=== PATIENT | female | born 1960 | race Caucasian/White ===

== ENCOUNTER 2017-01-31 19:48 | Inpatient (IN) | payer OTHER ==
--- NOTE | 2017-01-31 20:18 | ED ---
SOB HPI - General Source: patient, EMS, RN notes reviewed Mode of arrival: EMS Limitations: no limitations <Syd Multani - Last Filed: 01/31/17 22:47> <Burke Hodgson - Last Filed: 01/31/17 23:00> - General Chief Complaint: Shortness of Breath Stated Complaint: BELLA Time Seen by Provider: 01/31/17 20:04 - History of Present Illness Initial Comments: This a 56-year-old female presents emergency department chief complaint of shortness of breath. Patient states her last few days she's had increased shortness of breath. Patient has extensive medical history including CHF, COPD , asthma, A. fib, renal insufficiency, liver disease. Patient states that she normally does breathing treatments at home have not been helping. She did have treatment by EMS which gave her minimal relief. She does state that she's had more "gurgling". Patient states she's had some swelling of her lower extremities worse on the left because she dangles it over the edge of the bed. Patient has no history of DVTs. Patient states she takes Coumadin daily for A. fib. Patient denies any chest pain. Denies fever, chills. (Syd Multani) - Related Data Home Medications Medication Instructions Recorded Confirmed ALPRAZolam [Xanax] 0.25 mg PO TID PRN 05/19/15 09/23/16 HYDROcodone/APAP 10-325MG [[place] 1 tab PO Q4H PRN 05/19/15 09/23/16 10-325] Ipratropium/Albuterol Sulfate 1 puff INHALATION RT-QID 05/19/15 09/23/16 [Combivent Respimat Inhaler] Ipratropium-Albuterol Nebulize 3 ml INHALATION RT-DAILY PRN 08/30/16 09/23/16 [Duoneb 0.5 mg-3 mg/3 ml Soln] Ipratropium-Albuterol Nebulize 3 ml INHALATION RT-Q6H 08/30/16 09/23/16 [Duoneb 0.5 mg-3 mg/3 ml Soln] Atenolol 25 mg PO DAILY 09/14/16 09/23/16 Ferrous Sulfate [Feosol] 325 mg PO HS 09/14/16 09/23/16 Insulin Aspart [NovoLOG] See Protocol SQ ACHS 09/14/16 09/23/16 Pantoprazole Sodium [Protonix] 40 mg PO DAILY 09/14/16 09/23/16 Warfarin [Coumadin] 1.5 mg PO HS 09/14/16 09/23/16 predniSONE 20 mg PO DAILY 09/14/16 09/23/16 Bisacodyl [Dulcolax] 10 mg RECTAL DAILY PRN 09/23/16 09/23/16 Ipratropium/Albuterol Sulfate 1 puff INHALATION RT-QID 09/23/16 09/23/16 [Combivent Respimat Inhaler] Lactose-Reduced Food [Ensure Plus] 1 can PO BID@1000,1400 09/23/16 09/23/16 Magnesium Hydroxide [Milk of 2,400 mg PO DAILY PRN 09/23/16 09/23/16 Magnesia] Na Phos,M-B/Na Phos,Di-Ba [Fleet 133 ml RECTAL DAILY PRN 09/23/16 09/23/16 Adult] Sodium Polystyrene Sulfonate 15 gm PO ONCE@1600 09/23/16 09/23/16 [Kayexalate] cefTRIAXone [Rocephin] 2,000 mg IVPB Q24HR 09/23/16 09/23/16 Previous Rx's Medication Instructions Recorded Torsemide [Demadex] 40 mg PO BID #1 tablet 09/30/16 Allergies Allergy/AdvReac Type Severity Reaction Status Date / Time aspirin Allergy Unknown Verified 01/31/17 22:23 Review of Systems ROS Other: All systems not noted in ROS Statement are negative. <Syd Multani - Last Filed: 01/31/17 22:47> ROS Other: All systems not noted in ROS Statement are negative. <Burke Hodgson - Last Filed: 01/31/17 23:00> ROS Statement: Those systems with pertinent positive or pertinent negative responses have been documented in the HPI. Past Medical History Past Medical History: Atrial Fibrillation, Asthma, Heart Failure, COPD, Diabetes Mellitus, GI Bleed, Liver Disease Additional Past Medical History / Comment(s): Severe mitral valve stenosis and severe tricuspid valve regurgitation, Shoulder pain, emphysema History of Any Multi-Drug Resistant Organisms: VRE Date of last positivie culture/infection: 10/25/16 MDRO Source:: Urine Past Surgical History: Hysterectomy Additional Past Surgical History / Comment(s): 2 mitral valve balloon valvuloplasty Additional Past Anesthesia/Blood Transfusion Reaction / Comment(s): no history of previous blood transfusion Past Psychological History: Anxiety Additional Psychological History / Comment(s): Single. Lives with adult daughter. no experience or international travel. No animal exposures. Positive tobacco use. No current alcohol or injection drug use Smoking Status: Current every day smoker Past Alcohol Use History: None Reported Additional Past Alcohol Use History / Comment(s): states heavier ETOH use in teens and 20's, none recent Past Drug Use History: None Reported - Past Family History Father Family Medical History: Dementia Mother Additional Family Medical History / Comment(s): valve disorder <Syd Multani - Last Filed: 01/31/17 22:47> General Exam Limitations: no limitations General appearance: alert, in no apparent distress, cachectic Head exam: Present: atraumatic, normocephalic, normal inspection ENT exam: Present: normal exam, mucous membranes moist, other (Nasal cannula in place). Absent: normal oropharynx (Edentulous) Neck exam: Present: normal inspection. Absent: tenderness, meningismus, lymphadenopathy Respiratory exam: Present: respiratory distress (Mild), wheezes, rales. Absent : normal lung sounds bilaterally, rhonchi, stridor Cardiovascular Exam: Present: regular rate, normal rhythm, normal heart sounds. Absent: systolic murmur, diastolic murmur, rubs, gallop, clicks GI/Abdominal exam: Present: soft, normal bowel sounds. Absent: distended, tenderness, guarding, rebound, rigid <Syd Multani - Last Filed: 01/31/17 22:47> Medical Decision Making - Lab Data Result diagrams: 01/31/17 20:21 01/31/17 20:21 <Syd Multani - Last Filed: 01/31/17 22:47> - Lab Data Result diagrams: 01/31/17 20:21 01/31/17 20:21 <Burke Hodgson - Last Filed: 01/31/17 23:00> - Medical Decision Making Medical decision-making. The patient case was discussed with Dr. Eubanks her attending. Patient be admitted his service. Current problems including right upper and right lower lobe pneumonia with CHF discussed. The patient has not been on her Coumadin for 4 days she will be heparinized. Her current INR 1.2. She does have history of chronic A. fib. White count elevated 16.7 hemoglobin 9.4. She was started on Levaquin and Lasix since we have dressed emergency room. Dr. Eubanks wants her admitted with consultation from cardiology and pulmonary service Dr. raza . Dr. Hodgson (Burke Hodgson) - Lab Data Lab Results 01/31/17 01/31/17 01/31/17 Range/Units 20:21 20:21 20:21 WBC 16.6 H (3.8-10.6) k/uL RBC 4.57 (3.80-5.40) m/uL Hgb 9.4 L (11.4-16.0) gm/dL Hct 32.5 L (34.0-46.0) % MCV 71.0 L (80.0-100.0) fL MCH 20.6 L (25.0-35.0) pg MCHC 29.0 L (31.0-37.0) g/dL RDW 16.4 H (11.5-15.5) % Plt Count 257 (150-450) k/uL Neutrophils % 78 % Lymphocytes % 13 % Monocytes % 5 % Eosinophils % 2 % Basophils % 1 % Neutrophils # 13.0 H (1.3-7.7) k/uL Lymphocytes # 2.1 (1.0-4.8) k/uL Monocytes # 0.8 (0-1.0) k/uL Eosinophils # 0.3 (0-0.7) k/uL Basophils # 0.1 (0-0.2) k/uL Hypochromasia Marked Anisocytosis Slight Microcytosis Moderate PT (9.0-12.0) sec INR (<1.1) APTT (22.0-30.0) sec VBG pH (7.31-7.41) VBG pCO2 (37-51) mmHg VBG HCO3 (24-28) mmol/L Sodium 133 L (137-145) mmol/L Potassium 4.9 (3.5-5.1) mmol/L Chloride 101 (98-107) mmol/L Carbon Dioxide 26 (22-30) mmol/L Anion Gap 6 mmol/L BUN 16 (7-17) mg/dL Creatinine 0.63 (0.52-1.04) mg/dL Est GFR (MDRD) Af Amer >60 (>60 ml/min/1.73 sqM) Est GFR (MDRD) Non-Af >60 (>60 ml/min/1.73 sqM) Glucose 117 H (74-99) mg/dL Calcium 8.0 L (8.4-10.2) mg/dL Magnesium 2.0 (1.6-2.3) mg/dL Total Bilirubin 1.1 (0.2-1.3) mg/dL AST 33 (14-36) U/L ALT 19 (9-52) U/L Alkaline Phosphatase 137 H (38-126) U/L Total Creatine Kinase 68 (30-135) U/L CK-MB (CK-2) 4.4 H* (0.0-2.4) ng/mL CK-MB (CK-2) Rel Index 6.5 Troponin I 0.032 (0.000-0.034) ng/mL NT-Pro-B Natriuret Pep pg/mL Total Protein 6.5 (6.3-8.2) g/dL Albumin 2.6 L (3.5-5.0) g/dL 01/31/17 01/31/17 01/31/17 Range/Units 20:21 22:19 22:19 WBC (3.8-10.6) k/uL RBC (3.80-5.40) m/uL Hgb (11.4-16.0) gm/dL Hct (34.0-46.0) % MCV (80.0-100.0) fL MCH (25.0-35.0) pg MCHC (31.0-37.0) g/dL RDW (11.5-15.5) % Plt Count (150-450) k/uL Neutrophils % % Lymphocytes % % Monocytes % % Eosinophils % % Basophils % % Neutrophils # (1.3-7.7) k/uL Lymphocytes # (1.0-4.8) k/uL Monocytes # (0-1.0) k/uL Eosinophils # (0-0.7) k/uL Basophils # (0-0.2) k/uL Hypochromasia Anisocytosis Microcytosis PT 12.1 H (9.0-12.0) sec INR 1.2 (<1.1) APTT 28.6 (22.0-30.0) sec VBG pH 7.42 H (7.31-7.41) VBG pCO2 41 (37-51) mmHg VBG HCO3 26 (24-28) mmol/L Sodium (137-145) mmol/L Potassium (3.5-5.1) mmol/L Chloride (98-107) mmol/L Carbon Dioxide (22-30) mmol/L Anion Gap mmol/L BUN (7-17) mg/dL Creatinine (0.52-1.04) mg/dL Est GFR (MDRD) Af Amer (>60 ml/min/1.73 sqM) Est GFR (MDRD) Non-Af (>60 ml/min/1.73 sqM) Glucose (74-99) mg/dL Calcium (8.4-10.2) mg/dL Magnesium (1.6-2.3) mg/dL Total Bilirubin (0.2-1.3) mg/dL AST (14-36) U/L ALT (9-52) U/L Alkaline Phosphatase (38-126) U/L Total Creatine Kinase (30-135) U/L CK-MB (CK-2) (0.0-2.4) ng/mL CK-MB (CK-2) Rel Index Troponin I (0.000-0.034) ng/mL NT-Pro-B Natriuret Pep 6820 pg/mL Total Protein (6.3-8.2) g/dL Albumin (3.5-5.0) g/dL 01/31/17 21:22 EKG performed at 20:55 atrial fibrillation with right axis deviation, rate of 94 , QRS duration 82, QT/QTC 336/420 prior EKGs show history of A. fib (Syd Multani) Disposition <Syd Multani - Last Filed: 01/31/17 22:47> <Burke Hodgson - Last Filed: 01/31/17 23:00> Clinical Impression: COPD (chronic obstructive pulmonary disease), Afib, Anemia, Pneumonia, Congestive heart failure Disposition: ADMITTED IP TO THIS HOSP Condition: Poor Referrals: Morales Eubanks MD [Primary Care Provider] - 1-2 days
[2017-01-31] MEDS ORDERED: IPRATROPIUM-ALBUTEROL 3 ML NEB INHALATION STA (20:19)
[2017-01-31 20:37] LABS: Anisocytosis Slight; Basophils # (A) 0.1 k/uL (0-0.2); Basophils % (A) 1 %; CH 20.4; Eosinophils # (A) 0.3 k/uL (0-0.7); Eosinophils % (A) 2 %; HCT 32.5 % (34.0-46.0); HDW 3.24; HGB 9.4 gm/dL (11.4-16.0); Hypochromasia Marked; Luc # (Auto) 0.28; Luc % (Auto) 2; Lymphocytes # (A) 2.1 k/uL (1.0-4.8); Lymphocytes % (A) 13 %; MCH 20.6 pg (25.0-35.0); Mean Platelet Volume 7.2; Microcytosis Moderate; Monocytes # (A) 0.8 k/uL (0-1.0); Monocytes % (A) 5 %; Neutrophils % (A) 78 %; RBC 4.57 m/uL (3.80-5.40); RDW 16.4 % (11.5-15.5); WBC 16.6 k/uL (3.8-10.6); WBC (Perox) 17.24
[2017-01-31 20:55] LABS: ALT 19 U/L (9-52); AST 33 U/L (14-36); Alkaline Phosphatase 137 U/L (38-126); Anion Gap 6 mmol/L; Blood Urea Nitrogen 16 mg/dL (7-17); Carbon Dioxide 26 mmol/L (22-30); Chloride 101 mmol/L (98-107); Glucose 117 mg/dL (74-99); Non-African American GFR(MDRD) >60 (>60 ml/min/1.73 sqM); Potassium 4.9 mmol/L (3.5-5.1); Sodium 133 mmol/L (137-145); Total Bilirubin 1.1 mg/dL (0.2-1.3); Total Protein 6.5 g/dL (6.3-8.2)
[2017-01-31 21:14] LABS: Troponin I 0.032 ng/mL (0.000-0.034)
[2017-01-31 21:18] LABS: Creatine Kinase MB 4.4 ng/mL (0.0-2.4)
--- NOTE | 2017-01-31 21:20 | XR ---
EXAMINATION TYPE: XR chest 2V DATE OF EXAM: 01/31/2017 9:12 PM COMPARISON: Prior chest x-ray September 23, 2016. HISTORY: Shortness of breath TECHNIQUE: Frontal and lateral views of the chest are obtained. FINDINGS: Cardiomegaly is redemonstrated. There is new small to moderate-sized right pleural effusio n. There is tiny left pleural effusion. Mild to moderate central vascular congestion is present. Ther e is more focal airspace opacity involving the right upper lobe and right lung base. No pneumothorax is seen bilaterally. Underlying emphysematous change is not excluded. Osseous structures are intact. IMPRESSION: Consider CHF exacerbation as there is cardiomegaly with mild to moderate central vascular congestion with tiny left pleural effusion and small to moderate-sized right pleural effusion. In ad dition more suspicious focal infiltrate in the right upper lobe and right lung base is felt present. Clinical correlation advised.
[2017-01-31] MEDS ORDERED: LEVOFLOXACIN 750MG-D5W PMX 750 MG in DEXTROSE/WATER 1 150ML.BAG IVPB STA (21:21)
[2017-01-31] MEDS ORDERED: FUROSEMIDE 10 MG/ML 4 ML VIAL IV STA (21:21)
[2017-01-31] MEDS ORDERED: ALBUTEROL NEBULIZED 2.5 MG/3 ML INHALATION STA (21:59)
[2017-01-31] MEDS ORDERED: HYDROcodone/APAP 10-325MG 1 EACH TAB PO ONE (22:26)
[2017-01-31 22:35] LABS: VBG PH 7.42 (7.31-7.41)
[2017-01-31 22:44] LABS: INR 1.2 (<1.1); Partial Thromboplastin Time 28.6 sec (22.0-30.0); Prothrombin Time 12.1 sec (9.0-12.0)
[2017-01-31] MEDS ORDERED: PNEUMONIA PROTOCOL UTILIZED 1 EACH MISC PO PRN (22:48)
[2017-01-31] MEDS ORDERED: hydrOXYzine HCL 25 MG TAB PO STA (22:51)
[2017-01-31] MEDS ORDERED: HEPARIN SODIUM,PORCINE 5,000 UNIT/ML 1 ML VIAL IV ONE (22:51)
[2017-02-01] MEDS: HEPARIN SODIUM,PORCINE/D5W PMX 25,000 UNIT in DEXTROSE/WATER 1 500ML.BAG IV SCH (00:32)
[2017-02-01] MEDS: HYDROcodone/APAP 10-325MG 1 EACH TAB PO PRN ×4 (02:29→22:10)
[2017-02-01 05:54] LABS: Glucose,Whole Blood 172 mg/dL (75-99)
[2017-02-01] MEDS: FUROSEMIDE 10 MG/ML 4 ML VIAL IV SCH ×3 (07:19→23:23)
[2017-02-01] MEDS: INSULIN LISPRO (humaLOG) 300 UNIT/3 ML VIAL SQ SCH ×4 (07:31→23:30)
[2017-02-01] MEDS: IPRATROPIUM-ALBUTEROL 3 ML NEB INHALATION SCH ×4 (09:15→20:15)
[2017-02-01] MEDS: ATENOLOL 25 MG TAB PO SCH (09:39)
[2017-02-01] MEDS: PANTOPRAZOLE 40 MG TABLET PO SCH (09:39)
[2017-02-01] MEDS ORDERED: NON-FORMULARY DRUG (Lactose-Reduced Food [Ensure Plus] 1 CAN) PO SCH (10:00)
--- NOTE | 2017-02-01 11:08 | XR ---
EXAMINATION TYPE: XR chest 2V DATE OF EXAM: 02/01/2017 8:52 AM COMPARISON: Prior chest x-ray 31 January 2017 HISTORY: Shortness of breath TECHNIQUE: Frontal and lateral views of the chest are obtained. FINDINGS: Increased density is present at the right lung base similar to prior exam. There is no renny dent pneumothorax. Heart size is not significantly changed. Interstitium mildly increased. IMPRESSION: Correlate for right middle, upper lobe pneumonia. Follow-up recommended.
--- NOTE | 2017-02-01 11:39 | P.CNPUL ---
History of Present Illness Consult date: 02/01/17 Requesting physician: Morales Eubanks Reason for consult: COPD Chief complaint: Shortness of breath History of present illness: This is a 56-year-old female is being evaluated and examined today. This patient came into the emergency room with some complaint of shortness of breath that had been increasing over the last few days. This patient was brought in by a EMS and was given breathing treatments with minimal relief. The patient states that she's felt more "gurgling" in her lungs. The patient does have a significant medical history for congestive heart failure, COPD, asthma, A. fib, renal insufficiency, and liver disease. The patient also is noted to have some increased swelling of her lower extremities that has gotten worse over the last few days as well. Patient has no history of DVTs, and takes Coumadin daily for A. fib, however she has not taken her Coumadin for 4 days therefore she will be heparinized. This patient does use home oxygen in the form of 2 L, today she is using 6 L of oxygen via nasal cannula. Patient states that she has a dry productive cough. Review of Systems 14 point review of systems was completed and is negative other than what's noted in the HPI Past Medical History Past Medical History: Atrial Fibrillation, Asthma, Heart Failure, COPD, Diabetes Mellitus, GERD/Reflux, GI Bleed, Liver Disease, Pneumonia, Renal Disease, Skin Disorder Additional Past Medical History / Comment(s): Severe mitral valve stenosis and severe tricuspid valve regurgitation, current decub lower back per pt, UTI with sepsis, anemia, elevated liver enzymes in the past, chronic renal dx, Afib and has had RVR in past. History of Any Multi-Drug Resistant Organisms: VRE Date of last positivie culture/infection: 10/25/16 MDRO Source:: Urine Past Surgical History: Hysterectomy Additional Past Surgical History / Comment(s): 2 mitral valve balloon valvuloplasty, colonoscopy, PICC line insertion (since removed). Additional Past Anesthesia/Blood Transfusion Reaction / Comment(s): Pt has received blood in past without reaction. Past Psychological History: Anxiety Additional Psychological History / Comment(s): Single. Lives with adult daughter and her spouse. Has nebulizer and glucose monitor. no experience or international travel. No animal exposures. Positive tobacco use. No current alcohol or injection drug use Smoking Status: Current every day smoker Past Alcohol Use History: None Reported Additional Past Alcohol Use History / Comment(s): states heavier ETOH use in teens and 20's, none recent Past Drug Use History: None Reported - Past Family History Father Family Medical History: Dementia Additional Family Medical History / Comment(s): Father is in his 80's Mother Family Medical History: Myocardial Infarction ([place]) Additional Family Medical History / Comment(s): valve disorder. Mother of a [place] in her 30's Medications and Allergies Home Medications Medication Instructions Recorded Confirmed Type ALPRAZolam [Xanax] 0.25 mg PO BID PRN 05/19/15 02/01/17 History HYDROcodone/APAP 10-325MG [[place] 1 tab PO Q8H PRN 05/19/15 02/01/17 History 10-325] Ipratropium/Albuterol Sulfate 1 puff INHALATION RT-QID PRN 05/19/15 02/01/17 History [Combivent Respimat Inhaler] Albuterol Nebulized [Ventolin 2.5 mg INHALATION RT-QID PRN 02/01/17 02/01/17 History Nebulized] Amiodarone [Cordarone] 200 mg PO BID 02/01/17 02/01/17 History Digoxin [Digitek] 125 mcg PO DAILY 02/01/17 02/01/17 History Ipratropium Nebulized [Atrovent 0.5 mg INHALATION RT-QID PRN 02/01/17 02/01/17 History Nebulized] Warfarin [Coumadin] 1.5 mg PO HS 02/01/17 02/01/17 History hydrALAZINE HCL [Apresoline] 25 mg PO BID 02/01/17 02/01/17 History traZODone HCL 50 mg PO HS 02/01/17 02/01/17 History Allergies Allergy/AdvReac Type Severity Reaction Status Date / Time aspirin Allergy Unknown Verified 01/31/17 22:23 Physical Exam Vitals: Vital Signs Temp Pulse Pulse Resp BP BP Pulse Ox 02/01/17 09:26 66 02/01/17 09:15 59 L 02/01/17 09:01 95.6 F L 77 22 113/67 98 02/01/17 06:08 64 18 113/67 99 02/01/17 02:43 77 02/01/17 02:36 76 02/01/17 00:39 92 20 111/61 99 01/31/17 23:01 98.4 F 84 22 128/58 99 Intake and Output 01/31/17 02/01/17 02/01/17 22:59 06:59 14:59 Output Total 50 Balance -50 Output: Urine 50 Uretheral ([place]) 50 Other: Voiding Method Indwelling Catheter GENERAL EXAM: Alert, active, comfortable in no apparent distress. HEAD: Normocephalic. EYES: Normal reaction of pupils, equal size. NOSE: Clear with pink turbinates. THROAT: No erythema or exudates. NECK: No masses, no JVD. CHEST: No chest wall deformity. LUNGS: Equal air entry, patient noted to have scattered rhonchi, wheezes and rales. CVS: S1 and S2 normal with no audible mumurs, regular rhythm. ABDOMEN: No hepatosplenomegaly, normal bowel sounds, no guarding or rigidity. EXTREMITIES: 1-2+ edema noted, pedal pulses palpable. SKIN: No rashes CENTRAL NERVOUS SYSTEM: No focal deficits, tone is normal in all 4 extremities. Results - Laboratory Findings CBC and BMP: 01/31/17 20:21 01/31/17 20:21 PT/INR, D-dimer PT 12.1 sec (9.0-12.0) H 01/31/17 22:19 INR 1.2 (<1.1) 01/31/17 22:19 Abnormal lab findings: Abnormal Labs 02/01/17 02/01/17 05:52 05:53 APTT 52.9 H POC Glucose (mg/dL) 172 H - Diagnostic Findings Chest x-ray: report reviewed, image reviewed Assessment and Plan Plan: Assessment Right-sided pneumonia suspected mixed, gram-negative in nature Acute exacerbation of chronic obstructive pulmonary disease Acute on chronic hypoxic respiratory failure Congestive heart failure, diastolic Anemia Atrial fibrillation Plan Medications have been reviewed and will be continued as ordered. IV steroids as well as budesonide inhalation added. We will continue with nebulizer treatments, supplemental oxygen and pulmonary hygiene. Incentive spirometer will be initiated. We will continue to monitor labs/results and adjust treatment as necessary. I performed an examination of the patient and discussed their management with the nurse practitioner. I have reviewed the nurse practitioner's note and agree with the documented findings and plan of care.
[2017-02-01 12:35] LABS: Glucose,Whole Blood 210 mg/dL (75-99)
[2017-02-01] MEDS: methylPREDNISolone SOD SUCCI 40 MG/ML 1 ML VIAL IV SCH ×3 (13:17→23:25)
[2017-02-01 14:20] LABS: Hemoglobin A1C 4.9 % (4.2-6.1)
[2017-02-01 16:30] LABS: Glucose,Whole Blood 118 mg/dL (75-99)
[2017-02-01] MEDS: SODIUM POLYSTYRENE SULFONATE 15 GM/60 ML BOTTLE PO SCH (16:57)
--- NOTE | 2017-02-01 19:35 | HP ---
DATE OF ADMISSION: Patient is in the emergency room waiting for a room. CHIEF COMPLAINT: Severe shortness of breath and general weakness and multiple chronic medical problems. This is a 56-year-old white female who has multiple chronic medical problems and she is known to have chronic obstructive pulmonary disease, chronic congestive heart failure, chronic atrial fibrillation, diabetes mellitus, hypertensive cardiovascular disease, and she has had multiple hospitalizations recently. She also has been in [facility] rehab unit. She is also known to have advanced mitral stenosis with chronic atrial fibrillation. Patient was brought to the emergency room because of increasing shortness of breath for the past one week. In the ER, her CBC showed a WBC of 16.6, hemoglobin 9.4, platelet count 257,000; sodium 133 and potassium 4.9; BNP of 6820. BUN 16 and creatinine 0.63. Her chest x-ray showed right middle and lower lobe pneumonia. Her pulse ox was extremely low. Patient was admitted to the hospital for further evaluation and treatment. PAST MEDICAL HISTORY: She is known to have chronic obstructive pulmonary disease and has had multiple hospitalizations for chronic obstructive pulmonary disease with acute exacerbation and also hypoxic respiratory failure. She has advanced mitral stenosis and has had mitral valvuloplasty in the past. She has chronic atrial fibrillation and chronic congestive heart failure. She is also known to have diabetes mellitus, hypertensive cardiovascular disease and chronic atrial fibrillation. She also has a history of renal failure and electrolyte imbalance. She has a history of VRE. Her current medications include: 1. Xanax 0.25 mg p.o. t.i.d. p.r.n. 2. [place] 10/325 one q.8 hours p.r.n. for pain. She has a history of low back pain. 3. She is also on inhalers and nebulizers DuoNeb and Ventolin. 4. Atenolol 25 mg p.o. daily. 5. Ferrous sulfate 325 mg daily. 6. NovoLog sliding scale. 7. Protonix 40 mg p.o. daily. 8. Coumadin 1.5 mg p.o. daily. 9. Prednisone 20 mg p.o. daily. 10. Kayexalate 15 grams once daily p.r.n. for hyperkalemia. 11. Demadex 40 mg p.o. b.i.d. ALLERGIES: QUESTIONABLY ALLERGIC TO ASPIRIN. SOCIAL HISTORY: She used to be a heavy smoker. She does not drink alcohol. FAMILY HISTORY: Strongly positive for heart disease and diabetes mellitus. REVIEW OF SYSTEMS: Patient denies any headache. Her appetite has been extremely poor. She denies any chest pain, but she is extremely short of breath. She has a history of low back pain and also she has a history of GI bleeding. She has no polyuria or dysuria. She has no neurological symptoms. Physical examination reveals a 56-year-old white female, emaciated and chronically ill-looking. She appears pale and she is extremely short of breath. There is no jaundice. There is no generalized lymphadenopathy. There are no petechiae or bruises. Pulse 88 per minute, irregular. Blood pressure 128/58. Examination of the ENT is negative. Neck is supple. Neck veins are distended. Heart is in atrial fibrillation with controlled ventricular rate. Lungs reveal diminished breath sounds over both base with a few scattered rhonchi and wheezing heard bilaterally. ABDOMEN: Soft and nontender. No mass palpable. Examination of the lower extremities reveals minimal pitting edema. Neurologic examination does not reveal any localizing signs. IMPRESSION: 1. Right middle and lower lobe pneumonia. 2. Chronic obstructive pulmonary disease with acute exacerbation. 3. Hypoxic respiratory failure, acute on chronic. 4. Acute on chronic congestive heart failure, combined diastolic and systolic. 5. Advanced mitral stenosis with a past history of valvuloplasty. 6. Chronic atrial fibrillation. 7. Chronic microcytic anemia due to possible chronic gastrointestinal blood loss. 8. History of chronic renal failure. 9. Hyponatremia. 10. Diabetes mellitus. 11. History of gastroesophageal reflux disease. PLAN: Patient will be admitted to hospital. Heart will be monitored with telemetry. Will get a pulmonology consultation. Dr. Hinds has already been consulted. Will also get cardiology consultation. Prognosis is guarded. Patient will be started on IV antibiotics, updraft treatments, IV Solu-Medrol and placed back on her previous medications. The prognosis is guarded. The diagnosis, prognosis and therapeutic plans were discussed in detail with the patient.
[2017-02-01] MEDS: BUDESONIDE 0.5 MG/2 ML NEBU INHALATION SCH (20:15)
[2017-02-01] MEDS ORDERED: WARFARIN 1.5 MG TAB PO SCH ×2 (21:00)
[2017-02-01] MEDS: LEVOFLOXACIN 750MG-D5W PMX 750 MG in DEXTROSE/WATER 1 150ML.BAG IVPB SCH (22:12)
[2017-02-01] MEDS: ALPRAZolam 0.25 MG TAB PO PRN (23:22)
[2017-02-01] MEDS: traZODone HCL 50 MG TAB PO SCH (23:23)
[2017-02-01] MEDS: hydrALAZINE HCL 25 MG TAB PO SCH (23:23)
[2017-02-01] MEDS: AMIODARONE 200 MG TAB PO SCH (23:23)
[2017-02-02] MEDS: INSULIN LISPRO (humaLOG) 300 UNIT/3 ML VIAL SQ SCH ×4 (06:20→20:49)
[2017-02-02 06:50] LABS: INR 1.2 (<1.1); Prothrombin Time 12.1 sec (9.0-12.0)
[2017-02-02] MEDS: HEPARIN SODIUM,PORCINE/D5W PMX 25,000 UNIT in DEXTROSE/WATER 1 500ML.BAG IV SCH ×2 (06:56→23:14)
[2017-02-02] MEDS: methylPREDNISolone SOD SUCCI 40 MG/ML 1 ML VIAL IV SCH ×4 (07:00→23:11)
[2017-02-02] MEDS: IPRATROPIUM-ALBUTEROL 3 ML NEB INHALATION SCH ×5 (07:44→20:23)
[2017-02-02] MEDS: BUDESONIDE 0.5 MG/2 ML NEBU INHALATION SCH ×2 (07:44→20:23)
[2017-02-02] MEDS: HYDROcodone/APAP 10-325MG 1 EACH TAB PO PRN ×4 (09:31→20:57)
[2017-02-02] MEDS: AMIODARONE 200 MG TAB PO SCH ×2 (09:41→20:47)
[2017-02-02] MEDS: ATENOLOL 25 MG TAB PO SCH (09:41)
[2017-02-02] MEDS: PANTOPRAZOLE 40 MG TABLET PO SCH (09:43)
[2017-02-02 10:27] LABS: Anisocytosis Slight; Basophils % (A) 0 %; CH 20.4; CHCM 28.4; Eosinophils % (A) 0 %; HDW 3.11; HGB 8.1 gm/dL (11.4-16.0); Hypochromasia Marked; Luc # (Auto) 0.07; Luc % (Auto) 1; Lymphocytes # (A) 1.2 k/uL (1.0-4.8); Lymphocytes % (A) 13 %; MCH 19.6 pg (25.0-35.0); MCV 72.5 fL (80.0-100.0); Mean Platelet Volume 8.2; Microcytosis Moderate; Monocytes # (A) 0.3 k/uL (0-1.0); Monocytes % (A) 3 %; Neutrophils # (A) 7.6 k/uL (1.3-7.7); Neutrophils % (A) 83 %; RBC 4.14 m/uL (3.80-5.40); RDW 16.2 % (11.5-15.5); WBC 9.2 k/uL (3.8-10.6); WBC (Perox) 9.42
[2017-02-02 10:31] LABS: MCHC 27.1 g/dL (31.0-37.0)
[2017-02-02 10:41] LABS: ALT 21 U/L (9-52); AST 18 U/L (14-36); Alkaline Phosphatase 94 U/L (38-126); Anion Gap 2 mmol/L; Blood Urea Nitrogen 22 mg/dL (7-17); Carbon Dioxide 32 mmol/L (22-30); Chloride 99 mmol/L (98-107); Glucose 107 mg/dL (74-99); Magnesium 1.7 mg/dL (1.6-2.3); Non-African American GFR(MDRD) >60 (>60 ml/min/1.73 sqM); Potassium 4.5 mmol/L (3.5-5.1); Sodium 133 mmol/L (137-145); Total Bilirubin 0.6 mg/dL (0.2-1.3); Total Protein 5.8 g/dL (6.3-8.2)
--- NOTE | 2017-02-02 10:53 | P.PN ---
Subjective This is a 56-year-old female who is being evaluated and examined today on the sixth floor. Patient came into the emergency room originally with complaints of shortness of breath that had been increasing over the last few days. The patient was brought in by EMS and was given breathing treatments with minimal relief. Patient states that she feels her lungs are "gurgling". Patient does have a significant medical history for congestive heart failure, COPD, asthma, atrial fibrillation, renal insufficiency, and liver disease. The patient also noted to have some increased swelling of her lower extremities that has gotten worse over the last few days as well. Patient has no history of DVTs and takes Coumadin daily for her atrial fibrillation however she has not taken her Coumadin in the last 4 days. The patient does use home oxygen at all times in the form of 2 L via nasal cannula. When she came into the emergency room she was requiring oxygen of 6 L. Upon examination the patient's resting up in bed on 3 L of oxygen she complains of a dry nonproductive cough. Objective - Vital Signs Vital signs: Vital Signs Temp 96.2 F L 02/02/17 09:38 Pulse 94 02/02/17 09:45 Resp 16 02/02/17 09:38 BP 99/56 02/02/17 09:38 Pulse Ox 98 02/02/17 09:38 Intake & Output 02/01/17 02/02/17 02/02/17 18:59 06:59 18:59 Intake Total 750 853.36 320 Balance 750 853.36 320 Weight 52.5 kg Intake: IV 423.2 0.9 160 Heparin Sodium,Porcine/ 113.2 D5w Pmx 25,000 unit In Dextrose/Water 1 500ml. bag @ 12 UNITS/KG/HR 14. 15 mls/hr IV .Q24H [facility] Rx #:[id number] Levofloxacin 750Mg-D5w 150 Pmx 750 mg In Dextrose/ Water 1 150ml.bag @ 100 mls/hr IVPB Q24H [facility] Rx#: [id number] Intake, IV Titration 430.16 Amount Heparin Sodium,Porcine/ 430.16 D5w Pmx 25,000 unit In Dextrose/Water 1 500ml. bag @ 12 UNITS/KG/HR 14. 15 mls/hr IV .Q24H [facility] Rx #:[id number] Oral 750 320 Other: Voiding Method Toilet Toilet - Exam GENERAL EXAM: Alert, active, comfortable in no apparent distress. HEAD: Normocephalic. EYES: Normal reaction of pupils, equal size. NOSE: Clear with pink turbinates. THROAT: No erythema or exudates. NECK: No masses, no JVD. CHEST: No chest wall deformity. LUNGS: Equal air entry with few scattered rhonchi, some expiratory wheezes CVS: S1 and S2 normal with no audible mumurs, regular rhythm. ABDOMEN: No hepatosplenomegaly, normal bowel sounds, no guarding or rigidity. EXTREMITIES: Trace edema noted, pedal pulses palpable. SKIN: No rashes CENTRAL NERVOUS SYSTEM: No focal deficits, tone is normal in all 4 extremities. - Labs CBC & Chem 7: 02/02/17 06:25 01/31/17 20:21 Labs: Abnormal Lab Results - Last 24 Hours (Table) 02/01/17 02/01/17 02/01/17 Range/Units 12:09 16:29 18:39 Hgb (11.4-16.0) gm/dL Hct (34.0-46.0) % MCV (80.0-100.0) fL MCH (25.0-35.0) pg MCHC (31.0-37.0) g/dL RDW (11.5-15.5) % PT (9.0-12.0) sec APTT (22.0-30.0) sec POC Glucose (mg/dL) 210 H 118 H (75-99) mg/dL Troponin I 0.446 H* (0.000-0.034) ng/mL 02/02/17 02/02/17 02/02/17 Range/Units 01:03 06:25 06:25 Hgb 8.1 L (11.4-16.0) gm/dL Hct 30.0 L (34.0-46.0) % MCV 72.5 L (80.0-100.0) fL MCH 19.6 L (25.0-35.0) pg MCHC 27.1 L (31.0-37.0) g/dL RDW 16.2 H (11.5-15.5) % PT 12.1 H (9.0-12.0) sec APTT 40.0 H (22.0-30.0) sec POC Glucose (mg/dL) (75-99) mg/dL Troponin I 0.263 H* (0.000-0.034) ng/mL Assessment and Plan Plan: Assessment Right-sided pneumonia suspected mixed, gram-negative in nature Acute exacerbation of chronic obstructive pulmonary disease Acute on chronic hypoxic respiratory failure Congestive heart failure, combined systolic and diastolic Anemia Atrial fibrillation Plan Medications have been reviewed and will be continued as ordered. IV steroids as well as budesonide inhalation continued. We will continue with nebulizer treatments, supplemental oxygen and pulmonary hygiene. Incentive spirometer encouraged. We will continue to monitor labs/results and adjust treatment as necessary. I performed an examination of the patient and discussed their management with the nurse practitioner. I have reviewed the nurse practitioner's note and agree with the documented findings and plan of care.
[2017-02-02 11:55] LABS: Glucose,Whole Blood 255 mg/dL (75-99)
[2017-02-02] MEDS: hydrALAZINE HCL 25 MG TAB PO SCH ×2 (13:09→20:47)
[2017-02-02] MEDS: FUROSEMIDE 10 MG/ML 4 ML VIAL IV SCH ×2 (13:10→20:48)
[2017-02-02] MEDS ORDERED: HEPARIN SODIUM,PORCINE 5,000 UNIT/ML 1 ML VIAL IV PRN (14:40)
[2017-02-02 14:49] LABS: Glucose,Whole Blood 125 mg/dL (75-99)
[2017-02-02 14:49] LABS: Glucose,Whole Blood 179 mg/dL (75-99)
--- NOTE | 2017-02-02 14:54 | P.CRDCN ---
History of Present Illness Consult date: 02/02/17 Requesting physician: Morales Eubanks Consult reason: shortness of breath Chief complaint: Productive cough and shortness of breath History of present illness: This is a 56-year-old female with known history of atrial fibrillation , severe mitral stenosis, COPD, renal failure, congestive heart failure admissions, who presented to the hospital with symptoms of severe shortness of breath with associated productive cough of green sputum. Patient also states she's been progressively more and more weak over time. Patient was in to [facility] for rehab. White blood cell count on admission 16.6, hemoglobin 9.4, platelet count 257. Potassium 4.9, BUN 16, creatinine 0.3. Troponin 0.032, 0.446, 0.263. BNP level 6820. Chest x-ray reveals congestive heart failure exacerbation with mild to moderate central vascular congestion and tiny left pleural effusion. Subsequent chest x-ray revealed right middle upper lobe pneumonia. EKG on admission atrial fibrillation with a controlled ventricular response. Patient currently receiving treatment for congestive heart failure along with pneumonia. Patient was noted to have mildly abnormal troponins, not consistent with acute coronary syndrome. Past Medical History Past Medical History: Atrial Fibrillation, Asthma, Heart Failure, COPD, Diabetes Mellitus, GERD/Reflux, GI Bleed, Liver Disease, Pneumonia, Renal Disease, Skin Disorder Additional Past Medical History / Comment(s): Severe mitral valve stenosis and severe tricuspid valve regurgitation, current decub lower back per pt, UTI with sepsis, anemia, elevated liver enzymes in the past, chronic renal dx, Afib and has had RVR in past. History of Any Multi-Drug Resistant Organisms: VRE Date of last positivie culture/infection: 10/25/16 MDRO Source:: Urine Past Surgical History: Hysterectomy Additional Past Surgical History / Comment(s): 2 mitral valve balloon valvuloplasty, colonoscopy, PICC line insertion (since removed). Additional Past Anesthesia/Blood Transfusion Reaction / Comment(s): Pt has received blood in past without reaction. Past Psychological History: Anxiety Additional Psychological History / Comment(s): Single. Lives with adult daughter and her spouse. Has nebulizer and glucose monitor. no experience or international travel. No animal exposures. Positive tobacco use. No current alcohol or injection drug use Smoking Status: Current every day smoker Past Alcohol Use History: None Reported Additional Past Alcohol Use History / Comment(s): states heavier ETOH use in teens and 20's, none recent Past Drug Use History: None Reported - Past Family History Father Family Medical History: Dementia Additional Family Medical History / Comment(s): Father is in his 80's Mother Family Medical History: Myocardial Infarction ([place]) Additional Family Medical History / Comment(s): valve disorder. Mother of a [place] in her 30's Medications and Allergies Home Medications Medication Instructions Recorded Confirmed Type ALPRAZolam [Xanax] 0.25 mg PO BID PRN 05/19/15 02/01/17 History HYDROcodone/APAP 10-325MG [Central 1 tab PO Q8H PRN 05/19/15 02/01/17 History 10-325] Ipratropium/Albuterol Sulfate 1 puff INHALATION RT-QID PRN 05/19/15 02/01/17 History [Combivent Respimat Inhaler] Albuterol Nebulized [Ventolin 2.5 mg INHALATION RT-QID PRN 02/01/17 02/01/17 History Nebulized] Amiodarone [Cordarone] 200 mg PO BID 02/01/17 02/01/17 History Digoxin [Digitek] 125 mcg PO DAILY 02/01/17 02/01/17 History Ipratropium Nebulized [Atrovent 0.5 mg INHALATION RT-QID PRN 02/01/17 02/01/17 History Nebulized] Warfarin [Coumadin] 1.5 mg PO HS 02/01/17 02/01/17 History hydrALAZINE HCL [Apresoline] 25 mg PO BID 02/01/17 02/01/17 History traZODone HCL 50 mg PO HS 02/01/17 02/01/17 History Allergies Allergy/AdvReac Type Severity Reaction Status Date / Time aspirin Allergy Unknown Verified 01/31/17 22:23 Physical Exam Vitals: Vital Signs Temp Pulse Pulse Resp BP Pulse Ox 02/02/17 13:06 66 02/02/17 12:55 59 L 02/02/17 12:00 96.3 F L 56 L 16 109/58 100 02/02/17 09:45 94 02/02/17 09:38 96.2 F L 58 L 16 99/56 98 02/02/17 08:01 60 02/02/17 07:44 55 L 02/02/17 04:00 97.7 F 61 18 98/56 97 02/02/17 00:00 97.2 F L 60 18 112/62 100 02/01/17 20:33 64 02/01/17 20:15 60 02/01/17 20:00 97.7 F 59 L 20 105/63 100 02/01/17 16:34 64 02/01/17 16:25 60 02/01/17 16:00 96.9 F L 65 20 98/55 100 02/01/17 15:10 55 L 22 Intake and Output 02/01/17 02/02/17 02/02/17 22:59 06:59 14:59 Intake Total 600 853.36 616 Balance 600 853.36 616 Intake: IV 423.2 296 0.9 160 160 Heparin Sodium,Porcine/ 113.2 136 D5w Pmx 25,000 unit In Dextrose/Water 1 500ml. bag @ 12 UNITS/KG/HR 14. 15 mls/hr IV .Q24H [facility] Rx #:[id number] Levofloxacin 750Mg-D5w 150 Pmx 750 mg In Dextrose/ Water 1 150ml.bag @ 100 mls/hr IVPB Q24H [facility] Rx#: [id number] Intake, IV Titration 430.16 Amount Heparin Sodium,Porcine/ 430.16 D5w Pmx 25,000 unit In Dextrose/Water 1 500ml. bag @ 12 UNITS/KG/HR 14. 15 mls/hr IV .Q24H [facility] Rx #:[id number] Oral 600 320 Other: Voiding Method Toilet Toilet Indwelling Catheter Weight 52.5 kg 52.5 kg Patient Weight 02/03/17 06:59 Weight 52.5 kg PHYSICAL EXAMINATION: HEENT: Head is atraumatic, normocephalic. Pupils equal, round. Neck is supple. There is no elevated jugular venous pressure. HEART EXAMINATION: Heart S1 and S2 irregularly irregular, diastolic murmur is heard as well as systolic murmur. CHEST EXAMINATION: Lungs reveal decreased air exchange to bilateral bases with fine rales to the bases. ABDOMEN: Soft, nontender. Bowel sounds are heard. No organomegaly noted. EXTREMITIES: 2+ peripheral pulses with 1+ evidence of peripheral edema and no calf tenderness noted. NEUROLOGIC patient is awake, alert and oriented -3. . Results 02/02/17 06:25 02/02/17 06:25 Cardiac Enzymes 02/01/17 02/02/17 02/02/17 Range/Units 18:39 01:03 06:25 AST 18 (14-36) U/L Troponin I 0.446 H* 0.263 H* (0.000-0.034) ng/mL Coagulation 02/02/17 02/02/17 Range/Units 06:25 13:29 PT 12.1 H (9.0-12.0) sec APTT 40.0 H 38.5 H (22.0-30.0) sec CBC 02/02/17 Range/Units 06:25 WBC 9.2 (3.8-10.6) k/uL RBC 4.14 (3.80-5.40) m/uL Hgb 8.1 L (11.4-16.0) gm/dL Hct 30.0 L (34.0-46.0) % Plt Count 185 (150-450) k/uL Comprehensive Metabolic Panel 02/02/17 Range/Units 06:25 Sodium 133 L (137-145) mmol/L Potassium 4.5 (3.5-5.1) mmol/L Chloride 99 (98-107) mmol/L Carbon Dioxide 32 H (22-30) mmol/L BUN 22 H (7-17) mg/dL Creatinine 0.88 (0.52-1.04) mg/dL Glucose 107 H (74-99) mg/dL Calcium 8.0 L (8.4-10.2) mg/dL AST 18 (14-36) U/L ALT 21 (9-52) U/L Alkaline Phosphatase 94 (38-126) U/L Total Protein 5.8 L (6.3-8.2) g/dL Albumin 2.3 L (3.5-5.0) g/dL Current Medications Generic Name Dose Route Start Last Admin Trade Name Freq PRN Reason Stop Dose Admin Hydrocodone Bitart/Acetaminophen 1 each 01/31/17 22:34 02/02/17 13:09 Central 10 PO 1 each Q4H PRN Administration Pain Albuterol/Ipratropium 3 ml 02/01/17 08:00 02/02/17 12:55 Duoneb 0.5 Mg-3 Mg/3 Ml Soln INHALATION 3 ml RT-QID [facility] Administration Albuterol/Ipratropium 3 ml 01/31/17 23:53 Duoneb 0.5 Mg-3 Mg/3 Ml Soln INHALATION RT-Q2H PRN Shortness Of Breath Or Wheezing Alprazolam 0.25 mg 01/31/17 22:34 02/01/17 23:22 Xanax PO 0.25 mg TID PRN Administration Anxiety Amiodarone HCl 200 mg 02/01/17 21:00 02/02/17 09:41 Cordarone PO 200 mg BID [facility] Administration Atenolol 25 mg 02/01/17 09:00 02/02/17 09:41 Tenormin PO 25 mg DAILY [facility] Administration Budesonide 0.5 mg 02/01/17 20:00 02/02/17 07:44 Pulmicort INHALATION 0.5 mg RT-BID [facility] Administration Ferrous Sulfate 325 mg 02/02/17 13:30 Feosol PO W/LUNCH [facility] Furosemide 40 mg 01/31/17 23:00 02/02/17 13:10 Lasix IV 40 mg Q12H [facility] Administration Heparin Sodium (Porcine) 0 unit 02/02/17 14:40 Heparin IV PER PROTOCOL PRN Low PTT Protocol Hydralazine HCl 25 mg 02/01/17 21:00 02/02/17 13:09 Apresoline PO 25 mg BID [facility] Administration Levofloxacin 750 mg/ IV 150 mls @ 100 mls/hr 02/01/17 21:00 02/01/17 22:12 Solution IVPB 02/13/17 21:01 100 mls/hr Q24H [facility] Administration Heparin Sodium/Dextrose 25,000 500 mls @ 14.15 mls/hr 01/31/17 23:00 06:56 unit/ IV Solution IV 14 units/kg/hr .Q24H [facility] 16.51 mls/hr Protocol Administration 12 UNITS/KG/HR Insulin Human Lispro 0 unit 02/01/17 07:30 02/02/17 13:14 Humalog SQ 4 unit ACHS [facility] Administration Protocol Magnesium Hydroxide 2,400 mg 01/31/17 22:34 Milk Of Magnesia PO DAILY PRN Constipation Methylprednisolone Sodium Succinate 40 mg 02/01/17 12:00 02/02/17 13:10 Solu-Medrol IV 40 mg Q6HR [facility] Administration Miscellaneous Information 1 each 01/31/17 22:48 Pneumonia Protocol Utilized PO ONCE PRN Per Protocol Pantoprazole Sodium 40 mg 02/01/17 09:00 02/02/17 09:43 Protonix PO 40 mg DAILY [facility] Administration Sodium Polystyrene Sulfonate 15 gm 02/01/17 16:00 02/01/17 16:57 Kayexalate PO Not Given ONCE@1600 [facility] Trazodone HCl 50 mg 02/01/17 21:00 02/01/17 23:23 Desyrel PO Not Given HS [facility] Warfarin Sodium 2 mg 02/02/17 18:00 Coumadin PO 02/02/17 18:01 ONCE@1800 ONE Warfarin Sodium 1.5 mg 02/03/17 21:00 Coumadin PO HS [facility] Intake and Output 02/01/17 02/02/17 02/02/17 22:59 06:59 14:59 Intake Total 600 853.36 616 Balance 600 853.36 616 Intake: IV 423.2 296 0.9 160 160 Heparin Sodium,Porcine/ 113.2 136 D5w Pmx 25,000 unit In Dextrose/Water 1 500ml. bag @ 12 UNITS/KG/HR 14. 15 mls/hr IV .Q24H [facility] Rx #:[id number] Levofloxacin 750Mg-D5w 150 Pmx 750 mg In Dextrose/ Water 1 150ml.bag @ 100 mls/hr IVPB Q24H [facility] Rx#: [id number] Intake, IV Titration 430.16 Amount Heparin Sodium,Porcine/ 430.16 D5w Pmx 25,000 unit In Dextrose/Water 1 500ml. bag @ 12 UNITS/KG/HR 14. 15 mls/hr IV .Q24H [facility] Rx #:[id number] Oral 600 320 Other: Voiding Method Toilet Toilet Indwelling Catheter Weight 52.5 kg 52.5 kg Patient Weight 02/03/17 06:59 Weight 52.5 kg 02/02/17 06:25 02/02/17 06:25 EKG Interpretations (text) EKG shows atrial fibrillation with a controlled ventricular response. Assessment and Plan Plan: Assessment and plan #1 symptoms of progressively worsening shortness of breath with productive green sputum. Evidence of pneumonia and heart failure on the chest x-ray. Patient is currently on IV antibiotics and IV Lasix. Echocardiogram with Doppler study performed in August revealed an ejection fraction of 55-60%. Severe mitral stenosis. #2 chronic persistent atrial fibrillation #3 COPD #4 history of prior valvuloplasty #5 anemia Plan We will repeat an echocardiogram with Doppler study. Continue IV Lasix for 24 hours. It appears that we are dealing more with a pneumonia type picture. We will switch the patient over to by mouth Lasix in the morning. DNP note has been reviewed, I agree with a documented findings and plan of care. Patient was seen and examined.
--- NOTE | 2017-02-02 15:29 | PN ---
DATE OF SERVICE: 02/02/2017 This is a 56-year-old white female who has multiple chronic illness and she was brought to the emergency room because of severe shortness of breath, weakness and she was found to have found to have chronic obstructive pulmonary disease with acute exacerbation and the right middle and lower lobe pneumonia and acute on chronic congestive heart failure and also severe anemia due to chronic blood loss and her hemoglobin today is 8.1 and the patient is currently receiving IV antibiotics and updraft treatments and also IV Lasix and she has been placed back on all of the home medications. Patient is also known to have diabetes mellitus and has already been seen by Dr. Hinds in consultation. Patient is getting updraft treatments, IV Solu-Medrol. Patient has congestive heart failure and chronic atrial fibrillation, chronic mitral stenosis for which she has had valvuloplasty in the past. Today patient feeling better. She is less dyspneic, but because she is looking extremely pale because of anemia. Cardiology consultation is pending we will continue current medications and her vital signs are stable. Blood pressure 132/56. Heart is in atrial fibrillation with a controlled ventricular rate. Diabetes is being controlled with NovoLog sliding scale. Overall prognosis guarded because of hemoglobin is 8.[address] her on ferrous sulfate 325 mg daily.
[2017-02-02] MEDS: SODIUM POLYSTYRENE SULFONATE 15 GM/60 ML BOTTLE PO SCH (15:47)
[2017-02-02 16:09] LABS: Glucose,Whole Blood 226 mg/dL (75-99)
[2017-02-02] MEDS: FERROUS SULFATE 325 MG TAB PO SCH (17:09)
[2017-02-02] MEDS ORDERED: WARFARIN 2 MG TAB PO ONE (18:00)
[2017-02-02] MEDS: traZODone HCL 50 MG TAB PO SCH (20:48)
[2017-02-02] MEDS: LEVOFLOXACIN 750MG-D5W PMX 750 MG in DEXTROSE/WATER 1 150ML.BAG IVPB SCH (20:48)
[2017-02-02 20:49] LABS: Glucose,Whole Blood 199 mg/dL (75-99)
[2017-02-02] MEDS: MAGNESIUM HYDROXIDE 2,400 MG/10 ML CUP PO PRN (20:49)
[2017-02-03] MEDS: ALPRAZolam 0.25 MG TAB PO PRN ×2 (00:02→16:06)
[2017-02-03] MEDS: HYDROcodone/APAP 10-325MG 1 EACH TAB PO PRN ×5 (02:07→20:32)
[2017-02-03 05:58] LABS: Glucose,Whole Blood 137 mg/dL (75-99)
[2017-02-03] MEDS: methylPREDNISolone SOD SUCCI 40 MG/ML 1 ML VIAL IV SCH ×3 (06:20→17:15)
[2017-02-03] MEDS: INSULIN LISPRO (humaLOG) 300 UNIT/3 ML VIAL SQ SCH ×4 (06:20→20:20)
[2017-02-03 06:40] LABS: Basophils % (A) 0 %; CH 20.5; CHCM 29.1; Eosinophils % (A) 0 %; HCT 28.3 % (34.0-46.0); HDW 3.17; Hypochromasia Marked; Luc # (Auto) 0.06; Luc % (Auto) 1; Lymphocytes # (A) 0.8 k/uL (1.0-4.8); Lymphocytes % (A) 10 %; MCH 20.2 pg (25.0-35.0); MCHC 28.3 g/dL (31.0-37.0); MCV 71.2 fL (80.0-100.0); Mean Platelet Volume 7.6; Microcytosis Moderate; Monocytes # (A) 0.3 k/uL (0-1.0); Monocytes % (A) 4 %; Neutrophils # (A) 7.2 k/uL (1.3-7.7); Neutrophils % (A) 86 %; RBC 3.98 m/uL (3.80-5.40); RDW 15.9 % (11.5-15.5); WBC 8.3 k/uL (3.8-10.6); WBC (Perox) 8.96
[2017-02-03 06:49] LABS: INR 1.6 (<1.1); Partial Thromboplastin Time 62.4 sec (22.0-30.0); Prothrombin Time 15.3 sec (9.0-12.0)
[2017-02-03 06:58] LABS: Anion Gap 4 mmol/L; Blood Urea Nitrogen 21 mg/dL (7-17); Calcium 7.7 mg/dL (8.4-10.2); Carbon Dioxide 33 mmol/L (22-30); Chloride 96 mmol/L (98-107); Glucose 118 mg/dL (74-99); Non-African American GFR(MDRD) >60 (>60 ml/min/1.73 sqM); Potassium 3.8 mmol/L (3.5-5.1); Sodium 133 mmol/L (137-145)
[2017-02-03] MEDS: PANTOPRAZOLE 40 MG TABLET PO SCH (08:15)
[2017-02-03] MEDS: hydrALAZINE HCL 25 MG TAB PO SCH (08:15)
[2017-02-03] MEDS: ATENOLOL 25 MG TAB PO SCH (08:17)
[2017-02-03] MEDS: AMIODARONE 200 MG TAB PO SCH ×2 (08:19→20:19)
[2017-02-03] MEDS: BUDESONIDE 0.5 MG/2 ML NEBU INHALATION SCH ×2 (08:43→19:34)
[2017-02-03] MEDS: IPRATROPIUM-ALBUTEROL 3 ML NEB INHALATION SCH ×4 (08:43→19:34)
--- NOTE | 2017-02-03 10:07 | P.PN ---
Subjective This is a 56-year-old female who is being evaluated and examined today on the sixth floor. Patient came into the emergency room originally with complaints of shortness of breath that had been increasing over the last few days. The patient was brought in by EMS and was given breathing treatments with minimal relief. Patient states that she feels her lungs are "gurgling". Patient does have a significant medical history for congestive heart failure, COPD, asthma, atrial fibrillation, renal insufficiency, and liver disease. The patient also noted to have some increased swelling of her lower extremities that has gotten worse over the last few days as well. Patient has no history of DVTs and takes Coumadin daily for her atrial fibrillation however she has not taken her Coumadin in the last 4 days. The patient does use home oxygen at all times in the form of 2 L via nasal cannula. When she came into the emergency room she was requiring oxygen of 6 L. Upon examination the patient's resting up in bed on 3 L of oxygen she complains of a congested cough, and is unable to bring up secretions. Objective - Vital Signs Vital signs: Vital Signs Temp 97.4 F L 02/03/17 08:00 Pulse 62 02/03/17 08:50 Resp 18 02/03/17 08:00 BP 96/54 02/03/17 08:00 Pulse Ox 100 02/03/17 08:00 Intake & Output 02/02/17 02/03/17 02/03/17 18:59 06:59 18:59 Intake Total 1543.953 651.029 180 Output Total 400 1600 Balance 1143.953 -948.971 180 Weight 52.5 kg 51.5 kg Intake: IV 616 0.9 320 Heparin Sodium,Porcine/ 296 D5w Pmx 25,000 unit In Dextrose/Water 1 500ml. bag @ 12 UNITS/KG/HR 14. 15 mls/hr IV .Q24H [facility] Rx #:[id number] Intake, IV Titration 127.953 171.029 Amount Heparin Sodium,Porcine/ 127.953 171.029 D5w Pmx 25,000 unit In Dextrose/Water 1 500ml. bag @ 12 UNITS/KG/HR 14. 15 mls/hr IV .Q24H [facility] Rx #:[id number] Oral 800 480 180 Output: Urine 400 1600 Uretheral ([place]) 1600 Other: Voiding Method Indwelling Catheter Indwelling Catheter - Exam GENERAL EXAM: Alert, active, comfortable in no apparent distress. HEAD: Normocephalic. EYES: Normal reaction of pupils, equal size. NOSE: Clear with pink turbinates. THROAT: No erythema or exudates. NECK: No masses, no JVD. CHEST: No chest wall deformity. LUNGS: Equal air entry with few scattered rhonchi, some expiratory wheezes CVS: S1 and S2 normal with no audible mumurs, regular rhythm. ABDOMEN: No hepatosplenomegaly, normal bowel sounds, no guarding or rigidity. EXTREMITIES: Trace edema noted, pedal pulses palpable. SKIN: No rashes CENTRAL NERVOUS SYSTEM: No focal deficits, tone is normal in all 4 extremities. - Labs CBC & Chem 7: 02/03/17 06:04 02/03/17 06:04 Labs: Abnormal Lab Results - Last 24 Hours (Table) 02/01/17 02/02/17 02/02/17 Range/Units 21:51 05:56 06:25 Hgb 8.1 L (11.4-16.0) gm/dL Hct 30.0 L (34.0-46.0) % MCV 72.5 L (80.0-100.0) fL MCH 19.6 L (25.0-35.0) pg MCHC 27.1 L (31.0-37.0) g/dL RDW 16.2 H (11.5-15.5) % Lymphocytes # (1.0-4.8) k/uL PT (9.0-12.0) sec APTT (22.0-30.0) sec Sodium (137-145) mmol/L Chloride (98-107) mmol/L Carbon Dioxide (22-30) mmol/L BUN (7-17) mg/dL Glucose (74-99) mg/dL POC Glucose (mg/dL) 179 H 125 H (75-99) mg/dL Calcium (8.4-10.2) mg/dL Total Protein (6.3-8.2) g/dL Albumin (3.5-5.0) g/dL 02/02/17 02/02/17 02/02/17 Range/Units 06:25 11:53 13:29 Hgb (11.4-16.0) gm/dL Hct (34.0-46.0) % MCV (80.0-100.0) fL MCH (25.0-35.0) pg MCHC (31.0-37.0) g/dL RDW (11.5-15.5) % Lymphocytes # (1.0-4.8) k/uL PT (9.0-12.0) sec APTT 38.5 H (22.0-30.0) sec Sodium 133 L (137-145) mmol/L Chloride (98-107) mmol/L Carbon Dioxide 32 H (22-30) mmol/L BUN 22 H (7-17) mg/dL Glucose 107 H (74-99) mg/dL POC Glucose (mg/dL) 255 H (75-99) mg/dL Calcium 8.0 L (8.4-10.2) mg/dL Total Protein 5.8 L (6.3-8.2) g/dL Albumin 2.3 L (3.5-5.0) g/dL 02/02/17 02/02/17 02/02/17 Range/Units 16:07 20:48 21:49 Hgb (11.4-16.0) gm/dL Hct (34.0-46.0) % MCV (80.0-100.0) fL MCH (25.0-35.0) pg MCHC (31.0-37.0) g/dL RDW (11.5-15.5) % Lymphocytes # (1.0-4.8) k/uL PT (9.0-12.0) sec APTT 78.3 H (22.0-30.0) sec Sodium (137-145) mmol/L Chloride (98-107) mmol/L Carbon Dioxide (22-30) mmol/L BUN (7-17) mg/dL Glucose (74-99) mg/dL POC Glucose (mg/dL) 226 H 199 H (75-99) mg/dL Calcium (8.4-10.2) mg/dL Total Protein (6.3-8.2) g/dL Albumin (3.5-5.0) g/dL 02/03/17 02/03/17 02/03/17 Range/Units 05:57 06:04 06:04 Hgb 8.0 L (11.4-16.0) gm/dL Hct 28.3 L (34.0-46.0) % MCV 71.2 L (80.0-100.0) fL MCH 20.2 L (25.0-35.0) pg MCHC 28.3 L (31.0-37.0) g/dL RDW 15.9 H (11.5-15.5) % Lymphocytes # 0.8 L (1.0-4.8) k/uL PT 15.3 H (9.0-12.0) sec APTT 62.4 H (22.0-30.0) sec Sodium (137-145) mmol/L Chloride (98-107) mmol/L Carbon Dioxide (22-30) mmol/L BUN (7-17) mg/dL Glucose (74-99) mg/dL POC Glucose (mg/dL) 137 H (75-99) mg/dL Calcium (8.4-10.2) mg/dL Total Protein (6.3-8.2) g/dL Albumin (3.5-5.0) g/dL 02/03/17 Range/Units 06:04 Hgb (11.4-16.0) gm/dL Hct (34.0-46.0) % MCV (80.0-100.0) fL MCH (25.0-35.0) pg MCHC (31.0-37.0) g/dL RDW (11.5-15.5) % Lymphocytes # (1.0-4.8) k/uL PT (9.0-12.0) sec APTT (22.0-30.0) sec Sodium 133 L (137-145) mmol/L Chloride 96 L (98-107) mmol/L Carbon Dioxide 33 H (22-30) mmol/L BUN 21 H (7-17) mg/dL Glucose 118 H (74-99) mg/dL POC Glucose (mg/dL) (75-99) mg/dL Calcium 7.7 L (8.4-10.2) mg/dL Total Protein (6.3-8.2) g/dL Albumin (3.5-5.0) g/dL Assessment and Plan Plan: Assessment Right-sided pneumonia suspected mixed, gram-negative in nature Acute exacerbation of chronic obstructive pulmonary disease Acute on chronic hypoxic respiratory failure Congestive heart failure, combined systolic and diastolic Anemia Atrial fibrillation Plan Medications have been reviewed and will be continued as ordered. IV steroids as well as budesonide inhalation continued. We will continue with nebulizer treatments, supplemental oxygen and pulmonary hygiene. Mucinex added to help with secretions. Incentive spirometer encouraged. Repeat Chest xray tomorrow. We will continue to monitor labs/results and adjust treatment as necessary. I performed an examination of the patient and discussed their management with the nurse practitioner. I have reviewed the nurse practitioner's note and agree with the documented findings and plan of care. [email or web address]
[2017-02-03] MEDS: guaiFENesin 600 MG TABLET.ER PO SCH ×2 (10:30→20:19)
[2017-02-03] MEDS: FUROSEMIDE 10 MG/ML 4 ML VIAL IV SCH (10:31)
[2017-02-03] MEDS: IPRATROPIUM-ALBUTEROL 3 ML NEB INHALATION PRN (10:55)
[2017-02-03 12:13] LABS: Glucose,Whole Blood 200 mg/dL (75-99)
[2017-02-03] MEDS: FERROUS SULFATE 325 MG TAB PO SCH (12:42)
--- NOTE | 2017-02-03 14:52 | PN ---
DATE OF SERVICE: 02/03/2017 This 56-year-old white female who was admitted with acute exacerbation of COPD and right middle and lower lobe pneumonia and acute on chronic congestive heart failure. Patient came with severe shortness of breath and general weakness. She was admitted and her heart is being monitored with telemetry. He was seen by Dr. Hinds in consultation and getting IV antibiotics and updraft treatments and IV Solu-Medrol. She was also seen by [facility] in consultation and she is being evaluated by antique finisher. She has been placed back on her previous medications and she also has anemia due to chronic blood loss and the patient has already has been started on ferrous sulfate and her hemoglobin today is 8.0 and also she has hyponatremia with his serum sodium of 133. She is getting IV fluids and IV Lasix and she has atrial fibrillation but it is in controlled ventricular rate. Vital signs are otherwise stable. Patient is just feeling slightly better today. Will continue current medications and the antique finisher and float phlebotomist following the patient. Prognosis is guarded.
--- NOTE | 2017-02-03 15:07 | P.PN ---
Subjective Principal diagnosis: Shortness of breath This is a 56-year-old female with known history of atrial fibrillation , severe mitral stenosis, COPD, renal failure, congestive heart failure admissions, who presented to the hospital with symptoms of severe shortness of breath with associated productive cough of green sputum. Patient also states she's been progressively more and more weak over time. Patient was in to [facility] for rehab. Currently receiving treatment for pneumonia and mild congestive cardiac failure. Weight is down 1 kg. Overall patient's feeling mildly better. We'll discontinue the IV Lasix today, we will then follow this patient with you on a when necessary basis, please don't hesitate to call with any questions Objective - Vital Signs Vital signs: Vital Signs Temp 97.4 F L 02/03/17 08:00 Pulse 62 02/03/17 14:14 Resp 18 02/03/17 12:00 BP 104/56 02/03/17 12:00 Pulse Ox 98 02/03/17 12:00 Intake & Output 02/02/17 02/03/17 02/03/17 18:59 06:59 18:59 Intake Total 1543.953 651.029 180 Output Total 400 1600 Balance 1143.953 -948.971 180 Weight 52.5 kg 51.5 kg Intake: IV 616 0.9 320 Heparin Sodium,Porcine/ 296 D5w Pmx 25,000 unit In Dextrose/Water 1 500ml. bag @ 12 UNITS/KG/HR 14. 15 mls/hr IV .Q24H [facility] Rx #:[id number] Intake, IV Titration 127.953 171.029 Amount Heparin Sodium,Porcine/ 127.953 171.029 D5w Pmx 25,000 unit In Dextrose/Water 1 500ml. bag @ 12 UNITS/KG/HR 14. 15 mls/hr IV .Q24H [facility] Rx #:[id number] Oral 800 480 180 Output: Urine 400 1600 Uretheral ([place]) 1600 Other: Voiding Method Indwelling Catheter Indwelling Catheter Indwelling Catheter - Exam PHYSICAL EXAMINATION: HEENT: Head is atraumatic, normocephalic. Pupils equal, round. Neck is supple. There is no elevated jugular venous pressure. HEART EXAMINATION: Heart S1 and S2 irregularly irregular, diastolic murmur is heard as well as systolic murmur. CHEST EXAMINATION: Lungs reveal decreased air exchange to bilateral bases with fine rales to the bases. ABDOMEN: Soft, nontender. Bowel sounds are heard. No organomegaly noted. EXTREMITIES: 2+ peripheral pulses with 1+ evidence of peripheral edema and no calf tenderness noted. NEUROLOGIC patient is awake, alert and oriented -3. . - Labs CBC & Chem 7: 02/03/17 06:04 02/03/17 06:04 Labs: Abnormal Lab Results - Last 24 Hours (Table) 02/02/17 02/02/17 02/02/17 Range/Units 16:07 20:48 21:49 Hgb (11.4-16.0) gm/dL Hct (34.0-46.0) % MCV (80.0-100.0) fL MCH (25.0-35.0) pg MCHC (31.0-37.0) g/dL RDW (11.5-15.5) % Lymphocytes # (1.0-4.8) k/uL PT (9.0-12.0) sec APTT 78.3 H (22.0-30.0) sec Sodium (137-145) mmol/L Chloride (98-107) mmol/L Carbon Dioxide (22-30) mmol/L BUN (7-17) mg/dL Glucose (74-99) mg/dL POC Glucose (mg/dL) 226 H 199 H (75-99) mg/dL Calcium (8.4-10.2) mg/dL 02/03/17 02/03/17 02/03/17 Range/Units 05:57 06:04 06:04 Hgb 8.0 L (11.4-16.0) gm/dL Hct 28.3 L (34.0-46.0) % MCV 71.2 L (80.0-100.0) fL MCH 20.2 L (25.0-35.0) pg MCHC 28.3 L (31.0-37.0) g/dL RDW 15.9 H (11.5-15.5) % Lymphocytes # 0.8 L (1.0-4.8) k/uL PT 15.3 H (9.0-12.0) sec APTT 62.4 H (22.0-30.0) sec Sodium (137-145) mmol/L Chloride (98-107) mmol/L Carbon Dioxide (22-30) mmol/L BUN (7-17) mg/dL Glucose (74-99) mg/dL POC Glucose (mg/dL) 137 H (75-99) mg/dL Calcium (8.4-10.2) mg/dL 02/03/17 02/03/17 Range/Units 06:04 12:03 Hgb (11.4-16.0) gm/dL Hct (34.0-46.0) % MCV (80.0-100.0) fL MCH (25.0-35.0) pg MCHC (31.0-37.0) g/dL RDW (11.5-15.5) % Lymphocytes # (1.0-4.8) k/uL PT (9.0-12.0) sec APTT (22.0-30.0) sec Sodium 133 L (137-145) mmol/L Chloride 96 L (98-107) mmol/L Carbon Dioxide 33 H (22-30) mmol/L BUN 21 H (7-17) mg/dL Glucose 118 H (74-99) mg/dL POC Glucose (mg/dL) 200 H (75-99) mg/dL Calcium 7.7 L (8.4-10.2) mg/dL Assessment and Plan Plan: Assessment and plan #1 symptoms of progressively worsening shortness of breath with productive green sputum. Evidence of pneumonia and heart failure on the chest x-ray. Patient is currently on IV antibiotics and IV Lasix. Echocardiogram with Doppler study performed in August revealed an ejection fraction of 55-60%. Severe mitral stenosis. #2 chronic persistent atrial fibrillation #3 COPD #4 history of prior valvuloplasty #5 anemia Plan We will discontinue the patient's IV Lasix and start her on oral diuretics. We will follow this patient with you now on an as-needed basis only, please don't hesitate to call with any questions. DNP note has been reviewed, I agree with a documented findings and plan of care. Patient was seen and examined.
[2017-02-03] MEDS: SODIUM POLYSTYRENE SULFONATE 15 GM/60 ML BOTTLE PO SCH (16:07)
[2017-02-03 17:05] LABS: Glucose,Whole Blood 209 mg/dL (75-99)
[2017-02-03] MEDS: FUROSEMIDE 40 MG TAB PO SCH (17:09)
[2017-02-03 20:19] LABS: Glucose,Whole Blood 177 mg/dL (75-99)
[2017-02-03] MEDS: WARFARIN 1.5 MG TAB PO SCH (20:20)
[2017-02-03] MEDS: LEVOFLOXACIN 750 MG TAB PO SCH (20:20)
[2017-02-03] MEDS: traZODone HCL 50 MG TAB PO SCH (20:20)
[2017-02-04] MEDS ORDERED: HYDROcodone/APAP 10-325MG 1 EACH TAB ONE (00:37)
[2017-02-04] MEDS ORDERED: methylPREDNISolone SOD SUCCI 40 MG/ML 1 ML VIAL ONE (00:37)
[2017-02-04] MEDS ORDERED: IPRATROPIUM-ALBUTEROL 3 ML NEB ONE (00:37)
[2017-02-04 05:39] LABS: Glucose,Whole Blood 171 mg/dL (75-99)
[2017-02-04] MEDS: HEPARIN SODIUM,PORCINE/D5W PMX 25,000 UNIT in DEXTROSE/WATER 1 500ML.BAG IV SCH (05:58)
[2017-02-04] MEDS: methylPREDNISolone SOD SUCCI 40 MG/ML 1 ML VIAL IV SCH ×4 (05:59→18:43)
[2017-02-04] MEDS: HYDROcodone/APAP 10-325MG 1 EACH TAB PO PRN ×4 (06:01→21:59)
[2017-02-04] MEDS: INSULIN LISPRO (humaLOG) 300 UNIT/3 ML VIAL SQ SCH ×4 (06:05→22:51)
[2017-02-04 06:59] LABS: INR 1.9 (<1.1); Prothrombin Time 18.2 sec (9.0-12.0)
[2017-02-04] MEDS: IPRATROPIUM-ALBUTEROL 3 ML NEB INHALATION SCH ×4 (08:12→19:30)
[2017-02-04] MEDS: BUDESONIDE 0.5 MG/2 ML NEBU INHALATION SCH ×2 (08:12→19:30)
[2017-02-04] MEDS: guaiFENesin 600 MG TABLET.ER PO SCH ×2 (08:23→20:16)
[2017-02-04] MEDS: FUROSEMIDE 40 MG TAB PO SCH ×2 (08:23→16:52)
[2017-02-04] MEDS: PANTOPRAZOLE 40 MG TABLET PO SCH (08:23)
[2017-02-04] MEDS: ATENOLOL 25 MG TAB PO SCH (08:23)
[2017-02-04] MEDS: AMIODARONE 200 MG TAB PO SCH ×2 (08:23→20:17)
--- NOTE | 2017-02-04 08:31 | XR ---
EXAMINATION TYPE: XR chest 2V DATE OF EXAM: 02/04/2017 6:27 AM COMPARISON: Prior chest x-ray 01 February 2017 HISTORY: Pneumonia TECHNIQUE: Frontal and lateral views of the chest are obtained. FINDINGS: Interstitium is increased. There is bibasilar increased density, the heart is enlarged. Pr ominence of pulmonary artery could be indicative of pulmonary artery hypertension. No pneumothorax. B lunting of the costophrenic angles is noted. IMPRESSION: Correlate for congestive heart failure, pneumonia not excluded. There are associated eff usions. Additional findings above. Follow-up recommended.
--- NOTE | 2017-02-04 09:37 | P.PN ---
Subjective This is a 56-year-old female who is being evaluated and examined today on the sixth floor. Patient came into the emergency room originally with complaints of shortness of breath that had been increasing over the last few days. The patient was brought in by EMS and was given breathing treatments with minimal relief. Patient states that she feels her lungs are "gurgling". Patient does have a significant medical history for congestive heart failure, COPD, asthma, atrial fibrillation, renal insufficiency, and liver disease. The patient also noted to have some increased swelling of her lower extremities that has gotten worse over the last few days as well. Patient has no history of DVTs and takes Coumadin daily for her atrial fibrillation however she has not taken her Coumadin in the last 4 days. The patient does use home oxygen at all times in the form of 2 L via nasal cannula. When she came into the emergency room she was requiring oxygen of 6 L. Upon examination the patient's resting up in bed on 4 L of oxygen she complains of a congested cough, and is unable to bring up secretions. At home she wears 2LPM of oxygen. Objective - Vital Signs Vital signs: Vital Signs Temp 96.1 F L 02/04/17 08:00 Pulse 60 02/04/17 08:40 Resp 18 02/04/17 08:00 BP 106/55 02/04/17 08:00 Pulse Ox 98 02/04/17 08:00 Intake & Output 02/03/17 02/04/17 02/04/17 18:59 06:59 18:59 Intake Total 180 960 Output Total 550 800 Balance -370 160 Weight 53 kg Intake: IV 100 Levofloxacin 750Mg-D5w 100 Pmx 750 mg In Dextrose/ Water 1 150ml.bag @ 100 mls/hr IVPB Q24H [facility] Rx#: [id number] Intake, IV Titration 500 Amount Heparin Sodium,Porcine/ 500 D5w Pmx 25,000 unit In Dextrose/Water 1 500ml. bag @ 12 UNITS/KG/HR 14. 15 mls/hr IV .Q24H [facility] Rx #:[id number] Oral 180 360 Output: Urine 550 800 Other: Voiding Method Indwelling Catheter Indwelling Catheter Indwelling Catheter - Exam GENERAL EXAM: Alert, active, comfortable in no apparent distress. HEAD: Normocephalic. EYES: Normal reaction of pupils, equal size. NOSE: Clear with pink turbinates. THROAT: No erythema or exudates. NECK: No masses, no JVD. CHEST: No chest wall deformity. LUNGS: Equal air entry with scattered rhonchi, some expiratory wheezes. CVS: S1 and S2 heard with audible mumurs, ABDOMEN: No hepatosplenomegaly, normal bowel sounds, no guarding or rigidity. EXTREMITIES: Trace edema noted, pedal pulses palpable. SKIN: No rashes CENTRAL NERVOUS SYSTEM: No focal deficits, tone is normal in all 4 extremities. - Labs CBC & Chem 7: 02/03/17 06:04 02/03/17 06:04 Labs: Abnormal Lab Results - Last 24 Hours (Table) 02/03/17 02/03/17 02/03/17 Range/Units 12:03 17:03 20:18 PT (9.0-12.0) sec APTT (22.0-30.0) sec POC Glucose (mg/dL) 200 H 209 H 177 H (75-99) mg/dL 02/04/17 02/04/17 Range/Units 05:38 06:33 PT 18.2 H (9.0-12.0) sec APTT 70.0 H (22.0-30.0) sec POC Glucose (mg/dL) 171 H (75-99) mg/dL Assessment and Plan Plan: Assessment Right-sided pneumonia suspected mixed, gram-negative in nature Acute exacerbation of chronic obstructive pulmonary disease Acute on chronic hypoxic respiratory failure Congestive heart failure, combined systolic and diastolic Anemia Atrial fibrillation Plan Medications have been reviewed and will be continued as ordered. We will continue with nebulizer treatments, supplemental oxygen and pulmonary hygiene. Mucinex added to help with secretions. Incentive spirometer encouraged. We will continue to monitor labs/results and adjust treatment as necessary. I performed an examination of the patient and discussed their management with the nurse practitioner. I have reviewed the nurse practitioner's note and agree with the documented findings and plan of care. rachelle
[2017-02-04 10:20] LABS: Basophils % (A) 0 %; CH 20.3; CHCM 28.9; Eosinophils % (A) 0 %; HDW 3.29; HGB 8.7 gm/dL (11.4-16.0); Hypochromasia Marked; Luc # (Auto) 0.08; Luc % (Auto) 1; Lymphocytes # (A) 0.8 k/uL (1.0-4.8); Lymphocytes % (A) 8 %; MCH 20.6 pg (25.0-35.0); MCV 70.9 fL (80.0-100.0); Mean Platelet Volume 7.7; Microcytosis Moderate; Monocytes # (A) 0.3 k/uL (0-1.0); Monocytes % (A) 3 %; Neutrophils # (A) 8.7 k/uL (1.3-7.7); Neutrophils % (A) 89 %; RBC 4.23 m/uL (3.80-5.40); RDW 15.9 % (11.5-15.5); WBC 9.9 k/uL (3.8-10.6); WBC (Perox) 10.29
[2017-02-04 10:23] LABS: ALT 34 U/L (9-52); AST 21 U/L (14-36); Alkaline Phosphatase 101 U/L (38-126); Anion Gap 6 mmol/L; Blood Urea Nitrogen 24 mg/dL (7-17); Calcium 7.7 mg/dL (8.4-10.2); Carbon Dioxide 31 mmol/L (22-30); Chloride 96 mmol/L (98-107); Glucose 130 mg/dL (74-99); Magnesium 1.8 mg/dL (1.6-2.3); Non-African American GFR(MDRD) >60 (>60 ml/min/1.73 sqM); Potassium 3.7 mmol/L (3.5-5.1); Sodium 133 mmol/L (137-145); Total Bilirubin 0.5 mg/dL (0.2-1.3); Total Protein 5.9 g/dL (6.3-8.2)
[2017-02-04 10:24] LABS: MCHC 29.1 g/dL (31.0-37.0)
[2017-02-04] MEDS ORDERED: FUROSEMIDE 10 MG/ML 2 ML VIAL IV ONE (11:00)
[2017-02-04 11:47] LABS: Glucose,Whole Blood 184 mg/dL (75-99)
[2017-02-04] MEDS: FERROUS SULFATE 325 MG TAB PO SCH ×2 (11:48→11:49)
--- NOTE | 2017-02-04 11:51 | PN ---
DATE OF SERVICE: 02/04/2017 This 56-year-old white female who has very advanced mitral stenosis with chronic atrial fibrillation and chronic congestive heart failure and she also has chronic obstructive pulmonary disease. The patient was brought to the emergency room because of increasing shortness of breath and general weakness and patient was found to have right lobe pneumonia with pleural effusion and also she had congestive heart failure. The patient was admitted to the hospital for further wall and treatment and patient was started on IV antibiotics, updraft treatment and IV Solu-Medrol and patient was seen by Dr. Segun Hinds in consultation. The patient was also seen by [facility] in consultation. The patient is going to have an echocardiogram. Patient has been placed back on her previous home medications. Patient has severe anemia. Her hemoglobin 8.0 and the patient has been placed on ferrous sulfate. Today her chest x-ray shows slight increase in the right basilar infiltrate and also lungs seem to be more congested. Otherwise, her vital signs are stable. Patient is still extremely weak and using nasal oxygen constantly. However, she is getting Lasix 40 mg IV b.i.d. We will give an extra dose of Lasix 20 mg IV today. Otherwise, we will continue current treatments and upsetter setter up and manager oncology also following the patient. Prognosis is guarded.
--- NOTE | 2017-02-04 15:44 | FL ---
Modified barium swallow. HISTORY: Dysphagia. Modified barium swallow was performed with the department of speech pathology. The patient was prese nted with various consistencies of barium. There is no evidence for aspiration. There is a deep vein transient penetration with thin and nectar thick barium which improved upon chin tuck. Full report is to follow from the department of speech pa thology. Impression: Penetration as discussed.
[2017-02-04 16:39] LABS: Glucose,Whole Blood 163 mg/dL (75-99)
[2017-02-04] MEDS: ALPRAZolam 0.25 MG TAB PO PRN (16:52)
[2017-02-04] MEDS: SODIUM POLYSTYRENE SULFONATE 15 GM/60 ML BOTTLE PO SCH (16:52)
[2017-02-04] MEDS: traZODone HCL 50 MG TAB PO SCH (20:15)
[2017-02-04] MEDS: LEVOFLOXACIN 750 MG TAB PO SCH (20:16)
[2017-02-04] MEDS: WARFARIN 1.5 MG TAB PO SCH (20:16)
[2017-02-04 20:59] LABS: Glucose,Whole Blood 234 mg/dL (75-99)
[2017-02-05] MEDS: HEPARIN SODIUM,PORCINE/D5W PMX 25,000 UNIT in DEXTROSE/WATER 1 500ML.BAG IV SCH ×2 (00:15→23:17)
[2017-02-05] MEDS: ALPRAZolam 0.25 MG TAB PO PRN ×2 (00:16→17:31)
[2017-02-05] MEDS: methylPREDNISolone SOD SUCCI 40 MG/ML 1 ML VIAL IV SCH ×5 (00:16→23:13)
[2017-02-05] MEDS: HYDROcodone/APAP 10-325MG 1 EACH TAB PO PRN ×4 (04:30→20:08)
[2017-02-05 05:57] LABS: Glucose,Whole Blood 167 mg/dL (75-99)
[2017-02-05] MEDS: INSULIN LISPRO (humaLOG) 300 UNIT/3 ML VIAL SQ SCH ×4 (06:43→21:53)
[2017-02-05 06:47] LABS: INR 2.2 (<1.1); Prothrombin Time 20.7 sec (9.0-12.0)
[2017-02-05] MEDS: ATENOLOL 25 MG TAB PO SCH (08:37)
[2017-02-05] MEDS: guaiFENesin 600 MG TABLET.ER PO SCH ×2 (08:37→20:10)
[2017-02-05] MEDS: AMIODARONE 200 MG TAB PO SCH ×2 (08:37→20:10)
[2017-02-05] MEDS: FUROSEMIDE 40 MG TAB PO SCH ×2 (08:37→17:16)
[2017-02-05] MEDS: PANTOPRAZOLE 40 MG TABLET PO SCH (08:37)
[2017-02-05] MEDS: IPRATROPIUM-ALBUTEROL 3 ML NEB INHALATION SCH ×4 (09:26→20:00)
[2017-02-05] MEDS: BUDESONIDE 0.5 MG/2 ML NEBU INHALATION SCH ×2 (09:26→20:00)
[2017-02-05] MEDS ORDERED: FUROSEMIDE 10 MG/ML 2 ML VIAL IV ONE (11:34)
[2017-02-05 11:49] LABS: Glucose,Whole Blood 149 mg/dL (75-99)
--- NOTE | 2017-02-05 14:12 | PN ---
DATE OF SERVICE: 02/05/2017 This 56-year-old white female who was admitted with pneumonia, COPD with acute exacerbation, chronic atrial fibrillation, congestive heart failure, diabetes mellitus and anemia. The patient was seen by Dr. Segun Hinds and also [facility] consultation. Patient is receiving IV antibiotics, updraft treatments and IV Solu-Medrol and also she has been placed back on her previous medications. Recent chest x-ray showed pneumonia and congestive heart failure. She has been receiving IV Lasix 40 mg b.i.d. She has received an extra dose of 20 mg Lasix IV yesterday and patient is feeling slightly better. Will give her another extra dose of IV Lasix today. Overall her prognosis is guarded. Vital signs are stable. She is still extremely short of breath. Her oral intake is improving. Heart is in atrial fibrillation with a controlled ventricular rate. She has been placed on ferrous sulfate and we will monitor her CBC and electrolyte. We will continue current medications. Prognosis is guarded.
--- NOTE | 2017-02-05 16:05 | P.PN ---
Subjective This is a 56-year-old female who is being evaluated and examined today on the sixth floor. Patient came into the emergency room originally with complaints of shortness of breath that had been increasing over the last few days. The patient was brought in by EMS and was given breathing treatments with minimal relief. Patient states that she feels her lungs are "gurgling". Patient does have a significant medical history for congestive heart failure, COPD, asthma, atrial fibrillation, renal insufficiency, and liver disease. The patient also noted to have some increased swelling of her lower extremities that has gotten worse over the last few days as well. Patient has no history of DVTs and takes Coumadin daily for her atrial fibrillation however she has not taken her Coumadin in the last 4 days. The patient does use home oxygen at all times in the form of 2 L via nasal cannula. When she came into the emergency room she was requiring oxygen of 6 L. Upon examination the patient's resting up in bed on 4 L of oxygen she complains of a congested cough, and is unable to bring up secretions. Continues with shortness of breath with exertion and extensive conversation. At home she wears 2LPM of oxygen. Objective - Vital Signs Vital signs: Vital Signs Temp 97.2 F L 02/05/17 12:00 Pulse 64 02/05/17 14:34 Resp 18 02/05/17 12:00 BP 129/68 02/05/17 12:00 Pulse Ox 97 02/05/17 04:00 Intake & Output 02/04/17 02/05/17 02/05/17 18:59 06:59 18:59 Intake Total 360 229.515 1312.83 Output Total 675 1050 800 Balance -315 -276.568 283.83 Weight 53 kg 45.5 kg Intake: IV 90 0.9 90 Intake, IV Titration 323.432 123.83 Amount Heparin Sodium,Porcine/ 323.432 123.83 D5w Pmx 25,000 unit In Dextrose/Water 1 500ml. bag @ 12 UNITS/KG/HR 14. 15 mls/hr IV .Q24H [facility] Rx #:[id number] Oral 360 360 960 Output: Urine 675 1050 800 Other: Voiding Method Indwelling Catheter Indwelling Catheter Indwelling Catheter # Voids 1 - Exam GENERAL EXAM: Alert, active, comfortable in no apparent distress. HEAD: Normocephalic. EYES: Normal reaction of pupils, equal size. NOSE: Clear with pink turbinates. THROAT: No erythema or exudates. NECK: No masses, no JVD. CHEST: No chest wall deformity. LUNGS: Equal air entry with scattered rhonchi, some expiratory wheezes. CVS: S1 and S2 heard with audible mumurs, ABDOMEN: No hepatosplenomegaly, normal bowel sounds, no guarding or rigidity. EXTREMITIES: Trace edema noted, pedal pulses palpable. SKIN: No rashes CENTRAL NERVOUS SYSTEM: No focal deficits, tone is normal in all 4 extremities. - Labs CBC & Chem 7: 02/04/17 06:33 02/04/17 06:33 Labs: Abnormal Lab Results - Last 24 Hours (Table) 02/04/17 02/04/17 02/05/17 Range/Units 16:37 20:56 05:54 PT (9.0-12.0) sec APTT (22.0-30.0) sec POC Glucose (mg/dL) 163 H 234 H 167 H (75-99) mg/dL 02/05/17 02/05/17 02/05/17 Range/Units 06:13 06:13 11:24 PT 20.7 H (9.0-12.0) sec APTT 74.0 H (22.0-30.0) sec POC Glucose (mg/dL) 149 H (75-99) mg/dL Microbiology - Last 24 Hours (Table) 02/04/17 12:18 Gram Stain - Preliminary Sputum Sputum Culture - Preliminary Assessment and Plan Plan: Assessment Right-sided pneumonia suspected mixed, gram-negative in nature Acute exacerbation of chronic obstructive pulmonary disease Acute on chronic hypoxic respiratory failure Congestive heart failure, combined systolic and diastolic Anemia Atrial fibrillation Plan Medications have been reviewed and will be continued as ordered. We will continue with nebulizer treatments, supplemental oxygen and pulmonary hygiene. Mucinex added to help with secretions. Incentive spirometer encouraged. We will continue to monitor labs/results and adjust treatment as necessary. I performed an examination of the patient and discussed their management with the nurse practitioner. I have reviewed the nurse practitioner's note and agree with the documented findings and plan of care. [email or web address]
[2017-02-05 16:39] LABS: Glucose,Whole Blood 170 mg/dL (75-99)
[2017-02-05] MEDS: SODIUM POLYSTYRENE SULFONATE 15 GM/60 ML BOTTLE PO SCH (17:17)
[2017-02-05] MEDS: LEVOFLOXACIN 750 MG TAB PO SCH (20:10)
[2017-02-05] MEDS: WARFARIN 1.5 MG TAB PO SCH (20:10)
[2017-02-05] MEDS: traZODone HCL 50 MG TAB PO SCH (20:10)
[2017-02-05] MEDS: HYDROmorphone 1 MG/ML 1 ML SYRINGE IVP PRN (23:07)
[2017-02-06] MEDS: HYDROmorphone 1 MG/ML 1 ML SYRINGE IVP PRN ×5 (03:38→20:12)
[2017-02-06 06:09] LABS: CH 20.3; CHCM 28.8; HCT 29.7 % (34.0-46.0); HDW 3.18; HGB 8.3 gm/dL (11.4-16.0); Hypochromasia Marked; MCH 19.8 pg (25.0-35.0); MCV 70.9 fL (80.0-100.0); Microcytosis Moderate; RBC 4.19 m/uL (3.80-5.40); RDW 15.9 % (11.5-15.5); WBC 9.6 k/uL (3.8-10.6)
[2017-02-06] MEDS: methylPREDNISolone SOD SUCCI 40 MG/ML 1 ML VIAL IV SCH ×3 (06:14→17:00)
[2017-02-06] MEDS: INSULIN LISPRO (humaLOG) 300 UNIT/3 ML VIAL SQ SCH ×4 (06:14→21:04)
[2017-02-06 06:25] LABS: Blood Urea Nitrogen 30 mg/dL (7-17); Calcium 7.1 mg/dL (8.4-10.2); Chloride 90 mmol/L (98-107); Glucose 127 mg/dL (74-99); Non-African American GFR(MDRD) >60 (>60 ml/min/1.73 sqM); Sodium 136 mmol/L (137-145)
[2017-02-06] MEDS: BUDESONIDE 0.5 MG/2 ML NEBU INHALATION SCH ×2 (06:41→20:53)
[2017-02-06] MEDS: IPRATROPIUM-ALBUTEROL 3 ML NEB INHALATION SCH ×4 (06:41→20:54)
[2017-02-06 06:52] LABS: Potassium 2.7 mmol/L (3.5-5.1)
[2017-02-06 06:53] LABS: Anion Gap 5 mmol/L; Carbon Dioxide 41 mmol/L (22-30)
[2017-02-06] MEDS ORDERED: Potassium Replacement Protocol 1 EACH MISC MISCELLANE PRN (07:05)
[2017-02-06] MEDS ORDERED: Magnesium Replacement Protocol 1 EACH MISC MISCELLANE PRN (07:08)
[2017-02-06 07:57] LABS: INR 2.2 (<1.1); Prothrombin Time 21.4 sec (9.0-12.0)
[2017-02-06] MEDS: POTASSIUM CHLORIDE ER 20 MEQ TAB.ER PO SCH ×5 (07:57→21:04)
[2017-02-06] MEDS: ATENOLOL 25 MG TAB PO SCH (07:58)
[2017-02-06] MEDS: AMIODARONE 200 MG TAB PO SCH ×2 (07:58→21:03)
[2017-02-06] MEDS: PANTOPRAZOLE 40 MG TABLET PO SCH (07:58)
[2017-02-06] MEDS: FUROSEMIDE 40 MG TAB PO SCH ×2 (07:58→16:06)
[2017-02-06] MEDS: guaiFENesin 600 MG TABLET.ER PO SCH ×2 (07:58→21:03)
--- NOTE | 2017-02-06 09:42 | P.PN ---
Subjective This is dictation on the progress note date of service 02/06/2017, dictated by Dr. Michelet Wiggins [facility] in the temporary absence of Dr. Raimundo combs [facility]. Patient seen and evaluated [id number] and discussed with current problem. She complained that she had still constipation, will be started her on MiraLAX once a day resulted in water or juice. Her pain is much controlled at this time. She has been coughing and bringing up sputum discolored yellow or green, her lost sputum test was on the 14 which showed yeast and normal leah we will be repeating the sputum test again for clarification of the issue of the yeast and the possibility of the need to use Diflucan if's become extensive. Her vital signs stable, today she is comfortable, she is very pale, underlying anemia, will be ordered anemia workup with iron evaluation to clarify the need of iron supplementation by mouth and IV. On the physical examination: Patient is conscious alert oriented 3 no acute respiratory distress except she is coughing bringing up phlegm. HEENT: Negative Neck was supple no JVD no thyromegaly no lymphadenopathy trachea midline. Chest: She is increased anteroposterior diameter with the underlying history of COPD. She had scattered rhonchi's on the chest. Heart: Irregular irregularity was underlying history of atrial fibrillation and she is on anticoagulation with Coumadin she is therapeutic at this time will discontinue the heparin. Abdomen: Soft positive bowel sounds and she stated that she had constipation. No organomegaly enlargement. Extremities she has a stasis dermatitis on the lower extremities and positive pulses no edema. Assessment: #1 pain is controlled #2 anemia ruling out iron deficiency versus vitamin B12 and folic acid. #3 Atrovent fibrillation on anticoagulation. #4 tracheobronchitis, #5 pneumonia #6 congestive heart failure #7 electrolyte imbalance with hypokalemia and questionable hypomagnesemia. Plan: #1 obtaining workup for iron deficiency as well as vitamin D 12 and folic acid activities #2 obtain PT and INR daily basis. Sputum for culture and sensitivity. Dr. Eubanks will be following the patient tomorrow. Objective - Vital Signs Vital signs: Vital Signs Temp 97.0 F L 02/06/17 08:00 Pulse 66 02/06/17 08:00 Resp 18 02/06/17 08:00 BP 108/55 02/06/17 08:00 Pulse Ox 96 02/06/17 08:00 Intake & Output 02/05/17 02/06/17 02/06/17 18:59 06:59 18:59 Intake Total 1183.83 1403.63 600 Output Total 800 4800 225 Balance 383.83 -3396.37 375 Weight 45 kg Intake: IV 280 0.9 280 Intake, IV Titration 123.83 283.63 Amount Heparin Sodium,Porcine/ 123.83 283.63 D5w Pmx 25,000 unit In Dextrose/Water 1 500ml. bag @ 12 UNITS/KG/HR 14. 15 mls/hr IV .Q24H [facility] Rx #:[id number] Oral 1060 840 600 Output: Urine 800 4800 225 Uretheral ([place]) 225 Other: Voiding Method Indwelling Catheter Indwelling Catheter Indwelling Catheter - Labs CBC & Chem 7: 02/06/17 05:51 02/06/17 05:51 Labs: Abnormal Lab Results - Last 24 Hours (Table) 02/05/17 02/05/17 02/06/17 Range/Units 11:24 16:36 05:51 Hgb 8.3 L (11.4-16.0) gm/dL Hct 29.7 L (34.0-46.0) % MCV 70.9 L (80.0-100.0) fL MCH 19.8 L (25.0-35.0) pg MCHC 28.0 L (31.0-37.0) g/dL RDW 15.9 H (11.5-15.5) % PT (9.0-12.0) sec APTT (22.0-30.0) sec Sodium (137-145) mmol/L Potassium (3.5-5.1) mmol/L Chloride (98-107) mmol/L Carbon Dioxide (22-30) mmol/L BUN (7-17) mg/dL Glucose (74-99) mg/dL POC Glucose (mg/dL) 149 H 170 H (75-99) mg/dL Calcium (8.4-10.2) mg/dL 02/06/17 02/06/17 02/06/17 Range/Units 05:51 05:51 05:51 Hgb (11.4-16.0) gm/dL Hct (34.0-46.0) % MCV (80.0-100.0) fL MCH (25.0-35.0) pg MCHC (31.0-37.0) g/dL RDW (11.5-15.5) % PT 21.4 H (9.0-12.0) sec APTT 91.7 H (22.0-30.0) sec Sodium 136 L (137-145) mmol/L Potassium 2.7 L* (3.5-5.1) mmol/L Chloride 90 L (98-107) mmol/L Carbon Dioxide 41 H* (22-30) mmol/L BUN 30 H (7-17) mg/dL Glucose 127 H (74-99) mg/dL POC Glucose (mg/dL) (75-99) mg/dL Calcium 7.1 L (8.4-10.2) mg/dL Microbiology - Last 24 Hours (Table) 02/04/17 12:18 Gram Stain - Preliminary Sputum Sputum Culture - Preliminary
[2017-02-06 11:12] LABS: Glucose,Whole Blood 191 mg/dL (75-99)
[2017-02-06 11:51] LABS: % Iron Saturation 57.6 % (20-50)
[2017-02-06] MEDS: FERROUS SULFATE 325 MG TAB PO SCH (12:05)
[2017-02-06] MEDS: POLYETHYLENE GLYCOL 3350 17 GM POWD.PACK PO SCH (12:06)
--- NOTE | 2017-02-06 13:22 | P.PN ---
Subjective This is a 56-year-old female who is being evaluated and examined today on the sixth floor. Patient came into the emergency room originally with complaints of shortness of breath that had been increasing over the last few days. The patient was brought in by EMS and was given breathing treatments with minimal relief. Patient states that she feels her lungs are "gurgling". Patient does have a significant medical history for congestive heart failure, COPD, asthma, atrial fibrillation, renal insufficiency, and liver disease. The patient also noted to have some increased swelling of her lower extremities that has gotten worse over the last few days as well. Patient has no history of DVTs and takes Coumadin daily for her atrial fibrillation however she has not taken her Coumadin in the last 4 days. The patient does use home oxygen at all times in the form of 2 L via nasal cannula. When she came into the emergency room she was requiring oxygen of 6 L. Upon examination the patient's resting up in bed on 4 L of oxygen she complains of a congested cough. Continues with shortness of breath with exertion and extensive conversation. At home she wears 2LPM of oxygen. Today she states she is feeling a little better. Today she is hypokalemic and will be replaced per protocol. Objective - Vital Signs Vital signs: Vital Signs Temp 96.7 F L 02/06/17 11:33 Pulse 67 02/06/17 11:34 Resp 16 02/06/17 11:34 BP 116/55 02/06/17 11:33 Pulse Ox 95 02/06/17 11:33 Intake & Output 02/05/17 02/06/17 02/06/17 18:59 06:59 18:59 Intake Total 1183.83 1403.63 840 Output Total 800 4800 225 Balance 383.83 -3396.37 615 Weight 45 kg Intake: IV 280 0.9 280 Intake, IV Titration 123.83 283.63 Amount Heparin Sodium,Porcine/ 123.83 283.63 D5w Pmx 25,000 unit In Dextrose/Water 1 500ml. bag @ 12 UNITS/KG/HR 14. 15 mls/hr IV .Q24H [facility] Rx #:[id number] Oral 1060 840 840 Output: Urine 800 4800 225 Uretheral ([place]) 225 Other: Voiding Method Indwelling Catheter Indwelling Catheter Indwelling Catheter - Exam GENERAL EXAM: Alert, active, comfortable in no apparent distress. HEAD: Normocephalic. EYES: Normal reaction of pupils, equal size. NOSE: Clear with pink turbinates. THROAT: No erythema or exudates. NECK: No masses, no JVD. CHEST: No chest wall deformity. LUNGS: Equal air entry with scattered rhonchi, some expiratory wheezes. CVS: S1 and S2 heard with audible mumurs, ABDOMEN: No hepatosplenomegaly, normal bowel sounds, no guarding or rigidity. EXTREMITIES: Trace edema noted, pedal pulses palpable. SKIN: No rashes CENTRAL NERVOUS SYSTEM: No focal deficits, tone is normal in all 4 extremities. - Labs CBC & Chem 7: 02/06/17 05:51 02/06/17 05:51 Labs: Abnormal Lab Results - Last 24 Hours (Table) 02/05/17 02/06/17 02/06/17 Range/Units 16:36 05:51 05:51 Hgb 8.3 L (11.4-16.0) gm/dL Hct 29.7 L (34.0-46.0) % MCV 70.9 L (80.0-100.0) fL MCH 19.8 L (25.0-35.0) pg MCHC 28.0 L (31.0-37.0) g/dL RDW 15.9 H (11.5-15.5) % PT (9.0-12.0) sec APTT (22.0-30.0) sec Sodium 136 L (137-145) mmol/L Potassium 2.7 L* (3.5-5.1) mmol/L Chloride 90 L (98-107) mmol/L Carbon Dioxide 41 H* (22-30) mmol/L BUN 30 H (7-17) mg/dL Glucose 127 H (74-99) mg/dL POC Glucose (mg/dL) 170 H (75-99) mg/dL Calcium 7.1 L (8.4-10.2) mg/dL TIBC (265-497) ug/dL % Saturation (20-50) % Ferritin (11-264) ng/mL 02/06/17 02/06/17 02/06/17 Range/Units 05:51 05:51 05:51 Hgb (11.4-16.0) gm/dL Hct (34.0-46.0) % MCV (80.0-100.0) fL MCH (25.0-35.0) pg MCHC (31.0-37.0) g/dL RDW (11.5-15.5) % PT 21.4 H (9.0-12.0) sec APTT 91.7 H (22.0-30.0) sec Sodium (137-145) mmol/L Potassium (3.5-5.1) mmol/L Chloride (98-107) mmol/L Carbon Dioxide (22-30) mmol/L BUN (7-17) mg/dL Glucose (74-99) mg/dL POC Glucose (mg/dL) (75-99) mg/dL Calcium (8.4-10.2) mg/dL TIBC 210 L (265-497) ug/dL % Saturation 57.6 H (20-50) % Ferritin 851 H (11-264) ng/mL 02/06/17 Range/Units 11:10 Hgb (11.4-16.0) gm/dL Hct (34.0-46.0) % MCV (80.0-100.0) fL MCH (25.0-35.0) pg MCHC (31.0-37.0) g/dL RDW (11.5-15.5) % PT (9.0-12.0) sec APTT (22.0-30.0) sec Sodium (137-145) mmol/L Potassium (3.5-5.1) mmol/L Chloride (98-107) mmol/L Carbon Dioxide (22-30) mmol/L BUN (7-17) mg/dL Glucose (74-99) mg/dL POC Glucose (mg/dL) 191 H (75-99) mg/dL Calcium (8.4-10.2) mg/dL TIBC (265-497) ug/dL % Saturation (20-50) % Ferritin (11-264) ng/mL Microbiology - Last 24 Hours (Table) 02/04/17 12:18 Gram Stain - Final Sputum Sputum Culture - Final Areli albicans Assessment and Plan Plan: Assessment Right-sided pneumonia suspected mixed, gram-negative in nature Acute exacerbation of chronic obstructive pulmonary disease Acute on chronic hypoxic respiratory failure Congestive heart failure, combined systolic and diastolic Anemia Atrial fibrillation Hypokalemia Plan Medications have been reviewed and will be continued as ordered. We will continue with nebulizer treatments, supplemental oxygen and pulmonary hygiene. Mucinex added to help with secretions. Incentive spirometer encouraged. Potassium replacement per protocol. We will continue to monitor labs/results and adjust treatment as necessary. I performed an examination of the patient and discussed their management with the nurse practitioner. I have reviewed the nurse practitioner's note and agree with the documented findings and plan of care. [email or web address]
[2017-02-06] MEDS: IPRATROPIUM-ALBUTEROL 3 ML NEB INHALATION PRN (13:23)
[2017-02-06] MEDS: ALPRAZolam 0.25 MG TAB PO PRN (13:51)
[2017-02-06 16:48] LABS: Glucose,Whole Blood 146 mg/dL (75-99)
[2017-02-06] MEDS: HYDROcodone/APAP 10-325MG 1 EACH TAB PO PRN (20:22)
[2017-02-06 20:55] LABS: Glucose,Whole Blood 242 mg/dL (75-99)
[2017-02-06] MEDS: LEVOFLOXACIN 750 MG TAB PO SCH (21:03)
[2017-02-06] MEDS: WARFARIN 1.5 MG TAB PO SCH (21:04)
[2017-02-07] MEDS: HYDROcodone/APAP 10-325MG 1 EACH TAB PO PRN ×6 (00:09→21:55)
[2017-02-07] MEDS: HYDROmorphone 1 MG/ML 1 ML SYRINGE IVP PRN ×6 (00:09→21:55)
[2017-02-07] MEDS: methylPREDNISolone SOD SUCCI 40 MG/ML 1 ML VIAL IV SCH ×5 (00:09→22:01)
[2017-02-07] MEDS: traZODone HCL 50 MG TAB PO SCH ×2 (01:43→21:56)
[2017-02-07 06:26] LABS: INR 1.9 (<1.1); Prothrombin Time 18.8 sec (9.0-12.0)
[2017-02-07 06:30] LABS: Anion Gap 7 mmol/L; Blood Urea Nitrogen 32 mg/dL (7-17); Calcium 7.2 mg/dL (8.4-10.2); Chloride 90 mmol/L (98-107); Glucose 147 mg/dL (74-99); Magnesium 1.4 mg/dL (1.6-2.3); Non-African American GFR(MDRD) >60 (>60 ml/min/1.73 sqM); Potassium 3.8 mmol/L (3.5-5.1); Sodium 137 mmol/L (137-145)
[2017-02-07 06:35] LABS: Carbon Dioxide 40 mmol/L (22-30)
[2017-02-07] MEDS: INSULIN LISPRO (humaLOG) 300 UNIT/3 ML VIAL SQ SCH ×4 (06:40→22:02)
[2017-02-07] MEDS: MAGNESIUM SULFATE-D5W PMX 1 GM in DEXTROSE/WATER 1 100ML.BAG IVPB SCH ×3 (07:01→17:11)
[2017-02-07 07:36] LABS: Glucose,Whole Blood 146 mg/dL (75-99)
[2017-02-07 07:36] LABS: Glucose,Whole Blood 222 mg/dL (75-99)
[2017-02-07 07:36] LABS: Glucose,Whole Blood 163 mg/dL (75-99)
[2017-02-07] MEDS: IPRATROPIUM-ALBUTEROL 3 ML NEB INHALATION SCH ×4 (08:51→20:40)
[2017-02-07] MEDS: BUDESONIDE 0.5 MG/2 ML NEBU INHALATION SCH ×2 (08:51→20:40)
[2017-02-07] MEDS: POLYETHYLENE GLYCOL 3350 17 GM POWD.PACK PO SCH (08:52)
[2017-02-07] MEDS: guaiFENesin 600 MG TABLET.ER PO SCH ×2 (08:53→21:56)
[2017-02-07] MEDS: ALPRAZolam 0.25 MG TAB PO PRN ×2 (08:53→17:20)
[2017-02-07] MEDS: FUROSEMIDE 40 MG TAB PO SCH ×2 (08:54→17:13)
[2017-02-07] MEDS: ATENOLOL 25 MG TAB PO SCH (08:55)
[2017-02-07] MEDS: AMIODARONE 200 MG TAB PO SCH ×2 (08:55→21:57)
[2017-02-07] MEDS: FERROUS SULFATE 325 MG TAB PO SCH (08:55)
[2017-02-07 09:30] LABS: Anisocytosis Slight; Basophils % (A) 0 %; CH 20.1; CHCM 28.2; Eosinophils % (A) 0 %; HCT 30.4 % (34.0-46.0); HDW 3.17; HGB 8.7 gm/dL (11.4-16.0); Hypochromasia Marked; Luc # (Auto) 0.09; Luc % (Auto) 1; Lymphocytes # (A) 0.7 k/uL (1.0-4.8); Lymphocytes % (A) 7 %; MCH 20.6 pg (25.0-35.0); MCHC 28.6 g/dL (31.0-37.0); MCV 71.9 fL (80.0-100.0); Mean Platelet Volume 7.7; Microcytosis Moderate; Monocytes # (A) 0.5 k/uL (0-1.0); Monocytes % (A) 5 %; Neutrophils # (A) 8.8 k/uL (1.3-7.7); Neutrophils % (A) 87 %; RBC 4.22 m/uL (3.80-5.40); WBC 10.1 k/uL (3.8-10.6); WBC (Perox) 10.47
[2017-02-07 11:43] LABS: Glucose,Whole Blood 234 mg/dL (75-99)
[2017-02-07 11:49] LABS: Bilirubin, Delta 0.3 mg/dL (0.0-0.2); Total Bilirubin 0.5 mg/dL (0.2-1.3); Total Protein 5.5 g/dL (6.3-8.2)
[2017-02-07 12:01] LABS: % Iron Saturation 26.3 % (20-50)
[2017-02-07] MEDS: PANTOPRAZOLE 40 MG TABLET PO SCH (13:05)
--- NOTE | 2017-02-07 14:21 | P.PN ---
Subjective This is a 56-year-old female who is being evaluated and examined today on the sixth floor. Patient came into the emergency room originally with complaints of shortness of breath that had been increasing over the last few days. The patient was brought in by EMS and was given breathing treatments with minimal relief. Patient states that she feels her lungs are "gurgling". Patient does have a significant medical history for congestive heart failure, COPD, asthma, atrial fibrillation, renal insufficiency, and liver disease. The patient also noted to have some increased swelling of her lower extremities that has gotten worse over the last few days as well. Patient has no history of DVTs and takes Coumadin daily for her atrial fibrillation however she has not taken her Coumadin in the last 4 days. The patient does use home oxygen at all times in the form of 2 L via nasal cannula. When she came into the emergency room she was requiring oxygen of 6 L. Upon examination the patient's resting up in bed on 3 L of oxygen she complains of a congested cough, was able to provide a repeat sputum collection.. Continues with shortness of breath with exertion and extensive conversation. At home she wears 2LPM of oxygen. Today she states she is feeling a little better. Patient's potassium has improved. Objective - Vital Signs Vital signs: Vital Signs Temp 96.8 F L 02/07/17 04:00 Pulse 62 02/07/17 09:17 Resp 18 02/07/17 04:00 BP 117/68 02/07/17 04:00 Pulse Ox 100 02/07/17 08:51 Intake & Output 02/06/17 02/07/17 02/07/17 18:59 06:59 18:59 Intake Total 1800 240 100 Output Total 1400 300 500 Balance 400 -60 -400 Weight 48 kg Intake: IV 240 240 0.9 240 240 Oral 1560 100 Output: Urine 1400 300 500 Uretheral ([place]) 1400 Other: Voiding Method Indwelling Catheter Indwelling Catheter # Bowel Movements 0 - Exam GENERAL EXAM: Alert, active, comfortable in no apparent distress. HEAD: Normocephalic. EYES: Normal reaction of pupils, equal size. NOSE: Clear with pink turbinates. THROAT: No erythema or exudates. NECK: No masses, no JVD. CHEST: No chest wall deformity. LUNGS: Equal air entry with scattered rhonchi, some expiratory wheezes. CVS: S1 and S2 heard with audible mumurs, ABDOMEN: No hepatosplenomegaly, normal bowel sounds, no guarding or rigidity. EXTREMITIES: Trace edema noted, pedal pulses palpable. SKIN: No rashes CENTRAL NERVOUS SYSTEM: No focal deficits, tone is normal in all 4 extremities. - Labs CBC & Chem 7: 02/07/17 05:56 02/07/17 05:56 Labs: Abnormal Lab Results - Last 24 Hours (Table) 02/05/17 02/06/17 02/06/17 Range/Units 21:18 05:51 06:07 Hgb (11.4-16.0) gm/dL Hct (34.0-46.0) % MCV (80.0-100.0) fL MCH (25.0-35.0) pg MCHC (31.0-37.0) g/dL RDW (11.5-15.5) % Neutrophils # (1.3-7.7) k/uL Lymphocytes # (1.0-4.8) k/uL PT (9.0-12.0) sec Potassium (3.5-5.1) mmol/L Chloride (98-107) mmol/L Carbon Dioxide (22-30) mmol/L BUN (7-17) mg/dL Glucose (74-99) mg/dL POC Glucose (mg/dL) 222 H 146 H (75-99) mg/dL Calcium (8.4-10.2) mg/dL Magnesium (1.6-2.3) mg/dL TIBC 210 L (265-497) ug/dL % Saturation 57.6 H (20-50) % Ferritin 851 H (11-264) ng/mL 02/06/17 02/06/17 02/06/17 Range/Units 16:46 18:33 20:52 Hgb (11.4-16.0) gm/dL Hct (34.0-46.0) % MCV (80.0-100.0) fL MCH (25.0-35.0) pg MCHC (31.0-37.0) g/dL RDW (11.5-15.5) % Neutrophils # (1.3-7.7) k/uL Lymphocytes # (1.0-4.8) k/uL PT (9.0-12.0) sec Potassium 3.0 L* (3.5-5.1) mmol/L Chloride (98-107) mmol/L Carbon Dioxide (22-30) mmol/L BUN (7-17) mg/dL Glucose (74-99) mg/dL POC Glucose (mg/dL) 146 H 242 H (75-99) mg/dL Calcium (8.4-10.2) mg/dL Magnesium (1.6-2.3) mg/dL TIBC (265-497) ug/dL % Saturation (20-50) % Ferritin (11-264) ng/mL 02/07/17 02/07/17 02/07/17 Range/Units 05:56 05:56 05:56 Hgb 8.7 L (11.4-16.0) gm/dL Hct 30.4 L (34.0-46.0) % MCV 71.9 L (80.0-100.0) fL MCH 20.6 L (25.0-35.0) pg MCHC 28.6 L (31.0-37.0) g/dL RDW 16.0 H (11.5-15.5) % Neutrophils # 8.8 H (1.3-7.7) k/uL Lymphocytes # 0.7 L (1.0-4.8) k/uL PT 18.8 H (9.0-12.0) sec Potassium (3.5-5.1) mmol/L Chloride 90 L (98-107) mmol/L Carbon Dioxide 40 H* (22-30) mmol/L BUN 32 H (7-17) mg/dL Glucose 147 H (74-99) mg/dL POC Glucose (mg/dL) (75-99) mg/dL Calcium 7.2 L (8.4-10.2) mg/dL Magnesium 1.4 L (1.6-2.3) mg/dL TIBC (265-497) ug/dL % Saturation (20-50) % Ferritin (11-264) ng/mL 02/07/17 Range/Units 06:31 Hgb (11.4-16.0) gm/dL Hct (34.0-46.0) % MCV (80.0-100.0) fL MCH (25.0-35.0) pg MCHC (31.0-37.0) g/dL RDW (11.5-15.5) % Neutrophils # (1.3-7.7) k/uL Lymphocytes # (1.0-4.8) k/uL PT (9.0-12.0) sec Potassium (3.5-5.1) mmol/L Chloride (98-107) mmol/L Carbon Dioxide (22-30) mmol/L BUN (7-17) mg/dL Glucose (74-99) mg/dL POC Glucose (mg/dL) 163 H (75-99) mg/dL Calcium (8.4-10.2) mg/dL Magnesium (1.6-2.3) mg/dL TIBC (265-497) ug/dL % Saturation (20-50) % Ferritin (11-264) ng/mL Microbiology - Last 24 Hours (Table) 02/04/17 12:18 Gram Stain - Final Sputum Sputum Culture - Final Areli albicans Assessment and Plan Plan: Assessment Right-sided pneumonia suspected mixed, gram-negative in nature Acute exacerbation of chronic obstructive pulmonary disease Acute on chronic hypoxic respiratory failure Congestive heart failure, combined systolic and diastolic Anemia Atrial fibrillation Hypokalemia Plan Medications have been reviewed and will be continued as ordered. We will continue with nebulizer treatments, supplemental oxygen and pulmonary hygiene. Mucinex added to help with secretions. Incentive spirometer encouraged. Potassium and magnesium replacement per protocol. Awaiting results of repeat sputum culture. We will continue to monitor labs/results and adjust treatment as necessary. I performed an examination of the patient and discussed their management with the nurse practitioner. I have reviewed the nurse practitioner's note and agree with the documented findings and plan of care. [email or web address]
[2017-02-07] MEDS: FLUCONAZOLE 100 MG TAB PO SCH (14:41)
--- NOTE | 2017-02-07 15:46 | PN ---
DATE OF SERVICE: 02/07/2017 56-year-old white female. New data: Her height is 5 feet 7 inches. Weight 48 kg BSA 1.54, BMI 16.6 kg/sq m. ALLERGY TO ASPIRIN. The patient of Dr. Morales Eubanks dictating progress note follow-up on 02/07/[address] Cain in the temporary absence of Dr. Eubanks. The patient has been admitted to the hospital with the underlying pneumonia atrial fibrillation, congestive heart failure, and she has also underlying psychiatric disorder and chronic pain syndrome. Her current seen evaluated face to face. Her laboratory and white count, WBC 10.1, with a hemoglobin 8.7 and hematocrit 38.4 with an MCV 71.9 with the underlying anemia microcytic, hypochromic and an unknown clarification if it is iron deficiency or absorption problem from the stomach. The patient is not eating and she has a low weight problem. BMI seen 15.6. Her platelet count is normal 193 and she had hypochromasia and moderate macrocytosis as well as slight anisocytosis. Her PT is 18.8 with INR 1.9. She was and still is on Coumadin therapy and we will continue the Coumadin therapy. She was therapeutic yesterday and today after discontinuation of the heparin, her INR dropped. Her potassium is 3.8 normalized today with sodium 137, her chloride is 90 and carbon dioxide is 40. She has been seen and followed by the pulmonary critical, Dr. Segun Hinds. Her creatinine is 0.8 with a BUN of 32. Estimated glomerular filtration rate more than 60. She is also a diabetic. The fasting blood sugar this morning was 147, reasonable and calcium is 7.2 with hypocalcemia, hypomagnesemia and I did discuss it with the nurse R.N. taking care of the patient for supplement to be given as advised by the order to have her supplementation protocol. Her iron today found to be 62 and, total binding capacity is 236 and which is low. Her serum ferritin is 568 with saturation is 26.3, which indicating patient with chronic illness and chronic disease not from the iron deficiency. The iron saturation was 26.3 as well. Her ( ) bilirubin was 0.3, AST normal at 20, ALT 31, alkaline phosphatase 90. She had mild protein calorie deficiency with the total protein is 5.5 and albumin 2.7 with the vitamin B12 level 611 which is normal and serum folate is range is 3.33, which could be on the low side of the normal and with the probably deficiency of the Folic acid could be associated. As the folic acid range is wide to her number, results 3.33. PHYSICAL EXAMINATION: GENERAL APPEARANCE: The patient is conscious, alert, oriented. Her vital signs: Temperature 96.5 orally, pulse of 64 and pulse rate 64-75. Respiratory rate 16, and blood pressure 120/67 with a mean of 84. Her oxygen saturation 100% on 3 liters nasal cannula. On the examination, she is conscious, alert, oriented. She had severe pallor, the conjunctivae was pale and sclerae pale, pupils equal and reactive. Skin pale on tongue is still ( ). No stomatitis. Skin has deep pigmentation spots. NECK: Supple. No lymphadenopathy. CHEST: Increased anteroposterior diameter with the underlying bilateral rhonchi and we will be planning for a chest x-ray tomorrow. The sputum was found to be yeast and we will start her on Diflucan. Heart was PMI in the fifth outside midclavicular line. She had irregular irregularities with atrial fibrillation and she is on medication for that. The abdomen was soft, positive bowel sounds. EXTREMITIES: No edema. However, also she had some pigmentation, it looks like stasis dermatitis, but resolved, maybe because I do not know her much than Dr. Morales Eubanks, but no edema. however, in spite that her protein and albumin was low. The patient had history of seeing Dr. Segun Hinds pulmonary and critical care. ASSESSMENT: 1. At that time, right-sided pneumonia suspected mixed gram-negative in nature acute exacerbation of chronic obstructive pulmonary disease. Acute chronic hypoxemic respiratory failure and she had also combined congestive heart failure combined systolic and diastolic. 2. Anemia. 3. Atrial fibrillation. 4. The patient was seen by Dr. Eubanks and in his history and physical was indicated the patient has hypoxemic respiratory failure acute on top of chronic as well as she has acute on the top of chronic congestive heart failure combined systolic and diastolic. She has advanced and mitral stenosis and she had a history of valvuloplasty. She had a chronic atrial fibrillation. She had a microcytic anemia could be chronic gastrointestinal blood loss and she had chronic renal failure, hyponatremia, diabetes mellitus, gastroesophageal reflux disease. Currently what we find that she had sputum with yeast started on Diflucan as a plan as well as Folic acid was low, we are going to start her on Folic acid 1 mg once daily.
[2017-02-07 16:46] LABS: Glucose,Whole Blood 247 mg/dL (75-99)
[2017-02-07] MEDS: FOLIC ACID-VIT B COMPLEX-VIT C 1 CAP PO SCH (17:12)
[2017-02-07 20:48] LABS: Glucose,Whole Blood 224 mg/dL (75-99)
[2017-02-07] MEDS: WARFARIN 1.5 MG TAB PO SCH (21:57)
[2017-02-07] MEDS: LEVOFLOXACIN 750 MG TAB PO SCH (22:01)
[2017-02-07] MEDS: INSULIN GLARGINE 100 UNIT/ML 10 ML VIAL SQ SCH (22:02)
[2017-02-08] MEDS: HYDROcodone/APAP 10-325MG 1 EACH TAB PO PRN ×5 (02:49→20:04)
[2017-02-08] MEDS: HYDROmorphone 1 MG/ML 1 ML SYRINGE IVP PRN ×5 (02:50→20:05)
[2017-02-08 06:09] LABS: Glucose,Whole Blood 199 mg/dL (75-99)
[2017-02-08 06:48] LABS: Basophils % (A) 0 %; CH 20.5; CHCM 29.2; Eosinophils # (A) 0.1 k/uL (0-0.7); Eosinophils % (A) 1 %; HDW 3.28; HGB 8.6 gm/dL (11.4-16.0); Hypochromasia Marked; Luc # (Auto) 0.06; Luc % (Auto) 1; Lymphocytes # (A) 0.7 k/uL (1.0-4.8); Lymphocytes % (A) 7 %; MCHC 29.6 g/dL (31.0-37.0); MCV 70.8 fL (80.0-100.0); Mean Platelet Volume 7.6; Microcytosis Moderate; Monocytes # (A) 0.4 k/uL (0-1.0); Monocytes % (A) 4 %; Neutrophils # (A) 8.6 k/uL (1.3-7.7); Neutrophils % (A) 87 %; RBC 4.09 m/uL (3.80-5.40); WBC 9.9 k/uL (3.8-10.6); WBC (Perox) 10.04
[2017-02-08 06:53] LABS: INR 2.3 (<1.1); Prothrombin Time 22.2 sec (9.0-12.0)
[2017-02-08] MEDS: ALPRAZolam 0.25 MG TAB PO PRN ×2 (06:54→20:05)
[2017-02-08 07:03] LABS: Blood Urea Nitrogen 34 mg/dL (7-17); Calcium 7.3 mg/dL (8.4-10.2); Chloride 90 mmol/L (98-107); Glucose 151 mg/dL (74-99); Magnesium 2.3 mg/dL (1.6-2.3); Non-African American GFR(MDRD) >60 (>60 ml/min/1.73 sqM); Potassium 4.1 mmol/L (3.5-5.1); Sodium 134 mmol/L (137-145)
[2017-02-08] MEDS: INSULIN LISPRO (humaLOG) 300 UNIT/3 ML VIAL SQ SCH ×4 (07:08→22:20)
[2017-02-08 07:09] LABS: Anion Gap 3 mmol/L
[2017-02-08] MEDS: methylPREDNISolone SOD SUCCI 40 MG/ML 1 ML VIAL IV SCH ×3 (07:09→20:07)
[2017-02-08 07:19] LABS: Carbon Dioxide 41 mmol/L (22-30)
[2017-02-08] MEDS: BUDESONIDE 0.5 MG/2 ML NEBU INHALATION SCH ×2 (08:07→19:18)
[2017-02-08] MEDS: IPRATROPIUM-ALBUTEROL 3 ML NEB INHALATION SCH ×4 (08:07→19:18)
[2017-02-08] MEDS: ATENOLOL 25 MG TAB PO SCH (08:22)
[2017-02-08] MEDS: guaiFENesin 600 MG TABLET.ER PO SCH ×2 (08:22→20:07)
[2017-02-08] MEDS: FLUCONAZOLE 100 MG TAB PO SCH (08:22)
[2017-02-08] MEDS: FERROUS SULFATE 325 MG TAB PO SCH (08:22)
[2017-02-08] MEDS: AMIODARONE 200 MG TAB PO SCH ×2 (08:23→20:07)
[2017-02-08] MEDS: POLYETHYLENE GLYCOL 3350 17 GM POWD.PACK PO SCH (08:23)
[2017-02-08] MEDS: PANTOPRAZOLE 40 MG TABLET PO SCH (08:23)
[2017-02-08] MEDS: FUROSEMIDE 40 MG TAB PO SCH ×2 (08:23→16:10)
[2017-02-08 09:03] LABS: Hemoglobin A1C 5.2 % (4.2-6.1)
--- NOTE | 2017-02-08 11:00 | XR ---
EXAMINATION TYPE: XR chest 2V DATE OF EXAM: 02/08/2017 7:57 AM COMPARISON: Prior chest x-ray 04 February 2017 HISTORY: Follow-up pneumonia TECHNIQUE: Frontal and lateral views of the chest are obtained. FINDINGS: There is increased attenuation at the right lung base which is progressed in the interval. No pneumothorax is evident. Heart remains enlarged. There are overlying cardiac leads. Interstitium is mildly increased but improved. IMPRESSION: Right pleural effusion and associated atelectasis, correlate for pneumonia, improving con gestive heart failure.
--- NOTE | 2017-02-08 11:35 | P.PN ---
Subjective This is a 56-year-old female who is being evaluated and examined today on the sixth floor. Patient came into the emergency room originally with complaints of shortness of breath that had been increasing over the last few days. The patient was brought in by EMS and was given breathing treatments with minimal relief. Patient states that she feels her lungs are "gurgling". Patient does have a significant medical history for congestive heart failure, COPD, asthma, atrial fibrillation, renal insufficiency, and liver disease. The patient also noted to have some increased swelling of her lower extremities that has gotten worse over the last few days as well. Patient has no history of DVTs and takes Coumadin daily for her atrial fibrillation however she has not taken her Coumadin in the last 4 days. The patient does use home oxygen at all times in the form of 2 L via nasal cannula. When she came into the emergency room she was requiring oxygen of 6 L. Upon examination the patient's resting up in bed on 3 L of oxygen she complains of a congested cough, was able to provide a repeat sputum collection.. Continues with shortness of breath with exertion and extensive conversation. At home she wears 2LPM of oxygen. Today she states she is feeling a little better. Patient's potassium has improved. Today's chest x-ray reviewed and we will order an ultrasound of the chest to evaluate pleural effusions. Objective - Vital Signs Vital signs: Vital Signs Temp 97.3 F L 02/08/17 08:00 Pulse 68 02/08/17 08:32 Resp 18 02/08/17 08:00 BP 108/71 02/08/17 08:00 Pulse Ox 94 L 02/08/17 08:00 Intake & Output 02/07/17 02/08/17 02/08/17 18:59 06:59 18:59 Intake Total 440 240 Output Total 950 600 Balance -510 -360 Weight 46.5 kg Intake: IV 240 0.9 240 Intake, IV Titration 300 Amount Magnesium Sulfate-D5w Pmx 300 1 gm In Dextrose/Water 1 100ml.bag @ 100 mls/hr IVPB Q1H [facility] Rx#: [id number] Oral 140 Output: Urine 950 600 Other: Voiding Method Indwelling Catheter Indwelling Catheter Indwelling Catheter - Exam GENERAL EXAM: Alert, active, comfortable in no apparent distress. HEAD: Normocephalic. EYES: Normal reaction of pupils, equal size. NOSE: Clear with pink turbinates. THROAT: No erythema or exudates. NECK: No masses, no JVD. CHEST: No chest wall deformity. LUNGS: Equal air entry with scattered rhonchi, some expiratory wheezes. CVS: S1 and S2 heard with audible mumurs, ABDOMEN: No hepatosplenomegaly, normal bowel sounds, no guarding or rigidity. EXTREMITIES: Trace edema noted, pedal pulses palpable. SKIN: No rashes CENTRAL NERVOUS SYSTEM: No focal deficits, tone is normal in all 4 extremities. - Labs CBC & Chem 7: 02/08/17 06:31 02/08/17 06:31 Labs: Abnormal Lab Results - Last 24 Hours (Table) 02/07/17 02/07/17 02/07/17 Range/Units 05:56 05:56 11:41 Hgb (11.4-16.0) gm/dL Hct (34.0-46.0) % MCV (80.0-100.0) fL MCH (25.0-35.0) pg MCHC (31.0-37.0) g/dL RDW (11.5-15.5) % Neutrophils # (1.3-7.7) k/uL Lymphocytes # (1.0-4.8) k/uL PT (9.0-12.0) sec Sodium (137-145) mmol/L Chloride (98-107) mmol/L Carbon Dioxide (22-30) mmol/L BUN (7-17) mg/dL Glucose (74-99) mg/dL POC Glucose (mg/dL) 234 H (75-99) mg/dL Calcium (8.4-10.2) mg/dL TIBC 236 L (265-497) ug/dL Ferritin 568 H (11-264) ng/mL Delta Bilirubin 0.3 H (0.0-0.2) mg/dL Total Protein 5.5 L (6.3-8.2) g/dL Albumin 2.7 L (3.5-5.0) g/dL PTH Intact 319.6 H (14.0-72.0) pg/mL 02/07/17 02/07/17 02/08/17 Range/Units 16:44 20:47 06:08 Hgb (11.4-16.0) gm/dL Hct (34.0-46.0) % MCV (80.0-100.0) fL MCH (25.0-35.0) pg MCHC (31.0-37.0) g/dL RDW (11.5-15.5) % Neutrophils # (1.3-7.7) k/uL Lymphocytes # (1.0-4.8) k/uL PT (9.0-12.0) sec Sodium (137-145) mmol/L Chloride (98-107) mmol/L Carbon Dioxide (22-30) mmol/L BUN (7-17) mg/dL Glucose (74-99) mg/dL POC Glucose (mg/dL) 247 H 224 H 199 H (75-99) mg/dL Calcium (8.4-10.2) mg/dL TIBC (265-497) ug/dL Ferritin (11-264) ng/mL Delta Bilirubin (0.0-0.2) mg/dL Total Protein (6.3-8.2) g/dL Albumin (3.5-5.0) g/dL PTH Intact (14.0-72.0) pg/mL 02/08/17 02/08/17 02/08/17 Range/Units 06:31 06:31 06:31 Hgb 8.6 L (11.4-16.0) gm/dL Hct 29.0 L (34.0-46.0) % MCV 70.8 L (80.0-100.0) fL MCH 21.0 L (25.0-35.0) pg MCHC 29.6 L (31.0-37.0) g/dL RDW 16.0 H (11.5-15.5) % Neutrophils # 8.6 H (1.3-7.7) k/uL Lymphocytes # 0.7 L (1.0-4.8) k/uL PT 22.2 H (9.0-12.0) sec Sodium 134 L (137-145) mmol/L Chloride 90 L (98-107) mmol/L Carbon Dioxide 41 H* (22-30) mmol/L BUN 34 H (7-17) mg/dL Glucose 151 H (74-99) mg/dL POC Glucose (mg/dL) (75-99) mg/dL Calcium 7.3 L (8.4-10.2) mg/dL TIBC (265-497) ug/dL Ferritin (11-264) ng/mL Delta Bilirubin (0.0-0.2) mg/dL Total Protein (6.3-8.2) g/dL Albumin (3.5-5.0) g/dL PTH Intact (14.0-72.0) pg/mL Assessment and Plan Plan: Assessment Right-sided pneumonia suspected mixed, gram-negative in nature Acute exacerbation of chronic obstructive pulmonary disease Acute on chronic hypoxic respiratory failure Congestive heart failure, combined systolic and diastolic Anemia Atrial fibrillation Hypokalemia Plan Medications have been reviewed and will be continued as ordered. Ultrasound of the chest has been ordered. We will continue with nebulizer treatments, supplemental oxygen and pulmonary hygiene. Incentive spirometer encouraged. Potassium and magnesium replacement per protocol. Awaiting results of repeat sputum culture. We will continue to monitor labs/results and adjust treatment as necessary. I performed an examination of the patient and discussed their management with the nurse practitioner. I have reviewed the nurse practitioner's note and agree with the documented findings and plan of care. rachelle
[2017-02-08 11:41] LABS: Glucose,Whole Blood 143 mg/dL (75-99)
[2017-02-08] MEDS: FOLIC ACID-VIT B COMPLEX-VIT C 1 CAP PO SCH (12:30)
--- NOTE | 2017-02-08 15:32 | US ---
EXAMINATION TYPE: US chest DATE OF EXAM: 02/08/2017 12:16 PM COMPARISON: Chest x-ray same date CLINICAL HISTORY: Pleural effusions. EXAM MEASUREMENTS: Right Pleural Effusion fluid pocket: 4.2 cm Right skin to fluid thickness: 1.3 cm Left Pleural Effusion fluid pocket: 0.4 cm Right side marked for possible thoracentesis outside the dept. Left side NOT marked for possible thoracentesis outside the dept. Pulmonologists are able to review the images in the patient?s EMR. IMPRESSIONS: Moderate right-sided pleural effusion, minimal left pleural effusion
--- NOTE | 2017-02-08 16:13 | PN ---
DATE OF SERVICE: 02/08/2017 I am covering for Dr. Morales Eubanks in his temporary absence. DATA: She is 5 feet 7 inches. Weight 46.5 kg. BSA 1.52 sq meter. BMI 16.1 kg/sq meter. ALLERGIES: ASPIRIN. Patient was seen today face to face. I discussed with her the current planning and management. Also discussed with her that her attending, Dr. Eubanks, will be following her today afternoon or tomorrow morning if needed, and he will be back in town today at the end of the day. Patient had laboratory today indicating WBC 9.9, hemoglobin 8.6, hematocrit 29.0, MCV 70.8 with platelet count 184, normalized. She had microcytosis and she has also microhypochromasia. She has fibrillation, on anticoagulant of Coumadin. She is therapeutic today with the pro time 22.2 and INR 2.3. Her electrolytes indicate sodium 134, potassium 4.1, chloride 90, carbon dioxide 41. Her anion gap is 3. BUN 34, creatinine 0.76. Her estimated glomerular filtration rate for non- is more than 60. No evidence of renal insufficiency at this time. Her glucose 151 fasting this morning and subsequently 143 with the addition of 5 units of Lantus at bedtime. Her hemoglobin A1c is found to be 5.2. She is on insulin to scale during the day. She has a magnesium of 2.3 with a calcium 7.3. We did request PTH intact; however, I do not have the results available yet. Her vitamin B12 level was 611 and 629, normal. Serum folate was low at 3.33 and 3.68. The low range is 2.75; however, she is closer to that, so clinically she has folic acid deficiency. She has also thyroid TSH normal function, 3.7 on February 06. The PTH intact was 319.6; with this was the indication of possibility of primary hyperthyroidism, highly suspicious. Her beta natriuretic peptide on January 31, 2017, was 6820; however, on February 07, 2017, it is 17,900, which is elevated. Her alkaline phosphatase on admission was elevated at 137; however, currently it is 90 on February 07. Liver enzymes were within normal limits. ALT and AST were also in normal range. Her iron on February 06 was 121 and on February 07 it was 62. Saturation ranging on February 06 of 57.6; however, on February 07 it was 26.3, indicating no evidence of iron deficiency. TIBC was done on February 06 and which was 236 and 210, indicating chronic illness or disease. Serum ferritin was high. It was 568 on February 07 and on February 06 it was 851, which is significantly elevated. Her total bilirubin was normal. Blood culture was negative. That was obtained on admission. Her chest x-ray today was indicating increased attenuation at the right lung base which has progressed in interval; no evidence of pneumothorax. Heart remains enlarged and there is overlying cardiac lead. The interstitium is mildly increased but improved with the presence of right pleural effusion associated with atelectasis; correlate for pneumonia, improving the congestive heart failure, per Dr. Enmanuel Izquierdo, the radiologist. PHYSICAL EXAMINATION: CURRENT VITAL SIGNS: Temperature 97 axillary, pulse 66, respiratory rate 18, blood pressure 105/68 with a mean 80. Oxygen saturation 95% on 2 L nasal cannula. HEENT: Head was normocephalic, atraumatic. Pupils equal, reactive. She had pale conjunctivae and pale sclerae. NECK: Supple. No lymphadenopathy. Trachea midline. I could not feel any enlargement on the thyroid. CHEST: Increased anteroposterior diameter. She had still scattered rhonchi. Sputum was found to be yeast and she was started on Diflucan. HEART: PMI in the fifth outside midclavicular line, mild cardiac cardiomegaly. She has irregular irregularities with atrial fibrillation and currently has controlled ventricular response; however, proBNP was elevated. ABDOMEN: No tenderness in the abdomen in the 4 quadrants. She is still on steroids. EXTREMITIES: No edema and positive pulses. NEURO: No neuro deficit. ASSESSMENT: 1. Patient has normal to low blood pressure; appeared to be naturally. 2. Folic acid deficiency, mild; started on Nephrocaps. 3. Anemia, microcytic hypochromic, with normal iron studies, normal vitamin B12 level. 4. Chronic obstructive pulmonary disease with acute exacerbation, acute on top of chronic. 5. Hypoxemic respiratory failure, acute on top of chronic. 6. History of right lower lobe pneumonia, treated by Dr. Segun Hinds, Pulmonary. 7. Chronic pain syndrome, currently comfortable with the current medication. 8. Underlying atrial fibrillation, currently with normal controlled ventricular response with the history of acute exacerbation on the top of chronic, probably diastolic and systolic. 9. Primary hyperparathyroidism; questionable; renal function has been normalized. Patient probably may need further evaluation for her hyperparathyroidism with the underlying calcium low and questionable secondary hyperparathyroidism also considered and will be checked on vitamin D, he 25-hydroxy vitamin D. Her magnesium is normal. CURRENT PLAN: 1. Continuation of the antibiotic. 2. Dr. Eubanks will be available tomorrow to continue care for the patient. Further questions for Pulmonary about the steroids that the patient currently takes and needs adjustment, and the antibiotic as well. Question of evaluation of the primary versus secondary hyperparathyroidism. Obtain vitamin D level. I do not see vitamin D level.
[2017-02-08 17:20] LABS: Glucose,Whole Blood 175 mg/dL (75-99)
[2017-02-08] MEDS: WARFARIN 1.5 MG TAB PO SCH (20:07)
[2017-02-08] MEDS: LEVOFLOXACIN 750 MG TAB PO SCH (20:07)
[2017-02-08] MEDS: traZODone HCL 50 MG TAB PO SCH (20:07)
[2017-02-08 20:44] LABS: Glucose,Whole Blood 159 mg/dL (75-99)
[2017-02-08] MEDS: INSULIN GLARGINE 100 UNIT/ML 10 ML VIAL SQ SCH (22:21)
[2017-02-09] MEDS: HYDROmorphone 1 MG/ML 1 ML SYRINGE IVP PRN ×6 (00:02→22:26)
[2017-02-09] MEDS: HYDROcodone/APAP 10-325MG 1 EACH TAB PO PRN ×6 (00:02→22:27)
[2017-02-09] MEDS: ALPRAZolam 0.25 MG TAB PO PRN (00:02)
[2017-02-09 05:29] LABS: Glucose,Whole Blood 126 mg/dL (75-99)
[2017-02-09] MEDS: INSULIN LISPRO (humaLOG) 300 UNIT/3 ML VIAL SQ SCH ×4 (06:17→22:40)
[2017-02-09 06:42] LABS: ALT 32 U/L (9-52); AST 25 U/L (14-36); Alkaline Phosphatase 79 U/L (38-126); Anion Gap 6 mmol/L; Blood Urea Nitrogen 34 mg/dL (7-17); Calcium 7.7 mg/dL (8.4-10.2); Carbon Dioxide 38 mmol/L (22-30); Chloride 89 mmol/L (98-107); Glucose 109 mg/dL (74-99); Non-African American GFR(MDRD) >60 (>60 ml/min/1.73 sqM); Sodium 133 mmol/L (137-145); Total Bilirubin 0.6 mg/dL (0.2-1.3); Total Protein 5.6 g/dL (6.3-8.2)
[2017-02-09 06:44] LABS: INR 2.7 (<1.1); Prothrombin Time 25.8 sec (9.0-12.0)
[2017-02-09 06:49] LABS: Potassium 4.1 mmol/L (3.5-5.1)
[2017-02-09] MEDS: BUDESONIDE 0.5 MG/2 ML NEBU INHALATION SCH ×2 (07:21→20:22)
[2017-02-09] MEDS: IPRATROPIUM-ALBUTEROL 3 ML NEB INHALATION SCH ×4 (07:21→20:22)
[2017-02-09 07:37] LABS: Basophils % (A) 0 %; CH 20.3; CHCM 29.2; Eosinophils % (A) 0 %; HCT 30.5 % (34.0-46.0); HDW 3.21; Hypochromasia Marked; Luc # (Auto) 0.12; Luc % (Auto) 1; Lymphocytes # (A) 0.9 k/uL (1.0-4.8); Lymphocytes % (A) 6 %; MCH 20.6 pg (25.0-35.0); MCHC 29.5 g/dL (31.0-37.0); MCV 69.9 fL (80.0-100.0); Microcytosis Moderate; Monocytes # (A) 0.7 k/uL (0-1.0); Monocytes % (A) 5 %; Neutrophils # (A) 12.9 k/uL (1.3-7.7); Neutrophils % (A) 88 %; RBC 4.36 m/uL (3.80-5.40); RDW 15.9 % (11.5-15.5); WBC 14.6 k/uL (3.8-10.6); WBC (Perox) 14.82
[2017-02-09] MEDS: FUROSEMIDE 40 MG TAB PO SCH ×2 (07:52→16:04)
[2017-02-09] MEDS: POLYETHYLENE GLYCOL 3350 17 GM POWD.PACK PO SCH (07:52)
[2017-02-09] MEDS: AMIODARONE 200 MG TAB PO SCH ×2 (07:53→22:24)
[2017-02-09] MEDS: PANTOPRAZOLE 40 MG TABLET PO SCH (07:53)
[2017-02-09] MEDS: FLUCONAZOLE 100 MG TAB PO SCH (07:53)
[2017-02-09] MEDS: guaiFENesin 600 MG TABLET.ER PO SCH ×2 (07:53→22:24)
[2017-02-09] MEDS: FERROUS SULFATE 325 MG TAB PO SCH (07:54)
[2017-02-09] MEDS: ATENOLOL 25 MG TAB PO SCH (07:54)
[2017-02-09] MEDS: methylPREDNISolone SOD SUCCI 40 MG/ML 1 ML VIAL IV SCH ×2 (07:54→22:41)
[2017-02-09] MEDS: FOLIC ACID-VIT B COMPLEX-VIT C 1 CAP PO SCH (07:54)
[2017-02-09 09:52] LABS: Manual Review Performed; Target Cells Present
[2017-02-09 12:12] LABS: Glucose,Whole Blood 172 mg/dL (75-99)
--- NOTE | 2017-02-09 16:19 | P.PN ---
Subjective This is a 56-year-old female who is being evaluated and examined today on the sixth floor. Patient came into the emergency room originally with complaints of shortness of breath that had been increasing over the last few days. The patient was brought in by EMS and was given breathing treatments with minimal relief. Patient states that she feels her lungs are "gurgling". Patient does have a significant medical history for congestive heart failure, COPD, asthma, atrial fibrillation, renal insufficiency, and liver disease. The patient also noted to have some increased swelling of her lower extremities that has gotten worse over the last few days as well. Patient has no history of DVTs and takes Coumadin daily for her atrial fibrillation however she has not taken her Coumadin in the last 4 days. The patient does use home oxygen at all times in the form of 2 L via nasal cannula. When she came into the emergency room she was requiring oxygen of 6 L. Upon examination the patient's resting up in bed on 3 L of oxygen she complains of a congested cough. Continues with shortness of breath with exertion and extensive conversation. At home she wears 2LPM of oxygen. Today she states she is feeling a little better. Patient's potassium has improved. Today's chest x-ray reviewed and we will order an ultrasound of the chest Bilateral pleural effusions, right side is greater than the left, however it is not large enough to undergo thorocentesis and will be medically managed. Objective - Vital Signs Vital signs: Vital Signs Temp 97.0 F L 02/09/17 15:01 Pulse 72 02/09/17 15:01 Resp 16 02/09/17 15:19 BP 98/59 02/09/17 15:01 Pulse Ox 100 02/09/17 15:01 Intake & Output 02/08/17 02/09/17 02/09/17 18:59 06:59 18:59 Intake Total 760 1520 380 Output Total 600 800 600 Balance 160 720 -220 Weight 46.5 kg 46.5 kg Intake: IV 120 320 0.9 120 320 Oral 640 1200 380 Output: Urine 600 800 600 Other: Voiding Method Indwelling Catheter Indwelling Catheter Indwelling Catheter # Voids 1 - Exam GENERAL EXAM: Alert, active, comfortable in no apparent distress. HEAD: Normocephalic. EYES: Normal reaction of pupils, equal size. NOSE: Clear with pink turbinates. THROAT: No erythema or exudates. NECK: No masses, no JVD. CHEST: No chest wall deformity. LUNGS: Equal air entry with scattered rhonchi, some expiratory wheezes. CVS: S1 and S2 heard with audible mumurs, ABDOMEN: No hepatosplenomegaly, normal bowel sounds, no guarding or rigidity. EXTREMITIES: Trace edema noted, pedal pulses palpable. SKIN: No rashes CENTRAL NERVOUS SYSTEM: No focal deficits, tone is normal in all 4 extremities. - Labs CBC & Chem 7: 02/09/17 06:15 02/09/17 06:15 Labs: Abnormal Lab Results - Last 24 Hours (Table) 02/08/17 02/08/17 02/08/17 Range/Units 06:31 17:15 20:43 WBC (3.8-10.6) k/uL Hgb (11.4-16.0) gm/dL Hct (34.0-46.0) % MCV (80.0-100.0) fL MCH (25.0-35.0) pg MCHC (31.0-37.0) g/dL RDW (11.5-15.5) % Neutrophils # (1.3-7.7) k/uL Lymphocytes # (1.0-4.8) k/uL PT (9.0-12.0) sec Sodium (137-145) mmol/L Chloride (98-107) mmol/L Carbon Dioxide (22-30) mmol/L BUN (7-17) mg/dL Glucose (74-99) mg/dL POC Glucose (mg/dL) 175 H 159 H (75-99) mg/dL Calcium (8.4-10.2) mg/dL Total Protein (6.3-8.2) g/dL Albumin (3.5-5.0) g/dL Vitamin D 25-Hydroxy 10.7 L (30.0-100.0) ng/mL 02/09/17 02/09/17 02/09/17 Range/Units 05:27 06:15 06:15 WBC 14.6 H (3.8-10.6) k/uL Hgb 9.0 L (11.4-16.0) gm/dL Hct 30.5 L (34.0-46.0) % MCV 69.9 L (80.0-100.0) fL MCH 20.6 L (25.0-35.0) pg MCHC 29.5 L (31.0-37.0) g/dL RDW 15.9 H (11.5-15.5) % Neutrophils # 12.9 H (1.3-7.7) k/uL Lymphocytes # 0.9 L (1.0-4.8) k/uL PT 25.8 H (9.0-12.0) sec Sodium (137-145) mmol/L Chloride (98-107) mmol/L Carbon Dioxide (22-30) mmol/L BUN (7-17) mg/dL Glucose (74-99) mg/dL POC Glucose (mg/dL) 126 H (75-99) mg/dL Calcium (8.4-10.2) mg/dL Total Protein (6.3-8.2) g/dL Albumin (3.5-5.0) g/dL Vitamin D 25-Hydroxy (30.0-100.0) ng/mL 02/09/17 02/09/17 Range/Units 06:15 11:34 WBC (3.8-10.6) k/uL Hgb (11.4-16.0) gm/dL Hct (34.0-46.0) % MCV (80.0-100.0) fL MCH (25.0-35.0) pg MCHC (31.0-37.0) g/dL RDW (11.5-15.5) % Neutrophils # (1.3-7.7) k/uL Lymphocytes # (1.0-4.8) k/uL PT (9.0-12.0) sec Sodium 133 L (137-145) mmol/L Chloride 89 L (98-107) mmol/L Carbon Dioxide 38 H (22-30) mmol/L BUN 34 H (7-17) mg/dL Glucose 109 H (74-99) mg/dL POC Glucose (mg/dL) 172 H (75-99) mg/dL Calcium 7.7 L (8.4-10.2) mg/dL Total Protein 5.6 L (6.3-8.2) g/dL Albumin 2.8 L (3.5-5.0) g/dL Vitamin D 25-Hydroxy (30.0-100.0) ng/mL Microbiology - Last 24 Hours (Table) 02/08/17 08:16 Gram Stain - Preliminary Sputum Assessment and Plan Plan: Assessment Right-sided pneumonia suspected mixed, gram-negative in nature Acute exacerbation of chronic obstructive pulmonary disease Acute on chronic hypoxic respiratory failure Congestive heart failure, combined systolic and diastolic Anemia Atrial fibrillation Hypokalemia Plan Medications have been reviewed and will be continued as ordered. Ultrasound of the chest has been ordered. We will continue with nebulizer treatments, supplemental oxygen and pulmonary hygiene. Incentive spirometer encouraged, cough and deep breathe. Potassium and magnesium replacement per protocol. Pleural effusions not large enough for thoracentesis, medical manage for now. We will continue to monitor labs/results and adjust treatment as necessary. I performed an examination of the patient and discussed their management with the nurse practitioner. I have reviewed the nurse practitioner's note and agree with the documented findings and plan of care. rachelle
[2017-02-09 16:52] LABS: Glucose,Whole Blood 170 mg/dL (75-99)
[2017-02-09] MEDS: LEVOFLOXACIN 750 MG TAB PO SCH (22:24)
[2017-02-09] MEDS: INSULIN GLARGINE 100 UNIT/ML 10 ML VIAL SQ SCH (22:25)
[2017-02-09] MEDS: traZODone HCL 50 MG TAB PO SCH ×2 (22:42→22:51)
[2017-02-09] MEDS: WARFARIN 1.5 MG TAB PO SCH (22:44)
[2017-02-09 22:46] LABS: Glucose,Whole Blood 99 mg/dL (75-99)
[2017-02-10] MEDS: ALPRAZolam 0.25 MG TAB PO PRN (02:58)
[2017-02-10] MEDS: IPRATROPIUM-ALBUTEROL 3 ML NEB INHALATION PRN (03:22)
[2017-02-10] MEDS: HYDROcodone/APAP 10-325MG 1 EACH TAB PO PRN ×5 (06:18→22:42)
[2017-02-10] MEDS: HYDROmorphone 1 MG/ML 1 ML SYRINGE IVP PRN ×5 (06:19→22:42)
[2017-02-10 06:57] LABS: Glucose,Whole Blood 105 mg/dL (75-99)
[2017-02-10] MEDS: INSULIN LISPRO (humaLOG) 300 UNIT/3 ML VIAL SQ SCH ×4 (07:44→21:44)
[2017-02-10] MEDS: IPRATROPIUM-ALBUTEROL 3 ML NEB INHALATION SCH ×4 (08:42→21:53)
[2017-02-10] MEDS: BUDESONIDE 0.5 MG/2 ML NEBU INHALATION SCH ×2 (08:42→21:53)
[2017-02-10 09:30] LABS: INR 2.8 (<1.1); Prothrombin Time 26.9 sec (9.0-12.0)
[2017-02-10] MEDS: POLYETHYLENE GLYCOL 3350 17 GM POWD.PACK PO SCH (10:10)
[2017-02-10] MEDS: FUROSEMIDE 40 MG TAB PO SCH ×2 (10:11→15:40)
[2017-02-10] MEDS: PANTOPRAZOLE 40 MG TABLET PO SCH (10:11)
[2017-02-10] MEDS: guaiFENesin 600 MG TABLET.ER PO SCH ×2 (10:11→20:51)
[2017-02-10] MEDS: AMIODARONE 200 MG TAB PO SCH ×2 (10:11→20:51)
[2017-02-10] MEDS: ATENOLOL 25 MG TAB PO SCH (10:11)
[2017-02-10] MEDS: FLUCONAZOLE 100 MG TAB PO SCH (10:12)
[2017-02-10] MEDS: methylPREDNISolone SOD SUCCI 40 MG/ML 1 ML VIAL IV SCH (10:12)
[2017-02-10] MEDS: MAGNESIUM HYDROXIDE 2,400 MG/10 ML CUP PO PRN (10:24)
[2017-02-10 11:40] LABS: Glucose,Whole Blood 121 mg/dL (75-99)
[2017-02-10] MEDS: WARFARIN 1.5 MG TAB PO SCH (12:45)
[2017-02-10] MEDS: FOLIC ACID-VIT B COMPLEX-VIT C 1 CAP PO SCH (13:02)
[2017-02-10] MEDS: FERROUS SULFATE 325 MG TAB PO SCH (13:02)
[2017-02-10 14:46] VITALS: BMI 14.5
--- NOTE | 2017-02-10 14:50 | XR ---
EXAMINATION TYPE: XR chest 1V portable DATE OF EXAM: 02/10/2017 2:24 PM COMPARISON: Prior chest x-ray 08 February 2017, CT scan abdomen 06 September 2016 HISTORY: Pleural effusion, shortness of breath TECHNIQUE: Single frontal view of the chest is obtained. FINDINGS: Findings are similar. IMPRESSION: Right-sided pleural effusion and associated atelectasis versus pneumonia. Interstitium r emains prominent, correlate for pulmonary venous hypertension and interstitial edema. Cardiomegaly. C alcification at the left heart apex may be due to aneurysm as noted on prior CT.
--- NOTE | 2017-02-10 15:42 | PN ---
DATE OF SERVICE: 02/09/2017 This 56-year-old white female who was admitted with increasing shortness of breath and general weakness was found to have pneumonia and congestive heart failure. Patient was admitted to the hospital for further evaluation and treatment. Patient is known to have multiple chronic illnesses. She has very advanced mitral stenosis and chronic atrial fibrillation. She has had mitral valvuloplasty in the past. Patient has combined diastolic and systolic congestive heart failure. She also has chronic atrial fibrillation and has been on Coumadin. She has chronic obstructive pulmonary disease, diabetes mellitus and chronic low back pain. Since admission patient was seen by Dr. Hinds in consultation. The patient was receiving IV antibiotics and updraft treatments and also IV Solu-Medrol. Patient was also seen by [facility] in consultation. Patient was getting treatment for congestive heart failure. Her overall condition has improved and she is getting stabilized. She also has anemia, which has improved with iron tablets. Patient's vital signs are stable. Her congestive heart failure is improving. Patient's heart is being still monitored. As her condition is improving, we will start making plans for discharging her. She is going to be transferred to a regular medical floor today. Prognosis guarded.
--- NOTE | 2017-02-10 15:45 | PN ---
DATE OF SERVICE: 02/10/2017 This is a 56-year-old white female who was admitted with severe shortness of breath and general weakness. Patient has multiple chronic illnesses. At the time of admission patient had right lower lobe pneumonia and pleural effusion and also she had a markedly elevated BNP showing congestive heart failure. She has chronic atrial fibrillation, chronic obstructive pulmonary disease, diabetes mellitus and advanced mitral stenosis. She has been placed on antibiotics and updraft treatments and IV Solu-Medrol; seen by Dr. Hinds in consultation. Patient was also seen by [facility] in consultation. She also received IV diuretics, IV antibiotics, IV Solu-Medrol and updraft treatments. The patient's overall condition is improved. She was found to have anemia and she was placed on ferrous sulfate. This is also improving. Currently patient seems to be fairly comfortable. She is using nasal oxygen constantly. Her condition is getting stabilized. If she continues to improve, she will be discharged home possibly tomorrow.
[2017-02-10 17:18] LABS: Glucose,Whole Blood 142 mg/dL (75-99)
--- NOTE | 2017-02-10 17:55 | P.PN ---
Subjective This is a 56-year-old female who is being evaluated and examined today on the sixth floor. Patient came into the emergency room originally with complaints of shortness of breath that had been increasing over the last few days. The patient was brought in by EMS and was given breathing treatments with minimal relief. Patient states that she feels her lungs are "gurgling". Patient does have a significant medical history for congestive heart failure, COPD, asthma, atrial fibrillation, renal insufficiency, and liver disease. The patient also noted to have some increased swelling of her lower extremities that has gotten worse over the last few days as well. Patient has no history of DVTs and takes Coumadin daily for her atrial fibrillation however she has not taken her Coumadin in the last 4 days. The patient does use home oxygen at all times in the form of 2 L via nasal cannula. When she came into the emergency room she was requiring oxygen of 6 L. Upon examination the patient's resting up in bed on 2-3 L of oxygen she complains of a congested cough. Continues with shortness of breath with exertion and extensive conversation, however it is improving. At home she wears 2LPM of oxygen. Today she states she is feeling a little better. Patient 's potassium has improved. Today's chest x-ray reviewed and we will order an ultrasound of the chest Bilateral pleural effusions, right side is greater than the left, however it is not large enough to undergo thoracentesis and will be medically managed. Objective - Vital Signs Vital signs: Vital Signs Temp 98.6 F 02/10/17 15:00 Pulse 65 02/10/17 15:00 Resp 16 02/10/17 15:13 BP 117/67 02/10/17 15:00 Pulse Ox 100 02/10/17 15:00 Intake & Output 02/09/17 02/10/17 02/10/17 18:59 06:59 18:59 Intake Total 380 300 Output Total 600 900 Balance -220 -600 Weight 42 kg 42 kg Intake: Oral 380 300 Output: Urine 600 900 Other: Voiding Method Indwelling Catheter Indwelling Catheter # Bowel Movements 0 - Exam GENERAL EXAM: Alert, active, comfortable in no apparent distress. HEAD: Normocephalic. EYES: Normal reaction of pupils, equal size. NOSE: Clear with pink turbinates. THROAT: No erythema or exudates. NECK: No masses, no JVD. CHEST: No chest wall deformity. LUNGS: Equal air entry with scattered rhonchi, some expiratory wheezes. CVS: S1 and S2 heard with audible mumurs, ABDOMEN: No hepatosplenomegaly, normal bowel sounds, no guarding or rigidity. EXTREMITIES: Trace edema noted, pedal pulses palpable. SKIN: No rashes CENTRAL NERVOUS SYSTEM: No focal deficits, tone is normal in all 4 extremities. - Labs CBC & Chem 7: 02/09/17 06:15 02/09/17 06:15 Labs: Abnormal Lab Results - Last 24 Hours (Table) 02/07/17 02/10/17 02/10/17 Range/Units 05:56 06:55 08:40 PT 26.9 H (9.0-12.0) sec POC Glucose (mg/dL) 105 H (75-99) mg/dL Methylmalonic Acid 1.50 H (<0.40) umol/L 02/10/17 02/10/17 Range/Units 11:39 17:14 PT (9.0-12.0) sec POC Glucose (mg/dL) 121 H 142 H (75-99) mg/dL Methylmalonic Acid (<0.40) umol/L Microbiology - Last 24 Hours (Table) 02/08/17 08:16 Gram Stain - Final Sputum Sputum Culture - Final Corynebacterium striatum Assessment and Plan Plan: Assessment Right-sided pneumonia suspected mixed, gram-negative in nature Acute exacerbation of chronic obstructive pulmonary disease Acute on chronic hypoxic respiratory failure Congestive heart failure, combined systolic and diastolic Anemia Atrial fibrillation Hypokalemia Plan Patient can be cleared from a pulmonary standpoint for discharge tomorrow. Medications have been reviewed and will be continued as ordered. Ultrasound of the chest has been ordered. We will continue with nebulizer treatments, supplemental oxygen and pulmonary hygiene. Incentive spirometer encouraged, cough and deep breathe. Potassium and magnesium replacement per protocol. Pleural effusions not large enough for thoracentesis, medical manage for now. We will continue to monitor labs/results and adjust treatment as necessary. I performed an examination of the patient and discussed their management with the nurse practitioner. I have reviewed the nurse practitioner's note and agree with the documented findings and plan of care. rachelle
[2017-02-10] MEDS: LEVOFLOXACIN 750 MG TAB PO SCH (20:51)
[2017-02-10 21:28] LABS: Glucose,Whole Blood 170 mg/dL (75-99)
[2017-02-10] MEDS: INSULIN GLARGINE 100 UNIT/ML 10 ML VIAL SQ SCH (21:44)
[2017-02-10] MEDS: traZODone HCL 50 MG TAB PO SCH (23:45)
[2017-02-11] MEDS: ALPRAZolam 0.25 MG TAB PO PRN ×2 (00:58→18:18)
[2017-02-11 02:29] LABS: Glucose,Whole Blood 74 mg/dL (75-99)
[2017-02-11] MEDS: HYDROmorphone 1 MG/ML 1 ML SYRINGE IVP PRN ×4 (02:32→17:23)
[2017-02-11] MEDS: HYDROcodone/APAP 10-325MG 1 EACH TAB PO PRN ×4 (02:32→20:38)
[2017-02-11] MEDS: BUDESONIDE 0.5 MG/2 ML NEBU INHALATION SCH ×2 (07:25→19:57)
[2017-02-11] MEDS: IPRATROPIUM-ALBUTEROL 3 ML NEB INHALATION SCH ×4 (07:25→19:57)
[2017-02-11 07:30] LABS: Glucose,Whole Blood 78 mg/dL (75-99)
[2017-02-11] MEDS: INSULIN LISPRO (humaLOG) 300 UNIT/3 ML VIAL SQ SCH ×4 (07:35→21:49)
[2017-02-11] MEDS: PANTOPRAZOLE 40 MG TABLET PO SCH (08:23)
[2017-02-11] MEDS: predniSONE 20 MG TAB PO SCH (08:23)
[2017-02-11] MEDS: AMIODARONE 200 MG TAB PO SCH ×2 (08:23→21:10)
[2017-02-11] MEDS: guaiFENesin 600 MG TABLET.ER PO SCH ×2 (08:23→21:10)
[2017-02-11] MEDS: ATENOLOL 25 MG TAB PO SCH (08:23)
[2017-02-11] MEDS: FUROSEMIDE 40 MG TAB PO SCH ×2 (08:23→16:22)
[2017-02-11] MEDS: FLUCONAZOLE 100 MG TAB PO SCH (08:23)
[2017-02-11] MEDS: POLYETHYLENE GLYCOL 3350 17 GM POWD.PACK PO SCH (08:23)
[2017-02-11 09:17] LABS: Anisocytosis Slight; Basophils % (A) 0 %; CH 20.3; CHCM 29.2; Eosinophils % (A) 0 %; HCT 34.2 % (34.0-46.0); HDW 3.21; Hypochromasia Marked; Luc # (Auto) 0.23; Luc % (Auto) 1; Lymphocytes # (A) 2.5 k/uL (1.0-4.8); Lymphocytes % (A) 12 %; MCH 20.6 pg (25.0-35.0); MCHC 29.3 g/dL (31.0-37.0); MCV 70.3 fL (80.0-100.0); Mean Platelet Volume 6.3; Microcytosis Moderate; Monocytes # (A) 1.2 k/uL (0-1.0); Monocytes % (A) 6 %; Neutrophils # (A) 16.3 k/uL (1.3-7.7); Neutrophils % (A) 80 %; RBC 4.86 m/uL (3.80-5.40); RDW 16.3 % (11.5-15.5); WBC 20.4 k/uL (3.8-10.6); WBC (Perox) 20.21
[2017-02-11 09:22] LABS: INR 2.8 (<1.1); Prothrombin Time 27.3 sec (9.0-12.0)
[2017-02-11 11:56] LABS: Glucose,Whole Blood 78 mg/dL (75-99)
[2017-02-11] MEDS: FERROUS SULFATE 325 MG TAB PO SCH (12:12)
[2017-02-11] MEDS: FOLIC ACID-VIT B COMPLEX-VIT C 1 CAP PO SCH (12:12)
--- NOTE | 2017-02-11 13:09 | P.PN ---
Subjective This is a 56-year-old female who is being evaluated and examined today on the sixth floor. Patient came into the emergency room originally with complaints of shortness of breath that had been increasing over the last few days. The patient was brought in by EMS and was given breathing treatments with minimal relief. Patient states that she feels her lungs are "gurgling". Patient does have a significant medical history for congestive heart failure, COPD, asthma, atrial fibrillation, renal insufficiency, and liver disease. The patient also noted to have some increased swelling of her lower extremities that has gotten worse over the last few days as well. Patient has no history of DVTs and takes Coumadin daily for her atrial fibrillation however she has not taken her Coumadin in the last 4 days. The patient does use home oxygen at all times in the form of 2 L via nasal cannula. When she came into the emergency room she was requiring oxygen of 6 L. Upon examination the patient's resting up in bed on 2-3 L of oxygen she complains of a congested cough. Continues with shortness of breath with exertion and extensive conversation, however it is improving. At home she wears 2LPM of oxygen. Today she states she is feeling a little better. Patient 's potassium has improved. Chest x-ray reviewed and we will order an ultrasound of the chest Bilateral pleural effusions, right side is greater than the left, however it is not large enough to undergo thoracentesis and will be medically managed. Patient's catheter discontinued today, patient could go home tomorrow. Objective - Vital Signs Vital signs: Vital Signs Temp 96.9 F L 02/11/17 07:00 Pulse 72 02/11/17 11:35 Resp 18 02/11/17 07:00 BP 113/50 02/11/17 07:00 Pulse Ox 100 02/11/17 10:53 Intake & Output 02/10/17 02/11/17 02/11/17 18:59 06:59 18:59 Intake Total 200 240 Output Total 500 550 Balance -500 -350 240 Weight 42 kg 45.5 kg Intake: Oral 200 240 Output: Urine 500 550 Other: Voiding Method Indwelling Catheter Indwelling Catheter - Exam GENERAL EXAM: Alert, active, comfortable in no apparent distress. HEAD: Normocephalic. EYES: Normal reaction of pupils, equal size. NOSE: Clear with pink turbinates. THROAT: No erythema or exudates. NECK: No masses, no JVD. CHEST: No chest wall deformity. LUNGS: Equal air entry with scattered rhonchi, some expiratory wheezes. CVS: S1 and S2 heard with audible mumurs, ABDOMEN: No hepatosplenomegaly, normal bowel sounds, no guarding or rigidity. EXTREMITIES: No edema noted, pedal pulses palpable. SKIN: No rashes CENTRAL NERVOUS SYSTEM: No focal deficits, tone is normal in all 4 extremities. - Labs CBC & Chem 7: 02/11/17 08:40 02/09/17 06:15 Labs: Abnormal Lab Results - Last 24 Hours (Table) 02/10/17 02/10/17 02/11/17 Range/Units 17:14 21:26 02:06 WBC (3.8-10.6) k/uL Hgb (11.4-16.0) gm/dL MCV (80.0-100.0) fL MCH (25.0-35.0) pg MCHC (31.0-37.0) g/dL RDW (11.5-15.5) % Neutrophils # (1.3-7.7) k/uL Monocytes # (0-1.0) k/uL PT (9.0-12.0) sec POC Glucose (mg/dL) 142 H 170 H 74 L (75-99) mg/dL 02/11/17 02/11/17 Range/Units 08:40 08:40 WBC 20.4 H (3.8-10.6) k/uL Hgb 10.0 L (11.4-16.0) gm/dL MCV 70.3 L (80.0-100.0) fL MCH 20.6 L (25.0-35.0) pg MCHC 29.3 L (31.0-37.0) g/dL RDW 16.3 H (11.5-15.5) % Neutrophils # 16.3 H (1.3-7.7) k/uL Monocytes # 1.2 H (0-1.0) k/uL PT 27.3 H (9.0-12.0) sec POC Glucose (mg/dL) (75-99) mg/dL Microbiology - Last 24 Hours (Table) 02/08/17 08:16 Gram Stain - Final Sputum Sputum Culture - Final Corynebacterium striatum Assessment and Plan Plan: Assessment Right-sided pneumonia suspected mixed, gram-negative in nature Acute exacerbation of chronic obstructive pulmonary disease Acute on chronic hypoxic respiratory failure Congestive heart failure, combined systolic and diastolic Anemia Atrial fibrillation Hypokalemia Plan Patient can be cleared from a pulmonary standpoint for discharge tomorrow. Medications have been reviewed and will be continued as ordered. We will continue with nebulizer treatments, supplemental oxygen and pulmonary hygiene. Incentive spirometer encouraged, cough and deep breathe. Potassium and magnesium replacement per protocol. Pleural effusions not large enough for thoracentesis, medical manage for now. Burg[place] catheter has been discontinued. Written prescription in the chart for oral prednisone upon discharge. Antibiotics in computer electronically prescribed. We will continue to monitor labs/results and adjust treatment as necessary. I performed an examination of the patient and discussed their management with the nurse practitioner. I have reviewed the nurse practitioner's note and agree with the documented findings and plan of care.
[2017-02-11 17:27] LABS: Glucose,Whole Blood 104 mg/dL (75-99)
[2017-02-11 20:37] LABS: Glucose,Whole Blood 128 mg/dL (75-99)
[2017-02-11] MEDS: WARFARIN 1.5 MG TAB PO SCH (20:42)
[2017-02-11] MEDS: traZODone HCL 50 MG TAB PO SCH (21:10)
[2017-02-11] MEDS: LEVOFLOXACIN 750 MG TAB PO SCH (21:10)
[2017-02-11] MEDS: INSULIN GLARGINE 100 UNIT/ML 10 ML VIAL SQ SCH (21:49)
--- NOTE | 2017-02-11 22:07 | PN ---
DATE OF SERVICE: 02/11/2017 This is a 56-year-old white female who has multiple chronic medical problems. She has advanced mitral stenosis and she has had a valvuloplasty in the past and now has very severe mitral stenosis and chronic congestive heart failure and chronic atrial fibrillation, chronic obstructive lung disease, diabetes mellitus, and degenerative arthritis of multiple joints, also with low back pain. She was admitted to the hospital with right lower lobe pneumonia and congestive heart failure. The patient was seen by Dr. Hinds in consultation and she has been receiving IV antibiotics, updraft treatments and IV Solu-Medrol and diabetes being controlled with NovoLog sliding scale. The patient also was seen by [facility] in consultation. Patient's overall general condition has improved and she is currently getting all her antibiotics. Her chest x-ray shows improvement. Her overall prognosis is guarded. If the patient continues to improve and if she is stable, the patient is going to be discharged home tomorrow. Overall prognosis is guarded.
[2017-02-12] MEDS: HYDROmorphone 1 MG/ML 1 ML SYRINGE IVP PRN ×2 (01:12→05:54)
[2017-02-12 02:06] LABS: Glucose,Whole Blood 89 mg/dL (75-99)
[2017-02-12] MEDS: HYDROcodone/APAP 10-325MG 1 EACH TAB PO PRN ×3 (02:16→13:07)
[2017-02-12] MEDS: ALPRAZolam 0.25 MG TAB PO PRN (03:30)
[2017-02-12] MEDS: IPRATROPIUM-ALBUTEROL 3 ML NEB INHALATION PRN (03:35)
[2017-02-12 07:36] LABS: Glucose,Whole Blood 93 mg/dL (75-99)
[2017-02-12] MEDS: INSULIN LISPRO (humaLOG) 300 UNIT/3 ML VIAL SQ SCH ×2 (07:37→11:46)
[2017-02-12 07:44] VITALS: BP 107/47; RESP 22; TEMP 96.9
[2017-02-12] MEDS: ATENOLOL 25 MG TAB PO SCH (08:14)
[2017-02-12] MEDS: AMIODARONE 200 MG TAB PO SCH (08:14)
[2017-02-12] MEDS: predniSONE 20 MG TAB PO SCH (08:14)
[2017-02-12] MEDS: POLYETHYLENE GLYCOL 3350 17 GM POWD.PACK PO SCH (08:14)
[2017-02-12] MEDS: PANTOPRAZOLE 40 MG TABLET PO SCH (08:14)
[2017-02-12] MEDS: FLUCONAZOLE 100 MG TAB PO SCH (08:14)
[2017-02-12] MEDS: FUROSEMIDE 40 MG TAB PO SCH (08:14)
[2017-02-12] MEDS: guaiFENesin 600 MG TABLET.ER PO SCH (08:14)
[2017-02-12] MEDS: BUDESONIDE 0.5 MG/2 ML NEBU INHALATION SCH (08:24)
[2017-02-12] MEDS: IPRATROPIUM-ALBUTEROL 3 ML NEB INHALATION SCH ×2 (08:24→13:07)
[2017-02-12 08:48] VITALS: PULSE 72
[2017-02-12] MEDS: FOLIC ACID-VIT B COMPLEX-VIT C 1 CAP PO SCH (11:17)
[2017-02-12] MEDS: FERROUS SULFATE 325 MG TAB PO SCH (11:17)
[2017-02-12 11:40] LABS: Glucose,Whole Blood 111 mg/dL (75-99)
--- NOTE | 2017-02-12 12:15 | PN ---
A 56-year-old female with severe mitral regurgitation, chronic atrial fibrillation, pulmonary hypertension and patient has severe COPD and emphysema as well. She is still short of breath, still having intermittent cough and congestion. She feels slightly more short of breath than baseline. Her hemodynamic status is stable. Blood pressure 110/50, respiratory rate 22, heart rate 75, temperature is 97, saturating 100% on 4 liters oxygen. HEENT EXAMINATION: Otherwise unremarkable. NECK: Supple. Neck veins are prominent. LUNGS: Bilateral fine coarse breath sounds present. HEART: Regular rate and rhythm, irregularly irregular. There is 3 to 4/6 early systolic murmur present. ABDOMEN: Soft. EXTREMITIES: Trace edema. NEUROLOGICAL EXAMINATION: Otherwise, awake and alert. Medications include: 1. DuoNeb unit dose 4 times a day. 2. Xanax. 3. Amiodarone 200 b.i.d. 4. Tenormin 25 mg daily. 5. Pulmicort 2 times a day. 6. Ferrous sulfate. 7. Diflucan 100 mg daily. 8. Lasix 40 mg daily. 9. Sliding scale insulin. 10. Levaquin 750 mg daily. 11. K-Mag replacement protocol. 12. Nephro-Cap. 13. Protonix. 14. Prednisone 40 mg daily. 15. Trazodone. 16. Coumadin. Laboratory data reviewed. The white cell count is 20,400, hemoglobin 10, hematocrit 34, platelet count 199,000. PT 27.3 and INR 2.8. IMPRESSION: 1. Severe chronic obstructive pulmonary disease, emphysema. 2. Right-sided pleural effusion with right lower lobe pneumonia. 3. Congestive heart failure related to valvular heart disease associated with severe mitral regurgitation. 4. Chronic atrial fibrillation, well anticoagulated. 5. History of chronic hypertension. 6. History of methicillin-resistant Staphylococcus aureus in the past. Infectious disease service following, adjusting the antibiotics. PLAN: Continue antibiotics. Continue deep breathing exercises and incentive spirometry for right-sided pleural effusion. Follow-up chest x-ray. The patient is not a candidate for thoracentesis given well-anticoagulated status. Will follow.
--- NOTE | 2017-04-13 14:37 | DS ---
DATE OF ADMISSION: 01/31/2017 DATE OF DISCHARGE: 02/12/2017 DISCHARGE DIAGNOSES: 1. Right middle and lower lobe pneumonia. 2. Chronic obstructive pulmonary disease with acute exacerbation. 3. Hypoxic respiratory failure acute on chronic. 4. Acute on chronic congestive heart failure combined diastolic and systolic. 5. Advanced mitral stenosis with past history of valvuloplasty. 6. Chronic atrial fibrillation. 7. Chronic microcytic anemia due to possible chronic gastrointestinal blood loss. 8. History of chronic renal failure and hyponatremia. 9. Diabetes mellitus. 10. History of gastroesophageal reflux disease. This is a 56-year-old white female who has multiple chronic medical problems and she is known to have chronic obstructive pulmonary disease and also she has chronic congestive heart failure, chronic renal failure. Chronic atrial fibrillation, diabetes mellitus, hypertensive cardiovascular disease and has had multiple hospitalizations recently. She also had been in [facility] rehab unit. The patient was brought to the emergency room because of increasing shortness of breath. In the ER, her CBC showed a WBC count of 16.6 and hemoglobin 9.4, platelet count 257,000. Sodium 133, potassium 4.9. BNP 6820. BUN 16, and creatinine 0.63. Her chest x-ray showed right middle and lower lobe pneumonia. The patient was admitted to the hospital for further evaluation and treatment. For details of the physical examination at time of admission, please refer to the history and physical. HOSPITAL COURSE: Patient was treated aggressively with IV antibiotics, IV Solu-Medrol, updraft treatments and also IV diuretics and she was seen by Dr. Hinds in consultation. Her diabetes is controlled with NovoLog sliding scale. She was also seen by [facility] in consultation. With these treatments, patient's overall general condition and respiratory problems improved. She was found to be anemic and she was placed on ferrous sulfate. Her activities were also increased and when her condition improved when stable, she was discharged home on 02/12/2017. She will continue on with Levaquin 500 mg p.o daily for 4 more days and Prednisone on prednisone tapering doses has given instruction and she will also continue with Xanax 0.25 mg p.o. b.i.d. p.r.n., albuterol nebulizer and amiodarone 200 mg p.o. b.i.d. Lanoxin 125 mcg daily, [place] 10/325 one every 8 hours as needed. Combivent inhaler p.r.n. Coumadin 1.5 mg p.o. daily. Hydralazine 25 mg p.o. b.i.d. ,Trazodone 50 mg daily at bedtime and her CBC and BMP and PT and INR will be checked in a week's time. She will be seen in my office for follow-up in a week's time.
== END 2017-02-12 13:24 | disposition home health service (06) | DRG 291 ==
LOC: EC 19:48 → 6SEL 23:00 → 4MS4W 02-09 13:31
PROVIDERS: ADMIT Internal Medicine; ATTEND Internal Medicine
DX: I13.0 Hypertensive heart and chronic kidney disease with heart failure and stage 1 through stage 4 chronic kidney disease, or unspecified chronic kidney disease (principal); I50.43 Acute on chronic combined systolic (congestive) and diastolic (congestive) heart failure; J96.21 Acute and chronic respiratory failure with hypoxia; J18.9 Pneumonia, unspecified organism; E11.22 Type 2 diabetes mellitus with diabetic chronic kidney disease; I48.1 Persistent atrial fibrillation; I27.2 Other secondary pulmonary hypertension; J44.0 Chronic obstructive pulmonary disease with (acute) lower respiratory infection; I48.2 Chronic atrial fibrillation; E87.1 Hypo-osmolality and hyponatremia; J44.1 Chronic obstructive pulmonary disease with (acute) exacerbation; Z68.1 Body mass index [BMI] 19.9 or less, adult; E44.1 Mild protein-calorie malnutrition; E83.42 Hypomagnesemia; D50.0 Iron deficiency anemia secondary to blood loss (chronic); E53.8 Deficiency of other specified B group vitamins; F17.200 Nicotine dependence, unspecified, uncomplicated; D75.89 Other specified diseases of blood and blood-forming organs; E21.0 Primary hyperparathyroidism; E83.51 Hypocalcemia; E87.6 Hypokalemia; G89.4 Chronic pain syndrome; I34.0 Nonrheumatic mitral (valve) insufficiency; I87.2 Venous insufficiency (chronic) (peripheral); J45.909 Unspecified asthma, uncomplicated; K21.9 Gastro-esophageal reflux disease without esophagitis; K59.00 Constipation, unspecified; M19.90 Unspecified osteoarthritis, unspecified site; N18.9 Chronic kidney disease, unspecified; Z79.01 Long term (current) use of anticoagulants; Z79.4 Long term (current) use of insulin; Z79.899 Other long term (current) drug therapy; Z82.49 Family history of ischemic heart disease and other diseases of the circulatory system; Z86.14 Personal history of Methicillin resistant Staphylococcus aureus infection; Z88.6 Allergy status to analgesic agent
CPT/HCPCS: 36415; 71010; 71020; 74230; 76604; 80048; 80053; 80076; 82306; 82550; 82553; 82607; 82652; 82728; 82746; 82803; 83036; 83540; 83550; 83735; 83880; 83921; 83970; 84132; 84443; 84484; 85025; 85027; 85610; 85730; 87040; 87070; 87205; 93005; 94640; 96365; 96366; 96367; 96375; 96376; 99285

== ENCOUNTER 2017-03-21 00:32 | Inpatient (IN) | payer OTHER ==
[2017-03-21] MEDS ORDERED: IPRATROPIUM-ALBUTEROL 3 ML NEB INHALATION STA ×2 (01:11→02:59)
[2017-03-21] MEDS ORDERED: SODIUM CHLORIDE 0.9% 1,000 ML IV STA (01:11)
[2017-03-21] MEDS ORDERED: methylPREDNISolone SOD SUCCI 125 MG/2 ML VIAL IV STA (01:11)
[2017-03-21] MEDS ORDERED: HYDROcodone/APAP 10-325MG 1 EACH TAB PO ONE (01:13)
[2017-03-21 01:42] LABS: ALT 33 U/L (9-52); AST 39 U/L (14-36); Alkaline Phosphatase 126 U/L (38-126); Anion Gap 7 mmol/L; Blood Urea Nitrogen 12 mg/dL (7-17); Calcium 8.3 mg/dL (8.4-10.2); Carbon Dioxide 30 mmol/L (22-30); Chloride 101 mmol/L (98-107); Glucose 119 mg/dL (74-99); Non-African American GFR(MDRD) >60 (>60 ml/min/1.73 sqM); Potassium 4.6 mmol/L (3.5-5.1); Sodium 138 mmol/L (137-145); Total Bilirubin 1.1 mg/dL (0.2-1.3); Total Protein 6.1 g/dL (6.3-8.2)
[2017-03-21 01:47] LABS: INR 1.3 (<1.1); Partial Thromboplastin Time 28.9 sec (22.0-30.0); Prothrombin Time 12.4 sec (9.0-12.0)
[2017-03-21 01:57] LABS: Basophils # (A) 0.1 k/uL (0-0.2); Basophils % (A) 0 %; CH 20.2; CHCM 29.9; Eosinophils # (A) 0.1 k/uL (0-0.7); Eosinophils % (A) 0 %; HCT 32.3 % (34.0-46.0); HDW 3.47; HGB 9.4 gm/dL (11.4-16.0); Hypochromasia Marked; Luc # (Auto) 0.22; Luc % (Auto) 1; Lymphocytes # (A) 2.1 k/uL (1.0-4.8); Lymphocytes % (A) 9 %; MCH 19.7 pg (25.0-35.0); MCHC 29.1 g/dL (31.0-37.0); Mean Platelet Volume 6.5; Microcytosis Marked; Monocytes # (A) 1.3 k/uL (0-1.0); Monocytes % (A) 5 %; Neutrophils # (A) 20.2 k/uL (1.3-7.7); Neutrophils % (A) 84 %; Poikilocytosis Slight; RBC 4.76 m/uL (3.80-5.40); RDW 15.3 % (11.5-15.5); WBC 23.9 k/uL (3.8-10.6); WBC (Perox) 24.96
[2017-03-21 02:00] LABS: MCV 67.9 fL (80.0-100.0)
[2017-03-21 02:07] LABS: Creatine Kinase MB 3.1 ng/mL (0.0-2.4); Troponin I 0.064 ng/mL (0.000-0.034)
[2017-03-21] MEDS ORDERED: RX INFO: IV CONTRAST WAS GIVEN 1 EACH MISC MISCELLANE PRN (02:28)
[2017-03-21] MEDS ORDERED: HEPARIN SODIUM,PORCINE 5,000 UNIT/ML 1 ML VIAL IV ONE (02:29)
[2017-03-21] MEDS ORDERED: HEPARIN SODIUM,PORCINE 5,000 UNIT/ML 1 ML VIAL IV PRN (02:29)
[2017-03-21] MEDS ORDERED: HEPARIN SODIUM,PORCINE/D5W PMX 25,000 UNIT in DEXTROSE/WATER 1 500ML.BAG IV SCH (02:30)
--- NOTE | 2017-03-21 02:41 | XR ---
EXAM: XR Chest, 2 Views CLINICAL HISTORY: Reason: difficulty breathing TECHNIQUE: Frontal and lateral views of the chest. COMPARISON: 02/10/17 portable chest, 02/08/17 two-view chest FINDINGS: Lungs: Pulmonary vascular markings are now significantly increased, diffusely prominent and indistinct throughout. There is again sequela from prior granulomatous disease including calcified left base granulomata. Pleural space: Moderate to large right pleural effusion appears increased. There may be a trace left pleural effusion. No pneumothorax. Heart: Cardiomediastinal silhouette is stable. Mediastinum: See above. Bones/joints: No acute displaced fracture is seen. IMPRESSION: New diffuse findings of CHF.
[2017-03-21] MEDS ORDERED: FUROSEMIDE 10 MG/ML 4 ML VIAL IV STA (02:50)
--- NOTE | 2017-03-21 03:00 | ED ---
SOB HPI - General Chief Complaint: Shortness of Breath Stated Complaint: SOB Time Seen by Provider: 03/21/17 01:03 Source: patient, EMS Mode of arrival: EMS Limitations: physical limitation - History of Present Illness Initial Comments: Shortness of breath on for for 5 days and yesterday she had a some chest pain and chest pain gets worse when she takes a deep breaths. She was recently admitted for COPD and pneumonia in she feels the same the pneumonia is back she has a long history of tobacco use and also had a fever and chills. Denies any headache no neck stiffness has shortness of breath and chest pain no abdominal pain frequency urgency dysuria no sinus symptoms of a TIA or CVA - Related Data Home Medications Medication Instructions Recorded Confirmed ALPRAZolam [Xanax] 0.25 mg PO BID PRN 05/19/15 02/01/17 HYDROcodone/APAP 10-325MG [[place] 1 tab PO Q8H PRN 05/19/15 02/01/17 10-325] Ipratropium/Albuterol Sulfate 1 puff INHALATION RT-QID PRN 05/19/15 02/01/17 [Combivent Respimat Inhaler] Albuterol Nebulized [Ventolin 2.5 mg INHALATION RT-QID PRN 02/01/17 02/01/17 Nebulized] Amiodarone [Cordarone] 200 mg PO BID 02/01/17 02/01/17 Digoxin [Digitek] 125 mcg PO DAILY 02/01/17 02/01/17 Ipratropium Nebulized [Atrovent 0.5 mg INHALATION RT-QID PRN 02/01/17 02/01/17 Nebulized] Warfarin [Coumadin] 1.5 mg PO HS 02/01/17 02/01/17 hydrALAZINE HCL [Apresoline] 25 mg PO BID 02/01/17 02/01/17 traZODone HCL 50 mg PO HS 02/01/17 02/01/17 Previous Rx's Medication Instructions Recorded Levofloxacin [Levaquin] 500 mg PO DAILY 4 Days 02/10/17 predniSONE 10 mg PO TID #50 tab 02/10/17 Allergies Allergy/AdvReac Type Severity Reaction Status Date / Time aspirin Allergy Unknown Verified 01/31/17 22:23 Review of Systems ROS Statement: Those systems with pertinent positive or pertinent negative responses have been documented in the HPI. ROS Other: All systems not noted in ROS Statement are negative. Past Medical History Past Medical History: Atrial Fibrillation, Asthma, Heart Failure, COPD, Diabetes Mellitus, GERD/Reflux, GI Bleed, Liver Disease, Pneumonia, Renal Disease, Skin Disorder Additional Past Medical History / Comment(s): Severe mitral valve stenosis and severe tricuspid valve regurgitation, current decub lower back per pt, UTI with sepsis, anemia, elevated liver enzymes in the past, chronic renal dx, Afib and has had RVR in past. History of Any Multi-Drug Resistant Organisms: VRE Date of last positivie culture/infection: 10/25/16 MDRO Source:: Urine Past Surgical History: Hysterectomy Additional Past Surgical History / Comment(s): 2 mitral valve balloon valvuloplasty, colonoscopy, PICC line insertion (since removed). Additional Past Anesthesia/Blood Transfusion Reaction / Comment(s): Pt has received blood in past without reaction. Past Psychological History: Anxiety Additional Psychological History / Comment(s): Single. Lives with adult daughter and her spouse. Has nebulizer and glucose monitor. no experience or international travel. No animal exposures. Positive tobacco use. No current alcohol or injection drug use Smoking Status: Current every day smoker Past Alcohol Use History: None Reported Additional Past Alcohol Use History / Comment(s): states heavier ETOH use in teens and 20's, none recent Past Drug Use History: None Reported - Past Family History Father Family Medical History: Dementia Additional Family Medical History / Comment(s): Father is in his 80's Mother Family Medical History: Myocardial Infarction (CA) Additional Family Medical History / Comment(s): valve disorder. Mother of a CA in her 30's General Exam Limitations: physical limitation Course Vital Signs 03/21/17 03/21/17 03/21/17 00:43 01:12 01:29 Temperature 97.1 F L Pulse Rate 71 103 H Respiratory 34 H 28 H Rate Blood Pressure 148/83 O2 Sat by Pulse 84 L Oximetry 03/21/17 03/21/17 03/21/17 01:38 03:01 03:10 Temperature Pulse Rate 100 96 100 Respiratory Rate Blood Pressure O2 Sat by Pulse Oximetry 03/21/17 03:14 Temperature Pulse Rate 94 Respiratory 28 H Rate Blood Pressure 183/77 O2 Sat by Pulse Oximetry EKG is atrial fibrillation fibrillation/flutter and she has a history of atrial fibrillation with ventricular rate is 82 QRS duration is a CT was well QT/QTc is 328/383 review of this EKG reveals some flattening of the T-wave in lead 2 and lead 3 noticed some flattening of the T-wave in aVL as well noticed some T- wave inversion and ST depression in lead V4 V5 and V6 - Reevaluation(s) Reevaluation #1: 03/21/17 03:43 Though she has been on Coumadin she was heparinize considering her INR was quite subtherapeutic but this is mainly for chest pain and elevated troponin and some changes on his EKG and CT chest angiogram has rule out PE Medical Decision Making - Lab Data Result diagrams: 03/21/17 01:21 03/21/17 01:21 Lab Results 03/21/17 03/21/17 03/21/17 Range/Units 01:21 01:21 01:21 WBC 23.9 H (3.8-10.6) k/uL RBC 4.76 (3.80-5.40) m/uL Hgb 9.4 L (11.4-16.0) gm/dL Hct 32.3 L (34.0-46.0) % MCV 67.9 L D (80.0-100.0) fL MCH 19.7 L (25.0-35.0) pg MCHC 29.1 L (31.0-37.0) g/dL RDW 15.3 (11.5-15.5) % Plt Count 250 (150-450) k/uL Neutrophils % 84 % Lymphocytes % 9 % Monocytes % 5 % Eosinophils % 0 % Basophils % 0 % Neutrophils # 20.2 H (1.3-7.7) k/uL Lymphocytes # 2.1 (1.0-4.8) k/uL Monocytes # 1.3 H (0-1.0) k/uL Eosinophils # 0.1 (0-0.7) k/uL Basophils # 0.1 (0-0.2) k/uL Hypochromasia Marked Poikilocytosis Slight Microcytosis Marked PT (9.0-12.0) sec INR (<1.1) APTT (22.0-30.0) sec D-Dimer (<0.60) mg/L FEU Sodium 138 (137-145) mmol/L Potassium 4.6 (3.5-5.1) mmol/L Chloride 101 (98-107) mmol/L Carbon Dioxide 30 (22-30) mmol/L Anion Gap 7 mmol/L BUN 12 (7-17) mg/dL Creatinine 0.60 (0.52-1.04) mg/dL Est GFR (MDRD) Af Amer >60 (>60 ml/min/1.73 sqM) Est GFR (MDRD) Non-Af >60 (>60 ml/min/1.73 sqM) Glucose 119 H (74-99) mg/dL Calcium 8.3 L (8.4-10.2) mg/dL Total Bilirubin 1.1 (0.2-1.3) mg/dL AST 39 H (14-36) U/L ALT 33 (9-52) U/L Alkaline Phosphatase 126 (38-126) U/L Total Creatine Kinase 70 (30-135) U/L CK-MB (CK-2) 3.1 H* (0.0-2.4) ng/mL CK-MB (CK-2) Rel Index 4.4 Troponin I 0.064 H* (0.000-0.034) ng/mL NT-Pro-B Natriuret Pep pg/mL Total Protein 6.1 L (6.3-8.2) g/dL Albumin 3.1 L (3.5-5.0) g/dL 03/21/17 03/21/17 Range/Units 01:21 01:21 WBC (3.8-10.6) k/uL RBC (3.80-5.40) m/uL Hgb (11.4-16.0) gm/dL Hct (34.0-46.0) % MCV (80.0-100.0) fL MCH (25.0-35.0) pg MCHC (31.0-37.0) g/dL RDW (11.5-15.5) % Plt Count (150-450) k/uL Neutrophils % % Lymphocytes % % Monocytes % % Eosinophils % % Basophils % % Neutrophils # (1.3-7.7) k/uL Lymphocytes # (1.0-4.8) k/uL Monocytes # (0-1.0) k/uL Eosinophils # (0-0.7) k/uL Basophils # (0-0.2) k/uL Hypochromasia Poikilocytosis Microcytosis PT 12.4 H (9.0-12.0) sec INR 1.3 (<1.1) APTT 28.9 (22.0-30.0) sec D-Dimer 1.25 H (<0.60) mg/L FEU Sodium (137-145) mmol/L Potassium (3.5-5.1) mmol/L Chloride (98-107) mmol/L Carbon Dioxide (22-30) mmol/L Anion Gap mmol/L BUN (7-17) mg/dL Creatinine (0.52-1.04) mg/dL Est GFR (MDRD) Af Amer (>60 ml/min/1.73 sqM) Est GFR (MDRD) Non-Af (>60 ml/min/1.73 sqM) Glucose (74-99) mg/dL Calcium (8.4-10.2) mg/dL Total Bilirubin (0.2-1.3) mg/dL AST (14-36) U/L ALT (9-52) U/L Alkaline Phosphatase (38-126) U/L Total Creatine Kinase (30-135) U/L CK-MB (CK-2) (0.0-2.4) ng/mL CK-MB (CK-2) Rel Index Troponin I (0.000-0.034) ng/mL NT-Pro-B Natriuret Pep 92730 pg/mL Total Protein (6.3-8.2) g/dL Albumin (3.5-5.0) g/dL Critical Care Time Total Critical Care Time: 45 Critical Care Time: He was quite distressed out respiratory armas respiratory rate was 34 and a she had some obvious retractions neb treatments and Solu-Medrol helped her then now we noticed the labs white count is quite elevated though x-ray doesn't show clear infiltrate they could be infiltrate in the year now being watched with some CHF white count is quite elevated for the left shift she would need some antibiotics d-dimer is elevated I plan to do the CT angiogram and troponin is elevated as well some positive changes on the EKG she'll be heparinized at this point and that she definitely can need admission she had a neb treatments along with the IV steroids and IV Lasix in the IV in the ER Disposition Clinical Impression: Dyspnea, D-dimer, elevated, Elevated troponin, CHF (congestive heart failure), Respiratory distress Disposition: ADMITTED IP TO THIS HOSP Condition: Fair Referrals: Morales Eubanks MD [Primary Care Provider] - 1-2 days
[2017-03-21] MEDS ORDERED: NITROGLYCERIN OINT 1 INCH/GM PACKET TOPICAL STA (03:01)
--- NOTE | 2017-03-21 03:23 | CT ---
EXAM: CT Angiography Chest With Intravenous Contrast CLINICAL HISTORY: Reason: Rule out PE TECHNIQUE: Axial computed tomographic angiography images of the chest with intravenous contrast using pulmonary embolism protocol. CTDI is 98.10 mGy and DLP is 147.20 mGy-cm. This CT exam was performed using one or more of the following dose reduction techniques: automated exposure control, adjustment of the mA and/or kV according to patient size, and/or use of iterative reconstruction technique. MIP reconstructed images were created and reviewed. COMPARISON: Earlier two-view chest of the same morning. FINDINGS: Pulmonary arteries: No evidence of pulmonary embolism seen. There is mild enlargement of the main pulmonary trunk, right and left pulmonary arteries suggesting a component of pulmonary arterial hypertension. Aorta: No acute findings. No thoracic aortic aneurysm. Lungs: Diffuse groundglass opacities throughout, with septal thickening most apparent at the apices. There is compressive atelectasis of the right middle and lower lobes. There is also round 2.0 cm masslike opacity in the peripheral left lower lobe on image 124. Pleural space: Moderate to large right pleural effusion with small left pleural effusion. No pneumothorax. Heart: Cardiomegaly with coronary artery calcification. Coronary atherosclerotic calcifications. Heavy mitral annular calcification. Calcification overlying the left ventricular apex may be pleural or pericardial based, rather than myocardial calcification from previous infarct. Reflux of contrast into the IVC and hepatic veins suggesting diminished right-sided cardiac function. Bones/joints: Degenerative changes without acute osseous abnormality seen. Lymph nodes: Mediastinal adenopathy with precarinal node measuring 15 mm AP diameter on image 60. IMPRESSION: 1. No evidence of pulmonary embolism is seen. 2. Findings again suggestive of CHF. 3. Now seen is nonspecific 2 cm left lower lobe nodule or infiltrate for which attention on follow-up CT after treatment is suggested to assess for improvement or clearing. 4. Additional findings as above includes the presence of pulmonary arterial hypertension, and an enlarged pretracheal node which is nonspecific although may be related to the ongoing acute process. This too could be reassessed at time of follow-up.
[2017-03-21] MEDS ORDERED: AZITHROMYCIN 500 MG in SODIUM CHLORIDE 0.9% 250 ML IVPB STA (03:28)
[2017-03-21] MEDS ORDERED: NITROGLYCERIN SL TABS 0.4 MG TAB SUBLINGUAL PRN (03:33)
[2017-03-21] MEDS ORDERED: MORPHINE SULFATE 2 MG/ML SYRINGE IVP PRN (03:33)
[2017-03-21] MEDS ORDERED: ALBUTEROL NEBULIZED 2.5 MG/3 ML INHALATION PRN (03:41)
[2017-03-21] MEDS ORDERED: IPRATROPIUM 0.5 MG/2.5 ML NEBU INHALATION PRN (03:41)
[2017-03-21] MEDS ORDERED: NON-FORMULARY DRUG (Ipratropium/Albuterol Sulfate [Combivent Respimat Inhaler] 1 PUFF) INHALATION PRN (03:41)
[2017-03-21 04:54] LABS: Basophils % (A) 0 %; Eosinophils % (A) 0 %; HCT 29.2 % (34.0-46.0); HDW 3.33; HGB 8.3 gm/dL (11.4-16.0); Hypochromasia Marked; Luc # (Auto) 0.08; Luc % (Auto) 0; Lymphocytes # (A) 0.8 k/uL (1.0-4.8); Lymphocytes % (A) 4 %; MCH 19.8 pg (25.0-35.0); MCHC 28.6 g/dL (31.0-37.0); MCV 69.1 fL (80.0-100.0); Mean Platelet Volume 7.2; Microcytosis Marked; Monocytes # (A) 0.5 k/uL (0-1.0); Monocytes % (A) 2 %; Neutrophils # (A) 19.5 k/uL (1.3-7.7); Neutrophils % (A) 93 %; RBC 4.22 m/uL (3.80-5.40); RDW 15.5 % (11.5-15.5); WBC 20.9 k/uL (3.8-10.6); WBC (Perox) 21.57
[2017-03-21 05:21] LABS: Creatine Kinase MB 2.4 ng/mL (0.0-2.4)
[2017-03-21 05:31] LABS: Troponin I 0.062 ng/mL (0.000-0.034)
[2017-03-21 06:46] LABS: Glucose,Whole Blood 189 mg/dL (75-99)
[2017-03-21] MEDS: IPRATROPIUM-ALBUTEROL 3 ML NEB INHALATION SCH ×4 (08:30→19:39)
[2017-03-21] MEDS: predniSONE 10 MG TAB PO SCH ×3 (08:31→21:14)
[2017-03-21] MEDS: hydrALAZINE HCL 25 MG TAB PO SCH ×2 (08:31→20:49)
[2017-03-21] MEDS: HYDROcodone/APAP 10-325MG 1 EACH TAB PO PRN ×3 (08:40→20:49)
--- NOTE | 2017-03-21 08:41 | P.PN ---
Progress Note - Text Alert Patient is in atrial fibrillation not atrial flutter, rate controlled, also on amiodarone 400 mg a day Chest x-ray is reviewed Discussed with patient Stop amiodarone This patient should not be treated with amiodarone any further. She is refractory to it and her increased lung markings could represent toxicity
[2017-03-21] MEDS ORDERED: DIGOXIN 125 MCG TAB PO SCH (09:00)
[2017-03-21] MEDS ORDERED: AMIODARONE 200 MG TAB PO SCH (09:00)
[2017-03-21] MEDS: ENOXAPARIN 40 MG/0.4 ML SYRINGE SQ SCH ×2 (09:13→20:49)
[2017-03-21 09:26] LABS: INR 1.3 (<1.1); Partial Thromboplastin Time 31.5 sec (22.0-30.0); Prothrombin Time 12.7 sec (9.0-12.0)
[2017-03-21 09:29] LABS: Iron <10 ug/dL (37-170)
[2017-03-21 09:35] LABS: % Iron Saturation <4.8 % (20-50); Total Iron Binding Capacity 210 ug/dL (265-497)
[2017-03-21 09:50] LABS: Creatine Kinase MB 2.2 ng/mL (0.0-2.4)
[2017-03-21 10:00] LABS: Troponin I 0.051 ng/mL (0.000-0.034)
--- NOTE | 2017-03-21 10:05 | CONS ---
DATE OF CONSULTATION: 56-year-old female who came in with shortness of breath and some pleuritic chest discomfort, pain-free at this time. Her past medical history and cardiac history includes atrial fibrillation. She has been 400 mg of amiodarone and remains in atrial fibrillation. EKG is atrial fibrillation it is not atrial flutter. She is also on digoxin. Rates are controlled. She has a history of heart failure, COPD, diabetes, gastrointestinal bleeding and severe mitral stenosis and severe tricuspid regurgitation. She has had mitral valvuloplasty on 2 occasions. The chest x-ray is abnormal with increased markings as well as right-sided pleural effusion. On examination, blood pressure 148/83 mm of mercury, temperature 97.1 degrees Fahrenheit. Breath sounds are reduced bilaterally with crackles. Heart sounds S1, S2 soft and I do not appreciate a diastolic murmur. Abdomen is soft. EXTREMITIES: Warm. No edema. IMPRESSION: 1. Rate controlled atrial fibrillation refractory to amiodarone with severe lung disease. 2. Valvular heart disease as described above. 3. The patient to be admitted with pulmonary symptoms at this time. This does not appear to be cardiac at this time. However, amiodarone should be discontinued permanently. There is no indication for amiodarone use especially looking at her chest x-ray. This could very well be an Amiodarone complication. She will continue with digoxin, if heart rate increases calcium channel iglesia can be used as an outpatient.
[2017-03-21 12:09] LABS: Glucose,Whole Blood 285 mg/dL (75-99)
[2017-03-21] MEDS: INSULIN LISPRO (humaLOG) 300 UNIT/3 ML VIAL SQ SCH ×3 (12:10→20:50)
--- NOTE | 2017-03-21 13:46 | HP ---
DATE OF ADMISSION: 03/21/2017 Attending physician: Dr. Morales Eubanks. Admitting physician: Dr. Ambrose Almeida. CHIEF COMPLAINT: Shortness of breath. HISTORY OF PRESENT ILLNESS: This is a 56-year-old was brought into the emergency room because of progressive shortness of breath for the past one week. The patient has known history of severe mitral stenosis and chronic congestive cardiac failure and COPD. The patient still smokes. The patient at present is fairly comfortable and in no distress, lying in bed at about 30 degree angle with no respiratory symptoms. The patient has diuresed fairly well with Lasix given in the emergency room. The patient does not take any Lasix at home. The patient denies any chest pain, angina, palpitations. The patient does have a history of chronic atrial fibrillation and she has been on amiodarone and still continues to be in atrial fibrillation. The patient had a CT of the chest done which shows no evidence of pulmonary embolism. The chest x-ray reveals pulmonary edema with a large right pleural effusion. The patient, apparently recently was in the hospital on 02/01 for pneumonia right lung. The patient does have a history of significant pulmonary hypertension, adequate left ventricular function. As mentioned above, severe mitral stenosis. She has had a previous mitral commisurectomy many years ago. She also has a history of rheumatic fever as a child. No history of any coronary artery disease. The patient is on anticoagulation. PAST SURGICAL HISTORY: Significant for mitral commissurectomy. PERSONAL HISTORY: Smoker. Alcohol none. ALLERGIES: POSSIBLY PENICILLIN. Medications at present include: 1. Atrovent and albuterol inhaler updrafts q.i.d. 2. Coumadin 1.5 mg at night. 3. [place] 10/325 q.48 8 hours. 4. Digoxin 125 daily. 5. Amiodarone 200 mg b.i.d. 6. Xanax 0.25 mg b.i.d. p.r.n. SOCIAL HISTORY: The patient is , lives with her spouse. FAMILY MEDICAL HISTORY: History of diabetes mellitus and cardiac ailments. No details much available at present. REVIEW OF SYSTEMS: NEURO: Denies any headaches, dizziness. No double vision, blurred vision. No symptoms of TIA, syncope, seizures. PSYCH: No anxiety, depression. CARDIAC: Denies chest pain, angina, palpitation, palpitations. RESPIRATORY: Present complaint of shortness of breath and orthopnea. Mild cough. No hemoptysis. GI: She had some nausea. No vomiting, abdominal pain, diarrhea, constipation, hematochezia, melena. : No symptoms of dysuria, hematuria, urgency, frequency. EXTREMITIES: Denies pain, edema. MUSCULOSKELETAL: Chronic lower back pain. CONSTITUTIONAL: No fever or chills. HEMATOLOGIC: No anemia. From the blood profile, it appears she has got significant iron deficiency anemia. No active bleeding. PHYSICAL EXAMINATION: A cachectic appearing, elderly female in no distress at present. Vital signs reveal temperature 98, pulse 75, respirations 20, blood pressure 125/70, pulse ox of 98% on 6 liters. HEENT: Normocephalic. NECK: No JVD. No carotid bruits. The patient has an old bruise on the right forehead, she says has been about a month now. Pupils are reactive. Nostrils are clear. Oral cavity is moist. Neck supple. CHEST EXAMINATION: Mild dullness to percussion almost half to two th[address] way up the right lung field. Lung iqbal reveal generalized decreased air flow. Few wet crackles at the left base. CARDIAC: Distant heart sounds. S1, S2 with no gallops. Systolic murmur at the apex also left sternal border. Cardiac rhythm is irregular. ABDOMEN: Soft, no palpable masses. Bowel sounds normal. No organomegaly. No abdominal bruits. Extremities reveal no edema. Good pulses, both upper and lower extremities. Neurologically awake, alert, oriented times three with well-coordinated movements. Laboratory assessment: CBC which revealed white count 23.9, hemoglobin 9.4, platelets ( ), MCV of 67.9. D-dimer 1.25 INR is normal at 1.3. Electrolytes are normal. GFR greater than 60, glucose 119, AST 39, troponin 0.064. BNP 11,000, albumin 3.1. Chest x-ray reveals pulmonary edema with large right pleural effusion. CT does not reveal any pulmonary embolism. Does show a right pleural effusion. EKG previous anteroseptal DC. Irregularly irregular rhythm, nonspecific ST changes. Probably dig effect. ASSESSMENT: 1. Acute congestive cardiac failure secondary to valvular heart disease. 2. Severe mitral stenosis. 3. Chronic atrial fibrillation. 4. Right pleural effusion. 5. Anemia probably iron deficiency. 6. History of diabetes mellitus. 7. Cachexia and mild malnutrition. 8. Chronic obstructive pulmonary disease. 9. Elevated troponins secondary to mismatch of oxygen and oxygen supply and demand. PLAN: The patient will be diuresed. May require right thoracentesis. The patient will be placed on Lovenox, discontinue IV heparin. Hold her Coumadin. Patient's condition was discussed with the patient. Prognosis remains guarded. Lettuce Cutter to see the patient. Patient is going to be Dr. Morales Eubanks will resume patient's care tomorrow. Prognosis remains guarded.
[2017-03-21 17:12] LABS: Glucose,Whole Blood 220 mg/dL (75-99)
[2017-03-21 20:24] LABS: Glucose,Whole Blood 330 mg/dL (75-99)
[2017-03-21] MEDS: ATORVASTATIN 40 MG TAB PO SCH (20:49)
[2017-03-21] MEDS ORDERED: WARFARIN 1 MG TAB PO SCH (21:00)
[2017-03-21] MEDS: traZODone HCL 50 MG TAB PO SCH (21:14)
[2017-03-22] MEDS: HYDROcodone/APAP 10-325MG 1 EACH TAB PO PRN ×4 (03:10→23:49)
[2017-03-22] MEDS: ALPRAZolam 0.25 MG TAB PO PRN ×2 (03:13→20:49)
[2017-03-22 06:18] LABS: Glucose,Whole Blood 156 mg/dL (75-99)
[2017-03-22 06:29] LABS: Basophils % (A) 0 %; CH 19.9; Eosinophils % (A) 0 %; HCT 27.2 % (34.0-46.0); HDW 3.22; HGB 8.1 gm/dL (11.4-16.0); Hypochromasia Marked; Luc # (Auto) 0.15; Luc % (Auto) 1; Lymphocytes # (A) 1.6 k/uL (1.0-4.8); Lymphocytes % (A) 10 %; MCH 20.5 pg (25.0-35.0); MCHC 29.7 g/dL (31.0-37.0); MCV 68.8 fL (80.0-100.0); Mean Platelet Volume 7.4; Microcytosis Marked; Monocytes # (A) 0.8 k/uL (0-1.0); Monocytes % (A) 5 %; Neutrophils # (A) 13.3 k/uL (1.3-7.7); Neutrophils % (A) 84 %; RBC 3.95 m/uL (3.80-5.40); WBC 15.8 k/uL (3.8-10.6); WBC (Perox) 16.44
[2017-03-22] MEDS: INSULIN LISPRO (humaLOG) 300 UNIT/3 ML VIAL SQ SCH ×4 (06:30→22:20)
[2017-03-22 06:33] LABS: Anion Gap 3 mmol/L; Blood Urea Nitrogen 23 mg/dL (7-17); Calcium 8.3 mg/dL (8.4-10.2); Carbon Dioxide 33 mmol/L (22-30); Chloride 99 mmol/L (98-107); Cholesterol 107 mg/dL (<200); Glucose 140 mg/dL (74-99); HDL Cholesterol 47 mg/dL (40-60); Non-African American GFR(MDRD) >60 (>60 ml/min/1.73 sqM); Potassium 4.7 mmol/L (3.5-5.1); Sodium 135 mmol/L (137-145); Triglycerides 79 mg/dL (<150)
[2017-03-22] MEDS: IPRATROPIUM-ALBUTEROL 3 ML NEB INHALATION SCH ×4 (08:09→19:50)
[2017-03-22] MEDS: ENOXAPARIN 40 MG/0.4 ML SYRINGE SQ SCH ×2 (09:17→20:50)
[2017-03-22] MEDS: predniSONE 10 MG TAB PO SCH ×3 (09:17→22:20)
[2017-03-22 10:59] LABS: Hemoglobin A1C 4.6 % (4.2-6.1)
[2017-03-22 12:21] LABS: Glucose,Whole Blood 171 mg/dL (75-99)
[2017-03-22] MEDS: hydrALAZINE HCL 25 MG TAB PO SCH ×2 (12:22→22:22)
--- NOTE | 2017-03-22 12:48 | P.PN ---
Subjective Principal diagnosis: Shortness of breath This is a 56-year-old female with known history of chronic persistent atrial fibrillation, COPD, pulmonary hypertension, severe mitral stenosis, anemia, renal failure, nicotine dependence, she presented to the hospital with symptoms of progressively worsening shortness of breath. She was initiated on IV Lasix in the emergency room and diuresed well from that. She does not take any Lasix on a regular basis at home. Patient was also found to have significant right-sided pleural effusion. Hemoglobin this morning 8.1, BUN 23, creatinine 0.7. Potassium 4.7. Iron less than 10, TIBC 210, iron saturation less than 4.8, ferritin 767. At pressure 110/50 with a heart rate in the 60s, 100% on 4 L of oxygen. BNP level 11,000. TSH 4.4. Dig 2.0 amiodarone was discontinued on admission here, Dr. Balderas felt that it was contributing to her worsening lung status. Her heart rate this morning was noted to dip down into the 40s at times. Dig level II.0, dig was held today. Resume INR obtained today, we will obtain daily PT/INRs and anticoagulate to maintain an INR in the range of 2-2.5. Her INR yesterday was 1.3. We'll give the patient 2 mg of Coumadin today. We will also start her on some IV Lasix. Objective - Vital Signs Vital signs: Vital Signs Temp 97.1 F L 03/22/17 12:00 Pulse 60 03/22/17 12:13 Resp 16 03/22/17 12:00 BP 109/56 03/22/17 12:00 Pulse Ox 100 03/22/17 12:00 Intake & Output 03/21/17 03/22/17 03/22/17 18:59 06:59 18:59 Intake Total 580 Output Total 2500 100 Balance -1919 Weight 43 kg Intake: Intake, IV Titration 250 Amount Azithromycin 500 mg In 250 Sodium Chloride 0.9% 250 ml @ 125 mls/hr IVPB [facility] Rx#:[id number] Oral 330 Output: Urine 2500 100 Uretheral ([place]) 1400 100 Other: Voiding Method Indwelling Catheter Indwelling Catheter # Voids 1 # Bowel Movements 1 - Exam PHYSICAL EXAMINATION: HEENT: Head is atraumatic, normocephalic. Pupils equal, round. Neck is supple. There is elevated jugular venous pressure. HEART EXAMINATION: R S1 and S2 irregularly irregular systolic and diastolic murmur heard CHEST EXAMINATION: Lungs reveal decreased air exchange throughout with fine rales to bilateral bases. ABDOMEN: Soft, nontender. Bowel sounds are heard. No organomegaly noted. EXTREMITIES: 2+ peripheral pulses with no evidence of peripheral edema and no calf tenderness noted. NEUROLOGIC patient is awake, alert and oriented -3. . - Labs CBC & Chem 7: 03/22/17 06:05 03/22/17 06:05 Labs: Abnormal Lab Results - Last 24 Hours (Table) 03/21/17 03/21/17 03/22/17 Range/Units 16:54 20:22 06:05 WBC 15.8 H (3.8-10.6) k/uL Hgb 8.1 L (11.4-16.0) gm/dL Hct 27.2 L (34.0-46.0) % MCV 68.8 L (80.0-100.0) fL MCH 20.5 L (25.0-35.0) pg MCHC 29.7 L (31.0-37.0) g/dL Neutrophils # 13.3 H (1.3-7.7) k/uL Sodium (137-145) mmol/L Carbon Dioxide (22-30) mmol/L BUN (7-17) mg/dL Glucose (74-99) mg/dL POC Glucose (mg/dL) 220 H 330 H (75-99) mg/dL Calcium (8.4-10.2) mg/dL 03/22/17 03/22/17 03/22/17 Range/Units 06:05 06:16 11:56 WBC (3.8-10.6) k/uL Hgb (11.4-16.0) gm/dL Hct (34.0-46.0) % MCV (80.0-100.0) fL MCH (25.0-35.0) pg MCHC (31.0-37.0) g/dL Neutrophils # (1.3-7.7) k/uL Sodium 135 L (137-145) mmol/L Carbon Dioxide 33 H (22-30) mmol/L BUN 23 H (7-17) mg/dL Glucose 140 H (74-99) mg/dL POC Glucose (mg/dL) 156 H 171 H (75-99) mg/dL Calcium 8.3 L (8.4-10.2) mg/dL Assessment and Plan (1) Diastolic CHF, acute on chronic Status: Acute (2) Severe mitral valve stenosis Status: Acute (3) COPD (chronic obstructive pulmonary disease) Status: Acute (4) Nicotine dependence Status: Acute (5) Iron deficiency anemia Status: Acute Plan: From cardiology's perspective, we will start the patient on IV Lasix 40 mg twice a day. Obtain daily PT/INR as well as lytes BUN and creatinine. We will give the patient 2 mg of Coumadin today. Monitor intake and output along with daily weights. DNP note has been reviewed, I agree with a documented findings and plan of care. Patient was seen and examined.
[2017-03-22 13:48] LABS: INR 1.2 (<1.1); Prothrombin Time 12.3 sec (9.0-12.0)
[2017-03-22] MEDS: FUROSEMIDE 10 MG/ML 4 ML VIAL IV SCH ×2 (14:12→20:50)
[2017-03-22] MEDS: HYDROmorphone 1 MG/ML 1 ML SYRINGE IVP PRN ×2 (14:21→20:50)
[2017-03-22 16:55] LABS: Glucose,Whole Blood 139 mg/dL (75-99)
[2017-03-22] MEDS: ONDANSETRON 4 MG/2 ML VIAL IVP PRN ×2 (17:20→23:50)
[2017-03-22] MEDS ORDERED: WARFARIN 2 MG TAB PO ONE (18:00)
--- NOTE | 2017-03-22 18:01 | PN ---
DATE OF SERVICE: 03/22/2017 This is a 56-year-old white female who was admitted by Dr. Almeida, who was covering me this weekend. Patient was brought to the emergency room because of progressive shortness of breath for the past one week. The patient had been getting progressively worse and she became extremely weak and dyspneic. She is known to have chronic congestive heart failure and also chronic atrial fibrillation. In the emergency room she was found to be in acute on chronic congestive heart failure. She is also known to have chronic obstructive pulmonary disease. She has diabetes mellitus. Patient was treated aggressively with diuretics in the ER and patient was then admitted to the hospital for further evaluation and treatment. Patient has had multiple hospitalizations for similar situations and she is known to have advanced mitral stenosis; she has had valvuloplasty in the past. She is also known to have anemia, possibly due to GI blood loss and also due to chronic illness. Patient had a CT angiogram in the ER which ruled out pulmonary embolism. The patient was admitted to Telemetry and her heart is being monitored. Patient was seen by [facility] in consultation. Today patient seems to be slightly better. She is more comfortable; using nasal oxygen constantly. Patient has been placed back on her previous home medications and also she is being treated aggressively with diuretics. Her diabetes is being controlled with NovoLog sliding scale. On examination, the patient is alert and oriented. She is using nasal oxygen constantly. She is extremely dyspneic on exertion. Her heart is in atrial fibrillation with a controlled ventricular rate. Vital signs are otherwise stable. Lungs reveal diminished breath sound over both bases with moist rales heard bilaterally. Abdomen is soft and nontender. There is no mass palpable. Examination of the lower extremities reveals minimal bilateral pitting edema. Neurologic examination does not reveal any localizing signs. IMPRESSION: 1. Acute on chronic congestive heart failure, both diastolic and systolic. 2. Chronic atrial fibrillation. 3. Advanced mitral stenosis. 4. Chronic anemia due possibly to past gastrointestinal blood loss and also due to chronic illness. 5. Chronic obstructive pulmonary disease. 6. Right pleural effusion. PLAN: Will continue current medications. Cardiology is also following the patient. Overall prognosis is guarded. The diagnoses, prognosis and therapeutic plans were discussed in detail with the patient.
[2017-03-22] MEDS: ATORVASTATIN 40 MG TAB PO SCH (20:48)
[2017-03-22 20:59] LABS: Glucose,Whole Blood 231 mg/dL (75-99)
[2017-03-22] MEDS: traZODone HCL 50 MG TAB PO SCH (22:21)
--- NOTE | 2017-03-22 22:59 | P.CONS ---
History of Present Illness - Reason for Consult Consult date: 03/22/17 - Chief Complaint Shortness of breath - History of Present Illness 56-year-old female who has Gold stage IV COPD that is oxygen and inhaled steroid dependent presents to hospital with increasing weakness and shortness of breath. She's not been feeling well for several days. Nose that she's having ongoing difficulties with her pulmonary status. This thought to have another episode of pneumonia. She has significant weakness sputum production and fever. Fortunately not requiring ICU stay at this time. She feels slightly better since coming to hospital. But as for oxygens even working. We prove that she is receiving oxygen at 4 L but she is still somewhat short of breath. She feels quite poorly overall. She has mild cough with scant sputum production. At admission she was found evidence of atrial fibrillation was rate controlled she has not responded well to amiodarone in the past. Is noted she complains a beget weakness but denies chills or rigors. Review of Systems HEENT:Denies headache or acute visual change. Denies sinus or mouth discomforts. Denies neck stiffness or pain. Denies significant oral cavity pain. Denies difficulty on swallowing. Lungs: Persistent shortness of breath with cough no hemoptysis but positive serum production above her baseline Cardiovascular: Denies chest pain, chest wall pain, orthopnea, or syncope but has dyspnea on exertion Gastrointestinal:Denies nausea, vomiting, diarrhea, constipation, hematemesis, melena, hematochezia. No no significant change of bowel habit noticed. Musculoskeletal: denies significant myalgias or arthralgias. No new joint swelling. Denies new back pain. Skin: Denies new rash or lesions. No new ulcers or wounds are related.. Neuro: Denies headache or visual change. Became very weak and had some confusion which is improving. Psychiatric: Chronic anxiety Endocrine: Fatigue and has had some weight loss Past Medical History Past Medical History: Atrial Fibrillation, Asthma, Heart Failure, COPD, Diabetes Mellitus, GERD/Reflux, GI Bleed, Liver Disease, Pneumonia, Renal Disease, Skin Disorder Additional Past Medical History / Comment(s): Severe mitral valve stenosis and severe tricuspid valve regurgitation, current decub lower back per pt, UTI with sepsis, anemia, elevated liver enzymes in the past, chronic renal dx, Afib and has had RVR in past. History of Any Multi-Drug Resistant Organisms: VRE Year Discovered:: 1/2/17 MDRO Source:: Urine Past Surgical History: Hysterectomy Additional Past Surgical History / Comment(s): 2 mitral valve balloon valvuloplasty, colonoscopy, PICC line insertion (since removed). Additional Past Anesthesia/Blood Transfusion Reaction / Comm: Pt has received blood in past without reaction. Past Psychological History: Anxiety Additional Psychological History / Comment(s): Single. Lives with adult daughter and her spouse. Has nebulizer and glucose monitor. no experience or international travel. No animal exposures. Positive tobacco use. No current alcohol or injection drug use Smoking Status: Current every day smoker Past Alcohol Use History: None Reported Additional Past Alcohol Use History / Comment(s): states heavier ETOH use in teens and 20's, none recent Past Drug Use History: None Reported - Past Family History Father Family Medical History: Dementia Additional Family Medical History / Comment(s): Father is in his 80's Mother Family Medical History: Myocardial Infarction (MO) Additional Family Medical History / Comment(s): valve disorder. Mother of a MO in her 30's Medications and Allergies Home Medications and Allergies Comment(s): Current Medications Hydrocodone Bitart/Acetaminophen ([place] 10) 1 each PO Q6H PRN PRN Reason: Pain Last Admin: 03/22/17 16:49 Dose: 1 each Albuterol/Ipratropium (Duoneb 0.5 Mg-3 Mg/3 Ml Soln) 3 ml INHALATION RT-QID MARY CARMEN Last Admin: 03/22/17 19:50 Dose: 3 ml Albuterol/Ipratropium (Duoneb 0.5 Mg-3 Mg/3 Ml Soln) 3 ml INHALATION RT-Q2H PRN PRN Reason: Shortness Of Breath Or Wheezing Alprazolam (Xanax) 0.25 mg PO BID PRN PRN Reason: Anxiety Last Admin: 03/22/17 20:49 Dose: 0.25 mg Atorvastatin Calcium (Lipitor) 40 mg PO HS MARY CARMEN Last Admin: 03/22/17 20:48 Dose: 40 mg Enoxaparin Sodium (Lovenox) 40 mg SQ Q12HR MARY CARMEN Last Admin: 03/22/17 20:50 Dose: 40 mg Furosemide (Lasix) 40 mg IV Q12HR MARY CARMEN Last Admin: 03/22/17 20:50 Dose: 40 mg Hydralazine HCl (Apresoline) 25 mg PO BID [facility] Last Admin: 03/22/17 22:22 Dose: 25 mg Hydromorphone HCl (Dilaudid) 1 mg IVP Q4HR PRN PRN Reason: Pain Last Admin: 03/22/17 20:50 Dose: 1 mg Insulin Human Lispro (Humalog) 0 unit SQ ACHS MARY CARMEN PRN Reason: Protocol Last Admin: 03/22/17 22:20 Dose: 3 unit Miscellaneous Information (Rx Info: Iv Contrast Was Given) 1 each MISCELLANE DAILY PRN PRN Reason: Per Protocol Stop: 03/23/17 02:28 Morphine Sulfate (Morphine Sulfate (Inj)) 2 mg IVP Q5M PRN PRN Reason: Chest Pain Nitroglycerin (Nitrostat) 0.4 mg SUBLINGUAL Q5M PRN PRN Reason: Chest Pain Ondansetron HCl (Zofran) 4 mg IVP Q6HR PRN PRN Reason: Nausea And Vomiting Last Admin: 03/22/17 17:20 Dose: 4 mg Prednisone () 10 mg PO TID [facility] Last Admin: 03/22/17 22:20 Dose: 10 mg Trazodone HCl (Desyrel) 50 mg PO HS [facility] Last Admin: 03/22/17 22:21 Dose: Not Given Home Medications Medication Instructions Recorded Confirmed Type ALPRAZolam [Xanax] 0.25 mg PO BID PRN 05/19/15 03/21/17 History HYDROcodone/APAP 10-325MG [[place] 1 tab PO Q8H PRN 05/19/15 03/21/17 History 10-325] Ipratropium/Albuterol Sulfate 1 puff INHALATION RT-QID PRN 05/19/15 03/21/17 History [Combivent Respimat Inhaler] Albuterol Nebulized [Ventolin 2.5 mg INHALATION RT-QID PRN 02/01/17 03/21/17 History Nebulized] Amiodarone [Cordarone] 200 mg PO BID 02/01/17 03/21/17 History Digoxin [Digitek] 125 mcg PO DAILY 02/01/17 03/21/17 History Ipratropium Nebulized [Atrovent 0.5 mg INHALATION RT-QID PRN 02/01/17 03/21/17 History Nebulized] Warfarin [Coumadin] 1.5 mg PO HS 02/01/17 03/21/17 History Allergies Allergy/AdvReac Type Severity Reaction Status Date / Time aspirin Allergy Unknown Verified 01/31/17 22:23 Physical Exam Vitals: Vital Signs Temp Pulse Pulse Resp BP BP Pulse Ox 03/22/17 20:01 64 16 03/22/17 19:50 96.7 F L 64 71 18 111/55 100 03/22/17 16:19 97 F L 68 20 106/60 100 03/22/17 16:10 64 16 03/22/17 15:58 64 16 94 L 03/22/17 12:13 60 03/22/17 12:00 97.1 F L 70 16 109/56 100 03/22/17 11:59 60 03/22/17 09:00 97 F L 70 16 105/51 99 03/22/17 08:27 64 03/22/17 08:09 52 L 03/22/17 03:56 97.7 F 68 22 121/58 97 03/22/17 00:00 97.7 F 58 L 18 110/59 98 Intake and Output 03/22/17 03/22/17 03/22/17 06:59 14:59 22:59 Intake Total 120 120 Output Total 100 500 500 Balance -100 -380 -380 Intake: Oral 120 120 Output: Urine 100 500 500 Uretheral ([place]) 100 Other: Voiding Method Indwelling Catheter Indwelling Catheter Indwelling Catheter # Voids 1 Weight 43 kg 43 kg Patient Weight 03/23/17 06:59 Weight 43 kg 56-year-old woman who looks much older than her stated age. She is chronically ill. HEENT: Anicteric conjunctiva are pink and moist nasal mucosa grossly intact without significant lesions, there is no thrush. Poor dentition Neck: The neck is supple without significant lymphadenopathy or thyromegaly. Lungs: Symmetrical air entry with wheezes scattered throughout the lung iqbal. Basilar crackles are heard. No dullness or egophony Heart: Irregularly irregular no S3 loud S4 There is no significant murmur click or rub, PMI was nondisplaced. Abdomen: Positive bowel sounds soft and nontender without palpable masses or organomegaly. There was no guarding or rebound. Extremities: The extremities have just trace edema. She has no tenderness over the joints. Skin the patient has changes of diabetes her lower extremities however she has a difficulty with chronically picking at her skin and has innumerable lesions that healed over arms and legs at this time. None of them are open are grossly draining at this time Neuro: She is awake alert oriented to person place and time and does not exhibit any acute gross focal sensory motor deficits Results CBC & Chem 7: 03/22/17 06:05 03/22/17 06:05 Labs: Abnormal Lab Results - Last 24 Hours (Table) 03/22/17 03/22/17 03/22/17 Range/Units 06:05 06:05 06:05 WBC 15.8 H (3.8-10.6) k/uL Hgb 8.1 L (11.4-16.0) gm/dL Hct 27.2 L (34.0-46.0) % MCV 68.8 L (80.0-100.0) fL MCH 20.5 L (25.0-35.0) pg MCHC 29.7 L (31.0-37.0) g/dL Neutrophils # 13.3 H (1.3-7.7) k/uL PT 12.3 H (9.0-12.0) sec Sodium 135 L (137-145) mmol/L Carbon Dioxide 33 H (22-30) mmol/L BUN 23 H (7-17) mg/dL Glucose 140 H (74-99) mg/dL POC Glucose (mg/dL) (75-99) mg/dL Calcium 8.3 L (8.4-10.2) mg/dL 03/22/17 03/22/17 03/22/17 Range/Units 06:16 11:56 16:38 WBC (3.8-10.6) k/uL Hgb (11.4-16.0) gm/dL Hct (34.0-46.0) % MCV (80.0-100.0) fL MCH (25.0-35.0) pg MCHC (31.0-37.0) g/dL Neutrophils # (1.3-7.7) k/uL PT (9.0-12.0) sec Sodium (137-145) mmol/L Carbon Dioxide (22-30) mmol/L BUN (7-17) mg/dL Glucose (74-99) mg/dL POC Glucose (mg/dL) 156 H 171 H 139 H (75-99) mg/dL Calcium (8.4-10.2) mg/dL 03/22/17 Range/Units 20:56 WBC (3.8-10.6) k/uL Hgb (11.4-16.0) gm/dL Hct (34.0-46.0) % MCV (80.0-100.0) fL MCH (25.0-35.0) pg MCHC (31.0-37.0) g/dL Neutrophils # (1.3-7.7) k/uL PT (9.0-12.0) sec Sodium (137-145) mmol/L Carbon Dioxide (22-30) mmol/L BUN (7-17) mg/dL Glucose (74-99) mg/dL POC Glucose (mg/dL) 231 H (75-99) mg/dL Calcium (8.4-10.2) mg/dL Laboratory Results WBC 15.8 k/uL (3.8-10.6) H 03/22/17 06:05 RBC 3.95 m/uL (3.80-5.40) 03/22/17 06:05 Hgb 8.1 gm/dL (11.4-16.0) L 03/22/17 06:05 Hct 27.2 % (34.0-46.0) L 03/22/17 06:05 MCV 68.8 fL (80.0-100.0) L 03/22/17 06:05 MCH 20.5 pg (25.0-35.0) L 03/22/17 06:05 MCHC 29.7 g/dL (31.0-37.0) L 03/22/17 06:05 RDW 15.0 % (11.5-15.5) 03/22/17 06:05 Plt Count 211 k/uL (150-450) 03/22/17 06:05 Neutrophils % 84 % 03/22/17 06:05 Lymphocytes % 10 % 03/22/17 06:05 Monocytes % 5 % 03/22/17 06:05 Eosinophils % 0 % 03/22/17 06:05 Basophils % 0 % 03/22/17 06:05 Neutrophils # 13.3 k/uL (1.3-7.7) H 03/22/17 06:05 Lymphocytes # 1.6 k/uL (1.0-4.8) 03/22/17 06:05 Monocytes # 0.8 k/uL (0-1.0) 03/22/17 06:05 Eosinophils # 0.0 k/uL (0-0.7) 03/22/17 06:05 Basophils # 0.0 k/uL (0-0.2) 03/22/17 06:05 Hypochromasia Marked 03/22/17 06:05 Poikilocytosis Slight 03/21/17 01:21 Microcytosis Marked 03/22/17 06:05 PT 12.3 sec (9.0-12.0) H 03/22/17 06:05 INR 1.2 (<1.1) 03/22/17 06:05 APTT 31.5 sec (22.0-30.0) H 03/21/17 09:02 D-Dimer 1.25 mg/L FEU (<0.60) H 03/21/17 01:21 Sodium 135 mmol/L (137-145) L 03/22/17 06:05 Potassium 4.7 mmol/L (3.5-5.1) 03/22/17 06:05 Chloride 99 mmol/L (98-107) 03/22/17 06:05 Carbon Dioxide 33 mmol/L (22-30) H 03/22/17 06:05 Anion Gap 3 mmol/L 03/22/17 06:05 BUN 23 mg/dL (7-17) H 03/22/17 06:05 Creatinine 0.72 mg/dL (0.52-1.04) 03/22/17 06:05 Est GFR (MDRD) Af Amer >60 (>60 ml/min/1.73 sqM) 03/22/17 06:05 Est GFR (MDRD) Non-Af >60 (>60 ml/min/1.73 sqM) 03/22/17 06:05 Glucose 140 mg/dL (74-99) H 03/22/17 06:05 POC Glucose (mg/dL) 231 mg/dL (75-99) H 03/22/17 20:56 POC Glu Tin Dipper ID Zara Cazares 03/22/17 20:[address] Glu mg/dL 85 mg/dL 03/21/17 09:02 Hemoglobin A1c 4.6 % (4.2-6.1) 03/21/17 09:02 Calcium 8.3 mg/dL (8.4-10.2) L 03/22/17 06:05 Iron <10 ug/dL (37-170) L 03/21/17 09:02 TIBC 210 ug/dL (265-497) L 03/21/17 09:02 % Saturation <4.8 % (20-50) L 03/21/17 09:02 Ferritin 767 ng/mL (11-264) H 03/21/17 09:02 Total Bilirubin 1.1 mg/dL (0.2-1.3) 03/21/17 01:21 AST 39 U/L (14-36) H 03/21/17 01:21 ALT 33 U/L (9-52) 03/21/17 01:21 Alkaline Phosphatase 126 U/L (38-126) 03/21/17 01:21 Total Creatine Kinase 53 U/L (30-135) 03/21/17 09:02 CK-MB (CK-2) 2.2 ng/mL (0.0-2.4) 03/21/17 09:02 CK-MB (CK-2) Rel Index 4.2 03/21/17 09:02 Troponin I 0.051 ng/mL (0.000-0.034) H* 03/21/17 09:02 NT-Pro-B Natriuret Pep 92210 pg/mL 03/21/17 01:21 Total Protein 6.1 g/dL (6.3-8.2) L 03/21/17 01:21 Albumin 3.1 g/dL (3.5-5.0) L 03/21/17 01:21 Triglycerides 79 mg/dL (<150) 03/22/17 06:05 Cholesterol 107 mg/dL (<200) 03/22/17 06:05 LDL Cholesterol, Calc 44 mg/dL (0-99) 03/22/17 06:05 HDL Cholesterol 47 mg/dL (40-60) 03/22/17 06:05 TSH 4.470 mIU/L (0.465-4.680) 03/21/17 09:02 Digoxin 2.0 ng/mL 03/21/17 09:02 Assessment and Plan (1) COPD (chronic obstructive pulmonary disease) Narrative/Plan: 56-year-old female who is advanced COPD is oxygen and inhaled steroid dependent carefully continues to smoke. Presents to Hospital feeling very weak and ill. His been seen by cardiology. His been instructed to take no further amiodarone to ensure there is no toxicity to her pulmonary system from this medication. Rate controlled with digitalis and calcium channel blockers is being utilized. She still feels quite short of breath. Receiving multiple respiratory treatments. As well as oral steroid therapy. She may feel slowly better than admission. She has received some diuresis. At this time with exacerbation of her COPD and her history of MSSA, ceftriaxone will be given while cultures are arm process. Her leukocytosis is multifactorial including her steroid therapy and acute exacerbation of her underlying lung disease. Smoking cessation is again discussed. She is again reassured that her oxygen is flowing at the 4 L rate. Status: Acute (2) Leukocytosis Status: Acute
[2017-03-22] MEDS: cefTRIAXone 2,000 MG in SODIUM CHLORIDE 0.9% 100 ML IVPB SCH (23:50)
[2017-03-23] MEDS: traZODone HCL 50 MG TAB PO SCH ×2 (00:38→21:35)
[2017-03-23] MEDS: HYDROmorphone 1 MG/ML 1 ML SYRINGE IVP PRN ×4 (02:57→21:36)
[2017-03-23 05:52] LABS: Glucose,Whole Blood 129 mg/dL (75-99)
[2017-03-23] MEDS: INSULIN LISPRO (humaLOG) 300 UNIT/3 ML VIAL SQ SCH ×4 (06:01→21:36)
[2017-03-23 06:06] LABS: Basophils % (A) 0 %; CH 19.7; CHCM 28.7; Eosinophils % (A) 0 %; HCT 28.1 % (34.0-46.0); HDW 3.19; HGB 7.9 gm/dL (11.4-16.0); Hypochromasia Marked; Luc # (Auto) 0.12; Luc % (Auto) 1; Lymphocytes % (A) 6 %; MCH 19.3 pg (25.0-35.0); MCHC 27.9 g/dL (31.0-37.0); MCV 69.2 fL (80.0-100.0); Microcytosis Moderate; Monocytes # (A) 0.5 k/uL (0-1.0); Monocytes % (A) 3 %; Neutrophils # (A) 13.8 k/uL (1.3-7.7); Neutrophils % (A) 90 %; RBC 4.07 m/uL (3.80-5.40); RDW 15.1 % (11.5-15.5); WBC 15.5 k/uL (3.8-10.6); WBC (Perox) 16.83
[2017-03-23 06:14] LABS: INR 1.4 (<1.1); Prothrombin Time 13.6 sec (9.0-12.0)
[2017-03-23] MEDS: HYDROcodone/APAP 10-325MG 1 EACH TAB PO PRN ×3 (06:18→21:36)
[2017-03-23 06:20] LABS: Anion Gap 6 mmol/L; Blood Urea Nitrogen 26 mg/dL (7-17); Calcium 8.6 mg/dL (8.4-10.2); Carbon Dioxide 35 mmol/L (22-30); Chloride 94 mmol/L (98-107); Glucose 120 mg/dL (74-99); Non-African American GFR(MDRD) >60 (>60 ml/min/1.73 sqM); Sodium 135 mmol/L (137-145)
[2017-03-23] MEDS: IPRATROPIUM-ALBUTEROL 3 ML NEB INHALATION SCH ×4 (08:10→20:00)
[2017-03-23] MEDS: ALPRAZolam 0.25 MG TAB PO PRN (09:13)
[2017-03-23] MEDS: FUROSEMIDE 10 MG/ML 4 ML VIAL IV SCH ×2 (09:13→21:36)
[2017-03-23] MEDS: hydrALAZINE HCL 25 MG TAB PO SCH ×2 (09:13→21:35)
[2017-03-23] MEDS: ENOXAPARIN 40 MG/0.4 ML SYRINGE SQ SCH ×2 (09:13→21:36)
[2017-03-23] MEDS: ONDANSETRON 4 MG/2 ML VIAL IVP PRN (09:14)
[2017-03-23] MEDS: predniSONE 10 MG TAB PO SCH ×3 (09:14→21:35)
--- NOTE | 2017-03-23 11:09 | P.PN ---
Subjective Principal diagnosis: Shortness of breath This is a 56-year-old female with known history of chronic persistent atrial fibrillation, COPD, pulmonary hypertension, severe mitral stenosis, anemia, renal failure, nicotine dependence, she presented to the hospital with symptoms of progressively worsening shortness of breath. She was initiated on IV Lasix in the emergency room and diuresed well from that. She does not take any Lasix on a regular basis at home. Patient was also found to have significant right-sided pleural effusion. Hemoglobin this morning 7.9 BUN 26, creatinine 0.8. Potassium 5.0. was initiated yesterday on IV Lasix, she' s diuresed well through the night last night and her weight today is down 3 kg. She does state that she feels her breathing is improved. Objective - Vital Signs Vital signs: Vital Signs Temp 97.1 F L 03/23/17 09:11 Pulse 61 03/23/17 09:11 Resp 16 03/23/17 09:11 BP 121/58 03/23/17 09:11 Pulse Ox 100 03/23/17 09:11 Intake & Output 03/22/17 03/23/17 03/23/17 18:59 06:59 18:59 Intake Total 240 100 90 Output Total 1000 1800 Balance -760 -1700 90 Weight 43 kg 41.4 kg Intake: Intake, IV Titration 100 Amount cefTRIAXone 2,000 mg In 100 Sodium Chloride 0.9% 100 ml @ 100 mls/hr IVPB [facility] Rx#:[id number] Oral 240 90 Output: Urine 1000 1800 Other: Voiding Method Indwelling Catheter Indwelling Catheter Indwelling Catheter - Exam PHYSICAL EXAMINATION: HEENT: Head is atraumatic, normocephalic. Pupils equal, round. Neck is supple. There is elevated jugular venous pressure. HEART EXAMINATION: R S1 and S2 irregularly irregular systolic and diastolic murmur heard CHEST EXAMINATION: Lungs reveal decreased air exchange throughout with fine rales to bilateral bases. ABDOMEN: Soft, nontender. Bowel sounds are heard. No organomegaly noted. EXTREMITIES: 2+ peripheral pulses with no evidence of peripheral edema and no calf tenderness noted. NEUROLOGIC patient is awake, alert and oriented -3. . - Labs CBC & Chem 7: 03/23/17 05:43 03/23/17 05:43 Labs: Abnormal Lab Results - Last 24 Hours (Table) 05/03/22/17 03/22/17 Range/Units 06:05 11:56 16:38 WBC (3.8-10.6) k/uL Hgb (11.4-16.0) gm/dL Hct (34.0-46.0) % MCV (80.0-100.0) fL MCH (25.0-35.0) pg MCHC (31.0-37.0) g/dL Neutrophils # (1.3-7.7) k/uL PT 12.3 H (9.0-12.0) sec Sodium (137-145) mmol/L Chloride (98-107) mmol/L Carbon Dioxide (22-30) mmol/L BUN (7-17) mg/dL Glucose (74-99) mg/dL POC Glucose (mg/dL) 171 H 139 H (75-99) mg/dL 03/22/17 03/23/17 03/23/17 Range/Units 20:56 05:43 05:43 WBC 15.5 H (3.8-10.6) k/uL Hgb 7.9 L (11.4-16.0) gm/dL Hct 28.1 L (34.0-46.0) % MCV 69.2 L (80.0-100.0) fL MCH 19.3 L (25.0-35.0) pg MCHC 27.9 L (31.0-37.0) g/dL Neutrophils # 13.8 H (1.3-7.7) k/uL PT (9.0-12.0) sec Sodium 135 L (137-145) mmol/L Chloride 94 L (98-107) mmol/L Carbon Dioxide 35 H (22-30) mmol/L BUN 26 H (7-17) mg/dL Glucose 120 H (74-99) mg/dL POC Glucose (mg/dL) 231 H (75-99) mg/dL 03/23/17 03/23/17 Range/Units 05:43 05:51 WBC (3.8-10.6) k/uL Hgb (11.4-16.0) gm/dL Hct (34.0-46.0) % MCV (80.0-100.0) fL MCH (25.0-35.0) pg MCHC (31.0-37.0) g/dL Neutrophils # (1.3-7.7) k/uL PT 13.6 H (9.0-12.0) sec Sodium (137-145) mmol/L Chloride (98-107) mmol/L Carbon Dioxide (22-30) mmol/L BUN (7-17) mg/dL Glucose (74-99) mg/dL POC Glucose (mg/dL) 129 H (75-99) mg/dL Assessment and Plan (1) Diastolic CHF, acute on chronic Status: Acute (2) Severe mitral valve stenosis Status: Acute (3) COPD (chronic obstructive pulmonary disease) Status: Acute (4) Nicotine dependence Status: Acute (5) Iron deficiency anemia Status: Acute Plan: From cardiology's perspective, continue IV Lasix for 24 hours. Repeat chest x- ray in the morning. DNP note has been reviewed, I agree with a documented findings and plan of care. Patient was seen and examined.
[2017-03-23 11:49] LABS: Glucose,Whole Blood 149 mg/dL (75-99)
[2017-03-23 16:50] LABS: Glucose,Whole Blood 129 mg/dL (75-99)
[2017-03-23] MEDS ORDERED: WARFARIN 3 MG TAB PO ONE (18:00)
--- NOTE | 2017-03-23 20:29 | P.PN ---
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 She's not been feeling well for several days. Nose that she's having ongoing difficulties with her pulmonary status. This thought to have another episode of pneumonia. She has significant weakness sputum production and fever. Fortunately not requiring ICU stay at this time. She feels slightly better since coming to hospital. But as for oxygens even working. We prove that she is receiving oxygen at 4 L but she is still somewhat short of breath. She feels quite poorly overall. She has mild cough with scant sputum production. At admission she was found evidence of atrial fibrillation was rate controlled she has not responded well to amiodarone in the past. Is noted she complains a beget weakness but denies chills or rigors. Patient is now had a variant diuresis. Is feeling somewhat better. Still very weak. Objective - Vital Signs Vital signs: Vital Signs Temp 97.8 F 03/23/17 15:50 Pulse 72 03/23/17 20:10 Resp 20 03/23/17 15:50 BP 118/57 03/23/17 15:50 Pulse Ox 100 03/23/17 15:50 Intake & Output 03/23/17 03/23/17 03/24/17 06:59 18:59 06:59 Intake Total 100 405 Output Total 1800 925 Balance -1700 -520 Weight 41.4 kg Intake: Intake, IV Titration 100 Amount cefTRIAXone 2,000 mg In 100 Sodium Chloride 0.9% 100 ml @ 100 mls/hr IVPB [facility] Rx#:[id number] Oral 405 Output: Urine 1800 925 Other: Voiding Method Indwelling Catheter Indwelling Catheter - Exam 56-year-old woman who looks much older than her stated age. She is chronically ill. HEENT: Anicteric conjunctiva are pink and moist nasal mucosa grossly intact without significant lesions, there is no thrush. Poor dentition Neck: The neck is supple without significant lymphadenopathy or thyromegaly. Lungs: Symmetrical air entry with wheezes scattered throughout the lung iqbal. Basilar crackles are heard. No dullness or egophony Heart: Irregularly irregular no S3 loud S4 There is no significant murmur click or rub, PMI was nondisplaced. Abdomen: Positive bowel sounds soft and nontender without palpable masses or organomegaly. There was no guarding or rebound. Extremities: The extremities have just trace edema. She has no tenderness over the joints. Skin the patient has changes of diabetes her lower extremities however she has a difficulty with chronically picking at her skin and has innumerable lesions that healed over arms and legs at this time. None of them are open are grossly draining at this time Neuro: She is awake alert oriented to person place and time and does not exhibit any acute gross focal sensory motor deficits - Labs CBC & Chem 7: 03/23/17 05:43 03/23/17 05:43 Labs: Abnormal Lab Results - Last 24 Hours (Table) 03/22/17 03/23/17 03/23/17 Range/Units 20:56 05:43 05:43 WBC 15.5 H (3.8-10.6) k/uL Hgb 7.9 L (11.4-16.0) gm/dL Hct 28.1 L (34.0-46.0) % MCV 69.2 L (80.0-100.0) fL MCH 19.3 L (25.0-35.0) pg MCHC 27.9 L (31.0-37.0) g/dL Neutrophils # 13.8 H (1.3-7.7) k/uL PT (9.0-12.0) sec Sodium 135 L (137-145) mmol/L Chloride 94 L (98-107) mmol/L Carbon Dioxide 35 H (22-30) mmol/L BUN 26 H (7-17) mg/dL Glucose 120 H (74-99) mg/dL POC Glucose (mg/dL) 231 H (75-99) mg/dL 03/23/17 03/23/17 03/23/17 Range/Units 05:43 05:51 11:46 WBC (3.8-10.6) k/uL Hgb (11.4-16.0) gm/dL Hct (34.0-46.0) % MCV (80.0-100.0) fL MCH (25.0-35.0) pg MCHC (31.0-37.0) g/dL Neutrophils # (1.3-7.7) k/uL PT 13.6 H (9.0-12.0) sec Sodium (137-145) mmol/L Chloride (98-107) mmol/L Carbon Dioxide (22-30) mmol/L BUN (7-17) mg/dL Glucose (74-99) mg/dL POC Glucose (mg/dL) 129 H 149 H (75-99) mg/dL 03/23/17 Range/Units 16:47 WBC (3.8-10.6) k/uL Hgb (11.4-16.0) gm/dL Hct (34.0-46.0) % MCV (80.0-100.0) fL MCH (25.0-35.0) pg MCHC (31.0-37.0) g/dL Neutrophils # (1.3-7.7) k/uL PT (9.0-12.0) sec Sodium (137-145) mmol/L Chloride (98-107) mmol/L Carbon Dioxide (22-30) mmol/L BUN (7-17) mg/dL Glucose (74-99) mg/dL POC Glucose (mg/dL) 129 H (75-99) mg/dL Laboratory Results WBC 15.5 k/uL (3.8-10.6) H 03/23/17 05:43 RBC 4.07 m/uL (3.80-5.40) 03/23/17 05:43 Hgb 7.9 gm/dL (11.4-16.0) L 03/23/17 05:43 Hct 28.1 % (34.0-46.0) L 03/23/17 05:43 MCV 69.2 fL (80.0-100.0) L 03/23/17 05:43 MCH 19.3 pg (25.0-35.0) L 03/23/17 05:43 MCHC 27.9 g/dL (31.0-37.0) L 03/23/17 05:43 RDW 15.1 % (11.5-15.5) 03/23/17 05:43 Plt Count 228 k/uL (150-450) 03/23/17 05:43 Neutrophils % 90 % 03/23/17 05:43 Lymphocytes % 6 % 03/23/17 05:43 Monocytes % 3 % 03/23/17 05:43 Eosinophils % 0 % 03/23/17 05:43 Basophils % 0 % 03/23/17 05:43 Neutrophils # 13.8 k/uL (1.3-7.7) H 03/23/17 05:43 Lymphocytes # 1.0 k/uL (1.0-4.8) 03/23/17 05:43 Monocytes # 0.5 k/uL (0-1.0) 03/23/17 05:43 Eosinophils # 0.0 k/uL (0-0.7) 03/23/17 05:43 Basophils # 0.0 k/uL (0-0.2) 03/23/17 05:43 Hypochromasia Marked 03/23/17 05:43 Poikilocytosis Slight 03/21/17 01:21 Microcytosis Moderate 03/23/17 05:43 PT 13.6 sec (9.0-12.0) H 03/23/17 05:43 INR 1.4 (<1.1) 03/23/17 05:43 APTT 31.5 sec (22.0-30.0) H 03/21/17 09:02 D-Dimer 1.25 mg/L FEU (<0.60) H 03/21/17 01:21 Sodium 135 mmol/L (137-145) L 03/23/17 05:43 Potassium 5.0 mmol/L (3.5-5.1) 03/23/17 05:43 Chloride 94 mmol/L (98-107) L 03/23/17 05:43 Carbon Dioxide 35 mmol/L (22-30) H 03/23/17 05:43 Anion Gap 6 mmol/L 03/23/17 05:43 BUN 26 mg/dL (7-17) H 03/23/17 05:43 Creatinine 0.87 mg/dL (0.52-1.04) 03/23/17 05:43 Est GFR (MDRD) Af Amer >60 (>60 ml/min/1.73 sqM) 03/23/17 05:43 Est GFR (MDRD) Non-Af >60 (>60 ml/min/1.73 sqM) 03/23/17 05:43 Glucose 120 mg/dL (74-99) H 03/23/17 05:43 POC Glucose (mg/dL) 129 mg/dL (75-99) H 03/23/17 16:47 POC Glu [employer] [employer] ID Adry Charles 03/23/17 16:[address] Glu mg/dL 85 mg/dL 03/21/17 09:02 Hemoglobin A1c 4.6 % (4.2-6.1) 03/21/17 09:02 Calcium 8.6 mg/dL (8.4-10.2) 03/23/17 05:43 Iron <10 ug/dL (37-170) L 03/21/17 09:02 TIBC 210 ug/dL (265-497) L 03/21/17 09:02 % Saturation <4.8 % (20-50) L 03/21/17 09:02 Ferritin 767 ng/mL (11-264) H 03/21/17 09:02 Total Bilirubin 1.1 mg/dL (0.2-1.3) 03/21/17 01:21 AST 39 U/L (14-36) H 03/21/17 01:21 ALT 33 U/L (9-52) 03/21/17 01:21 Alkaline Phosphatase 126 U/L (38-126) 03/21/17 01:21 Total Creatine Kinase 53 U/L (30-135) 03/21/17 09:02 CK-MB (CK-2) 2.2 ng/mL (0.0-2.4) 03/21/17 09:02 CK-MB (CK-2) Rel Index 4.2 03/21/17 09:02 Troponin I 0.051 ng/mL (0.000-0.034) H* 03/21/17 09:02 NT-Pro-B Natriuret Pep 30764 pg/mL 03/21/17 01:21 Total Protein 6.1 g/dL (6.3-8.2) L 03/21/17 01:21 Albumin 3.1 g/dL (3.5-5.0) L 03/21/17 01:21 Triglycerides 79 mg/dL (<150) 03/22/17 06:05 Cholesterol 107 mg/dL (<200) 03/22/17 06:05 LDL Cholesterol, Calc 44 mg/dL (0-99) 03/22/17 06:05 HDL Cholesterol 47 mg/dL (40-60) 03/22/17 06:05 TSH 4.470 mIU/L (0.465-4.680) 03/21/17 09:02 Digoxin 2.0 ng/mL 03/21/17 09:02 Assessment and Plan (1) COPD (chronic obstructive pulmonary disease) Narrative/Plan: 56-year-old female who is advanced COPD is oxygen and inhaled steroid dependent carefully continues to smoke. Presents to Hospital feeling very weak and ill. His been seen by cardiology. His been instructed to take no further amiodarone to ensure there is no toxicity to her pulmonary system from this medication. Rate controlled with digitalis and calcium channel blockers is being utilized. She still feels quite short of breath. Receiving multiple respiratory treatments. As well as oral steroid therapy. She may feel slowly better than admission. She has received some diuresis. At this time with exacerbation of her COPD and her history of MSSA, ceftriaxone will be given while cultures are in process. Her leukocytosis is multifactorial including her steroid therapy and acute exacerbation of her underlying lung disease. Smoking cessation is again discussed. With diuresis his deftly feeling better. Following with cardiology. We'll not be planning on long-term IV antibiotic therapy. Status: Acute (2) Leukocytosis Status: Acute
[2017-03-23 20:51] LABS: Glucose,Whole Blood 213 mg/dL (75-99)
[2017-03-23] MEDS: DOCUSATE 100 MG CAP PO SCH (21:35)
[2017-03-23] MEDS: ATORVASTATIN 40 MG TAB PO SCH (21:36)
[2017-03-23] MEDS: cefTRIAXone 2,000 MG in SODIUM CHLORIDE 0.9% 100 ML IVPB SCH (21:36)
[2017-03-24] MEDS: HYDROmorphone 1 MG/ML 1 ML SYRINGE IVP PRN ×4 (02:31→20:14)
[2017-03-24] MEDS: HYDROcodone/APAP 10-325MG 1 EACH TAB PO PRN ×3 (03:22→16:35)
[2017-03-24] MEDS: ALPRAZolam 0.25 MG TAB PO PRN (04:46)
[2017-03-24 05:57] LABS: Glucose,Whole Blood 120 mg/dL (75-99)
[2017-03-24] MEDS: INSULIN LISPRO (humaLOG) 300 UNIT/3 ML VIAL SQ SCH ×4 (06:33→22:01)
[2017-03-24 06:39] LABS: Basophils % (A) 0 %; CH 19.8; CHCM 28.9; Eosinophils % (A) 0 %; HDW 3.27; HGB 8.2 gm/dL (11.4-16.0); Hypochromasia Marked; Luc # (Auto) 0.13; Luc % (Auto) 1; Lymphocytes # (A) 0.8 k/uL (1.0-4.8); Lymphocytes % (A) 6 %; MCH 19.6 pg (25.0-35.0); MCHC 28.4 g/dL (31.0-37.0); Mean Platelet Volume 7.3; Microcytosis Marked; Monocytes # (A) 0.5 k/uL (0-1.0); Monocytes % (A) 4 %; Neutrophils # (A) 11.9 k/uL (1.3-7.7); Neutrophils % (A) 89 %; RDW 15.3 % (11.5-15.5); WBC 13.4 k/uL (3.8-10.6); WBC (Perox) 14.53
[2017-03-24 06:55] LABS: Anion Gap 7 mmol/L; Blood Urea Nitrogen 34 mg/dL (7-17); Calcium 8.8 mg/dL (8.4-10.2); Carbon Dioxide 36 mmol/L (22-30); Chloride 92 mmol/L (98-107); Glucose 107 mg/dL (74-99); Non-African American GFR(MDRD) >60 (>60 ml/min/1.73 sqM); Potassium 5.2 mmol/L (3.5-5.1); Sodium 135 mmol/L (137-145)
[2017-03-24 06:58] LABS: INR 1.5 (<1.1)
[2017-03-24] MEDS: IPRATROPIUM-ALBUTEROL 3 ML NEB INHALATION SCH ×4 (07:53→19:28)
[2017-03-24] MEDS: hydrALAZINE HCL 25 MG TAB PO SCH ×2 (08:59→20:24)
[2017-03-24] MEDS: FUROSEMIDE 10 MG/ML 4 ML VIAL IV SCH ×2 (08:59→20:24)
[2017-03-24] MEDS: predniSONE 10 MG TAB PO SCH ×3 (08:59→20:25)
[2017-03-24] MEDS: ENOXAPARIN 40 MG/0.4 ML SYRINGE SQ SCH ×2 (08:59→20:24)
[2017-03-24] MEDS: DOCUSATE 100 MG CAP PO SCH ×2 (08:59→20:24)
[2017-03-24 11:57] LABS: Glucose,Whole Blood 115 mg/dL (75-99)
--- NOTE | 2017-03-24 12:27 | P.PN ---
Subjective Principal diagnosis: Shortness of breath This is a 56-year-old female with known history of chronic persistent atrial fibrillation, COPD, pulmonary hypertension, severe mitral stenosis, anemia, renal failure, nicotine dependence, she presented to the hospital with symptoms of progressively worsening shortness of breath. She was initiated on IV Lasix in the emergency room and diuresed well from that. She does not take any Lasix on a regular basis at home. Patient was also found to have significant right-sided pleural effusion. Hemoglobin this morning 8.2 BUN 34, creatinine 0.7. Potassium 5.2. Patient was initiated yesterday on IV Lasix, she's diuresed well through the night last night and her weight today is down 1 kg. She does state that she feels her breathing is improved. Just feeling extremely weak. A repeat chest x-ray was ordered for today which is yet pending. Objective - Vital Signs Vital signs: Vital Signs Temp 96.3 F L 03/24/17 11:53 Pulse 73 03/24/17 11:55 Resp 18 03/24/17 11:55 BP 122/65 03/24/17 11:53 Pulse Ox 100 03/24/17 11:53 Intake & Output 03/23/17 03/24/17 03/24/17 18:59 06:59 18:59 Intake Total 405 Output Total 925 1400 Balance -520 -1400 Weight 40.5 kg 40.5 kg Intake: Oral 405 Output: Urine 925 1400 Other: Voiding Method Indwelling Catheter Indwelling Catheter Indwelling Catheter # Voids 2 # Bowel Movements 1 - Exam PHYSICAL EXAMINATION: HEENT: Head is atraumatic, normocephalic. Pupils equal, round. Neck is supple. There is elevated jugular venous pressure. HEART EXAMINATION: R S1 and S2 irregularly irregular systolic and diastolic murmur heard CHEST EXAMINATION: Lungs reveal improvement in air exchange throughout ABDOMEN: Soft, nontender. Bowel sounds are heard. No organomegaly noted. EXTREMITIES: 2+ peripheral pulses with no evidence of peripheral edema and no calf tenderness noted. NEUROLOGIC patient is awake, alert and oriented -3. . - Labs CBC & Chem 7: 03/24/17 06:08 03/24/17 06:08 Labs: Abnormal Lab Results - Last 24 Hours (Table) 03/23/17 03/23/17 03/24/17 Range/Units 16:47 20:49 05:55 WBC (3.8-10.6) k/uL Hgb (11.4-16.0) gm/dL Hct (34.0-46.0) % MCV (80.0-100.0) fL MCH (25.0-35.0) pg MCHC (31.0-37.0) g/dL Neutrophils # (1.3-7.7) k/uL Lymphocytes # (1.0-4.8) k/uL PT (9.0-12.0) sec Sodium (137-145) mmol/L Potassium (3.5-5.1) mmol/L Chloride (98-107) mmol/L Carbon Dioxide (22-30) mmol/L BUN (7-17) mg/dL Glucose (74-99) mg/dL POC Glucose (mg/dL) 129 H 213 H 120 H (75-99) mg/dL 03/24/17 03/24/17 03/24/17 Range/Units 06:08 06:08 06:08 WBC 13.4 H (3.8-10.6) k/uL Hgb 8.2 L (11.4-16.0) gm/dL Hct 29.0 L (34.0-46.0) % MCV 69.0 L (80.0-100.0) fL MCH 19.6 L (25.0-35.0) pg MCHC 28.4 L (31.0-37.0) g/dL Neutrophils # 11.9 H (1.3-7.7) k/uL Lymphocytes # 0.8 L (1.0-4.8) k/uL PT 15.0 H (9.0-12.0) sec Sodium 135 L (137-145) mmol/L Potassium 5.2 H (3.5-5.1) mmol/L Chloride 92 L (98-107) mmol/L Carbon Dioxide 36 H (22-30) mmol/L BUN 34 H (7-17) mg/dL Glucose 107 H (74-99) mg/dL POC Glucose (mg/dL) (75-99) mg/dL 03/24/17 Range/Units 11:50 WBC (3.8-10.6) k/uL Hgb (11.4-16.0) gm/dL Hct (34.0-46.0) % MCV (80.0-100.0) fL MCH (25.0-35.0) pg MCHC (31.0-37.0) g/dL Neutrophils # (1.3-7.7) k/uL Lymphocytes # (1.0-4.8) k/uL PT (9.0-12.0) sec Sodium (137-145) mmol/L Potassium (3.5-5.1) mmol/L Chloride (98-107) mmol/L Carbon Dioxide (22-30) mmol/L BUN (7-17) mg/dL Glucose (74-99) mg/dL POC Glucose (mg/dL) 115 H (75-99) mg/dL Assessment and Plan (1) Diastolic CHF, acute on chronic Status: Acute (2) Severe mitral valve stenosis Status: Acute (3) COPD (chronic obstructive pulmonary disease) Status: Acute (4) Nicotine dependence Status: Acute (5) Iron deficiency anemia Status: Acute Plan: From cardiology's perspective, continue IV Lasix for 24 hours. Review chest x- ray. Patient has also been encouraged today to be in the chair. Plan for discharge on the next 24-48 hours. DNP note has been reviewed, I agree with a documented findings and plan of care. Patient was seen and examined.
--- NOTE | 2017-03-24 14:10 | XR ---
EXAMINATION TYPE: XR chest 2V DATE OF EXAM: 03/24/2017 HISTORY: f/u chf. REFERENCE: Previous study dated 03/21/2017. FINDINGS: There is a prominent right-sided pleural effusion. Aeration of both lungs is improved. The heart remains enlarged. IMPRESSION: IMPROVING CHANGES OF PULMONARY EDEMA.
[2017-03-24 16:39] LABS: Glucose,Whole Blood 141 mg/dL (75-99)
--- NOTE | 2017-03-24 19:15 | PN ---
DATE OF SERVICE: 03/23/2017 This is a 56-year-old white female who has multiple chronic medical problems. She is known to have chronic congestive heart failure, chronic atrial fibrillation, advanced mitral stenosis, chronic obstructive pulmonary disease, diabetes mellitus, low back pain, and past history of renal insufficiency. The patient was brought to the emergency room because of increasing shortness of breath and general weakness. She was found to have congestive heart failure and chronic obstructive pulmonary disease with acute exacerbation. Patient was admitted to the hospital for further evaluation and treatment. Patient was started on updraft treatment, IV antibiotics and IV Solu-Medrol. The patient was aggressively treated with diuretics. Patient was seen by [facility] in consultation. Patient was placed back on her previous medications. Her respiratory status started improving. She is still using nasal oxygen constantly. Discharge plans were discussed with the patient; apparently patient is wanting to go back home and not to any rehab unit. Her progress chest x-ray shows marked improvement in the congestive heart failure. Cardiology is also feeling that patient cardiac-armas has become stable and she could be discharged in a couple of days. Prognosis guarded. The diagnosis, prognosis and therapeutic plans were discussed in detail with the patient.
--- NOTE | 2017-03-24 19:53 | PN ---
DATE OF SERVICE: 03/24/2017 This is a 56-year-old white female who was admitted with congestive heart failure and acute exacerbation of chronic obstructive pulmonary disease. Patient is known to have a advanced mitral stenosis and she has had mitral valvuloplasty in the past. Patient also has chronic atrial fibrillation and chronic combined diastolic and systolic congestive heart failure. The patient has been started on aggressive diuretic treatment and was seen by [facility] in consultation. Her respiratory status improved and progress chest x-ray also showed significant improvement. The patient is still using nasal oxygen constantly and also he is extremely weak. Vital signs are otherwise stable. Overall prognosis is guarded. The discharge plan was discussed in detail with the patient today and apparently patient requested that she be discharged home. She does not want to go to a rehab unit. Accordingly, the patient will possibly be discharged home tomorrow.
[2017-03-24] MEDS: ATORVASTATIN 40 MG TAB PO SCH (20:23)
[2017-03-24] MEDS: cefTRIAXone 2,000 MG in SODIUM CHLORIDE 0.9% 100 ML IVPB SCH (20:23)
[2017-03-24] MEDS: traZODone HCL 50 MG TAB PO SCH (20:25)
[2017-03-24 21:26] LABS: Glucose,Whole Blood 176 mg/dL (75-99)
[2017-03-25] MEDS: HYDROcodone/APAP 10-325MG 1 EACH TAB PO PRN ×4 (00:11→22:39)
[2017-03-25] MEDS: HYDROmorphone 1 MG/ML 1 ML SYRINGE IVP PRN ×5 (00:11→21:29)
[2017-03-25] MEDS: IPRATROPIUM-ALBUTEROL 3 ML NEB INHALATION PRN (01:31)
[2017-03-25] MEDS: ALPRAZolam 0.25 MG TAB PO PRN ×2 (01:49→22:39)
[2017-03-25 06:31] LABS: Glucose,Whole Blood 247 mg/dL (75-99)
[2017-03-25] MEDS: INSULIN LISPRO (humaLOG) 300 UNIT/3 ML VIAL SQ SCH ×4 (06:35→21:29)
[2017-03-25 06:37] LABS: Basophils % (A) 0 %; CH 19.8; CHCM 28.8; Eosinophils # (A) 0.1 k/uL (0-0.7); Eosinophils % (A) 1 %; HCT 30.7 % (34.0-46.0); HDW 3.16; Hypochromasia Marked; Luc # (Auto) 0.18; Luc % (Auto) 1; Lymphocytes % (A) 7 %; MCH 20.2 pg (25.0-35.0); MCHC 29.4 g/dL (31.0-37.0); MCV 68.9 fL (80.0-100.0); Mean Platelet Volume 7.2; Microcytosis Moderate; Monocytes # (A) 0.6 k/uL (0-1.0); Monocytes % (A) 4 %; Neutrophils # (A) 12.8 k/uL (1.3-7.7); Neutrophils % (A) 88 %; RBC 4.46 m/uL (3.80-5.40); RDW 15.1 % (11.5-15.5); WBC 14.6 k/uL (3.8-10.6); WBC (Perox) 15.37
[2017-03-25 06:48] LABS: Anion Gap 7 mmol/L; Blood Urea Nitrogen 41 mg/dL (7-17); Carbon Dioxide 39 mmol/L (22-30); Chloride 87 mmol/L (98-107); Glucose 192 mg/dL (74-99); Non-African American GFR(MDRD) >60 (>60 ml/min/1.73 sqM); Potassium 5.1 mmol/L (3.5-5.1); Sodium 133 mmol/L (137-145)
[2017-03-25] MEDS: FUROSEMIDE 10 MG/ML 4 ML VIAL IV SCH (08:01)
[2017-03-25] MEDS: predniSONE 10 MG TAB PO SCH ×3 (08:02→20:05)
[2017-03-25] MEDS: hydrALAZINE HCL 25 MG TAB PO SCH ×2 (08:02→20:05)
[2017-03-25] MEDS: DOCUSATE 100 MG CAP PO SCH ×2 (08:03→20:04)
[2017-03-25] MEDS: ENOXAPARIN 40 MG/0.4 ML SYRINGE SQ SCH ×2 (08:03→20:05)
[2017-03-25] MEDS: IPRATROPIUM-ALBUTEROL 3 ML NEB INHALATION SCH ×4 (09:03→19:31)
[2017-03-25 12:01] LABS: Glucose,Whole Blood 178 mg/dL (75-99)
[2017-03-25] MEDS ORDERED: FUROSEMIDE 10 MG/ML 2 ML VIAL IV ONE (12:19)
--- NOTE | 2017-03-25 14:16 | PN ---
DATE OF SERVICE: 03/25/2017 This 56-year-old white female who has multiple chronic medical problems and she is known to have chronic congestive heart failure, both combined systolic and diastole, chronic obstructive pulmonary disease and advanced mitral stenosis, chronic atrial fibrillation, diabetes mellitus, hypertensive cardiovascular disease, low back pain and patient was admitted at this time with acute on chronic congestive heart failure and chronic COPD with acute exacerbation. Patient was placed on her previous medications and was seen by [facility] in consultation and patient was aggressively treated with diuretics and she was also getting updraft treatments and IV antibiotics. Apparently with these treatments her symptoms started improving. A progress chest x-ray showed significant improvement of congestive heart failure. Patient also tolerating increased activities. Patient is still extremely weak and using nasal oxygen constantly. A progress chest x-ray shows significant improvement. Today, patient is still having some increased shortness of breath and she feels that her lungs are more congested today. Will give her Lasix 20 mg IV extra dose today and if her symptoms improve and condition is stable, she will be discharged home tomorrow. The prognosis and therapeutic plans and also the discharge plan were discussed in detail with the patient today.
--- NOTE | 2017-03-25 15:34 | P.PN ---
Subjective This is a 56 showed female with a known history of chronic atrial fibrillation, COPD, pulmonary hypertension, severe mitral stenosis, anemia, renal failure and nicotine dependence. She presented to the hospital symptoms of progressively worsening shortness of breath. She was initiated on IV Lasix in the emergency department and diuresed well from that. Patient was also found to have significant right-sided pleural effusion. Her weight is down again today 1 kg. She feels that her breathing is improved however she feels somewhat wheezy today. Continues to feel weak. X-ray from yesterday showed improving changes of pulmonary edema. Objective - Vital Signs Vital signs: Vital Signs Temp 97.0 F L 03/25/17 04:00 Pulse 80 03/25/17 15:18 Resp 16 03/25/17 12:00 BP 124/75 03/25/17 12:00 Pulse Ox 99 03/25/17 12:00 Intake & Output 03/24/17 03/25/17 03/25/17 18:59 06:59 18:59 Intake Total 100 200 Output Total 800 Balance -700 200 Weight 40.5 kg 39.3 kg 39.3 kg Intake: IV 100 cefTRIAXone 2,000 mg In 100 Sodium Chloride 0.9% 100 ml @ 100 mls/hr IVPB [facility] Rx#:[id number] Oral 200 Output: Urine 800 Other: Voiding Method Indwelling Catheter Indwelling Catheter Indwelling Catheter # Bowel Movements 1 - Exam PHYSICAL EXAMINATION: HEENT: Head is atraumatic, normocephalic. Pupils equal, round. Neck is supple. There is no elevated jugular venous pressure. HEART EXAMINATION: Heart sounds irregularly irregular, S1 and S2 with a systolic and diastolic murmur heard. CHEST EXAMINATION: Lungs reveal diminished air entry throughout with faint expiratory wheezing. No chest wall tenderness is noted on palpation or with deep breathing. ABDOMEN: Soft, nontender. Bowel sounds are heard. No organomegaly noted. EXTREMITIES: 2+ peripheral pulses with no evidence of peripheral edema and no calf tenderness noted. NEUROLOGIC patient is awake, alert and oriented x3. . - Labs CBC & Chem 7: 03/25/17 06:05 03/25/17 06:05 Labs: Abnormal Lab Results - Last 24 Hours (Table) 03/24/17 03/24/17 03/25/17 Range/Units 16:27 21:04 06:05 WBC 14.6 H (3.8-10.6) k/uL Hgb 9.0 L (11.4-16.0) gm/dL Hct 30.7 L (34.0-46.0) % MCV 68.9 L (80.0-100.0) fL MCH 20.2 L (25.0-35.0) pg MCHC 29.4 L (31.0-37.0) g/dL Neutrophils # 12.8 H (1.3-7.7) k/uL Sodium (137-145) mmol/L Chloride (98-107) mmol/L Carbon Dioxide (22-30) mmol/L BUN (7-17) mg/dL Glucose (74-99) mg/dL POC Glucose (mg/dL) 141 H 176 H (75-99) mg/dL 03/25/17 03/25/17 03/25/17 Range/Units 06:05 06:29 12:00 WBC (3.8-10.6) k/uL Hgb (11.4-16.0) gm/dL Hct (34.0-46.0) % MCV (80.0-100.0) fL MCH (25.0-35.0) pg MCHC (31.0-37.0) g/dL Neutrophils # (1.3-7.7) k/uL Sodium 133 L (137-145) mmol/L Chloride 87 L (98-107) mmol/L Carbon Dioxide 39 H (22-30) mmol/L BUN 41 H (7-17) mg/dL Glucose 192 H (74-99) mg/dL POC Glucose (mg/dL) 247 H 178 H (75-99) mg/dL Assessment and Plan Plan: Assessment and plan 1 acute on chronic diastolic congestive heart failure #2 severe mitral valve stenosis #3 COPD #4 nicotine dependence #5 iron deficiency anemia From cardiology's perspective, we will switch the patient over to by mouth Lasix increase patient's activity. We'll continue to follow patient for further recommendations accordingly. We anticipate patient be discharged in the next 24 hours. The above dictated assessment and findings were discussed with signing physician. The impression and plan of care have been directed as dictated. Megan Mendoza, Nurse Practitioner, acting as scribe for signing physician.
[2017-03-25 16:41] LABS: Glucose,Whole Blood 182 mg/dL (75-99)
[2017-03-25] MEDS: FUROSEMIDE 40 MG TAB PO SCH (16:52)
[2017-03-25] MEDS: ATORVASTATIN 40 MG TAB PO SCH (20:04)
[2017-03-25] MEDS: cefTRIAXone 2,000 MG in SODIUM CHLORIDE 0.9% 100 ML IVPB SCH (20:04)
[2017-03-25] MEDS: traZODone HCL 50 MG TAB PO SCH (20:05)
[2017-03-25 20:38] LABS: Glucose,Whole Blood 174 mg/dL (75-99)
--- NOTE | 2017-03-25 22:15 | P.PN ---
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 She's not been feeling well for several days. Nose that she's having ongoing difficulties with her pulmonary status. This thought to have another episode of pneumonia. She has significant weakness sputum production and fever. Fortunately not requiring ICU stay at this time. She feels slightly better since coming to hospital. But as for oxygens even working. We prove that she is receiving oxygen at 4 L but she is still somewhat short of breath. She feels quite poorly overall. She has mild cough with scant sputum production. At admission she was found evidence of atrial fibrillation was rate controlled she has not responded well to amiodarone in the past. Is noted she complains a beget weakness but denies chills or rigors. Patient is now had diuresis. was feeling somewhat better. Still very weak.More short of breath today. Objective - Vital Signs Vital signs: Vital Signs Temp 97.9 F 03/25/17 20:00 Pulse 87 03/25/17 20:00 Resp 21 03/25/17 20:00 BP 135/68 03/25/17 20:00 Pulse Ox 100 03/25/17 20:00 Intake & Output 03/25/17 03/25/17 03/26/17 06:59 18:59 06:59 Intake Total 100 360 Output Total 800 900 Balance -700 360 -900 Weight 39.3 kg 39.3 kg Intake: IV 100 cefTRIAXone 2,000 mg In 100 Sodium Chloride 0.9% 100 ml @ 100 mls/hr IVPB [facility] Rx#:[id number] Oral 360 Output: Urine 800 900 Other: Voiding Method Indwelling Catheter Indwelling Catheter Indwelling Catheter - Exam 56-year-old woman who looks much older than her stated age. She is chronically ill. HEENT: Anicteric conjunctiva are pink and moist nasal mucosa grossly intact without significant lesions, there is no thrush. Poor dentition Neck: The neck is supple without significant lymphadenopathy or thyromegaly. Lungs: Symmetrical air entry with wheezes scattered throughout the lung iqbal. Basilar crackles are heard. No dullness or egophony Heart: Irregularly irregular no S3 loud S4 There is no significant murmur click or rub, PMI was nondisplaced. Abdomen: Positive bowel sounds soft and nontender without palpable masses or organomegaly. There was no guarding or rebound. Extremities: The extremities have just trace edema. She has no tenderness over the joints. Skin the patient has changes of diabetes her lower extremities however she has a difficulty with chronically picking at her skin and has innumerable lesions that healed over arms and legs at this time. None of them are open are grossly draining at this time Neuro: She is awake alert oriented to person place and time and does not exhibit any acute gross focal sensory motor deficits - Labs CBC & Chem 7: 03/25/17 06:05 03/25/17 06:05 Labs: Abnormal Lab Results - Last 24 Hours (Table) 03/25/17 03/25/17 03/25/17 Range/Units 06:05 06:05 06:29 WBC 14.6 H (3.8-10.6) k/uL Hgb 9.0 L (11.4-16.0) gm/dL Hct 30.7 L (34.0-46.0) % MCV 68.9 L (80.0-100.0) fL MCH 20.2 L (25.0-35.0) pg MCHC 29.4 L (31.0-37.0) g/dL Neutrophils # 12.8 H (1.3-7.7) k/uL Sodium 133 L (137-145) mmol/L Chloride 87 L (98-107) mmol/L Carbon Dioxide 39 H (22-30) mmol/L BUN 41 H (7-17) mg/dL Glucose 192 H (74-99) mg/dL POC Glucose (mg/dL) 247 H (75-99) mg/dL 03/25/17 03/25/17 03/25/17 Range/Units 12:00 16:40 20:34 WBC (3.8-10.6) k/uL Hgb (11.4-16.0) gm/dL Hct (34.0-46.0) % MCV (80.0-100.0) fL MCH (25.0-35.0) pg MCHC (31.0-37.0) g/dL Neutrophils # (1.3-7.7) k/uL Sodium (137-145) mmol/L Chloride (98-107) mmol/L Carbon Dioxide (22-30) mmol/L BUN (7-17) mg/dL Glucose (74-99) mg/dL POC Glucose (mg/dL) 178 H 182 H 174 H (75-99) mg/dL Laboratory Results WBC 14.6 k/uL (3.8-10.6) H 03/25/17 06:05 RBC 4.46 m/uL (3.80-5.40) 03/25/17 06:05 Hgb 9.0 gm/dL (11.4-16.0) L 03/25/17 06:05 Hct 30.7 % (34.0-46.0) L 03/25/17 06:05 MCV 68.9 fL (80.0-100.0) L 03/25/17 06:05 MCH 20.2 pg (25.0-35.0) L 03/25/17 06:05 MCHC 29.4 g/dL (31.0-37.0) L 03/25/17 06:05 RDW 15.1 % (11.5-15.5) 03/25/17 06:05 Plt Count 240 k/uL (150-450) 03/25/17 06:05 Neutrophils % 88 % 03/25/17 06:05 Lymphocytes % 7 % 03/25/17 06:05 Monocytes % 4 % 03/25/17 06:05 Eosinophils % 1 % 03/25/17 06:05 Basophils % 0 % 03/25/17 06:05 Neutrophils # 12.8 k/uL (1.3-7.7) H 03/25/17 06:05 Lymphocytes # 1.0 k/uL (1.0-4.8) 03/25/17 06:05 Monocytes # 0.6 k/uL (0-1.0) 03/25/17 06:05 Eosinophils # 0.1 k/uL (0-0.7) 03/25/17 06:05 Basophils # 0.0 k/uL (0-0.2) 03/25/17 06:05 Hypochromasia Marked 03/25/17 06:05 Poikilocytosis Slight 03/21/17 01:21 Microcytosis Moderate 03/25/17 06:05 PT 15.0 sec (9.0-12.0) H 03/24/17 06:08 INR 1.5 (<1.1) 03/24/17 06:08 APTT 31.5 sec (22.0-30.0) H 03/21/17 09:02 D-Dimer 1.25 mg/L FEU (<0.60) H 03/21/17 01:21 Sodium 133 mmol/L (137-145) L 03/25/17 06:05 Potassium 5.1 mmol/L (3.5-5.1) 03/25/17 06:05 Chloride 87 mmol/L (98-107) L 03/25/17 06:05 Carbon Dioxide 39 mmol/L (22-30) H 03/25/17 06:05 Anion Gap 7 mmol/L 03/25/17 06:05 BUN 41 mg/dL (7-17) H 03/25/17 06:05 Creatinine 0.80 mg/dL (0.52-1.04) 03/25/17 06:05 Est GFR (MDRD) Af Amer >60 (>60 ml/min/1.73 sqM) 03/25/17 06:05 Est GFR (MDRD) Non-Af >60 (>60 ml/min/1.73 sqM) 03/25/17 06:05 Glucose 192 mg/dL (74-99) H 03/25/17 06:05 POC Glucose (mg/dL) 174 mg/dL (75-99) H 03/25/17 20:34 POC Glu [employer] Perez Parham 03/25/17 20:[address] Glu mg/dL 85 mg/dL 03/21/17 09:02 Hemoglobin A1c 4.6 % (4.2-6.1) 03/21/17 09:02 Calcium 9.0 mg/dL (8.4-10.2) 03/25/17 06:05 Iron <10 ug/dL (37-170) L 03/21/17 09:02 TIBC 210 ug/dL (265-497) L 03/21/17 09:02 % Saturation <4.8 % (20-50) L 03/21/17 09:02 Ferritin 767 ng/mL (11-264) H 03/21/17 09:02 Total Bilirubin 1.1 mg/dL (0.2-1.3) 03/21/17 01:21 AST 39 U/L (14-36) H 03/21/17 01:21 ALT 33 U/L (9-52) 03/21/17 01:21 Alkaline Phosphatase 126 U/L (38-126) 03/21/17 01:21 Total Creatine Kinase 53 U/L (30-135) 03/21/17 09:02 CK-MB (CK-2) 2.2 ng/mL (0.0-2.4) 03/21/17 09:02 CK-MB (CK-2) Rel Index 4.2 03/21/17 09:02 Troponin I 0.051 ng/mL (0.000-0.034) H* 03/21/17 09:02 NT-Pro-B Natriuret Pep 78557 pg/mL 03/21/17 01:21 Total Protein 6.1 g/dL (6.3-8.2) L 03/21/17 01:21 Albumin 3.1 g/dL (3.5-5.0) L 03/21/17 01:21 Triglycerides 79 mg/dL (<150) 03/22/17 06:05 Cholesterol 107 mg/dL (<200) 03/22/17 06:05 LDL Cholesterol, Calc 44 mg/dL (0-99) 03/22/17 06:05 HDL Cholesterol 47 mg/dL (40-60) 03/22/17 06:05 TSH 4.470 mIU/L (0.465-4.680) 03/21/17 09:02 Digoxin 2.0 ng/mL 03/21/17 09:02 Assessment and Plan (1) COPD (chronic obstructive pulmonary disease) Narrative/Plan: 56-year-old female who is advanced COPD is oxygen and inhaled steroid dependent carefully continues to smoke. Presents to Hospital feeling very weak and ill. His been seen by cardiology. His been instructed to take no further amiodarone to ensure there is no toxicity to her pulmonary system from this medication. Rate controlled with digitalis and calcium channel blockers is being utilized. She still feels quite short of breath. Receiving multiple respiratory treatments. As well as oral steroid therapy. She may feel slowly better than admission. She has received some diuresis. At this time with exacerbation of her COPD and her history of MSSA, ceftriaxone will be given while cultures are in process. Her leukocytosis is multifactorial including her steroid therapy and acute exacerbation of her underlying lung disease. Smoking cessation is again discussed. With diuresis was feeling better. Now worsening , is candidate for palliative care. Following with cardiology. We'll not be planning on long-term IV antibiotic therapy. Status: Acute (2) Leukocytosis Status: Acute
[2017-03-26] MEDS: HYDROmorphone 1 MG/ML 1 ML SYRINGE IVP PRN ×6 (01:14→23:25)
[2017-03-26] MEDS: INSULIN LISPRO (humaLOG) 300 UNIT/3 ML VIAL SQ SCH ×4 (06:07→21:57)
[2017-03-26 06:24] LABS: Glucose,Whole Blood 112 mg/dL (75-99)
[2017-03-26 06:50] LABS: Basophils % (A) 0 %; CH 19.7; CHCM 28.3; Eosinophils # (A) 0.1 k/uL (0-0.7); Eosinophils % (A) 1 %; HCT 28.6 % (34.0-46.0); HDW 3.12; HGB 8.2 gm/dL (11.4-16.0); Hypochromasia Marked; Luc # (Auto) 0.21; Luc % (Auto) 2; Lymphocytes # (A) 1.1 k/uL (1.0-4.8); Lymphocytes % (A) 8 %; MCHC 28.6 g/dL (31.0-37.0); MCV 69.8 fL (80.0-100.0); Mean Platelet Volume 6.7; Microcytosis Moderate; Monocytes # (A) 0.7 k/uL (0-1.0); Monocytes % (A) 5 %; Neutrophils # (A) 11.1 k/uL (1.3-7.7); Neutrophils % (A) 84 %; RDW 15.3 % (11.5-15.5); WBC 13.2 k/uL (3.8-10.6); WBC (Perox) 13.89
[2017-03-26 07:16] LABS: Blood Urea Nitrogen 38 mg/dL (7-17); Calcium 8.6 mg/dL (8.4-10.2); Chloride 88 mmol/L (98-107); Glucose 103 mg/dL (74-99); Non-African American GFR(MDRD) >60 (>60 ml/min/1.73 sqM); Potassium 4.8 mmol/L (3.5-5.1); Sodium 136 mmol/L (137-145)
[2017-03-26 07:23] LABS: Anion Gap 6 mmol/L
[2017-03-26 07:31] LABS: Carbon Dioxide 42 mmol/L (22-30)
[2017-03-26] MEDS: IPRATROPIUM-ALBUTEROL 3 ML NEB INHALATION SCH ×4 (08:12→20:11)
[2017-03-26] MEDS: HYDROcodone/APAP 10-325MG 1 EACH TAB PO PRN ×3 (08:26→21:40)
[2017-03-26] MEDS: ENOXAPARIN 40 MG/0.4 ML SYRINGE SQ SCH ×2 (08:26→19:49)
[2017-03-26] MEDS: DOCUSATE 100 MG CAP PO SCH ×2 (08:27→19:49)
[2017-03-26] MEDS: FUROSEMIDE 40 MG TAB PO SCH ×2 (08:27→17:43)
[2017-03-26] MEDS: predniSONE 10 MG TAB PO SCH ×3 (08:27→20:03)
[2017-03-26] MEDS: hydrALAZINE HCL 25 MG TAB PO SCH ×2 (08:27→19:49)
--- NOTE | 2017-03-26 11:03 | PN ---
DATE OF SERVICE: 03/26/2017 This is a 56-year-old white female who was admitted with severe shortness of breath, general weakness and she was found to have acute on chronic congestive heart failure and COPD with acute exacerbation and she also has multiple other chronic medical problems as she has severe mitral stenosis and diabetes mellitus, chronic atrial fibrillation and the patient was admitted to telemetry and patient was seen by [facility] in consultation. She was treated with diuretics and placed back on all previous home medications. She will continue her updraft treatments, IV Solu-Medrol and she has some improvement in her respiratory symptoms but today she is complaining of increased shortness of breath and she has bilateral expiratory wheeze. Yesterday, she has received an extra dose of IV Lasix and today also will give her 20 mg Lasix IV extra dose and will also get consultation from Craniologist and Dr. Hinds has been consulted. Overall prognosis is guarded. The patient also has was seen by Dr. Castellon and the patient is currently receiving Rocephin IV and overall prognosis guarded. The diagnoses, prognosis, and therapeutic plans were discussed in detail with the patient.
[2017-03-26 11:31] LABS: Glucose,Whole Blood 93 mg/dL (75-99)
[2017-03-26] MEDS ORDERED: FUROSEMIDE 10 MG/ML 2 ML VIAL IV ONE (12:00)
--- NOTE | 2017-03-26 12:54 | P.PN ---
Subjective This is a 56 showed female with a known history of chronic atrial fibrillation, COPD, pulmonary hypertension, severe mitral stenosis, anemia, renal failure and nicotine dependence. She presented to the hospital symptoms of progressively worsening shortness of breath. She was initiated on IV Lasix in the emergency department and diuresed well from that. Patient was also found to have significant right-sided pleural effusion. She feels that her breathing is improved however she continues to feel somewhat wheezy today. Continues to feel weak. Most recent chest X-ray showed improving changes of pulmonary edema. Objective - Vital Signs Vital signs: Vital Signs Temp 96.4 F L 03/26/17 08:00 Pulse 92 03/26/17 12:41 Resp 19 03/26/17 04:00 BP 115/49 03/26/17 08:00 Pulse Ox 100 03/26/17 08:00 Intake & Output 03/25/17 03/26/17 03/26/17 18:59 06:59 18:59 Intake Total 360 620 118 Output Total 900 Balance 360 -280 118 Weight 39.3 kg 40.3 kg Intake: IV 140 0 0.9 40 0 cefTRIAXone 2,000 mg In 100 Sodium Chloride 0.9% 100 ml @ 100 mls/hr IVPB [facility] Rx#:[id number] Oral 360 480 118 Output: Urine 900 Other: Voiding Method Indwelling Catheter Indwelling Catheter Indwelling Catheter - Exam PHYSICAL EXAMINATION: HEENT: Head is atraumatic, normocephalic. Pupils equal, round. Neck is supple. There is no elevated jugular venous pressure. HEART EXAMINATION: Heart sounds irregularly irregular, S1 and S2 with a systolic and diastolic murmur heard. CHEST EXAMINATION: Lungs reveal diminished air entry throughout with diffuse wheezing. No chest wall tenderness is noted on palpation or with deep breathing. ABDOMEN: Soft, nontender. Bowel sounds are heard. No organomegaly noted. EXTREMITIES: 2+ peripheral pulses with no evidence of peripheral edema and no calf tenderness noted. NEUROLOGIC patient is awake, alert and oriented x3. . - Labs CBC & Chem 7: 03/26/17 06:01 03/26/17 06:01 Labs: Abnormal Lab Results - Last 24 Hours (Table) 03/25/17 03/25/17 03/26/17 Range/Units 16:40 20:34 06:01 WBC 13.2 H (3.8-10.6) k/uL Hgb 8.2 L (11.4-16.0) gm/dL Hct 28.6 L (34.0-46.0) % MCV 69.8 L (80.0-100.0) fL MCH 20.0 L (25.0-35.0) pg MCHC 28.6 L (31.0-37.0) g/dL Neutrophils # 11.1 H (1.3-7.7) k/uL Sodium (137-145) mmol/L Chloride (98-107) mmol/L Carbon Dioxide (22-30) mmol/L BUN (7-17) mg/dL Glucose (74-99) mg/dL POC Glucose (mg/dL) 182 H 174 H (75-99) mg/dL 03/26/17 03/26/17 Range/Units 06:01 06:03 WBC (3.8-10.6) k/uL Hgb (11.4-16.0) gm/dL Hct (34.0-46.0) % MCV (80.0-100.0) fL MCH (25.0-35.0) pg MCHC (31.0-37.0) g/dL Neutrophils # (1.3-7.7) k/uL Sodium 136 L (137-145) mmol/L Chloride 88 L (98-107) mmol/L Carbon Dioxide 42 H* (22-30) mmol/L BUN 38 H (7-17) mg/dL Glucose 103 H (74-99) mg/dL POC Glucose (mg/dL) 112 H (75-99) mg/dL Assessment and Plan Plan: Assessment and plan 1 acute on chronic diastolic congestive heart failure #2 severe mitral valve stenosis #3 COPD #4 nicotine dependence #5 iron deficiency anemia From cardiology's perspective, medications were reviewed and will continue the same. We will see the patient on an as-needed basis at this time. Please hesitate to contact us with questions. The above dictated assessment and findings were discussed with signing physician. The impression and plan of care have been directed as dictated. Megan Mendoza, Nurse Practitioner, acting as scribe for signing physician.
[2017-03-26 16:57] LABS: Glucose,Whole Blood 145 mg/dL (75-99)
[2017-03-26] MEDS: ATORVASTATIN 40 MG TAB PO SCH (19:49)
[2017-03-26] MEDS: cefTRIAXone 2,000 MG in SODIUM CHLORIDE 0.9% 100 ML IVPB SCH (19:49)
[2017-03-26] MEDS: traZODone HCL 50 MG TAB PO SCH (19:49)
[2017-03-26 21:09] LABS: Glucose,Whole Blood 169 mg/dL (75-99)
[2017-03-27] MEDS: HYDROmorphone 1 MG/ML 1 ML SYRINGE IVP PRN ×5 (03:25→21:09)
[2017-03-27] MEDS: HYDROcodone/APAP 10-325MG 1 EACH TAB PO PRN ×3 (03:25→19:08)
[2017-03-27 06:08] LABS: Glucose,Whole Blood 149 mg/dL (75-99)
[2017-03-27 06:12] LABS: Basophils % (A) 0 %; CHCM 28.6; Eosinophils # (A) 0.1 k/uL (0-0.7); Eosinophils % (A) 1 %; HCT 27.7 % (34.0-46.0); HDW 3.12; HGB 7.8 gm/dL (11.4-16.0); Hypochromasia Marked; Luc % (Auto) 1; Lymphocytes # (A) 1.1 k/uL (1.0-4.8); Lymphocytes % (A) 7 %; MCH 19.9 pg (25.0-35.0); MCHC 28.3 g/dL (31.0-37.0); MCV 70.3 fL (80.0-100.0); Mean Platelet Volume 6.7; Microcytosis Moderate; Monocytes # (A) 0.8 k/uL (0-1.0); Monocytes % (A) 5 %; Neutrophils # (A) 13.2 k/uL (1.3-7.7); Neutrophils % (A) 85 %; RBC 3.94 m/uL (3.80-5.40); RDW 15.7 % (11.5-15.5); WBC 15.5 k/uL (3.8-10.6); WBC (Perox) 16.35
[2017-03-27 06:25] LABS: Blood Urea Nitrogen 42 mg/dL (7-17); Calcium 8.7 mg/dL (8.4-10.2); Chloride 87 mmol/L (98-107); Glucose 128 mg/dL (74-99); Non-African American GFR(MDRD) >60 (>60 ml/min/1.73 sqM); Sodium 133 mmol/L (137-145)
[2017-03-27 06:32] LABS: Anion Gap 5 mmol/L
[2017-03-27 06:36] LABS: Carbon Dioxide 41 mmol/L (22-30)
[2017-03-27] MEDS: INSULIN LISPRO (humaLOG) 300 UNIT/3 ML VIAL SQ SCH ×4 (06:36→21:10)
--- NOTE | 2017-03-27 08:13 | XR ---
EXAMINATION TYPE: XR chest 2V DATE OF EXAM: 03/27/2017 COMPARISON: 03/24/2017 HISTORY: Shortness of breath TECHNIQUE: Frontal and lateral views of the chest are obtained. FINDINGS: Scattered senescent parenchymal changes noted. Hyperinflation compatible with COPD. Basilar effusion with patchy right lower lobe infiltrate or atelectasis. Granulomatous changes. Heart size is stable. Mediastinal structures are stable and grossly unremarkable. No evidence for hilar prominence. Degenerative changes dorsal spine. IMPRESSION: 1. Basilar effusion with patchy right lower lobe infiltrate or atelectasis.
[2017-03-27] MEDS: ENOXAPARIN 40 MG/0.4 ML SYRINGE SQ SCH ×2 (08:14→20:04)
[2017-03-27] MEDS: DOCUSATE 100 MG CAP PO SCH ×2 (08:14→20:04)
[2017-03-27] MEDS: hydrALAZINE HCL 25 MG TAB PO SCH ×2 (08:14→20:04)
[2017-03-27] MEDS: FUROSEMIDE 40 MG TAB PO SCH ×2 (08:14→16:51)
[2017-03-27] MEDS: predniSONE 10 MG TAB PO SCH (08:15)
[2017-03-27] MEDS: ALPRAZolam 0.25 MG TAB PO PRN (08:24)
[2017-03-27] MEDS: IPRATROPIUM-ALBUTEROL 3 ML NEB INHALATION SCH ×4 (08:46→20:38)
[2017-03-27 11:56] LABS: Glucose,Whole Blood 135 mg/dL (75-99)
--- NOTE | 2017-03-27 15:27 | CONS ---
DATE OF CONSULTATION: Kyra Loya is a 56-year-old female who presented to the ED at [facility] on 03/21/2016. She had been having increasing shortness of breath with some chest pain. She also had wheezing. She had recently been admitted to the hospital for COPD with pneumonia. She had no fever or chills at this time. Subsequently, she was admitted, started to worsen and pulmonary consultation was placed. Patient lives in a basement at this time and may have had new exposure to a cat. Past medical history is positive for asthma, severe persistent with COPD, congestive heart failure, valvular heart disease with mitral valve stenosis and severe tricuspid regurgitation, history of decubitus ulcers of the lower back, history of urinary tract infection with sepsis, anemia, elevated liver enzymes, history of atrial fibrillation with rapid ventricular response, history of heart failure, history of hysterectomy, history of mitral valve balloon valvuloplasty twice, history of anemia for which she has received blood transfusions. SOCIAL HISTORY: Patient smoked about a pack to two pack of cigarettes per day, used to drink alcohol in the past, but not recently and does not abuse IV drugs. FAMILY HISTORY: Positive for dementia in her father. Heart disease in her mother who in her 30s. Medications prior to admission were: 1. Atrovent. 2. Albuterol. 3. Coumadin. 4. Combivent. 5. ( ). 6. [place]. 7. Digitek. 8. Cordarone. 9. Xanax. REVIEW OF SYSTEMS: Positive for cachexia. On physical examination, respiratory rate is 18, pulse rate of 92, temperature 96.3, blood pressure 120/66, O2 sat on 4 liters by nasal cannula is 100%. HEENT reveals pupils are equal. Mild prominence of the jugular veins. Chest reveals decreased breath sounds at the bases. There is bilateral expiratory wheeze with prolonged expiration, poor air entry. Cardiovascular system reveals an S1 and S2. ABDOMEN: Soft. There is trace pedal edema. Labs reveal a white count of 15.5, hemoglobin 7.8. Sodium 133, potassium 5, chloride 87, bicarb 41, BUN 42, creatinine 0.8. NT-proBNP of 4680. Chest x-ray shows bilateral effusion with right lower lobe atelectasis. CT scan of the chest done on 03/21/2017 showed no evidence of PE. Diffuse groundglass opacities were seen in the apices with compressive atelectasis of the right middle and lower lobes. There was a 2.2 cm mass like opacity in the left lower lobe, moderate right-sided pleural effusion with small left pleural effusion. There was reflux of contrast into the IVC and hepatic veins suggestive of diminished right-sided cardiac function as well. IMPRESSION: 1. Dyspnea secondary to his severe asthma with chronic obstructive pulmonary disease with acute exacerbation. 2. Congestive heart failure with right pleural effusion secondary to mitral stenosis and pulmonary hypertension which may be due to mitral stenosis as well. 3. Right pleural effusion, more than the left secondary to congestive heart failure is likely cannot rule out other etiologies. 4. Left-sided atelectatic change versus mass for which we would need to repeat a CAT scan once she is doing better from a pulmonary standpoint and her fluid status is optimized. At this point in time, from a pulmonary standpoint, would continue bronchodilators. Add aerosolized steroids, IV steroids and Montelukast. Check an allergy profile. Treat her for congestive heart failure. Increase her activity level. Continue supplemental oxygen. Keep her on GI and DVT prophylaxis. Depending on how she does, further changes to her care will be made. The patient will follow with Dr. Felicity Hinds in the next 24 hours who I am covering for. The patient was counseled regarding her condition and this approach. I agree with considering transfusing her 1 unit of packed cells to optimize her oxygen delivery.
[2017-03-27 16:59] LABS: Glucose,Whole Blood 196 mg/dL (75-99)
--- NOTE | 2017-03-27 19:49 | PN ---
This 56-year-old white female who was admitted with severe acute on chronic congestive heart failure and chronic obstructive pulmonary disease with acute exacerbation. She also has severe mitral stenosis and patient was seen by [facility] in consultation. The patient was treated aggressively with diuretics and she was placed back on her previous home medications. Patient also has chronic blood loss anemia and patient has been on ferrous sulfate. Patient was getting severe shortness of breath and accounts payable specialist has been consulted and Dr. Felicity Vasquez is going to see the patient today. Hemoglobin is still running and we will transfuse with a 1 unit of packed cells today. She is also known to have diabetes mellitus and this is being controlled with NovoLog sliding scale. Overall prognosis is guarded.
[2017-03-27] MEDS: cefTRIAXone 2,000 MG in SODIUM CHLORIDE 0.9% 100 ML IVPB SCH (20:03)
[2017-03-27] MEDS: methylPREDNISolone SOD SUCCI 125 MG/2 ML VIAL IV SCH (20:03)
[2017-03-27] MEDS: ATORVASTATIN 40 MG TAB PO SCH (20:04)
[2017-03-27] MEDS: traZODone HCL 50 MG TAB PO SCH (20:04)
[2017-03-27] MEDS: BUDESONIDE 0.5 MG/2 ML NEBU INHALATION SCH (20:38)
[2017-03-27 21:09] LABS: Glucose,Whole Blood 198 mg/dL (75-99)
[2017-03-27] MEDS: MONTELUKAST 10 MG TAB PO SCH (21:09)
[2017-03-27] MEDS: ONDANSETRON 4 MG/2 ML VIAL IVP PRN (21:41)
[2017-03-28] MEDS: methylPREDNISolone SOD SUCCI 125 MG/2 ML VIAL IV SCH ×4 (01:09→17:52)
[2017-03-28] MEDS: HYDROmorphone 1 MG/ML 1 ML SYRINGE IVP PRN ×6 (01:09→21:58)
[2017-03-28 06:14] LABS: Glucose,Whole Blood 189 mg/dL (75-99)
[2017-03-28] MEDS: INSULIN LISPRO (humaLOG) 300 UNIT/3 ML VIAL SQ SCH ×4 (06:46→21:48)
--- NOTE | 2017-03-28 07:30 | P.CONS ---
History of Present Illness - Chief Complaint Medical debility - History of Present Illness The patient was admitted to [facility] March [address] Dr. Castellon for antibiotic management. CTA negative for PE. Chest x- ray demonstrates bilateral effusions and right lower lobe patchy infiltrate. PT reports minimal assistance functional ability and gait 2 feet. OT reports supervision for upper dressing and minimal assistance for lower dressing, bathing, toileting, functional mobility. Previous functional history, as elicited from patient: 56-year-old right-handed white female who is lives in a second-floor apartment with . Sent disability related to heart multiple medical issues. does the cooking and laundry. They don't own a car. Patient describes independent with sponge bath and bed and wheelchair mobility. Regular doctors Dr. Eubanks. Family history of mother had TN. Review of Systems Review of systems: ENT: Denies sneezes or discharge. Eyes: Denies discharge or photophobia. Cardiac: Denies chest pain or palpitation. Pulmonary: At least mild shortness of breath. Breast: Denies discharge or lumps. Gastrointestinal: Denies nausea, emesis, constipation, diarrhea. Genitourinary: Denies discharge or frequency. Musculoskeletal: Mild generalized aches and pains. Neurologic: Generalized weakness which is chronic or long-standing. Endocrine: Denies shakes or sweats. Oncology: Denies cancers. Dermatologic: Denies rash, itching, pruritus. ALLERGY/immunology: Denies sneezes, rashes. Past Medical History Past Medical History: Atrial Fibrillation, Asthma, Heart Failure, COPD, Diabetes Mellitus, GERD/Reflux, GI Bleed, Liver Disease, Pneumonia, Renal Disease, Skin Disorder Additional Past Medical History / Comment(s): Severe mitral valve stenosis and severe tricuspid valve regurgitation, current decub lower back per pt, UTI with sepsis, anemia, elevated liver enzymes in the past, chronic renal dx, Afib and has had RVR in past. History of Any Multi-Drug Resistant Organisms: VRE Year Discovered:: 10/25/16 MDRO Source:: Urine Past Surgical History: Hysterectomy Additional Past Surgical History / Comment(s): 2 mitral valve balloon valvuloplasty, colonoscopy, PICC line insertion (since removed). Additional Past Anesthesia/Blood Transfusion Reaction / Comm: Pt has received blood in past without reaction. Past Psychological History: Anxiety Additional Psychological History / Comment(s): Single. Lives with adult daughter and her spouse. Has nebulizer and glucose monitor. no experience or international travel. No animal exposures. Positive tobacco use. No current alcohol or injection drug use Smoking Status: Current every day smoker Past Alcohol Use History: None Reported Additional Past Alcohol Use History / Comment(s): states heavier ETOH use in teens and 20's, none recent Past Drug Use History: None Reported - Past Family History Father Family Medical History: Dementia Additional Family Medical History / Comment(s): Father is in his 80's Mother Family Medical History: Myocardial Infarction (TN) Additional Family Medical History / Comment(s): valve disorder. Mother of a TN in her 30's Medications and Allergies Home Medications Medication Instructions Recorded Confirmed Type ALPRAZolam [Xanax] 0.25 mg PO BID PRN 05/19/15 03/21/17 History HYDROcodone/APAP 10-325MG [Morrison 1 tab PO Q8H PRN 05/19/15 03/21/17 History 10-325] Ipratropium/Albuterol Sulfate 1 puff INHALATION RT-QID PRN 05/19/15 03/21/17 History [Combivent Respimat Inhaler] Albuterol Nebulized [Ventolin 2.5 mg INHALATION RT-QID PRN 02/01/17 03/21/17 History Nebulized] Amiodarone [Cordarone] 200 mg PO BID 02/01/17 03/21/17 History Digoxin [Digitek] 125 mcg PO DAILY 02/01/17 03/21/17 History Ipratropium Nebulized [Atrovent 0.5 mg INHALATION RT-QID PRN 02/01/17 03/21/17 History Nebulized] Warfarin [Coumadin] 1.5 mg PO HS 02/01/17 03/21/17 History Allergies Allergy/AdvReac Type Severity Reaction Status Date / Time aspirin Allergy Unknown Verified 01/31/17 22:23 Physical Exam Vitals: Vital Signs Temp Pulse Pulse Resp BP BP Pulse Ox 03/28/17 04:00 97.8 F 71 18 127/72 100 03/28/17 00:00 98.1 F 95 20 125/74 96 03/27/17 20:41 80 03/27/17 20:31 80 03/27/17 20:00 96.7 F L 96 18 122/60 98 03/27/17 19:50 96.7 F L 96 18 122/60 98 03/27/17 16:34 98.0 F 100 110/60 99 03/27/17 16:15 92 03/27/17 16:04 97.7 F 101 H 116/54 100 03/27/17 16:00 93 110/60 98 03/27/17 15:54 97.4 F L 100 18 125/62 100 03/27/17 15:50 94 18 03/27/17 12:07 96 03/27/17 12:00 101 H 122/57 99 03/27/17 11:59 96 03/27/17 09:02 90 03/27/17 08:46 92 18 03/27/17 08:00 96.3 F L 77 112/66 100 Intake and Output 03/27/17 03/28/17 03/28/17 22:59 06:59 14:59 Intake Total 310 Output Total 1200 1150 Balance -890 -1150 Intake: Blood Product 310 Rc As-3 Unit 310 [id number] Output: Urine 1200 1150 Uretheral ([place]) 1150 Other: Voiding Method Indwelling Catheter Indwelling Catheter Weight 42.7 kg Skin: Mildly atrophic throughout. General: Thin build and comfortable appearance. Head: Normocephalic, atraumatic. Eyes: Symmetric. Pupils equal round. Ears: Symmetric. Hearing within normal limits. Mouth: Clear. Neck: Supple. Carotid without bruit. Cardiac: Regular rate and rhythm. Lungs: Clear anteriorly and posteriorly. Abdomen: Soft active nontender. Extremities: Normal tone. Neurological: Mental status: Alert, cooperative, pleasant. Cranial nerves: Symmetric facial tone and trapezius. Motor: Good movement arms poor movement legs.. Sensation: Intact throughout. DTRs: Symmetric and equal throughout. Mobility: Sits and stands with minimal assistance. Results CBC & Chem 7: 03/27/17 05:48 03/27/17 05:48 Labs: Abnormal Lab Results - Last 24 Hours (Table) 03/27/17 03/27/17 03/27/17 Range/Units 11:48 11:53 16:57 POC Glucose (mg/dL) 135 H 196 H (75-99) mg/dL Crossmatch See Detail 03/27/17 03/28/17 Range/Units 20:45 06:11 POC Glucose (mg/dL) 198 H 189 H (75-99) mg/dL Crossmatch Chest x-ray: report reviewed (Chest x-ray. Followed for pulmonary effusions and right lower lobe patchy infiltrate.) CT scan - chest: report reviewed (CTA chest negative for PE.) Assessment and Plan (1) Diastolic CHF, acute on chronic Status: Acute Plan: Impression: 1. Medical debility. 2. Acute on chronic congestive diastolic heart failure. 3. History of recurrent pneumonia. 4. Atrial flutter. Comments and plan: At this time PT and OT are ongoing. Patient has history of recurrent hospitalizations for pulmonary issues. In fact reports disability related to multiple medical issues. We'll follow therapies today. Hopefully patient just required tuneup over weekend and will have reachieved premorbid functional status. We'll follow closely with yourself.
[2017-03-28] MEDS: HYDROcodone/APAP 10-325MG 1 EACH TAB PO PRN ×3 (08:04→20:01)
[2017-03-28] MEDS: FUROSEMIDE 40 MG TAB PO SCH ×2 (08:04→17:52)
[2017-03-28] MEDS: hydrALAZINE HCL 25 MG TAB PO SCH ×2 (08:05→21:41)
[2017-03-28] MEDS: DOCUSATE 100 MG CAP PO SCH ×2 (08:05→21:41)
[2017-03-28] MEDS: ENOXAPARIN 40 MG/0.4 ML SYRINGE SQ SCH ×2 (08:06→21:48)
[2017-03-28] MEDS: IPRATROPIUM-ALBUTEROL 3 ML NEB INHALATION SCH ×4 (08:13→20:06)
[2017-03-28] MEDS: BUDESONIDE 0.5 MG/2 ML NEBU INHALATION SCH ×2 (08:13→20:06)
[2017-03-28] MEDS: ONDANSETRON 4 MG/2 ML VIAL IVP PRN (10:14)
[2017-03-28 12:09] LABS: Glucose,Whole Blood 231 mg/dL (75-99)
--- NOTE | 2017-03-28 13:03 | PN ---
DATE OF SERVICE: 03/28/2017 Ms. Mariah Loya is a 56-year-old female who was seen, evaluated, examined in the [facility] care. Clinically patient is doing better. She is status post blood transfusion of 1 unit, still short of breath. She remains on broad-spectrum antibiotics. Hemodynamic status is marginal, but stable. She gets short of breath on minimal activity and exertion. Her last chest x-ray performed 03/27/17 has been reviewed and compared with the prior x-ray. Continued to show problems associated with bilateral patchy infiltrate predominantly on the right side with a small effusion and basal atelectasis. Other laboratory data reviewed as well. The white cell count was 15,500 yesterday. Hemoglobin 7.8 and hematocrit 27, platelet count 219,000. Sodium 133, potassium 5.0, BUN and creatinine 42 and 0.8, CO2 is 41 to 42 though. Glucose is 198. Current medications are reviewed which include Tylenol with codeine 4 times a day, DuoNeb unit dose 4 times a day, Xanax as needed, Lipitor 40 mg daily, Pulmicort 2 times a day, Rocephin a gram daily, also on Lovenox 40 mg daily, Lasix 40 mg p.o. 2 times a day, hydralazine 25 mg p.o. 2 times a day, Dilaudid for pain control, also on sliding scale insulin, Solu-Medrol 60 q.6 hourly, Singulair 10 mg daily, morphine, nitroglycerin, trazodone. On examination, vitals include blood pressure 111/62, respiratory rate 16, pulse 72, temperature is 96.4, saturation of 100% on 3 L oxygen. HEENT: Unremarkable. NECK: Supple. LUNGS: Good air entry bilaterally. HEART: Regular rate and rhythm. S1 and S2 audible. ABDOMEN: Soft. NEUROLOGICAL EXAMINATION: Otherwise, awake and alert. Labs reviewed. Medications reviewed. IMPRESSION: 1. Acute chronic obstructive pulmonary disease exacerbation. 2. Right lower lobe pneumonia. 3. Valvular heart disease associated with mitral stenosis of severe category. 4. Chronic anemia 5. Rheumatic heart disease. 6. Left lower lobe nodule versus infiltrate. Would recommend a follow up in outpatient setting. 7. Pulmonary hypertension. 8. Mediastinal lymphadenopathy, likely reactive related to pneumonia. Will follow.
[2017-03-28] MEDS: ALPRAZolam 0.25 MG TAB PO PRN (13:56)
[2017-03-28 17:06] LABS: Glucose,Whole Blood 133 mg/dL (75-99)
--- NOTE | 2017-03-28 20:44 | P.PN ---
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 She's not been feeling well for several days. Nose that she's having ongoing difficulties with her pulmonary status. This thought to have another episode of pneumonia. She has significant weakness sputum production and fever. Fortunately not requiring ICU stay at this time. She feels slightly better since coming to hospital. But as for oxygens even working. We prove that she is receiving oxygen at 4 L but she is still somewhat short of breath. She feels quite poorly overall. She has mild cough with scant sputum production. At admission she was found evidence of atrial fibrillation was rate controlled she has not responded well to amiodarone in the past. Is noted she complains a beget weakness but denies chills or rigors. Patient is now had diuresis. was feeling somewhat better. Still very weak. short of breath today. But likely will be going home soon Objective - Vital Signs Vital signs: Vital Signs Temp 97.3 F L 03/28/17 17:00 Pulse 90 03/28/17 20:19 Resp 18 03/28/17 17:00 BP 139/66 03/28/17 17:00 Pulse Ox 100 03/28/17 17:00 Intake & Output 03/28/17 03/28/17 03/29/17 06:59 18:59 06:59 Intake Total 310 1080 Output Total 1150 475 Balance -840 605 Weight 42.7 kg 42.7 kg Intake: Oral 1080 Blood Product 310 Rc As-3 Unit 310 [id number] Output: Urine 1150 475 Uretheral ([place]) 1150 Other: Voiding Method Indwelling Catheter Indwelling Catheter - Exam 56-year-old woman who looks much older than her stated age. She is chronically ill. HEENT: Anicteric conjunctiva are pink and moist nasal mucosa grossly intact without significant lesions, there is no thrush. Poor dentition Neck: The neck is supple without significant lymphadenopathy or thyromegaly. Lungs: Symmetrical air entry with wheezes scattered throughout the lung iqbal. Basilar crackles are heard. No dullness or egophony Heart: Irregularly irregular no S3 loud S4 There is no significant murmur click or rub, PMI was nondisplaced. Abdomen: Positive bowel sounds soft and nontender without palpable masses or organomegaly. There was no guarding or rebound. Extremities: The extremities have just trace edema. She has no tenderness over the joints. Skin the patient has changes of diabetes her lower extremities however she has a difficulty with chronically picking at her skin and has innumerable lesions that healed over arms and legs at this time. None of them are open are grossly draining at this time Neuro: She is awake alert oriented to person place and time and does not exhibit any acute gross focal sensory motor deficits - Labs CBC & Chem 7: 03/27/17 05:48 03/27/17 05:48 Labs: Abnormal Lab Results - Last 24 Hours (Table) 03/27/17 03/28/17 03/28/17 Range/Units 20:45 06:11 12:04 POC Glucose (mg/dL) 198 H 189 H 231 H (75-99) mg/dL 03/28/17 Range/Units 17:01 POC Glucose (mg/dL) 133 H (75-99) mg/dL Laboratory Results WBC 15.5 k/uL (3.8-10.6) H 03/27/17 05:48 RBC 3.94 m/uL (3.80-5.40) 03/27/17 05:48 Hgb 7.8 gm/dL (11.4-16.0) L 03/27/17 05:48 Hct 27.7 % (34.0-46.0) L 03/27/17 05:48 MCV 70.3 fL (80.0-100.0) L 03/27/17 05:48 MCH 19.9 pg (25.0-35.0) L 03/27/17 05:48 MCHC 28.3 g/dL (31.0-37.0) L 03/27/17 05:48 RDW 15.7 % (11.5-15.5) H 03/27/17 05:48 Plt Count 219 k/uL (150-450) 03/27/17 05:48 Neutrophils % 85 % 03/27/17 05:48 Lymphocytes % 7 % 03/27/17 05:48 Monocytes % 5 % 03/27/17 05:48 Eosinophils % 1 % 03/27/17 05:48 Basophils % 0 % 03/27/17 05:48 Neutrophils # 13.2 k/uL (1.3-7.7) H 03/27/17 05:48 Lymphocytes # 1.1 k/uL (1.0-4.8) 03/27/17 05:48 Monocytes # 0.8 k/uL (0-1.0) 03/27/17 05:48 Eosinophils # 0.1 k/uL (0-0.7) 03/27/17 05:48 Basophils # 0.0 k/uL (0-0.2) 03/27/17 05:48 Hypochromasia Marked 03/27/17 05:48 Poikilocytosis Slight 03/21/17 01:21 Microcytosis Moderate 03/27/17 05:48 PT 15.0 sec (9.0-12.0) H 03/24/17 06:08 INR 1.5 (<1.1) 03/24/17 06:08 APTT 31.5 sec (22.0-30.0) H 03/21/17 09:02 D-Dimer 1.25 mg/L FEU (<0.60) H 03/21/17 01:21 Sodium 133 mmol/L (137-145) L 03/27/17 05:48 Potassium 5.0 mmol/L (3.5-5.1) 03/27/17 05:48 Chloride 87 mmol/L (98-107) L 03/27/17 05:48 Carbon Dioxide 41 mmol/L (22-30) H* 03/27/17 05:48 Anion Gap 5 mmol/L 03/27/17 05:48 BUN 42 mg/dL (7-17) H 03/27/17 05:48 Creatinine 0.80 mg/dL (0.52-1.04) 03/27/17 05:48 Est GFR (MDRD) Af Amer >60 (>60 ml/min/1.73 sqM) 03/27/17 05:48 Est GFR (MDRD) Non-Af >60 (>60 ml/min/1.73 sqM) 03/27/17 05:48 Glucose 128 mg/dL (74-99) H 03/27/17 05:48 POC Glucose (mg/dL) 133 mg/dL (75-99) H 03/28/17 17:01 POC Glu Supervisor Display Fabrication ID [id number] De 03/28/17 17:[address] Glu mg/dL 85 mg/dL 03/21/17 09:02 Hemoglobin A1c 4.6 % (4.2-6.1) 03/21/17 09:02 Calcium 8.7 mg/dL (8.4-10.2) 03/27/17 05:48 Iron <10 ug/dL (37-170) L 03/21/17 09:02 TIBC 210 ug/dL (265-497) L 03/21/17 09:02 % Saturation <4.8 % (20-50) L 03/21/17 09:02 Ferritin 767 ng/mL (11-264) H 03/21/17 09:02 Total Bilirubin 1.1 mg/dL (0.2-1.3) 03/21/17 01:21 AST 39 U/L (14-36) H 03/21/17 01:21 ALT 33 U/L (9-52) 03/21/17 01:21 Alkaline Phosphatase 126 U/L (38-126) 03/21/17 01:21 Total Creatine Kinase 53 U/L (30-135) 03/21/17 09:02 CK-MB (CK-2) 2.2 ng/mL (0.0-2.4) 03/21/17 09:02 CK-MB (CK-2) Rel Index 4.2 03/21/17 09:02 Troponin I 0.051 ng/mL (0.000-0.034) H* 03/21/17 09:02 NT-Pro-B Natriuret Pep 4680 pg/mL 03/27/17 05:48 Total Protein 6.1 g/dL (6.3-8.2) L 03/21/17 01:21 Albumin 3.1 g/dL (3.5-5.0) L 03/21/17 01:21 Triglycerides 79 mg/dL (<150) 03/22/17 06:05 Cholesterol 107 mg/dL (<200) 03/22/17 06:05 LDL Cholesterol, Calc 44 mg/dL (0-99) 03/22/17 06:05 HDL Cholesterol 47 mg/dL (40-60) 03/22/17 06:05 TSH 4.470 mIU/L (0.465-4.680) 03/21/17 09:02 Digoxin 2.0 ng/mL 03/21/17 09:02 IgE 114.00 IU/mL (0.00-114.00) 03/27/17 05:48 Blood Type O Positive 03/27/17 11:48 Blood Type Recheck No 03/27/17 11:48 Antibody Screen NEGATIVE 03/27/17 11:48 Crossmatch See Detail 03/27/17 11:48 Spec Expiration Date 03/30/2017234703/27/17 11:48 Assessment and Plan (1) COPD (chronic obstructive pulmonary disease) Narrative/Plan: 56-year-old female who is advanced COPD is oxygen and inhaled steroid dependent carefully continues to smoke. Presents to Hospital feeling very weak and ill. His been seen by cardiology. His been instructed to take no further amiodarone to ensure there is no toxicity to her pulmonary system from this medication. Rate controlled with digitalis and calcium channel blockers is being utilized. She still feels quite short of breath. Receiving multiple respiratory treatments. As well as oral steroid therapy. She may feel slowly better than admission. She has received some diuresis. At this time with exacerbation of her COPD and her history of MSSA, ceftriaxone will be given while cultures are in process. Her leukocytosis is multifactorial including her steroid therapy and acute exacerbation of her underlying lung disease. Smoking cessation is again discussed. With diuresis was feeling better. Has been waxing and waning, is candidate for palliative care. Following with cardiology. We'll not be planning on long-term IV antibiotic therapy. She ready for discharge home for completion course of therapy with cefuroxime 500 mg every 12 hours for 7 days will be given. It appears to be going to her home setting instead of extended care. Predict this will not allow her to do well. Status: Acute (2) Leukocytosis Status: Acute
[2017-03-28 21:10] LABS: Glucose,Whole Blood 198 mg/dL (75-99)
[2017-03-28] MEDS: ATORVASTATIN 40 MG TAB PO SCH (21:41)
[2017-03-28] MEDS: MONTELUKAST 10 MG TAB PO SCH (21:41)
[2017-03-28] MEDS: traZODone HCL 50 MG TAB PO SCH (21:41)
[2017-03-28] MEDS: cefTRIAXone 2,000 MG in SODIUM CHLORIDE 0.9% 100 ML IVPB SCH (21:57)
--- NOTE | 2017-03-28 23:23 | PN ---
DATE OF SERVICE: 03/28/2017 This 56-year-old white female who was admitted with acute on chronic congestive heart failure and chronic obstructive pulmonary disease with acute exacerbation and possible basilar pneumonia and patient was started on IV antibiotics, updraft treatments and patient was seen by Dr. Felicity Vasquez in consultation and also seen by cupola melting supervisor in consultation. Patient was treated aggressively with diuretics and patient is receiving IV antibiotics. Patient was receiving IV antibiotics, updraft treatments and IV Solu-Medrol. She has very severe mitral stenosis and combined systolic and diastolic congestive heart failure. Overall prognosis is guarded. Patient seems to be breathing a little easier and her BNP is markedly elevated. However, the patient refused to go to rehab center when discharged. The patient also had severe anemia and she received 1 unit of packed cells transfusion yesterday and her hemoglobin is 8.1 and if her condition is stable, she will possibly be discharged home tomorrow.
[2017-03-29] MEDS: methylPREDNISolone SOD SUCCI 125 MG/2 ML VIAL IV SCH ×2 (00:13→06:22)
[2017-03-29] MEDS: ALPRAZolam 0.25 MG TAB PO PRN ×2 (00:19→15:16)
[2017-03-29] MEDS: HYDROmorphone 1 MG/ML 1 ML SYRINGE IVP PRN ×5 (02:34→20:10)
[2017-03-29] MEDS: HYDROcodone/APAP 10-325MG 1 EACH TAB PO PRN ×4 (04:05→22:47)
[2017-03-29 06:01] LABS: Glucose,Whole Blood 208 mg/dL (75-99)
[2017-03-29] MEDS: INSULIN LISPRO (humaLOG) 300 UNIT/3 ML VIAL SQ SCH ×4 (06:22→20:55)
[2017-03-29 07:00] LABS: INR 1.1 (<1.1); Prothrombin Time 10.9 sec (9.0-12.0)
[2017-03-29 07:01] LABS: Anisocytosis Slight; Basophils % (A) 0 %; CH 21.6; CHCM 30.2; Eosinophils % (A) 0 %; HCT 30.7 % (34.0-46.0); HDW 4.08; HGB 9.2 gm/dL (11.4-16.0); Hypochromasia Marked; Luc # (Auto) 0.23; Luc % (Auto) 1; Lymphocytes # (A) 1.3 k/uL (1.0-4.8); Lymphocytes % (A) 6 %; MCH 21.5 pg (25.0-35.0); MCHC 30.1 g/dL (31.0-37.0); MCV 71.4 fL (80.0-100.0); Mean Platelet Volume 6.8; Microcytosis Moderate; Monocytes # (A) 0.8 k/uL (0-1.0); Monocytes % (A) 4 %; Neutrophils # (A) 18.5 k/uL (1.3-7.7); Neutrophils % (A) 89 %; Poikilocytosis Moderate; RDW 17.1 % (11.5-15.5); WBC 20.8 k/uL (3.8-10.6); WBC (Perox) 22.13
[2017-03-29 07:08] LABS: Anion Gap 6 mmol/L; Blood Urea Nitrogen 49 mg/dL (7-17); Carbon Dioxide 37 mmol/L (22-30); Chloride 88 mmol/L (98-107); Glucose 178 mg/dL (74-99); Non-African American GFR(MDRD) >60 (>60 ml/min/1.73 sqM); Potassium 5.5 mmol/L (3.5-5.1); Sodium 131 mmol/L (137-145)
[2017-03-29] MEDS: BUDESONIDE 0.5 MG/2 ML NEBU INHALATION SCH ×2 (07:56→20:27)
[2017-03-29] MEDS: IPRATROPIUM-ALBUTEROL 3 ML NEB INHALATION SCH ×4 (07:56→20:27)
[2017-03-29] MEDS: ENOXAPARIN 40 MG/0.4 ML SYRINGE SQ SCH ×2 (09:07→20:10)
[2017-03-29] MEDS: FUROSEMIDE 40 MG TAB PO SCH ×2 (09:09→15:16)
[2017-03-29] MEDS: hydrALAZINE HCL 25 MG TAB PO SCH ×2 (09:09→20:10)
[2017-03-29] MEDS: DOCUSATE 100 MG CAP PO SCH ×2 (09:09→20:10)
--- NOTE | 2017-03-29 09:44 | PN ---
DATE OF SERVICE: 03/29/2017 Ms. Mariah Loya is seen, evaluated, and examined in on sixth floor. She is sitting upright in the bed, breathing comfortably. She is on supplemental oxygen. She gets short of breath on activity and exertion. Still has intermittent cough. Patient has been on steroids which is gradually being tapered down. Her last set of vitals include blood pressure is 102/68, respiratory rate 16 to 18, temperature is 98, saturation of 99% on 3 L oxygen. HEENT EXAMINATION: Otherwise unremarkable. NECK: Supple. Neck veins are prominent with a significant JVD up to the neck which is not much changed from baseline. No bruits present. No significant lymphadenopathy. LUNGS: Bilateral good air entry with crackles at the bases and a few scattered expiratory rhonchi. HEART: Regular rate and rhythm, 2/6 systolic murmur is present all over the precordium. ABDOMEN: Soft. EXTREMITIES: Chronic changes in the skin along with edema, not much change from baseline. The laboratory data reviewed. White cell count is up to 20,800, hemoglobin 9.2 hematocrit 30, platelet count 266,000. MCV is only 71. Sodium is 131, potassium 5.5. BUN and creatinine 49 and 0.7. Current medications are reviewed and include Tylenol with Codeine 4 times a day, DuoNeb unit dose 4 times a day, Xanax as needed, Lipitor 40 mg daily, Pulmicort 2 times a day, Rocephin 1 gram daily, also on Lovenox, Lasix, hydralazine, Dilaudid, Solu-Medrol 60 q.6 hourly, Singulair, morphine, Nitrostat, Zofran and trazodone. IMPRESSION: 1. Acute chronic obstructive pulmonary disease exacerbation and tracheobronchitis. 2. Acute on chronic hypoxic respiratory failure related to severe chronic obstructive pulmonary disease. 3. Severe degree of mitral stenosis with patient empirically being treated with Rocephin for tracheobronchitis. The patient is being considered for Ceftin down the road though. 4. Valvular heart disease. 5. Cardiomyopathy with acute on chronic systolic heart failure. 6. History of methicillin-susceptible Staphylococcus aureus. Plan and recommendation: Will lower down the Solu-Medrol to 40 mg q.8; hopefully in the next 24 to 48 hours we will change it to oral prednisone. The patient will likely require small dose maintenance prednisone like 10 mg daily. Continue breathing treatments. Continue supportive care. Prognosis overall is guarded though.
[2017-03-29 11:54] LABS: Glucose,Whole Blood 225 mg/dL (75-99)
[2017-03-29] MEDS: methylPREDNISolone SOD SUCCI 40 MG/ML 1 ML VIAL IV SCH (12:17)
[2017-03-29 16:44] LABS: Glucose,Whole Blood 156 mg/dL (75-99)
--- NOTE | 2017-03-29 16:44 | PN ---
This is a 56-year-old white female who is known to have severe mitral stenosis and chronic atrial fibrillation and chronic congestive heart failure, chronic obstructive pulmonary disease. The patient was brought to the emergency room with increasing shortness of breath and also edema of the lower extremities and the patient was found to have acute on chronic congestive heart failure and also acute exacerbation of COPD and also she had a pleural effusion and basilar infiltrate. Patient was started on IV antibiotics, updraft treatments and IV Solu-Medrol. The patient was seen by Dr. Hinds in consultation for her lung problems. The patient was also seen by [facility] in consultation and patient was aggressively treated with diuretics and placed back on her previous home medications and gradually congestive heart failure started improving with improvement in her symptoms. The patient also was seen by Dr. Hinds in consultation and patient's overall respiratory symptoms were improving. Dr. Hinds saw the patient today and he felt that the Solu-Medrol gradually cut down the dose and switch her to oral prednisone in 2 to 3 days. The patient currently the Solu-Medrol has been cut down to 40 mg IV q.8 hours and possibly tomorrow she will be switched to oral prednisone. She will be able to go home whenever it is okay with Dr. Hinds. Prognosis guarded.
[2017-03-29] MEDS: traZODone HCL 50 MG TAB PO SCH (20:10)
[2017-03-29] MEDS: cefTRIAXone 2,000 MG in SODIUM CHLORIDE 0.9% 100 ML IVPB SCH (20:10)
[2017-03-29] MEDS: ATORVASTATIN 40 MG TAB PO SCH (20:10)
[2017-03-29] MEDS: MONTELUKAST 10 MG TAB PO SCH (20:10)
[2017-03-29] MEDS: ONDANSETRON 4 MG/2 ML VIAL IVP PRN (20:19)
[2017-03-29 20:36] LABS: Glucose,Whole Blood 171 mg/dL (75-99)
[2017-03-30] MEDS: HYDROmorphone 1 MG/ML 1 ML SYRINGE IVP PRN ×6 (00:17→22:20)
[2017-03-30] MEDS: methylPREDNISolone SOD SUCCI 40 MG/ML 1 ML VIAL IV SCH ×2 (01:55→12:08)
[2017-03-30] MEDS: HYDROcodone/APAP 10-325MG 1 EACH TAB PO PRN ×3 (04:13→19:31)
[2017-03-30] MEDS: ONDANSETRON 4 MG/2 ML VIAL IVP PRN (05:28)
[2017-03-30] MEDS: IPRATROPIUM-ALBUTEROL 3 ML NEB INHALATION PRN (05:41)
[2017-03-30] MEDS: IPRATROPIUM-ALBUTEROL 3 ML NEB INHALATION SCH ×4 (07:32→20:28)
[2017-03-30] MEDS: BUDESONIDE 0.5 MG/2 ML NEBU INHALATION SCH ×2 (07:33→20:28)
[2017-03-30 07:34] LABS: Glucose,Whole Blood 196 mg/dL (75-99)
[2017-03-30] MEDS: INSULIN LISPRO (humaLOG) 300 UNIT/3 ML VIAL SQ SCH ×4 (08:20→22:14)
[2017-03-30] MEDS: DOCUSATE 100 MG CAP PO SCH ×2 (08:20→19:31)
[2017-03-30] MEDS: ENOXAPARIN 40 MG/0.4 ML SYRINGE SQ SCH ×2 (08:20→19:31)
[2017-03-30] MEDS: FUROSEMIDE 40 MG TAB PO SCH ×2 (08:20→17:29)
[2017-03-30] MEDS: hydrALAZINE HCL 25 MG TAB PO SCH ×2 (08:21→19:32)
[2017-03-30 12:45] LABS: Glucose,Whole Blood 110 mg/dL (75-99)
[2017-03-30] MEDS: ALPRAZolam 0.25 MG TAB PO PRN (13:20)
[2017-03-30 13:50] LABS: Creatine Kinase MB 1.7 ng/mL (0.0-2.4)
[2017-03-30 14:11] LABS: Troponin I 0.04 ng/mL (0.000-0.034)
[2017-03-30 18:19] LABS: Glucose,Whole Blood 211 mg/dL (75-99)
[2017-03-30] MEDS: traZODone HCL 50 MG TAB PO SCH (19:28)
[2017-03-30] MEDS: cefTRIAXone 2,000 MG in SODIUM CHLORIDE 0.9% 100 ML IVPB SCH (19:30)
[2017-03-30] MEDS: ATORVASTATIN 40 MG TAB PO SCH (19:31)
[2017-03-30] MEDS: MONTELUKAST 10 MG TAB PO SCH (19:32)
[2017-03-30 21:01] LABS: Glucose,Whole Blood 110 mg/dL (75-99)
[2017-03-30] MEDS ORDERED: BENZOCAINE/MENTHOL LOZENG 1 EACH LOZENGE MUCOUS MEM PRN (22:11)
[2017-03-31] MEDS: HYDROcodone/APAP 10-325MG 1 EACH TAB PO PRN ×4 (01:32→22:21)
[2017-03-31] MEDS: HYDROmorphone 1 MG/ML 1 ML SYRINGE IVP PRN ×5 (03:26→20:57)
[2017-03-31] MEDS ORDERED: SODIUM CHLORIDE 0.65% NASAL SPRAY 44 ML BTL NASAL PRN (03:34)
[2017-03-31 07:07] LABS: Glucose,Whole Blood 96 mg/dL (75-99)
[2017-03-31] MEDS: INSULIN LISPRO (humaLOG) 300 UNIT/3 ML VIAL SQ SCH ×4 (07:37→22:26)
[2017-03-31] MEDS: hydrALAZINE HCL 25 MG TAB PO SCH ×2 (07:38→21:05)
[2017-03-31] MEDS: ENOXAPARIN 40 MG/0.4 ML SYRINGE SQ SCH ×2 (07:38→21:05)
[2017-03-31] MEDS: DOCUSATE 100 MG CAP PO SCH ×2 (07:39→21:05)
[2017-03-31] MEDS: FUROSEMIDE 40 MG TAB PO SCH ×2 (07:39→17:39)
[2017-03-31] MEDS: BUDESONIDE 0.5 MG/2 ML NEBU INHALATION SCH ×2 (07:51→20:17)
[2017-03-31] MEDS: IPRATROPIUM-ALBUTEROL 3 ML NEB INHALATION SCH ×4 (07:51→20:17)
[2017-03-31] MEDS ORDERED: predniSONE 20 MG TAB PO SCH (09:00)
[2017-03-31 11:58] LABS: Glucose,Whole Blood 178 mg/dL (75-99)
[2017-03-31 17:42] LABS: Glucose,Whole Blood 162 mg/dL (75-99)
--- NOTE | 2017-03-31 17:42 | PN ---
DATE OF SERVICE: 03/31/2017 This is a 56-year-old white female who was admitted with acute on chronic congestive heart failure and chronic obstructive pulmonary disease with acute exacerbation. Patient is known to have very severe mitral and slightly chronic systolic and diastolic heart failure. The patient was started on IV antibiotics, by wendy Monique and IV Solu-Medrol and also was seen by [facility] in consultation and they were following the patient. Patient has been receiving IV Lasix and patient's overall condition is slightly improved but he is still extremely weak and he has nowhere to go when discharged because she is in the process of moving to one of her friend's basement. The patient is too weak to take care of herself. Coal Trimmer Machine Operator has discussed her situation and she has agreed to go to [facility] unit when discharged and accordingly social studies department chair are making arrangements and she will be transferred to [facility] rehab unit when a bed is available.
--- NOTE | 2017-03-31 17:43 | PN ---
DATE OF SERVICE: ( ) 2016 This is a 56-year-old white female who was admitted with severe shortness of breath and general weakness. She was admitted with a diagnosis of acute on chronic congestive heart failure, acute exacerbation of COPD, possible bilateral basilar pneumonia. Patient was started on IV antibiotics, updraft treatments and IV Solu-Medrol. Also she was seen by [facility] in consultation. She was aggressively treated with diuretics. She was also seen by Dr. Hinds in consultation. Her symptoms improved, but she was still extremely weak and was using nasal oxygen constantly. She was found to be too weak and too sick to go home when discharged. Apparently she does not have a home now, and she is going to stay in a basement of a friend's place. Patient is not able to take care of herself. Will have Director Of Knowledge Management discuss this situation again with the patient. She was advised to go to [facility] rehab unit for some time when discharges. Overall prognosis is guarded. In the meantime, we will continue current medications.
--- NOTE | 2017-03-31 18:55 | PN ---
DATE OF SERVICE: 03/31/2017 Clinically, the patient is still short of breath. Overall, generalized weakness present. Care plan discussed with Dr. Eubanks, primary service. Plan is to taper down the steroids to bring it baseline to 10 mg daily. Continue other breathing treatment. Right now, the patient has been switched to oral prednisone. Her last set of vitals include blood pressure is 124/82, respirations 16, pulse 106, temperature 97, saturation 98% on 3L oxygen. NECK: Supple. Prominent JVD is present. HEENT: Unremarkable. LUNGS: Bilateral good air entry with a few crackles at bases. HEART: Regular rate and rhythm. ABDOMEN: Soft. NEUROLOGICAL EXAMINATION: Otherwise, awake and alert. Labs reviewed. Medications reviewed as well. IMPRESSION: 1. Acute chronic obstructive pulmonary disease exacerbation. 2. Methicillin-resistant Staphylococcus aureus tracheobronchitis. 3. Acute on chronic hypoxic respiratory failure. 4. Severe degree of mitral stenosis and rheumatic heart disease. 5. Chronic atrial fibrillation, well anticoagulated. Plan is to continue supportive care. Follow clinical course closely. Leukocytosis likely related to steroids. Would recommend to lower down the prednisone to 30 mg today.
[2017-03-31] MEDS: traZODone HCL 50 MG TAB PO SCH (20:53)
[2017-03-31] MEDS: ALPRAZolam 0.25 MG TAB PO PRN (20:58)
[2017-03-31] MEDS: cefTRIAXone 2,000 MG in SODIUM CHLORIDE 0.9% 100 ML IVPB SCH (21:04)
--- NOTE | 2017-03-31 21:04 | P.PN ---
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 She's not been feeling well for several days. Nose that she's having ongoing difficulties with her pulmonary status. This thought to have another episode of pneumonia. She has significant weakness sputum production and fever. Fortunately not requiring ICU stay at this time. She feels slightly better since coming to hospital. But as for oxygens even working. We prove that she is receiving oxygen at 4 L but she is still somewhat short of breath. She feels quite poorly overall. She has mild cough with scant sputum production. At admission she was found evidence of atrial fibrillation was rate controlled she has not responded well to amiodarone in the past. Is noted she complains a beget weakness but denies chills or rigors. Patient is now had diuresis. was feeling somewhat better. Still very weak. short of breath today. But likely will be going home soon Objective - Vital Signs Vital signs: Vital Signs Temp 97.6 F 03/31/17 15:00 Pulse 100 03/31/17 20:32 Resp 20 03/31/17 15:00 BP 121/74 03/31/17 15:00 Pulse Ox 99 03/31/17 15:00 Intake & Output 03/31/17 03/31/17 04/01/17 06:59 18:59 06:59 Intake Total 1500 Output Total 1525 Balance -25 Weight 47 kg 47 kg Intake: IV 20 0.9 20 Oral 1480 Output: Urine 1525 Uretheral ([place]) 1000 Other: Voiding Method Indwelling Catheter Indwelling Catheter # Voids 2 # Bowel Movements 1 - Exam 56-year-old woman who looks much older than her stated age. She is chronically ill. HEENT: Anicteric conjunctiva are pink and moist nasal mucosa grossly intact without significant lesions, there is no thrush. Poor dentition Neck: The neck is supple without significant lymphadenopathy or thyromegaly. Lungs: Symmetrical air entry with wheezes scattered throughout the lung iqbal. Basilar crackles are heard. No dullness or egophony Heart: Irregularly irregular no S3 loud S4 There is no significant murmur click or rub, PMI was nondisplaced. Abdomen: Positive bowel sounds soft and nontender without palpable masses or organomegaly. There was no guarding or rebound. Extremities: The extremities have just trace edema. She has no tenderness over the joints. Skin the patient has changes of diabetes her lower extremities however she has a difficulty with chronically picking at her skin and has innumerable lesions that healed over arms and legs at this time. None of them are open are grossly draining at this time Neuro: She is awake alert oriented to person place and time and does not exhibit any acute gross focal sensory motor deficits - Labs CBC & Chem 7: 03/29/17 06:20 03/29/17 06:20 Labs: Abnormal Lab Results - Last 24 Hours (Table) 03/31/17 03/31/17 Range/Units 11:56 17:38 POC Glucose (mg/dL) 178 H 162 H (75-99) mg/dL Laboratory Results WBC 20.8 k/uL (3.8-10.6) H 03/29/17 06:20 RBC 4.30 m/uL (3.80-5.40) 03/29/17 06:20 Hgb 9.2 gm/dL (11.4-16.0) L 03/29/17 06:20 Hct 30.7 % (34.0-46.0) L 03/29/17 06:20 MCV 71.4 fL (80.0-100.0) L 03/29/17 06:20 MCH 21.5 pg (25.0-35.0) L 03/29/17 06:20 MCHC 30.1 g/dL (31.0-37.0) L 03/29/17 06:20 RDW 17.1 % (11.5-15.5) H 03/29/17 06:20 Plt Count 266 k/uL (150-450) 03/29/17 06:20 Neutrophils % 89 % 03/29/17 06:20 Lymphocytes % 6 % 03/29/17 06:20 Monocytes % 4 % 03/29/17 06:20 Eosinophils % 0 % 03/29/17 06:20 Basophils % 0 % 03/29/17 06:20 Neutrophils # 18.5 k/uL (1.3-7.7) H 03/29/17 06:20 Lymphocytes # 1.3 k/uL (1.0-4.8) 03/29/17 06:20 Monocytes # 0.8 k/uL (0-1.0) 03/29/17 06:20 Eosinophils # 0.0 k/uL (0-0.7) 03/29/17 06:20 Basophils # 0.0 k/uL (0-0.2) 03/29/17 06:20 Hypochromasia Marked 03/29/17 06:20 Poikilocytosis Moderate 03/29/17 06:20 Anisocytosis Slight 03/29/17 06:20 Microcytosis Moderate 03/29/17 06:20 PT 10.9 sec (9.0-12.0) 03/29/17 06:20 INR 1.1 (<1.1) 03/29/17 06:20 APTT 31.5 sec (22.0-30.0) H 03/21/17 09:02 D-Dimer 1.25 mg/L FEU (<0.60) H 03/21/17 01:21 Sodium 131 mmol/L (137-145) L 03/29/17 06:20 Potassium 5.5 mmol/L (3.5-5.1) H 03/29/17 06:20 Chloride 88 mmol/L (98-107) L 03/29/17 06:20 Carbon Dioxide 37 mmol/L (22-30) H 03/29/17 06:20 Anion Gap 6 mmol/L 03/29/17 06:20 BUN 49 mg/dL (7-17) H 03/29/17 06:20 Creatinine 0.70 mg/dL (0.52-1.04) 03/29/17 06:20 Est GFR (MDRD) Af Amer >60 (>60 ml/min/1.73 sqM) 03/29/17 06:20 Est GFR (MDRD) Non-Af >60 (>60 ml/min/1.73 sqM) 03/29/17 06:20 Glucose 178 mg/dL (74-99) H 03/29/17 06:20 POC Glucose (mg/dL) 162 mg/dL (75-99) H 03/31/17 17:38 POC Glu Formal Service Waiter ID Renetta Hartmann 03/31/17 17:[address] Glu mg/dL 85 mg/dL 03/21/17 09:02 Hemoglobin A1c 4.6 % (4.2-6.1) 03/21/17 09:02 Calcium 9.0 mg/dL (8.4-10.2) 03/29/17 06:20 Iron <10 ug/dL (37-170) L 03/21/17 09:02 TIBC 210 ug/dL (265-497) L 03/21/17 09:02 % Saturation <4.8 % (20-50) L 03/21/17 09:02 Ferritin 767 ng/mL (11-264) H 03/21/17 09:02 Total Bilirubin 1.1 mg/dL (0.2-1.3) 03/21/17 01:21 AST 39 U/L (14-36) H 03/21/17 01:21 ALT 33 U/L (9-52) 03/21/17 01:21 Alkaline Phosphatase 126 U/L (38-126) 03/21/17 01:21 Total Creatine Kinase 53 U/L (30-135) 03/21/17 09:02 CK-MB (CK-2) 1.7 ng/mL (0.0-2.4) 03/30/17 13:01 CK-MB (CK-2) Rel Index 4.2 03/21/17 09:02 Troponin I 0.040 ng/mL (0.000-0.034) H* 03/30/17 13:01 NT-Pro-B Natriuret Pep 4680 pg/mL 03/27/17 05:48 Total Protein 6.1 g/dL (6.3-8.2) L 03/21/17 01:21 Albumin 3.1 g/dL (3.5-5.0) L 03/21/17 01:21 Triglycerides 79 mg/dL (<150) 03/22/17 06:05 Cholesterol 107 mg/dL (<200) 03/22/17 06:05 LDL Cholesterol, Calc 44 mg/dL (0-99) 03/22/17 06:05 HDL Cholesterol 47 mg/dL (40-60) 03/22/17 06:05 TSH 4.470 mIU/L (0.465-4.680) 03/21/17 09:02 Digoxin 2.0 ng/mL 03/21/17 09:02 IgE 114.00 IU/mL (0.00-114.00) 03/27/17 05:48 Blood Type O Positive 03/27/17 11:48 Blood Type Recheck No 03/27/17 11:48 Antibody Screen NEGATIVE 03/27/17 11:48 Crossmatch See Detail 03/27/17 11:48 Spec Expiration Date 03/30/2017234703/27/17 11:48 Assessment and Plan (1) COPD (chronic obstructive pulmonary disease) Narrative/Plan: 56-year-old female who is advanced COPD is oxygen and inhaled steroid dependent carefully continues to smoke. Presents to Hospital feeling very weak and ill. His been seen by cardiology. His been instructed to take no further amiodarone to ensure there is no toxicity to her pulmonary system from this medication. Rate controlled with digitalis and calcium channel blockers is being utilized. She still feels quite short of breath. Receiving multiple respiratory treatments. As well as oral steroid therapy. She may feel slowly better than admission. She has received some diuresis. At this time with exacerbation of her COPD and her history of MSSA, ceftriaxone will be given while cultures are in process. Her leukocytosis is multifactorial including her steroid therapy and acute exacerbation of her underlying lung disease. Smoking cessation is again discussed. With diuresis was feeling better. Has been waxing and waning, is candidate for palliative care. Following with cardiology. We'll not be planning on long-term IV antibiotic therapy. She ready for discharge home for completion course of therapy with cefuroxime 500 mg every 12 hours for 7 days will be given. It appears to be going to extended care. Hopefully will allow some further improvement. Status: Acute (2) Leukocytosis Status: Acute
[2017-03-31] MEDS: ATORVASTATIN 40 MG TAB PO SCH (21:05)
[2017-03-31] MEDS: MONTELUKAST 10 MG TAB PO SCH (21:05)
[2017-03-31 21:44] LABS: Glucose,Whole Blood 145 mg/dL (75-99)
[2017-04-01] MEDS: NYSTATIN 100,000 UNIT/ML SUSP 500,000 UNIT/5 ML CUP PO SCH ×5 (00:36→21:53)
[2017-04-01] MEDS: HYDROmorphone 1 MG/ML 1 ML SYRINGE IVP PRN ×6 (00:45→22:45)
[2017-04-01] MEDS: HYDROcodone/APAP 10-325MG 1 EACH TAB PO PRN ×3 (04:18→19:34)
--- NOTE | 2017-04-01 06:17 | PN ---
DATE OF SERVICE: 03/30/2017 Ms. Mariah Loya is a 56-year-old female, seen, evaluated and examined. Clinically, patient is doing well. Shortness of breath and cough has improved. Patient is on IV steroids, gradually being tapered down. Her hemodynamic status is stable. She still has shortness of breath on activity and exertion though. Her last set of vitals include blood pressure is 116/75, respiratory rate 20, pulse 104, temperature 98, saturation of 97%. HEENT EXAMINATION: Otherwise unremarkable. NECK: Supple. Neck veins are prominent with JVD. No bruits present. LUNGS: Bilateral coarse breath sounds with fine expiratory rhonchi and force expiration. HEART: Irregularly, irregular. Loud 2/6 early systolic murmur is present. Abdomen is soft. EXTREMITIES: Chronic edema with chronic skin changes. Medications reviewed. Laboratory data reviewed as well. The patient is currently on unit dose DuoNeb 4 times a day; also on Xanax, Lipitor, Pulmicort, Rocephin, Colace, Lasix, Lovenox, hydralazine, Dilaudid, Singulair, Morphine, Nitrostat, Prednisone is 40 mg daily. Also on trazodone. Laboratory data reviewed. The glucose is 178. IMPRESSION: 1. Acute chronic obstructive pulmonary disease exacerbation. 2. Acute on chronic hypoxic respiratory failure. 3. Severe degree of mitral stenosis and related to rheumatic heart disease. 4. Valvular heart disease. 5. Cardiomyopathy with chronic systolic heart failure. 6. Methicillin-resistant Staphylococcus aureus. 7. Purulent tracheobronchitis. Patient will be switched to oral prednisone. Continue antibiotics, breathing treatment. Continue with steroids. Will follow clinical course closely.
[2017-04-01 07:19] LABS: Glucose,Whole Blood 96 mg/dL (75-99)
[2017-04-01] MEDS: FUROSEMIDE 40 MG TAB PO SCH ×2 (08:50→18:15)
[2017-04-01] MEDS: hydrALAZINE HCL 25 MG TAB PO SCH ×2 (08:50→21:02)
[2017-04-01] MEDS: ENOXAPARIN 40 MG/0.4 ML SYRINGE SQ SCH ×2 (08:51→21:02)
[2017-04-01] MEDS: DOCUSATE 100 MG CAP PO SCH ×2 (08:51→21:02)
[2017-04-01] MEDS: INSULIN LISPRO (humaLOG) 300 UNIT/3 ML VIAL SQ SCH ×4 (08:52→21:02)
[2017-04-01] MEDS: IPRATROPIUM-ALBUTEROL 3 ML NEB INHALATION SCH ×4 (08:54→20:13)
[2017-04-01] MEDS: BUDESONIDE 0.5 MG/2 ML NEBU INHALATION SCH ×2 (08:54→20:13)
[2017-04-01] MEDS ORDERED: predniSONE 10 MG TAB PO SCH (09:00)
--- NOTE | 2017-04-01 10:56 | DS ---
DATE OF ADMISSION: 03/21/2017 DATE OF DISCHARGE: 04/01/2017 DISCHARGE DIAGNOSES: 1. Acute on chronic congestive heart failure. 2. Severe mitral stenosis with chronic atrial fibrillation. 3. Combined systolic and diastolic congestive heart failure. 4. Chronic obstructive pulmonary disease with acute exacerbation. 5. Basilar pneumonia with right pleural effusion. 6. Diabetes mellitus. 7. Anemia, possibly due to chronic blood loss. 8. General weakness and debilitation. This is a 56-year-old white female who is known to have multiple chronic medical problems and she was noted to have severe mitral stenosis with chronic atrial fibrillation and chronic congestive heart failure. She also has COPD with recurrent episodes of acute exacerbation and she is known to have diabetes mellitus and patient was brought to the emergency room because of progressive deterioration of her breathing and she became extremely short of breath and in the emergency room she was evaluated extensively and the patient had a CT angio to rule out pulmonary embolism and she was found to have acute on chronic congestive heart failure and acute exacerbation of COPD with possible pneumonia and patient was admitted to the hospital for further evaluation and treatment. For details of the physical examination at the time of admission, please refer to the history and physical. HOSPITAL COURSE: Patient was given nasal oxygen and her heart was monitored with telemetry and she was seen by [facility] in consultation. She was treated aggressively with diuretics and placed back on her previous medications and also she was seen by Dr. Hinds in consultation with regards to her COPD and pneumonia and extreme difficulty in breathing. Patient was given updraft treatment. She was also started on IV antibiotics and IV Solu-Medrol. Patient's breathing status gradually improved but she continued to be extremely weak and not even able to move around without help. The ( ) started making discharge arrangements. Patient was found to be not able to go home because she was extremely weak and not even able to move around without any help and she was also seen by Dr. Roque in consultation for further inpatient rehab and finally patient agreed to go to [facility] unit and arrangements were made for that and she is going to be transferred to [facility] unit on 04/01/2017. She will continue the following medications: 1. She will continue with DuoNeb nebulizer treatment q.i.d. and p.r.n. 2. Xanax 0.25 mg p.o. b.i.d. p.r.n. 3. [place] 10/325 one tablet q.6 hours p.r.n. pain. 4. Lipitor 40 mg p.o. daily. 5. Cepacol lozenges p.r.n. 6. Pulmicort inhalation b.i.d. 7. She will discontinue Rocephin. 8. She will be placed in Zithromax 500 mg p.o. daily for 6 days. 9. Singular 10 mg daily at bedtime. 10. Morphine IV will be discontinued. 11. Nitroglycerine 0.4 mg sublingual p.r.n. for chest pain. 12. Zofran 4 mg p.o. q.6 hours for nausea. 13. Prednisone 40 mg p.o. daily for 4 days and then reduce to 20 mg p.o. daily. 14. Trazodone 50 mg p.o. daily at bedtime. 15. Ferrous sulfate 325 mg daily. 16. Lasix 40 mg p.o. b.i.d. 17. Potassium chloride 10 ( ) p.o. daily. 18. Coumadin 2 mg p.o. daily. PT and INR to be checked Mondays and . CBC and CMP in 5 days. She will be continued with physical therapy and occupational therapy. She will be followed by [facility].
--- NOTE | 2017-04-01 11:07 | DS ---
DATE OF ADMISSION: 03/21/2017 DATE OF DISCHARGE: 04/01/2017 ADDENDUM: This is a 56-year-old white female who was in the hospital for treatment of COPD with acute exacerbation and for pneumonia and also acute on chronic congestive heart failure. The patient is ready for transfer to [facility] rehab unit. The patient was seen by Dr. Castellon in consultation for the pneumonia and when discharged, the patient will discontinue Rocephin, but continue with cefuroxime 500 mg p.o. q.12 hours for 7 days. She will discontinue Rocephin IV and also the Zithromax. She will continue all the other medication as dictated in the transfer summary.
[2017-04-01 11:32] LABS: Glucose,Whole Blood 151 mg/dL (75-99)
[2017-04-01 12:40] LABS: Alternaria alternata IgE <0.35 kU/L (<0.35); Asperg. fumagatus IgE <0.35 kU/L (<0.35); Asperg. fumagatus IgE Class CLASS 0; Birch(Com.Silvr) IgE Class CLASS 0; Cat Epith & Dander IgE <0.35 kU/L (<0.35); Cat Epith & Dander IgE Class CLASS 0; Clad herbarum IgE <0.35 kU/L (<0.35); Clad herbarum IgE Class CLASS 0; Common Ragweed IgE Class CLASS 0; Dermato. Pteronyssinus Class CLASS 0; Dermato. Pteronyssinus IgE <0.35 kU/L (<0.35); Dermato. farinae IgE <0.35 kU/L (<0.35); Dermato. farinae IgE Class CLASS 0; Maple (Box Elder) IgE <0.35 kU/L (<0.35); Maple (Box Elder) IgE Class CLASS 0; Mountain Cedar IgE <0.35 kU/L (<0.35); Mountain Cedar IgE Class CLASS 0; Mouse Urine IgE Class CLASS 0; Mouse Urine Proteins,IgE <0.35 kU/L (<0.35); Mulberry IgE Class CLASS 0; Nettle IgE <0.35 kU/L (<0.35); Nettle IgE Class CLASS 0; Oak IgE <0.35 kU/L (<0.35); Penicillium notatum IgE Class CLASS 0; Rough Marshelder IgE <0.35 kU/L (<0.35); Rough Marshelder IgE Class CLASS 0; Timothy Grass IgE <0.35 kU/L (<0.35); Timothy Grass IgE Class CLASS 0; White Ash IgE Class CLASS 0
--- NOTE | 2017-04-01 12:59 | P.PN ---
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 She's not been feeling well for several days. Nose that she's having ongoing difficulties with her pulmonary status. This thought to have another episode of pneumonia. She has significant weakness sputum production and fever. Fortunately not requiring ICU stay at this time. She feels slightly better since coming to hospital. But as for oxygens even working. We prove that she is receiving oxygen at 4 L but she is still somewhat short of breath. She feels quite poorly overall. She has mild cough with scant sputum production. At admission she was found evidence of atrial fibrillation was rate controlled she has not responded well to amiodarone in the past. Is noted she complains a beget weakness but denies chills or rigors. Patient is now had diuresis. was feeling somewhat better. Still very weak. short of breath today. To ECF today. Objective - Vital Signs Vital signs: Vital Signs Temp 97.6 F 04/01/17 07:00 Pulse 96 04/01/17 12:47 Resp 20 04/01/17 08:00 BP 123/63 04/01/17 07:00 Pulse Ox 98 04/01/17 07:00 Intake & Output 03/31/17 04/01/17 04/01/17 18:59 06:59 18:59 Intake Total 260 Output Total 1500 Balance -1240 Weight 47 kg 47 kg Intake: IV 20 0.9 20 Oral 240 Output: Urine 1500 Other: Voiding Method Indwelling Catheter Indwelling Catheter Indwelling Catheter # Voids 2 # Bowel Movements 1 - Exam 56-year-old woman who looks much older than her stated age. She is chronically ill. HEENT: Anicteric conjunctiva are pink and moist nasal mucosa grossly intact without significant lesions, there is no thrush. Poor dentition Neck: The neck is supple without significant lymphadenopathy or thyromegaly. Lungs: Symmetrical air entry with wheezes scattered throughout the lung iqbal. Basilar crackles are heard. No dullness or egophony Heart: Irregularly irregular no S3 loud S4 There is no significant murmur click or rub, PMI was nondisplaced. Abdomen: Positive bowel sounds soft and nontender without palpable masses or organomegaly. There was no guarding or rebound. Extremities: The extremities have just trace edema. She has no tenderness over the joints. Skin the patient has changes of diabetes her lower extremities however she has a difficulty with chronically picking at her skin and has innumerable lesions that healed over arms and legs at this time. None of them are open are grossly draining at this time Please see the nursing photography for the coccyx ulceration 1 x 1 x 0.3 cm. Which has progressed. The patient sits up in bed at all times. Neuro: She is awake alert oriented to person place and time and does not exhibit any acute gross focal sensory motor deficits - Labs CBC & Chem 7: 03/29/17 06:20 03/29/17 06:20 Labs: Abnormal Lab Results - Last 24 Hours (Table) 03/27/17 03/31/17 03/31/17 Range/Units 05:48 17:38 21:33 POC Glucose (mg/dL) 162 H 145 H (75-99) mg/dL IgE 150.0 H (<114.0) IU/mL 04/01/17 Range/Units 11:25 POC Glucose (mg/dL) 151 H (75-99) mg/dL IgE (<114.0) IU/mL Laboratory Results WBC 20.8 k/uL (3.8-10.6) H 03/29/17 06:20 RBC 4.30 m/uL (3.80-5.40) 03/29/17 06:20 Hgb 9.2 gm/dL (11.4-16.0) L 03/29/17 06:20 Hct 30.7 % (34.0-46.0) L 03/29/17 06:20 MCV 71.4 fL (80.0-100.0) L 03/29/17 06:20 MCH 21.5 pg (25.0-35.0) L 03/29/17 06:20 MCHC 30.1 g/dL (31.0-37.0) L 03/29/17 06:20 RDW 17.1 % (11.5-15.5) H 03/29/17 06:20 Plt Count 266 k/uL (150-450) 03/29/17 06:20 Neutrophils % 89 % 03/29/17 06:20 Lymphocytes % 6 % 03/29/17 06:20 Monocytes % 4 % 03/29/17 06:20 Eosinophils % 0 % 03/29/17 06:20 Basophils % 0 % 03/29/17 06:20 Neutrophils # 18.5 k/uL (1.3-7.7) H 03/29/17 06:20 Lymphocytes # 1.3 k/uL (1.0-4.8) 03/29/17 06:20 Monocytes # 0.8 k/uL (0-1.0) 03/29/17 06:20 Eosinophils # 0.0 k/uL (0-0.7) 03/29/17 06:20 Basophils # 0.0 k/uL (0-0.2) 03/29/17 06:20 Hypochromasia Marked 03/29/17 06:20 Poikilocytosis Moderate 03/29/17 06:20 Anisocytosis Slight 03/29/17 06:20 Microcytosis Moderate 03/29/17 06:20 PT 10.9 sec (9.0-12.0) 03/29/17 06:20 INR 1.1 (<1.1) 03/29/17 06:20 APTT 31.5 sec (22.0-30.0) H 03/21/17 09:02 D-Dimer 1.25 mg/L FEU (<0.60) H 03/21/17 01:21 Sodium 131 mmol/L (137-145) L 03/29/17 06:20 Potassium 5.5 mmol/L (3.5-5.1) H 03/29/17 06:20 Chloride 88 mmol/L (98-107) L 03/29/17 06:20 Carbon Dioxide 37 mmol/L (22-30) H 03/29/17 06:20 Anion Gap 6 mmol/L 03/29/17 06:20 BUN 49 mg/dL (7-17) H 03/29/17 06:20 Creatinine 0.70 mg/dL (0.52-1.04) 03/29/17 06:20 Est GFR (MDRD) Af Amer >60 (>60 ml/min/1.73 sqM) 03/29/17 06:20 Est GFR (MDRD) Non-Af >60 (>60 ml/min/1.73 sqM) 03/29/17 06:20 Glucose 178 mg/dL (74-99) H 03/29/17 06:20 POC Glucose (mg/dL) 151 mg/dL (75-99) H 04/01/17 11:25 POC Glu Sales Representative Cash Registers ID Renetta Hartmann 04/01/17 11:[address] Glu mg/dL 85 mg/dL 03/21/17 09:02 Hemoglobin A1c 4.6 % (4.2-6.1) 03/21/17 09:02 Calcium 9.0 mg/dL (8.4-10.2) 03/29/17 06:20 Iron <10 ug/dL (37-170) L 03/21/17 09:02 TIBC 210 ug/dL (265-497) L 03/21/17 09:02 % Saturation <4.8 % (20-50) L 03/21/17 09:02 Ferritin 767 ng/mL (11-264) H 03/21/17 09:02 Total Bilirubin 1.1 mg/dL (0.2-1.3) 03/21/17 01:21 AST 39 U/L (14-36) H 03/21/17 01:21 ALT 33 U/L (9-52) 03/21/17 01:21 Alkaline Phosphatase 126 U/L (38-126) 03/21/17 01:21 Total Creatine Kinase 53 U/L (30-135) 03/21/17 09:02 CK-MB (CK-2) 1.7 ng/mL (0.0-2.4) 03/30/17 13:01 CK-MB (CK-2) Rel Index 4.2 03/21/17 09:02 Troponin I 0.040 ng/mL (0.000-0.034) H* 03/30/17 13:01 NT-Pro-B Natriuret Pep 4680 pg/mL 03/27/17 05:48 Total Protein 6.1 g/dL (6.3-8.2) L 03/21/17 01:21 Albumin 3.1 g/dL (3.5-5.0) L 03/21/17 01:21 Triglycerides 79 mg/dL (<150) 03/22/17 06:05 Cholesterol 107 mg/dL (<200) 03/22/17 06:05 LDL Cholesterol, Calc 44 mg/dL (0-99) 03/22/17 06:05 HDL Cholesterol 47 mg/dL (40-60) 03/22/17 06:05 TSH 4.470 mIU/L (0.465-4.680) 03/21/17 09:02 Alternar. alternata IgE <0.35 kU/L (<0.35) 03/27/17 05:48 A. alternata Note CLASS 0 03/27/17 05:48 A.fumigatus Allerg IgE <0.35 kU/L (<0.35) 03/27/17 05:48 A. fumigatus Note CLASS 0 03/27/17 05:48 C. herbarum Allergn IgE <0.35 kU/L (<0.35) 03/27/17 05:48 C. herbarum Allerg Note CLASS 0 03/27/17 05:48 D. farinae Class CLASS 0 03/27/17 05:48 D. farinae Allrgen IgE <0.35 kU/L (<0.35) 03/27/17 05:48 D. pteronyssinus Class CLASS 0 03/27/17 05:48 D. pteronyssinus IgE <0.35 kU/L (<0.35) 03/27/17 05:48 P. notatum Allerg IgE <0.35 kU/L (<0.35) 03/27/17 05:48 Penicill notatum Note CLASS 0 03/27/17 05:48 [place] IgE Ab <0.35 kU/L (<0.35) 03/27/17 05:48 [place] Note CLASS 0 03/27/17 05:48 [place] IgE Ab <0.35 kU/L (<0.35) 03/27/17 05:48 [place] Tree Note CLASS 0 03/27/17 05:48 Elm Tree Allergen IgE <0.35 kU/L (<0.35) 03/27/17 05:48 [place]m Tree Note CLASS 0 03/27/17 05:48 Maple ([place]) IgE <0.35 kU/L (<0.35) 03/27/17 05:48 Maple ([place]) Note CLASS 0 03/27/17 05:48 [place] Tree IgE Ab <0.35 kU/L (<0.35) 03/27/17 05:48 [place] Tree Note CLASS 0 03/27/17 05:48 [place] Tree IgE Ab <0.35 kU/L (<0.35) 03/27/17 05:48 [place] Tree Note CLASS 0 03/27/17 05:48 [place] Tree Allerg IgE Ab <0.35 kU/L (<0.35) 03/27/17 05:48 [place] Allergen Note CLASS 0 03/27/17 05:48 Rgh [place] Elder Note CLASS 0 03/27/17 05:48 [place] Tree IgE Ab <0.35 kU/L (<0.35) 03/27/17 05:48 [place] Tree Note CLASS 0 03/27/17 05:48 [place] Grass IgE Ab <0.35 kU/L (<0.35) 03/27/17 05:48 [place] Grass Note CLASS 0 03/27/17 05:48 Sán[place] Grass IgE Ab <0.35 kU/L (<0.35) 03/27/17 05:48 [place]án[place] Note CLASS 0 03/27/17 05:48 Common Ragweed IgE Ab <0.35 kU/L (<0.35) 03/27/17 05:48 Common Ragweed Note CLASS 0 03/27/17 05:48 [place] Elder (Rough) <0.35 kU/L (<0.35) 03/27/17 05:48 [place]ettle Allerg IgE Ab <0.35 kU/L (<0.35) 03/27/17 05:48 [place] Allergen Note CLASS 0 03/27/17 05:48 Andorran Thistle IgE Ab <0.35 kU/L (<0.35) 03/27/17 05:48 [place] Thistle Note CLASS 0 03/27/17 05:48 Cat Dander/Epith Allerg <0.35 kU/L (<0.35) 03/27/17 05:48 Cat Dander Note CLASS 0 03/27/17 05:48 Dog Dander Allerg IgG <0.35 kU/L (<0.35) 03/27/17 05:48 Dog Dander Note CLASS 0 03/27/17 05:48 Mouse Urine IgE Ab <0.35 kU/L (<0.35) 03/27/17 05:48 Mouse Urine IgE Ext Cl CLASS 0 03/27/17 05:48 Cockroach Allergen IgE <0.35 kU/L (<0.35) 03/27/17 05:48 Cockroach Allerg Note CLASS 0 03/27/17 05:48 Digoxin 2.0 ng/mL 03/21/17 09:02 IgE 150.0 IU/mL (<114.0) H 03/27/17 05:48 Blood Type O Positive 03/27/17 11:48 Blood Type Recheck No 03/27/17 11:48 Antibody Screen NEGATIVE 03/27/17 11:48 Crossmatch See Detail 03/27/17 11:48 Spec Expiration Date 03/30/2017234703/27/17 11:48 Assessment and Plan (1) COPD (chronic obstructive pulmonary disease) Narrative/Plan: 56-year-old female who is advanced COPD is oxygen and inhaled steroid dependent carefully continues to smoke. Presents to Hospital feeling very weak and ill. His been seen by cardiology. His been instructed to take no further amiodarone to ensure there is no toxicity to her pulmonary system from this medication. Rate controlled with digitalis and calcium channel blockers is being utilized. She still feels quite short of breath. Receiving multiple respiratory treatments. As well as oral steroid therapy. She may feel slowly better than admission. She has received some diuresis. At this time with exacerbation of her COPD and her history of MSSA, ceftriaxone will be given while cultures are in process. Her leukocytosis is multifactorial including her steroid therapy and acute exacerbation of her underlying lung disease. Smoking cessation is again discussed. With diuresis was feeling better. Has been waxing and waning, is candidate for palliative care. Following with cardiology. We'll not be planning on long-term IV antibiotic therapy. She ready for discharge home for completion course of therapy with cefuroxime 500 mg every 12 hours for 7 days will be given. The patient's pressure ulceration has progressed. He has 1 x 1 x 0.3 cm. Likely some bony exposure. She is always sitting up in her bed rate on that pressure point. She does not sit in different positioning. Wound care with medical honey is applied It appears to be going to extended care. Hopefully will allow some further improvement. Status: Acute (2) Leukocytosis Status: Acute
--- NOTE | 2017-04-01 16:28 | PN ---
Mariah Loya is seen, evaluated and examined on the 5th floor. Clinically patient is slightly better, but still feeling cough and congestion, gets short of breath on minimal activity and exertion. Steroids are gradually being tapered down. Swelling in the lower extremity has improved. Her last set of vitals include blood pressure is 123/60, respirations 20, pulse 84, temperature 97, saturation 98% on 3L oxygen. HEENT: Unremarkable. NECK: Supple. Elevated JVD up to angle of jaw. LUNGS: Good air entry bilaterally. HEART: Regular rate and rhythm. S1 and S2 audible, 2/6 to 3/6 early systolic murmur. ABDOMEN: Soft. No rebound or rigidity. EXTREMITIES: +1 peripheral pulses. NEUROLOGICAL EXAMINATION: Otherwise, awake and alert. EXTREMITIES: Chronic edema. Current medications reviewed and include: 1. [place]. 2. DuoNeb. 3. Albuterol. 4. Xanax. 5. Lipitor. 6. Pulmicort. 7. Rocephin. 8. Lovenox. 9. Lasix. 10. Hydralazine. 11. Dilaudid. 12. Prednisone 30 mg. IMPRESSION: 1. Respiratory failure associated with pneumonia and history of methicillin-susceptible Staphylococcus aureus in the past. The patient has been on antibiotics. Infectious Disease Service is following, adjusting the antibiotics. 2. Severe chronic obstructive pulmonary disease with acute exacerbation. 3. Mitral valve disease with mitral stenosis and rheumatic heart disease. PLAN AND RECOMMENDATION: As above. Continue supportive care. Will lower down the prednisone to 20 mg daily. Further recommendations pending. Plan of care as per clinical response of the patient.
[2017-04-01 17:46] LABS: Glucose,Whole Blood 218 mg/dL (75-99)
[2017-04-01 20:48] LABS: Glucose,Whole Blood 114 mg/dL (75-99)
[2017-04-01] MEDS: cefTRIAXone 2,000 MG in SODIUM CHLORIDE 0.9% 100 ML IVPB SCH (21:00)
[2017-04-01] MEDS: traZODone HCL 50 MG TAB PO SCH (21:02)
[2017-04-01] MEDS: ALPRAZolam 0.25 MG TAB PO PRN (21:02)
[2017-04-01] MEDS: MONTELUKAST 10 MG TAB PO SCH (21:02)
[2017-04-01] MEDS: ATORVASTATIN 40 MG TAB PO SCH (21:02)
[2017-04-02] MEDS: HYDROcodone/APAP 10-325MG 1 EACH TAB PO PRN ×3 (01:35→17:10)
[2017-04-02] MEDS: HYDROmorphone 1 MG/ML 1 ML SYRINGE IVP PRN ×5 (03:18→19:32)
[2017-04-02 08:00] LABS: Glucose,Whole Blood 98 mg/dL (75-99)
[2017-04-02] MEDS: INSULIN LISPRO (humaLOG) 300 UNIT/3 ML VIAL SQ SCH ×4 (08:00→21:04)
[2017-04-02] MEDS: BUDESONIDE 0.5 MG/2 ML NEBU INHALATION SCH ×2 (08:02→19:17)
[2017-04-02] MEDS: IPRATROPIUM-ALBUTEROL 3 ML NEB INHALATION SCH ×4 (08:03→19:17)
[2017-04-02] MEDS: NYSTATIN 100,000 UNIT/ML SUSP 500,000 UNIT/5 ML CUP PO SCH ×4 (08:49→21:02)
[2017-04-02] MEDS: DOCUSATE 100 MG CAP PO SCH ×2 (08:49→21:03)
[2017-04-02] MEDS: ENOXAPARIN 40 MG/0.4 ML SYRINGE SQ SCH ×2 (08:49→21:01)
[2017-04-02] MEDS: predniSONE 20 MG TAB PO SCH (08:50)
[2017-04-02] MEDS: hydrALAZINE HCL 25 MG TAB PO SCH ×2 (08:51→21:02)
[2017-04-02] MEDS: FUROSEMIDE 40 MG TAB PO SCH ×2 (08:51→15:33)
[2017-04-02 12:11] LABS: Glucose,Whole Blood 125 mg/dL (75-99)
--- NOTE | 2017-04-02 17:16 | PN ---
This patient is seen, evaluated, examined. She is a 56-year-old female with severe degree of mitral valve disease and mitral stenosis related to rheumatic heart disease, chronic atrial fibrillation. Patient is clinically doing well in terms of breathing. Cough, congestion and shortness breath have improved. Her steroids are gradually being tapered down. Her blood pressure is 90/60, respiratory rate 16, pulse 102, temperature 97. Saturating 100% on 3 L oxygen. HEENT EXAMINATION: Otherwise unremarkable. NECK: Supple. Neck veins are prominent up to the angle of jaw. No bruits present. HEART: Irregularly irregular. S1, S2 audible. Systolic murmur at the precordium is noted which is not much changed. LUNGS: Bilateral good air entry with fine expiratory rhonchi on forced expiration. A few crackles at bases. HEART: Regular rate, rhythm. S1, S2 audible. ABDOMEN: Soft. EXTREMITIES: Trace edema. NEUROLOGICAL EXAMINATION: Otherwise awake and alert. Last chest x-ray performed 03/27/17 reviewed; small bilateral pleural effusion, right basilar atelectasis and right-sided infiltrates are seen. IMPRESSION: 1. Pneumonia related to methicillin-susceptible Staphylococcus aureus. 2. Acute on chronic hypoxic respiratory failure related to chronic obstructive pulmonary disease and pneumonia. 3. Severe degree of mitral stenosis. 4. Rheumatic heart disease. 5. Chronic atrial fibrillation, well anticoagulated. PLAN AND RECOMMENDATIONS: As above. Continue supportive care. Change IV antibiotics to oral. Continue oral prednisone. Would recommend slowly tapering it down to bring it to baseline of 10 mg daily. Will follow.
[2017-04-02 17:45] LABS: Glucose,Whole Blood 225 mg/dL (75-99)
--- NOTE | 2017-04-02 18:21 | PN ---
DATE OF SERVICE: 04/02/2017 This is a 56-year-old white female who has multiple medical problems. She was admitted with acute on chronic CHF and acute exacerbation of COPD and basilar pneumonia. Patient was seen by [facility] in consultation with also by Dr. Segun Hinds in consultation and she was treated with IV diuretics and placed back on her previous home medications. Also she has received IV antibiotics, updraft treatments and IV Solu-Medrol. Her oral respiratory status improved, but she continued to be extremely weak and has been using nasal oxygen constantly. Social Service arranged transferring into [facility] rehab unit when discharged and currently patient is going to be discharged and she will be transferred when bed is available in [facility]. In the meantime, will continue current medications. Her vital signs are stable. She is extremely weak and using nasal oxygen constantly. Prognosis is guarded.
[2017-04-02 19:55] LABS: Glucose,Whole Blood 138 mg/dL (75-99)
[2017-04-02] MEDS: cefTRIAXone 2,000 MG in SODIUM CHLORIDE 0.9% 100 ML IVPB SCH (21:01)
[2017-04-02] MEDS: ATORVASTATIN 40 MG TAB PO SCH (21:03)
[2017-04-02] MEDS: traZODone HCL 50 MG TAB PO SCH (21:04)
[2017-04-02] MEDS: MONTELUKAST 10 MG TAB PO SCH (22:26)
[2017-04-03] MEDS: ALPRAZolam 0.25 MG TAB PO PRN ×3 (00:04→23:00)
[2017-04-03] MEDS: HYDROcodone/APAP 10-325MG 1 EACH TAB PO PRN ×4 (01:23→23:00)
[2017-04-03] MEDS: HYDROmorphone 1 MG/ML 1 ML SYRINGE IVP PRN ×3 (05:46→10:10)
[2017-04-03 07:12] LABS: Glucose,Whole Blood 92 mg/dL (75-99)
[2017-04-03] MEDS: INSULIN LISPRO (humaLOG) 300 UNIT/3 ML VIAL SQ SCH ×4 (07:37→20:17)
[2017-04-03] MEDS: IPRATROPIUM-ALBUTEROL 3 ML NEB INHALATION SCH ×4 (07:42→21:20)
[2017-04-03] MEDS: BUDESONIDE 0.5 MG/2 ML NEBU INHALATION SCH ×2 (07:42→21:20)
[2017-04-03] MEDS: predniSONE 20 MG TAB PO SCH (08:26)
[2017-04-03] MEDS: NYSTATIN 100,000 UNIT/ML SUSP 500,000 UNIT/5 ML CUP PO SCH ×4 (08:26→23:00)
[2017-04-03] MEDS: hydrALAZINE HCL 25 MG TAB PO SCH ×2 (08:27→20:19)
[2017-04-03] MEDS: ENOXAPARIN 40 MG/0.4 ML SYRINGE SQ SCH ×2 (08:27→20:17)
[2017-04-03] MEDS: FUROSEMIDE 40 MG TAB PO SCH ×2 (08:27→16:50)
[2017-04-03] MEDS: DOCUSATE 100 MG CAP PO SCH ×2 (08:27→20:19)
[2017-04-03 12:41] LABS: Alternaria tenius IgG 2.5 mcg/mL (< 13.6); Cladosporium herbarium IgG 13.8 mcg/mL (< 14.7); Phoma ssp. IgG < 2.0 mcg/mL (< 6.6); Saccaharomospora viridis Not detected (Not detected); Saccaharopoly. rectivirgula Not detected (Not detected)
[2017-04-03 12:49] LABS: Glucose,Whole Blood 270 mg/dL (75-99)
--- NOTE | 2017-04-03 15:16 | PN ---
The patient is a 56-year-old female, seen, evaluated, examined. The patient has been using Dilaudid every 4 hours. She is also on [place]. Patient has been counseled about tapering of the narcotic medicines. Clinically she is doing slightly better, breathing more comfortably. Denies any chest pain. Hemodynamic status is stable. Her last set of vitals include blood pressure of 100/60, respiratory rate 20, pulse 83, temperature is 97, saturation 100% on 2 liters oxygen. HEENT EXAMINATION: Otherwise unremarkable. NECK: Supple neck veins are prominent. No bruits present. LUNGS: Good air entry bilaterally with very fine rhonchi on forced expiration. HEART: Irregularly irregular. S1, S2 audible, 2/6 early systolic murmur along over the precordium is present. ABDOMEN: Soft. No rebound or rigidity. EXTREMITIES: +1 edema. NEUROLOGICAL EXAMINATION: Awake and alert. No focal neurological deficit. Laboratory data reviewed: Glucose 92. Current medications reviewed as well. IMPRESSION: 1. Methicillin susceptible Staphylococcus aureus pneumonia. The patient has been on Rocephin, tolerating well clinically and radiographically improving. Infectious disease service is following as well. I agree with changing into simple antibiotics in outpatient setting. 2. Severe chronic obstructive pulmonary disease and chronic hypoxic respiratory failure, prednisone and oxygen dependent. We will lower down the prednisone to 10 mg daily as a maintenance dose from 20 mg. Continue other supportive care. 3. Hypertension, hypertensive cardiovascular disease. 4. Chronic atrial fibrillation, well anticoagulated with Coumadin. However, patient currently on Lovenox. Will defer to cardiovascular service and primary service to change back to Coumadin. 5. Rheumatic heart disease and severe mitral stenosis, conservative management at this point in time. The patient is not a candidate for aggressive intervention like mitral valve replacement; however, Cardiovascular service also following in that regard. Will follow.
[2017-04-03 16:58] LABS: Glucose,Whole Blood 180 mg/dL (75-99)
[2017-04-03] MEDS: ATORVASTATIN 40 MG TAB PO SCH (20:17)
[2017-04-03] MEDS: MONTELUKAST 10 MG TAB PO SCH (20:17)
[2017-04-03] MEDS: cefTRIAXone 2,000 MG in SODIUM CHLORIDE 0.9% 100 ML IVPB SCH (20:19)
[2017-04-03 20:20] LABS: Glucose,Whole Blood 150 mg/dL (75-99)
[2017-04-03] MEDS: traZODone HCL 50 MG TAB PO SCH (22:04)
[2017-04-04] MEDS: HYDROcodone/APAP 10-325MG 1 EACH TAB PO PRN ×3 (07:40→18:49)
[2017-04-04] MEDS: FUROSEMIDE 40 MG TAB PO SCH ×2 (07:44→17:11)
[2017-04-04] MEDS: hydrALAZINE HCL 25 MG TAB PO SCH ×2 (07:44→21:03)
[2017-04-04] MEDS: ENOXAPARIN 40 MG/0.4 ML SYRINGE SQ SCH ×2 (07:44→21:03)
[2017-04-04] MEDS: NYSTATIN 100,000 UNIT/ML SUSP 500,000 UNIT/5 ML CUP PO SCH ×4 (07:44→21:03)
[2017-04-04] MEDS: DOCUSATE 100 MG CAP PO SCH ×2 (07:45→21:05)
[2017-04-04] MEDS: INSULIN LISPRO (humaLOG) 300 UNIT/3 ML VIAL SQ SCH ×4 (07:50→21:04)
[2017-04-04 07:51] LABS: Glucose,Whole Blood 96 mg/dL (75-99)
[2017-04-04 08:21] VITALS: RESP 16
[2017-04-04] MEDS: predniSONE 10 MG TAB PO SCH (08:27)
[2017-04-04] MEDS: BUDESONIDE 0.5 MG/2 ML NEBU INHALATION SCH ×2 (09:54→19:20)
[2017-04-04] MEDS: IPRATROPIUM-ALBUTEROL 3 ML NEB INHALATION SCH ×4 (09:54→19:21)
[2017-04-04] MEDS: ALPRAZolam 0.25 MG TAB PO PRN ×2 (10:44→21:05)
--- NOTE | 2017-04-04 11:00 | P.PN ---
Subjective This is a 56-year-old female patient being seen, evaluated and examined today on the fifth floor. Patient does have a severe degree of mitral valve disease and mitral stenosis related to rheumatic heart disease and chronic atrial fibrillation. Patient is clinically doing well in terms of breathing. Her cough congestion shortness of breath has improved. Steroids have been tapered down. The patient is currently using 3 L of supplemental oxygen which is her baseline uses at home. The patient will be discharged in the near future currently she is waiting for a bed at [facility]. Objective - Vital Signs Vital signs: Vital Signs Temp 98.2 F 04/04/17 07:00 Pulse 88 04/04/17 10:15 Resp 16 04/04/17 07:00 BP 99/44 04/04/17 07:00 Pulse Ox 100 04/04/17 09:54 Intake & Output 04/03/17 04/04/17 04/04/17 18:59 06:59 18:59 Intake Total 400 Output Total 900 500 Balance -500 -500 Weight 46 kg Intake: Oral 400 Output: Urine 900 500 Uretheral ([place]) 900 Other: Voiding Method Indwelling Catheter Indwelling Catheter Indwelling Catheter # Voids 1 # Bowel Movements 1 - Exam GENERAL EXAM: Alert, active, comfortable in no apparent distress. HEAD: Normocephalic. EYES: Normal reaction of pupils, equal size. NOSE: Clear with pink turbinates. THROAT: No erythema or exudates. NECK: No masses, no JVD. CHEST: No chest wall deformity. LUNGS: Continues to have bilateral expiratory rhonchi on forced expiration and few crackles at the bases. CVS: S1 and S2 normal with no audible mumurs, irregular rhythm. ABDOMEN: No hepatosplenomegaly, normal bowel sounds, no guarding or rigidity. EXTREMITIES: Trace edema noted, pedal pulses palpable. SKIN: No rashes CENTRAL NERVOUS SYSTEM: No focal deficits, tone is normal in all 4 extremities. - Labs CBC & Chem 7: 03/29/17 06:20 03/29/17 06:20 Labs: Abnormal Lab Results - Last 24 Hours (Table) 04/03/17 04/03/17 04/03/17 Range/Units 12:47 16:56 20:10 POC Glucose (mg/dL) 270 H 180 H 150 H (75-99) mg/dL Assessment and Plan Plan: Impression Pneumonia related to methicillin susceptible Staphylococcus aureus Acute on chronic hypoxic respiratory failure Acute on chronic obstructive pulmonary disease and pneumonia Severe degree of mitral stenosis rheumatic heart disease chronic atrial fibrillation Plan Patient could be discharged to [facility] rehab facility in the near future. Medications have been reviewed and will be continued as ordered. Continue with pulmonary hygiene, coughing and deep breathing exercises, and supportive care. Supplemental oxygen to maintain oxygen saturations of 90% or better. Continue nebulizer treatments. GI and DVT prophylaxis. We will continue to monitor labs/ results and adjust treatment as necessary. Further recommendations pending. I performed an examination of the patient and discussed their management with the nurse practitioner. I have reviewed the nurse practitioner's note and agree with the documented findings and plan of care.
--- NOTE | 2017-04-04 11:29 | CDI ---
In responding to this query, please exercise your independent professional judgment. The [facility] Coding Staff and Clinical Documentation Specialists appreciate your assistance in clarifying documentation, maintaining compliance with coding guidelines, accurately documenting patients condition and capturing severity of illness. The fact that a question is asked does not imply that any particular answer is desired or expected. Communication forms are a method of clarifying documentation and are not made part of the Legal Health Record. Thank you in advance for your clarification. Last Revision, August 2015 Yolanda Diallo [address] [facility] [place] [address] Documentation Clarification Form Date: 04/04/2017 11:00:00 AM From: Fransisca Wheat Admit Date: 03/21/2017 3:41:00 AM Patient Name: Mariah Loya Visit Number: [id number] Discharge Date: Dr. Raimundo Castellon The following has been documented in your progress notes on 04/01/17: The patient' s pressure ulceration has progressed. She has 1x1x 0.3 cm. Likely some bony exposure. History/Risk Factors: COPD, Clinical Indicators: wounds assessment: 03/20/17: coccyx pressure injury stage II. Wound margins macerated. Treatment: Dressing changes (per orders) Definition of Present on Admission (POA): A diagnosis present at the time the order for admission to inpatient status was written. For each diagnosis, documentation must be clear to determine if the condition was present at the time of the patients inpatient admission or developed during the hospital stay. Please clarify in your progress notes as to whether Pressure ulcer was: Y = Yes, the condition was present at the time of the order for inpatient admission. N = No, the condition was not present at the time of the order for inpatient admission W = Clinically undetermined if the condition was present at the time of the order for Inpatient admission. Please continue to document in your progress notes in order to capture severity of illness and risk of mortality. Include clinical findings that support your diagnosis. FYI: Press F11 to launch patient chart. IS[facility]
[2017-04-04 11:46] LABS: Glucose,Whole Blood 143 mg/dL (75-99)
--- NOTE | 2017-04-04 16:07 | P.PN ---
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 She's not been feeling well for several days. Nose that she's having ongoing difficulties with her pulmonary status. This thought to have another episode of pneumonia. She has significant weakness sputum production and fever. Fortunately not requiring ICU stay at this time. She feels slightly better since coming to hospital. But as for oxygens even working. We prove that she is receiving oxygen at 4 L but she is still somewhat short of breath. She feels quite poorly overall. She has mild cough with scant sputum production. At admission she was found evidence of atrial fibrillation was rate controlled she has not responded well to amiodarone in the past. Is noted she complains a beget weakness but denies chills or rigors. Patient is now had diuresis. was feeling somewhat better. Still very weak. short of breath today with the temp and humidity, bedside fan requested. To [facility] today. complete 7 days cefuroxime at [facility] Objective - Vital Signs Vital signs: Vital Signs Temp 97.2 F L 04/04/17 15:00 Pulse 104 H 04/04/17 15:55 Resp 16 04/04/17 15:00 BP 118/80 04/04/17 15:00 Pulse Ox 100 04/04/17 15:00 Intake & Output 04/03/17 04/04/17 04/04/17 18:59 06:59 18:59 Intake Total 400 1680 Output Total 900 1000 Balance -500 680 Weight 46 kg Intake: IV 180 0.9 180 Intake, IV Titration 100 Amount cefTRIAXone 2,000 mg In 100 Sodium Chloride 0.9% 100 ml @ 100 mls/hr IVPB [facility] Rx#:[id number] Oral 400 1400 Output: Urine 900 1000 Uretheral ([place]) 900 500 Other: Voiding Method Indwelling Catheter Indwelling Catheter Indwelling Catheter # Voids 1 # Bowel Movements 1 1 - Labs CBC & Chem 7: 03/29/17 06:20 03/29/17 06:20 Labs: Abnormal Lab Results - Last 24 Hours (Table) 04/03/17 04/03/17 04/04/17 Range/Units 16:56 20:10 11:44 POC Glucose (mg/dL) 180 H 150 H 143 H (75-99) mg/dL Assessment and Plan (1) COPD (chronic obstructive pulmonary disease) Status: Acute (2) Leukocytosis Status: Acute
--- NOTE | 2017-04-04 16:53 | PN ---
DATE OF SERVICE: 04/03/2017 This is a 56-year-old white female who was admitted with acute on chronic congestive heart failure and COPD with acute exacerbation. Also she was known to have diabetes mellitus with severe mitral stenosis. Patient was seen by [facility] in consultation and also by Dr. Hinds in consultation for her pulmonary problems. Patient was placed back on her previous medications and she was treated with IV Lasix and updraft treatments, IV Solu-Medrol, IV antibiotics. She is also known to have chronic atrial fibrillation with controlled ventricular rate. Patient's ( ) symptoms improved, but she remains extremely weak and she needs help to get out of the bed and also to walk. Patient was recommended to go to [facility] rehab unit when discharged; accordingly, the arrangements have been made to transfer her to [facility] when a bed is available. Patient possibly will be able to go to [facility] tomorrow (that is 04/04/2017). She will continue the medications and the care as recommended in the transfer summary.
[2017-04-04 17:08] LABS: Glucose,Whole Blood 266 mg/dL (75-99)
[2017-04-04 20:31] LABS: Glucose,Whole Blood 166 mg/dL (75-99)
[2017-04-04] MEDS: cefTRIAXone 2,000 MG in SODIUM CHLORIDE 0.9% 100 ML IVPB SCH (21:02)
[2017-04-04] MEDS: traZODone HCL 50 MG TAB PO SCH (21:03)
[2017-04-04] MEDS: ATORVASTATIN 40 MG TAB PO SCH (21:03)
[2017-04-04] MEDS: MONTELUKAST 10 MG TAB PO SCH (21:03)
[2017-04-05] MEDS: HYDROcodone/APAP 10-325MG 1 EACH TAB PO PRN ×2 (00:33→09:14)
[2017-04-05] MEDS: HYDROmorphone 1 MG/ML 1 ML SYRINGE IVP PRN ×3 (01:34→14:22)
[2017-04-05 07:09] LABS: Glucose,Whole Blood 101 mg/dL (75-99)
[2017-04-05] MEDS: IPRATROPIUM-ALBUTEROL 3 ML NEB INHALATION SCH ×3 (07:18→15:22)
[2017-04-05] MEDS: BUDESONIDE 0.5 MG/2 ML NEBU INHALATION SCH (07:18)
[2017-04-05] MEDS: INSULIN LISPRO (humaLOG) 300 UNIT/3 ML VIAL SQ SCH ×2 (07:52→12:58)
[2017-04-05] MEDS: NYSTATIN 100,000 UNIT/ML SUSP 500,000 UNIT/5 ML CUP PO SCH ×2 (08:21→12:59)
[2017-04-05] MEDS: ENOXAPARIN 40 MG/0.4 ML SYRINGE SQ SCH (08:21)
[2017-04-05] MEDS: DOCUSATE 100 MG CAP PO SCH (08:21)
[2017-04-05] MEDS: FUROSEMIDE 40 MG TAB PO SCH (08:21)
[2017-04-05] MEDS: predniSONE 10 MG TAB PO SCH (08:21)
[2017-04-05] MEDS: hydrALAZINE HCL 25 MG TAB PO SCH (09:25)
[2017-04-05 11:12] VITALS: BMI 15.8
[2017-04-05 11:27] LABS: Glucose,Whole Blood 148 mg/dL (75-99)
[2017-04-05 14:58] VITALS: BP 114/66; TEMP 97.9
--- NOTE | 2017-04-05 15:03 | DS ---
ADDENDUM: DATE OF ADMISSION: 03/21/2017 DATE OF DISCHARGE: 04/05/2017 This patient is going to be transferred to [facility] today and she will continue all the medications listed in the discharge summary dictated on 04/01/2017. In addition to all those medications listed, the patient will also continue on Duragesic patch 25 mcg/h 1 patch every 72 hours.
[2017-04-05 15:24] VITALS: PULSE 108
--- NOTE | 2017-04-05 18:44 | PN ---
DATE OF SERVICE: 04/04/2017 This is a 56-year-old white female who was admitted to the hospital with acute on chronic congestive heart failure and chronic obstructive pulmonary disease with acute exacerbation. The patient also had basilar pneumonia and patient was treated with IV antibiotics and updraft treatments, IV Solu-Medrol and the patient was seen by [facility] in consultation and also seen by Dr. Hinds in consultation for her pulmonary problems. The patient overall clinically she showed some improvement. Her respiratory difficulty had improved. The patient still continues to be extremely weak and not able to move out of the bed and she needed help to the bathroom and she was getting physical therapy and she was too weak to be discharged home and so she agreed to go to a rehab unit and accordingly arrangements were made for her to be transferred to rehab and apparently she is going to get a bed in [facility] and as soon as bed is ready she will be transferred to [facility].
--- NOTE | 2017-04-05 19:15 | PN ---
Mariah Loya is a 56-year-old female seen, evaluated and examined. Clinically patient is doing overall not much different from baseline. Still ongoing shortness of breath. Patient, however, does well with breathing treatments. Still has intermittent cough, but severity is better. She is being tapered down from her narcotic use. Her blood pressure is stable at 110/66, respirations 16, pulse 110, temperature 98, saturation of 100% on 3-L oxygen. HEENT: Unremarkable. NECK: Supple. LUNGS: Good air entry bilaterally without significant rales, rhonchi or rub. HEART: Regular rate and rhythm. S1, S2 audible. ABDOMEN: Soft. NEUROLOGICAL: Examination otherwise awake and alert. IMPRESSION: 1. Valvular heart disease related to severe degree of mitral stenosis and rheumatoid heart disease. 2. Chronic atrial fibrillation well anticoagulated on Coumadin. 3. Generalized weakness and medical debility. Patient is going to extended care facility. 4. Severe chronic obstructive pulmonary disease and emphysema. Patient remains on breathing treatments and will maintain on low dose prednisone. 5. History of Methicillin-sensitive Staphylococcus aureus infection, has been on oral antibiotics as per recommendations of Infect[facility] Disease Services. Will follow. Agree with discharge planning.
--- NOTE | 2017-05-04 15:39 | DS ---
DATE OF ADMISSION: 03/21/2017. DATE OF DISCHARGE: 04/01/2017. ADDENDUM TO DISCHARGE SUMMARY: This patient apparently had a pressure ulcer in the coccygeal area at the time of admission and this was appropriately taken care of by the nurses and apparently this decubitus ulcer progressed to stage IV at the time of discharge according to the nursing evaluation. VITALYD
== END 2017-04-05 16:10 | DRG 291 ==
LOC: EC 00:32 → 6SEL 03:41 → 5MS5E 03-29 21:55
PROVIDERS: ADMIT Internal Medicine; ATTEND Internal Medicine
PROC: 30233N1 Transfusion of Nonautologous Red Blood Cells into Peripheral Vein, Percutaneous Approach (ICD-10-PCS; principal; 2017-03-27)
DX: I11.0 Hypertensive heart disease with heart failure (principal); J96.21 Acute and chronic respiratory failure with hypoxia; J15.211 Pneumonia due to Methicillin susceptible Staphylococcus aureus; R64 Cachexia; J44.0 Chronic obstructive pulmonary disease with (acute) lower respiratory infection; J45.51 Severe persistent asthma with (acute) exacerbation; E44.1 Mild protein-calorie malnutrition; I48.1 Persistent atrial fibrillation; I48.92 Unspecified atrial flutter; J44.1 Chronic obstructive pulmonary disease with (acute) exacerbation; Z68.1 Body mass index [BMI] 19.9 or less, adult; L89.152 Pressure ulcer of sacral region, stage 2; L89.154 Pressure ulcer of sacral region, stage 4; I50.43 Acute on chronic combined systolic (congestive) and diastolic (congestive) heart failure; I27.2 Other secondary pulmonary hypertension; I08.1 Rheumatic disorders of both mitral and tricuspid valves; I42.9 Cardiomyopathy, unspecified; F17.210 Nicotine dependence, cigarettes, uncomplicated; K21.9 Gastro-esophageal reflux disease without esophagitis; D50.0 Iron deficiency anemia secondary to blood loss (chronic); E11.9 Type 2 diabetes mellitus without complications; D72.829 Elevated white blood cell count, unspecified; K76.9 Liver disease, unspecified; T38.0X5A Adverse effect of glucocorticoids and synthetic analogues, initial encounter; M54.5 Low back pain; R59.0 Localized enlarged lymph nodes; F41.9 Anxiety disorder, unspecified; Z86.19 Personal history of other infectious and parasitic diseases; Z90.710 Acquired absence of both cervix and uterus; Z87.01 Personal history of pneumonia (recurrent); Z87.440 Personal history of urinary (tract) infections; Z99.81 Dependence on supplemental oxygen; Z79.52 Long term (current) use of systemic steroids; Z79.01 Long term (current) use of anticoagulants; Z79.899 Other long term (current) drug therapy; Z88.6 Allergy status to analgesic agent; Z82.49 Family history of ischemic heart disease and other diseases of the circulatory system
CPT/HCPCS: 36415; 71020; 71275; 80048; 80053; 80061; 80162; 82550; 82553; 82728; 82785; 83036; 83540; 83550; 83880; 84443; 84484; 85025; 85379; 85610; 85730; 86001; 86003; 86606; 86609; 86850; 86900; 86901; 86920; 93005; 94640; 94760; 96365; 96368; 96375; 96376; 99291

== ENCOUNTER 2017-05-02 02:04 | Inpatient (IN) | payer OTHER ==
[2017-05-02] MEDS ORDERED: PNEUMONIA PROTOCOL UTILIZED 1 EACH MISC PO PRN (04:27)
[2017-05-02] MEDS ORDERED: PIPERACILLIN-TAZOBACTAM 3.375 GM in DEXTROSE/WATER 1 50ML.BAG IVPB STA (04:37)
[2017-05-02 05:37] LABS: Basophils # (A) 0.1 k/uL (0-0.2); Basophils % (A) 1 %; CH 19.8; CHCM 28.5; Eosinophils % (A) 0 %; HCT 36.8 % (34.0-46.0); HDW 3.59; Hypochromasia Marked; Luc # (Auto) 0.09; Luc % (Auto) 1; Lymphocytes # (A) 1.7 k/uL (1.0-4.8); Lymphocytes % (A) 21 %; MCH 20.2 pg (25.0-35.0); MCHC 28.9 g/dL (31.0-37.0); MCV 69.8 fL (80.0-100.0); Mean Platelet Volume 7.2; Microcytosis Moderate; Monocytes # (A) 0.5 k/uL (0-1.0); Monocytes % (A) 6 %; Neutrophils % (A) 72 %; Poikilocytosis Slight; RBC 5.27 m/uL (3.80-5.40); RDW 15.8 % (11.5-15.5); WBC 8.3 k/uL (3.8-10.6); WBC (Perox) 8.28
[2017-05-02 05:38] LABS: HGB 10.6 gm/dL (11.4-16.0)
[2017-05-02 05:45] LABS: INR 2.7 (<1.1); Partial Thromboplastin Time 39.4 sec (22.0-30.0)
[2017-05-02 05:50] LABS: ALT 25 U/L (9-52); AST 34 U/L (14-36); Alkaline Phosphatase 71 U/L (38-126); Anion Gap 6 mmol/L; Blood Urea Nitrogen 12 mg/dL (7-17); Calcium 8.7 mg/dL (8.4-10.2); Carbon Dioxide 37 mmol/L (22-30); Chloride 93 mmol/L (98-107); Glucose 125 mg/dL (74-99); Magnesium 1.8 mg/dL (1.6-2.3); Non-African American GFR(MDRD) >60 (>60 ml/min/1.73 sqM); Phosphorous 4.6 mg/dL (2.5-4.5); Potassium 4.4 mmol/L (3.5-5.1); Sodium 136 mmol/L (137-145); Total Bilirubin 0.7 mg/dL (0.2-1.3); Total Protein 5.7 g/dL (6.3-8.2)
[2017-05-02 05:51] LABS: Troponin I 0.02 ng/mL (0.000-0.034)
--- NOTE | 2017-05-02 08:24 | XR ---
EXAMINATION TYPE: XR chest 2V DATE OF EXAM: 05/02/2017 COMPARISON: Prior chest x-ray 03/27/2017 HISTORY: Difficulty in breathing TECHNIQUE: Frontal and lateral views of the chest are obtained. FINDINGS: Abnormal increased attenuation has progressed in the right lower lobe. No pneumothorax. In terstitium is increased. Heart remains enlarged. Pulmonary artery appears prominently. Evidence of ol d granulomatous disease. IMPRESSION: Increasing right pleural effusion and associated atelectasis. Follow-up to resolution to exclude underlying mass. Cardiomegaly, possible pulmonary artery hypertension, congestive heart fail ure, pulmonary artery hypertension.
[2017-05-02] MEDS: IPRATROPIUM-ALBUTEROL 3 ML NEB INHALATION SCH ×4 (08:45→19:52)
[2017-05-02] MEDS ORDERED: HYDROcodone/APAP 10-325MG 1 EACH TAB PO PRN (09:01)
[2017-05-02] MEDS ORDERED: IPRATROPIUM-ALBUTEROL 3 ML NEB IH PRN (09:01)
[2017-05-02] MEDS: SODIUM CHLORIDE 0.9% 1,000 ML IV SCH ×2 (09:06→22:57)
--- NOTE | 2017-05-02 11:02 | P.CNPUL ---
History of Present Illness Consult date: 05/02/17 Requesting physician: Morales Eubanks Reason for consult: COPD, pneumonia Chief complaint: shortness of breath History of present illness: This is a 57-year-old female patient being seen, examined and evaluated. Patient is well-known to our services. This Patient comes in with complaints of shortness of breath that had been increasing over the last few days. The patient does have a significant medical history for CHF, COPD that is severe, chronic persistent asthma but severe, atrial fibrillation, renal insufficiency and liver disease. This patient has a known history for reoccurring pneumonia as well. Patient states she uses 4-5 L of supplemental oxygen at home at all times. Upon examination the patient's resting up in bed on 5 L of supplemental oxygen, she states she has shortness of breath with any minimal exertion as well as extensive conversation. Chest x-ray has been reviewed and shows an increasing right pleural effusion which is associated with atelectasis, possible pulmonary artery hypertension, and congestive heart failure. Review of Systems Or tingling point review of systems was completed and is negative unless noted above in the HPI. Past Medical History Past Medical History: Atrial Fibrillation, Asthma, Heart Failure, COPD, Diabetes Mellitus, GERD/Reflux, Liver Disease, Pneumonia, Renal Disease, Respiratory Disorder, Skin Disorder Additional Past Medical History / Comment(s): Severe mitral valve stenosis and severe tricuspid valve regurgitation, O2 at 5L/NC ATC, current decub lower back per pt, UTI with sepsis, anemia, elevated liver enzymes in the past, chronic renal dx, Afib and has had RVR in past, chronic back pain. History of Any Multi-Drug Resistant Organisms: VRE Date of last positivie culture/infection: 10/25/16 MDRO Source:: Urine Past Surgical History: Hysterectomy Additional Past Surgical History / Comment(s): 2 mitral valve balloon valvuloplasty, colonoscopy, PICC line insertion (since removed). Past Anesthesia/Blood Transfusion Reactions: No Reported Reaction Additional Past Anesthesia/Blood Transfusion Reaction / Comment(s): Pt has received blood in past without reaction. Smoking Status: Current every day smoker - Past Family History Father Family Medical History: Dementia Additional Family Medical History / Comment(s): Father is in his 80's Mother Family Medical History: Myocardial Infarction (ND) Additional Family Medical History / Comment(s): valve disorder. Mother of a ND in her 30's Medications and Allergies Home Medications Medication Instructions Recorded Confirmed Type HYDROcodone/APAP 10-325MG [[place] 1 tab PO Q8H PRN 05/19/15 05/02/17 History 10-325] Ipratropium/Albuterol Sulfate 1 puff INHALATION RT-QID PRN 05/19/15 05/02/17 History [Combivent Respimat Inhaler] Albuterol Nebulized [Ventolin 2.5 mg INHALATION RT-QID PRN 02/01/17 05/02/17 History Nebulized] Digoxin [Digitek] 125 mcg PO DAILY 02/01/17 05/02/17 History Atorvastatin [Lipitor] 40 mg PO HS 05/02/17 05/02/17 History Furosemide [Lasix] 40 mg PO BID 05/02/17 05/02/17 History Montelukast [Singulair] 10 mg PO HS 05/02/17 05/02/17 History Potassium Chloride ER [K-Dur 10] 10 meq PO DAILY 05/02/17 05/02/17 History Warfarin [Coumadin] 2 mg PO HS 05/02/17 05/02/17 History traZODone HCL [Desyrel] 50 mg PO HS 05/02/17 05/02/17 History Allergies Allergy/AdvReac Type Severity Reaction Status Date / Time aspirin Allergy Unknown Verified 05/02/17 08:20 Physical Exam Vitals: Vital Signs Temp Pulse Pulse Resp BP BP Pulse Ox 05/02/17 08:57 80 05/02/17 08:46 84 05/02/17 07:52 97.5 F L 83 20 125/78 100 05/02/17 07:08 79 16 133/76 99 Intake and Output 05/01/17 05/02/17 05/02/17 22:59 06:59 14:59 Other: Weight 58.967 kg GENERAL EXAM: Alert, active, comfortable in no apparent distress. HEAD: Normocephalic. EYES: Normal reaction of pupils, equal size. NOSE: Clear with pink turbinates. THROAT: No erythema or exudates. NECK: No masses, no JVD. CHEST: No chest wall deformity. LUNGS: Poor air entry is present, scattered rhonchi as well as expiratory wheezes noted throughout. CVS: S1 and S2 normal with no audible mumurs, regular rhythm. ABDOMEN: No hepatosplenomegaly, normal bowel sounds, no guarding or rigidity. EXTREMITIES: Trace edema noted, pedal pulses palpable. SKIN: No rashes CENTRAL NERVOUS SYSTEM: No focal deficits, tone is normal in all 4 extremities. Results - Laboratory Findings CBC and BMP: 05/02/17 02:30 05/02/17 02:30 PT/INR, D-dimer PT 26.0 sec (9.0-12.0) H 05/02/17 02:30 INR 2.7 (<1.1) 05/02/17 02:30 D-Dimer 0.60 mg/L FEU (<0.60) H 05/02/17 02:30 Abnormal lab findings: Abnormal Labs 05/02/17 05/02/17 05/02/17 02:30 02:30 02:30 Hgb 10.6 L D MCV 69.8 L MCH 20.2 L MCHC 28.9 L RDW 15.8 H PT 26.0 H APTT 39.4 H D-Dimer 0.60 H Sodium 136 L Chloride 93 L Carbon Dioxide 37 H Glucose 125 H Phosphorus 4.6 H CK-MB (CK-2) Total Protein 5.7 L Albumin 2.9 L 05/02/17 02:30 Hgb MCV MCH MCHC RDW PT APTT D-Dimer Sodium Chloride Carbon Dioxide Glucose Phosphorus CK-MB (CK-2) 4.0 H* Total Protein Albumin - Diagnostic Findings Chest x-ray: report reviewed, image reviewed Assessment and Plan Plan: Assessment Right-sided pleural effusion with right sided pneumonia suspect mixed/gram- negative in nature Acute exacerbation of chronic obstructive pulmonary disease Acute on chronic hypoxic respiratory failure Congestive heart failure Probable pulmonary hypertension Atrial fibrillation Chronic anemia Severe protein calorie malnutrition Plan Medications have been reviewed and will be continued as ordered. Solu-Medrol and budesonide as well as Mucinex have been added. We'll obtain an ultrasound of the chest. Cardiology on consult for probable pulmonary hypertension and CHF. Continue with pulmonary hygiene, coughing and deep breathing exercises, and supportive care. Supplemental oxygen to maintain oxygen saturations of 92% or better. Continue nebulizer treatments. GI and DVT prophylaxis. We will add ensure 3 times a day with meals. Blood and sputum cultures are currently pending. We will also obtain a urine culture. We will continue to monitor labs /results and adjust treatment as necessary. Further recommendations pending. I performed an examination of the patient and discussed their management with the nurse practitioner. I have reviewed the nurse practitioner's note and agree with the documented findings and plan of care.
[2017-05-02 11:23] LABS: Glucose,Whole Blood 252 mg/dL (75-99)
[2017-05-02] MEDS: DIGOXIN 125 MCG TAB PO SCH (12:15)
[2017-05-02] MEDS: FUROSEMIDE 40 MG TAB PO SCH ×2 (12:15→20:36)
[2017-05-02] MEDS: POTASSIUM CHLORIDE ER 10 MEQ TAB.ER.PRT PO SCH (12:15)
[2017-05-02] MEDS: methylPREDNISolone SOD SUCCI 40 MG/ML 1 ML VIAL IV SCH ×3 (12:16→23:41)
[2017-05-02] MEDS: guaiFENesin 600 MG TABLET.ER PO SCH ×2 (12:16→20:37)
[2017-05-02] MEDS: INSULIN LISPRO (humaLOG) 300 UNIT/3 ML VIAL SQ SCH ×3 (12:17→21:03)
--- NOTE | 2017-05-02 12:26 | US ---
EXAMINATION TYPE: US chest DATE OF EXAM: 05/02/2017 COMPARISON: US & X-ray CLINICAL HISTORY: bilaterally pl effusions. Bilateral pleural effusion EXAM MEASUREMENTS: Right Pleural Effusion fluid pocket: 10.4 cm Right skin to fluid thickness: 1.8 cm Left Pleural Effusion fluid pocket: 0 cm Right side MARKED for possible thoracentesis outside the dept. Left side NOT MARKED for possible thoracentesis outside the dept. Pulmonologists are able to review the images in the patient?s EMR. IMPRESSIONS: Right pleural effusion is sizable.
[2017-05-02 14:35] LABS: Hemoglobin A1C 4.4 % (4.2-6.1)
[2017-05-02] MEDS: HYDROcodone/APAP 10-325MG 1 EACH TAB PO PRN ×3 (14:51→23:42)
[2017-05-02 17:15] LABS: Glucose,Whole Blood 206 mg/dL (75-99)
[2017-05-02] MEDS: PIPERACILLIN-TAZOBACTAM 3.375 GM in DEXTROSE/WATER 1 50ML.BAG IVPB SCH ×2 (18:11→23:42)
[2017-05-02] MEDS: BUDESONIDE 0.5 MG/2 ML NEBU INHALATION SCH (19:52)
[2017-05-02 20:12] LABS: Glucose,Whole Blood 306 mg/dL (75-99)
[2017-05-02] MEDS: ENOXAPARIN 40 MG/0.4 ML SYRINGE SQ SCH (20:36)
[2017-05-02] MEDS: traZODone HCL 50 MG TAB PO SCH (20:36)
[2017-05-02] MEDS: MONTELUKAST 10 MG TAB PO SCH (20:36)
[2017-05-02] MEDS: ATORVASTATIN 40 MG TAB PO SCH (20:36)
[2017-05-02 20:41] LABS: Glucose,Whole Blood 295 mg/dL (75-99)
[2017-05-02] MEDS ORDERED: WARFARIN 2 MG TAB PO SCH (21:00)
--- NOTE | 2017-05-02 21:19 | P.CONS ---
History of Present Illness - Reason for Consult Consult date: 05/02/17 - Chief Complaint Shortness of breath - History of Present Illness 57-year-old female who appears to be much older than her stated age, has gold stage IV COPD that is oxygen and inhaled steroid dependent presents to hospital with increasing shortness of breath cough minimal sputum production. Became profoundly weak. Was also having increasing amounts of pain to the right lower side of her chest. Because the she presented to the emergency center. Telemetry was some steroids and respiratory treatments and this has helped her as well as pain medications. She has less short of breath at the moment and she wasn't admission. But still is quite miserable. She sitting upright sitting forward relates this gives her some relief of the discomfort she has in her right lower chest toward the back. She is still short of breath compared to her baseline. She has no hemoptysis but does have a mild cough at times. She is not having significant sputum Production. she feels quite poorly overall. Review of Systems HEENT:Denies headache or acute visual change. Denies sinus or mouth discomforts. Denies neck stiffness or pain. Denies significant oral cavity pain. Denies difficulty on swallowing. Lungs: Persistent shortness of breath with cough no hemoptysis but positive serum production above her baseline Cardiovascular: Denies chest pain, chest wall pain, orthopnea, or syncope but has dyspnea on exertion Gastrointestinal:Denies nausea, vomiting, diarrhea, constipation, hematemesis, melena, hematochezia. No no significant change of bowel habit noticed. Musculoskeletal: denies significant myalgias or arthralgias. No new joint swelling. Denies new back pain. Skin: Denies new rash or lesions. No new ulcers or wounds are related.. Neuro: Denies headache or visual change. Became very weak and had some confusion which is improving. Psychiatric: Chronic anxiety Endocrine: Fatigue and has had some weight loss Past Medical History Past Medical History: Atrial Fibrillation, Asthma, Heart Failure, COPD, Diabetes Mellitus, GERD/Reflux, Liver Disease, Pneumonia, Renal Disease, Respiratory Disorder, Skin Disorder Additional Past Medical History / Comment(s): Severe mitral valve stenosis and severe tricuspid valve regurgitation, O2 at 5L/NC ATC, current decub lower back per pt, UTI with sepsis, anemia, elevated liver enzymes in the past, chronic renal dx, Afib and has had RVR in past, chronic back pain. History of Any Multi-Drug Resistant Organisms: VRE Year Discovered:: 10/25/16 MDRO Source:: Urine Past Surgical History: Hysterectomy Additional Past Surgical History / Comment(s): 2 mitral valve balloon valvuloplasty, colonoscopy, PICC line insertion (since removed). Past Anesthesia/Blood Transfusion Reactions: No Reported Reaction Additional Past Anesthesia/Blood Transfusion Reaction / Comm: Pt has received blood in past without reaction. Additional Psychological History / Comment(s): aleksandr. Lives with adult daughter and her spouse. Has nebulizer and glucose monitor. no experience or international travel. No animal exposures. Positive tobacco use. No current alcohol or injection drug use Smoking Status: Current every day smoker - Past Family History Father Family Medical History: Dementia Additional Family Medical History / Comment(s): Father is in his 80's Mother Family Medical History: Myocardial Infarction (AL) Additional Family Medical History / Comment(s): valve disorder. Mother of a AL in her 30's Medications and Allergies Home Medications and Allergies Comment(s): Current Medications Hydrocodone Bitart/Acetaminophen ([place] 10) 1 each PO Q4H PRN PRN Reason: Pain Last Admin: 05/02/17 19:32 Dose: 1 each Albuterol/Ipratropium (Duoneb 0.5 Mg-3 Mg/3 Ml Soln) 3 ml INHALATION RT-QID [facility] Last Admin: 05/02/17 19:52 Dose: 3 ml Albuterol/Ipratropium (Duoneb 0.5 Mg-3 Mg/3 Ml Soln) 3 ml IH RT-QID PRN PRN Reason: Shortness Of Breath Atorvastatin Calcium (Lipitor) 40 mg PO HS [facility] Last Admin: 05/02/17 20:36 Dose: 40 mg Budesonide (Pulmicort) 0.5 mg INHALATION RT-BID [facility] Last Admin: 05/02/17 19:52 Dose: 0.5 mg Digoxin (Lanoxin) 125 mcg PO DAILY [facility] Last Admin: 05/02/17 12:15 Dose: 125 mcg Enoxaparin Sodium (Lovenox) 40 mg SQ Q12HR [facility] Last Admin: 05/02/17 20:36 Dose: 40 mg Furosemide (Lasix) 40 mg PO BID [facility] Last Admin: 05/02/17 20:36 Dose: 40 mg Guaifenesin (Mucinex) 600 mg PO Q12HR [facility] Last Admin: 05/02/17 20:37 Dose: 600 mg Levofloxacin 750 mg/ IV (Solution) 150 mls @ 100 mls/hr IVPB Q24H [facility] Stop: 05/13/17 05:01 Piperacillin/Tazobactam/ (Dextrose 3.375 gm/ IV Solution) 50 mls @ 12.5 mls/hr IVPB Q8HR [facility] Stop: 05/12/17 16:01 Last Admin: 05/02/17 18:11 Dose: 12.5 mls/hr Sodium Chloride (Saline 0.9%) 1,000 mls @ 100 mls/hr IV .Q10H [facility] Last Admin: 05/02/17 09:06 Dose: 100 mls/hr Insulin Human Lispro (Humalog) 0 unit SQ ACHS [facility] PRN Reason: Protocol Last Admin: 05/02/17 21:03 Dose: 8 unit Methylprednisolone Sodium Succinate (Solu-Medrol) 40 mg IV Q8HR [facility] Last Admin: 05/02/17 17:09 Dose: 40 mg Miscellaneous Information (Pneumonia Protocol Utilized) 1 each PO ONCE PRN PRN Reason: Per Protocol Montelukast Sodium (Singulair) 10 mg PO [facility] Last Admin: 05/02/17 20:36 Dose: 10 mg Potassium Chloride (K-Dur 10) 10 meq PO DAILY [facility] Last Admin: 05/02/17 12:15 Dose: 10 meq Trazodone HCl (Desyrel) 50 mg PO [facility] Last Admin: 05/02/17 20:36 Dose: Not Given Home Medications Medication Instructions Recorded Confirmed Type HYDROcodone/APAP 10-325MG [[place] 1 tab PO Q8H PRN 05/19/15 05/02/17 History 10-325] Ipratropium/Albuterol Sulfate 1 puff INHALATION RT-QID PRN 05/19/15 05/02/17 History [Combivent Respimat Inhaler] Albuterol Nebulized [Ventolin 2.5 mg INHALATION RT-QID PRN 02/01/17 05/02/17 History Nebulized] Digoxin [Digitek] 125 mcg PO DAILY 02/01/17 05/02/17 History Atorvastatin [Lipitor] 40 mg PO HS 05/02/17 05/02/17 History Furosemide [Lasix] 40 mg PO BID 05/02/17 05/02/17 History Montelukast [Singulair] 10 mg PO HS 05/02/17 05/02/17 History Potassium Chloride ER [K-Dur 10] 10 meq PO DAILY 05/02/17 05/02/17 History Warfarin [Coumadin] 2 mg PO HS 05/02/17 05/02/17 History traZODone HCL [Desyrel] 50 mg PO HS 05/02/17 05/02/17 History Allergies Allergy/AdvReac Type Severity Reaction Status Date / Time aspirin Allergy Unknown Verified 05/02/17 08:20 Physical Exam Vitals: Vital Signs Temp Pulse Pulse Resp BP BP Pulse Ox 05/02/17 20:09 84 05/02/17 19:52 84 05/02/17 15:49 86 05/02/17 15:35 84 05/02/17 15:00 77 18 101/58 100 05/02/17 12:16 86 05/02/17 12:05 82 05/02/17 08:57 80 05/02/17 08:46 84 05/02/17 07:52 97.5 F L 83 20 125/78 100 05/02/17 07:08 79 16 133/76 99 05/02/17 04:27 99 Intake and Output 05/02/17 05/02/17 05/02/17 06:59 14:59 22:59 Intake Total 700 Balance 700 Intake: Intake, IV Titration 700 Amount Sodium Chloride 0.9% 1, 700 000 ml @ 100 mls/hr IV . Q10H [facility] Rx#:[id number] Other: Voiding Method Bedpan Bedside Commode Weight 58.967 kg 57-year-old woman who looks much older than her stated age. She is chronically ill. HEENT: Anicteric conjunctiva are pink and moist nasal mucosa grossly intact without significant lesions, there is no thrush. Poor dentition Neck: The neck is supple without significant lymphadenopathy or thyromegaly. Lungs: Symmetrical air entry with wheezes scattered throughout the lung iqbal. Evidence of markedly diminished breath sounds to the right base. Evidence of dullness to the right base. Egophony is noted to the right base. Heart: irregular no S3 loud S4 There is no significant murmur click or rub, PMI was nondisplaced. Abdomen: Positive bowel sounds soft and nontender without palpable masses or organomegaly. There was no guarding or rebound. Extremities: The extremities have just trace edema. She has no tenderness over the joints. Skin the patient has changes of diabetes her lower extremities however she has a difficulty with chronically picking at her skin and has innumerable lesions that healed over arms and legs at this time. None of them are open are grossly draining at this time is evidence of some erythema to the coccyx. With this the Aquacel silver dressing has been applied. It has the foam border. Neuro: She is awake alert oriented to person place and time and does not exhibit any acute gross focal sensory motor deficits Results CBC & Chem 7: 05/02/17 02:30 05/02/17 02:30 Labs: Abnormal Lab Results - Last 24 Hours (Table) 05/02/17 05/02/17 05/02/17 Range/Units 02:30 02:30 02:30 Hgb 10.6 L D (11.4-16.0) gm/dL MCV 69.8 L (80.0-100.0) fL MCH 20.2 L (25.0-35.0) pg MCHC 28.9 L (31.0-37.0) g/dL RDW 15.8 H (11.5-15.5) % PT 26.0 H (9.0-12.0) sec APTT 39.4 H (22.0-30.0) sec D-Dimer 0.60 H (<0.60) mg/L FEU Sodium 136 L (137-145) mmol/L Chloride 93 L (98-107) mmol/L Carbon Dioxide 37 H (22-30) mmol/L Glucose 125 H (74-99) mg/dL POC Glucose (mg/dL) (75-99) mg/dL Phosphorus 4.6 H (2.5-4.5) mg/dL CK-MB (CK-2) (0.0-2.4) ng/mL Total Protein 5.7 L (6.3-8.2) g/dL Albumin 2.9 L (3.5-5.0) g/dL 05/02/17 05/02/17 05/02/17 Range/Units 02:30 11:21 17:14 Hgb (11.4-16.0) gm/dL MCV (80.0-100.0) fL MCH (25.0-35.0) pg MCHC (31.0-37.0) g/dL RDW (11.5-15.5) % PT (9.0-12.0) sec APTT (22.0-30.0) sec D-Dimer (<0.60) mg/L FEU Sodium (137-145) mmol/L Chloride (98-107) mmol/L Carbon Dioxide (22-30) mmol/L Glucose (74-99) mg/dL POC Glucose (mg/dL) 252 H 206 H (75-99) mg/dL Phosphorus (2.5-4.5) mg/dL CK-MB (CK-2) 4.0 H* (0.0-2.4) ng/mL Total Protein (6.3-8.2) g/dL Albumin (3.5-5.0) g/dL 05/02/17 05/02/17 Range/Units 20:11 20:21 Hgb (11.4-16.0) gm/dL MCV (80.0-100.0) fL MCH (25.0-35.0) pg MCHC (31.0-37.0) g/dL RDW (11.5-15.5) % PT (9.0-12.0) sec APTT (22.0-30.0) sec D-Dimer (<0.60) mg/L FEU Sodium (137-145) mmol/L Chloride (98-107) mmol/L Carbon Dioxide (22-30) mmol/L Glucose (74-99) mg/dL POC Glucose (mg/dL) 306 H 295 H (75-99) mg/dL Phosphorus (2.5-4.5) mg/dL CK-MB (CK-2) (0.0-2.4) ng/mL Total Protein (6.3-8.2) g/dL Albumin (3.5-5.0) g/dL Laboratory Results WBC 8.3 k/uL (3.8-10.6) 05/02/17 02:30 RBC 5.27 m/uL (3.80-5.40) 05/02/17 02:30 Hgb 10.6 gm/dL (11.4-16.0) L D 05/02/17 02:30 Hct 36.8 % (34.0-46.0) 05/02/17 02:30 MCV 69.8 fL (80.0-100.0) L 05/02/17 02:30 MCH 20.2 pg (25.0-35.0) L 05/02/17 02:30 MCHC 28.9 g/dL (31.0-37.0) L 05/02/17 02:30 RDW 15.8 % (11.5-15.5) H 05/02/17 02:30 Plt Count 373 k/uL (150-450) D 05/02/17 02:30 Neutrophils % 72 % 05/02/17 02:30 Lymphocytes % 21 % 05/02/17 02:30 Monocytes % 6 % 05/02/17 02:30 Eosinophils % 0 % 05/02/17 02:30 Basophils % 1 % 05/02/17 02:30 Neutrophils # 6.0 k/uL (1.3-7.7) 05/02/17 02:30 Lymphocytes # 1.7 k/uL (1.0-4.8) 05/02/17 02:30 Monocytes # 0.5 k/uL (0-1.0) 05/02/17 02:30 Eosinophils # 0.0 k/uL (0-0.7) 05/02/17 02:30 Basophils # 0.1 k/uL (0-0.2) 05/02/17 02:30 Hypochromasia Marked 05/02/17 02:30 Poikilocytosis Slight 05/02/17 02:30 Microcytosis Moderate 05/02/17 02:30 PT 26.0 sec (9.0-12.0) H 05/02/17 02:30 INR 2.7 (<1.1) 05/02/17 02:30 APTT 39.4 sec (22.0-30.0) H 05/02/17 02:30 D-Dimer 0.60 mg/L FEU (<0.60) H 05/02/17 02:30 Sodium 136 mmol/L (137-145) L 05/02/17 02:30 Potassium 4.4 mmol/L (3.5-5.1) 05/02/17 02:30 Chloride 93 mmol/L (98-107) L 05/02/17 02:30 Carbon Dioxide 37 mmol/L (22-30) H 05/02/17 02:30 Anion Gap 6 mmol/L 05/02/17 02:30 BUN 12 mg/dL (7-17) 05/02/17 02:30 Creatinine 0.70 mg/dL (0.52-1.04) 05/02/17 02:30 Est GFR (MDRD) Af Amer >60 (>60 ml/min/1.73 sqM) 05/02/17 02:30 Est GFR (MDRD) Non-Af >60 (>60 ml/min/1.73 sqM) 05/02/17 02:30 Glucose 125 mg/dL (74-99) H 05/02/17 02:30 POC Glucose (mg/dL) 295 mg/dL (75-99) H 05/02/17 20:21 POC Glu Log Stacker Operator ID Melany Chand 05/02/17 20:[address] Glu mg/dL 80 mg/dL 05/02/17 02:30 Hemoglobin A1c 4.4 % (4.2-6.1) 05/02/17 02:30 Calcium 8.7 mg/dL (8.4-10.2) 05/02/17 02:30 Phosphorus 4.6 mg/dL (2.5-4.5) H 05/02/17 02:30 Magnesium 1.8 mg/dL (1.6-2.3) 05/02/17 02:30 Total Bilirubin 0.7 mg/dL (0.2-1.3) 05/02/17 02:30 AST 34 U/L (14-36) 05/02/17 02:30 ALT 25 U/L (9-52) 05/02/17 02:30 Alkaline Phosphatase 71 U/L (38-126) 05/02/17 02:30 Total Creatine Kinase 90 U/L (30-135) 05/02/17 02:30 CK-MB (CK-2) 4.0 ng/mL (0.0-2.4) H* 05/02/17 02:30 CK-MB (CK-2) Rel Index 4.4 05/02/17 02:30 Troponin I 0.020 ng/mL (0.000-0.034) 05/02/17 02:30 NT-Pro-B Natriuret Pep 8080 pg/mL 05/02/17 02:30 Total Protein 5.7 g/dL (6.3-8.2) L 05/02/17 02:30 Albumin 2.9 g/dL (3.5-5.0) L 05/02/17 02:30 Assessment and Plan (1) COPD (chronic obstructive pulmonary disease) Status: Acute (2) Afib Status: Acute (3) Pleural effusion Narrative/Plan: 57-year-old female who has advanced COPD that is oxygen and inhaled steroid dependent, but continues to smoke. Presents to Hospital feeling increasing shortness of breath. Was associated with increasing amounts of discomfort to her right lower chest especially posterior. Chest ray and ultrasound reveal evidence of an increasing effusion to that area. Potentially will have a thoracentesis. Prior cultures have been negative. No history of MRSA. Given her complex history currently be treating with piperacillin tazobactam and Levaquin until we have further data. Blood cultures are in process. Await sputum culture. Legionella and mycoplasma be tested. If a thoracentesis performed material should be sent for extensive testing that includes routine bacterial, anaerobic bacteria, fungal culture, mycobacterial culture, and viral PCR. With current steroid therapy as well as the breathing treatments she is symptomatically improving. The patient does have a stage II area on the coccyx for which the Aquacel silver foam dressing is then applied. Advised to try to not always being is sitting up position to offload some pressure to her coccyx. Status: Acute Code(s): J90 - PLEURAL EFFUSION, NOT ELSEWHERE CLASSIFIED
[2017-05-02 23:45] LABS: Appearance,Urine Clear (Clear); Bilirubin,Urine Negative (Negative); Glucose,Urine (UA) Negative (Negative); Ketones,Urine Negative (Negative); Leukocyte Esterase,Urine Negative (Negative); Mucus,Urine Rare /hpf; Nitrite,Urine Negative (Negative); PH, Urine 6.5 (5.0-8.0); Particle Count 1584; Protein,Urine Trace (Negative); RBC,Urine 7 /hpf (0-5); Specific Gravity,Urine 1.012 (1.001-1.035); Squamous Epithelial Cell,Urine <1 /hpf (0-4); UA Billing (MACRO vs. MICRO) MICRO; Urobilinogen,Urine <2.0 mg/dL (<2.0); WBC,Urine 1 /hpf (0-5)
[2017-05-03] MEDS: IPRATROPIUM-ALBUTEROL 3 ML NEB INHALATION SCH ×5 (00:24→20:40)
[2017-05-03] MEDS ORDERED: IPRATROPIUM-ALBUTEROL 3 ML NEB INHALATION PRN (00:29)
[2017-05-03] MEDS: traZODone HCL 50 MG TAB PO SCH ×2 (02:34→21:24)
[2017-05-03] MEDS: SODIUM CHLORIDE 0.9% 1,000 ML IV SCH ×3 (02:35→23:43)
[2017-05-03] MEDS: HYDROcodone/APAP 10-325MG 1 EACH TAB PO PRN ×5 (03:54→21:21)
[2017-05-03] MEDS: LEVOFLOXACIN 750MG-D5W PMX 750 MG in DEXTROSE/WATER 1 150ML.BAG IVPB SCH (05:14)
[2017-05-03 07:03] LABS: Glucose,Whole Blood 160 mg/dL (75-99)
[2017-05-03] MEDS: ENOXAPARIN 40 MG/0.4 ML SYRINGE SQ SCH ×2 (07:47→21:21)
[2017-05-03] MEDS: methylPREDNISolone SOD SUCCI 40 MG/ML 1 ML VIAL IV SCH ×3 (07:47→23:43)
[2017-05-03] MEDS: INSULIN LISPRO (humaLOG) 300 UNIT/3 ML VIAL SQ SCH ×4 (07:47→21:21)
[2017-05-03] MEDS: POTASSIUM CHLORIDE ER 10 MEQ TAB.ER.PRT PO SCH (07:48)
[2017-05-03] MEDS: FUROSEMIDE 40 MG TAB PO SCH ×2 (07:48→21:24)
[2017-05-03] MEDS: DIGOXIN 125 MCG TAB PO SCH (07:48)
[2017-05-03] MEDS: guaiFENesin 600 MG TABLET.ER PO SCH ×2 (07:49→21:24)
[2017-05-03] MEDS: BUDESONIDE 0.5 MG/2 ML NEBU INHALATION SCH ×2 (07:54→20:40)
[2017-05-03 08:17] LABS: Basophils % (A) 0 %; CH 19.7; CHCM 28.6; Eosinophils % (A) 0 %; HCT 31.1 % (34.0-46.0); HDW 3.58; Hypochromasia Marked; Luc # (Auto) 0.04; Luc % (Auto) 0; Lymphocytes # (A) 1.7 k/uL (1.0-4.8); Lymphocytes % (A) 16 %; MCHC 29.1 g/dL (31.0-37.0); MCV 68.9 fL (80.0-100.0); Mean Platelet Volume 6.7; Microcytosis Marked; Monocytes # (A) 0.4 k/uL (0-1.0); Monocytes % (A) 4 %; Neutrophils # (A) 8.4 k/uL (1.3-7.7); Neutrophils % (A) 80 %; Poikilocytosis Slight; RBC 4.52 m/uL (3.80-5.40); RDW 15.8 % (11.5-15.5); WBC 10.5 k/uL (3.8-10.6); WBC (Perox) 10.62
[2017-05-03 08:22] LABS: INR 3.6 (<1.1); Prothrombin Time 35.1 sec (9.0-12.0)
[2017-05-03 08:24] LABS: HGB 9.1 gm/dL (11.4-16.0)
[2017-05-03 08:41] LABS: ALT 20 U/L (9-52); AST 19 U/L (14-36); Alkaline Phosphatase 56 U/L (38-126); Anion Gap 8 mmol/L; Blood Urea Nitrogen 15 mg/dL (7-17); Calcium 8.6 mg/dL (8.4-10.2); Carbon Dioxide 35 mmol/L (22-30); Chloride 92 mmol/L (98-107); Glucose 130 mg/dL (74-99); Magnesium 1.7 mg/dL (1.6-2.3); Non-African American GFR(MDRD) >60 (>60 ml/min/1.73 sqM); Potassium 4.3 mmol/L (3.5-5.1); Sodium 135 mmol/L (137-145); Total Bilirubin 0.7 mg/dL (0.2-1.3); Total Protein 5.4 g/dL (6.3-8.2)
[2017-05-03] MEDS: PIPERACILLIN-TAZOBACTAM 3.375 GM in DEXTROSE/WATER 1 50ML.BAG IVPB SCH ×3 (08:46→23:42)
--- NOTE | 2017-05-03 10:02 | HP ---
DATE OF ADMISSION: 05/02/17 CHIEF COMPLAINT: Severe shortness of breath. This is a 57 year old white female who was brought to the emergency room with increasing shortness of breath. The patient is known to have chronic ( ) chronic congestive heart failure and the patient was getting progressively dyspneic and the patient was brought to the emergency room. In the ER, chest x- ray showed fairly large right pleural effusion and infiltrate and the patient is known to have chronic congestive heart failure and chronic atrial fibrillation. The patient was also found to be extremely weak and the patient was admitted to the hospital for further evaluation and treatment. Her past medical history reveals that the patient has multiple chronic medical problems. She is known to have chronic obstructive pulmonary disease and she has had several hospitalizations for acute exacerbation and she is also known to have chronic atrial fibrillation and chronic congestive heart failure, advanced mitral stenosis and has had a valvuloplasty in the past but still the patient has severe mitral stenosis and she was evaluated in the past by cardiac surgeon for possible ( ) surgery but because of her extremely poor general condition, cardiac surgeon recommended medical management. She is also known to have diabetes mellitus. She has had renal failure in the past and also has chronic anemia, chronic low back pain. Medications: 1. ( ) nebulizations. 2. ( ). 3. ( ). 4. Lasix 40 mg b.i.d. 5. Mucinex 1 mg po q12 hours. 6. [place] 10/325 every eight hours. 7. NovoLog sliding scale. 8. She has been started on Levaquin 750 mg IV piggyback q24 hours. 9. She is also receiving Solu-Medrol 40 mg IV q8 hours. 10. Singulair 10 mg po daily q.h.s. 11. Trazodone 50 mg po daily. 12. Lipitor 40 mg po daily. 13. Coumadin 2 mg daily. 14. Potassium chloride 20 meq daily. MTDD
--- NOTE | 2017-05-03 10:52 | P.PN ---
Subjective 05/02/17 This is a 57-year-old female patient being seen, examined and evaluated. Patient is well-known to our services. This Patient comes in with complaints of shortness of breath that had been increasing over the last few days. The patient does have a significant medical history for CHF, COPD that is severe, chronic persistent asthma but severe, atrial fibrillation, renal insufficiency and liver disease. This patient has a known history for reoccurring pneumonia as well. Patient states she uses 4-5 L of supplemental oxygen at home at all times. Upon examination the patient's resting up in bed on 5 L of supplemental oxygen, she states she has shortness of breath with any minimal exertion as well as extensive conversation. Chest x-ray has been reviewed and shows an increasing right pleural effusion which is associated with atelectasis, possible pulmonary artery hypertension, and congestive heart failure. 05/03/17 upon examination today the patient's resting up in bed and continues to be on 5 L of supplemental oxygen. Patient continues to have shortness of breath with any minimal exertion and extensive conversation. Patient did undergo an ultrasound of the chest yesterday which revealed a right pleural effusion fluid pocket of 10.4 cm this has increased significantly since her last ultrasound of the chest which was done 02/08/2017 which showed a right pleural effusion pocket of 4.2 at that time. During that admission in January the effusion was too small to undergo a thoracentesis. Of note ,since its progression, the patient is a candidate to have the thoracentesis performed in regards to size. However the patient was on Coumadin for chronic A. fib and her INR yesterday was 2.9. Yesterday we discontinued the Coumadin and put the patient on Lovenox in preparation for thoracentesis. A repeat INR was performed today and is currently 3.6. We would like the patient's INR to be closer to 1.4 before we perform the thoracentesis. Repeat labs will be drawn tomorrow. Objective - Vital Signs Vital signs: Vital Signs Temp 97.7 F 05/03/17 07:00 Pulse 82 05/03/17 08:13 Resp 18 05/03/17 07:00 BP 136/67 05/03/17 07:00 Pulse Ox 100 05/03/17 07:00 Intake & Output 05/02/17 05/03/17 05/03/17 18:59 06:59 18:59 Intake Total 700 1200 60 Balance 700 1200 60 Weight 48.308 kg Intake: Intake, IV Titration 700 1200 Amount Levofloxacin 750Mg-D5w 150 Pmx 750 mg In Dextrose/ Water 1 150ml.bag @ 100 mls/hr IVPB Q24H [facility] Rx#: [id number] Piperacillin-Tazobactam 3 50 .375 gm In Dextrose/Water 1 50ml.bag @ 12.5 mls/hr IVPB Q8HR [facility] Rx#: [id number] Sodium Chloride 0.9% 1, 700 1000 000 ml @ 100 mls/hr IV . Q10H [facility] Rx#:[id number] Oral 60 Other: Voiding Method Bedside Commode Bedside Commode Bedside Commode - Exam GENERAL EXAM: Alert, cachectic, comfortable in no apparent distress. HEAD: Normocephalic. EYES: Normal reaction of pupils, equal size. NOSE: Clear with pink turbinates. THROAT: No erythema or exudates. NECK: No masses, no JVD. CHEST: No chest wall deformity. LUNGS: Poor air entry is present, scattered rhonchi as well as expiratory wheezes noted throughout. Decreased breath sounds on the right base. Positive for dullness with percussion the right side as well. CVS: S1 and S2 normal with no audible mumurs, regular rhythm. ABDOMEN: No hepatosplenomegaly, normal bowel sounds, no guarding or rigidity. EXTREMITIES: Trace edema noted, pedal pulses palpable. SKIN: No rashes, dressing in place to coccyx wound CENTRAL NERVOUS SYSTEM: No focal deficits, tone is normal in all 4 extremities. - Labs CBC & Chem 7: 05/03/17 07:15 05/03/17 07:15 Labs: Abnormal Lab Results - Last 24 Hours (Table) 05/02/17 05/02/17 05/02/17 Range/Units 11:21 17:14 20:11 Hgb (11.4-16.0) gm/dL Hct (34.0-46.0) % MCV (80.0-100.0) fL MCH (25.0-35.0) pg MCHC (31.0-37.0) g/dL RDW (11.5-15.5) % Neutrophils # (1.3-7.7) k/uL PT (9.0-12.0) sec Sodium (137-145) mmol/L Chloride (98-107) mmol/L Carbon Dioxide (22-30) mmol/L Glucose (74-99) mg/dL POC Glucose (mg/dL) 252 H 206 H 306 H (75-99) mg/dL Total Protein (6.3-8.2) g/dL Albumin (3.5-5.0) g/dL Urine Protein (Negative) Urine Blood (Negative) Urine RBC (0-5) /hpf Hyaline Casts (0-2) /lpf Urine Mucus (None) /hpf 05/02/17 05/02/17 05/03/17 Range/Units 20:21 23:05 07:01 Hgb (11.4-16.0) gm/dL Hct (34.0-46.0) % MCV (80.0-100.0) fL MCH (25.0-35.0) pg MCHC (31.0-37.0) g/dL RDW (11.5-15.5) % Neutrophils # (1.3-7.7) k/uL PT (9.0-12.0) sec Sodium (137-145) mmol/L Chloride (98-107) mmol/L Carbon Dioxide (22-30) mmol/L Glucose (74-99) mg/dL POC Glucose (mg/dL) 295 H 160 H (75-99) mg/dL Total Protein (6.3-8.2) g/dL Albumin (3.5-5.0) g/dL Urine Protein Trace H (Negative) Urine Blood Trace H (Negative) Urine RBC 7 H (0-5) /hpf Hyaline Casts 101 H (0-2) /lpf Urine Mucus Rare H (None) /hpf 05/03/17 05/03/17 05/03/17 Range/Units 07:15 07:15 07:15 Hgb 9.1 L D (11.4-16.0) gm/dL Hct 31.1 L (34.0-46.0) % MCV 68.9 L (80.0-100.0) fL MCH 20.0 L (25.0-35.0) pg MCHC 29.1 L (31.0-37.0) g/dL RDW 15.8 H (11.5-15.5) % Neutrophils # 8.4 H (1.3-7.7) k/uL PT 35.1 H (9.0-12.0) sec Sodium 135 L (137-145) mmol/L Chloride 92 L (98-107) mmol/L Carbon Dioxide 35 H (22-30) mmol/L Glucose 130 H (74-99) mg/dL POC Glucose (mg/dL) (75-99) mg/dL Total Protein 5.4 L (6.3-8.2) g/dL Albumin 2.7 L (3.5-5.0) g/dL Urine Protein (Negative) Urine Blood (Negative) Urine RBC (0-5) /hpf Hyaline Casts (0-2) /lpf Urine Mucus (None) /hpf Microbiology - Last 24 Hours (Table) 05/02/17 02:30 Blood Culture - Preliminary Blood No Growth after 24 hours Assessment and Plan Plan: Assessment Right-sided pleural effusion with right sided pneumonia suspect mixed/gram- negative in nature Acute exacerbation of chronic obstructive pulmonary disease Acute on chronic hypoxic respiratory failure Congestive heart failure Probable pulmonary hypertension Atrial fibrillation Chronic anemia Severe protein calorie malnutrition Plan Medications have been reviewed and will be continued as ordered. Continue with Solu-Medrol and budesonide as well as Mucinex. Coumadin was discontinued and the patient was put on Lovenox yesterday evening. Ultrasound of the chest reveals a 10.1 cm right pleural effusion fluid pocket, patient will need to go under a thoracentesis procedure when her INR is closer to 1.4. When we obtain the thoracentesis fluid will be sent to lab for testing. Repeat labs in the morning. Cardiology on consult for probable pulmonary hypertension and CHF. Infectious disease on consult. Continue with pulmonary hygiene, coughing and deep breathing exercises, and supportive care. Supplemental oxygen to maintain oxygen saturations of 92% or better. Continue nebulizer treatments. GI and DVT prophylaxis. We will add ensure 3 times a day with meals. Blood, urine and sputum cultures are currently pending. We will continue to monitor labs/ results and adjust treatment as necessary. Further recommendations pending. I performed an examination of the patient and discussed their management with the nurse practitioner. I have reviewed the nurse practitioner's note and agree with the documented findings and plan of care.
--- NOTE | 2017-05-03 11:00 | HP ---
DATE OF ADMISSION: 05/02/2017 CHIEF COMPLAINT: Severe shortness of breath. This is a 57-year-old white female who was brought to the emergency room with increasing shortness of breath. She was getting progressively worse for the past several days and in the emergency room she was found to have chronic obstructive pulmonary disease with acute exacerbation and chest x-ray showing fairly large right pleural effusion and infiltrate and patient is also known to have multiple chronic illness. She is known to have chronic atrial fibrillation , chronic congestive heart failure and patient was admitted to the hospital for further evaluation and treatment. In the emergency room, here CBC showed a WBC count of 8.3, hemoglobin 10.1, platelet count 573,0000. PT and INR in the therapeutic range, sodium 136, potassium 4.4, BUN 12 and creatinine 0.70. Her past medical history reveals that she has multiple chronic medical problems. She has chronic atrial fibrillation, very advanced mitral stenosis and she has history of mild mitral valvuloplasty in the past and currently she has a very advanced stenosis and she has had an evaluation by cardiac surgeon but because of poor general condition, the cardiac surgeon recommended continuing medical management. She is also known to have chronic congestive heart failure, diabetes mellitus, has had a chronic renal failure and chronic anemia and her current medications include DuoNeb nebulization, Pulmicort inhalers, digoxin 125 mcg daily, Lasix 40 mg b.i.d. and Mucinex 600 mg p.o. q.12 hours and [place] 10/325 one q.8 hours p.r.n. and she is on NovoLog sliding scale, Levaquin 750 mg IV piggyback q.24 hours, Solu-Medrol 40 mg IV q.8 hours, Singulair 10 mg daily at bedtime, potassium chloride 10 mEq daily, Trazodone 50 mg daily and Coumadin 2 mg daily, Lipitor 40 mg daily. Patient used to be a heavy smoker and she has no know drug allergies. FAMILY HISTORY: Positive for lung disease and cancer. REVIEW OF SYSTEMS: Patient denies any headache but she is complaining of severe low back pain and she is extremely weak. She is short of breath even at rest and using nasal oxygen constantly. She is ( ). There is no jaundice. There is no generalized lymphadenopathy or carotid bruits. Pulse 76 per minute , irregular. Heart is in atrial fibrillation with controlled ventricular rate. Lungs reveal scattered rhonchi bilaterally and bilateral respiratory wheeze heard. Abdomen soft and nontender, there is no mass palpable. Examination of the lower extremities reveal minimal bilateral pitting edema. Neuro alert and oriented. ( ). IMPRESSION: 1. Chronic obstructive pulmonary disease with acute exacerbation. 2. Marked right pleural effusion. 3. Right lower lobe pneumonia. 4. Chronic atrial fibrillation. 5. Advanced mitral stenosis. 6. Acute on chronic congestive heart failure, both combined systolic and diastolic. 7. Diabetes mellitus. 8. History of renal failure. 9. History of chronic anemia. 10. Chronic low back pain. PLAN: Patient will be admitted to hospital. Her heart rate will be monitored by telemetry and will get Cardiology and Pulmonology consultations. She also has a decubitus ulcer in the sacral and coccygeal area. [facility] and also Dr. Castellon. Prognosis guarded. The diagnosis, prognosis and therapeutic plans were discussed in detail with the patient. ISACC
[2017-05-03 11:35] LABS: Glucose,Whole Blood 164 mg/dL (75-99)
[2017-05-03] MEDS: DOCUSATE 100 MG CAP PO SCH (12:00)
--- NOTE | 2017-05-03 15:20 | XR ---
EXAMINATION TYPE: XR chest 2V DATE OF EXAM: 05/03/2017 COMPARISON: Prior chest x-ray 05/02/2017 HISTORY: Pneumonia TECHNIQUE: Frontal and lateral views of the chest are obtained. FINDINGS: No significant interval change. IMPRESSION: Stable compared to prior exam. Right pleural effusion and associated atelectasis. Correl ate for pneumonia. Follow-up to resolution. There may be cardiomegaly, old granulomatous disease, pul monary artery hypertension.
--- NOTE | 2017-05-03 17:05 | CONS ---
Mrs. Loya has a history of chronic atrial fibrillation and chronic tobacco use, rheumatic mitral valve disease, status post mitral valvuloplasty. She is not felt to be a candidate for any surgical intervention because of her overall status. She presented with symptoms of progressive dyspnea on exertion. Unfortunately she continues to smoke. She has been having a cough, but no symptoms of chest discomfort. She has discomfort in the right shoulder. She denies any dizziness or palpations. She has some peripheral edema that has improved. She has no clear PND or orthopnea. She had multiple admissions over the last few months for similar problems. The patient was noted to have progressive pleural effusion which she had in the past. Her medications at home included: 1. Trazodone. 2. Coumadin. 3. Potassium. 4. Singulair. 5. Furosemide 40 mg twice a day. 6. Digoxin. 7. Lipitor 40 mg daily. 8. Ventolin. Her coronary risk factors are positive for hyperlipidemia and chronic tobacco use. She is not a diabetic. REVIEW OF SYSTEMS: RESPIRATORY SYSTEM: She has a history of severe chronic obstructive lung disease with significant dyspnea on exertion. GI SYSTEM: She had prior episode of GI bleeding. SYSTEM: No dysuria or hematuria. NERVOUS SYSTEM: No history of seizure. PHYSICAL EXAMINATION: Edxvi-mhnfo-iwfr-old female. Appears older than stated age. Blood pressure 136/60 with a heart rate in the 80s. HEAD: Normocephalic. EYES: Sclerae anicteric. NECK: No bruit noted. LUNGS: Decreased air exchange bilaterally with decreased breath sounds on the right side. HEART: Irregularly irregular. S1, S2 with a systolic murmur at the apex and a diastolic murmur. ABDOMEN: Soft, non-tender. Positive bowel sounds. EXTREMITIES: No edema or ecchymosis noted bilaterally. Lab data revealed a hemoglobin of 9.1, INR of 3.6, BUN and creatinine of 15 and 0.88. Rhythm strip revealed atrial fibrillation. IMPRESSION: 1. Symptoms of progressive dyspnea, multifactorial, with an element of exacerbation of chronic obstructive pulmonary disease as well as a history of severe aortic stenosis. Patient was not felt to be a candidate of any intervention because of her overall status. 2. Chronic atrial fibrillation. 3. Chronic tobacco use. 4. Pleural effusion. 5. Hypertension. 6. Hyperlipidemia. RECOMMENDATIONS: From the cardiac standpoint, will continue present therapy, continue clinical observation. Unfortunately her prognosis is quite guarded. Will continue on the anticoagulation. Patient has been put on Lovenox. Awaiting thoracentesis. I will obtain an EKG and, depending on her progress, further recommendations will be made. Thank you for this consult. Will follow with you. ISACC
[2017-05-03 17:09] LABS: Glucose,Whole Blood 130 mg/dL (75-99)
[2017-05-03 20:27] LABS: Glucose,Whole Blood 159 mg/dL (75-99)
--- NOTE | 2017-05-03 20:43 | P.PN ---
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 Became profoundly weak. Was also having increasing amounts of pain to the right lower side of her chest. Because the she presented to the emergency center. Telemetry was some steroids and respiratory treatments and this has helped her as well as pain medications. She has less short of breath at the moment and she wasn't admission. But still is quite miserable. She sitting upright sitting forward relates this gives her some relief of the discomfort she has in her right lower chest toward the back. She is still short of breath compared to her baseline. She has no hemoptysis but does have a mild cough at times. She is not having significant sputum Production. she feels quite poorly overall. Objective - Vital Signs Vital signs: Vital Signs Temp 97.6 F 05/03/17 15:00 Pulse 80 05/03/17 20:40 Resp 16 05/03/17 15:00 BP 130/67 05/03/17 15:00 Pulse Ox 100 05/03/17 15:00 Intake & Output 05/03/17 05/03/17 05/04/17 06:59 18:59 06:59 Intake Total 1200 910 Balance 1200 910 Weight 48.308 kg 48.308 kg Intake: Intake, IV Titration 1200 850 Amount Levofloxacin 750Mg-D5w 150 Pmx 750 mg In Dextrose/ Water 1 150ml.bag @ 100 mls/hr IVPB Q24H MARY CARMEN Rx#: [id number] Piperacillin-Tazobactam 3 50 50 .375 gm In Dextrose/Water 1 50ml.bag @ 12.5 mls/hr IVPB Q8HR MARY CARMEN Rx#: [id number] Sodium Chloride 0.9% 1, 1000 800 000 ml @ 100 mls/hr IV . Q10H MARY CARMEN Rx#:[id number] Oral 60 Other: Voiding Method Bedside Commode Bedside Commode - Exam 57-year-old woman who looks much older than her stated age. She is chronically ill. HEENT: Anicteric conjunctiva are pink and moist nasal mucosa grossly intact without significant lesions, there is no thrush. Poor dentition Neck: The neck is supple without significant lymphadenopathy or thyromegaly. Lungs: Symmetrical air entry with wheezes scattered throughout the lung iqbal. Evidence of markedly diminished breath sounds to the right base. Evidence of dullness to the right base. Egophony is noted to the right base. Heart: irregular no S3 loud S4 There is no significant murmur click or rub, PMI was nondisplaced. Abdomen: Positive bowel sounds soft and nontender without palpable masses or organomegaly. There was no guarding or rebound. Extremities: The extremities have just trace edema. She has no tenderness over the joints. Skin the patient has changes of diabetes her lower extremities however she has a difficulty with chronically picking at her skin and has innumerable lesions that healed over arms and legs at this time. None of them are open are grossly draining at this time is evidence of some erythema to the coccyx. With this the Aquacel silver dressing has been applied. It has the foam border. Neuro: She is awake alert oriented to person place and time and does not exhibit any acute gross focal sensory motor deficits - Labs CBC & Chem 7: 05/03/17 07:15 05/03/17 07:15 Labs: Abnormal Lab Results - Last 24 Hours (Table) 05/02/17 05/02/17 05/03/17 Range/Units 20:21 23:05 07:01 Hgb (11.4-16.0) gm/dL Hct (34.0-46.0) % MCV (80.0-100.0) fL MCH (25.0-35.0) pg MCHC (31.0-37.0) g/dL RDW (11.5-15.5) % Neutrophils # (1.3-7.7) k/uL PT (9.0-12.0) sec Sodium (137-145) mmol/L Chloride (98-107) mmol/L Carbon Dioxide (22-30) mmol/L Glucose (74-99) mg/dL POC Glucose (mg/dL) 295 H 160 H (75-99) mg/dL Total Protein (6.3-8.2) g/dL Albumin (3.5-5.0) g/dL Urine Protein Trace H (Negative) Urine Blood Trace H (Negative) Urine RBC 7 H (0-5) /hpf Hyaline Casts 101 H (0-2) /lpf Urine Mucus Rare H (None) /hpf 05/03/17 05/03/17 05/03/17 Range/Units 07:15 07:15 07:15 Hgb 9.1 L D (11.4-16.0) gm/dL Hct 31.1 L (34.0-46.0) % MCV 68.9 L (80.0-100.0) fL MCH 20.0 L (25.0-35.0) pg MCHC 29.1 L (31.0-37.0) g/dL RDW 15.8 H (11.5-15.5) % Neutrophils # 8.4 H (1.3-7.7) k/uL PT 35.1 H (9.0-12.0) sec Sodium 135 L (137-145) mmol/L Chloride 92 L (98-107) mmol/L Carbon Dioxide 35 H (22-30) mmol/L Glucose 130 H (74-99) mg/dL POC Glucose (mg/dL) (75-99) mg/dL Total Protein 5.4 L (6.3-8.2) g/dL Albumin 2.7 L (3.5-5.0) g/dL Urine Protein (Negative) Urine Blood (Negative) Urine RBC (0-5) /hpf Hyaline Casts (0-2) /lpf Urine Mucus (None) /hpf 05/03/17 05/03/17 05/03/17 Range/Units 11:34 16:58 20:21 Hgb (11.4-16.0) gm/dL Hct (34.0-46.0) % MCV (80.0-100.0) fL MCH (25.0-35.0) pg MCHC (31.0-37.0) g/dL RDW (11.5-15.5) % Neutrophils # (1.3-7.7) k/uL PT (9.0-12.0) sec Sodium (137-145) mmol/L Chloride (98-107) mmol/L Carbon Dioxide (22-30) mmol/L Glucose (74-99) mg/dL POC Glucose (mg/dL) 164 H 130 H 159 H (75-99) mg/dL Total Protein (6.3-8.2) g/dL Albumin (3.5-5.0) g/dL Urine Protein (Negative) Urine Blood (Negative) Urine RBC (0-5) /hpf Hyaline Casts (0-2) /lpf Urine Mucus (None) /hpf Microbiology - Last 24 Hours (Table) 05/02/17 23:05 Urine Culture - Preliminary Urine,Voided 05/02/17 02:30 Blood Culture - Preliminary Blood No Growth after 24 hours Laboratory Results WBC 10.5 k/uL (3.8-10.6) 05/03/17 07:15 RBC 4.52 m/uL (3.80-5.40) 05/03/17 07:15 Hgb 9.1 gm/dL (11.4-16.0) L D 05/03/17 07:15 Hct 31.1 % (34.0-46.0) L 05/03/17 07:15 MCV 68.9 fL (80.0-100.0) L 05/03/17 07:15 MCH 20.0 pg (25.0-35.0) L 05/03/17 07:15 MCHC 29.1 g/dL (31.0-37.0) L 05/03/17 07:15 RDW 15.8 % (11.5-15.5) H 05/03/17 07:15 Plt Count 327 k/uL (150-450) 05/03/17 07:15 Neutrophils % 80 % 05/03/17 07:15 Lymphocytes % 16 % 05/03/17 07:15 Monocytes % 4 % 05/03/17 07:15 Eosinophils % 0 % 05/03/17 07:15 Basophils % 0 % 05/03/17 07:15 Neutrophils # 8.4 k/uL (1.3-7.7) H 05/03/17 07:15 Lymphocytes # 1.7 k/uL (1.0-4.8) 05/03/17 07:15 Monocytes # 0.4 k/uL (0-1.0) 05/03/17 07:15 Eosinophils # 0.0 k/uL (0-0.7) 05/03/17 07:15 Basophils # 0.0 k/uL (0-0.2) 05/03/17 07:15 Hypochromasia Marked 05/03/17 07:15 Poikilocytosis Slight 05/03/17 07:15 Microcytosis Marked 05/03/17 07:15 PT 35.1 sec (9.0-12.0) H 05/03/17 07:15 INR 3.6 (<1.1) 05/03/17 07:15 APTT 39.4 sec (22.0-30.0) H 05/02/17 02:30 D-Dimer 0.60 mg/L FEU (<0.60) H 05/02/17 02:30 Sodium 135 mmol/L (137-145) L 05/03/17 07:15 Potassium 4.3 mmol/L (3.5-5.1) 05/03/17 07:15 Chloride 92 mmol/L (98-107) L 05/03/17 07:15 Carbon Dioxide 35 mmol/L (22-30) H 05/03/17 07:15 Anion Gap 8 mmol/L 05/03/17 07:15 BUN 15 mg/dL (7-17) 05/03/17 07:15 Creatinine 0.88 mg/dL (0.52-1.04) 05/03/17 07:15 Est GFR (MDRD) Af Amer >60 (>60 ml/min/1.73 sqM) 05/03/17 07:15 Est GFR (MDRD) Non-Af >60 (>60 ml/min/1.73 sqM) 05/03/17 07:15 Glucose 130 mg/dL (74-99) H 05/03/17 07:15 POC Glucose (mg/dL) 159 mg/dL (75-99) H 05/03/17 20:21 POC Glu Cuff Maker Carol Singh 05/03/17 20:[address] Glu mg/dL 80 mg/dL 05/02/17 02:30 Hemoglobin A1c 4.4 % (4.2-6.1) 05/02/17 02:30 Calcium 8.6 mg/dL (8.4-10.2) 05/03/17 07:15 Phosphorus 4.6 mg/dL (2.5-4.5) H 05/02/17 02:30 Magnesium 1.7 mg/dL (1.6-2.3) 05/03/17 07:15 Total Bilirubin 0.7 mg/dL (0.2-1.3) 05/03/17 07:15 AST 19 U/L (14-36) 05/03/17 07:15 ALT 20 U/L (9-52) 05/03/17 07:15 Alkaline Phosphatase 56 U/L (38-126) 05/03/17 07:15 Total Creatine Kinase 90 U/L (30-135) 05/02/17 02:30 CK-MB (CK-2) 4.0 ng/mL (0.0-2.4) H* 05/02/17 02:30 CK-MB (CK-2) Rel Index 4.4 05/02/17 02:30 Troponin I 0.020 ng/mL (0.000-0.034) 05/02/17 02:30 NT-Pro-B Natriuret Pep 8080 pg/mL 05/02/17 02:30 Total Protein 5.4 g/dL (6.3-8.2) L 05/03/17 07:15 Albumin 2.7 g/dL (3.5-5.0) L 05/03/17 07:15 Urine Color Yellow 05/02/17 23:05 Urine Appearance Clear (Clear) 05/02/17 23:05 Urine pH 6.5 (5.0-8.0) 05/02/17 23:05 Ur Specific [place] 1.012 (1.001-1.035) 05/02/17 23:05 Urine Protein Trace (Negative) H 05/02/17 23:05 Urine Glucose (UA) Negative (Negative) 05/02/17 23:05 Urine Ketones Negative (Negative) 05/02/17 23:05 Urine Blood Trace (Negative) H 05/02/17 23:05 Urine Nitrite Negative (Negative) 05/02/17 23:05 Urine Bilirubin Negative (Negative) 05/02/17 23:05 Urine Urobilinogen <2.0 mg/dL (<2.0) 05/02/17 23:05 Ur Leukocyte Esterase Negative (Negative) 05/02/17 23:05 Urine RBC 7 /hpf (0-5) H 05/02/17 23:05 Urine WBC 1 /hpf (0-5) 05/02/17 23:05 Ur Squamous Epith Cells <1 /hpf (0-4) 05/02/17 23:05 Hyaline Casts 101 /lpf (0-2) H 05/02/17 23:05 Urine Mucus Rare /hpf (None) H 05/02/17 23:05 Microbiology 05/02/17 23:05 Urine,Voided Urine Culture - Preliminary 05/02/17 02:30 Blood Blood Culture - Preliminary No Growth after 24 hours Assessment and Plan (1) COPD (chronic obstructive pulmonary disease) Status: Acute (2) Afib Status: Acute (3) Pleural effusion Narrative/Plan: 57-year-old female who has advanced COPD that is oxygen and inhaled steroid dependent, but continues to smoke. Presents to Hospital feeling increasing shortness of breath. Was associated with increasing amounts of discomfort to her right lower chest especially posterior. Chest ray and ultrasound reveal evidence of an increasing effusion to that area. Potentially will have a thoracentesis. Prior cultures have been negative. No history of MRSA. Given her complex history currently be treating with piperacillin tazobactam and Levaquin until we have further data. Blood cultures are in process. Await sputum culture. Legionella and mycoplasma be tested. When the thoracentesis performed material should be sent for extensive testing that includes routine bacterial, anaerobic bacteria, fungal culture, mycobacterial culture, and viral PCR. Cytology. With current steroid therapy as well as the breathing treatments she is symptomatically improving. The patient does have a stage II area on the coccyx for which the Aquacel silver foam dressing is then applied. Advised to try to not always being is sitting up position to offload some pressure to her coccyx. Status: Acute Code(s): J90 - PLEURAL EFFUSION, NOT ELSEWHERE CLASSIFIED
--- NOTE | 2017-05-03 21:13 | PN ---
DATE OF SERVICE: 05/03/2017 This is a 57-year-old white female who has multiple chronic illnesses. She is known to have chronic obstructive pulmonary disease and has had multiple hospitalizations for acute exacerbation and pneumonia. Also she is known to have chronic atrial fibrillation with chronic congestive heart failure and very severe mitral stenosis. Patient also has diabetes mellitus, hypertensive cardiovascular disease and anemia as well as general debility. The patient was admitted this time with increasing shortness of breath and was found to have a right pleural effusion and right lung infiltrate and also congestive heart failure. The patient was admitted to the hospital for further evaluation and treatment. Patient has been started on IV antibiotics, IV Solu-Medrol, updraft treatments, and she has been also placed back on her previous home medications. She has been [facility] by [facility] in consultation and also by Dr. Hinds in consultation. The patient has a history of a decubitus ulcer in the coccygeal area. Dr. Castellon was consulted, and he has seen the patient already. Patient today is currently on IV antibiotics. Dr. Castellon will be following with regard to the pressure ulcer on the coccyx. Today patient is complaining of severe and extreme tiredness. Her hemoglobin is 9.[address] Hinds was planning to do a thoracentesis today, but her PT and INR were prolonged. Coumadin is being held and we will monitor her PT and INR. When they come down to normal, Dr. Hinds will go ahead and do the thoracentesis. Her heart is in atrial fibrillation with a controlled ventricular rate. Overall her pulmonary symptoms are getting better. The prognosis is guarded. Will continue current medications and Dr. Hinds will do the thoracentesis when PT and INR come down to within normal range. [facility]
[2017-05-03] MEDS: MONTELUKAST 10 MG TAB PO SCH (21:21)
[2017-05-03] MEDS: ATORVASTATIN 40 MG TAB PO SCH (21:23)
[2017-05-04] MEDS: HYDROcodone/APAP 10-325MG 1 EACH TAB PO PRN ×5 (01:21→17:54)
[2017-05-04] MEDS: LEVOFLOXACIN 750MG-D5W PMX 750 MG in DEXTROSE/WATER 1 150ML.BAG IVPB SCH (05:42)
[2017-05-04 07:18] LABS: Glucose,Whole Blood 143 mg/dL (75-99)
[2017-05-04] MEDS: BUDESONIDE 0.5 MG/2 ML NEBU INHALATION SCH ×2 (07:30→18:56)
[2017-05-04] MEDS: IPRATROPIUM-ALBUTEROL 3 ML NEB INHALATION SCH ×5 (07:30→20:40)
[2017-05-04 07:46] LABS: INR 3.7 (<1.1); Prothrombin Time 36.3 sec (9.0-12.0)
[2017-05-04] MEDS: SODIUM CHLORIDE 0.9% 1,000 ML IV SCH ×2 (07:49→16:22)
[2017-05-04 07:50] LABS: Basophils % (A) 0 %; CH 19.5; CHCM 28.8; Eosinophils % (A) 0 %; HCT 28.9 % (34.0-46.0); HDW 3.61; HGB 8.4 gm/dL (11.4-16.0); Hypochromasia Marked; Luc # (Auto) 0.05; Luc % (Auto) 0; Lymphocytes # (A) 1.3 k/uL (1.0-4.8); Lymphocytes % (A) 11 %; MCHC 29.3 g/dL (31.0-37.0); MCV 68.2 fL (80.0-100.0); Mean Platelet Volume 6.5; Microcytosis Marked; Monocytes # (A) 0.4 k/uL (0-1.0); Monocytes % (A) 4 %; Neutrophils # (A) 9.8 k/uL (1.3-7.7); Neutrophils % (A) 85 %; Poikilocytosis Slight; RBC 4.23 m/uL (3.80-5.40); RDW 15.6 % (11.5-15.5); WBC 11.6 k/uL (3.8-10.6); WBC (Perox) 12.07
[2017-05-04] MEDS: PIPERACILLIN-TAZOBACTAM 3.375 GM in DEXTROSE/WATER 1 50ML.BAG IVPB SCH ×3 (07:51→23:26)
[2017-05-04] MEDS: POTASSIUM CHLORIDE ER 10 MEQ TAB.ER.PRT PO SCH (08:01)
[2017-05-04] MEDS: methylPREDNISolone SOD SUCCI 40 MG/ML 1 ML VIAL IV SCH ×3 (08:01→23:29)
[2017-05-04] MEDS: guaiFENesin 600 MG TABLET.ER PO SCH ×2 (08:01→20:23)
[2017-05-04] MEDS: ENOXAPARIN 40 MG/0.4 ML SYRINGE SQ SCH ×3 (08:01→20:22)
[2017-05-04] MEDS: DOCUSATE 100 MG CAP PO SCH (08:01)
[2017-05-04] MEDS: FUROSEMIDE 40 MG TAB PO SCH ×2 (08:02→20:22)
[2017-05-04] MEDS: DIGOXIN 125 MCG TAB PO SCH (08:02)
[2017-05-04] MEDS: INSULIN LISPRO (humaLOG) 300 UNIT/3 ML VIAL SQ SCH ×4 (08:02→20:21)
[2017-05-04 08:36] LABS: ALT 19 U/L (9-52); AST 27 U/L (14-36); Alkaline Phosphatase 45 U/L (38-126); Anion Gap 9 mmol/L; Blood Urea Nitrogen 25 mg/dL (7-17); Calcium 8.7 mg/dL (8.4-10.2); Carbon Dioxide 32 mmol/L (22-30); Chloride 93 mmol/L (98-107); Glucose 122 mg/dL (74-99); Non-African American GFR(MDRD) >60 (>60 ml/min/1.73 sqM); Potassium 4.1 mmol/L (3.5-5.1); Sodium 134 mmol/L (137-145); Total Bilirubin 0.7 mg/dL (0.2-1.3); Total Protein 5.7 g/dL (6.3-8.2)
[2017-05-04 12:19] LABS: Glucose,Whole Blood 169 mg/dL (75-99)
--- NOTE | 2017-05-04 13:31 | P.PN ---
Subjective 05/02/17 This is a 57-year-old female patient being seen, examined and evaluated. Patient is well-known to our services. This Patient comes in with complaints of shortness of breath that had been increasing over the last few days. The patient does have a significant medical history for CHF, COPD that is severe, chronic persistent asthma but severe, atrial fibrillation, renal insufficiency and liver disease. This patient has a known history for reoccurring pneumonia as well. Patient states she uses 4-5 L of supplemental oxygen at home at all times. Upon examination the patient's resting up in bed on 5 L of supplemental oxygen, she states she has shortness of breath with any minimal exertion as well as extensive conversation. Chest x-ray has been reviewed and shows an increasing right pleural effusion which is associated with atelectasis, possible pulmonary artery hypertension, and congestive heart failure. 05/03/17 upon examination today the patient's resting up in bed and continues to be on 5 L of supplemental oxygen. Patient continues to have shortness of breath with any minimal exertion and extensive conversation. Patient did undergo an ultrasound of the chest yesterday which revealed a right pleural effusion fluid pocket of 10.4 cm this has increased significantly since her last ultrasound of the chest which was done 02/08/2017 which showed a right pleural effusion pocket of 4.2 at that time. During that admission in January the effusion was too small to undergo a thoracentesis. Of note ,since its progression, the patient is a candidate to have the thoracentesis performed in regards to size. However the patient was on Coumadin for chronic A. fib and her INR yesterday was 2.9. Yesterday we discontinued the Coumadin and put the patient on Lovenox in preparation for thoracentesis. A repeat INR was performed today and is currently 3.6. We would like the patient's INR to be closer to 1.4 before we perform the thoracentesis. Repeat labs will be drawn tomorrow. 05/04/17 examination today the patient's resting up in bed and continues on 5 L of supplemental oxygen. Patient states she is a little less short of breath today than previously. However she still continues to have shortness of breath with exertion. Patient's INR today was 3.7, which is still too high to undergo a thoracentesis. Labs have been reviewed. We truly the increase in INR due to the patient being on Levaquin as a side effect. Objective - Vital Signs Vital signs: Vital Signs Temp 98.5 F 05/04/17 07:00 Pulse 73 05/04/17 08:00 Resp 16 05/04/17 08:00 BP 119/72 05/04/17 07:00 Pulse Ox 100 05/04/17 07:00 Intake & Output 05/03/17 05/04/17 05/04/17 18:59 06:59 18:59 Intake Total 910 Balance 910 Weight 48.308 kg 49.442 kg 49.442 kg Intake: Intake, IV Titration 850 Amount Piperacillin-Tazobactam 3 50 .375 gm In Dextrose/Water 1 50ml.bag @ 12.5 mls/hr IVPB Q8HR MARY CARMEN Rx#: [id number] Sodium Chloride 0.9% 1, 800 000 ml @ 100 mls/hr IV . Q10H MARY CARMEN Rx#:[id number] Oral 60 Other: Voiding Method Bedside Commode Bedside Commode Bedside Commode # Voids 1 1 - Exam GENERAL EXAM: Alert, cachectic, comfortable in no apparent distress. HEAD: Normocephalic. EYES: Normal reaction of pupils, equal size. NOSE: Clear with pink turbinates. THROAT: No erythema or exudates. NECK: No masses, no JVD. CHEST: No chest wall deformity. LUNGS: Poor air entry is present, scattered rhonchi as well as expiratory wheezes noted throughout. Decreased breath sounds on the right base. Positive for dullness with percussion the right side as well. CVS: S1 and S2 normal with no audible mumurs, regular rhythm. ABDOMEN: No hepatosplenomegaly, normal bowel sounds, no guarding or rigidity. EXTREMITIES: Trace edema noted, pedal pulses palpable. SKIN: No rashes, dressing in place to coccyx wound CENTRAL NERVOUS SYSTEM: No focal deficits, tone is normal in all 4 extremities. - Labs CBC & Chem 7: 05/04/17 07:25 05/04/17 07:25 Labs: Abnormal Lab Results - Last 24 Hours (Table) 05/03/17 05/03/17 05/03/17 Range/Units 11:34 16:58 20:21 WBC (3.8-10.6) k/uL Hgb (11.4-16.0) gm/dL Hct (34.0-46.0) % MCV (80.0-100.0) fL MCH (25.0-35.0) pg MCHC (31.0-37.0) g/dL RDW (11.5-15.5) % Neutrophils # (1.3-7.7) k/uL PT (9.0-12.0) sec Sodium (137-145) mmol/L Chloride (98-107) mmol/L Carbon Dioxide (22-30) mmol/L BUN (7-17) mg/dL Glucose (74-99) mg/dL POC Glucose (mg/dL) 164 H 130 H 159 H (75-99) mg/dL Total Protein (6.3-8.2) g/dL Albumin (3.5-5.0) g/dL 05/04/17 05/04/17 05/04/17 Range/Units 07:16 07:25 07:25 WBC 11.6 H (3.8-10.6) k/uL Hgb 8.4 L (11.4-16.0) gm/dL Hct 28.9 L (34.0-46.0) % MCV 68.2 L (80.0-100.0) fL MCH 20.0 L (25.0-35.0) pg MCHC 29.3 L (31.0-37.0) g/dL RDW 15.6 H (11.5-15.5) % Neutrophils # 9.8 H (1.3-7.7) k/uL PT (9.0-12.0) sec Sodium 134 L (137-145) mmol/L Chloride 93 L (98-107) mmol/L Carbon Dioxide 32 H (22-30) mmol/L BUN 25 H (7-17) mg/dL Glucose 122 H (74-99) mg/dL POC Glucose (mg/dL) 143 H (75-99) mg/dL Total Protein 5.7 L (6.3-8.2) g/dL Albumin 3.0 L (3.5-5.0) g/dL 05/04/17 Range/Units 07:25 WBC (3.8-10.6) k/uL Hgb (11.4-16.0) gm/dL Hct (34.0-46.0) % MCV (80.0-100.0) fL MCH (25.0-35.0) pg MCHC (31.0-37.0) g/dL RDW (11.5-15.5) % Neutrophils # (1.3-7.7) k/uL PT 36.3 H (9.0-12.0) sec Sodium (137-145) mmol/L Chloride (98-107) mmol/L Carbon Dioxide (22-30) mmol/L BUN (7-17) mg/dL Glucose (74-99) mg/dL POC Glucose (mg/dL) (75-99) mg/dL Total Protein (6.3-8.2) g/dL Albumin (3.5-5.0) g/dL Microbiology - Last 24 Hours (Table) 05/02/17 02:30 Blood Culture - Preliminary Blood No Growth after 48 hours 05/02/17 23:05 Urine Culture - Preliminary Urine,Voided Assessment and Plan Plan: Assessment Right-sided pleural effusion with right sided pneumonia suspect mixed/gram- negative in nature Acute exacerbation of chronic obstructive pulmonary disease Acute on chronic hypoxic respiratory failure Congestive heart failure Probable pulmonary hypertension Atrial fibrillation Chronic anemia Severe protein calorie malnutrition Plan Medications have been reviewed and will be continued as ordered. We will give the patient Vitamin K 10mg daily, until INR comes down. Continue with Solu- Medrol and budesonide as well as Mucinex. Ultrasound of the chest reveals a 10.1 cm right pleural effusion fluid pocket, patient will need to go under a thoracentesis procedure when her INR is closer to 1.4. When we obtain the thoracentesis fluid will be sent to lab for testing. Repeat labs in the morning. Cardiology on consult for probable pulmonary hypertension and CHF. Infectious disease on consult. Continue with pulmonary hygiene, coughing and deep breathing exercises, and supportive care. Supplemental oxygen to maintain oxygen saturations of 92% or better. Continue nebulizer treatments. GI and DVT prophylaxis. We will add ensure 3 times a day with meals. Blood, urine is pending. Patient has been unable to give a sputum sample. We will continue to monitor labs/results and adjust treatment as necessary. Further recommendations pending. I performed an examination of the patient and discussed their management with the nurse practitioner. I have reviewed the nurse practitioner's note and agree with the documented findings and plan of care.
[2017-05-04] MEDS: HYDROmorphone 1 MG/ML 1 ML SYRINGE IVP PRN ×2 (13:44→21:50)
[2017-05-04] MEDS: PHYTONADIONE ORAL 5 MG/5 ML ORAL.SYRG PO SCH (14:07)
[2017-05-04 17:08] LABS: Glucose,Whole Blood 148 mg/dL (75-99)
[2017-05-04 20:14] LABS: Glucose,Whole Blood 196 mg/dL (75-99)
[2017-05-04] MEDS: ATORVASTATIN 40 MG TAB PO SCH (20:21)
[2017-05-04] MEDS: MONTELUKAST 10 MG TAB PO SCH (20:21)
[2017-05-04] MEDS: traZODone HCL 50 MG TAB PO SCH (20:23)
[2017-05-04] MEDS: CYCLOBENZAPRINE 10 MG TAB PO PRN (20:25)
--- NOTE | 2017-05-04 21:47 | P.PN ---
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 Became profoundly weak. Was also having increasing amounts of pain to the right lower side of her chest. Because the she presented to the emergency center. Telemetry was some steroids and respiratory treatments and this has helped her as well as pain medications. She has less short of breath at the moment and she wasn't admission. But still is quite miserable. She sitting upright sitting forward relates this gives her some relief of the discomfort she has in her right lower chest toward the back. She is still short of breath compared to her baseline. She has no hemoptysis but does have a mild cough at times. She is not having significant sputum Production. she feels quite poorly overall. INR was still elevated a weight thoracentesis. Objective - Vital Signs Vital signs: Vital Signs Temp 98.1 F 05/04/17 15:00 Pulse 78 05/04/17 20:49 Resp 16 05/04/17 16:00 BP 146/73 05/04/17 15:00 Pulse Ox 99 05/04/17 18:56 Intake & Output 05/04/17 05/04/17 05/05/17 06:59 18:59 06:59 Intake Total 1190 Balance 1190 Weight 49.442 kg 49.442 kg Intake: Intake, IV Titration 950 Amount Levofloxacin 750Mg-D5w 150 Pmx 750 mg In Dextrose/ Water 1 150ml.bag @ 100 mls/hr IVPB Q24H MARY CARMEN Rx#: [id number] Piperacillin-Tazobactam 3 50 .375 gm In Dextrose/Water 1 50ml.bag @ 12.5 mls/hr IVPB Q8HR MARY CARMEN Rx#: [id number] Sodium Chloride 0.9% 1, 750 000 ml @ 100 mls/hr IV . Q10H MARY CARMEN Rx#:[id number] Oral 240 Other: Voiding Method Bedside Commode Bedside Commode # Voids 1 6 - Exam 57-year-old woman who looks much older than her stated age. She is chronically ill. HEENT: Anicteric conjunctiva are pink and moist nasal mucosa grossly intact without significant lesions, there is no thrush. Poor dentition Neck: The neck is supple without significant lymphadenopathy or thyromegaly. Lungs: Symmetrical air entry with wheezes scattered throughout the lung iqbal. Evidence of markedly diminished breath sounds to the right base. Evidence of dullness to the right base. Egophony is noted to the right base. Heart: irregular no S3 loud S4 There is no significant murmur click or rub, PMI was nondisplaced. Abdomen: Positive bowel sounds soft and nontender without palpable masses or organomegaly. There was no guarding or rebound. Extremities: The extremities have just trace edema. She has no tenderness over the joints. Skin the patient has changes of diabetes her lower extremities however she has a difficulty with chronically picking at her skin and has innumerable lesions that healed over arms and legs at this time. None of them are open are grossly draining at this time is evidence of some erythema to the coccyx. With this the Aquacel silver dressing has been applied. It has the foam border. Neuro: She is awake alert oriented to person place and time and does not exhibit any acute gross focal sensory motor deficits - Labs CBC & Chem 7: 05/04/17 07:25 05/04/17 07:25 Labs: Abnormal Lab Results - Last 24 Hours (Table) 05/04/17 05/04/17 05/04/17 Range/Units 07:16 07:25 07:25 WBC 11.6 H (3.8-10.6) k/uL Hgb 8.4 L (11.4-16.0) gm/dL Hct 28.9 L (34.0-46.0) % MCV 68.2 L (80.0-100.0) fL MCH 20.0 L (25.0-35.0) pg MCHC 29.3 L (31.0-37.0) g/dL RDW 15.6 H (11.5-15.5) % Neutrophils # 9.8 H (1.3-7.7) k/uL PT (9.0-12.0) sec Sodium 134 L (137-145) mmol/L Chloride 93 L (98-107) mmol/L Carbon Dioxide 32 H (22-30) mmol/L BUN 25 H (7-17) mg/dL Glucose 122 H (74-99) mg/dL POC Glucose (mg/dL) 143 H (75-99) mg/dL Total Protein 5.7 L (6.3-8.2) g/dL Albumin 3.0 L (3.5-5.0) g/dL 05/04/17 05/04/17 05/04/17 Range/Units 07:25 12:15 17:06 WBC (3.8-10.6) k/uL Hgb (11.4-16.0) gm/dL Hct (34.0-46.0) % MCV (80.0-100.0) fL MCH (25.0-35.0) pg MCHC (31.0-37.0) g/dL RDW (11.5-15.5) % Neutrophils # (1.3-7.7) k/uL PT 36.3 H (9.0-12.0) sec Sodium (137-145) mmol/L Chloride (98-107) mmol/L Carbon Dioxide (22-30) mmol/L BUN (7-17) mg/dL Glucose (74-99) mg/dL POC Glucose (mg/dL) 169 H 148 H (75-99) mg/dL Total Protein (6.3-8.2) g/dL Albumin (3.5-5.0) g/dL 05/04/17 Range/Units 20:10 WBC (3.8-10.6) k/uL Hgb (11.4-16.0) gm/dL Hct (34.0-46.0) % MCV (80.0-100.0) fL MCH (25.0-35.0) pg MCHC (31.0-37.0) g/dL RDW (11.5-15.5) % Neutrophils # (1.3-7.7) k/uL PT (9.0-12.0) sec Sodium (137-145) mmol/L Chloride (98-107) mmol/L Carbon Dioxide (22-30) mmol/L BUN (7-17) mg/dL Glucose (74-99) mg/dL POC Glucose (mg/dL) 196 H (75-99) mg/dL Total Protein (6.3-8.2) g/dL Albumin (3.5-5.0) g/dL Microbiology - Last 24 Hours (Table) 05/02/17 23:05 Urine Culture - Final Urine,Voided 07/10/17 02:30 Blood Culture - Preliminary Blood No Growth after 48 hours Laboratory Results WBC 11.6 k/uL (3.8-10.6) H 05/04/17 07:25 RBC 4.23 m/uL (3.80-5.40) 05/04/17 07:25 Hgb 8.4 gm/dL (11.4-16.0) L 05/04/17 07:25 Hct 28.9 % (34.0-46.0) L 05/04/17 07:25 MCV 68.2 fL (80.0-100.0) L 05/04/17 07:25 MCH 20.0 pg (25.0-35.0) L 05/04/17 07:25 MCHC 29.3 g/dL (31.0-37.0) L 05/04/17 07:25 RDW 15.6 % (11.5-15.5) H 05/04/17 07:25 Plt Count 260 k/uL (150-450) 05/04/17 07:25 Neutrophils % 85 % 05/04/17 07:25 Lymphocytes % 11 % 05/04/17 07:25 Monocytes % 4 % 05/04/17 07:25 Eosinophils % 0 % 05/04/17 07:25 Basophils % 0 % 05/04/17 07:25 Neutrophils # 9.8 k/uL (1.3-7.7) H 05/04/17 07:25 Lymphocytes # 1.3 k/uL (1.0-4.8) 05/04/17 07:25 Monocytes # 0.4 k/uL (0-1.0) 05/04/17 07:25 Eosinophils # 0.0 k/uL (0-0.7) 05/04/17 07:25 Basophils # 0.0 k/uL (0-0.2) 05/04/17 07:25 Hypochromasia Marked 05/04/17 07:25 Poikilocytosis Slight 05/04/17 07:25 Microcytosis Marked 05/04/17 07:25 PT 36.3 sec (9.0-12.0) H 05/04/17 07:25 INR 3.7 (<1.1) 05/04/17 07:25 APTT 39.4 sec (22.0-30.0) H 05/02/17 02:30 D-Dimer 0.60 mg/L FEU (<0.60) H 05/02/17 02:30 Sodium 134 mmol/L (137-145) L 05/04/17 07:25 Potassium 4.1 mmol/L (3.5-5.1) 05/04/17 07:25 Chloride 93 mmol/L (98-107) L 05/04/17 07:25 Carbon Dioxide 32 mmol/L (22-30) H 05/04/17 07:25 Anion Gap 9 mmol/L 05/04/17 07:25 BUN 25 mg/dL (7-17) H 05/04/17 07:25 Creatinine 0.81 mg/dL (0.52-1.04) 05/04/17 07:25 Est GFR (MDRD) Af Amer >60 (>60 ml/min/1.73 sqM) 05/04/17 07:25 Est GFR (MDRD) Non-Af >60 (>60 ml/min/1.73 sqM) 05/04/17 07:25 Glucose 122 mg/dL (74-99) H 05/04/17 07:25 POC Glucose (mg/dL) 196 mg/dL (75-99) H 05/04/17 20:10 POC Glu Authorization Representative PAULETTE Kathy Rosa 05/04/17 20:[address] Glu mg/dL 80 mg/dL 05/02/17 02:30 Hemoglobin A1c 4.4 % (4.2-6.1) 05/02/17 02:30 Calcium 8.7 mg/dL (8.4-10.2) 05/04/17 07:25 Phosphorus 4.6 mg/dL (2.5-4.5) H 05/02/17 02:30 Magnesium 1.7 mg/dL (1.6-2.3) 05/03/17 07:15 Total Bilirubin 0.7 mg/dL (0.2-1.3) 05/04/17 07:25 AST 27 U/L (14-36) 05/04/17 07:25 ALT 19 U/L (9-52) 05/04/17 07:25 Alkaline Phosphatase 45 U/L (38-126) 05/04/17 07:25 Total Creatine Kinase 90 U/L (30-135) 05/02/17 02:30 CK-MB (CK-2) 4.0 ng/mL (0.0-2.4) H* 05/02/17 02:30 CK-MB (CK-2) Rel Index 4.4 05/02/17 02:30 Troponin I 0.020 ng/mL (0.000-0.034) 05/02/17 02:30 NT-Pro-B Natriuret Pep 8080 pg/mL 05/02/17 02:30 Total Protein 5.7 g/dL (6.3-8.2) L 05/04/17 07:25 Albumin 3.0 g/dL (3.5-5.0) L 05/04/17 07:25 Urine Color Yellow 05/02/17 23:05 Urine Appearance Clear (Clear) 05/02/17 23:05 Urine pH 6.5 (5.0-8.0) 05/02/17 23:05 Ur Specific [place] 1.012 (1.001-1.035) 05/02/17 23:05 Urine Protein Trace (Negative) H 05/02/17 23:05 Urine Glucose (UA) Negative (Negative) 05/02/17 23:05 Urine Ketones Negative (Negative) 05/02/17 23:05 Urine Blood Trace (Negative) H 05/02/17 23:05 Urine Nitrite Negative (Negative) 05/02/17 23:05 Urine Bilirubin Negative (Negative) 05/02/17 23:05 Urine Urobilinogen <2.0 mg/dL (<2.0) 05/02/17 23:05 Ur Leukocyte Esterase Negative (Negative) 05/02/17 23:05 Urine RBC 7 /hpf (0-5) H 05/02/17 23:05 Urine WBC 1 /hpf (0-5) 05/02/17 23:05 Ur Squamous Epith Cells <1 /hpf (0-4) 05/02/17 23:05 Hyaline Casts 101 /lpf (0-2) H 05/02/17 23:05 Urine Mucus Rare /hpf (None) H 05/02/17 23:05 Urine Legionella Ag Not detected (Not detected) 05/02/17 23:05 Microbiology 05/02/17 23:05 Urine,Voided Urine Culture - Final 05/02/17 02:30 Blood Blood Culture - Preliminary No Growth after 48 hours Assessment and Plan (1) COPD (chronic obstructive pulmonary disease) Status: Acute (2) Afib Status: Acute (3) Pleural effusion Narrative/Plan: 57-year-old female who has advanced COPD that is oxygen and inhaled steroid dependent, but continues to smoke. Presents to Hospital feeling increasing shortness of breath. Was associated with increasing amounts of discomfort to her right lower chest especially posterior. Chest ray and ultrasound reveal evidence of an increasing effusion to that area. Potentially will have a thoracentesis. Prior cultures have been negative. No history of MRSA. Given her complex history currently be treating with piperacillin tazobactam and Levaquin until we have further data. Blood cultures are negative so far. Sputum cultures negative so far. Legionella has come back as negative When the thoracentesis performed material should be sent for extensive testing that includes routine bacterial, anaerobic bacteria, fungal culture, mycobacterial culture, and viral PCR. Cytology. With current steroid therapy as well as the breathing treatments she is symptomatically improving. The patient does have a stage II area on the coccyx for which the Aquacel silver foam dressing is then applied. Advised to try to not always being is sitting up position to offload some pressure to her coccyx. Status: Acute Code(s): J90 - PLEURAL EFFUSION, NOT ELSEWHERE CLASSIFIED
--- NOTE | 2017-05-04 22:51 | PN ---
Mrs. Loya is a 57-year-old female with a history of atrial fibrillation, history of mitral stenosis, history of chronic obstructive lung disease, who presented with symptoms of progressive dyspnea. She continues to be dyspneic. She has significant pleural effusion and she is scheduled to undergo thoracentesis. She continues to be dyspneic with some cough; otherwise minimal improvement. She denies any chest pain. No dizziness. She continues to be on: 1. Lipitor 40 mg daily. 2. Digoxin 125 mcg daily. 3. Lovenox subcutaneously. 4. Lasix 40 mg twice a day. 5. Ipratropium. 6. Singulair. 7. Potassium. 8. Trazodone. PHYSICAL EXAMINATION: Blood pressure 119/70 with a heart rate in the 80s. LUNGS: Decreased air exchange with decreased breath sounds at the right base and dullness. HEART: Irregularly irregular. S1, S2 with a systolic murmur and diastolic murmur at the apex. ABDOMEN: Soft, non-tender. EXTREMITIES: No edema. LAB DATA: BUN and creatinine of 25 and 0.81. Potassium 4.1. INR 3.7. Hemoglobin 8.4. IMPRESSION: 1. Progressive dyspnea with a combination of congestive heart failure related to the mitral stenosis as well as exacerbation of chronic obstructive pulmonary disease and pleural effusion. 2. History of mitral stenosis with rheumatic valve disease and prior valvuloplasty. Patient is not felt to be a candidate for any surgical intervention because of her overall status. 3. Chronic atrial fibrillation. 4. Chronic tobacco use. 5. Anemia. RECOMMENDATIONS: From the cardiac standpoint, will continue conservative treatment. Patient will undergo thoracentesis once her INR is down. From the cardiac standpoint, will continue the present therapy. Unfortunately the prognosis is guarded. MTDD
--- NOTE | 2017-05-05 00:02 | PN ---
DATE OF SERVICE: 05/04/2017 This 57-year-old white female was admitted with increasing shortness of breath, general weakness, and she was found to have a pleural effusion, pulmonary infiltrate and also she was known to have chronic obstructive pulmonary disease. She is also known to have chronic atrial fibrillation and congestive heart failure. She was admitted to the hospital for further evaluation and treatment. She was started on IV antibiotics, updraft treatments and IV Solu- Medrol. She was seen by Dr. Segun Hinds in consultation. She has also been seen by [facility]. The patient has advanced severe mitral stenosis and atrial fibrillation and congestive heart failure. Patient was aggressively treated for congestive heart failure with Lasix and patient was also placed back on her home medications. Patient has significant pleural effusion and Dr. Hinds was planning to do thoracentesis, but his has been deferred because of her prolonged PT and INR. Coumadin is being held. Patient is also complaining of severe pain, not controlled with the current medications. Currently she is on [place] q.4 hours p.r.n., but this will be changed to Dilaudid q.8 hours alternating with [place] q.8 hours. Vital signs are otherwise stable. Overall prognosis guarded. Will continue current medications. MTDD
[2017-05-05] MEDS: HYDROcodone/APAP 10-325MG 1 EACH TAB PO PRN ×3 (02:00→17:31)
[2017-05-05] MEDS: SODIUM CHLORIDE 0.9% 1,000 ML IV SCH ×2 (05:17→12:34)
[2017-05-05] MEDS: LEVOFLOXACIN 750MG-D5W PMX 750 MG in DEXTROSE/WATER 1 150ML.BAG IVPB SCH (05:17)
[2017-05-05 05:23] LABS: Mycoplasma IgM Antibody 0.46 INDEX (<=0.90)
[2017-05-05] MEDS: HYDROmorphone 1 MG/ML 1 ML SYRINGE IVP PRN ×3 (05:58→22:33)
[2017-05-05] MEDS: IPRATROPIUM-ALBUTEROL 3 ML NEB INHALATION SCH ×4 (06:55→20:37)
[2017-05-05] MEDS: BUDESONIDE 0.5 MG/2 ML NEBU INHALATION SCH ×2 (06:55→20:37)
[2017-05-05] MEDS: CYCLOBENZAPRINE 10 MG TAB PO PRN ×2 (07:25→16:43)
[2017-05-05 07:28] LABS: Glucose,Whole Blood 138 mg/dL (75-99)
[2017-05-05] MEDS: INSULIN LISPRO (humaLOG) 300 UNIT/3 ML VIAL SQ SCH ×4 (07:31→20:59)
[2017-05-05] MEDS: methylPREDNISolone SOD SUCCI 40 MG/ML 1 ML VIAL IV SCH ×2 (07:33→17:32)
[2017-05-05] MEDS: DOCUSATE 100 MG CAP PO SCH (07:35)
[2017-05-05] MEDS: DIGOXIN 125 MCG TAB PO SCH (07:35)
[2017-05-05] MEDS: guaiFENesin 600 MG TABLET.ER PO SCH ×2 (07:36→20:58)
[2017-05-05] MEDS: ENOXAPARIN 40 MG/0.4 ML SYRINGE SQ SCH ×2 (07:36→20:58)
[2017-05-05] MEDS: FUROSEMIDE 40 MG TAB PO SCH ×2 (07:36→20:58)
[2017-05-05] MEDS: POTASSIUM CHLORIDE ER 10 MEQ TAB.ER.PRT PO SCH (07:37)
[2017-05-05] MEDS: PIPERACILLIN-TAZOBACTAM 3.375 GM in DEXTROSE/WATER 1 50ML.BAG IVPB SCH ×2 (07:42→17:31)
[2017-05-05] MEDS: PHYTONADIONE ORAL 5 MG/5 ML ORAL.SYRG PO SCH (08:06)
[2017-05-05 08:10] LABS: Basophils % (A) 0 %; CH 19.3; CHCM 28.2; Eosinophils % (A) 0 %; HCT 28.8 % (34.0-46.0); HGB 8.4 gm/dL (11.4-16.0); Hypochromasia Marked; Luc # (Auto) 0.07; Luc % (Auto) 1; Lymphocytes % (A) 10 %; MCH 20.1 pg (25.0-35.0); MCHC 29.3 g/dL (31.0-37.0); MCV 68.7 fL (80.0-100.0); Mean Platelet Volume 7.7; Microcytosis Marked; Monocytes # (A) 0.4 k/uL (0-1.0); Monocytes % (A) 5 %; Neutrophils # (A) 8.1 k/uL (1.3-7.7); Neutrophils % (A) 84 %; Poikilocytosis Slight; RBC 4.19 m/uL (3.80-5.40); RDW 15.7 % (11.5-15.5); WBC 9.6 k/uL (3.8-10.6); WBC (Perox) 10.08
[2017-05-05 08:12] LABS: INR 1.3 (<1.1); Prothrombin Time 13.3 sec (9.0-12.0)
[2017-05-05 08:23] LABS: ALT 19 U/L (9-52); AST 21 U/L (14-36); Alkaline Phosphatase 52 U/L (38-126); Anion Gap 8 mmol/L; Blood Urea Nitrogen 24 mg/dL (7-17); Calcium 8.7 mg/dL (8.4-10.2); Carbon Dioxide 34 mmol/L (22-30); Chloride 94 mmol/L (98-107); Glucose 113 mg/dL (74-99); Non-African American GFR(MDRD) >60 (>60 ml/min/1.73 sqM); Potassium 3.8 mmol/L (3.5-5.1); Sodium 136 mmol/L (137-145); Total Bilirubin 0.7 mg/dL (0.2-1.3)
[2017-05-05 11:58] LABS: Glucose,Whole Blood 229 mg/dL (75-99)
--- NOTE | 2017-05-05 14:53 | PN ---
Mrs. Loya is a 57-year-old female with known history of chronic obstructive lung disease, history of atrial fibrillation, history of mitral stenosis who has been complaining of progressive dyspnea. She is feeling slightly better today. She has not underwent thoracentesis yet because of her INR level. She continues to have cough, no chest pain, no dizziness. She continues to be on Lipitor 40 mg daily, digoxin 0.25 mg daily, Lovenox subQ , furosemide 40 mg twice a day, insulin, levofloxacin, methylprednisolone, and trazodone. PHYSICAL EXAMINATION: Blood pressure 150/80 with a heart rate in the 70s. Lungs with decreased breath sounds at the right base. Heart irregularly, irregular, S1, S2, no S3 with a diastolic murmur at the apex. Abdomen soft, nontender. Extremities no edema. Lab data with an INR of 1.3, BUN and creatinine 24 and 0.79, hemoglobin of 8.4. IMPRESSION: 1. Progressive dyspnea on insertion, multifactorial with exacerbation of chronic obstructive pulmonary disease and evidence of heart failure, related to mitral stenosis. 2. Mitral stenosis with rheumatic valve disease. 3. Chronic atrial fibrillation. 4. Chronic obstructive lung disease. 5. Anemia. RECOMMENDATION: The patient will undergo a thoracentesis soon. I an hopeful that it will help her symptoms, and depending on that, further recommendation will be made. ISACC
--- NOTE | 2017-05-05 14:54 | PN ---
This 57 year old white female who was admitted with severe shortness of breath, general weakness and she is known to have longstanding history of chronic obstructive pulmonary disease, congestive heart failure and renal failure and general weakness and the patient has a history of very severe mitral stenosis and has had mitral valvuloplasty a year ago and recently she was having severe congestive heart failure. The patient was evaluated in the emergency room and admitted to the hospital for further evaluation and treatment. The patient had been started back on her previous home medications and also she was started on IV antibiotics and IV Solu-Medrol updraft treatments. She was seen by Dr. Hinds in consultation for her pulmonary problems and she was also seen by [facility]. They were following the patient. The patient was found to have pleural effusion and pulmonary infiltrates and Dr. Hinds scheduled her for thoracentesis. Her PT and INR has been markedly prolong because she is on Coumadin for chronic atrial fibrillation. The Coumadin was discontinued and PT/INR has ( ) and today she seems to be within normal limits and Dr. Hinds is planing to do thoracentesis today. The patient also has had chronic low back pain and she has been on [place]. Her vital signs are otherwise stable. She is extremely weak and apparently needs help from getting up from bed and not able to walk by herself. Her hemoglobin she is also known to have anemia and she has received blood transfusion on this admission but her hemoglobin is rapidly coming down. Today it is 8.4. We will monitor the hemoglobin and hematocrit. Overall prognosis is guarded. The diagnostic, prognostic and therapeutic plans were discussed in detail with the patient today. ISACC
--- NOTE | 2017-05-05 16:30 | P.PN ---
Subjective 05/02/17 This is a 57-year-old female patient being seen, examined and evaluated. Patient is well-known to our services. This Patient comes in with complaints of shortness of breath that had been increasing over the last few days. The patient does have a significant medical history for CHF, COPD that is severe, chronic persistent asthma but severe, atrial fibrillation, renal insufficiency and liver disease. This patient has a known history for reoccurring pneumonia as well. Patient states she uses 4-5 L of supplemental oxygen at home at all times. Upon examination the patient's resting up in bed on 5 L of supplemental oxygen, she states she has shortness of breath with any minimal exertion as well as extensive conversation. Chest x-ray has been reviewed and shows an increasing right pleural effusion which is associated with atelectasis, possible pulmonary artery hypertension, and congestive heart failure. 05/03/17 upon examination today the patient's resting up in bed and continues to be on 5 L of supplemental oxygen. Patient continues to have shortness of breath with any minimal exertion and extensive conversation. Patient did undergo an ultrasound of the chest yesterday which revealed a right pleural effusion fluid pocket of 10.4 cm this has increased significantly since her last ultrasound of the chest which was done 02/08/2017 which showed a right pleural effusion pocket of 4.2 at that time. During that admission in January the effusion was too small to undergo a thoracentesis. Of note ,since its progression, the patient is a candidate to have the thoracentesis performed in regards to size. However the patient was on Coumadin for chronic A. fib and her INR yesterday was 2.9. Yesterday we discontinued the Coumadin and put the patient on Lovenox in preparation for thoracentesis. A repeat INR was performed today and is currently 3.6. We would like the patient's INR to be closer to 1.4 before we perform the thoracentesis. Repeat labs will be drawn tomorrow. 05/04/17 examination today the patient's resting up in bed and continues on 5 L of supplemental oxygen. Patient states she is a little less short of breath today than previously. However she still continues to have shortness of breath with exertion. Patient's INR today was 3.7, which is still too high to undergo a thoracentesis. Labs have been reviewed. We truly the increase in INR due to the patient being on Levaquin as a side effect. 05/05/17- upon examination today the patient is resting up in bed and continues on the 5 L of supplemental oxygen. The patient's INR today is 1.3 therefore we can go forth with the thoracentesis. The procedure as well as the risk and benefits have been discussed at length with the patient QUESTIONS have been answered. After the thoracentesis is completed the fluid will be sent for lab workup. The patient will be able to start back on her Coumadin tonight. The patient should continue with Lovenox until her INR is more than 1.8. Patient continues to have shortness of breath with exertion. Objective - Vital Signs Vital signs: Vital Signs Temp 97.6 F 05/05/17 07:00 Pulse 74 05/05/17 11:15 Resp 18 05/05/17 08:00 BP 151/83 05/05/17 07:00 Pulse Ox 100 05/05/17 07:00 Intake & Output 05/04/17 05/05/17 05/05/17 18:59 06:59 18:59 Intake Total 1190 480 Balance 1190 480 Weight 49.442 kg 48.5 kg 48.5 kg Intake: Intake, IV Titration 950 Amount Levofloxacin 750Mg-D5w 150 Pmx 750 mg In Dextrose/ Water 1 150ml.bag @ 100 mls/hr IVPB Q24H MARY CARMEN Rx#: [id number] Piperacillin-Tazobactam 3 50 .375 gm In Dextrose/Water 1 50ml.bag @ 12.5 mls/hr IVPB Q8HR MARY CARMEN Rx#: [id number] Sodium Chloride 0.9% 1, 750 000 ml @ 100 mls/hr IV . Q10H MARY CARMEN Rx#:[id number] Oral 240 480 Other: Voiding Method Bedside Commode Bedside Commode Bedside Commode # Voids 6 1 1 # Bowel Movements 2 2 - Exam GENERAL EXAM: Alert, cachectic, comfortable in no apparent distress. HEAD: Normocephalic. EYES: Normal reaction of pupils, equal size. NOSE: Clear with pink turbinates. THROAT: No erythema or exudates. NECK: No masses, no JVD. CHEST: No chest wall deformity. LUNGS: Poor air entry is present, scattered rhonchi as well as expiratory wheezes noted throughout. Decreased breath sounds on the right base. Positive for dullness with percussion the right side as well. CVS: S1 and S2 normal with no audible mumurs, regular rhythm. ABDOMEN: No hepatosplenomegaly, normal bowel sounds, no guarding or rigidity. EXTREMITIES: Trace edema noted, pedal pulses palpable. SKIN: No rashes, dressing in place to coccyx wound CENTRAL NERVOUS SYSTEM: No focal deficits, tone is normal in all 4 extremities. - Labs CBC & Chem 7: 05/05/17 07:38 05/05/17 07:38 Labs: Abnormal Lab Results - Last 24 Hours (Table) 05/04/17 05/04/17 05/05/17 Range/Units 17:06 20:10 07:27 Hgb (11.4-16.0) gm/dL Hct (34.0-46.0) % MCV (80.0-100.0) fL MCH (25.0-35.0) pg MCHC (31.0-37.0) g/dL RDW (11.5-15.5) % Neutrophils # (1.3-7.7) k/uL PT (9.0-12.0) sec Sodium (137-145) mmol/L Chloride (98-107) mmol/L Carbon Dioxide (22-30) mmol/L BUN (7-17) mg/dL Glucose (74-99) mg/dL POC Glucose (mg/dL) 148 H 196 H 138 H (75-99) mg/dL Total Protein (6.3-8.2) g/dL Albumin (3.5-5.0) g/dL 05/05/17 05/05/17 05/05/17 Range/Units 07:38 07:38 07:38 Hgb 8.4 L (11.4-16.0) gm/dL Hct 28.8 L (34.0-46.0) % MCV 68.7 L (80.0-100.0) fL MCH 20.1 L (25.0-35.0) pg MCHC 29.3 L (31.0-37.0) g/dL RDW 15.7 H (11.5-15.5) % Neutrophils # 8.1 H (1.3-7.7) k/uL PT 13.3 H (9.0-12.0) sec Sodium 136 L (137-145) mmol/L Chloride 94 L (98-107) mmol/L Carbon Dioxide 34 H (22-30) mmol/L BUN 24 H (7-17) mg/dL Glucose 113 H (74-99) mg/dL POC Glucose (mg/dL) (75-99) mg/dL Total Protein 6.0 L (6.3-8.2) g/dL Albumin 3.2 L (3.5-5.0) g/dL 05/05/17 Range/Units 11:54 Hgb (11.4-16.0) gm/dL Hct (34.0-46.0) % MCV (80.0-100.0) fL MCH (25.0-35.0) pg MCHC (31.0-37.0) g/dL RDW (11.5-15.5) % Neutrophils # (1.3-7.7) k/uL PT (9.0-12.0) sec Sodium (137-145) mmol/L Chloride (98-107) mmol/L Carbon Dioxide (22-30) mmol/L BUN (7-17) mg/dL Glucose (74-99) mg/dL POC Glucose (mg/dL) 229 H (75-99) mg/dL Total Protein (6.3-8.2) g/dL Albumin (3.5-5.0) g/dL Microbiology - Last 24 Hours (Table) 05/02/17 02:30 Blood Culture - Preliminary Blood No Growth after 72 hours 05/02/17 23:05 Urine Culture - Final Urine,Voided Assessment and Plan Plan: Assessment Right-sided pleural effusion with right sided pneumonia suspect mixed/gram- negative in nature Acute exacerbation of chronic obstructive pulmonary disease Acute on chronic hypoxic respiratory failure Congestive heart failure Probable pulmonary hypertension Atrial fibrillation Chronic anemia Severe protein calorie malnutrition Plan Medications have been reviewed and will be continued as ordered. Patient will undergo a thoracentesis today. The procedure as well as the risk and benefits have been discussed at length with the patient all questions have been answered. After the thoracentesis is completed the fluid will be sent for lab workup. The patient will be able to start back on her Coumadin tonight. The patient should continue with Lovenox until her INR is more than 1.8. Continue with Solu-Medrol and budesonide as well as Mucinex. Repeat labs in the morning. Cardiology on consult for probable pulmonary hypertension and CHF. Infectious disease on consult. Continue with pulmonary hygiene, coughing and deep breathing exercises, and supportive care. Supplemental oxygen to maintain oxygen saturations of 92% or better. Continue nebulizer treatments. GI and DVT prophylaxis. We will add ensure 3 times a day with meals. Blood, urine cultures are negative thus far. We will continue to monitor labs/results and adjust treatment as necessary. Further recommendations pending. I performed an examination of the patient and discussed their management with the nurse practitioner. I have reviewed the nurse practitioner's note and agree with the documented findings and plan of care.
--- NOTE | 2017-05-05 16:31 | P.PCN ---
Date of Procedure: 05/05/17 Preoperative Diagnosis: Pleural effusion right, mitral stenosis, and history of heart failure acute on chronic systolic heart failure, shortness of breath Postoperative Diagnosis: As above Procedure(s) Performed: Right thoracentesis Implants: Anesthesia: local Surgeon: Segun Hinds Estimated Blood Loss (ml): 0 Condition: stable Disposition: floor Indications for Procedure: As above Operative Findings: 1.6 L of clear yellow pleural fluid aspirated Description of Procedure: Informed consent obtained from the patient and the family at length procedure complications side effects and alternatives explained to the patient. Ultrasound was utilized to observe the maximum depth of the fluid. 1% lidocaine was infiltrated admitted to scapular line at eighth intercostal space on the right side after obtaining adequate local anesthesia small thin needle was placed over the upper margin of the rib clear pleural fluid was aspirated followed by 1/10 cm centimeter stab incision was performed, catheter in needle was placed needle was withdrawn and catheter left in position 1.6 L. Pleural fluid was aspirated patient tolerated procedure well no complication noted postprocedure chest x-ray pending fluid is being sent for Gram stain and culture cytology cell count if an biochemistry
--- NOTE | 2017-05-05 16:34 | XR ---
EXAMINATION TYPE: XR chest 1V portable DATE OF EXAM: 05/05/2017 Comparison: 05/03/2013 Clinical History: 57 year-old female post thoracentesis Findings: The heart is mildly enlarged. Hyperinflation with mild interstitial prominence. There is now small re sidual right pleural effusion. Underlying peripheral right basilar pneumothorax is present estimated at 20%. Impression: Only a small amount of residual right pleural effusion remains. Approximately 20% or smaller right ba silar pneumothorax is present. Findings called to charge nurse Zaynab [id number] at 4:30 PM.
[2017-05-05 17:04] LABS: Glucose,Whole Blood 110 mg/dL (75-99)
[2017-05-05] MEDS ORDERED: WARFARIN 2 MG TAB PO SCH (18:00)
[2017-05-05 18:57] LABS: RBC, Body Fluid 152 /uL
--- NOTE | 2017-05-05 19:27 | XR ---
EXAMINATION TYPE: XR chest 1V portable DATE OF EXAM: 05/05/2017 at 5:59 PM COMPARISON: Chest radiograph 05/05/2017 at 4:17 PM HISTORY: Follow-up pneumothorax TECHNIQUE: Portable AP upright radiograph FINDINGS: The right-sided pneumothorax is similar in its overall volume, estimated at approximately 2 0%. The right lung base consolidative opacity is redemonstrated, along with the architectural distortion and the small right pleural effusion. The mediastinum is midline. IMPRESSION: STABLE APPEARANCE TO THE RIGHT-SIDED PNEUMOTHORAX.
[2017-05-05 20:47] LABS: Glucose,Whole Blood 209 mg/dL (75-99)
[2017-05-05] MEDS: MONTELUKAST 10 MG TAB PO SCH (20:58)
[2017-05-05] MEDS: ATORVASTATIN 40 MG TAB PO SCH (20:59)
[2017-05-06] MEDS: PIPERACILLIN-TAZOBACTAM 3.375 GM in DEXTROSE/WATER 1 50ML.BAG IVPB SCH ×3 (00:51→16:45)
[2017-05-06] MEDS: SODIUM CHLORIDE 0.9% 1,000 ML IV SCH ×3 (00:51→17:55)
[2017-05-06] MEDS: methylPREDNISolone SOD SUCCI 40 MG/ML 1 ML VIAL IV SCH ×3 (00:51→16:44)
[2017-05-06 01:49] LABS: T. Protein, Body Fluid Source Pleural Fluid
[2017-05-06 02:11] LABS: Glucose, BF Source Pleural Fluid; LDH, Body Fluid Source Pleural Fluid
[2017-05-06] MEDS: IPRATROPIUM-ALBUTEROL 3 ML NEB INHALATION SCH ×5 (02:30→19:47)
[2017-05-06] MEDS: HYDROcodone/APAP 10-325MG 1 EACH TAB PO PRN ×3 (02:50→19:37)
[2017-05-06] MEDS: traZODone HCL 50 MG TAB PO SCH (02:52)
[2017-05-06] MEDS: CYCLOBENZAPRINE 10 MG TAB PO PRN ×2 (03:45→16:45)
[2017-05-06] MEDS: LEVOFLOXACIN 750 MG TAB PO SCH (06:02)
[2017-05-06 06:37] LABS: Mycoplasma IgG Antibody (EIA) 2.82 INDEX (<=0.90)
[2017-05-06 06:52] LABS: Glucose,Whole Blood 154 mg/dL (75-99)
[2017-05-06] MEDS: BUDESONIDE 0.5 MG/2 ML NEBU INHALATION SCH ×2 (07:26→19:47)
[2017-05-06 07:34] LABS: Basophils % (A) 0 %; CH 19.3; CHCM 27.8; Eosinophils % (A) 0 %; HCT 28.8 % (34.0-46.0); HDW 3.62; HGB 8.3 gm/dL (11.4-16.0); Hypochromasia Marked; Luc # (Auto) 0.05; Luc % (Auto) 0; Lymphocytes # (A) 0.8 k/uL (1.0-4.8); Lymphocytes % (A) 7 %; MCH 19.9 pg (25.0-35.0); MCHC 28.6 g/dL (31.0-37.0); MCV 69.5 fL (80.0-100.0); Mean Platelet Volume 7.1; Microcytosis Marked; Monocytes # (A) 0.4 k/uL (0-1.0); Monocytes % (A) 4 %; Neutrophils # (A) 10.2 k/uL (1.3-7.7); Neutrophils % (A) 89 %; Poikilocytosis Slight; RBC 4.15 m/uL (3.80-5.40); RDW 15.8 % (11.5-15.5); WBC 11.5 k/uL (3.8-10.6); WBC (Perox) 12.03
[2017-05-06] MEDS: HYDROmorphone 1 MG/ML 1 ML SYRINGE IVP PRN ×2 (07:44→15:16)
[2017-05-06 07:47] LABS: INR 1.2 (<1.1); Prothrombin Time 11.6 sec (9.0-12.0)
[2017-05-06] MEDS: ENOXAPARIN 40 MG/0.4 ML SYRINGE SQ SCH ×2 (07:50→21:27)
[2017-05-06] MEDS: POTASSIUM CHLORIDE ER 10 MEQ TAB.ER.PRT PO SCH (07:50)
[2017-05-06] MEDS: guaiFENesin 600 MG TABLET.ER PO SCH ×2 (07:51→21:27)
[2017-05-06] MEDS: DOCUSATE 100 MG CAP PO SCH (07:51)
[2017-05-06] MEDS: DIGOXIN 125 MCG TAB PO SCH (07:51)
[2017-05-06] MEDS: FUROSEMIDE 40 MG TAB PO SCH ×2 (07:51→21:27)
[2017-05-06 07:53] LABS: ALT 20 U/L (9-52); AST 21 U/L (14-36); Alkaline Phosphatase 51 U/L (38-126); Anion Gap 4 mmol/L; Blood Urea Nitrogen 22 mg/dL (7-17); Calcium 8.4 mg/dL (8.4-10.2); Carbon Dioxide 37 mmol/L (22-30); Chloride 95 mmol/L (98-107); Glucose 131 mg/dL (74-99); Non-African American GFR(MDRD) >60 (>60 ml/min/1.73 sqM); Potassium 3.6 mmol/L (3.5-5.1); Sodium 136 mmol/L (137-145); Total Bilirubin 0.5 mg/dL (0.2-1.3); Total Protein 5.5 g/dL (6.3-8.2)
--- NOTE | 2017-05-06 08:15 | XR ---
EXAMINATION TYPE: XR chest 1V portable DATE OF EXAM: 05/06/2017 COMPARISON: Prior chest x-ray 05/05/2017 HISTORY: Pneumothorax TECHNIQUE: Single frontal view of the chest is obtained. FINDINGS: Right-sided pneumothorax is again noted and may be slightly increased in size as compared to prior exam, there is a right pleural effusion. Findings may represent trapped lung. Heart remains enlarged. Evidence of old granulomatous disease. May be underlying pulmonary artery hypertension, pul monary artery region appears enlarged. Abnormal increased attenuation persists at the right lung base possibly due to atelectasis versus pneumonia or edema. Tumor not excluded. IMPRESSION: There may be a slight interval increase in the patient's right-sided pneumothorax. Cardi omegaly, pulmonary artery hypertension and additional findings above.
[2017-05-06] MEDS: INSULIN LISPRO (humaLOG) 300 UNIT/3 ML VIAL SQ SCH ×4 (08:56→21:28)
--- NOTE | 2017-05-06 09:50 | CT ---
EXAMINATION TYPE: CT chest wo con DATE OF EXAM: 03/21/2017 COMPARISON: 05/06/2017 HISTORY: Pneumothorax CT DLP: 162.40 mGycm. Automated Exposure Control for Dose Reduction was Utilized. TECHNIQUE: CT scan of the thorax is performed without IV contrast. FINDINGS: LUNGS: There is a pneumothorax measuring approximately 30%. No mediastinal deviation. Mcdonough pneumotho rax component with pleural fluid also noted in areas of consolidation. Exam is significantly limited due to lack of contrast. MEDIASTINUM: Lack of IV contrast is noted to limit evaluation for mediastinal and especially hilar ad enopathy. There are no definitive greater than 1 cm hilar or mediastinal lymph nodes. The heart is en larged. Assessment for pericardial effusion limited due to lack of contrast. Tracheobronchial calcifi cations are seen atherosclerotic change aorta. No diagnostic evidence of aneurysm. Consolidation invo lving both lung bases noted. More masslike density left lower lobe appears to be planar on the sagitt al and coronal image therefore likely related to consolidation but should be followed to resolution. Correlate for underlying chronic obstructive pulmonary disease. There is an enlarged 1.4 cm lymphadenopathy in the pretracheal region. Pulmonary arteries are promine nt correlate for pulmonary arterial hypertension. OTHER: Splenic granuloma noted. IMPRESSION: 1. Approximate 25-30% right-sided pneumothorax with no significant mediastinal deviation. Pleural flu id also present finding compatible with hydropneumothorax. 2. Right basilar and left basilar consolidation. May be related to compressive atelectasis versus pne umonia follow to resolution. 3. Cardiomegaly correlate for COPD with mediastinal adenopathy. 4. Calcification along the left anterolateral pericardium can sometimes be associated with constricti ve pericarditis correlate clinically.
[2017-05-06] MEDS ORDERED: DOCUSATE 100 MG CAP PO ONE (10:15)
--- NOTE | 2017-05-06 10:49 | P.PN ---
Subjective 05/02/17 This is a 57-year-old female patient being seen, examined and evaluated. Patient is well-known to our services. This Patient comes in with complaints of shortness of breath that had been increasing over the last few days. The patient does have a significant medical history for CHF, COPD that is severe, chronic persistent asthma but severe, atrial fibrillation, renal insufficiency and liver disease. This patient has a known history for reoccurring pneumonia as well. Patient states she uses 4-5 L of supplemental oxygen at home at all times. Upon examination the patient's resting up in bed on 5 L of supplemental oxygen, she states she has shortness of breath with any minimal exertion as well as extensive conversation. Chest x-ray has been reviewed and shows an increasing right pleural effusion which is associated with atelectasis, possible pulmonary artery hypertension, and congestive heart failure. 05/03/17 upon examination today the patient's resting up in bed and continues to be on 5 L of supplemental oxygen. Patient continues to have shortness of breath with any minimal exertion and extensive conversation. Patient did undergo an ultrasound of the chest yesterday which revealed a right pleural effusion fluid pocket of 10.4 cm this has increased significantly since her last ultrasound of the chest which was done 02/08/2017 which showed a right pleural effusion pocket of 4.2 at that time. During that admission in January the effusion was too small to undergo a thoracentesis. Of note ,since its progression, the patient is a candidate to have the thoracentesis performed in regards to size. However the patient was on Coumadin for chronic A. fib and her INR yesterday was 2.9. Yesterday we discontinued the Coumadin and put the patient on Lovenox in preparation for thoracentesis. A repeat INR was performed today and is currently 3.6. We would like the patient's INR to be closer to 1.4 before we perform the thoracentesis. Repeat labs will be drawn tomorrow. 05/04/17 examination today the patient's resting up in bed and continues on 5 L of supplemental oxygen. Patient states she is a little less short of breath today than previously. However she still continues to have shortness of breath with exertion. Patient's INR today was 3.7, which is still too high to undergo a thoracentesis. Labs have been reviewed. We truly the increase in INR due to the patient being on Levaquin as a side effect. 05/05/17- upon examination today the patient is resting up in bed and continues on the 5 L of supplemental oxygen. The patient's INR today is 1.3 therefore we can go forth with the thoracentesis. The procedure as well as the risk and benefits have been discussed at length with the patient QUESTIONS have been answered. After the thoracentesis is completed the fluid will be sent for lab workup. The patient will be able to start back on her Coumadin tonight. The patient should continue with Lovenox until her INR is more than 1.8. Patient continues to have shortness of breath with exertion. 05/06/17- patient did undergo a thoracentesis yesterday. 1.6 L of clear yellow pleural fluid was removed. It was discovered on the post x-ray at the patient did have a 20% pneumothorax. The patient was asymptomatic at that time. The patient was to be watched closely overnight and have a repeat chest x-ray that evening which was stable and another one this morning which dates show a possible slight increase in the pneumothorax. CT of the chest without contrast was obtained and results are not readily available. We will consult cardiothoracic to follow the patient and interventional radiology to place a pigtail catheter. Upon examination the patient is resting up in bed and despite the pneumothorax the patient states her breathing is better today after having the fluid removed. Patient is still requiring 4-5 L of supplemental oxygen however she said her shortness of breath has decreased. Patient is afebrile no further complaints. Objective - Vital Signs Vital signs: Vital Signs Temp 98.2 F 05/06/17 07:00 Pulse 73 05/06/17 08:00 Resp 16 05/06/17 08:00 BP 140/72 05/06/17 07:00 Pulse Ox 100 05/06/17 07:28 Intake & Output 05/05/17 05/06/17 05/06/17 18:59 06:59 18:59 Intake Total 1620 230 Balance 1620 230 Weight 48.5 kg 49.5 kg Intake: Intake, IV Titration 700 Amount Sodium Chloride 0.9% 1, 700 000 ml @ 100 mls/hr IV . Q10H MARY CARMEN Rx#:[id number] Oral 920 230 Other: Voiding Method Bedside Commode Bedside Commode Bedside Commode # Voids 1 1 1 # Bowel Movements 2 - Exam GENERAL EXAM: Alert, cachectic, comfortable in no apparent distress. HEAD: Normocephalic. EYES: Normal reaction of pupils, equal size. NOSE: Clear with pink turbinates. THROAT: No erythema or exudates. NECK: No masses, no JVD. CHEST: No chest wall deformity. LUNGS: Poor air entry is present, scattered rhonchi as well as expiratory wheezes noted throughout. Decreased breath sounds on the right base, however slightly improved from yesterday. CVS: S1 and S2 normal with no audible mumurs, regular rhythm. ABDOMEN: No hepatosplenomegaly, normal bowel sounds, no guarding or rigidity. EXTREMITIES: Trace edema noted, pedal pulses palpable. SKIN: No rashes, dressing in place to coccyx wound CENTRAL NERVOUS SYSTEM: No focal deficits, tone is normal in all 4 extremities. - Labs CBC & Chem 7: 05/06/17 06:57 05/06/17 06:57 Labs: Abnormal Lab Results - Last 24 Hours (Table) 05/03/17 05/05/17 05/05/17 Range/Units 07:15 11:54 16:45 WBC (3.8-10.6) k/uL Hgb (11.4-16.0) gm/dL Hct (34.0-46.0) % MCV (80.0-100.0) fL MCH (25.0-35.0) pg MCHC (31.0-37.0) g/dL RDW (11.5-15.5) % Neutrophils # (1.3-7.7) k/uL Lymphocytes # (1.0-4.8) k/uL Sodium (137-145) mmol/L Chloride (98-107) mmol/L Carbon Dioxide (22-30) mmol/L BUN (7-17) mg/dL Glucose (74-99) mg/dL POC Glucose (mg/dL) 229 H 110 H (75-99) mg/dL Total Protein (6.3-8.2) g/dL Albumin (3.5-5.0) g/dL Mycoplasma pneumon IgG 2.82 H (<=0.90) INDEX 05/05/17 05/06/17 05/06/17 Range/Units 20:45 06:51 06:57 WBC 11.5 H (3.8-10.6) k/uL Hgb 8.3 L (11.4-16.0) gm/dL Hct 28.8 L (34.0-46.0) % MCV 69.5 L (80.0-100.0) fL MCH 19.9 L (25.0-35.0) pg MCHC 28.6 L (31.0-37.0) g/dL RDW 15.8 H (11.5-15.5) % Neutrophils # 10.2 H (1.3-7.7) k/uL Lymphocytes # 0.8 L (1.0-4.8) k/uL Sodium (137-145) mmol/L Chloride (98-107) mmol/L Carbon Dioxide (22-30) mmol/L BUN (7-17) mg/dL Glucose (74-99) mg/dL POC Glucose (mg/dL) 209 H 154 H (75-99) mg/dL Total Protein (6.3-8.2) g/dL Albumin (3.5-5.0) g/dL Mycoplasma pneumon IgG (<=0.90) INDEX 05/06/17 Range/Units 06:57 WBC (3.8-10.6) k/uL Hgb (11.4-16.0) gm/dL Hct (34.0-46.0) % MCV (80.0-100.0) fL MCH (25.0-35.0) pg MCHC (31.0-37.0) g/dL RDW (11.5-15.5) % Neutrophils # (1.3-7.7) k/uL Lymphocytes # (1.0-4.8) k/uL Sodium 136 L (137-145) mmol/L Chloride 95 L (98-107) mmol/L Carbon Dioxide 37 H (22-30) mmol/L BUN 22 H (7-17) mg/dL Glucose 131 H (74-99) mg/dL POC Glucose (mg/dL) (75-99) mg/dL Total Protein 5.5 L (6.3-8.2) g/dL Albumin 3.0 L (3.5-5.0) g/dL Mycoplasma pneumon IgG (<=0.90) INDEX Microbiology - Last 24 Hours (Table) 05/05/17 18:00 Gram Stain - Preliminary Sputum 05/05/17 16:15 Gram Stain - Preliminary Pleural Fluid Body Fluid Culture - Preliminary 05/02/17 02:30 Blood Culture - Preliminary Blood No Growth after 96 hours 05/05/17 16:15 Fungal Culture - Preliminary Pleural Fluid 05/05/17 16:15 Acid Fast Bacilli Culture - Preliminary Pleural Fluid Assessment and Plan Plan: Assessment Right-sided pneumothorax Right-sided pleural effusion with right sided pneumonia suspect mixed/gram- negative in nature Acute exacerbation of chronic obstructive pulmonary disease Acute on chronic hypoxic respiratory failure Congestive heart failure Probable pulmonary hypertension Atrial fibrillation Chronic anemia Severe protein calorie malnutrition Plan Medications have been reviewed and will be continued as ordered. We will continue to monitor the pneumothorax. Patient will be undergoing a CT of the chest this morning those results are not readily available at this time. Consult to cardiothoracic surgeon is in place to follow the patient. We will consult interventional radiology to possibly place a pigtail catheter. Due to the pneumothorax we will hold the patient's Coumadin at this time and continue on the Lovenox. Pleural fluid has been sent for lab workup. Continue with Solu-Medrol and budesonide as well as Mucinex. Repeat labs in the morning. Cardiology on consult for probable pulmonary hypertension and CHF. Infectious disease on consult. Continue with pulmonary hygiene, coughing and deep breathing exercises, and supportive care. Supplemental oxygen to maintain oxygen saturations of 92% or better. Continue nebulizer treatments. GI and DVT prophylaxis. We will add ensure 3 times a day with meals. Blood, urine cultures are negative thus far. We will continue to monitor labs/results and adjust treatment as necessary. Further recommendations pending. I performed an examination of the patient and discussed their management with the nurse practitioner. I have reviewed the nurse practitioner's note and agree with the documented findings and plan of care.
[2017-05-06 11:27] LABS: Glucose,Whole Blood 283 mg/dL (75-99)
--- NOTE | 2017-05-06 13:42 | PN ---
Mrs. Loya is a 57-year-old female with known history of mitral stenosis, chronic atrial fibrillation, chronic obstructive lung disease who presented with progressive dyspnea and evidence of pleural effusion, underwent thoracentesis yesterday. She is feeling much better today. Her breathing is better. She is denying any chest pain. No dizziness or palpitation. She continues to be at this time on Lipitor 40 mg daily, digoxin 0.125 mg daily , on Lovenox subQ, Lasix 40 mg twice a day, ipratropium, levofloxacin, methylprednisolone, Apresoline, and Coumadin was reinitiated. PHYSICAL EXAMINATION: Blood pressure 140/70 with a heart rate in the 80s. LUNGS: Improved air exchange in the right base. HEART: Irregularly, irregular, S1, S2 with a diastolic murmur, no rub. ABDOMEN: Soft, nontender. EXTREMITIES: No edema. Lab data revealed a hemoglobin of 8.3, BUN and creatinine of 22 and 0.7, potassium 3.6, INR of 1.2. IMPRESSION: 1. Evidence of respiratory failure related to pleural effusion, chronic obstructive disease and severe mitral stenosis. 2. Severe mitral stenosis not felt to be a candidate for any surgical intervention. 3. Status post thoracentesis. 4. Chronic atrial fibrillation, anticoagulated. RECOMMENDATION: From the cardiac standpoint, will continue current therapy and the prognosis is guarded. Will see her on an as-needed basis. Please feel free to call us for any questions. [email or web address]
--- NOTE | 2017-05-06 14:00 | PN ---
DATE OF SERVICE: 05/06/2017 This is a 57-year-old white female who has multiple chronic medical problems. She is known to have severe mitral stenosis with chronic atrial fibrillation and chronic congestive heart failure. She is also known to have chronic obstructive pulmonary disease, renal failure, chronic anemia and chronic low back pain and patient was admitted at this time with increasing shortness of breath. She was found to have pulmonary infiltrate and also right pleural effusion and patient was started on IV antibiotics after treatments and IV Solu- Medrol and placed back on her previous medications and patient was seen in consultation by tar pot worker, envelope patternmaker and patient's overall pulmonary status improved but she remained extremely short of breath and Dr. Hinds did a thoracentesis yesterday more than a liter of fluid taken out and patient seemed to be breathing a little easier today and her hemoglobin is dropping. Today it is 8.3 and patient has received blood transfusion in the past and will monitor her hemoglobin and hematocrit and also will place her on iron tablets. She is still in atrial fibrillation with controlled ventricular rate. Her white cell signs getting fairly stable and will continue the current medications and apparently she has a small pneumothorax following the thoracentesis that is also being watched. Overall prognosis is guarded. MTDD
--- NOTE | 2017-05-06 14:17 | P.GSCN ---
History of Present Illness Consult date: 05/06/17 Reason for Consult: Pneumothorax, treatment recommendations. Requesting physician: Segun Hinds History of present illness: This 57-year-old female presented to the emergency department with increasing shortness of breath over several days. She has multiple comorbid illnesses and has been admitted several times with similar symptoms. She was diagnosed as having an exacerbation of her chronic obstructive pulmonary disease. In addition she had a large right pleural effusion. She was admitted for treatment. On 05/05/2017 Dr. Hinds did a thoracentesis, removing 1.6 L of fluid. With subsequent ex vacuo pneumothorax. Dr. Romano from cardiothoracic surgery was consulted for treatment recommendations. Review of Systems 14 point review systems was completed and was negative except as noted. - Respiratory Respiratory Comment(s): Patient states her breathing is about the same or better. Reports as per HPI Past Medical History Past Medical History: Atrial Fibrillation, Asthma, Heart Failure, COPD, Diabetes Mellitus, GERD/Reflux, Liver Disease, Pneumonia, Renal Disease, Respiratory Disorder, Skin Disorder Additional Past Medical History / Comment(s): Severe mitral valve stenosis and severe tricuspid valve regurgitation, O2 at 5L/NC ATC, current decub lower back per pt, UTI with sepsis, anemia, elevated liver enzymes in the past, chronic renal dx, Afib and has had RVR in past, chronic back pain. History of Any Multi-Drug Resistant Organisms: VRE Year Discovered:: 10/25/16 MDRO Source:: Urine Past Surgical History: Hysterectomy Additional Past Surgical History / Comment(s): 2 mitral valve balloon valvuloplasty, colonoscopy, PICC line insertion (since removed). Past Anesthesia/Blood Transfusion Reactions: No Reported Reaction Additional Past Anesthesia/Blood Transfusion Reaction / Comm: Pt has received blood in past without reaction. Additional Psychological History / Comment(s): aleksandr. Lives with adult daughter and her spouse. Has nebulizer and glucose monitor. no experience or international travel. No animal exposures. Positive tobacco use. No current alcohol or injection drug use Smoking Status: Current every day smoker - Past Family History Father Family Medical History: Dementia Additional Family Medical History / Comment(s): Father is in his 80's Mother Family Medical History: Myocardial Infarction ([place]) Additional Family Medical History / Comment(s): valve disorder. Mother of a [place] in her 30's Medications and Allergies Home Medications Medication Instructions Recorded Confirmed Type HYDROcodone/APAP 10-325MG [[place] 1 tab PO Q8H PRN 05/19/15 05/02/17 History 10-325] Ipratropium/Albuterol Sulfate 1 puff INHALATION RT-QID PRN 05/19/15 05/02/17 History [Combivent Respimat Inhaler] Albuterol Nebulized [Ventolin 2.5 mg INHALATION RT-QID PRN 02/01/17 05/02/17 History Nebulized] Digoxin [Digitek] 125 mcg PO DAILY 02/01/17 05/02/17 History Atorvastatin [Lipitor] 40 mg PO HS 05/02/17 05/02/17 History Furosemide [Lasix] 40 mg PO BID 05/02/17 05/02/17 History Montelukast [Singulair] 10 mg PO HS 05/02/17 05/02/17 History Potassium Chloride ER [K-Dur 10] 10 meq PO DAILY 05/02/17 05/02/17 History Warfarin [Coumadin] 2 mg PO HS 05/02/17 05/02/17 History traZODone HCL [Desyrel] 50 mg PO HS 05/02/17 05/02/17 History Allergies Allergy/AdvReac Type Severity Reaction Status Date / Time aspirin Allergy Unknown Verified 05/02/17 08:20 Surgical - Exam Vital Signs Pulse Ox 99 05/02/17 04:27 - General no distress, no pain, chronically ill - Eyes PERRL, normal ocular movement - ENT no hearing loss - Neck trachea midline - Respiratory Lungs sounds diminished bilaterally, more so on the right side, coarse breath sounds bilaterally. Currently on 4 L nasal cannula with oxygen saturation 100%. - Cardiovascular Rhythm: irregularly irregular Heart Sounds: normal: S1, S2 - Abdomen Abdomen: soft, non tender, bowel sounds - Genitourinary Deferred - Rectum Deferred - Integumentary no rash - Neurologic normal coordination, normal sensation - Psychiatric oriented to time, oriented to person, oriented to place, speech is normal, memory intact Results - Labs 05/06/17 06:57 05/06/17 06:57 Abnormal Lab Results - Last 24 Hours (Table) 05/03/17 05/05/17 05/05/17 Range/Units 07:15 16:45 20:45 WBC (3.8-10.6) k/uL Hgb (11.4-16.0) gm/dL Hct (34.0-46.0) % MCV (80.0-100.0) fL MCH (25.0-35.0) pg MCHC (31.0-37.0) g/dL RDW (11.5-15.5) % Neutrophils # (1.3-7.7) k/uL Lymphocytes # (1.0-4.8) k/uL Sodium (137-145) mmol/L Chloride (98-107) mmol/L Carbon Dioxide (22-30) mmol/L BUN (7-17) mg/dL Glucose (74-99) mg/dL POC Glucose (mg/dL) 110 H 209 H (75-99) mg/dL Total Protein (6.3-8.2) g/dL Albumin (3.5-5.0) g/dL Mycoplasma pneumon IgG 2.82 H (<=0.90) INDEX 05/06/17 05/06/17 05/06/17 Range/Units 06:51 06:57 06:57 WBC 11.5 H (3.8-10.6) k/uL Hgb 8.3 L (11.4-16.0) gm/dL Hct 28.8 L (34.0-46.0) % MCV 69.5 L (80.0-100.0) fL MCH 19.9 L (25.0-35.0) pg MCHC 28.6 L (31.0-37.0) g/dL RDW 15.8 H (11.5-15.5) % Neutrophils # 10.2 H (1.3-7.7) k/uL Lymphocytes # 0.8 L (1.0-4.8) k/uL Sodium 136 L (137-145) mmol/L Chloride 95 L (98-107) mmol/L Carbon Dioxide 37 H (22-30) mmol/L BUN 22 H (7-17) mg/dL Glucose 131 H (74-99) mg/dL POC Glucose (mg/dL) 154 H (75-99) mg/dL Total Protein 5.5 L (6.3-8.2) g/dL Albumin 3.0 L (3.5-5.0) g/dL Mycoplasma pneumon IgG (<=0.90) INDEX 05/06/17 Range/Units 11:22 WBC (3.8-10.6) k/uL Hgb (11.4-16.0) gm/dL Hct (34.0-46.0) % MCV (80.0-100.0) fL MCH (25.0-35.0) pg MCHC (31.0-37.0) g/dL RDW (11.5-15.5) % Neutrophils # (1.3-7.7) k/uL Lymphocytes # (1.0-4.8) k/uL Sodium (137-145) mmol/L Chloride (98-107) mmol/L Carbon Dioxide (22-30) mmol/L BUN (7-17) mg/dL Glucose (74-99) mg/dL POC Glucose (mg/dL) 283 H (75-99) mg/dL Total Protein (6.3-8.2) g/dL Albumin (3.5-5.0) g/dL Mycoplasma pneumon IgG (<=0.90) INDEX Microbiology - Last 24 Hours (Table) 05/05/17 18:00 Gram Stain - Preliminary Sputum 05/05/17 16:15 Gram Stain - Preliminary Pleural Fluid Body Fluid Culture - Preliminary 05/02/17 02:30 Blood Culture - Preliminary Blood No Growth after 96 hours 05/05/17 16:15 Fungal Culture - Preliminary Pleural Fluid 05/05/17 16:15 Acid Fast Bacilli Culture - Preliminary Pleural Fluid Diabetes panel 05/06/17 Range/Units 06:57 Sodium 136 L (137-145) mmol/L Potassium 3.6 (3.5-5.1) mmol/L Chloride 95 L (98-107) mmol/L Carbon Dioxide 37 H (22-30) mmol/L BUN 22 H (7-17) mg/dL Creatinine 0.73 (0.52-1.04) mg/dL Glucose 131 H (74-99) mg/dL Calcium 8.4 (8.4-10.2) mg/dL AST 21 (14-36) U/L ALT 20 (9-52) U/L Alkaline Phosphatase 51 (38-126) U/L Total Protein 5.5 L (6.3-8.2) g/dL Albumin 3.0 L (3.5-5.0) g/dL Calcium panel 05/06/17 Range/Units 06:57 Calcium 8.4 (8.4-10.2) mg/dL Albumin 3.0 L (3.5-5.0) g/dL Pituitary panel 05/06/17 Range/Units 06:57 Sodium 136 L (137-145) mmol/L Potassium 3.6 (3.5-5.1) mmol/L Chloride 95 L (98-107) mmol/L Carbon Dioxide 37 H (22-30) mmol/L BUN 22 H (7-17) mg/dL Creatinine 0.73 (0.52-1.04) mg/dL Glucose 131 H (74-99) mg/dL Calcium 8.4 (8.4-10.2) mg/dL Adrenal panel 05/06/17 Range/Units 06:57 Sodium 136 L (137-145) mmol/L Potassium 3.6 (3.5-5.1) mmol/L Chloride 95 L (98-107) mmol/L Carbon Dioxide 37 H (22-30) mmol/L BUN 22 H (7-17) mg/dL Creatinine 0.73 (0.52-1.04) mg/dL Glucose 131 H (74-99) mg/dL Calcium 8.4 (8.4-10.2) mg/dL Total Bilirubin 0.5 (0.2-1.3) mg/dL AST 21 (14-36) U/L ALT 20 (9-52) U/L Alkaline Phosphatase 51 (38-126) U/L Total Protein 5.5 L (6.3-8.2) g/dL Albumin 3.0 L (3.5-5.0) g/dL - Imaging Chest x-ray: image reviewed CT scan - chest: image reviewed Assessment and Plan (1) Status post thoracentesis Status: Acute (2) Pneumothorax Status: Acute (3) COPD (chronic obstructive pulmonary disease) Status: Acute (4) Afib Status: Acute (5) Pleural effusion Status: Acute Plan: The patient was seen and examined at the bedside with Dr. Romano. Chart/ diagnostics were reviewed. Medical management per primary care service. This patient has an ex vacuo pneumothorax status post thoracentesis. At this time we feel she does not need a chest tube, she should be monitored closely. This plan was discussed between Dr. Romano and Dr. Hinds and both are in agreement. Thank you Dr. Hinds for this consult. We look forward to working with you the care of your patient. Time with Patient: Greater than 30
[2017-05-06] MEDS: FERROUS SULFATE 325 MG TAB PO SCH (15:11)
[2017-05-06 16:48] LABS: Glucose,Whole Blood 150 mg/dL (75-99)
[2017-05-06 20:05] LABS: Glucose,Whole Blood 178 mg/dL (75-99)
[2017-05-06] MEDS ORDERED: HYDROmorphone 1 MG/ML 1 ML SYRINGE IVP STA (20:40)
[2017-05-06] MEDS: ALPRAZolam 0.5 MG TAB PO PRN (21:26)
[2017-05-06] MEDS: ATORVASTATIN 40 MG TAB PO SCH (21:27)
[2017-05-06] MEDS: MONTELUKAST 10 MG TAB PO SCH (21:28)
[2017-05-07] MEDS: PIPERACILLIN-TAZOBACTAM 3.375 GM in DEXTROSE/WATER 1 50ML.BAG IVPB SCH ×3 (00:05→16:10)
[2017-05-07] MEDS: HYDROmorphone 1 MG/ML 1 ML SYRINGE IVP PRN ×3 (00:05→16:09)
[2017-05-07] MEDS: traZODone HCL 50 MG TAB PO SCH ×2 (00:07→22:52)
[2017-05-07] MEDS: methylPREDNISolone SOD SUCCI 40 MG/ML 1 ML VIAL IV SCH ×3 (01:34→16:12)
[2017-05-07] MEDS: LEVOFLOXACIN 750 MG TAB PO SCH (05:36)
[2017-05-07] MEDS: SODIUM CHLORIDE 0.9% 1,000 ML IV SCH ×2 (05:37→16:05)
[2017-05-07] MEDS: HYDROcodone/APAP 10-325MG 1 EACH TAB PO PRN ×3 (05:42→20:19)
[2017-05-07 07:38] LABS: Glucose,Whole Blood 170 mg/dL (75-99)
[2017-05-07] MEDS: INSULIN LISPRO (humaLOG) 300 UNIT/3 ML VIAL SQ SCH ×4 (07:47→20:57)
[2017-05-07] MEDS: FUROSEMIDE 40 MG TAB PO SCH ×2 (07:51→20:22)
[2017-05-07] MEDS: DOCUSATE 100 MG CAP PO SCH (07:51)
[2017-05-07] MEDS: guaiFENesin 600 MG TABLET.ER PO SCH ×2 (07:51→20:22)
[2017-05-07] MEDS: ENOXAPARIN 40 MG/0.4 ML SYRINGE SQ SCH ×2 (07:51→20:22)
[2017-05-07] MEDS: POTASSIUM CHLORIDE ER 10 MEQ TAB.ER.PRT PO SCH (07:52)
[2017-05-07] MEDS: DIGOXIN 125 MCG TAB PO SCH (07:52)
--- NOTE | 2017-05-07 07:55 | XR ---
EXAMINATION TYPE: XR chest 1V portable DATE OF EXAM: 05/07/2017 CLINICAL HISTORY: Difficulty breathing and pneumothorax progress study. TECHNIQUE: Single AP portable upright view of the chest is obtained. COMPARISON: Chest x-ray and CT chest from one day earlier FINDINGS: There is persistent small to moderate-sized basilar right hydropneumothorax. Small right a pical pneumothorax is stable. There is right lower lung infiltrate and atelectasis and patchy left ba silar atelectasis and/or infiltrate redemonstrated. Calcifications left lung base correlate with card iac apical pericardial calcification. There is persistent cardiomegaly with left hilar fullness corre lating with enlarged pulmonary arteries. No mediastinal shift is seen. Osseous structures are deminer alized. IMPRESSION: Overall stable findings, small to moderate size right hydropneumothorax with right lowe r lung infiltrate and atelectatic change and patchy left basilar atelectasis and/or infiltrate with c ardiomegaly and pulmonary artery hypertension all redemonstrated. No significant change from one day earlier.
[2017-05-07 08:06] LABS: Basophils % (A) 0 %; CHCM 26.9; Eosinophils % (A) 0 %; HCT 31.4 % (34.0-46.0); HDW 3.52; HGB 8.6 gm/dL (11.4-16.0); Hypochromasia Marked; Luc # (Auto) 0.07; Luc % (Auto) 1; Lymphocytes # (A) 0.9 k/uL (1.0-4.8); Lymphocytes % (A) 10 %; MCH 19.4 pg (25.0-35.0); MCHC 27.3 g/dL (31.0-37.0); MCV 71.2 fL (80.0-100.0); Mean Platelet Volume 7.2; Microcytosis Moderate; Monocytes # (A) 0.3 k/uL (0-1.0); Monocytes % (A) 4 %; Neutrophils # (A) 7.8 k/uL (1.3-7.7); Neutrophils % (A) 85 %; Poikilocytosis Slight; RBC 4.41 m/uL (3.80-5.40); RDW 15.9 % (11.5-15.5); WBC 9.1 k/uL (3.8-10.6); WBC (Perox) 9.71
[2017-05-07 08:12] LABS: ALT 27 U/L (9-52); AST 23 U/L (14-36); Alkaline Phosphatase 56 U/L (38-126); Anion Gap 6 mmol/L; Blood Urea Nitrogen 20 mg/dL (7-17); Calcium 8.5 mg/dL (8.4-10.2); Carbon Dioxide 39 mmol/L (22-30); Chloride 95 mmol/L (98-107); Glucose 138 mg/dL (74-99); Non-African American GFR(MDRD) >60 (>60 ml/min/1.73 sqM); Potassium 3.9 mmol/L (3.5-5.1); Sodium 140 mmol/L (137-145); Total Bilirubin 0.5 mg/dL (0.2-1.3); Total Protein 5.6 g/dL (6.3-8.2)
[2017-05-07 08:16] LABS: INR 1.2 (<1.2); Prothrombin Time 11.7 sec (9.0-12.0)
[2017-05-07] MEDS: IPRATROPIUM-ALBUTEROL 3 ML NEB INHALATION SCH ×4 (08:45→20:43)
[2017-05-07] MEDS: BUDESONIDE 0.5 MG/2 ML NEBU INHALATION SCH ×2 (08:45→20:43)
--- NOTE | 2017-05-07 10:44 | P.PN ---
Subjective Principal diagnosis: Pneumothorax ex vacuo, status post thoracentesis, pleural effusion, chronic obstructive pulmonary disease, history of atrial fibrillation. Status post day #2 right thoracentesis with removal of 1.6 L of fluid. Patient is alert and orientated 3, sitting up in bed without complaints of distress. She reports her breathing is much improved since the fluid has been removed off her right chest. No complaints of pain. She is on 5 L nasal cannula oxygen at this time. Objective - Vital Signs Vital signs: Vital Signs Temp 97.8 F 05/07/17 07:00 Pulse 70 05/07/17 08:57 Resp 18 05/07/17 08:00 BP 158/72 05/07/17 07:00 Pulse Ox 100 05/07/17 08:47 Intake & Output 05/06/17 05/07/17 05/07/17 18:59 06:59 18:59 Intake Total 390 1340 Output Total 2750 Balance 390 -1410 Weight 49.5 kg 50 kg Intake: Intake, IV Titration 150 875 Amount Piperacillin-Tazobactam 3 50 50 .375 gm In Dextrose/Water 1 50ml.bag @ 12.5 mls/hr IVPB Q8HR MARY CARMEN Rx#: [id number] Sodium Chloride 0.9% 1, 100 825 000 ml @ 100 mls/hr IV . Q10H MARY CARMEN Rx#:[id number] Oral 240 465 Output: Urine 2750 Uretheral ([place]) 200 Other: Voiding Method Indwelling Catheter Indwelling Catheter Indwelling Catheter # Voids 1 3 1 - Constitutional General appearance: Present: cooperative, no acute distress, thin - EENT Eyes: Present: normal appearance ENT: Present: hearing grossly normal - Respiratory Details: Respirations are symmetrical and unlabored. She is tolerating 1000 mL on her incentive spirometry, reviewed the importance of using her incentive spirometry every hour while awake. Her oxygen saturations are 100% on 5 L nasal cannula. Her lung sounds are diminished bilateral bases right greater than left, scattered rhonchi throughout. - Cardiovascular Details: Irregular rhythm and rate, negative for S3, gallop or murmur. Heart rate: 73 (Remote telemetry showing atrial fibrillation.) Rhythm: regularly irregular Heart sounds: normal: S1, S2 - Gastrointestinal Gastrointestinal Comment(s): Abdomen is soft, nondistended, nontender. Positive bowel sounds to all 4 abdominal quadrants. Tolerating her diet. - Genitourinary Genitourinary Comment(s): Adequate, clear yellow urine. - Musculoskeletal Musculoskeletal: Present: generalized weakness, strength equal bilaterally - Psychiatric Psychiatric: Present: A&O x's 3, appropriate affect, intact judgment & insight - Allied health notes Allied health notes reviewed: nursing - Labs CBC & Chem 7: 05/07/17 07:35 05/07/17 07:35 Labs: Abnormal Lab Results - Last 24 Hours (Table) 05/06/17 05/06/17 05/06/17 Range/Units 11:22 16:47 20:03 Hgb (11.4-16.0) gm/dL Hct (34.0-46.0) % MCV (80.0-100.0) fL MCH (25.0-35.0) pg MCHC (31.0-37.0) g/dL RDW (11.5-15.5) % Neutrophils # (1.3-7.7) k/uL Lymphocytes # (1.0-4.8) k/uL INR (<1.2) Chloride (98-107) mmol/L Carbon Dioxide (22-30) mmol/L BUN (7-17) mg/dL Glucose (74-99) mg/dL POC Glucose (mg/dL) 283 H 150 H 178 H (75-99) mg/dL Total Protein (6.3-8.2) g/dL Albumin (3.5-5.0) g/dL 05/07/17 05/07/17 05/07/17 Range/Units 07:22 07:35 07:35 Hgb 8.6 L (11.4-16.0) gm/dL Hct 31.4 L (34.0-46.0) % MCV 71.2 L (80.0-100.0) fL MCH 19.4 L (25.0-35.0) pg MCHC 27.3 L (31.0-37.0) g/dL RDW 15.9 H (11.5-15.5) % Neutrophils # 7.8 H (1.3-7.7) k/uL Lymphocytes # 0.9 L (1.0-4.8) k/uL INR (<1.2) Chloride 95 L (98-107) mmol/L Carbon Dioxide 39 H (22-30) mmol/L BUN 20 H (7-17) mg/dL Glucose 138 H (74-99) mg/dL POC Glucose (mg/dL) 170 H (75-99) mg/dL Total Protein 5.6 L (6.3-8.2) g/dL Albumin 3.1 L (3.5-5.0) g/dL 05/07/17 Range/Units 07:35 Hgb (11.4-16.0) gm/dL Hct (34.0-46.0) % MCV (80.0-100.0) fL MCH (25.0-35.0) pg MCHC (31.0-37.0) g/dL RDW (11.5-15.5) % Neutrophils # (1.3-7.7) k/uL Lymphocytes # (1.0-4.8) k/uL INR 1.2 H (<1.2) Chloride (98-107) mmol/L Carbon Dioxide (22-30) mmol/L BUN (7-17) mg/dL Glucose (74-99) mg/dL POC Glucose (mg/dL) (75-99) mg/dL Total Protein (6.3-8.2) g/dL Albumin (3.5-5.0) g/dL Microbiology - Last 24 Hours (Table) 05/02/17 02:30 Blood Culture - Preliminary Blood No Growth after 120 hours 05/05/17 16:15 Acid Fast Bacilli Smear - Final Pleural Fluid Acid Fast Bacilli Culture - Preliminary 05/05/17 16:15 Gram Stain - Preliminary Pleural Fluid Body Fluid Culture - Preliminary 05/05/17 18:00 Gram Stain - Preliminary Sputum - Imaging and Cardiology Chest x-ray: report reviewed, image reviewed Assessment and Plan (1) COPD (chronic obstructive pulmonary disease) Status: Acute (2) Pneumothorax Status: Acute (3) Status post thoracentesis Status: Acute (4) Afib Status: Acute Plan: 1. Continue to monitor chest x-ray. We do not feel a chest tube is warranted at this time and she will be treated with conservative management. 2. We will see the patient on as needed basis. Time with Patient: Greater than 30
[2017-05-07 12:15] LABS: Glucose,Whole Blood 420 mg/dL (75-99)
[2017-05-07] MEDS: FERROUS SULFATE 325 MG TAB PO SCH (12:19)
--- NOTE | 2017-05-07 12:57 | PN ---
DATE OF SERVICE: 05/07/2017 This 57-year-old white female was admitted to the hospital with increasing shortness of breath and general weakness and the patient was known to have multiple chronic illness. She has been getting treatment for chronic obstructive pulmonary disease, chronic congestive heart failure, chronic atrial fibrillation and very severe mitral stenosis and also she was known to have diabetes mellitus, renal failure, chronic anemia and she was admitted to the hospital for further evaluation and treatment. Patient was started on IV antibiotics and because her chest x-ray showed pulmonary infiltrate and right pleural effusion and the patient was seen by Dr. Hinds in consultation and patient was started on ( ) meds, IV Solu-Medrol and Iv antibiotics. She is also known to have chronic congestive heart failure and chronic atrial fibrillation and she was seen by [facility] in consultation and she had a severe anemia. She received blood transfusion following admission and her hemoglobin is dropping now and she will be started on some iron tablets and Dr. Hinds did a thoracentesis yesterday and following this, apparently she developed some pneumothorax and Dr. Hinds removed about more than a liter of fluid and the cytology is pending and also patient had a follow up chest x-ray today that shows stable finding and there is no increase in the pneumothorax. Patient seems to be fairly comfortable. She is more comfortable after the thoracentesis. Her hemoglobin today has gone up a little bit and it is 8.6 today and patient also has chronic pain syndrome, especially low back pain, that is pain controlled with [place] and Dilaudid. She is being monitored closely for the pneumothorax and when her condition becomes stable, will have Social Service make discharge planning. Overall prognosis guarded. The therapeutic plan and also the discharge planning and the prognosis, etc. discussed in detail with the patient today. [facility]
[2017-05-07 16:50] LABS: Glucose,Whole Blood 196 mg/dL (75-99)
--- NOTE | 2017-05-07 18:06 | P.PN ---
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 Became profoundly weak. Was also having increasing amounts of pain to the right lower side of her chest. Because the she presented to the emergency center. Telemetry was some steroids and respiratory treatments and this has helped her as well as pain medications. She has less short of breath at the moment and she wasn't admission. But still is quite miserable. She sitting upright sitting forward relates this gives her some relief of the discomfort she has in her right lower chest toward the back. She is still short of breath compared to her baseline. She has no hemoptysis but does have a mild cough at times. She is not having significant sputum Production. He is feeling slightly better since the thoracentesis. Has been seen by cardiothoracic surgery with no plans for chest tube for her mild hydro-pneumothorax Objective - Vital Signs Vital signs: Vital Signs Temp 97.9 F 05/07/17 15:00 Pulse 72 05/07/17 16:14 Resp 18 05/07/17 16:00 BP 143/79 05/07/17 15:00 Pulse Ox 100 05/07/17 15:00 Intake & Output 05/06/17 05/07/17 05/07/17 18:59 06:59 18:59 Intake Total 390 1340 1570 Output Total 2750 Balance 390 -1410 1570 Weight 49.5 kg 50 kg Intake: Intake, IV Titration 150 875 850 Amount Piperacillin-Tazobactam 3 50 50 50 .375 gm In Dextrose/Water 1 50ml.bag @ 12.5 mls/hr IVPB Q8HR MARY CARMEN Rx#: [id number] Sodium Chloride 0.9% 1, 100 825 800 000 ml @ 100 mls/hr IV . Q10H MARY CARMEN Rx#:[id number] Oral 240 465 720 Output: Urine 2750 Uretheral ([place]) 200 Other: Voiding Method Indwelling Catheter Indwelling Catheter Indwelling Catheter # Voids 1 3 3 - Exam 57-year-old woman who looks much older than her stated age. She is chronically ill. HEENT: Anicteric conjunctiva are pink and moist nasal mucosa grossly intact without significant lesions, there is no thrush. Poor dentition Neck: The neck is supple without significant lymphadenopathy or thyromegaly. Lungs: Symmetrical air entry with wheezes scattered throughout the lung iqbal. Evidence of decreased breath sounds breath sounds to the right base. The extensive dullness and egophony to the right base has resolved Heart: irregular no S3 loud S4 There is no significant murmur click or rub, PMI was nondisplaced. Abdomen: Positive bowel sounds soft and nontender without palpable masses or organomegaly. There was no guarding or rebound. Extremities: The extremities have just trace edema. She has no tenderness over the joints. Skin the patient has changes of diabetes her lower extremities however she has a difficulty with chronically picking at her skin and has innumerable lesions that healed over arms and legs at this time. None of them are open are grossly draining at this time is evidence of some erythema to the coccyx. With this the Aquacel silver dressing has been applied. It has the foam border. Neuro: She is awake alert oriented to person place and time and does not exhibit any acute gross focal sensory motor deficits - Labs CBC & Chem 7: 05/07/17 07:35 05/07/17 07:35 Labs: Abnormal Lab Results - Last 24 Hours (Table) 05/06/17 05/07/17 05/07/17 Range/Units 20:03 07:22 07:35 Hgb 8.6 L (11.4-16.0) gm/dL Hct 31.4 L (34.0-46.0) % MCV 71.2 L (80.0-100.0) fL MCH 19.4 L (25.0-35.0) pg MCHC 27.3 L (31.0-37.0) g/dL RDW 15.9 H (11.5-15.5) % Neutrophils # 7.8 H (1.3-7.7) k/uL Lymphocytes # 0.9 L (1.0-4.8) k/uL INR (<1.2) Chloride (98-107) mmol/L Carbon Dioxide (22-30) mmol/L BUN (7-17) mg/dL Glucose (74-99) mg/dL POC Glucose (mg/dL) 178 H 170 H (75-99) mg/dL Total Protein (6.3-8.2) g/dL Albumin (3.5-5.0) g/dL 05/07/17 05/07/17 05/07/17 Range/Units 07:35 07:35 12:05 Hgb (11.4-16.0) gm/dL Hct (34.0-46.0) % MCV (80.0-100.0) fL MCH (25.0-35.0) pg MCHC (31.0-37.0) g/dL RDW (11.5-15.5) % Neutrophils # (1.3-7.7) k/uL Lymphocytes # (1.0-4.8) k/uL INR 1.2 H (<1.2) Chloride 95 L (98-107) mmol/L Carbon Dioxide 39 H (22-30) mmol/L BUN 20 H (7-17) mg/dL Glucose 138 H (74-99) mg/dL POC Glucose (mg/dL) 420 H (75-99) mg/dL Total Protein 5.6 L (6.3-8.2) g/dL Albumin 3.1 L (3.5-5.0) g/dL 05/07/17 Range/Units 16:30 Hgb (11.4-16.0) gm/dL Hct (34.0-46.0) % MCV (80.0-100.0) fL MCH (25.0-35.0) pg MCHC (31.0-37.0) g/dL RDW (11.5-15.5) % Neutrophils # (1.3-7.7) k/uL Lymphocytes # (1.0-4.8) k/uL INR (<1.2) Chloride (98-107) mmol/L Carbon Dioxide (22-30) mmol/L BUN (7-17) mg/dL Glucose (74-99) mg/dL POC Glucose (mg/dL) 196 H (75-99) mg/dL Total Protein (6.3-8.2) g/dL Albumin (3.5-5.0) g/dL Microbiology - Last 24 Hours (Table) 05/02/17 02:30 Blood Culture - Preliminary Blood No Growth after 120 hours 05/05/17 16:15 Acid Fast Bacilli Smear - Final Pleural Fluid Acid Fast Bacilli Culture - Preliminary 05/05/17 16:15 Gram Stain - Preliminary Pleural Fluid Body Fluid Culture - Preliminary Laboratory Results WBC 9.1 k/uL (3.8-10.6) 05/07/17 07:35 RBC 4.41 m/uL (3.80-5.40) 05/07/17 07:35 Hgb 8.6 gm/dL (11.4-16.0) L 05/07/17 07:35 Hct 31.4 % (34.0-46.0) L 05/07/17 07:35 MCV 71.2 fL (80.0-100.0) L 05/07/17 07:35 MCH 19.4 pg (25.0-35.0) L 05/07/17 07:35 MCHC 27.3 g/dL (31.0-37.0) L 05/07/17 07:35 RDW 15.9 % (11.5-15.5) H 05/07/17 07:35 Plt Count 232 k/uL (150-450) 05/07/17 07:35 Neutrophils % 85 % 05/07/17 07:35 Lymphocytes % 10 % 05/07/17 07:35 Monocytes % 4 % 05/07/17 07:35 Eosinophils % 0 % 05/07/17 07:35 Basophils % 0 % 05/07/17 07:35 Neutrophils # 7.8 k/uL (1.3-7.7) H 05/07/17 07:35 Lymphocytes # 0.9 k/uL (1.0-4.8) L 05/07/17 07:35 Monocytes # 0.3 k/uL (0-1.0) 05/07/17 07:35 Eosinophils # 0.0 k/uL (0-0.7) 05/07/17 07:35 Basophils # 0.0 k/uL (0-0.2) 05/07/17 07:35 Hypochromasia Marked 05/07/17 07:35 Poikilocytosis Slight 05/07/17 07:35 Microcytosis Moderate 05/07/17 07:35 PT 11.7 sec (9.0-12.0) 05/07/17 07:35 INR 1.2 (<1.2) H 05/07/17 07:35 APTT 39.4 sec (22.0-30.0) H 05/02/17 02:30 D-Dimer 0.60 mg/L FEU (<0.60) H 05/02/17 02:30 Sodium 140 mmol/L (137-145) 05/07/17 07:35 Potassium 3.9 mmol/L (3.5-5.1) 05/07/17 07:35 Chloride 95 mmol/L (98-107) L 05/07/17 07:35 Carbon Dioxide 39 mmol/L (22-30) H 05/07/17 07:35 Anion Gap 6 mmol/L 05/07/17 07:35 BUN 20 mg/dL (7-17) H 05/07/17 07:35 Creatinine 0.65 mg/dL (0.52-1.04) 05/07/17 07:35 Est GFR (MDRD) Af Amer >60 (>60 ml/min/1.73 sqM) 05/07/17 07:35 Est GFR (MDRD) Non-Af >60 (>60 ml/min/1.73 sqM) 05/07/17 07:35 Glucose 138 mg/dL (74-99) H 05/07/17 07:35 POC Glucose (mg/dL) 196 mg/dL (75-99) H 05/07/17 16:30 POC Glu Manager Telemarketing ID Kathy Shah Lanie 05/07/17 16:[address] Glu mg/dL 80 mg/dL 05/02/17 02:30 Hemoglobin A1c 4.4 % (4.2-6.1) 05/02/17 02:30 Calcium 8.5 mg/dL (8.4-10.2) 05/07/17 07:35 Phosphorus 4.6 mg/dL (2.5-4.5) H 05/02/17 02:30 Magnesium 1.7 mg/dL (1.6-2.3) 05/03/17 07:15 Total Bilirubin 0.5 mg/dL (0.2-1.3) 05/07/17 07:35 AST 23 U/L (14-36) 05/07/17 07:35 ALT 27 U/L (9-52) 05/07/17 07:35 Alkaline Phosphatase 56 U/L (38-126) 05/07/17 07:35 Total Creatine Kinase 90 U/L (30-135) 05/02/17 02:30 CK-MB (CK-2) 4.0 ng/mL (0.0-2.4) H* 05/02/17 02:30 CK-MB (CK-2) Rel Index 4.4 05/02/17 02:30 Troponin I 0.020 ng/mL (0.000-0.034) 05/02/17 02:30 NT-Pro-B Natriuret Pep 8080 pg/mL 05/02/17 02:30 Total Protein 5.6 g/dL (6.3-8.2) L 05/07/17 07:35 Albumin 3.1 g/dL (3.5-5.0) L 05/07/17 07:35 Urine Color Yellow 05/02/17 23:05 Urine Appearance Clear (Clear) 05/02/17 23:05 Urine pH 6.5 (5.0-8.0) 05/02/17 23:05 Ur Specific [place] 1.012 (1.001-1.035) 05/02/17 23:05 Urine Protein Trace (Negative) H 05/02/17 23:05 Urine Glucose (UA) Negative (Negative) 05/02/17 23:05 Urine Ketones Negative (Negative) 05/02/17 23:05 Urine Blood Trace (Negative) H 05/02/17 23:05 Urine Nitrite Negative (Negative) 05/02/17 23:05 Urine Bilirubin Negative (Negative) 05/02/17 23:05 Urine Urobilinogen <2.0 mg/dL (<2.0) 05/02/17 23:05 Ur Leukocyte Esterase Negative (Negative) 05/02/17 23:05 Urine RBC 7 /hpf (0-5) H 05/02/17 23:05 Urine WBC 1 /hpf (0-5) 05/02/17 23:05 Ur Squamous Epith Cells <1 /hpf (0-4) 05/02/17 23:05 Hyaline Casts 101 /lpf (0-2) H 05/02/17 23:05 Urine Mucus Rare /hpf (None) H 05/02/17 23:05 Fluid Source Pleural 05/05/17 16:15 Fluid Color Yellow 05/05/17 16:15 Fluid Appearance Clear 05/05/17 16:15 Fluid RBC 152 /uL 07/13/17 16:15 Fluid Nucleated Cells 33 /uL 05/05/17 16:15 Fluid Polynuclear WBCs 13 % 05/05/17 16:15 Fluid Mononuclear WBCs 87 % 05/05/17 16:15 Body Fluid Glucose Source Pleural Fluid 05/05/17 16:15 Fluid Glucose 159 mg/dL 05/05/17 16:15 Body Fluid Protein Source Pleural Fluid 05/05/17 16:15 Fluid Total Protein 1289.0 mg/dL 05/05/17 16:15 Body Fluid LDH Source Pleural Fluid 05/05/17 16:15 Fluid LDH 105 U/L 05/05/17 16:15 Urine Legionella Ag Not detected (Not detected) 05/02/17 23:05 Mycoplasma pneumon IgG 2.82 INDEX (<=0.90) H 05/03/17 07:15 Mycoplasma pneumon IgM 0.46 INDEX (<=0.90) 05/03/17 07:15 Microbiology 05/02/17 02:30 Blood Blood Culture - Preliminary No Growth after 120 hours 05/05/17 16:15 Pleural Fluid Acid Fast Bacilli Smear - Final 05/05/17 16:15 Pleural Fluid Acid Fast Bacilli Culture - Preliminary 05/05/17 16:15 Pleural Fluid Gram Stain - Preliminary 05/05/17 16:15 Pleural Fluid Body Fluid Culture - Preliminary 05/05/17 18:00 Sputum Gram Stain - Preliminary 05/05/17 16:15 Pleural Fluid Fungal Culture - Preliminary 05/02/17 23:05 Urine,Voided Urine Culture - Final Assessment and Plan (1) COPD (chronic obstructive pulmonary disease) Status: Acute (2) Afib Status: Acute (3) Pleural effusion Narrative/Plan: 57-year-old female who has advanced COPD that is oxygen and inhaled steroid dependent, but continues to smoke. Presents to Hospital feeling increasing shortness of breath. Was associated with increasing amounts of discomfort to her right lower chest especially posterior. Chest ray and ultrasound reveal evidence of an increasing effusion to that area. Potentially will have a thoracentesis. Prior cultures have been negative. No history of MRSA. Given her complex history currently be treating with piperacillin tazobactam and Levaquin until we have further data. Blood cultures are negative so far. Sputum cultures negative so far. Legionella has come back as negative Mycoplasma is positive for old disease nothing acute Thoracentesis has occurred. Fluid is negative for infection but is an exudate is noted by the chemistry. She does feel symptomatically better since this. Has been seen by cardiothoracic surgery with no plans for chest tube placement. Cytology is pending from the thoracentesis. . With current steroid therapy as well as the breathing treatments she is symptomatically improving. The patient does have a stage II area on the coccyx for which the Aquacel silver foam dressing is then applied. Advised to try to not always being is sitting up position to offload some pressure to her coccyx. Status: Acute Code(s): J90 - PLEURAL EFFUSION, NOT ELSEWHERE CLASSIFIED
--- NOTE | 2017-05-07 18:15 | PN ---
DATE OF SERVICE: 05/07/17 The patient was seen on 05/07/17. She continues to have shortness of breath and is slowly improving. On physical examination, respiratory rate is 18. Temperature 97.9, pulse rate 77, blood pressure 143/79. O2 sat on 5 L nasal cannula is 100%. HEENT is unremarkable. Chest revealed decreased breath sounds on the right. Cardiovascular system revealed S1, S2. Abdomen is soft. There is no pedal edema. Chest x-ray shows right sided hydropneumothorax. IMPRESSION: 1. Right sided hydropneumothorax. 2. Status post right thoracentesis. Per cardiothoracic surgery, they will be seeing her as needed and do not think a chest tube is warranted. 3. Right sided pleural effusion, status thoracentesis. 4. Pneumonia, possibly gram negative. 5. Congestive heart failure. 6. Protein calorie malnutrition. Continue current medications which are reviewed. Increase her activity level. Counselled on the need to continue incentive spirometry. [facility]
[2017-05-07] MEDS: ALPRAZolam 0.5 MG TAB PO PRN (20:20)
[2017-05-07] MEDS: ATORVASTATIN 40 MG TAB PO SCH (20:22)
[2017-05-07] MEDS: MONTELUKAST 10 MG TAB PO SCH (20:23)
[2017-05-07 20:50] LABS: Glucose,Whole Blood 317 mg/dL (75-99)
[2017-05-08] MEDS: PIPERACILLIN-TAZOBACTAM 3.375 GM in DEXTROSE/WATER 1 50ML.BAG IVPB SCH ×3 (00:02→15:38)
[2017-05-08] MEDS: HYDROmorphone 1 MG/ML 1 ML SYRINGE IVP PRN ×3 (00:02→15:37)
[2017-05-08] MEDS: methylPREDNISolone SOD SUCCI 40 MG/ML 1 ML VIAL IV SCH ×3 (00:07→17:03)
[2017-05-08] MEDS: SODIUM CHLORIDE 0.9% 1,000 ML IV SCH ×3 (01:39→15:39)
[2017-05-08] MEDS: HYDROcodone/APAP 10-325MG 1 EACH TAB PO PRN ×3 (05:31→17:44)
[2017-05-08] MEDS: LEVOFLOXACIN 750 MG TAB PO SCH (05:36)
--- NOTE | 2017-05-08 07:16 | XR ---
EXAMINATION TYPE: XR chest 1V portable DATE OF EXAM: 05/08/2017 CLINICAL HISTORY: Difficulty breathing and pneumothorax progress study. TECHNIQUE: Single AP portable frontal view of the chest is obtained. COMPARISON: Chest x-ray from one day earlier FINDINGS: There is persistent small to moderate-sized basilar right hydropneumothorax. There is pers istent right apical pneumothorax that is stable. There is right lower lung atelectasis and/or infiltr ate and patchy left basilar atelectasis redemonstrated. Calcifications left lung base correlate with cardiac apical pericardial calcification on recent CT. There is persistent cardiomegaly with left hil ar fullness correlating with enlarged pulmonary arteries on recent CT. No mediastinal shift is seen. Osseous structures are somewhat demineralized. IMPRESSION: Overall stable findings, cardiomegaly with pulmonary artery hypertension and small to m oderate-sized right-sided hydropneumothorax with right greater than left bibasilar atelectasis all re demonstrated. No significant change from one day earlier.
[2017-05-08] MEDS: INSULIN LISPRO (humaLOG) 300 UNIT/3 ML VIAL SQ SCH ×4 (07:48→21:04)
[2017-05-08] MEDS: FUROSEMIDE 40 MG TAB PO SCH ×2 (07:50→21:03)
[2017-05-08] MEDS: POTASSIUM CHLORIDE ER 10 MEQ TAB.ER.PRT PO SCH (07:50)
[2017-05-08] MEDS: DOCUSATE 100 MG CAP PO SCH (07:50)
[2017-05-08] MEDS: ENOXAPARIN 40 MG/0.4 ML SYRINGE SQ SCH ×2 (07:51→21:03)
[2017-05-08 07:54] LABS: Glucose,Whole Blood 161 mg/dL (75-99)
[2017-05-08] MEDS: BUDESONIDE 0.5 MG/2 ML NEBU INHALATION SCH ×2 (09:02→20:40)
[2017-05-08] MEDS: IPRATROPIUM-ALBUTEROL 3 ML NEB INHALATION SCH ×4 (09:02→20:40)
[2017-05-08] MEDS: guaiFENesin 600 MG TABLET.ER PO SCH ×2 (10:23→22:27)
[2017-05-08] MEDS: FERROUS SULFATE 325 MG TAB PO SCH (12:05)
[2017-05-08] MEDS ORDERED: INSULIN LISPRO (humaLOG) 300 UNIT/3 ML VIAL SQ ONE (12:09)
[2017-05-08 12:11] LABS: Glucose,Whole Blood 300 mg/dL (75-99)
--- NOTE | 2017-05-08 15:58 | PN ---
DATE OF SERVICE: 05/08/2017 This is a 57-year-old white female who has multiple medical problems. She has multiple chronic illnesses and she has had several hospitalizations recently. The patient is known to have chronic congestive heart failure and also chronic atrial fibrillation, severe mitral stenosis, chronic obstructive pulmonary disease, diabetes mellitus, severe low back pain, history of renal failure and anemia and the patient was admitted through the emergency room with complaints of severe increasing shortness of breath and admitted with the diagnosis of COPD with acute exacerbation, right pleural effusion, right lower lobe pneumonia and acute on chronic congestive heart failure. Patient was started on IV antibiotics, IV Solu-Medrol and breathing treatments and placed back on her previous medications. Patient was seen by Dr. Hinds in consultation. Patient, with the treatments per pulmonary, status improved but her pleural effusion as getting worse. She had a thoracentesis by Dr. Hinds and the pathology and the cytology reports are pending. Dr. Hinds removed more than a liter of fluid and patient's breathing status improved. Also, she has anemia. She has been placed back on ferrous sulfate and her hemoglobin is starting to improve. The latest hemoglobin is 8.6. Patient was also seen by cardiology associates in consultation and her heart rate is stable, still in atrial fibrillation. Patient is extremely weak, however, did have physical therapy evaluate her for improving her ambulation. Overall prognosis guarded. Will have health and social care teacher start making arrangements for discharge plan. The diagnosis, prognosis and therapeutic plans were discussed in detail with the patient today. [facility] CENTERAnnabel
--- NOTE | 2017-05-08 16:12 | PN ---
DATE OF SERVICE: 05/08/17 The patient was seen again on 05/08/17. She has less shortness of breath. On physical examination, her vital signs reveal blood pressure 155/71, respiratory rate is 16. Pulse rate 77. Temperature 98.1. O2 sat on 5 L by nasal cannula is 100%. HEENT is unremarkable. Chest revealed decreased breath sounds at the right base. Cardiovascular system reveals an S1, S2. No S3 , no S4. Abdomen is soft. There is trace pedal edema. IMPRESSION: 1. Status post right thoracentesis. 2. Right hydropneumothorax for which thoracic surgery does not want to have chest tube placed. 3. Congestive heart failure. 4. Medical debility with protein calorie malnutrition. 5. Possible infection within the pleura. Continue antibiotics per ID. Prognosis guarded. MTDD
[2017-05-08 16:59] LABS: Glucose,Whole Blood 144 mg/dL (75-99)
[2017-05-08] MEDS: ALPRAZolam 0.25 MG TAB PO PRN (19:42)
[2017-05-08 20:16] LABS: Glucose,Whole Blood 206 mg/dL (75-99)
[2017-05-08] MEDS: ATORVASTATIN 40 MG TAB PO SCH (21:03)
[2017-05-08] MEDS: MONTELUKAST 10 MG TAB PO SCH (21:03)
[2017-05-09] MEDS: PIPERACILLIN-TAZOBACTAM 3.375 GM in DEXTROSE/WATER 1 50ML.BAG IVPB SCH ×4 (00:14→23:49)
[2017-05-09] MEDS: methylPREDNISolone SOD SUCCI 40 MG/ML 1 ML VIAL IV SCH ×4 (00:14→23:49)
[2017-05-09] MEDS: HYDROmorphone 1 MG/ML 1 ML SYRINGE IVP PRN ×3 (00:24→16:51)
[2017-05-09] MEDS: traZODone HCL 50 MG TAB PO SCH ×2 (00:27→23:53)
[2017-05-09] MEDS: ALPRAZolam 0.5 MG TAB PO PRN (02:21)
[2017-05-09] MEDS: HYDROcodone/APAP 10-325MG 1 EACH TAB PO PRN ×3 (03:28→20:44)
[2017-05-09 03:39] LABS: Glucose,Whole Blood 219 mg/dL (75-99)
[2017-05-09] MEDS: LEVOFLOXACIN 750 MG TAB PO SCH (05:42)
[2017-05-09 07:24] LABS: Glucose,Whole Blood 182 mg/dL (75-99)
[2017-05-09] MEDS: BUDESONIDE 0.5 MG/2 ML NEBU INHALATION SCH ×2 (07:25→21:30)
[2017-05-09] MEDS: IPRATROPIUM-ALBUTEROL 3 ML NEB INHALATION SCH ×4 (07:25→21:30)
[2017-05-09] MEDS: SODIUM CHLORIDE 0.9% 1,000 ML IV SCH ×2 (07:35→16:51)
--- NOTE | 2017-05-09 07:51 | XR ---
EXAMINATION TYPE: XR chest 1V portable DATE OF EXAM: 05/09/2017 HISTORY: Shortness of breath. COMPARISON: None. TECHNIQUE: Single view of the chest is submitted. FINDINGS: Demonstrated are scattered senescent parenchymal change. Stable partially loculated the right basilar hydropneumothorax. Right apical component is slightly sm aller in size. Stable left pleural-parenchymal opacity at the right lung base. The heart is stable. Hilar and mediastinal structures are within normal limits. Degenerative changes are seen of the dorsal spine. IMPRESSION: 1. Stable partially loculated the right basilar hydropneumothorax. Right apical component is slightl y smaller in size.
[2017-05-09] MEDS: INSULIN LISPRO (humaLOG) 300 UNIT/3 ML VIAL SQ SCH ×4 (08:13→20:45)
[2017-05-09] MEDS: ENOXAPARIN 40 MG/0.4 ML SYRINGE SQ SCH ×2 (09:50→20:44)
[2017-05-09] MEDS: FUROSEMIDE 40 MG TAB PO SCH ×2 (09:50→20:45)
[2017-05-09] MEDS: DIGOXIN 125 MCG TAB PO SCH (09:51)
[2017-05-09] MEDS: DOCUSATE 100 MG CAP PO SCH (09:51)
[2017-05-09] MEDS: POTASSIUM CHLORIDE ER 10 MEQ TAB.ER.PRT PO SCH (09:52)
[2017-05-09] MEDS: guaiFENesin 600 MG TABLET.ER PO SCH ×2 (09:52→20:45)
--- NOTE | 2017-05-09 10:41 | P.PN ---
Subjective 05/02/17 This is a 57-year-old female patient being seen, examined and evaluated. Patient is well-known to our services. This Patient comes in with complaints of shortness of breath that had been increasing over the last few days. The patient does have a significant medical history for CHF, COPD that is severe, chronic persistent asthma but severe, atrial fibrillation, renal insufficiency and liver disease. This patient has a known history for reoccurring pneumonia as well. Patient states she uses 4-5 L of supplemental oxygen at home at all times. Upon examination the patient's resting up in bed on 5 L of supplemental oxygen, she states she has shortness of breath with any minimal exertion as well as extensive conversation. Chest x-ray has been reviewed and shows an increasing right pleural effusion which is associated with atelectasis, possible pulmonary artery hypertension, and congestive heart failure. 05/03/17 upon examination today the patient's resting up in bed and continues to be on 5 L of supplemental oxygen. Patient continues to have shortness of breath with any minimal exertion and extensive conversation. Patient did undergo an ultrasound of the chest yesterday which revealed a right pleural effusion fluid pocket of 10.4 cm this has increased significantly since her last ultrasound of the chest which was done 02/08/2017 which showed a right pleural effusion pocket of 4.2 at that time. During that admission in January the effusion was too small to undergo a thoracentesis. Of note ,since its progression, the patient is a candidate to have the thoracentesis performed in regards to size. However the patient was on Coumadin for chronic A. fib and her INR yesterday was 2.9. Yesterday we discontinued the Coumadin and put the patient on Lovenox in preparation for thoracentesis. A repeat INR was performed today and is currently 3.6. We would like the patient's INR to be closer to 1.4 before we perform the thoracentesis. Repeat labs will be drawn tomorrow. 05/04/17 examination today the patient's resting up in bed and continues on 5 L of supplemental oxygen. Patient states she is a little less short of breath today than previously. However she still continues to have shortness of breath with exertion. Patient's INR today was 3.7, which is still too high to undergo a thoracentesis. Labs have been reviewed. We truly the increase in INR due to the patient being on Levaquin as a side effect. 05/05/17- upon examination today the patient is resting up in bed and continues on the 5 L of supplemental oxygen. The patient's INR today is 1.3 therefore we can go forth with the thoracentesis. The procedure as well as the risk and benefits have been discussed at length with the patient QUESTIONS have been answered. After the thoracentesis is completed the fluid will be sent for lab workup. The patient will be able to start back on her Coumadin tonight. The patient should continue with Lovenox until her INR is more than 1.8. Patient continues to have shortness of breath with exertion. 05/06/17- patient did undergo a thoracentesis yesterday. 1.6 L of clear yellow pleural fluid was removed. It was discovered on the post x-ray at the patient did have a 20% pneumothorax. The patient was asymptomatic at that time. The patient was to be watched closely overnight and have a repeat chest x-ray that evening which was stable and another one this morning which dates show a possible slight increase in the pneumothorax. CT of the chest without contrast was obtained and results are not readily available. We will consult cardiothoracic to follow the patient and interventional radiology to place a pigtail catheter. Upon examination the patient is resting up in bed and despite the pneumothorax the patient states her breathing is better today after having the fluid removed. Patient is still requiring 4-5 L of supplemental oxygen however she said her shortness of breath has decreased. Patient is afebrile no further complaints. 05/07/17 and 05/08/17, please refer to DR. JULIO Gao note, as he covered these days. 05/09/17-upon examination today the patient's resting up in bed on 5 L of supplemental oxygen. Chest x-rays have been reviewed and the patient still has a pneumothorax that has not improved, pneumothorax remains about 30%. Therefore the patient will ultimately require a chest tube placement by interventional radiology. Patient continues to feel short of breath and tight. Today she states she feels slightly worse than yesterday in regards to her breathing. We'll recheck her CBC CMP and PT/INR. Patient has had her Coumadin on hold since pneumothorax and she has been receiving Lovenox. Objective - Vital Signs Vital signs: Vital Signs Temp 97.6 F 05/09/17 07:00 Pulse 76 07/17/17 08:00 Resp 16 05/09/17 08:00 BP 137/81 05/09/17 07:00 Pulse Ox 96 05/09/17 07:26 Intake & Output 05/08/17 05/09/17 05/09/17 18:59 06:59 18:59 Intake Total 1250 50 480 Output Total 6625 1400 Balance -5375 -1350 480 Weight 48.5 kg 48.5 kg 48.5 kg Intake: Intake, IV Titration 50 50 Amount Piperacillin-Tazobactam 3 50 50 .375 gm In Dextrose/Water 1 50ml.bag @ 12.5 mls/hr IVPB Q8HR [facility] Rx#: [id number] Oral 1200 480 Output: Urine 6625 1400 Uretheral ([place]) 2000 1400 Other: Voiding Method Indwelling Catheter Indwelling Catheter Indwelling Catheter # Voids 1 1 # Bowel Movements 1 1 - Exam GENERAL EXAM: Alert, cachectic, comfortable in no apparent distress. HEAD: Normocephalic. EYES: Normal reaction of pupils, equal size. NOSE: Clear with pink turbinates. THROAT: No erythema or exudates. NECK: No masses, no JVD. CHEST: No chest wall deformity. LUNGS: Poor air entry is present, scattered rhonchi as well as expiratory wheezes noted throughout. Decreased breath sounds on the right base, however slightly improved from yesterday. CVS: S1 and S2 normal with no audible mumurs, regular rhythm. ABDOMEN: No hepatosplenomegaly, normal bowel sounds, no guarding or rigidity. EXTREMITIES: Trace edema noted, pedal pulses palpable. SKIN: No rashes, dressing in place to coccyx wound CENTRAL NERVOUS SYSTEM: No focal deficits, tone is normal in all 4 extremities. - Labs CBC & Chem 7: 05/07/17 07:35 05/07/17 07:35 Labs: Abnormal Lab Results - Last 24 Hours (Table) 05/08/17 05/08/17 05/08/17 Range/Units 12:05 16:57 20:11 POC Glucose (mg/dL) 300 H 144 H 206 H (75-99) mg/dL 05/09/17 05/09/17 Range/Units 03:27 07:17 POC Glucose (mg/dL) 219 H 182 H (75-99) mg/dL Microbiology - Last 24 Hours (Table) 05/05/17 16:15 Gram Stain - Preliminary Pleural Fluid Body Fluid Culture - Preliminary 05/05/17 18:00 Gram Stain - Final Sputum Sputum Culture - Final Corynebacterium striatum Assessment and Plan Plan: Assessment Right-sided pneumothorax Right-sided pleural effusion with right sided pneumonia suspect mixed/gram- negative in nature Acute exacerbation of chronic obstructive pulmonary disease Acute on chronic hypoxic respiratory failure Congestive heart failure Probable pulmonary hypertension Atrial fibrillation Chronic anemia Severe protein calorie malnutrition Plan Medications have been reviewed and will be continued as ordered. Interventional radiology has been consulted to place pigtail catheter/chest tube. We will continue to monitor the pneumothorax. Repeat labs today. Consult to cardiothoracic surgeon is in place to follow the patient. Due to the pneumothorax we will continue to hold the patient's Coumadin at this time and continue on the Lovenox. Pleural fluid has been sent for lab workup. Continue with Solu-Medrol and budesonide as well as Mucinex. Repeat labs in the morning. Cardiology on consult for probable pulmonary hypertension and CHF. Infectious disease on consult. Continue with pulmonary hygiene, coughing and deep breathing exercises, and supportive care. Supplemental oxygen to maintain oxygen saturations of 92% or better. Continue nebulizer treatments. GI and DVT prophylaxis. We will add ensure 3 times a day with meals. We will continue to monitor labs/results and adjust treatment as necessary. Further recommendations pending. I performed an examination of the patient and discussed their management with the nurse practitioner. I have reviewed the nurse practitioner's note and agree with the documented findings and plan of care.
[2017-05-09 11:22] LABS: Anisocytosis Slight; Basophils % (A) 0 %; CH 19.1; CHCM 27.2; Eosinophils # (A) 0.1 k/uL (0-0.7); Eosinophils % (A) 0 %; HCT 31.7 % (34.0-46.0); HDW 3.51; HGB 8.9 gm/dL (11.4-16.0); Hypochromasia Marked; Luc # (Auto) 0.14; Luc % (Auto) 1; Lymphocytes # (A) 1.2 k/uL (1.0-4.8); Lymphocytes % (A) 7 %; MCH 19.7 pg (25.0-35.0); MCHC 27.9 g/dL (31.0-37.0); MCV 70.5 fL (80.0-100.0); Mean Platelet Volume 7.8; Microcytosis Moderate; Monocytes # (A) 0.6 k/uL (0-1.0); Monocytes % (A) 4 %; Neutrophils # (A) 15.3 k/uL (1.3-7.7); Neutrophils % (A) 88 %; Poikilocytosis Slight; RDW 16.2 % (11.5-15.5); WBC 17.4 k/uL (3.8-10.6); WBC (Perox) 18.54
[2017-05-09 11:34] LABS: ALT 34 U/L (9-52); AST 24 U/L (14-36); Alkaline Phosphatase 78 U/L (38-126); Anion Gap 10 mmol/L; Blood Urea Nitrogen 40 mg/dL (7-17); Calcium 8.7 mg/dL (8.4-10.2); Carbon Dioxide 34 mmol/L (22-30); Chloride 89 mmol/L (98-107); Glucose 319 mg/dL (74-99); Non-African American GFR(MDRD) >60 (>60 ml/min/1.73 sqM); Potassium 4.2 mmol/L (3.5-5.1); Sodium 133 mmol/L (137-145); Total Bilirubin 0.5 mg/dL (0.2-1.3); Total Protein 5.6 g/dL (6.3-8.2)
[2017-05-09 11:39] LABS: INR 1.2 (<1.2); Prothrombin Time 11.5 sec (9.0-12.0)
[2017-05-09 12:13] LABS: Glucose,Whole Blood 312 mg/dL (75-99)
[2017-05-09] MEDS: FERROUS SULFATE 325 MG TAB PO SCH (12:48)
[2017-05-09 16:50] LABS: Glucose,Whole Blood 197 mg/dL (75-99)
--- NOTE | 2017-05-09 19:28 | PN ---
DATE OF SERVICE: 05/09/17 This 57 year old white female was admitted with increasing shortness of breath and general weakness. The patient was found to have chronic obstructive pulmonary disease with acute exacerbation and right pleural effusion and right lower lobe pneumonia. The patient also has acute on chronic congestive heart failure, known to have chronic atrial fibrillation and very severe mitral stenosis. She also has low back pain and diabetes mellitus. The patient was seen by [facility] in consultation and she was treated aggressively with diuretics and she was placed back on her ( ) medications. The patient also was seen by Dr. Hinds in consultation. Dr. Hinds did thoracentesis and removed more than a liter of fluid and the patient was feeling slightly better after that. Today's x-ray shows low platelets, pleural effusion and apparently Dr. Hinds is going to do another thoracentesis tomorrow. Otherwise, the patient' s vital signs are stable. Hemoglobin is improving. Today it is 8.9. She is on ( ). The patient is still extremely weak and she is getting physical therapy to improve her muscle strength and ambulation. Prognosis is guarded. [facility]
--- NOTE | 2017-05-09 19:35 | P.PN ---
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 Became profoundly weak. Was also having increasing amounts of pain to the right lower side of her chest. Because the she presented to the emergency center. Telemetry was some steroids and respiratory treatments and this has helped her as well as pain medications. She has less short of breath at the moment and she wasn't admission. But still is quite miserable. She sitting upright sitting forward relates this gives her some relief of the discomfort she has in her right lower chest toward the back. She is still short of breath compared to her baseline. She has no hemoptysis but does have a mild cough at times. She is not having significant sputum Production. He is feeling slightly better since the thoracentesis. Has been seen by cardiothoracic surgery with no plans for chest tube for her mild hydro-pneumothorax Objective - Vital Signs Vital signs: Vital Signs Temp 97.8 F 05/09/17 15:00 Pulse 78 05/09/17 16:32 Resp 16 05/09/17 16:00 BP 101/64 05/09/17 15:00 Pulse Ox 99 05/09/17 15:00 Intake & Output 05/09/17 05/09/17 05/10/17 06:59 18:59 06:59 Intake Total 50 1670 Output Total 1400 700 Balance -1350 970 Weight 48.5 kg 48.5 kg Intake: Intake, IV Titration 50 750 Amount Piperacillin-Tazobactam 3 50 50 .375 gm In Dextrose/Water 1 50ml.bag @ 12.5 mls/hr IVPB Q8HR [facility] Rx#: [id number] Sodium Chloride 0.9% 1, 700 000 ml @ 100 mls/hr IV . Q10H [facility] Rx#:[id number] Oral 920 Output: Urine 1400 700 Uretheral ([place]) 1400 700 Other: Voiding Method Indwelling Catheter Indwelling Catheter # Voids 1 # Bowel Movements 1 1 - Exam 57-year-old woman who looks much older than her stated age. She is chronically ill. HEENT: Anicteric conjunctiva are pink and moist nasal mucosa grossly intact without significant lesions, there is no thrush. Poor dentition Neck: The neck is supple without significant lymphadenopathy or thyromegaly. Lungs: Symmetrical air entry with wheezes scattered throughout the lung iqbal. Evidence of decreased breath sounds breath sounds to the right base. The extensive dullness and egophony to the right base has resolved Heart: irregular no S3 loud S4 There is no significant murmur click or rub, PMI was nondisplaced. Abdomen: Positive bowel sounds soft and nontender without palpable masses or organomegaly. There was no guarding or rebound. Extremities: The extremities have just trace edema. She has no tenderness over the joints. Skin the patient has changes of diabetes her lower extremities however she has a difficulty with chronically picking at her skin and has innumerable lesions that healed over arms and legs at this time. None of them are open are grossly draining at this time is evidence of some erythema to the coccyx. With this the Aquacel silver dressing has been applied. It has the foam border. Neuro: She is awake alert oriented to person place and time and does not exhibit any acute gross focal sensory motor deficits - Labs CBC & Chem 7: 05/09/17 10:56 05/09/17 10:56 Labs: Abnormal Lab Results - Last 24 Hours (Table) 05/08/17 05/09/17 05/09/17 Range/Units 20:11 03:27 07: WBC (3.8-10.6) k/uL Hgb (11.4-16.0) gm/dL Hct (34.0-46.0) % MCV (80.0-100.0) fL MCH (25.0-35.0) pg MCHC (31.0-37.0) g/dL RDW (11.5-15.5) % Neutrophils # (1.3-7.7) k/uL INR (<1.2) Sodium (137-145) mmol/L Chloride (98-107) mmol/L Carbon Dioxide (22-30) mmol/L BUN (7-17) mg/dL Glucose (74-99) mg/dL POC Glucose (mg/dL) 206 H 219 H 182 H (75-99) mg/dL Total Protein (6.3-8.2) g/dL Albumin (3.5-5.0) g/dL 05/09/17 05/09/17 05/09/17 Range/Units 10:56 10:56 10:56 WBC 17.4 H (3.8-10.6) k/uL Hgb 8.9 L (11.4-16.0) gm/dL Hct 31.7 L (34.0-46.0) % MCV 70.5 L (80.0-100.0) fL MCH 19.7 L (25.0-35.0) pg MCHC 27.9 L (31.0-37.0) g/dL RDW 16.2 H (11.5-15.5) % Neutrophils # 15.3 H (1.3-7.7) k/uL INR 1.2 H (<1.2) Sodium 133 L (137-145) mmol/L Chloride 89 L (98-107) mmol/L Carbon Dioxide 34 H (22-30) mmol/L BUN 40 H (7-17) mg/dL Glucose 319 H (74-99) mg/dL POC Glucose (mg/dL) (75-99) mg/dL Total Protein 5.6 L (6.3-8.2) g/dL Albumin 3.2 L (3.5-5.0) g/dL 05/09/17 05/09/17 Range/Units 12:05 16:43 WBC (3.8-10.6) k/uL Hgb (11.4-16.0) gm/dL Hct (34.0-46.0) % MCV (80.0-100.0) fL MCH (25.0-35.0) pg MCHC (31.0-37.0) g/dL RDW (11.5-15.5) % Neutrophils # (1.3-7.7) k/uL INR (<1.2) Sodium (137-145) mmol/L Chloride (98-107) mmol/L Carbon Dioxide (22-30) mmol/L BUN (7-17) mg/dL Glucose (74-99) mg/dL POC Glucose (mg/dL) 312 H 197 H (75-99) mg/dL Total Protein (6.3-8.2) g/dL Albumin (3.5-5.0) g/dL Microbiology - Last 24 Hours (Table) 05/05/17 16:15 Gram Stain - Final Pleural Fluid Body Fluid Culture - Final - Imaging and Cardiology Chest x-ray: image reviewed (Ongoing hydropneumothorax) Assessment and Plan (1) COPD (chronic obstructive pulmonary disease) Status: Acute (2) Afib Status: Acute (3) Pleural effusion Narrative/Plan: 57-year-old female who has advanced COPD that is oxygen and inhaled steroid dependent, but continues to smoke. Presents to Hospital feeling increasing shortness of breath. Was associated with increasing amounts of discomfort to her right lower chest especially posterior. Chest ray and ultrasound reveal evidence of an increasing effusion to that area. Potentially will have a thoracentesis. Prior cultures have been negative. No history of MRSA. Given her complex history currently be treating with piperacillin tazobactam and Levaquin until we have further data. Blood cultures are negative so far. Sputum cultures negative so far. Legionella has come back as negative Mycoplasma is positive for old disease nothing acute Thoracentesis has occurred. Fluid is negative for infection but is an exudate is noted by the chemistry. She does feel symptomatically better since this. Has been seen by cardiothoracic surgery with no plans for surgery surgery. Cytology is negative for malignancy from the thoracentesis. Radiology consult has been requested for the pigtail Pleur-evac catheter . With current steroid therapy as well as the breathing treatments she is symptomatically improving. The patient does have a stage II area on the coccyx for which the Aquacel silver foam dressing is then applied. Advised to try to not always being is sitting up position to offload some pressure to her coccyx. Status: Acute Code(s): J90 - PLEURAL EFFUSION, NOT ELSEWHERE CLASSIFIED
[2017-05-09 20:21] LABS: Glucose,Whole Blood 240 mg/dL (75-99)
[2017-05-09] MEDS: ATORVASTATIN 40 MG TAB PO SCH (20:45)
[2017-05-09] MEDS: MONTELUKAST 10 MG TAB PO SCH (20:45)
[2017-05-10] MEDS: HYDROmorphone 1 MG/ML 1 ML SYRINGE IVP PRN ×4 (00:54→23:11)
[2017-05-10] MEDS: ALPRAZolam 0.5 MG TAB PO PRN ×2 (01:06→23:11)
[2017-05-10] MEDS: BUDESONIDE 0.5 MG/2 ML NEBU INHALATION SCH ×2 (06:59→20:21)
[2017-05-10] MEDS: IPRATROPIUM-ALBUTEROL 3 ML NEB INHALATION SCH ×4 (06:59→20:21)
[2017-05-10] MEDS: SODIUM CHLORIDE 0.9% 1,000 ML IV SCH ×3 (07:15→22:16)
[2017-05-10 07:16] LABS: Glucose,Whole Blood 195 mg/dL (75-99)
[2017-05-10] MEDS: INSULIN LISPRO (humaLOG) 300 UNIT/3 ML VIAL SQ SCH ×4 (07:22→21:13)
[2017-05-10] MEDS: LEVOFLOXACIN 750 MG TAB PO SCH (07:23)
[2017-05-10] MEDS: methylPREDNISolone SOD SUCCI 40 MG/ML 1 ML VIAL IV SCH ×3 (07:25→23:11)
[2017-05-10] MEDS: PIPERACILLIN-TAZOBACTAM 3.375 GM in DEXTROSE/WATER 1 50ML.BAG IVPB SCH ×3 (07:28→23:11)
--- NOTE | 2017-05-10 07:30 | XR ---
EXAMINATION TYPE: XR chest 1V portable DATE OF EXAM: 05/10/2017 HISTORY: pntx right. REFERENCE: Previous study dated 05/09/2017. FINDINGS: Lung volumes are prominent. There is a loculated pneumothorax on the right, unchanged from previous. The apical component continu es to decrease in size. There is a right-sided effusion. Right basilar airspace disease. There are ca lcified granulomas in the left lung. The heart is enlarged. IMPRESSION: 1. COPD. 2. CARDIOMEGALY. 3. CONTINUING LOCULATED PNEUMOTHORAX ON THE RIGHT. THE APICAL COMPONENT CONTINUES TO DECREASE IN SIZE . 4 RIGHT-SIDED EFFUSION AND RIGHT BASILAR AIRSPACE DISEASE.
--- NOTE | 2017-05-10 09:56 | CT ---
EXAMINATION TYPE: CT chest tube insertion DATE OF EXAM: 05/10/2017 COMPARISON: NONE HISTORY: Chest tube insertion CT DLP: 643 mGycm The procedure is discussed with the patient, the risks, complications, benefits and alternatives, wer e discussed and any questions were answered. Informed consent was obtained. The patient is placed s upine on the CT table, prepped and draped in the usual sterile fashion. Utilizing a 22-gauge Chiba needle access into the right pleural space was achieved and there is place ment of a guidewire. Subsequent serial dilation to 8 Armenian with an 8 Armenian drainage catheter placed over a guidewire. Repeat imaging demonstrated ideal placement of drainage catheter. All elements of maximal barrier and sterile technique were utilized. The patient remained stable throughout the pro cedure with no immediate postprocedural complication. IMPRESSION: 1. Successful CT guided chest tube insertion for loculated pneumothorax.
[2017-05-10] MEDS: HYDROcodone/APAP 10-325MG 1 EACH TAB PO PRN ×2 (10:42→19:15)
[2017-05-10] MEDS: ENOXAPARIN 40 MG/0.4 ML SYRINGE SQ SCH ×2 (10:43→21:12)
[2017-05-10] MEDS: DOCUSATE 100 MG CAP PO SCH (10:43)
[2017-05-10] MEDS: DIGOXIN 125 MCG TAB PO SCH (10:43)
[2017-05-10] MEDS: POTASSIUM CHLORIDE ER 10 MEQ TAB.ER.PRT PO SCH (10:44)
[2017-05-10] MEDS: FUROSEMIDE 40 MG TAB PO SCH ×2 (10:44→21:12)
[2017-05-10] MEDS: guaiFENesin 600 MG TABLET.ER PO SCH ×2 (10:44→21:12)
--- NOTE | 2017-05-10 11:51 | P.PN ---
Subjective 05/02/17 This is a 57-year-old female patient being seen, examined and evaluated. Patient is well-known to our services. This Patient comes in with complaints of shortness of breath that had been increasing over the last few days. The patient does have a significant medical history for CHF, COPD that is severe, chronic persistent asthma but severe, atrial fibrillation, renal insufficiency and liver disease. This patient has a known history for reoccurring pneumonia as well. Patient states she uses 4-5 L of supplemental oxygen at home at all times. Upon examination the patient's resting up in bed on 5 L of supplemental oxygen, she states she has shortness of breath with any minimal exertion as well as extensive conversation. Chest x-ray has been reviewed and shows an increasing right pleural effusion which is associated with atelectasis, possible pulmonary artery hypertension, and congestive heart failure. 05/03/17 upon examination today the patient's resting up in bed and continues to be on 5 L of supplemental oxygen. Patient continues to have shortness of breath with any minimal exertion and extensive conversation. Patient did undergo an ultrasound of the chest yesterday which revealed a right pleural effusion fluid pocket of 10.4 cm this has increased significantly since her last ultrasound of the chest which was done 02/08/2017 which showed a right pleural effusion pocket of 4.2 at that time. During that admission in January the effusion was too small to undergo a thoracentesis. Of note ,since its progression, the patient is a candidate to have the thoracentesis performed in regards to size. However the patient was on Coumadin for chronic A. fib and her INR yesterday was 2.9. Yesterday we discontinued the Coumadin and put the patient on Lovenox in preparation for thoracentesis. A repeat INR was performed today and is currently 3.6. We would like the patient's INR to be closer to 1.4 before we perform the thoracentesis. Repeat labs will be drawn tomorrow. 05/04/17 examination today the patient's resting up in bed and continues on 5 L of supplemental oxygen. Patient states she is a little less short of breath today than previously. However she still continues to have shortness of breath with exertion. Patient's INR today was 3.7, which is still too high to undergo a thoracentesis. Labs have been reviewed. We truly the increase in INR due to the patient being on Levaquin as a side effect. 05/05/17- upon examination today the patient is resting up in bed and continues on the 5 L of supplemental oxygen. The patient's INR today is 1.3 therefore we can go forth with the thoracentesis. The procedure as well as the risk and benefits have been discussed at length with the patient QUESTIONS have been answered. After the thoracentesis is completed the fluid will be sent for lab workup. The patient will be able to start back on her Coumadin tonight. The patient should continue with Lovenox until her INR is more than 1.8. Patient continues to have shortness of breath with exertion. 05/06/17- patient did undergo a thoracentesis yesterday. 1.6 L of clear yellow pleural fluid was removed. It was discovered on the post x-ray at the patient did have a 20% pneumothorax. The patient was asymptomatic at that time. The patient was to be watched closely overnight and have a repeat chest x-ray that evening which was stable and another one this morning which dates show a possible slight increase in the pneumothorax. CT of the chest without contrast was obtained and results are not readily available. We will consult cardiothoracic to follow the patient and interventional radiology to place a pigtail catheter. Upon examination the patient is resting up in bed and despite the pneumothorax the patient states her breathing is better today after having the fluid removed. Patient is still requiring 4-5 L of supplemental oxygen however she said her shortness of breath has decreased. Patient is afebrile no further complaints. 05/07/17 and 05/08/17, please refer to DR. JULIO Gao note, as he covered these days. 05/09/17-upon examination today the patient's resting up in bed on 5 L of supplemental oxygen. Chest x-rays have been reviewed and the patient still has a pneumothorax that has not improved, pneumothorax remains about 30%. Therefore the patient will ultimately require a chest tube placement by interventional radiology. Patient continues to feel short of breath and tight. Today she states she feels slightly worse than yesterday in regards to her breathing. We'll recheck her CBC CMP and PT/INR. Patient has had her Coumadin on hold since pneumothorax and she has been receiving Lovenox. 05/10/17- on examination today the patient has just came back from interventional radiology after pigtail chest tube insertion. There is approximately 300 ML's of serosanguineous drainage noted upon arrival and the pleural VAC has not been attached to suction yet at this time. Patient will be hooked up to wall suction. Patient states that this initially received the chest tube she had immediate relief in her shortness of breath which decreased significantly. Patient states she is breathing much better post procedure. Patient is noted to be sitting up in bed and continues on 5 L of supplemental oxygen. Labs and radiology reports have been reviewed. Objective - Vital Signs Vital signs: Vital Signs Temp 97.9 F 05/10/17 07:00 Pulse 92 05/10/17 11:38 Resp 16 05/10/17 09:35 BP 123/74 05/10/17 09:35 Pulse Ox 100 05/10/17 09:35 Intake & Output 05/09/17 05/10/17 05/10/17 18:59 06:59 18:59 Intake Total 1670 200 Output Total 964 718 8891 Balance 970 -500 -2900 Weight 48.5 kg 49 kg 49 kg Intake: Intake, IV Titration 750 Amount Piperacillin-Tazobactam 3 50 .375 gm In Dextrose/Water 1 50ml.bag @ 12.5 mls/hr IVPB Q8HR MARY CARMEN Rx#: [id number] Sodium Chloride 0.9% 1, 700 000 ml @ 100 mls/hr IV . Q10H MARY CARMEN Rx#:[id number] Oral 920 200 Output: Urine 041 976 1140 Uretheral ([place]) 700 700 700 Other: Voiding Method Indwelling Catheter Indwelling Catheter Indwelling Catheter # Voids 1 # Bowel Movements 1 1 1 - Exam GENERAL EXAM: Alert, cachectic, comfortable in no apparent distress. HEAD: Normocephalic. EYES: Normal reaction of pupils, equal size. NOSE: Clear with pink turbinates. THROAT: No erythema or exudates. NECK: No masses, no JVD. CHEST: No chest wall deformity. LUNGS: Poor air entry is present, scattered rhonchi as well as expiratory wheezes noted throughout. Decreased breath sounds on the right base, however slightly improved from yesterday. Right-sided pigtail chest tube in place. CVS: S1 and S2 normal with no audible mumurs, regular rhythm. ABDOMEN: No hepatosplenomegaly, normal bowel sounds, no guarding or rigidity. EXTREMITIES: Trace edema noted, pedal pulses palpable. SKIN: No rashes, dressing in place to coccyx wound CENTRAL NERVOUS SYSTEM: No focal deficits, tone is normal in all 4 extremities. - Labs CBC & Chem 7: 05/09/17 10:56 05/09/17 10:56 Labs: Abnormal Lab Results - Last 24 Hours (Table) 05/09/17 05/09/17 05/09/17 Range/Units 12:05 16:43 20:17 POC Glucose (mg/dL) 312 H 197 H 240 H (75-99) mg/dL 05/10/17 Range/Units 07:05 POC Glucose (mg/dL) 195 H (75-99) mg/dL Microbiology - Last 24 Hours (Table) 05/05/17 16:15 Gram Stain - Final Pleural Fluid Body Fluid Culture - Final Assessment and Plan Plan: Assessment Right-sided pneumothorax Right-sided pleural effusion with right sided pneumonia suspect mixed/gram- negative in nature Acute exacerbation of chronic obstructive pulmonary disease Acute on chronic hypoxic respiratory failure Congestive heart failure Probable pulmonary hypertension Atrial fibrillation Chronic anemia Severe protein calorie malnutrition Plan Medications have been reviewed and will be continued as ordered. Interventional radiology put him chest tube today, no procedural complications noted. Chest tube to wall suction. We will continue to monitor the pneumothorax. Repeat labs tomorrow. Consult to cardiothoracic surgeon is in place to follow the patient. Due to the pneumothorax we will continue to hold the patient's Coumadin at this time and continue on the Lovenox. Pleural fluid has been sent for lab workup. Continue with Solu-Medrol and budesonide as well as Mucinex. Repeat labs in the morning. Cardiology on consult. Infectious disease on consult. Continue with pulmonary hygiene, coughing and deep breathing exercises, and supportive care. Supplemental oxygen to maintain oxygen saturations of 92% or better. Continue nebulizer treatments. GI and DVT prophylaxis. Ensure 3 times a day with meals. We will continue to monitor labs/results and adjust treatment as necessary. Further recommendations pending. I performed an examination of the patient and discussed their management with the nurse practitioner. I have reviewed the nurse practitioner's note and agree with the documented findings and plan of care.
[2017-05-10] MEDS: FERROUS SULFATE 325 MG TAB PO SCH (12:18)
[2017-05-10] MEDS: ALPRAZolam 0.25 MG TAB PO PRN (15:20)
[2017-05-10 16:49] LABS: Glucose,Whole Blood 195 mg/dL (75-99)
--- NOTE | 2017-05-10 16:49 | PN ---
DATE OF SERVICE: 05/10/2017 This is a 57-year-old white female who was admitted with severe shortness of breath and general weakness. She was admitted with a diagnosis of COPD with acute exacerbation, right pleural effusion and right lower lobe infiltrate and chronic atrial fibrillation with acute on chronic congestive heart failure, severe mitral stenosis, diabetes mellitus and chronic anemia. Patient received a blood transfusion and still her hemoglobin is low. It is 8.9. She has been placed on ferrous sulfate and hemoglobin remains stable and gradually improving. Patient was seen by [facility] in consultation. She was treated aggressively with diuretics. Patient's pulmonary status is improving. She is also getting IV Solu-Medrol, updraft treatments and IV antibiotics. Dr. Hinds did a thoracentesis and removed more than a liter of fluid. Following this, patient developed hydropneumothorax. That was also drained, but the loculated fluid remained, and it was gradually increasing in size. Today patient had a chest tube inserted because of the hydropneumothorax. Patient tolerated the procedure well. The tube is being drained. Patient seems to be more comfortable now. Vital signs are otherwise stable. Heart is in atrial fibrillation with controlled ventricular rate. Patient says that her appetite is also improving. The overall prognosis is guarded. Will continue to monitor the hydropneumothorax. The radiochemical technician and respiratory coordinator are still following the patient. [facility]
[2017-05-10 20:50] LABS: Glucose,Whole Blood 217 mg/dL (75-99)
[2017-05-10] MEDS: MONTELUKAST 10 MG TAB PO SCH (21:12)
[2017-05-10] MEDS: ATORVASTATIN 40 MG TAB PO SCH (21:13)
[2017-05-10] MEDS: CYCLOBENZAPRINE 10 MG TAB PO PRN (22:15)
[2017-05-10] MEDS: traZODone HCL 50 MG TAB PO SCH (23:57)
[2017-05-11] MEDS: HYDROcodone/APAP 10-325MG 1 EACH TAB PO PRN ×4 (02:00→22:41)
[2017-05-11] MEDS: LEVOFLOXACIN 750 MG TAB PO SCH (06:14)
[2017-05-11] MEDS: IPRATROPIUM-ALBUTEROL 3 ML NEB INHALATION SCH ×4 (07:03→19:41)
[2017-05-11] MEDS: BUDESONIDE 0.5 MG/2 ML NEBU INHALATION SCH ×2 (07:03→19:41)
[2017-05-11 07:09] LABS: Glucose,Whole Blood 276 mg/dL (75-99)
[2017-05-11] MEDS: PIPERACILLIN-TAZOBACTAM 3.375 GM in DEXTROSE/WATER 1 50ML.BAG IVPB SCH ×3 (07:14→23:37)
[2017-05-11] MEDS: HYDROmorphone 1 MG/ML 1 ML SYRINGE IVP PRN ×3 (07:17→23:36)
[2017-05-11] MEDS: INSULIN LISPRO (humaLOG) 300 UNIT/3 ML VIAL SQ SCH ×4 (07:18→21:49)
[2017-05-11] MEDS: methylPREDNISolone SOD SUCCI 40 MG/ML 1 ML VIAL IV SCH ×3 (07:20→23:36)
[2017-05-11] MEDS: SODIUM CHLORIDE 0.9% 1,000 ML IV SCH ×2 (07:20→20:00)
[2017-05-11] MEDS: DIGOXIN 125 MCG TAB PO SCH (07:34)
[2017-05-11] MEDS: FUROSEMIDE 40 MG TAB PO SCH ×2 (07:35→21:49)
[2017-05-11] MEDS: DOCUSATE 100 MG CAP PO SCH (07:35)
[2017-05-11] MEDS: guaiFENesin 600 MG TABLET.ER PO SCH ×2 (07:35→21:49)
[2017-05-11] MEDS: POTASSIUM CHLORIDE ER 10 MEQ TAB.ER.PRT PO SCH (07:35)
[2017-05-11] MEDS: ENOXAPARIN 40 MG/0.4 ML SYRINGE SQ SCH ×2 (07:36→21:49)
[2017-05-11 07:46] LABS: Anisocytosis Slight; Basophils % (A) 0 %; CH 19.2; CHCM 27.9; Eosinophils % (A) 0 %; HCT 30.2 % (34.0-46.0); HDW 3.36; HGB 8.3 gm/dL (11.4-16.0); Hypochromasia Marked; Luc # (Auto) 0.24; Luc % (Auto) 1; Lymphocytes # (A) 1.6 k/uL (1.0-4.8); Lymphocytes % (A) 8 %; MCH 19.1 pg (25.0-35.0); MCHC 27.6 g/dL (31.0-37.0); MCV 69.3 fL (80.0-100.0); Mean Platelet Volume 7.9; Microcytosis Marked; Monocytes % (A) 5 %; Neutrophils # (A) 17.2 k/uL (1.3-7.7); Neutrophils % (A) 86 %; RBC 4.36 m/uL (3.80-5.40); RDW 16.2 % (11.5-15.5); WBC (Perox) 20.66
[2017-05-11 08:05] LABS: INR 1.1 (<1.2); Prothrombin Time 11.1 sec (9.0-12.0)
[2017-05-11 08:16] LABS: ALT 39 U/L (9-52); AST 34 U/L (14-36); Alkaline Phosphatase 88 U/L (38-126); Blood Urea Nitrogen 53 mg/dL (7-17); Calcium 8.7 mg/dL (8.4-10.2); Chloride 89 mmol/L (98-107); Glucose 213 mg/dL (74-99); Non-African American GFR(MDRD) >60 (>60 ml/min/1.73 sqM); Potassium 4.4 mmol/L (3.5-5.1); Sodium 135 mmol/L (137-145); Total Bilirubin 0.4 mg/dL (0.2-1.3); Total Protein 5.3 g/dL (6.3-8.2)
[2017-05-11 08:41] LABS: Anion Gap 8 mmol/L; Carbon Dioxide 38 mmol/L (22-30)
[2017-05-11 12:11] LABS: Glucose,Whole Blood 216 mg/dL (75-99)
--- NOTE | 2017-05-11 12:48 | P.PN ---
Subjective 05/02/17 This is a 57-year-old female patient being seen, examined and evaluated. Patient is well-known to our services. This Patient comes in with complaints of shortness of breath that had been increasing over the last few days. The patient does have a significant medical history for CHF, COPD that is severe, chronic persistent asthma but severe, atrial fibrillation, renal insufficiency and liver disease. This patient has a known history for reoccurring pneumonia as well. Patient states she uses 4-5 L of supplemental oxygen at home at all times. Upon examination the patient's resting up in bed on 5 L of supplemental oxygen, she states she has shortness of breath with any minimal exertion as well as extensive conversation. Chest x-ray has been reviewed and shows an increasing right pleural effusion which is associated with atelectasis, possible pulmonary artery hypertension, and congestive heart failure. 05/03/17 upon examination today the patient's resting up in bed and continues to be on 5 L of supplemental oxygen. Patient continues to have shortness of breath with any minimal exertion and extensive conversation. Patient did undergo an ultrasound of the chest yesterday which revealed a right pleural effusion fluid pocket of 10.4 cm this has increased significantly since her last ultrasound of the chest which was done 02/08/2017 which showed a right pleural effusion pocket of 4.2 at that time. During that admission in January the effusion was too small to undergo a thoracentesis. Of note ,since its progression, the patient is a candidate to have the thoracentesis performed in regards to size. However the patient was on Coumadin for chronic A. fib and her INR yesterday was 2.9. Yesterday we discontinued the Coumadin and put the patient on Lovenox in preparation for thoracentesis. A repeat INR was performed today and is currently 3.6. We would like the patient's INR to be closer to 1.4 before we perform the thoracentesis. Repeat labs will be drawn tomorrow. 05/04/17 examination today the patient's resting up in bed and continues on 5 L of supplemental oxygen. Patient states she is a little less short of breath today than previously. However she still continues to have shortness of breath with exertion. Patient's INR today was 3.7, which is still too high to undergo a thoracentesis. Labs have been reviewed. We truly the increase in INR due to the patient being on Levaquin as a side effect. 05/05/17- upon examination today the patient is resting up in bed and continues on the 5 L of supplemental oxygen. The patient's INR today is 1.3 therefore we can go forth with the thoracentesis. The procedure as well as the risk and benefits have been discussed at length with the patient QUESTIONS have been answered. After the thoracentesis is completed the fluid will be sent for lab workup. The patient will be able to start back on her Coumadin tonight. The patient should continue with Lovenox until her INR is more than 1.8. Patient continues to have shortness of breath with exertion. 05/06/17- patient did undergo a thoracentesis yesterday. 1.6 L of clear yellow pleural fluid was removed. It was discovered on the post x-ray at the patient did have a 20% pneumothorax. The patient was asymptomatic at that time. The patient was to be watched closely overnight and have a repeat chest x-ray that evening which was stable and another one this morning which dates show a possible slight increase in the pneumothorax. CT of the chest without contrast was obtained and results are not readily available. We will consult cardiothoracic to follow the patient and interventional radiology to place a pigtail catheter. Upon examination the patient is resting up in bed and despite the pneumothorax the patient states her breathing is better today after having the fluid removed. Patient is still requiring 4-5 L of supplemental oxygen however she said her shortness of breath has decreased. Patient is afebrile no further complaints. 05/07/17 and 05/08/17, please refer to DR. JULIO Gao note, as he covered these days. 05/09/17-upon examination today the patient's resting up in bed on 5 L of supplemental oxygen. Chest x-rays have been reviewed and the patient still has a pneumothorax that has not improved, pneumothorax remains about 30%. Therefore the patient will ultimately require a chest tube placement by interventional radiology. Patient continues to feel short of breath and tight. Today she states she feels slightly worse than yesterday in regards to her breathing. We'll recheck her CBC CMP and PT/INR. Patient has had her Coumadin on hold since pneumothorax and she has been receiving Lovenox. 05/10/17- on examination today the patient has just came back from interventional radiology after pigtail chest tube insertion. There is approximately 300 ML's of serosanguineous drainage noted upon arrival and the pleural VAC has not been attached to suction yet at this time. Patient will be hooked up to wall suction. Patient states that this initially received the chest tube she had immediate relief in her shortness of breath which decreased significantly. Patient states she is breathing much better post procedure. Patient is noted to be sitting up in bed and continues on 5 L of supplemental oxygen. Labs and radiology reports have been reviewed. 05/11/17- upon examination today the patient is resting up in bed and states she feels better today. Patient continues on 5 L of supplemental oxygen. Patient still has her chest tube in and has had approximately 700 ML's of serosanguineous output total since it was inserted. Her appetite has improved slightly as well. Patient states she is much more comfortable today. She continues on IV Solu-Medrol, updrafts and antibiotics. Objective - Vital Signs Vital signs: Vital Signs Temp 97.7 F 05/11/17 07:00 Pulse 84 05/11/17 11:40 Resp 16 05/11/17 08:00 BP 108/61 05/11/17 07:00 Pulse Ox 100 05/11/17 07:00 Intake & Output 05/10/17 05/11/17 05/11/17 18:59 06:59 18:59 Intake Total 900 1529 Output Total 6300 5100 120 Balance -5400 -3571 -120 Weight 49 kg 47.5 kg Intake: Intake, IV Titration 750 829 Amount Piperacillin-Tazobactam 3 50 50 .375 gm In Dextrose/Water 1 50ml.bag @ 12.5 mls/hr IVPB Q8HR MARY CARMEN Rx#: [id number] Sodium Chloride 0.9% 1, 700 779 000 ml @ 100 mls/hr IV . Q10H MARY CARMEN Rx#:[id number] Oral 150 700 Output: Chest Tube Drainage 500 600 120 Chest Tube Right Lateral 500 600 120 Chest Urine 5800 4500 Uretheral ([place]) 1400 1800 Other: Voiding Method Indwelling Catheter Indwelling Catheter Indwelling Catheter # Voids 1 2 1 # Bowel Movements 1 2 - Exam GENERAL EXAM: Alert, cachectic, comfortable in no apparent distress. HEAD: Normocephalic. EYES: Normal reaction of pupils, equal size. NOSE: Clear with pink turbinates. THROAT: No erythema or exudates. NECK: No masses, no JVD. CHEST: No chest wall deformity. LUNGS: Poor air entry is present, scattered rhonchi as well as expiratory wheezes noted throughout. Decreased breath sounds on the right base, however slightly improved. Right-sided pigtail chest tube in place. CVS: S1 and S2 normal with no audible mumurs, regular rhythm. ABDOMEN: No hepatosplenomegaly, normal bowel sounds, no guarding or rigidity. EXTREMITIES: Trace edema noted, pedal pulses palpable. SKIN: No rashes, dressing in place to coccyx wound CENTRAL NERVOUS SYSTEM: No focal deficits, tone is normal in all 4 extremities. - Labs CBC & Chem 7: 05/11/17 07:25 05/11/17 07:25 Labs: Abnormal Lab Results - Last 24 Hours (Table) 05/10/17 05/10/17 05/11/17 Range/Units 16:47 20:36 07:07 WBC (3.8-10.6) k/uL Hgb (11.4-16.0) gm/dL Hct (34.0-46.0) % MCV (80.0-100.0) fL MCH (25.0-35.0) pg MCHC (31.0-37.0) g/dL RDW (11.5-15.5) % Neutrophils # (1.3-7.7) k/uL Sodium (137-145) mmol/L Chloride (98-107) mmol/L Carbon Dioxide (22-30) mmol/L BUN (7-17) mg/dL Glucose (74-99) mg/dL POC Glucose (mg/dL) 195 H 217 H 276 H (75-99) mg/dL Total Protein (6.3-8.2) g/dL Albumin (3.5-5.0) g/dL 05/11/17 05/11/17 05/11/17 Range/Units 07:25 07:25 12:03 WBC 20.0 H (3.8-10.6) k/uL Hgb 8.3 L (11.4-16.0) gm/dL Hct 30.2 L (34.0-46.0) % MCV 69.3 L (80.0-100.0) fL MCH 19.1 L (25.0-35.0) pg MCHC 27.6 L (31.0-37.0) g/dL RDW 16.2 H (11.5-15.5) % Neutrophils # 17.2 H (1.3-7.7) k/uL Sodium 135 L (137-145) mmol/L Chloride 89 L (98-107) mmol/L Carbon Dioxide 38 H (22-30) mmol/L BUN 53 H (7-17) mg/dL Glucose 213 H (74-99) mg/dL POC Glucose (mg/dL) 216 H (75-99) mg/dL Total Protein 5.3 L (6.3-8.2) g/dL Albumin 3.1 L (3.5-5.0) g/dL Assessment and Plan Plan: Assessment Right-sided pneumothorax Right-sided pleural effusion with right sided pneumonia suspect mixed/gram- negative in nature Acute exacerbation of chronic obstructive pulmonary disease Acute on chronic hypoxic respiratory failure Congestive heart failure Probable pulmonary hypertension Atrial fibrillation Chronic anemia Severe protein calorie malnutrition Plan Medications have been reviewed and will be continued as ordered. Interventional radiology put him chest tube , no procedural complications noted. Chest tube to wall suction. We will continue to monitor the pneumothorax. Repeat labs tomorrow. Due to the pneumothorax we will continue to hold the patient's Coumadin at this time and continue on the Lovenox. Pleural fluid has been sent for lab workup. Continue with Solu-Medrol and budesonide as well as Mucinex. Repeat labs in the morning. Cardiology on consult. Infectious disease on consult. Continue with pulmonary hygiene, coughing and deep breathing exercises, and supportive care. Supplemental oxygen to maintain oxygen saturations of 92% or better. Continue nebulizer treatments. GI and DVT prophylaxis. Ensure 3 times a day with meals. We will continue to monitor labs/results and adjust treatment as necessary. Further recommendations pending. I performed an examination of the patient and discussed their management with the nurse practitioner. I have reviewed the nurse practitioner's note and agree with the documented findings and plan of care.
[2017-05-11] MEDS: FERROUS SULFATE 325 MG TAB PO SCH (13:20)
[2017-05-11 16:39] LABS: Glucose,Whole Blood 216 mg/dL (75-99)
[2017-05-11] MEDS: ALPRAZolam 0.25 MG TAB PO PRN (17:00)
[2017-05-11 20:55] LABS: Glucose,Whole Blood 187 mg/dL (75-99)
[2017-05-11] MEDS: MONTELUKAST 10 MG TAB PO SCH (21:49)
[2017-05-11] MEDS: ATORVASTATIN 40 MG TAB PO SCH (21:49)
[2017-05-11] MEDS: ALPRAZolam 0.5 MG TAB PO PRN (22:44)
--- NOTE | 2017-05-11 22:50 | P.PN ---
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 Became profoundly weak. Was also having increasing amounts of pain to the right lower side of her chest. Because the she presented to the emergency center. Telemetry was some steroids and respiratory treatments and this has helped her as well as pain medications. She has less short of breath at the moment and she wasn't admission. But still is quite miserable. She sitting upright sitting forward relates this gives her some relief of the discomfort she has in her right lower chest toward the back. She is still short of breath compared to her baseline. She has no hemoptysis but does have a mild cough at times. She is not having significant sputum Production. He is feeling slightly better since the thoracentesis. Has been seen by cardiothoracic surgery with no plans for chest tube for her mild hydro-pneumothorax Objective - Vital Signs Vital signs: Vital Signs Temp 97.8 F 05/11/17 15:00 Pulse 101 H 05/11/17 19:55 Resp 16 05/11/17 16:00 BP 112/64 05/11/17 15:00 Pulse Ox 100 05/11/17 15:20 Intake & Output 05/11/17 05/11/17 05/12/17 06:59 18:59 06:59 Intake Total 1529 1470 Output Total 5100 1770 525 Balance -3571 -300 -525 Weight 47.5 kg Intake: Intake, IV Titration 829 750 Amount Piperacillin-Tazobactam 3 50 50 .375 gm In Dextrose/Water 1 50ml.bag @ 12.5 mls/hr IVPB Q8HR [facility] Rx#: [id number] Sodium Chloride 0.9% 1, 779 700 000 ml @ 100 mls/hr IV . Q10H [facility] Rx#:[id number] Oral 700 720 Output: Chest Tube Drainage 600 170 Chest Tube Right Lateral 600 170 Chest Urine 4500 1600 525 Uretheral ([place]) 1800 1600 525 Other: Voiding Method Indwelling Catheter Indwelling Catheter # Voids 2 2 # Bowel Movements 2 - Exam 57-year-old woman who looks much older than her stated age. She is chronically ill. HEENT: Anicteric conjunctiva are pink and moist nasal mucosa grossly intact without significant lesions, there is no thrush. Poor dentition Neck: The neck is supple without significant lymphadenopathy or thyromegaly. Lungs: Symmetrical air entry with wheezes scattered throughout the lung iqbal. Evidence of decreased breath sounds breath sounds to the right base. The extensive dullness and egophony to the right base has resolved wit the chest tube Heart: irregular no S3 loud S4 There is no significant murmur click or rub, PMI was nondisplaced. Abdomen: Positive bowel sounds soft and nontender without palpable masses or organomegaly. There was no guarding or rebound. Extremities: The extremities have just trace edema. She has no tenderness over the joints. Skin the patient has changes of diabetes her lower extremities however she has a difficulty with chronically picking at her skin and has innumerable lesions that healed over arms and legs at this time. None of them are open are grossly draining at this time is evidence of some erythema to the coccyx. With this the Aquacel silver dressing has been applied. It has the foam border. Neuro: She is awake alert oriented to person place and time and does not exhibit any acute gross focal sensory motor deficits - Labs CBC & Chem 7: 05/11/17 07:25 05/11/17 07:25 Labs: Abnormal Lab Results - Last 24 Hours (Table) 05/11/17 05/11/17 05/11/17 Range/Units 07:07 07:25 07:25 WBC 20.0 H (3.8-10.6) k/uL Hgb 8.3 L (11.4-16.0) gm/dL Hct 30.2 L (34.0-46.0) % MCV 69.3 L (80.0-100.0) fL MCH 19.1 L (25.0-35.0) pg MCHC 27.6 L (31.0-37.0) g/dL RDW 16.2 H (11.5-15.5) % Neutrophils # 17.2 H (1.3-7.7) k/uL Sodium 135 L (137-145) mmol/L Chloride 89 L (98-107) mmol/L Carbon Dioxide 38 H (22-30) mmol/L BUN 53 H (7-17) mg/dL Glucose 213 H (74-99) mg/dL POC Glucose (mg/dL) 276 H (75-99) mg/dL Total Protein 5.3 L (6.3-8.2) g/dL Albumin 3.1 L (3.5-5.0) g/dL 05/11/17 05/11/17 05/11/17 Range/Units 12:03 16:38 20:35 WBC (3.8-10.6) k/uL Hgb (11.4-16.0) gm/dL Hct (34.0-46.0) % MCV (80.0-100.0) fL MCH (25.0-35.0) pg MCHC (31.0-37.0) g/dL RDW (11.5-15.5) % Neutrophils # (1.3-7.7) k/uL Sodium (137-145) mmol/L Chloride (98-107) mmol/L Carbon Dioxide (22-30) mmol/L BUN (7-17) mg/dL Glucose (74-99) mg/dL POC Glucose (mg/dL) 216 H 216 H 187 H (75-99) mg/dL Total Protein (6.3-8.2) g/dL Albumin (3.5-5.0) g/dL Laboratory Results WBC 20.0 k/uL (3.8-10.6) H 05/11/17 07:25 RBC 4.36 m/uL (3.80-5.40) 05/11/17 07:25 Hgb 8.3 gm/dL (11.4-16.0) L 05/11/17 07:25 Hct 30.2 % (34.0-46.0) L 05/11/17 07:25 MCV 69.3 fL (80.0-100.0) L 05/11/17 07:25 MCH 19.1 pg (25.0-35.0) L 05/11/17 07:25 MCHC 27.6 g/dL (31.0-37.0) L 05/11/17 07:25 RDW 16.2 % (11.5-15.5) H 05/11/17 07:25 Plt Count 216 k/uL (150-450) 05/11/17 07:25 Neutrophils % 86 % 05/11/17 07:25 Lymphocytes % 8 % 05/11/17 07:25 Monocytes % 5 % 05/11/17 07:25 Eosinophils % 0 % 05/11/17 07:25 Basophils % 0 % 05/11/17 07:25 Neutrophils # 17.2 k/uL (1.3-7.7) H 05/11/17 07:25 Lymphocytes # 1.6 k/uL (1.0-4.8) 05/11/17 07:25 Monocytes # 1.0 k/uL (0-1.0) 05/11/17 07:25 Eosinophils # 0.0 k/uL (0-0.7) 05/11/17 07:25 Basophils # 0.0 k/uL (0-0.2) 05/11/17 07:25 Hypochromasia Marked 05/11/17 07:25 Poikilocytosis Slight 05/09/17 10:56 Anisocytosis Slight 05/11/17 07:25 Microcytosis Marked 05/11/17 07:25 PT 11.1 sec (9.0-12.0) 05/11/17 07:25 INR 1.1 (<1.2) 05/11/17 07:25 APTT 39.4 sec (22.0-30.0) H 05/02/17 02:30 D-Dimer 0.60 mg/L FEU (<0.60) H 05/02/17 02:30 Sodium 135 mmol/L (137-145) L 05/11/17 07:25 Potassium 4.4 mmol/L (3.5-5.1) 05/11/17 07:25 Chloride 89 mmol/L (98-107) L 05/11/17 07:25 Carbon Dioxide 38 mmol/L (22-30) H 05/11/17 07:25 Anion Gap 8 mmol/L 05/11/17 07:25 BUN 53 mg/dL (7-17) H 05/11/17 07:25 Creatinine 0.75 mg/dL (0.52-1.04) 05/11/17 07:25 Est GFR (MDRD) Af Amer >60 (>60 ml/min/1.73 sqM) 05/11/17 07:25 Est GFR (MDRD) Non-Af >60 (>60 ml/min/1.73 sqM) 05/11/17 07:25 Glucose 213 mg/dL (74-99) H 05/11/17 07:25 POC Glucose (mg/dL) 187 mg/dL (75-99) H 05/11/17 20:35 POC Glu Stitcher Set Up Operator Automatic ID Carol Baldwin 05/11/17 20:[address] Glu mg/dL 80 mg/dL 05/02/17 02:30 Hemoglobin A1c 4.4 % (4.2-6.1) 05/02/17 02:30 Calcium 8.7 mg/dL (8.4-10.2) 05/11/17 07:25 Phosphorus 4.6 mg/dL (2.5-4.5) H 05/02/17 02:30 Magnesium 1.7 mg/dL (1.6-2.3) 05/03/17 07:15 Total Bilirubin 0.4 mg/dL (0.2-1.3) 05/11/17 07:25 AST 34 U/L (14-36) 05/11/17 07:25 ALT 39 U/L (9-52) 05/11/17 07:25 Alkaline Phosphatase 88 U/L (38-126) 05/11/17 07:25 Total Creatine Kinase 90 U/L (30-135) 05/02/17 02:30 CK-MB (CK-2) 4.0 ng/mL (0.0-2.4) H* 05/02/17 02:30 CK-MB (CK-2) Rel Index 4.4 05/02/17 02:30 Troponin I 0.020 ng/mL (0.000-0.034) 05/02/17 02:30 NT-Pro-B Natriuret Pep 8080 pg/mL 05/02/17 02:30 Total Protein 5.3 g/dL (6.3-8.2) L 05/11/17 07:25 Albumin 3.1 g/dL (3.5-5.0) L 05/11/17 07:25 Urine Color Yellow 05/02/17 23:05 Urine Appearance Clear (Clear) 05/02/17 23:05 Urine pH 6.5 (5.0-8.0) 05/02/17 23:05 Ur Specific [place] 1.012 (1.001-1.035) 05/02/17 23:05 Urine Protein Trace (Negative) H 05/02/17 23:05 Urine Glucose (UA) Negative (Negative) 05/02/17 23:05 Urine Ketones Negative (Negative) 05/02/17 23:05 Urine Blood Trace (Negative) H 05/02/17 23:05 Urine Nitrite Negative (Negative) 05/02/17 23:05 Urine Bilirubin Negative (Negative) 05/02/17 23:05 Urine Urobilinogen <2.0 mg/dL (<2.0) 05/02/17 23:05 Ur Leukocyte Esterase Negative (Negative) 05/02/17 23:05 Urine RBC 7 /hpf (0-5) H 05/02/17 23:05 Urine WBC 1 /hpf (0-5) 05/02/17 23:05 Ur Squamous Epith Cells <1 /hpf (0-4) 05/02/17 23:05 Hyaline Casts 101 /lpf (0-2) H 05/02/17 23:05 Urine Mucus Rare /hpf (None) H 05/02/17 23:05 Fluid Source Pleural 05/05/17 16:15 Fluid Color Yellow 05/05/17 16:15 Fluid Appearance Clear 05/05/17 16:15 Fluid RBC 152 /uL 05/05/17 16:15 Fluid Nucleated Cells 33 /uL 05/05/17 16:15 Fluid Polynuclear WBCs 13 % 05/05/17 16:15 Fluid Mononuclear WBCs 87 % 05/05/17 16:15 Body Fluid Glucose Source Pleural Fluid 05/05/17 16:15 Fluid Glucose 159 mg/dL 05/05/17 16:15 Body Fluid Protein Source Pleural Fluid 05/05/17 16:15 Fluid Total Protein 1289.0 mg/dL 05/05/17 16:15 Body Fluid LDH Source Pleural Fluid 05/05/17 16:15 Fluid LDH 105 U/L 05/05/17 16:15 Urine Legionella Ag Not detected (Not detected) 05/02/17 23:05 Mycoplasma pneumon IgG 2.82 INDEX (<=0.90) H 05/03/17 07:15 Mycoplasma pneumon IgM 0.46 INDEX (<=0.90) 05/03/17 07:15 Microbiology 05/05/17 16:15 Pleural Fluid Gram Stain - Final 05/05/17 16:15 Pleural Fluid Body Fluid Culture - Final 05/05/17 18:00 Sputum Gram Stain - Final 05/05/17 18:00 Sputum Sputum Culture - Final Corynebacterium striatum 05/02/17 02:30 Blood Blood Culture - Final No Growth after 144 hours 05/05/17 16:15 Pleural Fluid Acid Fast Bacilli Smear - Final 05/05/17 16:15 Pleural Fluid Acid Fast Bacilli Culture - Preliminary 05/05/17 16:15 Pleural Fluid Fungal Culture - Preliminary 05/02/17 23:05 Urine,Voided Urine Culture - Final Assessment and Plan (1) COPD (chronic obstructive pulmonary disease) Status: Acute (2) Afib Status: Acute (3) Pleural effusion Narrative/Plan: 57-year-old female who has advanced COPD that is oxygen and inhaled steroid dependent, but continues to smoke. Presents to Hospital feeling increasing shortness of breath. Was associated with increasing amounts of discomfort to her right lower chest especially posterior. Chest ray and ultrasound reveal evidence of an increasing effusion to that area. Potentially will have a thoracentesis. Prior cultures have been negative. No history of MRSA. Given her complex history currently be treating with piperacillin tazobactam and Levaquin until we have further data. Blood cultures are negative so far. Sputum cultures negative so far. Legionella has come back as negative Mycoplasma is positive for old disease nothing acute Thoracentesis has occurred. Fluid is negative for infection but is an exudate is noted by the chemistry. She does feel symptomatically better since this. Has been seen by cardiothoracic surgery with no plans for surgery surgery. Cytology is negative for malignancy from the thoracentesis. Radiology consult has been requested for the pigtail Pleur-evac catheter placement allowed improvement of breathing . With current steroid therapy as well as the breathing treatments she is symptomatically improving. The patient does have a stage II area on the coccyx for which the Aquacel silver foam dressing is then applied. Advised to try to not always being is sitting up position to offload some pressure to her coccyx. Status: Acute Code(s): J90 - PLEURAL EFFUSION, NOT ELSEWHERE CLASSIFIED
[2017-05-11] MEDS: traZODone HCL 50 MG TAB PO SCH (23:37)
[2017-05-12] MEDS: HYDROcodone/APAP 10-325MG 1 EACH TAB PO PRN ×3 (05:33→18:06)
[2017-05-12] MEDS: SODIUM CHLORIDE 0.9% 1,000 ML IV SCH ×2 (05:35→15:50)
[2017-05-12] MEDS: LEVOFLOXACIN 750 MG TAB PO SCH (06:15)
[2017-05-12 06:42] LABS: Glucose,Whole Blood 251 mg/dL (75-99)
[2017-05-12] MEDS: IPRATROPIUM-ALBUTEROL 3 ML NEB INHALATION SCH ×4 (07:11→19:21)
[2017-05-12] MEDS: BUDESONIDE 0.5 MG/2 ML NEBU INHALATION SCH ×2 (07:11→19:21)
[2017-05-12] MEDS: PIPERACILLIN-TAZOBACTAM 3.375 GM in DEXTROSE/WATER 1 50ML.BAG IVPB SCH ×2 (07:17→17:19)
[2017-05-12] MEDS: methylPREDNISolone SOD SUCCI 40 MG/ML 1 ML VIAL IV SCH ×2 (07:20→17:20)
[2017-05-12] MEDS: INSULIN LISPRO (humaLOG) 300 UNIT/3 ML VIAL SQ SCH ×3 (07:21→22:43)
[2017-05-12] MEDS: ENOXAPARIN 40 MG/0.4 ML SYRINGE SQ SCH ×2 (07:22→22:33)
[2017-05-12 07:31] LABS: Anisocytosis Slight; Basophils % (A) 0 %; CH 19.1; CHCM 27.8; Eosinophils % (A) 0 %; HCT 28.7 % (34.0-46.0); HDW 3.35; HGB 8.2 gm/dL (11.4-16.0); Hypochromasia Marked; Luc # (Auto) 0.19; Luc % (Auto) 1; Lymphocytes # (A) 1.8 k/uL (1.0-4.8); Lymphocytes % (A) 9 %; MCH 19.8 pg (25.0-35.0); MCHC 28.7 g/dL (31.0-37.0); MCV 68.8 fL (80.0-100.0); Mean Platelet Volume 8.2; Microcytosis Marked; Monocytes # (A) 0.9 k/uL (0-1.0); Monocytes % (A) 4 %; Neutrophils # (A) 17.6 k/uL (1.3-7.7); Neutrophils % (A) 86 %; RBC 4.17 m/uL (3.80-5.40); RDW 16.2 % (11.5-15.5); WBC 20.6 k/uL (3.8-10.6); WBC (Perox) 20.97
[2017-05-12] MEDS: DIGOXIN 125 MCG TAB PO SCH (07:35)
[2017-05-12] MEDS: DOCUSATE 100 MG CAP PO SCH (07:35)
[2017-05-12] MEDS: POTASSIUM CHLORIDE ER 10 MEQ TAB.ER.PRT PO SCH (07:35)
[2017-05-12] MEDS: guaiFENesin 600 MG TABLET.ER PO SCH ×2 (07:35→22:33)
[2017-05-12] MEDS: HYDROmorphone 1 MG/ML 1 ML SYRINGE IVP PRN ×3 (07:35→23:48)
[2017-05-12] MEDS: FUROSEMIDE 40 MG TAB PO SCH ×2 (07:35→22:33)
[2017-05-12 07:38] LABS: INR 1.2 (<1.2); Prothrombin Time 11.6 sec (9.0-12.0)
[2017-05-12 07:56] LABS: ALT 44 U/L (9-52); AST 37 U/L (14-36); Alkaline Phosphatase 80 U/L (38-126); Anion Gap 8 mmol/L; Blood Urea Nitrogen 50 mg/dL (7-17); Calcium 8.7 mg/dL (8.4-10.2); Carbon Dioxide 34 mmol/L (22-30); Chloride 92 mmol/L (98-107); Glucose 197 mg/dL (74-99); Non-African American GFR(MDRD) >60 (>60 ml/min/1.73 sqM); Potassium 4.5 mmol/L (3.5-5.1); Sodium 134 mmol/L (137-145); Total Bilirubin 0.4 mg/dL (0.2-1.3); Total Protein 5.3 g/dL (6.3-8.2)
--- NOTE | 2017-05-12 08:57 | XR ---
EXAMINATION TYPE: XR chest 2V DATE OF EXAM: 05/12/2017 COMPARISON: 05/10/2017 TECHNIQUE: PA and lateral views submitted. HISTORY: Chest 2 FINDINGS: Right-sided chest tube noted. There is calcification left lung are stable right-sided pneumothorax me asuring approximately 15%. The heart is enlarged and there is no overt failure. Underlying COPD and chronic interstitial lung di sease suspected. IMPRESSION: 1. Stable right-sided pneumothorax with chest tube noted in position. 2. Cardiomegaly and changes of COPD and chronic interstitial lung disease.
[2017-05-12 11:16] LABS: Glucose,Whole Blood 316 mg/dL (75-99)
--- NOTE | 2017-05-12 11:32 | P.PN ---
Subjective 05/02/17 This is a 57-year-old female patient being seen, examined and evaluated. Patient is well-known to our services. This Patient comes in with complaints of shortness of breath that had been increasing over the last few days. The patient does have a significant medical history for CHF, COPD that is severe, chronic persistent asthma but severe, atrial fibrillation, renal insufficiency and liver disease. This patient has a known history for reoccurring pneumonia as well. Patient states she uses 4-5 L of supplemental oxygen at home at all times. Upon examination the patient's resting up in bed on 5 L of supplemental oxygen, she states she has shortness of breath with any minimal exertion as well as extensive conversation. Chest x-ray has been reviewed and shows an increasing right pleural effusion which is associated with atelectasis, possible pulmonary artery hypertension, and congestive heart failure. 05/03/17 upon examination today the patient's resting up in bed and continues to be on 5 L of supplemental oxygen. Patient continues to have shortness of breath with any minimal exertion and extensive conversation. Patient did undergo an ultrasound of the chest yesterday which revealed a right pleural effusion fluid pocket of 10.4 cm this has increased significantly since her last ultrasound of the chest which was done 02/08/2017 which showed a right pleural effusion pocket of 4.2 at that time. During that admission in January the effusion was too small to undergo a thoracentesis. Of note ,since its progression, the patient is a candidate to have the thoracentesis performed in regards to size. However the patient was on Coumadin for chronic A. fib and her INR yesterday was 2.9. Yesterday we discontinued the Coumadin and put the patient on Lovenox in preparation for thoracentesis. A repeat INR was performed today and is currently 3.6. We would like the patient's INR to be closer to 1.4 before we perform the thoracentesis. Repeat labs will be drawn tomorrow. 05/04/17 examination today the patient's resting up in bed and continues on 5 L of supplemental oxygen. Patient states she is a little less short of breath today than previously. However she still continues to have shortness of breath with exertion. Patient's INR today was 3.7, which is still too high to undergo a thoracentesis. Labs have been reviewed. We truly the increase in INR due to the patient being on Levaquin as a side effect. 05/05/17- upon examination today the patient is resting up in bed and continues on the 5 L of supplemental oxygen. The patient's INR today is 1.3 therefore we can go forth with the thoracentesis. The procedure as well as the risk and benefits have been discussed at length with the patient QUESTIONS have been answered. After the thoracentesis is completed the fluid will be sent for lab workup. The patient will be able to start back on her Coumadin tonight. The patient should continue with Lovenox until her INR is more than 1.8. Patient continues to have shortness of breath with exertion. 05/06/17- patient did undergo a thoracentesis yesterday. 1.6 L of clear yellow pleural fluid was removed. It was discovered on the post x-ray at the patient did have a 20% pneumothorax. The patient was asymptomatic at that time. The patient was to be watched closely overnight and have a repeat chest x-ray that evening which was stable and another one this morning which dates show a possible slight increase in the pneumothorax. CT of the chest without contrast was obtained and results are not readily available. We will consult cardiothoracic to follow the patient and interventional radiology to place a pigtail catheter. Upon examination the patient is resting up in bed and despite the pneumothorax the patient states her breathing is better today after having the fluid removed. Patient is still requiring 4-5 L of supplemental oxygen however she said her shortness of breath has decreased. Patient is afebrile no further complaints. 05/07/17 and 05/08/17, please refer to DR. JULIO Gao note, as he covered these days. 05/09/17-upon examination today the patient's resting up in bed on 5 L of supplemental oxygen. Chest x-rays have been reviewed and the patient still has a pneumothorax that has not improved, pneumothorax remains about 30%. Therefore the patient will ultimately require a chest tube placement by interventional radiology. Patient continues to feel short of breath and tight. Today she states she feels slightly worse than yesterday in regards to her breathing. We'll recheck her CBC CMP and PT/INR. Patient has had her Coumadin on hold since pneumothorax and she has been receiving Lovenox. 05/10/17- on examination today the patient has just came back from interventional radiology after pigtail chest tube insertion. There is approximately 300 ML's of serosanguineous drainage noted upon arrival and the pleural VAC has not been attached to suction yet at this time. Patient will be hooked up to wall suction. Patient states that this initially received the chest tube she had immediate relief in her shortness of breath which decreased significantly. Patient states she is breathing much better post procedure. Patient is noted to be sitting up in bed and continues on 5 L of supplemental oxygen. Labs and radiology reports have been reviewed. 05/11/17- upon examination today the patient is resting up in bed and states she feels better today. Patient continues on 5 L of supplemental oxygen. Patient still has her chest tube in and has had approximately 700 ML's of serosanguineous output total since it was inserted. Her appetite has improved slightly as well. Patient states she is much more comfortable today. She continues on IV Solu-Medrol, updrafts and antibiotics. 05/12/17- today the patient is seen resting in bed on 4-5 L of oxygen. The patient states that she continues to have a productive cough with congestion. She is breathing easier with less effort. Appetite continues to improve. Her chest tube shows an output of approximately 875 ML's total output. Continues to be hooked up to suction. States her appetite continues to wax and wane. Chest x-ray from today has been reviewed patient's hydropneumothorax has been improved and remains about 15%. Objective - Vital Signs Vital signs: Vital Signs Temp 98.4 F 05/12/17 07:14 Pulse 86 05/12/17 11:22 Resp 18 05/12/17 08:00 BP 126/70 05/12/17 07:14 Pulse Ox 100 05/12/17 07:14 Intake & Output 05/11/17 05/12/17 05/12/17 18:59 06:59 18:59 Intake Total 1470 1429 Output Total 1770 2135 430 Balance -300 -706 -430 Weight 46.9 kg Intake: Intake, IV Titration 750 1329 Amount Piperacillin-Tazobactam 3 50 50 .375 gm In Dextrose/Water 1 50ml.bag @ 12.5 mls/hr IVPB Q8HR [facility] Rx#: [id number] Sodium Chloride 0.9% 1, 700 1279 000 ml @ 100 mls/hr IV . Q10H [facility] Rx#:[id number] Oral 720 100 Output: Chest Tube Drainage 170 110 30 Chest Tube Right Lateral 170 110 30 Chest Urine 1599 2024 400 Uretheral ([place]) 1599 2024 Other: Voiding Method Indwelling Catheter Indwelling Catheter Indwelling Catheter # Voids 2 3 # Bowel Movements 2 - Exam GENERAL EXAM: Alert, cachectic, comfortable in no apparent distress. HEAD: Normocephalic. EYES: Normal reaction of pupils, equal size. NOSE: Clear with pink turbinates. THROAT: No erythema or exudates. NECK: No masses, no JVD. CHEST: No chest wall deformity. LUNGS: Poor air entry is present, scattered rhonchi as well as expiratory wheezes noted throughout. Decreased breath sounds on the right base, however slightly improved. Right-sided pigtail chest tube in place. CVS: S1 and S2 normal with no audible mumurs, regular rhythm. ABDOMEN: No hepatosplenomegaly, normal bowel sounds, no guarding or rigidity. EXTREMITIES: Trace edema noted, pedal pulses palpable. SKIN: No rashes, dressing in place to coccyx wound CENTRAL NERVOUS SYSTEM: No focal deficits, tone is normal in all 4 extremities. - Labs CBC & Chem 7: 05/12/17 07:20 05/12/17 07:20 Labs: Abnormal Lab Results - Last 24 Hours (Table) 05/11/17 05/11/17 05/11/17 Range/Units 12:03 16:38 20:35 WBC (3.8-10.6) k/uL Hgb (11.4-16.0) gm/dL Hct (34.0-46.0) % MCV (80.0-100.0) fL MCH (25.0-35.0) pg MCHC (31.0-37.0) g/dL RDW (11.5-15.5) % Neutrophils # (1.3-7.7) k/uL INR (<1.2) Sodium (137-145) mmol/L Chloride (98-107) mmol/L Carbon Dioxide (22-30) mmol/L BUN (7-17) mg/dL Glucose (74-99) mg/dL POC Glucose (mg/dL) 216 H 216 H 187 H (75-99) mg/dL AST (14-36) U/L Total Protein (6.3-8.2) g/dL Albumin (3.5-5.0) g/dL 05/12/17 05/12/17 05/12/17 Range/Units 06:41 07:20 07:20 WBC 20.6 H (3.8-10.6) k/uL Hgb 8.2 L (11.4-16.0) gm/dL Hct 28.7 L (34.0-46.0) % MCV 68.8 L (80.0-100.0) fL MCH 19.8 L (25.0-35.0) pg MCHC 28.7 L (31.0-37.0) g/dL RDW 16.2 H (11.5-15.5) % Neutrophils # 17.6 H (1.3-7.7) k/uL INR 1.2 H (<1.2) Sodium (137-145) mmol/L Chloride (98-107) mmol/L Carbon Dioxide (22-30) mmol/L BUN (7-17) mg/dL Glucose (74-99) mg/dL POC Glucose (mg/dL) 251 H (75-99) mg/dL AST (14-36) U/L Total Protein (6.3-8.2) g/dL Albumin (3.5-5.0) g/dL 05/12/17 05/12/17 Range/Units 07:20 11:14 WBC (3.8-10.6) k/uL Hgb (11.4-16.0) gm/dL Hct (34.0-46.0) % MCV (80.0-100.0) fL MCH (25.0-35.0) pg MCHC (31.0-37.0) g/dL RDW (11.5-15.5) % Neutrophils # (1.3-7.7) k/uL INR (<1.2) Sodium 134 L (137-145) mmol/L Chloride 92 L (98-107) mmol/L Carbon Dioxide 34 H (22-30) mmol/L BUN 50 H (7-17) mg/dL Glucose 197 H (74-99) mg/dL POC Glucose (mg/dL) 316 H (75-99) mg/dL AST 37 H (14-36) U/L Total Protein 5.3 L (6.3-8.2) g/dL Albumin 3.2 L (3.5-5.0) g/dL Assessment and Plan Plan: Assessment Right-sided pneumothorax Right-sided pleural effusion with right sided pneumonia suspect mixed/gram- negative in nature Acute exacerbation of chronic obstructive pulmonary disease Acute on chronic hypoxic respiratory failure Congestive heart failure Probable pulmonary hypertension Atrial fibrillation Chronic anemia Severe protein calorie malnutrition Plan Medications have been reviewed and will be continued as ordered. Continue with IV antibiotics. Chest tube to wall suction, continue to monitor output. We will continue to monitor the pneumothorax. Repeat labs tomorrow. Due to the pneumothorax we will continue to hold the patient's Coumadin at this time and continue on the Lovenox. Pleural fluid has been sent for lab workup. Continue with Solu-Medrol and budesonide as well as Mucinex. Repeat labs in the morning. Cardiology on consult. Infectious disease on consult. Continue with pulmonary hygiene, coughing and deep breathing exercises, and supportive care. Supplemental oxygen to maintain oxygen saturations of 92% or better. Continue nebulizer treatments. GI and DVT prophylaxis. Ensure 3 times a day with meals. We will continue to monitor labs/results and adjust treatment as necessary. Further recommendations pending. I performed an examination of the patient and discussed their management with the nurse practitioner. I have reviewed the nurse practitioner's note and agree with the documented findings and plan of care.
[2017-05-12] MEDS: FERROUS SULFATE 325 MG TAB PO SCH (11:47)
[2017-05-12] MEDS ORDERED: INSULIN LISPRO (humaLOG) 300 UNIT/3 ML VIAL SQ SCH (12:30)
[2017-05-12] MEDS: INSULIN REGULAR 100 UNIT in SODIUM CHLORIDE 0.9% 100 ML IV SCH ×3 (13:04→15:09)
[2017-05-12 13:08] LABS: Glucose,Whole Blood 364 mg/dL (75-99)
[2017-05-12 13:48] LABS: Glucose,Whole Blood 362 mg/dL (75-99)
[2017-05-12 14:21] LABS: Glucose,Whole Blood 365 mg/dL (75-99)
[2017-05-12 14:54] LABS: Glucose,Whole Blood 325 mg/dL (75-99)
[2017-05-12 15:22] LABS: Glucose,Whole Blood 243 mg/dL (75-99)
[2017-05-12 16:50] LABS: Glucose,Whole Blood 96 mg/dL (75-99)
[2017-05-12 17:59] LABS: Glucose,Whole Blood 81 mg/dL (75-99)
[2017-05-12 19:01] LABS: Glucose,Whole Blood 195 mg/dL (75-99)
[2017-05-12 21:09] LABS: Glucose,Whole Blood 173 mg/dL (75-99)
[2017-05-12] MEDS: ATORVASTATIN 40 MG TAB PO SCH (22:32)
[2017-05-12] MEDS: MONTELUKAST 10 MG TAB PO SCH (22:33)
[2017-05-12] MEDS: traZODone HCL 50 MG TAB PO SCH (22:33)
[2017-05-12 23:18] LABS: Glucose,Whole Blood 113 mg/dL (75-99)
--- NOTE | 2017-05-12 23:30 | PN ---
DATE OF SERVICE: 05/11/2017 This 57-year-old white female who was admitted to the hospital with increasing shortness of breath is known to have chronic obstructive pulmonary disease and chronic congestive heart failure. Patient was admitted also with COPD with acute exacerbation and right pleural effusion and pneumonia. Also she had acute on chronic congestive heart failure. She is known to have chronic atrial fibrillation with severe mitral stenosis. The patient was seen by Dr. Segun Hinds in consultation for her lung problems. She was started on IV Solu-Medrol, IV antibiotics and updraft treatments. Her pleural effusions showed increasing fluid and Dr. Hinds did thoracentesis and removed more than 1 liter of fluid. Patient developed some pneumothorax and because this was not improving, a chest tube was inserted. Currently patient is feeling slightly better. Chest x-ray shows stable condition. Patient was also seen by Cardiology in consultation. They are also following the patient. Patient's cardiac status has stabilized. The patient is also known to have diabetes mellitus. This is being controlled with NovoLog sliding scale. Overall prognosis is guarded. Will continue current medications. Patient will be able to go home when ( ) is out. Social Service is making arrangements for that. [facility]
--- NOTE | 2017-05-12 23:37 | PN ---
DATE OF SERVICE: 05/12/2017 This is a 57-year-old white female who has multiple chronic medical problems. She was admitted this time with increasing shortness of breath and general weakness. She was found to have right lower lobe pneumonia, right pleural effusion, congestive heart failure, and patient was admitted to the hospital for further evaluation and treatment. Patient was started on IV antibiotics, updraft treatments and IV Solu-Medrol. Diabetes is being controlled with NovoLog sliding scale. Patient also was seen by Dr. Hinds in consultation, and because of the pleural effusion, a thoracentesis was done with removal of more than 1 liter of fluid. Patient felt slightly better after that, but patient developed pneumothorax, and currently she has a chest tube inserted. Patient's lung condition is stable; in fact, maybe her lungs are gradually expanding. Patient also has chronic atrial fibrillation with acute on chronic congestive heart failure and she has severe mitral stenosis. Cardiology is also following the patient. Patient has some improvement. She is known to have chronic anemia. Initially when admitted she received a blood transfusion. Now she is on iron tablets and her hemoglobin is gradually dropping. Today her hemoglobin is 8.2. The overall prognosis is guarded. The diagnosis, prognosis and therapeutic plans were discussed in detail with the patient. We will continue current treatment. She will be discharged as soon as the chest tube is taken out. [facility]
[2017-05-12] MEDS: ALPRAZolam 0.5 MG TAB PO PRN (23:47)
[2017-05-13 01:32] LABS: Glucose,Whole Blood 188 mg/dL (75-99)
[2017-05-13] MEDS: HYDROcodone/APAP 10-325MG 1 EACH TAB PO PRN ×3 (03:20→18:11)
[2017-05-13 03:21] LABS: Glucose,Whole Blood 125 mg/dL (75-99)
[2017-05-13] MEDS: methylPREDNISolone SOD SUCCI 40 MG/ML 1 ML VIAL IV SCH ×3 (03:25→18:03)
[2017-05-13] MEDS: SODIUM CHLORIDE 0.9% 1,000 ML IV SCH ×2 (03:26→12:59)
[2017-05-13 05:14] LABS: Glucose,Whole Blood 133 mg/dL (75-99)
[2017-05-13] MEDS: LEVOFLOXACIN 750 MG TAB PO SCH (05:42)
[2017-05-13] MEDS: BUDESONIDE 0.5 MG/2 ML NEBU INHALATION SCH ×2 (07:26→19:42)
[2017-05-13] MEDS: IPRATROPIUM-ALBUTEROL 3 ML NEB INHALATION SCH ×4 (07:26→19:42)
[2017-05-13 07:29] LABS: Glucose,Whole Blood 156 mg/dL (75-99)
[2017-05-13] MEDS: HYDROmorphone 1 MG/ML 1 ML SYRINGE IVP PRN ×3 (07:55→23:59)
[2017-05-13] MEDS: INSULIN LISPRO (humaLOG) 300 UNIT/3 ML VIAL SQ SCH ×4 (08:05→21:13)
[2017-05-13] MEDS: ENOXAPARIN 40 MG/0.4 ML SYRINGE SQ SCH (08:08)
[2017-05-13] MEDS: POTASSIUM CHLORIDE ER 10 MEQ TAB.ER.PRT PO SCH (08:08)
[2017-05-13] MEDS: DIGOXIN 125 MCG TAB PO SCH (08:08)
[2017-05-13] MEDS: FUROSEMIDE 40 MG TAB PO SCH (08:08)
[2017-05-13] MEDS: DOCUSATE 100 MG CAP PO SCH (08:08)
[2017-05-13] MEDS: guaiFENesin 600 MG TABLET.ER PO SCH (08:08)
[2017-05-13 08:45] LABS: ALT 52 U/L (9-52); AST 42 U/L (14-36); Alkaline Phosphatase 69 U/L (38-126); Anion Gap 10 mmol/L; Blood Urea Nitrogen 47 mg/dL (7-17); Calcium 8.7 mg/dL (8.4-10.2); Carbon Dioxide 32 mmol/L (22-30); Chloride 93 mmol/L (98-107); Glucose 146 mg/dL (74-99); Non-African American GFR(MDRD) >60 (>60 ml/min/1.73 sqM); Potassium 4.7 mmol/L (3.5-5.1); Sodium 135 mmol/L (137-145); Total Bilirubin 0.4 mg/dL (0.2-1.3); Total Protein 5.4 g/dL (6.3-8.2)
[2017-05-13 09:02] LABS: Anisocytosis Slight; Basophils # (A) 0.1 k/uL (0-0.2); Basophils % (A) 0 %; CHCM 27.7; Eosinophils % (A) 0 %; HCT 28.9 % (34.0-46.0); HDW 3.32; HGB 8.3 gm/dL (11.4-16.0); Hypochromasia Marked; Luc # (Auto) 0.25; Luc % (Auto) 1; Lymphocytes # (A) 1.8 k/uL (1.0-4.8); Lymphocytes % (A) 7 %; MCH 19.7 pg (25.0-35.0); MCHC 28.7 g/dL (31.0-37.0); MCV 68.7 fL (80.0-100.0); Mean Platelet Volume 7.9; Microcytosis Marked; Monocytes % (A) 4 %; Neutrophils # (A) 22.2 k/uL (1.3-7.7); Neutrophils % (A) 88 %; RBC 4.21 m/uL (3.80-5.40); RDW 16.4 % (11.5-15.5); WBC (Perox) 25.85
[2017-05-13 09:05] LABS: INR 1.1 (<1.2); Prothrombin Time 11.3 sec (9.0-12.0)
[2017-05-13 09:19] LABS: WBC 25.3 k/uL (3.8-10.6)
[2017-05-13 11:19] LABS: Glucose,Whole Blood 227 mg/dL (75-99)
--- NOTE | 2017-05-13 12:23 | P.PN ---
Subjective 05/02/17 This is a 57-year-old female patient being seen, examined and evaluated. Patient is well-known to our services. This Patient comes in with complaints of shortness of breath that had been increasing over the last few days. The patient does have a significant medical history for CHF, COPD that is severe, chronic persistent asthma but severe, atrial fibrillation, renal insufficiency and liver disease. This patient has a known history for reoccurring pneumonia as well. Patient states she uses 4-5 L of supplemental oxygen at home at all times. Upon examination the patient's resting up in bed on 5 L of supplemental oxygen, she states she has shortness of breath with any minimal exertion as well as extensive conversation. Chest x-ray has been reviewed and shows an increasing right pleural effusion which is associated with atelectasis, possible pulmonary artery hypertension, and congestive heart failure. 05/03/17 upon examination today the patient's resting up in bed and continues to be on 5 L of supplemental oxygen. Patient continues to have shortness of breath with any minimal exertion and extensive conversation. Patient did undergo an ultrasound of the chest yesterday which revealed a right pleural effusion fluid pocket of 10.4 cm this has increased significantly since her last ultrasound of the chest which was done 02/08/2017 which showed a right pleural effusion pocket of 4.2 at that time. During that admission in January the effusion was too small to undergo a thoracentesis. Of note ,since its progression, the patient is a candidate to have the thoracentesis performed in regards to size. However the patient was on Coumadin for chronic A. fib and her INR yesterday was 2.9. Yesterday we discontinued the Coumadin and put the patient on Lovenox in preparation for thoracentesis. A repeat INR was performed today and is currently 3.6. We would like the patient's INR to be closer to 1.4 before we perform the thoracentesis. Repeat labs will be drawn tomorrow. 05/04/17 examination today the patient's resting up in bed and continues on 5 L of supplemental oxygen. Patient states she is a little less short of breath today than previously. However she still continues to have shortness of breath with exertion. Patient's INR today was 3.7, which is still too high to undergo a thoracentesis. Labs have been reviewed. We truly the increase in INR due to the patient being on Levaquin as a side effect. 05/05/17- upon examination today the patient is resting up in bed and continues on the 5 L of supplemental oxygen. The patient's INR today is 1.3 therefore we can go forth with the thoracentesis. The procedure as well as the risk and benefits have been discussed at length with the patient QUESTIONS have been answered. After the thoracentesis is completed the fluid will be sent for lab workup. The patient will be able to start back on her Coumadin tonight. The patient should continue with Lovenox until her INR is more than 1.8. Patient continues to have shortness of breath with exertion. 05/06/17- patient did undergo a thoracentesis yesterday. 1.6 L of clear yellow pleural fluid was removed. It was discovered on the post x-ray at the patient did have a 20% pneumothorax. The patient was asymptomatic at that time. The patient was to be watched closely overnight and have a repeat chest x-ray that evening which was stable and another one this morning which dates show a possible slight increase in the pneumothorax. CT of the chest without contrast was obtained and results are not readily available. We will consult cardiothoracic to follow the patient and interventional radiology to place a pigtail catheter. Upon examination the patient is resting up in bed and despite the pneumothorax the patient states her breathing is better today after having the fluid removed. Patient is still requiring 4-5 L of supplemental oxygen however she said her shortness of breath has decreased. Patient is afebrile no further complaints. 05/07/17 and 05/08/17, please refer to DR. JULIO Gao note, as he covered these days. 05/09/17-upon examination today the patient's resting up in bed on 5 L of supplemental oxygen. Chest x-rays have been reviewed and the patient still has a pneumothorax that has not improved, pneumothorax remains about 30%. Therefore the patient will ultimately require a chest tube placement by interventional radiology. Patient continues to feel short of breath and tight. Today she states she feels slightly worse than yesterday in regards to her breathing. We'll recheck her CBC CMP and PT/INR. Patient has had her Coumadin on hold since pneumothorax and she has been receiving Lovenox. 05/10/17- on examination today the patient has just came back from interventional radiology after pigtail chest tube insertion. There is approximately 300 ML's of serosanguineous drainage noted upon arrival and the pleural VAC has not been attached to suction yet at this time. Patient will be hooked up to wall suction. Patient states that this initially received the chest tube she had immediate relief in her shortness of breath which decreased significantly. Patient states she is breathing much better post procedure. Patient is noted to be sitting up in bed and continues on 5 L of supplemental oxygen. Labs and radiology reports have been reviewed. 05/11/17- upon examination today the patient is resting up in bed and states she feels better today. Patient continues on 5 L of supplemental oxygen. Patient still has her chest tube in and has had approximately 700 ML's of serosanguineous output total since it was inserted. Her appetite has improved slightly as well. Patient states she is much more comfortable today. She continues on IV Solu-Medrol, updrafts and antibiotics. 05/12/17- today the patient is seen resting in bed on 4-5 L of oxygen. The patient states that she continues to have a productive cough with congestion. She is breathing easier with less effort. Appetite continues to improve. Her chest tube shows an output of approximately 875 ML's total output. Continues to be hooked up to suction. States her appetite continues to wax and wane. Chest x-ray from today has been reviewed patient's hydropneumothorax has been improved and remains about 15%. 05/13/17-today the patient seen resting up in bed on 4-5 L of supplemental oxygen via nasal cannula. She continues to have a productive cough with congestion however she states this is slightly improved today. She continues to breathe easier with less effort. Currently she is eating. Her chest tube shows approximately a total of 1100 ML's of serosanguineous drainage. Coumadin is still currently on hold and she is utilizing Lovenox. Chest x-ray is pending. No further complaints no overnight events. She is utilizing her incentive spirometer and pulls volumes of 1750. We will decrease her steroids today. Objective - Vital Signs Vital signs: Vital Signs Temp 97.6 F 05/13/17 08:36 Pulse 88 05/13/17 12:01 Resp 16 05/13/17 08:36 BP 119/69 05/13/17 08:36 Pulse Ox 100 05/13/17 08:36 Intake & Output 05/12/17 05/13/17 05/13/17 18:59 06:59 18:59 Intake Total 4850.753 8944.780 Output Total 2590 660 Balance -891.604 387.780 Weight 48 kg 48 kg Intake: Intake, IV Titration 798.396 687.780 Amount Insulin Regular 100 unit 48.396 87.780 In Sodium Chloride 0.9% 100 ml @ Titrate IV .Q0M MARY CARMEN Rx#:[id number] Piperacillin-Tazobactam 3 50 .375 gm In Dextrose/Water 1 50ml.bag @ 12.5 mls/hr IVPB Q8HR MARY CARMEN Rx#: [id number] Sodium Chloride 0.9% 1, 700 600 000 ml @ 100 mls/hr IV . Q10H MARY CARMEN Rx#:[id number] Oral 900 360 Output: Chest Tube Drainage 190 10 Chest Tube Right Lateral 190 10 Chest Urine 2400 650 Uretheral ([place]) 650 Other: Voiding Method Indwelling Catheter Indwelling Catheter # Voids 3 # Bowel Movements 1 - Exam GENERAL EXAM: Alert, cachectic, comfortable in no apparent distress. HEAD: Normocephalic. EYES: Normal reaction of pupils, equal size. NOSE: Clear with pink turbinates. THROAT: No erythema or exudates. NECK: No masses, no JVD. CHEST: No chest wall deformity. LUNGS: Poor air entry is present, scattered rhonchi as well as expiratory wheezes noted throughout. Decreased breath sounds on the right base, however slightly improved. Right-sided pigtail chest tube in place. CVS: S1 and S2 normal with no audible mumurs, regular rhythm. ABDOMEN: No hepatosplenomegaly, normal bowel sounds, no guarding or rigidity. EXTREMITIES: Trace edema noted, pedal pulses palpable. SKIN: No rashes, dressing in place to coccyx wound CENTRAL NERVOUS SYSTEM: No focal deficits, tone is normal in all 4 extremities. - Labs CBC & Chem 7: 05/13/17 07:48 05/13/17 07:48 Labs: Abnormal Lab Results - Last 24 Hours (Table) 05/12/17 05/12/17 05/12/17 Range/Units 12:56 13:46 14:17 WBC (3.8-10.6) k/uL Hgb (11.4-16.0) gm/dL Hct (34.0-46.0) % MCV (80.0-100.0) fL MCH (25.0-35.0) pg MCHC (31.0-37.0) g/dL RDW (11.5-15.5) % Neutrophils # (1.3-7.7) k/uL Sodium (137-145) mmol/L Chloride (98-107) mmol/L Carbon Dioxide (22-30) mmol/L BUN (7-17) mg/dL Glucose (74-99) mg/dL POC Glucose (mg/dL) 364 H 362 H 365 H (75-99) mg/dL AST (14-36) U/L Total Protein (6.3-8.2) g/dL Albumin (3.5-5.0) g/dL 05/12/17 05/12/17 05/12/17 Range/Units 14:46 15:19 18:56 WBC (3.8-10.6) k/uL Hgb (11.4-16.0) gm/dL Hct (34.0-46.0) % MCV (80.0-100.0) fL MCH (25.0-35.0) pg MCHC (31.0-37.0) g/dL RDW (11.5-15.5) % Neutrophils # (1.3-7.7) k/uL Sodium (137-145) mmol/L Chloride (98-107) mmol/L Carbon Dioxide (22-30) mmol/L BUN (7-17) mg/dL Glucose (74-99) mg/dL POC Glucose (mg/dL) 325 H 243 H 195 H (75-99) mg/dL AST (14-36) U/L Total Protein (6.3-8.2) g/dL Albumin (3.5-5.0) g/dL 05/12/17 05/12/17 05/13/17 Range/Units 21:05 23:15 01:30 WBC (3.8-10.6) k/uL Hgb (11.4-16.0) gm/dL Hct (34.0-46.0) % MCV (80.0-100.0) fL MCH (25.0-35.0) pg MCHC (31.0-37.0) g/dL RDW (11.5-15.5) % Neutrophils # (1.3-7.7) k/uL Sodium (137-145) mmol/L Chloride (98-107) mmol/L Carbon Dioxide (22-30) mmol/L BUN (7-17) mg/dL Glucose (74-99) mg/dL POC Glucose (mg/dL) 173 H 113 H 188 H (75-99) mg/dL AST (14-36) U/L Total Protein (6.3-8.2) g/dL Albumin (3.5-5.0) g/dL 05/13/17 05/13/17 05/13/17 Range/Units 03:06 05:13 07:18 WBC (3.8-10.6) k/uL Hgb (11.4-16.0) gm/dL Hct (34.0-46.0) % MCV (80.0-100.0) fL MCH (25.0-35.0) pg MCHC (31.0-37.0) g/dL RDW (11.5-15.5) % Neutrophils # (1.3-7.7) k/uL Sodium (137-145) mmol/L Chloride (98-107) mmol/L Carbon Dioxide (22-30) mmol/L BUN (7-17) mg/dL Glucose (74-99) mg/dL POC Glucose (mg/dL) 125 H 133 H 156 H (75-99) mg/dL AST (14-36) U/L Total Protein (6.3-8.2) g/dL Albumin (3.5-5.0) g/dL 05/13/17 05/13/17 05/13/17 Range/Units 07:48 07:48 11:14 WBC 25.3 H* (3.8-10.6) k/uL Hgb 8.3 L (11.4-16.0) gm/dL Hct 28.9 L (34.0-46.0) % MCV 68.7 L (80.0-100.0) fL MCH 19.7 L (25.0-35.0) pg MCHC 28.7 L (31.0-37.0) g/dL RDW 16.4 H (11.5-15.5) % Neutrophils # 22.2 H (1.3-7.7) k/uL Sodium 135 L (137-145) mmol/L Chloride 93 L (98-107) mmol/L Carbon Dioxide 32 H (22-30) mmol/L BUN 47 H (7-17) mg/dL Glucose 146 H (74-99) mg/dL POC Glucose (mg/dL) 227 H (75-99) mg/dL AST 42 H (14-36) U/L Total Protein 5.4 L (6.3-8.2) g/dL Albumin 3.3 L (3.5-5.0) g/dL Assessment and Plan Plan: Assessment Right-sided pneumothorax Right-sided pleural effusion with right sided pneumonia suspect mixed/gram- negative in nature Acute exacerbation of chronic obstructive pulmonary disease Acute on chronic hypoxic respiratory failure Congestive heart failure Probable pulmonary hypertension Atrial fibrillation Chronic anemia Severe protein calorie malnutrition Plan Medications have been reviewed and will be continued as ordered. Decrease her solumedrol today. Continue with IV antibiotics. Chest tube to wall suction, continue to monitor output. We will continue to monitor the pneumothorax. Repeat labs tomorrow. Due to the pneumothorax we will continue to hold the patient's Coumadin at this time and continue on the Lovenox. Pleural fluid has been sent for lab workup. Continue with Solu-Medrol and budesonide as well as Mucinex. Repeat labs in the morning. Cardiology on consult. Infectious disease on consult. Continue with pulmonary hygiene, coughing and deep breathing exercises, and supportive care. Supplemental oxygen to maintain oxygen saturations of 92% or better. Continue nebulizer treatments. GI and DVT prophylaxis. Ensure 3 times a day with meals. We will continue to monitor labs/results and adjust treatment as necessary. Further recommendations pending. I performed an examination of the patient and discussed their management with the nurse practitioner. I have reviewed the nurse practitioner's note and agree with the documented findings and plan of care.
[2017-05-13] MEDS: FERROUS SULFATE 325 MG TAB PO SCH (12:56)
--- NOTE | 2017-05-13 14:09 | DS ---
DATE OF ADMISSION: 05/02/2017 DATE OF DISCHARGE: 05/13/2017 DISCHARGE DIAGNOSES: 1. Right-sided pleural effusion. 2. Right-sided pneumothorax. 3. Right lower lobe pneumonia. 4. Acute exacerbation of chronic obstructive pulmonary disease. 5. Acute on chronic hypoxic respiratory failure. 6. Acute on chronic congestive heart failure combined diastolic and systolic. 7. Chronic atrial fibrillation. 8. Chronic anemia. 9. Severe mitral stenosis. 10. Diabetes mellitus. 11. Chronic low back pain. 12. Status post thoracentesis and chest tube placement. This is a 57-year-old white female who was brought to the emergency room with increasing shortness of breath. She was getting progressively worse for the past several days and in the emergency room she was found to have chronic obstructive pulmonary disease with good exacerbation and the chest x-ray showed fairly large right pleural effusion and infiltrate and the patient was also noted to have multiple other chronic illnesses. She is known to have chronic atrial fibrillation, chronic congestive heart failure and patient was admitted to the hospital for further evaluation and treatment. For details of the physical examination at the time of admission please refer to the history and physical. HOSPITAL COURSE: The patient was started on IV antibiotics, IV Solu-Medrol, updraft treatments and patient was seen by Grief Counsellor Dr. Guzman Cast and patient was also seen by [facility] in consultation and she had congestive heart failure which was treated aggressively with diuretics and all her previous home medications were restarted. Patient has history of chronic anemia and her hemoglobin was below 7 and the patient had blood transfusion. Patient was also seen by infectious disease specialists, Dr. Castellon. As her pleural effusion was not improving, thoracentesis was done by Dr. Hinds and 1.6 liters of clear yellow fluid was drained out. Patient developed pneumothorax and patient had a chest tube inserted. As her condition became stable, social service was trying to make arrangements for discharge. Patient apparently is homeless now as she has no place to go and also she has chest tube and so the assistant media planner has made arrangements for her to be transferred to [facility] in [facility]. She will be transferred to that facility possibly today 05/13/2017 or as soon as the arrangements are completed. She will continue her current medications and current treatments there and she will continue on: 1. [place] 10/325 q.6 hours p.r.n. 2. DuoNeb updraft q.i.d. and p.r.n. 3. Xanax 1.25 mg p.o. b.i.d. p.r.n. 4. Xanax 0.5 mg q.h.s. p.r.n. 5. Lipitor 40 mg daily at bedtime. 6. Pulmicort inhaler b.i.d. 7. Flexeril 10 mg p.o. t.i.d. p.r.n. 8. ( ) 125 mcg daily. 9. Colace 200 mg p.o. daily. 10. Lovenox 40 mg q.12 hours. 11. Ferrous sulfate 325 mg p.o. daily. 12. Lasix 40 mg b.i.d. 13. Mucinex 600 mg p.o. q.12 hours. 14. Dilaudid 1 mg IV q.6h p.r.n. 15. Accu-Cheks a.c. and at bedtime. 16. Humalog sliding scale. 17. Solu-Medrol 40 mg IV q.8h 18. Singulair 10 mg p.o. daily at bedtime. 19. Potassium chloride 10 mEq p.o. daily. 20. Trazodone 50 mg daily at bedtime. She will be followed by the facility physician. [facility]
[2017-05-13 14:10] LABS: Hemoglobin A1C 5.4 % (4.2-6.1)
--- NOTE | 2017-05-13 14:27 | XR ---
EXAMINATION TYPE: XR chest 2V DATE OF EXAM: 05/13/2017 COMPARISON: 05/12/2017 TECHNIQUE: PA and lateral views submitted. HISTORY: Pneumothorax FINDINGS: Persistent pneumothorax noted with adjacent chest tube. Calcifications within the left lower lobe not ed. Heart is enlarged and there is diffuse hyperinflation suggestive of COPD. Basilar subsegmental co nsolidation is stable. IMPRESSION: 1. Stable right-sided pneumothorax
[2017-05-13] MEDS: ALPRAZolam 0.25 MG TAB PO PRN (14:57)
[2017-05-13 16:32] LABS: Glucose,Whole Blood 141 mg/dL (75-99)
[2017-05-13 20:50] LABS: Glucose,Whole Blood 290 mg/dL (75-99)
--- NOTE | 2017-05-13 22:29 | P.PN ---
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 Became profoundly weak. Was also having increasing amounts of pain to the right lower side of her chest. Because the she presented to the emergency center. Telemetry was some steroids and respiratory treatments and this has helped her as well as pain medications. She has less short of breath at the moment and she wasn't admission. But still is quite miserable. She sitting upright sitting forward relates this gives her some relief of the discomfort she has in her right lower chest toward the back. She is still short of breath compared to her baseline. She has no hemoptysis but does have a mild cough at times. She is not having significant sputum Production. He is feeling slightly better since the thoracentesis. Has been seen by cardiothoracic surgery with no plans for chest tube for her mild hydro-pneumothorax Objective - Vital Signs Vital signs: Vital Signs Temp 97.6 F 05/13/17 14:55 Pulse 88 05/13/17 19:53 Resp 18 05/13/17 16:35 BP 109/50 05/13/17 14:55 Pulse Ox 100 05/13/17 14:55 Intake & Output 05/13/17 05/13/17 05/14/17 06:59 18:59 06:59 Intake Total 1047.780 480 Output Total 660 3680 Balance 387.780 -3200 Weight 48 kg 48 kg Intake: Intake, IV Titration 687.780 Amount Insulin Regular 100 unit 87.780 In Sodium Chloride 0.9% 100 ml @ Titrate IV .Q0M MARY CARMEN Rx#:[id number] Sodium Chloride 0.9% 1, 600 000 ml @ 100 mls/hr IV . Q10H MARY CARMEN Rx#:[id number] Oral 360 480 Output: Chest Tube Drainage 10 130 Chest Tube Right Lateral 10 130 Chest Urine 650 3550 Uretheral ([place]) 650 3350 Other: Voiding Method Indwelling Catheter Indwelling Catheter # Voids 3 # Bowel Movements 1 1 - Exam 57-year-old woman who looks much older than her stated age. She is chronically ill. HEENT: Anicteric conjunctiva are pink and moist nasal mucosa grossly intact without significant lesions, there is no thrush. Poor dentition Neck: The neck is supple without significant lymphadenopathy or thyromegaly. Lungs: Symmetrical air entry with wheezes scattered throughout the lung iqbal. Evidence of decreased breath sounds breath sounds to the right base. The extensive dullness and egophony to the right base has resolved wit the chest tube Heart: irregular no S3 loud S4 There is no significant murmur click or rub, PMI was nondisplaced. Abdomen: Positive bowel sounds soft and nontender without palpable masses or organomegaly. There was no guarding or rebound. Extremities: The extremities have just trace edema. She has no tenderness over the joints. Skin the patient has changes of diabetes her lower extremities however she has a difficulty with chronically picking at her skin and has innumerable lesions that healed over arms and legs at this time. None of them are open are grossly draining at this time is evidence of some erythema to the coccyx. With this the Aquacel silver dressing has been applied. It has the foam border. Neuro: She is awake alert oriented to person place and time and does not exhibit any acute gross focal sensory motor deficits - Labs CBC & Chem 7: 05/13/17 07:48 05/13/17 07:48 Labs: Abnormal Lab Results - Last 24 Hours (Table) 05/12/17 05/13/17 05/13/17 Range/Units 23:15 01:30 03:06 WBC (3.8-10.6) k/uL Hgb (11.4-16.0) gm/dL Hct (34.0-46.0) % MCV (80.0-100.0) fL MCH (25.0-35.0) pg MCHC (31.0-37.0) g/dL RDW (11.5-15.5) % Neutrophils # (1.3-7.7) k/uL Sodium (137-145) mmol/L Chloride (98-107) mmol/L Carbon Dioxide (22-30) mmol/L BUN (7-17) mg/dL Glucose (74-99) mg/dL POC Glucose (mg/dL) 113 H 188 H 125 H (75-99) mg/dL AST (14-36) U/L Total Protein (6.3-8.2) g/dL Albumin (3.5-5.0) g/dL 05/13/17 05/13/1717 Range/Units 05:13 07:18 07:48 WBC 25.3 H* (3.8-10.6) k/uL Hgb 8.3 L (11.4-16.0) gm/dL Hct 28.9 L (34.0-46.0) % MCV 68.7 L (80.0-100.0) fL MCH 19.7 L (25.0-35.0) pg MCHC 28.7 L (31.0-37.0) g/dL RDW 16.4 H (11.5-15.5) % Neutrophils # 22.2 H (1.3-7.7) k/uL Sodium (137-145) mmol/L Chloride (98-107) mmol/L Carbon Dioxide (22-30) mmol/L BUN (7-17) mg/dL Glucose (74-99) mg/dL POC Glucose (mg/dL) 133 H 156 H (75-99) mg/dL AST (14-36) U/L Total Protein (6.3-8.2) g/dL Albumin (3.5-5.0) g/dL 05/13/17 05/13/17 05/13/17 Range/Units 07:48 11:14 16:19 WBC (3.8-10.6) k/uL Hgb (11.4-16.0) gm/dL Hct (34.0-46.0) % MCV (80.0-100.0) fL MCH (25.0-35.0) pg MCHC (31.0-37.0) g/dL RDW (11.5-15.5) % Neutrophils # (1.3-7.7) k/uL Sodium 135 L (137-145) mmol/L Chloride 93 L (98-107) mmol/L Carbon Dioxide 32 H (22-30) mmol/L BUN 47 H (7-17) mg/dL Glucose 146 H (74-99) mg/dL POC Glucose (mg/dL) 227 H 141 H (75-99) mg/dL AST 42 H (14-36) U/L Total Protein 5.4 L (6.3-8.2) g/dL Albumin 3.3 L (3.5-5.0) g/dL 05/13/17 Range/Units 20:36 WBC (3.8-10.6) k/uL Hgb (11.4-16.0) gm/dL Hct (34.0-46.0) % MCV (80.0-100.0) fL MCH (25.0-35.0) pg MCHC (31.0-37.0) g/dL RDW (11.5-15.5) % Neutrophils # (1.3-7.7) k/uL Sodium (137-145) mmol/L Chloride (98-107) mmol/L Carbon Dioxide (22-30) mmol/L BUN (7-17) mg/dL Glucose (74-99) mg/dL POC Glucose (mg/dL) 290 H (75-99) mg/dL AST (14-36) U/L Total Protein (6.3-8.2) g/dL Albumin (3.5-5.0) g/dL Assessment and Plan (1) COPD (chronic obstructive pulmonary disease) Status: Acute (2) Afib Status: Acute (3) Pleural effusion Narrative/Plan: 57-year-old female who has advanced COPD that is oxygen and inhaled steroid dependent, but continues to smoke. Presents to Hospital feeling increasing shortness of breath. Was associated with increasing amounts of discomfort to her right lower chest especially posterior. Chest ray and ultrasound reveal evidence of an increasing effusion to that area. Potentially will have a thoracentesis. Prior cultures have been negative. No history of MRSA. Given her complex history currently be treating with piperacillin tazobactam and Levaquin until we have further data. Blood cultures are negative so far. Sputum cultures negative so far. Legionella has come back as negative Mycoplasma is positive for old disease nothing acute Thoracentesis has occurred. Fluid is negative for infection but is an exudate is noted by the chemistry. She does feel symptomatically better since this. Has been seen by cardiothoracic surgery with no plans for surgery surgery. Cytology is negative for malignancy from the thoracentesis. Radiology consult has been requested for the pigtail Pleur-evac catheter placement allowed improvement of breathing . With current steroid therapy as well as the breathing treatments she is symptomatically improving. The patient does have a stage II area on the coccyx for which the Aquacel silver foam dressing is then applied. Advised to try to not always being is sitting up position to offload some pressure to her coccyx. Status: Acute Code(s): J90 - PLEURAL EFFUSION, NOT ELSEWHERE CLASSIFIED
[2017-05-13] MEDS: ALPRAZolam 0.5 MG TAB PO PRN (23:59)
[2017-05-14] MEDS: SODIUM CHLORIDE 0.9% 1,000 ML IV SCH ×2 (02:13→11:46)
[2017-05-14] MEDS: ATORVASTATIN 40 MG TAB PO SCH ×2 (02:13→20:24)
[2017-05-14] MEDS: ENOXAPARIN 40 MG/0.4 ML SYRINGE SQ SCH ×3 (02:24→20:24)
[2017-05-14] MEDS: guaiFENesin 600 MG TABLET.ER PO SCH ×3 (02:25→20:23)
[2017-05-14] MEDS: FUROSEMIDE 40 MG TAB PO SCH ×3 (02:25→20:24)
[2017-05-14] MEDS: traZODone HCL 50 MG TAB PO SCH ×2 (02:25→20:23)
[2017-05-14] MEDS: MONTELUKAST 10 MG TAB PO SCH ×2 (02:25→20:23)
[2017-05-14] MEDS: HYDROcodone/APAP 10-325MG 1 EACH TAB PO PRN ×3 (03:07→17:42)
[2017-05-14 08:03] LABS: Glucose,Whole Blood 124 mg/dL (75-99)
--- NOTE | 2017-05-14 08:05 | XR ---
EXAMINATION TYPE: XR chest 2V DATE OF EXAM: 05/14/2017 COMPARISON: 05/13/2017 HISTORY: Shortness of breath TECHNIQUE: Frontal and lateral views of the chest are obtained. FINDINGS: Stable right basilar pneumothorax with adjacent the chest catheter. Scattered senescent parenchymal changes noted. Hyperinflation compatible with COPD. No evidence for infiltrate. No evidence for atelectasis. Heart size is stable. Mediastinal structures are stable and grossly unremarkable. No evidence for hilar prominence. Degenerative changes dorsal spine. IMPRESSION: 1. Stable right-sided pneumothorax.
[2017-05-14] MEDS: HYDROmorphone 1 MG/ML 1 ML SYRINGE IVP PRN ×3 (08:27→23:44)
[2017-05-14] MEDS: DIGOXIN 125 MCG TAB PO SCH (08:29)
[2017-05-14] MEDS: INSULIN LISPRO (humaLOG) 300 UNIT/3 ML VIAL SQ SCH ×4 (08:29→20:33)
[2017-05-14] MEDS: DOCUSATE 100 MG CAP PO SCH (08:29)
[2017-05-14] MEDS: POTASSIUM CHLORIDE ER 10 MEQ TAB.ER.PRT PO SCH (08:29)
[2017-05-14] MEDS: methylPREDNISolone SOD SUCCI 40 MG/ML 1 ML VIAL IV SCH (08:31)
[2017-05-14] MEDS: IPRATROPIUM-ALBUTEROL 3 ML NEB INHALATION SCH ×4 (08:50→20:29)
[2017-05-14] MEDS: BUDESONIDE 0.5 MG/2 ML NEBU INHALATION SCH ×2 (08:50→20:29)
[2017-05-14] MEDS: FERROUS SULFATE 325 MG TAB PO SCH (11:45)
--- NOTE | 2017-05-14 12:06 | P.PN ---
Subjective 05/02/17 This is a 57-year-old female patient being seen, examined and evaluated. Patient is well-known to our services. This Patient comes in with complaints of shortness of breath that had been increasing over the last few days. The patient does have a significant medical history for CHF, COPD that is severe, chronic persistent asthma but severe, atrial fibrillation, renal insufficiency and liver disease. This patient has a known history for reoccurring pneumonia as well. Patient states she uses 4-5 L of supplemental oxygen at home at all times. Upon examination the patient's resting up in bed on 5 L of supplemental oxygen, she states she has shortness of breath with any minimal exertion as well as extensive conversation. Chest x-ray has been reviewed and shows an increasing right pleural effusion which is associated with atelectasis, possible pulmonary artery hypertension, and congestive heart failure. 05/03/17 upon examination today the patient's resting up in bed and continues to be on 5 L of supplemental oxygen. Patient continues to have shortness of breath with any minimal exertion and extensive conversation. Patient did undergo an ultrasound of the chest yesterday which revealed a right pleural effusion fluid pocket of 10.4 cm this has increased significantly since her last ultrasound of the chest which was done 02/08/2017 which showed a right pleural effusion pocket of 4.2 at that time. During that admission in January the effusion was too small to undergo a thoracentesis. Of note ,since its progression, the patient is a candidate to have the thoracentesis performed in regards to size. However the patient was on Coumadin for chronic A. fib and her INR yesterday was 2.9. Yesterday we discontinued the Coumadin and put the patient on Lovenox in preparation for thoracentesis. A repeat INR was performed today and is currently 3.6. We would like the patient's INR to be closer to 1.4 before we perform the thoracentesis. Repeat labs will be drawn tomorrow. 05/04/17 examination today the patient's resting up in bed and continues on 5 L of supplemental oxygen. Patient states she is a little less short of breath today than previously. However she still continues to have shortness of breath with exertion. Patient's INR today was 3.7, which is still too high to undergo a thoracentesis. Labs have been reviewed. We truly the increase in INR due to the patient being on Levaquin as a side effect. 05/05/17- upon examination today the patient is resting up in bed and continues on the 5 L of supplemental oxygen. The patient's INR today is 1.3 therefore we can go forth with the thoracentesis. The procedure as well as the risk and benefits have been discussed at length with the patient QUESTIONS have been answered. After the thoracentesis is completed the fluid will be sent for lab workup. The patient will be able to start back on her Coumadin tonight. The patient should continue with Lovenox until her INR is more than 1.8. Patient continues to have shortness of breath with exertion. 05/06/17- patient did undergo a thoracentesis yesterday. 1.6 L of clear yellow pleural fluid was removed. It was discovered on the post x-ray at the patient did have a 20% pneumothorax. The patient was asymptomatic at that time. The patient was to be watched closely overnight and have a repeat chest x-ray that evening which was stable and another one this morning which dates show a possible slight increase in the pneumothorax. CT of the chest without contrast was obtained and results are not readily available. We will consult cardiothoracic to follow the patient and interventional radiology to place a pigtail catheter. Upon examination the patient is resting up in bed and despite the pneumothorax the patient states her breathing is better today after having the fluid removed. Patient is still requiring 4-5 L of supplemental oxygen however she said her shortness of breath has decreased. Patient is afebrile no further complaints. 05/07/17 and 05/08/17, please refer to DR. JULIO Gao note, as he covered these days. 05/09/17-upon examination today the patient's resting up in bed on 5 L of supplemental oxygen. Chest x-rays have been reviewed and the patient still has a pneumothorax that has not improved, pneumothorax remains about 30%. Therefore the patient will ultimately require a chest tube placement by interventional radiology. Patient continues to feel short of breath and tight. Today she states she feels slightly worse than yesterday in regards to her breathing. We'll recheck her CBC CMP and PT/INR. Patient has had her Coumadin on hold since pneumothorax and she has been receiving Lovenox. 05/10/17- on examination today the patient has just came back from interventional radiology after pigtail chest tube insertion. There is approximately 300 ML's of serosanguineous drainage noted upon arrival and the pleural VAC has not been attached to suction yet at this time. Patient will be hooked up to wall suction. Patient states that this initially received the chest tube she had immediate relief in her shortness of breath which decreased significantly. Patient states she is breathing much better post procedure. Patient is noted to be sitting up in bed and continues on 5 L of supplemental oxygen. Labs and radiology reports have been reviewed. 05/11/17- upon examination today the patient is resting up in bed and states she feels better today. Patient continues on 5 L of supplemental oxygen. Patient still has her chest tube in and has had approximately 700 ML's of serosanguineous output total since it was inserted. Her appetite has improved slightly as well. Patient states she is much more comfortable today. She continues on IV Solu-Medrol, updrafts and antibiotics. 05/12/17- today the patient is seen resting in bed on 4-5 L of oxygen. The patient states that she continues to have a productive cough with congestion. She is breathing easier with less effort. Appetite continues to improve. Her chest tube shows an output of approximately 875 ML's total output. Continues to be hooked up to suction. States her appetite continues to wax and wane. Chest x-ray from today has been reviewed patient's hydropneumothorax has been improved and remains about 15%. 05/13/17-today the patient seen resting up in bed on 4-5 L of supplemental oxygen via nasal cannula. She continues to have a productive cough with congestion however she states this is slightly improved today. She continues to breathe easier with less effort. Currently she is eating. Her chest tube shows approximately a total of 1100 ML's of serosanguineous drainage. Coumadin is still currently on hold and she is utilizing Lovenox. Chest x-ray is pending. No further complaints no overnight events. She is utilizing her incentive spirometer and pulls volumes of 1750. We will decrease her steroids today. 05/14/17, patient seen and evaluated examined today she is complaining of some shortness of breath and congestion however not producing much sputum her chest x -ray from today has been reviewed very small residual pneumothorax and small effusions seen she has put out another 350 mL in the last 48 hours the pleural VAC in control is adequate chest tube is connected with the 20 cm water of section is doing IS regularly on 4-5 L oxygen with stable oxygenation Objective - Vital Signs Vital signs: Vital Signs Temp 97.5 F L 05/14/17 08:27 Pulse 84 05/14/17 12:01 Resp 16 05/14/17 08:27 BP 109/74 05/14/17 08:27 Pulse Ox 100 05/14/17 08:27 Intake & Output 05/13/17 05/14/17 05/14/17 18:59 06:59 18:59 Intake Total 480 Output Total 3680 2390 Balance -3200 -2390 Weight 48 kg 51 kg Intake: Oral 480 Output: Chest Tube Drainage 130 190 Chest Tube Right Lateral 130 190 Chest Urine 3550 2200 Uretheral ([place]) 3350 900 Other: Voiding Method Indwelling Catheter Indwelling Catheter Indwelling Catheter # Voids 3 # Bowel Movements 1 - Exam GENERAL EXAM: Alert, cachectic, comfortable in no apparent distress. HEAD: Normocephalic. EYES: Normal reaction of pupils, equal size. NOSE: Clear with pink turbinates. THROAT: No erythema or exudates. NECK: No masses, no JVD. CHEST: No chest wall deformity. LUNGS: Poor air entry is present, scattered rhonchi as well as expiratory wheezes noted throughout. Decreased breath sounds on the right base, however slightly improved. Right-sided pigtail chest tube in place. CVS: S1 and S2 normal with no audible mumurs, regular rhythm. ABDOMEN: No hepatosplenomegaly, normal bowel sounds, no guarding or rigidity. EXTREMITIES: Trace edema noted, pedal pulses palpable. SKIN: No rashes, dressing in place to coccyx wound CENTRAL NERVOUS SYSTEM: No focal deficits, tone is normal in all 4 extremities. - Labs CBC & Chem 7: 05/13/17 07:48 05/13/17 07:48 Labs: Abnormal Lab Results - Last 24 Hours (Table) 05/13/17 05/13/17 05/14/17 Range/Units 16:19 20:36 07:42 POC Glucose (mg/dL) 141 H 290 H 124 H (75-99) mg/dL Assessment and Plan Plan: Right-sided small residual pneumothorax Right-sided pleural effusion with right sided pneumonia suspect mixed/gram- negative in nature Acute exacerbation of chronic obstructive pulmonary disease Acute on chronic hypoxic respiratory failure Congestive heart failure Probable pulmonary hypertension Atrial fibrillation Chronic anemia Severe protein calorie malnutrition Plan Medications have been reviewed and will be continued as ordered. Decrease her solumedrol today. Continue with IV antibiotics. Chest tube to wall suction, continue to monitor output. We will continue to monitor the pneumothorax. Repeat labs tomorrow. Due to the pneumothorax we will continue to hold the patient's Coumadin at this time and continue on the Lovenox. Pleural fluid has been sent for lab workup. Continue with Solu-Medrol and budesonide as well as Mucinex. Repeat labs in the morning. Cardiology on consult. Infectious disease on consult. Continue with pulmonary hygiene, coughing and deep breathing exercises, and supportive care. Supplemental oxygen to maintain oxygen saturations of 92% or better. Continue nebulizer treatments. GI and DVT prophylaxis. Ensure 3 times a day with meals. We will continue to monitor labs/results and adjust treatment as necessary. Further recommendations pending.
[2017-05-14 12:30] LABS: Glucose,Whole Blood 238 mg/dL (75-99)
[2017-05-14] MEDS: ALPRAZolam 0.25 MG TAB PO PRN (17:43)
[2017-05-14 18:06] LABS: Glucose,Whole Blood 243 mg/dL (75-99)
[2017-05-14 20:21] LABS: Glucose,Whole Blood 169 mg/dL (75-99)
[2017-05-14] MEDS: ALPRAZolam 0.5 MG TAB PO PRN (23:55)
[2017-05-15] MEDS: HYDROcodone/APAP 10-325MG 1 EACH TAB PO PRN ×3 (02:34→17:14)
[2017-05-15 07:43] LABS: Glucose,Whole Blood 88 mg/dL (75-99)
[2017-05-15] MEDS: SODIUM CHLORIDE 0.9% 1,000 ML IV SCH ×3 (07:56→12:05)
[2017-05-15 07:58] LABS: ALT 40 U/L (9-52); AST 24 U/L (14-36); Alkaline Phosphatase 61 U/L (38-126); Anion Gap 4 mmol/L; Blood Urea Nitrogen 36 mg/dL (7-17); Carbon Dioxide 27 mmol/L (22-30); Chloride 108 mmol/L (98-107); Glucose 53 mg/dL (74-99); Non-African American GFR(MDRD) >60 (>60 ml/min/1.73 sqM); Potassium 3.1 mmol/L (3.5-5.1); Sodium 139 mmol/L (137-145); Total Bilirubin 0.2 mg/dL (0.2-1.3)
[2017-05-15 07:59] LABS: Anisocytosis Slight; Basophils # (A) 0.1 k/uL (0-0.2); Basophils % (A) 0 %; CHCM 27.5; Eosinophils # (A) 0.1 k/uL (0-0.7); Eosinophils % (A) 1 %; HDW 3.39; Hypochromasia Marked; Luc # (Auto) 0.32; Luc % (Auto) 2; Lymphocytes # (A) 2.9 k/uL (1.0-4.8); Lymphocytes % (A) 16 %; MCH 20.3 pg (25.0-35.0); MCHC 29.3 g/dL (31.0-37.0); MCV 69.4 fL (80.0-100.0); Microcytosis Marked; Monocytes # (A) 1.1 k/uL (0-1.0); Monocytes % (A) 6 %; Neutrophils # (A) 13.6 k/uL (1.3-7.7); Neutrophils % (A) 75 %; RBC 2.84 m/uL (3.80-5.40); RDW 17.4 % (11.5-15.5); WBC 18.1 k/uL (3.8-10.6); WBC (Perox) 18.42
[2017-05-15] MEDS: DOCUSATE 100 MG CAP PO SCH (07:59)
[2017-05-15] MEDS: DIGOXIN 125 MCG TAB PO SCH (07:59)
[2017-05-15] MEDS: HYDROmorphone 1 MG/ML 1 ML SYRINGE IVP PRN ×2 (07:59→14:47)
[2017-05-15] MEDS: guaiFENesin 600 MG TABLET.ER PO SCH ×2 (08:00→20:45)
[2017-05-15] MEDS: FUROSEMIDE 40 MG TAB PO SCH ×2 (08:00→20:45)
[2017-05-15] MEDS: methylPREDNISolone SOD SUCCI 40 MG/ML 1 ML VIAL IV SCH (08:00)
[2017-05-15] MEDS: ENOXAPARIN 40 MG/0.4 ML SYRINGE SQ SCH ×2 (08:00→20:45)
[2017-05-15 08:01] LABS: HCT 19.7 % (34.0-46.0); HGB 5.8 gm/dL (11.4-16.0)
[2017-05-15] MEDS: POTASSIUM CHLORIDE ER 10 MEQ TAB.ER.PRT PO SCH (08:01)
[2017-05-15] MEDS: FERROUS SULFATE 325 MG TAB PO SCH (08:02)
[2017-05-15] MEDS: INSULIN LISPRO (humaLOG) 300 UNIT/3 ML VIAL SQ SCH ×4 (08:06→20:45)
[2017-05-15 08:10] LABS: Calcium 6.4 mg/dL (8.4-10.2)
[2017-05-15] MEDS: BUDESONIDE 0.5 MG/2 ML NEBU INHALATION SCH ×2 (08:26→20:27)
[2017-05-15] MEDS: IPRATROPIUM-ALBUTEROL 3 ML NEB INHALATION SCH ×4 (08:26→20:27)
--- NOTE | 2017-05-15 08:31 | XR ---
EXAMINATION TYPE: XR chest 2V DATE OF EXAM: 05/15/2017 COMPARISON: 05/14/2017 HISTORY: Shortness of breath TECHNIQUE: Frontal and lateral views of the chest are obtained. FINDINGS: Scattered senescent parenchymal changes noted. Hyperinflation compatible with COPD. New Right lower lobe infiltrate. Right basilar catheter is unchanged in position. Previously noted lo culated pneumothorax is less conspicuous on the current evaluation. There is a superimposed pulmonary venous congestion with cardiomegaly. Mediastinal structures are stable and grossly unremarkable. No evidence for hilar prominence. Degenerative changes dorsal spine. IMPRESSION: 1. New Right lower lobe infiltrate. Right basilar catheter is unchanged in position. Previously noted loculated pneumothorax is less conspicuous on the current evaluation. There is a superimposed pulmon ab venous congestion with cardiomegaly.
[2017-05-15] MEDS ORDERED: Potassium Replacement Protocol 1 EACH MISC MISCELLANE PRN (10:47)
[2017-05-15] MEDS ORDERED: POTASSIUM CHLORIDE 10 MEQ, LIDOCAINE 2% INJ 10 MG in SODIUM CHLORIDE 0.9% 100 ML IV SCH (11:00)
--- NOTE | 2017-05-15 11:31 | P.PN ---
Subjective 05/02/17 This is a 57-year-old female patient being seen, examined and evaluated. Patient is well-known to our services. This Patient comes in with complaints of shortness of breath that had been increasing over the last few days. The patient does have a significant medical history for CHF, COPD that is severe, chronic persistent asthma but severe, atrial fibrillation, renal insufficiency and liver disease. This patient has a known history for reoccurring pneumonia as well. Patient states she uses 4-5 L of supplemental oxygen at home at all times. Upon examination the patient's resting up in bed on 5 L of supplemental oxygen, she states she has shortness of breath with any minimal exertion as well as extensive conversation. Chest x-ray has been reviewed and shows an increasing right pleural effusion which is associated with atelectasis, possible pulmonary artery hypertension, and congestive heart failure. 05/03/17 upon examination today the patient's resting up in bed and continues to be on 5 L of supplemental oxygen. Patient continues to have shortness of breath with any minimal exertion and extensive conversation. Patient did undergo an ultrasound of the chest yesterday which revealed a right pleural effusion fluid pocket of 10.4 cm this has increased significantly since her last ultrasound of the chest which was done 02/08/2017 which showed a right pleural effusion pocket of 4.2 at that time. During that admission in January the effusion was too small to undergo a thoracentesis. Of note ,since its progression, the patient is a candidate to have the thoracentesis performed in regards to size. However the patient was on Coumadin for chronic A. fib and her INR yesterday was 2.9. Yesterday we discontinued the Coumadin and put the patient on Lovenox in preparation for thoracentesis. A repeat INR was performed today and is currently 3.6. We would like the patient's INR to be closer to 1.4 before we perform the thoracentesis. Repeat labs will be drawn tomorrow. 05/04/17 examination today the patient's resting up in bed and continues on 5 L of supplemental oxygen. Patient states she is a little less short of breath today than previously. However she still continues to have shortness of breath with exertion. Patient's INR today was 3.7, which is still too high to undergo a thoracentesis. Labs have been reviewed. We truly the increase in INR due to the patient being on Levaquin as a side effect. 05/05/17- upon examination today the patient is resting up in bed and continues on the 5 L of supplemental oxygen. The patient's INR today is 1.3 therefore we can go forth with the thoracentesis. The procedure as well as the risk and benefits have been discussed at length with the patient QUESTIONS have been answered. After the thoracentesis is completed the fluid will be sent for lab workup. The patient will be able to start back on her Coumadin tonight. The patient should continue with Lovenox until her INR is more than 1.8. Patient continues to have shortness of breath with exertion. 05/06/17- patient did undergo a thoracentesis yesterday. 1.6 L of clear yellow pleural fluid was removed. It was discovered on the post x-ray at the patient did have a 20% pneumothorax. The patient was asymptomatic at that time. The patient was to be watched closely overnight and have a repeat chest x-ray that evening which was stable and another one this morning which dates show a possible slight increase in the pneumothorax. CT of the chest without contrast was obtained and results are not readily available. We will consult cardiothoracic to follow the patient and interventional radiology to place a pigtail catheter. Upon examination the patient is resting up in bed and despite the pneumothorax the patient states her breathing is better today after having the fluid removed. Patient is still requiring 4-5 L of supplemental oxygen however she said her shortness of breath has decreased. Patient is afebrile no further complaints. 05/07/17 and 05/08/17, please refer to DR. JULIO Gao note, as he covered these days. 05/09/17-upon examination today the patient's resting up in bed on 5 L of supplemental oxygen. Chest x-rays have been reviewed and the patient still has a pneumothorax that has not improved, pneumothorax remains about 30%. Therefore the patient will ultimately require a chest tube placement by interventional radiology. Patient continues to feel short of breath and tight. Today she states she feels slightly worse than yesterday in regards to her breathing. We'll recheck her CBC CMP and PT/INR. Patient has had her Coumadin on hold since pneumothorax and she has been receiving Lovenox. 05/10/17- on examination today the patient has just came back from interventional radiology after pigtail chest tube insertion. There is approximately 300 ML's of serosanguineous drainage noted upon arrival and the pleural VAC has not been attached to suction yet at this time. Patient will be hooked up to wall suction. Patient states that this initially received the chest tube she had immediate relief in her shortness of breath which decreased significantly. Patient states she is breathing much better post procedure. Patient is noted to be sitting up in bed and continues on 5 L of supplemental oxygen. Labs and radiology reports have been reviewed. 05/11/17- upon examination today the patient is resting up in bed and states she feels better today. Patient continues on 5 L of supplemental oxygen. Patient still has her chest tube in and has had approximately 700 ML's of serosanguineous output total since it was inserted. Her appetite has improved slightly as well. Patient states she is much more comfortable today. She continues on IV Solu-Medrol, updrafts and antibiotics. 05/12/17- today the patient is seen resting in bed on 4-5 L of oxygen. The patient states that she continues to have a productive cough with congestion. She is breathing easier with less effort. Appetite continues to improve. Her chest tube shows an output of approximately 875 ML's total output. Continues to be hooked up to suction. States her appetite continues to wax and wane. Chest x-ray from today has been reviewed patient's hydropneumothorax has been improved and remains about 15%. 05/13/17-today the patient seen resting up in bed on 4-5 L of supplemental oxygen via nasal cannula. She continues to have a productive cough with congestion however she states this is slightly improved today. She continues to breathe easier with less effort. Currently she is eating. Her chest tube shows approximately a total of 1100 ML's of serosanguineous drainage. Coumadin is still currently on hold and she is utilizing Lovenox. Chest x-ray is pending. No further complaints no overnight events. She is utilizing her incentive spirometer and pulls volumes of 1750. We will decrease her steroids today. 05/14/17, patient seen and evaluated examined today she is complaining of some shortness of breath and congestion however not producing much sputum her chest x -ray from today has been reviewed very small residual pneumothorax and small effusions seen she has put out another 350 mL in the last 48 hours the pleural VAC in control is adequate chest tube is connected with the 20 cm water of section is doing IS regularly on 4-5 L oxygen with stable oxygenation 05/15/17, patient seen and evaluated examined care plan discussed with the nurse at length critical care time spent 35 minutes chest x-ray from today reviewed the laboratory data reviewed as well care plan discussed with the primary service, patient is complaining of some weakness and tiredness has been congested as well and slightly more short of breath however her chest x-ray looks much improved she had put out more than 300 mL and pleural VAC December chest x-ray from today reveal almost resolution of pneumothorax some reexpansion pulmonary edema in the right lower lobe versus right lower lobe pneumonia cannot be excluded she does have cough but no sputum is coming out she remains on 4 L oxygen, she is being planned for replacement of calcium transfusion of 2 unit packed RBC replacement of potassium and placement of new peripheral IVs antibiotics in the form of IV Zosyn is being started Objective - Vital Signs Vital signs: Vital Signs Temp 97.7 F 05/15/17 08:15 Pulse 72 05/15/17 08:40 Resp 20 05/15/17 08:15 BP 108/57 05/15/17 08:15 Pulse Ox 100 05/15/17 08:15 Intake & Output 05/14/17 05/15/17 05/15/17 18:59 06:59 18:59 Intake Total 800 800 Output Total 1400 3220 220 Balance -600 -2420 -220 Weight 52 kg Intake: IV 800 800 Sodium Chloride 0.9% 1, 800 800 000 ml @ 100 mls/hr IV . Q10H [facility] Rx#:[id number] Output: Chest Tube Drainage 100 220 220 Chest Tube Right Lateral 100 220 220 Chest Urine 1300 3000 Other: Voiding Method Indwelling Catheter Indwelling Catheter # Voids 3 # Bowel Movements 1 1 - Exam GENERAL EXAM: Alert, cachectic, comfortable in no apparent distress. HEAD: Normocephalic. EYES: Normal reaction of pupils, equal size. NOSE: Clear with pink turbinates. THROAT: No erythema or exudates. NECK: No masses, no JVD. CHEST: No chest wall deformity. LUNGS: Poor air entry is present, scattered rhonchi as well as expiratory wheezes noted throughout. Decreased breath sounds on the right base, however slightly improved. Right-sided pigtail chest tube in place. CVS: S1 and S2 normal with no audible mumurs, regular rhythm. ABDOMEN: No hepatosplenomegaly, normal bowel sounds, no guarding or rigidity. EXTREMITIES: Trace edema noted, pedal pulses palpable. SKIN: No rashes, dressing in place to coccyx wound CENTRAL NERVOUS SYSTEM: No focal deficits, tone is normal in all 4 extremities. - Labs CBC & Chem 7: 05/15/17 07:11 05/15/17 07:11 Labs: Abnormal Lab Results - Last 24 Hours (Table) 05/14/17 05/14/17 05/14/17 Range/Units 12:23 17:49 20:08 WBC (3.8-10.6) k/uL RBC (3.80-5.40) m/uL Hgb (11.4-16.0) gm/dL Hct (34.0-46.0) % MCV (80.0-100.0) fL MCH (25.0-35.0) pg MCHC (31.0-37.0) g/dL RDW (11.5-15.5) % Plt Count (150-450) k/uL Neutrophils # (1.3-7.7) k/uL Monocytes # (0-1.0) k/uL Potassium (3.5-5.1) mmol/L Chloride (98-107) mmol/L BUN (7-17) mg/dL Creatinine (0.52-1.04) mg/dL Glucose (74-99) mg/dL POC Glucose (mg/dL) 238 H 243 H 169 H (75-99) mg/dL Calcium (8.4-10.2) mg/dL Total Protein (6.3-8.2) g/dL Albumin (3.5-5.0) g/dL 05/15/17 05/15/17 Range/Units 07:11 07:11 WBC 18.1 H (3.8-10.6) k/uL RBC 2.84 L (3.80-5.40) m/uL Hgb 5.8 L* D (11.4-16.0) gm/dL Hct 19.7 L* (34.0-46.0) % MCV 69.4 L (80.0-100.0) fL MCH 20.3 L (25.0-35.0) pg MCHC 29.3 L (31.0-37.0) g/dL RDW 17.4 H (11.5-15.5) % Plt Count 125 L (150-450) k/uL Neutrophils # 13.6 H (1.3-7.7) k/uL Monocytes # 1.1 H (0-1.0) k/uL Potassium 3.1 L (3.5-5.1) mmol/L Chloride 108 H (98-107) mmol/L BUN 36 H (7-17) mg/dL Creatinine 0.51 L (0.52-1.04) mg/dL Glucose 53 L (74-99) mg/dL POC Glucose (mg/dL) (75-99) mg/dL Calcium 6.4 L* (8.4-10.2) mg/dL Total Protein 4.0 L (6.3-8.2) g/dL Albumin 2.1 L (3.5-5.0) g/dL Assessment and Plan Plan: Electrolyte imbalance with hypokalemia and hypocalcemia Right-sided small residual pneumothorax, improving significantly Right-sided pleural effusion with right sided pneumonia suspect mixed/gram- negative in nature, on broad-spectrum antibiotics Severe microcytic anemia, likely anemia of chronic disease, doubt acute blood loss Acute on chronic hypoxic respiratory failure Congestive heart failure, likely related to valvular heart disease and acute on chronic systolic heart failure Probable pulmonary hypertension Atrial fibrillation Chronic anemia Severe protein calorie malnutrition Acute exacerbation of chronic obstructive pulmonary disease Plan Will additional peripheral IVs, if unable to obtain will set her up for PICC line, patient will get potassium replacement along with calcium replacement and transfusion of blood Lanie Gutierrez when the antibiotics are being started we'll keep her over here on fifth floor for now Medications have been reviewed and will be continued as ordered. Continue with IV antibiotics. Maintain Chest tube to wall suction, continue to monitor output, hopefully chest tube to be discontinued in next 24-48 hours. We will continue to monitor the pneumothorax. Repeat labs tomorrow. Due to the pneumothorax we will continue to hold the patient's Coumadin at this time and continue on the Lovenox. Pleural fluid has been sent for lab workup. Continue with Solu- Medrol and budesonide as well as Mucinex. Repeat labs in the morning. Cardiology on consult. Infectious disease on consult. Continue with pulmonary hygiene, coughing and deep breathing exercises, and supportive care. Supplemental oxygen to maintain oxygen saturations of 92% or better. Continue nebulizer treatments. GI and DVT prophylaxis. Ensure 3 times a day with meals. We will continue to monitor labs/results and adjust treatment as necessary. Further recommendations pending. Critical care time spent 35 minutes Time with Patient: Greater than 30
[2017-05-15 11:46] LABS: Glucose,Whole Blood 197 mg/dL (75-99)
[2017-05-15] MEDS: CALCIUM GLUCONATE 1,000 MG in SODIUM CHLORIDE 0.9% 100 ML IVPB SCH ×2 (12:13→14:48)
[2017-05-15] MEDS ORDERED: POTASSIUM CHLORIDE ER 10 MEQ TAB.ER.PRT PO ONE (13:00)
[2017-05-15 17:19] LABS: Glucose,Whole Blood 209 mg/dL (75-99)
[2017-05-15 19:39] LABS: Anisocytosis Slight; CH 21.9; CHCM 29.9; HCT 29.5 % (34.0-46.0); HDW 4.31; Hypochromasia Marked; MCH 23.1 pg (25.0-35.0); MCHC 31.5 g/dL (31.0-37.0); MCV 73.2 fL (80.0-100.0); Mean Platelet Volume 7.5; Microcytosis Moderate; Poikilocytosis Moderate; RBC 4.03 m/uL (3.80-5.40); RDW 19.3 % (11.5-15.5); WBC 22.9 k/uL (3.8-10.6)
[2017-05-15 19:42] LABS: Anion Gap 8 mmol/L; Blood Urea Nitrogen 45 mg/dL (7-17); Calcium 8.7 mg/dL (8.4-10.2); Carbon Dioxide 31 mmol/L (22-30); Chloride 96 mmol/L (98-107); Glucose 165 mg/dL (74-99); Non-African American GFR(MDRD) >60 (>60 ml/min/1.73 sqM); Potassium 4.5 mmol/L (3.5-5.1); Sodium 135 mmol/L (137-145)
[2017-05-15 19:45] LABS: HGB 9.3 gm/dL (11.4-16.0)
[2017-05-15 20:34] LABS: Glucose,Whole Blood 162 mg/dL (75-99)
[2017-05-15] MEDS: ATORVASTATIN 40 MG TAB PO SCH (20:45)
[2017-05-15] MEDS: MONTELUKAST 10 MG TAB PO SCH (20:45)
[2017-05-15] MEDS: HYDROmorphone 1 MG/ML 1 ML SYRINGE IVP SCH (22:13)
[2017-05-15] MEDS: traZODone HCL 50 MG TAB PO SCH (22:15)
[2017-05-15] MEDS: PIPERACILLIN-TAZOBACTAM 3.375 GM in DEXTROSE/WATER 1 50ML.BAG IVPB SCH (23:04)
[2017-05-15] MEDS: ALPRAZolam 0.5 MG TAB PO PRN (23:04)
[2017-05-16] MEDS: HYDROcodone/APAP 10-325MG 1 EACH TAB PO PRN ×4 (00:35→19:08)
[2017-05-16] MEDS: HYDROmorphone 1 MG/ML 1 ML SYRINGE IVP PRN ×2 (01:42→09:12)
[2017-05-16] MEDS: SODIUM CHLORIDE 0.9% 1,000 ML IV SCH ×3 (06:54→17:43)
[2017-05-16 07:08] LABS: Glucose,Whole Blood 92 mg/dL (75-99)
--- NOTE | 2017-05-16 07:47 | XR ---
EXAMINATION TYPE: XR chest 2V DATE OF EXAM: 05/16/2017 COMPARISON: Prior chest x-ray 05/15/2017 HISTORY: Follow-up chest tube placement TECHNIQUE: Frontal and lateral views of the chest are obtained. FINDINGS: Right-sided pigtail catheter remains in place at the level of the right costophrenic angle . No evident pneumothorax. No significant interval change. Heart remains enlarged. Question basilar a ir space disease or atelectasis. Interstitium remains prominent. Evidence of old granulomatous diseas e again noted. Pulmonary artery is prominent. No sizable effusion. IMPRESSION: Essentially stable exam.
[2017-05-16] MEDS: PIPERACILLIN-TAZOBACTAM 3.375 GM in DEXTROSE/WATER 1 50ML.BAG IVPB SCH ×2 (07:57→15:55)
[2017-05-16] MEDS: INSULIN LISPRO (humaLOG) 300 UNIT/3 ML VIAL SQ SCH ×4 (07:57→21:19)
[2017-05-16] MEDS: POTASSIUM CHLORIDE ER 10 MEQ TAB.ER.PRT PO SCH (08:01)
[2017-05-16] MEDS: guaiFENesin 600 MG TABLET.ER PO SCH ×2 (08:01→21:17)
[2017-05-16] MEDS: DOCUSATE 100 MG CAP PO SCH (08:01)
[2017-05-16] MEDS: ENOXAPARIN 40 MG/0.4 ML SYRINGE SQ SCH ×2 (08:01→21:17)
[2017-05-16] MEDS: methylPREDNISolone SOD SUCCI 40 MG/ML 1 ML VIAL IV SCH (08:02)
[2017-05-16] MEDS: FERROUS SULFATE 325 MG TAB PO SCH (08:02)
[2017-05-16] MEDS: DIGOXIN 125 MCG TAB PO SCH (08:02)
[2017-05-16] MEDS: FUROSEMIDE 40 MG TAB PO SCH ×2 (08:02→21:17)
[2017-05-16 08:06] LABS: Anisocytosis Slight; Basophils # (A) 0.1 k/uL (0-0.2); Basophils % (A) 0 %; CH 21.9; CHCM 30.2; Eosinophils # (A) 0.1 k/uL (0-0.7); Eosinophils % (A) 1 %; HCT 28.2 % (34.0-46.0); HDW 4.28; HGB 8.6 gm/dL (11.4-16.0); Hypochromasia Marked; Luc # (Auto) 0.33; Luc % (Auto) 2; Lymphocytes # (A) 2.8 k/uL (1.0-4.8); Lymphocytes % (A) 17 %; MCHC 30.4 g/dL (31.0-37.0); MCV 72.3 fL (80.0-100.0); Mean Platelet Volume 8.5; Microcytosis Marked; Monocytes # (A) 1.1 k/uL (0-1.0); Monocytes % (A) 6 %; Neutrophils # (A) 12.7 k/uL (1.3-7.7); Neutrophils % (A) 74 %; Poikilocytosis Moderate; RDW 19.7 % (11.5-15.5); WBC 17.1 k/uL (3.8-10.6)
[2017-05-16 08:12] LABS: ALT 46 U/L (9-52); AST 28 U/L (14-36); Alkaline Phosphatase 92 U/L (38-126); Anion Gap 9 mmol/L; Blood Urea Nitrogen 43 mg/dL (7-17); Carbon Dioxide 31 mmol/L (22-30); Chloride 99 mmol/L (98-107); Glucose 102 mg/dL (74-99); Non-African American GFR(MDRD) >60 (>60 ml/min/1.73 sqM); Potassium 3.8 mmol/L (3.5-5.1); Sodium 139 mmol/L (137-145); Total Bilirubin 0.7 mg/dL (0.2-1.3); Total Protein 5.3 g/dL (6.3-8.2)
[2017-05-16] MEDS: IPRATROPIUM-ALBUTEROL 3 ML NEB INHALATION SCH ×4 (08:31→20:37)
[2017-05-16] MEDS: BUDESONIDE 0.5 MG/2 ML NEBU INHALATION SCH ×2 (08:31→20:37)
--- NOTE | 2017-05-16 10:07 | P.NPCON ---
History of Present Illness - History of Present Illness Reason for consultation: Hypocalcemia History of present illness: Patient is a 57-year-old female seen in renal consultation for hypocalcemia. Patient presented to the hospital on 05/02/2017 with dyspnea. She was noted to have a right-sided pleural effusion and underwent a thoracentesis with 1.6 L drained. She did develop a pneumothorax which has been improving. She had a chest tube placed on May 10. She is also noted to have a right sided pneumonia for which she's currently on IV antibiotics. Sputum culture has been positive for Corynebacterium. Patient is currently resting in bed. Dyspnea is gradually improving. Denies vomiting or diarrhea. Denies use of NSAIDs. GFR is at baseline with creatinine is 0.66 today. Her hemoglobin was down to 5.8 yesterday for which she did receive blood transfusion and his 8.6 this morning. Her calcium levels also down to 6.4 yesterday for an albumin level of 2.1. Her calcium today is 8.0 and albumin is 3.2. She did receive 2 g of IV calcium gluconate yesterday. She is currently also maintain a loop diuretics at a dose of 40 mg twice daily. Hemodynamically she stable. Admits to good urine output. No hematuria or dysuria. Vital signs are stable. General: The patient appeared well nourished and normally developed. HEENT: Head exam is unremarkable. Neck is without jugular venous distension. LUNGS: Mild wheezing at bases. Breath sounds decreased. HEART: Rate and Rhythm are regular. First and second heart sounds normal. No murmurs, rubs or gallops. ABDOMEN: Abdominal exam reveals normal bowel sounds. Non-tender and non- distended. No evidence of peritonitis. EXTREMITITES: No clubbing, cyanosis, or edema. Past Medical History Past Medical History: Atrial Fibrillation, Asthma, Heart Failure, COPD, Diabetes Mellitus, GERD/Reflux, Liver Disease, Pneumonia, Renal Disease, Respiratory Disorder, Skin Disorder Additional Past Medical History / Comment(s): Severe mitral valve stenosis and severe tricuspid valve regurgitation, O2 at 5L/NC ATC, current decub lower back per pt, UTI with sepsis, anemia, elevated liver enzymes in the past, chronic renal dx, Afib and has had RVR in past, chronic back pain. History of Any Multi-Drug Resistant Organisms: VRE Date of last positivie culture/infection: 10/25/16 MDRO Source:: Urine Past Surgical History: Hysterectomy Additional Past Surgical History / Comment(s): 2 mitral valve balloon valvuloplasty, colonoscopy, PICC line insertion (since removed). Past Anesthesia/Blood Transfusion Reactions: No Reported Reaction Additional Past Anesthesia/Blood Transfusion Reaction / Comment(s): Pt has received blood in past without reaction. Additional Psychological History / Comment(s): aleksandr. Lives with adult daughter and her spouse. Has nebulizer and glucose monitor. no experience or international travel. No animal exposures. Positive tobacco use. No current alcohol or injection drug use Smoking Status: Current every day smoker - Past Family History Father Family Medical History: Dementia Additional Family Medical History / Comment(s): Father is in his 80's Mother Family Medical History: Myocardial Infarction (HI) Additional Family Medical History / Comment(s): valve disorder. Mother of a HI in her 30's Medications and Allergies Home Medications Medication Instructions Recorded Confirmed Type HYDROcodone/APAP 10-325MG [[place] 1 tab PO Q8H PRN 05/19/15 05/02/17 History 10-325] Ipratropium/Albuterol Sulfate 1 puff INHALATION RT-QID PRN 05/19/15 05/02/17 History [Combivent Respimat Inhaler] Albuterol Nebulized [Ventolin 2.5 mg INHALATION RT-QID PRN 02/01/17 05/02/17 History Nebulized] Digoxin [Digitek] 125 mcg PO DAILY 02/01/17 05/02/17 History Atorvastatin [Lipitor] 40 mg PO HS 05/02/17 05/02/17 History Furosemide [Lasix] 40 mg PO BID 05/02/17 05/02/17 History Montelukast [Singulair] 10 mg PO HS 05/02/17 05/02/17 History Potassium Chloride ER [K-Dur 10] 10 meq PO DAILY 05/02/17 05/02/17 History Warfarin [Coumadin] 2 mg PO HS 05/02/17 05/02/17 History traZODone HCL [Desyrel] 50 mg PO HS 05/02/17 05/02/17 History Allergies Allergy/AdvReac Type Severity Reaction Status Date / Time aspirin Allergy Unknown Verified 05/02/17 08:20 Physical Exam Vitals: Vital Signs Temp Pulse Pulse Resp BP BP BP 05/16/17 08:46 75 05/16/17 08:31 71 05/16/17 07:00 98.3 F 68 16 129/59 05/15/17 22:41 97.7 F 77 16 121/69 05/15/17 20:47 76 05/15/17 20:29 80 05/15/17 17:44 98.0 F 76 16 140/71 05/15/17 16:17 98.2 F 83 16 117/71 05/15/17 15:55 75 16 05/15/17 15:47 98.6 F 90 18 129/69 05/15/17 15:37 97.9 F 87 16 108/69 05/15/17 15:24 97.8 F 86 16 108/69 05/15/17 14:21 97.8 F 92 18 130/79 05/15/17 13:51 98.1 F 86 16 115/65 05/15/17 13:49 98.1 F 86 16 115/65 05/15/17 13:44 98.1 F 75 17 121/59 05/15/17 13:41 98.1 F 81 18 121/59 05/15/17 12:04 82 05/15/17 11:54 80 Pulse Ox 05/16/17 08:46 05/16/17 08:31 100 05/16/17 07:00 100 05/15/17 22:41 100 05/15/17 20:47 05/15/17 20:29 05/15/17 17:44 05/15/17 16:17 05/15/17 15:55 05/15/17 15:47 05/15/17 15:37 05/15/17 15:24 05/15/17 14:21 05/15/17 13:51 05/15/17 13:49 05/15/17 13:44 100 05/15/17 13:41 05/15/17 12:04 05/15/17 11:54 Intake and Output 05/15/17 05/16/17 05/16/17 22:59 06:59 14:59 Intake Total 970 1390 Output Total 80 3130 Balance 890 -1740 Intake: IV 350 800 Sodium Chloride 0.9% 1, 350 800 000 ml @ 100 mls/hr IV . Q10H [facility] Rx#:[id number] Intake, IV Titration 50 Amount Piperacillin-Tazobactam 3 50 .375 gm In Dextrose/Water 1 50ml.bag @ 12.5 mls/hr IVPB Q8HR [facility] Rx#: [id number] Oral 540 Blood Product 620 Rc Pheresis 2 As3 Unit 310 [id number] Rc Pheresis As-3 Unit 310 [id number] Output: Chest Tube Drainage 80 130 Chest Tube Right Lateral 80 130 Chest Urine 3000 Uretheral ([place]) 3000 Other: Voiding Method Indwelling Catheter Indwelling Catheter # Voids 3 # Bowel Movements 1 1 Weight 52 kg 55 kg Results - Lab Results Most recent lab results Calcium 8.0 mg/dL (8.4-10.2) L 05/16/17 07:37 Phosphorus 4.6 mg/dL (2.5-4.5) H 05/02/17 02:30 Magnesium 1.7 mg/dL (1.6-2.3) 05/03/17 07:15 05/16/17 07:43 05/16/17 07:37 Assessment and Plan Plan: Assessment: #1. Hypocalcemia. Calcium level was 6.4 and May 15 with an albumin level of 2.1. Her corrected calcium is near 8.0. She did receive IV calcium gluconate 2 g on May 15 and calcium level today is 8.0 and albumin level is 3.2. She is also maintained on Lupron diuretics which can lead to urinary calcium wasting. Additionally she received blood transfusion yesterday which can lead to hypocalcemia due to chelation from citrate. #2. Right-sided pleural effusion status post thoracentesis and chest tube placement. #3. Acute anemia status post packed red blood cell transfusion. Hemoglobin 8.6 today. #4. Pneumonia. Sputum culture positive for Corynebacterium. Plan: Check ionized calcium level. Check 25 and 1, 25 vitamin D levels. Check PTH and phosphorus level. Check magnesium level. Repeat electrolytes in the morning. Thank you for the consultation. I will continue to follow the patient with you during her hospital stay.
--- NOTE | 2017-05-16 11:22 | PN ---
This is a 57 -year-old white female who was admitted with severe shortness of breath and general weakness and she was found to have acute exacerbation of chronic obstructive pulmonary disease and acute on chronic congestive heart failure and anemia and also she is noted to have diabetes mellitus. The patient was admitted to the hospital for further evaluation and treatment. The patient was seen by [facility] in consultation and also by Dr. Hinds in consultation. The patients cardiac problem became stable but she continued to be extremely short of breath. She was found to have right lower lobe pneumonia and right pleural effusion and right pneumothorax and the patient had a thoracentesis initially by Dr. Hinds and he removed about 1.6 L of fluids. The patient felt slightly better. She developed pneumothorax and the patient had a chest tube inserted and currently she is feeling slight better but still chest tube is draining. The patient was planned to be transferred to a rehab unit for extended care but Dr. Hinds felt that she is not ready to be transferred. The patient is currently receiving ( ) Solu-Medrol and also the chest tube is still functioning. Vital signs are stable. We will continue current medications. Dr. Hinds will follow the patient and also she is being followed by [facility] and infectious disease. Prognosis guarded. MTDD
[2017-05-16 11:36] LABS: Glucose,Whole Blood 248 mg/dL (75-99)
--- NOTE | 2017-05-16 11:41 | PN ---
DATE OF SERVICE: 05/15/2017 This is a 57-year-old white female who was in the hospital for acute exacerbation of COPD, right lobar pneumonia, pleural effusion, pneumothorax and also acute on chronic congestive heart failure and also she had diabetes mellitus and chronic anemia. Patient was seen by [facility] in consultation. She was also being followed by Dr. Segun Hinds in consultation and Dr. Castellon saw the patient for treating in regards to her pneumonia. Patient had a thoracentesis and then patient had a chest tube inserted for pneumothorax and she is currently started felling better but today her hemoglobin dropped to 5.8. Patient is extremely weak and otherwise, her vital signs are stable. Will transfuse her with 2 units of packed cells and also she has hypokalemia and renal insufficiency and she the potassium will be replaced according to the potassium protocol and will also consult Nephrology with regards to his electrolyte imbalance and renal failure. Overall prognosis guarded. She also has chronic back pain syndrome with severe low back pain and will increase the pain medications to keep her more comfortable. Prognosis guarded. MTDD
[2017-05-16] MEDS: ALPRAZolam 0.25 MG TAB PO PRN (14:42)
--- NOTE | 2017-05-16 15:11 | P.PN ---
Subjective 05/02/17 This is a 57-year-old female patient being seen, examined and evaluated. Patient is well-known to our services. This Patient comes in with complaints of shortness of breath that had been increasing over the last few days. The patient does have a significant medical history for CHF, COPD that is severe, chronic persistent asthma but severe, atrial fibrillation, renal insufficiency and liver disease. This patient has a known history for reoccurring pneumonia as well. Patient states she uses 4-5 L of supplemental oxygen at home at all times. Upon examination the patient's resting up in bed on 5 L of supplemental oxygen, she states she has shortness of breath with any minimal exertion as well as extensive conversation. Chest x-ray has been reviewed and shows an increasing right pleural effusion which is associated with atelectasis, possible pulmonary artery hypertension, and congestive heart failure. 05/03/17 upon examination today the patient's resting up in bed and continues to be on 5 L of supplemental oxygen. Patient continues to have shortness of breath with any minimal exertion and extensive conversation. Patient did undergo an ultrasound of the chest yesterday which revealed a right pleural effusion fluid pocket of 10.4 cm this has increased significantly since her last ultrasound of the chest which was done 02/08/2017 which showed a right pleural effusion pocket of 4.2 at that time. During that admission in January the effusion was too small to undergo a thoracentesis. Of note ,since its progression, the patient is a candidate to have the thoracentesis performed in regards to size. However the patient was on Coumadin for chronic A. fib and her INR yesterday was 2.9. Yesterday we discontinued the Coumadin and put the patient on Lovenox in preparation for thoracentesis. A repeat INR was performed today and is currently 3.6. We would like the patient's INR to be closer to 1.4 before we perform the thoracentesis. Repeat labs will be drawn tomorrow. 05/04/17 examination today the patient's resting up in bed and continues on 5 L of supplemental oxygen. Patient states she is a little less short of breath today than previously. However she still continues to have shortness of breath with exertion. Patient's INR today was 3.7, which is still too high to undergo a thoracentesis. Labs have been reviewed. We truly the increase in INR due to the patient being on Levaquin as a side effect. 05/05/17- upon examination today the patient is resting up in bed and continues on the 5 L of supplemental oxygen. The patient's INR today is 1.3 therefore we can go forth with the thoracentesis. The procedure as well as the risk and benefits have been discussed at length with the patient QUESTIONS have been answered. After the thoracentesis is completed the fluid will be sent for lab workup. The patient will be able to start back on her Coumadin tonight. The patient should continue with Lovenox until her INR is more than 1.8. Patient continues to have shortness of breath with exertion. 05/06/17- patient did undergo a thoracentesis yesterday. 1.6 L of clear yellow pleural fluid was removed. It was discovered on the post x-ray at the patient did have a 20% pneumothorax. The patient was asymptomatic at that time. The patient was to be watched closely overnight and have a repeat chest x-ray that evening which was stable and another one this morning which dates show a possible slight increase in the pneumothorax. CT of the chest without contrast was obtained and results are not readily available. We will consult cardiothoracic to follow the patient and interventional radiology to place a pigtail catheter. Upon examination the patient is resting up in bed and despite the pneumothorax the patient states her breathing is better today after having the fluid removed. Patient is still requiring 4-5 L of supplemental oxygen however she said her shortness of breath has decreased. Patient is afebrile no further complaints. 05/07/17 and 05/08/17, please refer to DR. JULIO Gao note, as he covered these days. 05/09/17-upon examination today the patient's resting up in bed on 5 L of supplemental oxygen. Chest x-rays have been reviewed and the patient still has a pneumothorax that has not improved, pneumothorax remains about 30%. Therefore the patient will ultimately require a chest tube placement by interventional radiology. Patient continues to feel short of breath and tight. Today she states she feels slightly worse than yesterday in regards to her breathing. We'll recheck her CBC CMP and PT/INR. Patient has had her Coumadin on hold since pneumothorax and she has been receiving Lovenox. 05/10/17- on examination today the patient has just came back from interventional radiology after pigtail chest tube insertion. There is approximately 300 ML's of serosanguineous drainage noted upon arrival and the pleural VAC has not been attached to suction yet at this time. Patient will be hooked up to wall suction. Patient states that this initially received the chest tube she had immediate relief in her shortness of breath which decreased significantly. Patient states she is breathing much better post procedure. Patient is noted to be sitting up in bed and continues on 5 L of supplemental oxygen. Labs and radiology reports have been reviewed. 05/11/17- upon examination today the patient is resting up in bed and states she feels better today. Patient continues on 5 L of supplemental oxygen. Patient still has her chest tube in and has had approximately 700 ML's of serosanguineous output total since it was inserted. Her appetite has improved slightly as well. Patient states she is much more comfortable today. She continues on IV Solu-Medrol, updrafts and antibiotics. 05/12/17- today the patient is seen resting in bed on 4-5 L of oxygen. The patient states that she continues to have a productive cough with congestion. She is breathing easier with less effort. Appetite continues to improve. Her chest tube shows an output of approximately 875 ML's total output. Continues to be hooked up to suction. States her appetite continues to wax and wane. Chest x-ray from today has been reviewed patient's hydropneumothorax has been improved and remains about 15%. 05/13/17-today the patient seen resting up in bed on 4-5 L of supplemental oxygen via nasal cannula. She continues to have a productive cough with congestion however she states this is slightly improved today. She continues to breathe easier with less effort. Currently she is eating. Her chest tube shows approximately a total of 1100 ML's of serosanguineous drainage. Coumadin is still currently on hold and she is utilizing Lovenox. Chest x-ray is pending. No further complaints no overnight events. She is utilizing her incentive spirometer and pulls volumes of 1750. We will decrease her steroids today. 05/14/17, patient seen and evaluated examined today she is complaining of some shortness of breath and congestion however not producing much sputum her chest x -ray from today has been reviewed very small residual pneumothorax and small effusions seen she has put out another 350 mL in the last 48 hours the pleural VAC in control is adequate chest tube is connected with the 20 cm water of section is doing IS regularly on 4-5 L oxygen with stable oxygenation 05/15/17, patient seen and evaluated examined care plan discussed with the nurse at length critical care time spent 35 minutes chest x-ray from today reviewed the laboratory data reviewed as well care plan discussed with the primary service, patient is complaining of some weakness and tiredness has been congested as well and slightly more short of breath however her chest x-ray looks much improved she had put out more than 300 mL and pleural VAC December chest x-ray from today reveal almost resolution of pneumothorax some reexpansion pulmonary edema in the right lower lobe versus right lower lobe pneumonia cannot be excluded she does have cough but no sputum is coming out she remains on 4 L oxygen, she is being planned for replacement of calcium transfusion of 2 unit packed RBC replacement of potassium and placement of new peripheral IVs antibiotics in the form of IV Zosyn is being started 05/19/17- upon examination today the patient is seen resting up in bed on 5 L of supplemental oxygen. Chest x-ray has been reviewed and does show improvement in the pneumothorax with some reexpansion pulmonary edema in the right lower lobe versus right lower lobe pneumonia cannot be excluded. Patient's electrolytes known to be off therefore nephrology will be consult it. Patient is also being seen by infectious disease and cardiology. Patient's pleural low back continues to be patent and draining serosanguineous fluids. The pleural VAC chamber was changed today at 6 AM. The patient is noted that have 70 ML out between 6 AM and 9 AM. Patient's hemoglobin is stable today at 8.6. No further signs of bleeding. Patient is using her incentive spirometer and pulling volumes of approximately thousand ML. Objective - Vital Signs Vital signs: Vital Signs Temp 98.3 F 05/16/17 07:00 Pulse 77 05/16/17 12:55 Resp 16 05/16/17 08:00 BP 129/59 05/16/17 07:00 Pulse Ox 100 05/16/17 08:31 Intake & Output 05/15/17 05/16/17 05/16/17 18:59 06:59 18:59 Intake Total 1560 1740 1512 Output Total 1108 5640 1730 Balance -362 -7158 Weight 52 kg 55 kg 55 kg Intake: IV 500 1150 732 Sodium Chloride 0.9% 1, 500 1150 732 000 ml @ 100 mls/hr IV . Q10H MARY CARMEN Rx#:[id number] Intake, IV Titration 200 50 Amount Calcium Gluconate 1,000 100 mg In Sodium Chloride 0.9 % 100 ml @ 100 mls/hr IVPB Q4H MARY CARMEN Rx#: [id number] Piperacillin-Tazobactam 3 50 .375 gm In Dextrose/Water 1 50ml.bag @ 12.5 mls/hr IVPB Q8HR MARY CARMEN Rx#: [id number] Potassium Chloride 10 meq 100 Lidocaine 2% Inj 10 mg In Sodium Chloride 0.9% 100 ml @ 100 mls/hr IV Q1HR MARY CARMEN Rx#:[id number] Oral 240 540 780 Blood Product 620 Rc Pheresis 2 As3 Unit 310 [id number] Rc Pheresis As-3 Unit 310 [id number] Output: Chest Tube Drainage 500 130 130 Chest Tube Right Lateral 500 130 130 Chest Urine 1600 3000 3400 Uretheral ([place]) 3000 1700 Other: Voiding Method Indwelling Catheter Indwelling Catheter Indwelling Catheter # Voids 3 # Bowel Movements 1 1 - Exam GENERAL EXAM: Alert, cachectic, comfortable in no apparent distress. HEAD: Normocephalic. EYES: Normal reaction of pupils, equal size. NOSE: Clear with pink turbinates. THROAT: No erythema or exudates. NECK: No masses, no JVD. CHEST: No chest wall deformity. LUNGS: Poor air entry is present, scattered rhonchi as well as expiratory wheezes noted throughout. Decreased breath sounds on the right base, however slightly improved. Right-sided pigtail chest tube in place. CVS: S1 and S2 normal with no audible mumurs, regular rhythm. ABDOMEN: No hepatosplenomegaly, normal bowel sounds, no guarding or rigidity. EXTREMITIES: Trace edema noted, pedal pulses palpable. SKIN: No rashes, dressing in place to coccyx wound CENTRAL NERVOUS SYSTEM: No focal deficits, tone is normal in all 4 extremities. - Labs CBC & Chem 7: 05/16/17 07:43 05/16/17 07:37 Labs: Abnormal Lab Results - Last 24 Hours (Table) 05/15/17 05/15/17 05/15/17 Range/Units 11:01 17:14 19:02 WBC 22.9 H (3.8-10.6) k/uL Hgb 9.3 L D (11.4-16.0) gm/dL Hct 29.5 L (34.0-46.0) % MCV 73.2 L (80.0-100.0) fL MCH 23.1 L (25.0-35.0) pg MCHC (31.0-37.0) g/dL RDW 19.3 H (11.5-15.5) % Plt Count 133 L (150-450) k/uL Neutrophils # (1.3-7.7) k/uL Monocytes # (0-1.0) k/uL Sodium (137-145) mmol/L Chloride (98-107) mmol/L Carbon Dioxide (22-30) mmol/L BUN (7-17) mg/dL Glucose (74-99) mg/dL POC Glucose (mg/dL) 209 H (75-99) mg/dL Calcium (8.4-10.2) mg/dL Ionized Calcium Sherine (4.5-5.3) mg/dL Total Protein (6.3-8.2) g/dL Albumin (3.5-5.0) g/dL Crossmatch See Detail 05/15/17 05/15/17 05/16/17 Range/Units 19:02 20:32 07:37 WBC (3.8-10.6) k/uL Hgb (11.4-16.0) gm/dL Hct (34.0-46.0) % MCV (80.0-100.0) fL MCH (25.0-35.0) pg MCHC (31.0-37.0) g/dL RDW (11.5-15.5) % Plt Count (150-450) k/uL Neutrophils # (1.3-7.7) k/uL Monocytes # (0-1.0) k/uL Sodium 135 L (137-145) mmol/L Chloride 96 L (98-107) mmol/L Carbon Dioxide 31 H 31 H (22-30) mmol/L BUN 45 H 43 H (7-17) mg/dL Glucose 165 H 102 H (74-99) mg/dL POC Glucose (mg/dL) 162 H (75-99) mg/dL Calcium 8.0 L (8.4-10.2) mg/dL Ionized Calcium Sherine (4.5-5.3) mg/dL Total Protein 5.3 L (6.3-8.2) g/dL Albumin 3.2 L (3.5-5.0) g/dL Crossmatch 05/16/17 05/16/17 05/16/17 Range/Units 07:43 10:31 11:34 WBC 17.1 H (3.8-10.6) k/uL Hgb 8.6 L (11.4-16.0) gm/dL Hct 28.2 L (34.0-46.0) % MCV 72.3 L (80.0-100.0) fL MCH 22.0 L (25.0-35.0) pg MCHC 30.4 L (31.0-37.0) g/dL RDW 19.7 H (11.5-15.5) % Plt Count 137 L (150-450) k/uL Neutrophils # 12.7 H (1.3-7.7) k/uL Monocytes # 1.1 H (0-1.0) k/uL Sodium (137-145) mmol/L Chloride (98-107) mmol/L Carbon Dioxide (22-30) mmol/L BUN (7-17) mg/dL Glucose (74-99) mg/dL POC Glucose (mg/dL) 248 H (75-99) mg/dL Calcium (8.4-10.2) mg/dL Ionized Calcium Sherine 4.2 L (4.5-5.3) mg/dL Total Protein (6.3-8.2) g/dL Albumin (3.5-5.0) g/dL Crossmatch Microbiology - Last 24 Hours (Table) 05/05/17 16:15 Fungal Culture - Preliminary Pleural Fluid Assessment and Plan Plan: Assessment Right-sided pneumothorax Right-sided pleural effusion with right sided pneumonia suspect mixed/gram- negative in nature Acute exacerbation of chronic obstructive pulmonary disease Acute on chronic hypoxic respiratory failure Congestive heart failure Probable pulmonary hypertension Atrial fibrillation Chronic anemia Severe protein calorie malnutrition Hypocalcemia Plan Medications have been reviewed and will be continued as ordered. Decrease her solumedrol today. Continue with IV antibiotics. Chest tube to wall suction, continue to monitor output. We will continue to monitor the pneumothorax. Repeat labs tomorrow. Due to the pneumothorax we will continue to hold the patient's Coumadin at this time and continue on the Lovenox. Pleural fluid has been sent for lab workup. Continue with Solu-Medrol and budesonide as well as Mucinex. Repeat labs in the morning. Cardiology on consult. Infectious disease on consult. Nephrology on consult. Continue with pulmonary hygiene, coughing and deep breathing exercises, and supportive care. Supplemental oxygen to maintain oxygen saturations of 92% or better. Continue nebulizer treatments. GI and DVT prophylaxis. Ensure 3 times a day with meals. We will continue to monitor labs/results and adjust treatment as necessary. Further recommendations pending. I performed an examination of the patient and discussed their management with the nurse practitioner. I have reviewed the nurse practitioner's note and agree with the documented findings and plan of care.
[2017-05-16] MEDS: HYDROmorphone 1 MG/ML 1 ML SYRINGE IVP SCH (15:55)
[2017-05-16 16:32] LABS: Glucose,Whole Blood 168 mg/dL (75-99)
[2017-05-16 20:20] LABS: Glucose,Whole Blood 206 mg/dL (75-99)
--- NOTE | 2017-05-16 21:13 | P.PN ---
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 Became profoundly weak. Was also having increasing amounts of pain to the right lower side of her chest. Because the she presented to the emergency center. Telemetry was some steroids and respiratory treatments and this has helped her as well as pain medications. She has less short of breath at the moment and she wasn't admission. But still is quite miserable. She sitting upright sitting forward relates this gives her some relief of the discomfort she has in her right lower chest toward the back. She is still short of breath compared to her baseline. She has no hemoptysis but does have a mild cough at times. She is not having significant sputum Production. He is feeling slightly better since the thoracentesis. Had radiology place the pleural space evacuation which has been helpful. May come out tomorrow. she is discontent with pain medication, is instructed on importance of minimizing narcotic use with her pulmonary disease. Objective - Vital Signs Vital signs: Vital Signs Temp 98.2 F 05/16/17 15:06 Pulse 80 05/16/17 20:53 Resp 16 05/16/17 15:22 BP 124/62 05/16/17 15:06 Pulse Ox 100 05/16/17 15:06 Intake & Output 05/16/17 05/16/17 05/17/17 06:59 18:59 06:59 Intake Total 1740 1512 Output Total 3130 5230 Balance -1390 -3718 Weight 55 kg 55 kg Intake: IV 1150 732 Sodium Chloride 0.9% 1, 1150 732 000 ml @ 100 mls/hr IV . Q10H MARY CARMEN Rx#:[id number] Intake, IV Titration 50 Amount Piperacillin-Tazobactam 3 50 .375 gm In Dextrose/Water 1 50ml.bag @ 12.5 mls/hr IVPB Q8HR MARY CARMEN Rx#: [id number] Oral 540 780 Output: Chest Tube Drainage 130 130 Chest Tube Right Lateral 130 130 Chest Urine 3000 5100 Uretheral ([place]) 3000 1700 Other: Voiding Method Indwelling Catheter Indwelling Catheter # Bowel Movements 1 - Exam 57-year-old woman who looks much older than her stated age. She is chronically ill. HEENT: Anicteric conjunctiva are pink and moist nasal mucosa grossly intact without significant lesions, there is no thrush. Poor dentition Neck: The neck is supple without significant lymphadenopathy or thyromegaly. Lungs: Symmetrical air entry with wheezes scattered throughout the lung iqbal. Evidence of decreased breath sounds breath sounds to the right base. The extensive dullness and egophony to the right base has resolved with the chest tube Heart: irregular no S3 loud S4 There is no significant murmur click or rub, PMI was nondisplaced. Abdomen: Positive bowel sounds soft and nontender without palpable masses or organomegaly. There was no guarding or rebound. Extremities: The extremities have just trace edema. She has no tenderness over the joints. Skin the patient has changes of diabetes her lower extremities however she has a difficulty with chronically picking at her skin and has innumerable lesions that healed over arms and legs at this time. None of them are open are grossly draining at this time is evidence of some erythema to the coccyx. With this the Aquacel silver dressing has been applied. It has the foam border. Neuro: She is awake alert oriented to person place and time and does not exhibit any acute gross focal sensory motor deficits - Labs CBC & Chem 7: 05/16/17 07:43 05/16/17 07:37 Labs: Abnormal Lab Results - Last 24 Hours (Table) 05/16/17 05/16/17 05/16/17 Range/Units 07:37 07:43 10:31 WBC 17.1 H (3.8-10.6) k/uL Hgb 8.6 L (11.4-16.0) gm/dL Hct 28.2 L (34.0-46.0) % MCV 72.3 L (80.0-100.0) fL MCH 22.0 L (25.0-35.0) pg MCHC 30.4 L (31.0-37.0) g/dL RDW 19.7 H (11.5-15.5) % Plt Count 137 L (150-450) k/uL Neutrophils # 12.7 H (1.3-7.7) k/uL Monocytes # 1.1 H (0-1.0) k/uL Carbon Dioxide 31 H (22-30) mmol/L BUN 43 H (7-17) mg/dL Glucose 102 H (74-99) mg/dL POC Glucose (mg/dL) (75-99) mg/dL Calcium 8.0 L (8.4-10.2) mg/dL Ionized Calcium Sherine 4.2 L (4.5-5.3) mg/dL Total Protein 5.3 L (6.3-8.2) g/dL Albumin 3.2 L (3.5-5.0) g/dL Vitamin D 25-Hydroxy (30.0-100.0) ng/mL PTH Intact (14.0-72.0) pg/mL 05/16/17 05/16/17 05/16/17 Range/Units 10:31 11:34 16:30 WBC (3.8-10.6) k/uL Hgb (11.4-16.0) gm/dL Hct (34.0-46.0) % MCV (80.0-100.0) fL MCH (25.0-35.0) pg MCHC (31.0-37.0) g/dL RDW (11.5-15.5) % Plt Count (150-450) k/uL Neutrophils # (1.3-7.7) k/uL Monocytes # (0-1.0) k/uL Carbon Dioxide (22-30) mmol/L BUN (7-17) mg/dL Glucose (74-99) mg/dL POC Glucose (mg/dL) 248 H 168 H (75-99) mg/dL Calcium (8.4-10.2) mg/dL Ionized Calcium Sherine (4.5-5.3) mg/dL Total Protein (6.3-8.2) g/dL Albumin (3.5-5.0) g/dL Vitamin D 25-Hydroxy 11.5 L (30.0-100.0) ng/mL PTH Intact 143.8 H (14.0-72.0) pg/mL 05/16/17 Range/Units 20:03 WBC (3.8-10.6) k/uL Hgb (11.4-16.0) gm/dL Hct (34.0-46.0) % MCV (80.0-100.0) fL MCH (25.0-35.0) pg MCHC (31.0-37.0) g/dL RDW (11.5-15.5) % Plt Count (150-450) k/uL Neutrophils # (1.3-7.7) k/uL Monocytes # (0-1.0) k/uL Carbon Dioxide (22-30) mmol/L BUN (7-17) mg/dL Glucose (74-99) mg/dL POC Glucose (mg/dL) 206 H (75-99) mg/dL Calcium (8.4-10.2) mg/dL Ionized Calcium Sherine (4.5-5.3) mg/dL Total Protein (6.3-8.2) g/dL Albumin (3.5-5.0) g/dL Vitamin D 25-Hydroxy (30.0-100.0) ng/mL PTH Intact (14.0-72.0) pg/mL Microbiology - Last 24 Hours (Table) 05/05/17 16:15 Fungal Culture - Preliminary Pleural Fluid Laboratory Results WBC 17.1 k/uL (3.8-10.6) H 05/16/17 07:43 RBC 3.90 m/uL (3.80-5.40) 05/16/17 07:43 Hgb 8.6 gm/dL (11.4-16.0) L 05/16/17 07:43 Hct 28.2 % (34.0-46.0) L 05/16/17 07:43 MCV 72.3 fL (80.0-100.0) L 05/16/17 07:43 MCH 22.0 pg (25.0-35.0) L 05/16/17 07:43 MCHC 30.4 g/dL (31.0-37.0) L 05/16/17 07:43 RDW 19.7 % (11.5-15.5) H 05/16/17 07:43 Plt Count 137 k/uL (150-450) L 05/16/17 07:43 Neutrophils % 74 % 05/16/17 07:43 Lymphocytes % 17 % 05/16/17 07:43 Monocytes % 6 % 05/16/17 07:43 Eosinophils % 1 % 05/16/17 07:43 Basophils % 0 % 05/16/17 07:43 Neutrophils # 12.7 k/uL (1.3-7.7) H 05/16/17 07:43 Lymphocytes # 2.8 k/uL (1.0-4.8) 05/16/17 07:43 Monocytes # 1.1 k/uL (0-1.0) H 05/16/17 07:43 Eosinophils # 0.1 k/uL (0-0.7) 05/16/17 07:43 Basophils # 0.1 k/uL (0-0.2) 05/16/17 07:43 Hypochromasia Marked 05/16/17 07:43 Poikilocytosis Moderate 05/16/17 07:43 Anisocytosis Slight 05/16/17 07:43 Microcytosis Marked 05/16/17 07:43 PT 11.3 sec (9.0-12.0) 05/13/17 07:48 INR 1.1 (<1.2) 05/13/17 07:48 APTT 39.4 sec (22.0-30.0) H 05/02/17 02:30 D-Dimer 0.60 mg/L FEU (<0.60) H 05/02/17 02:30 Sodium 139 mmol/L (137-145) 05/16/17 07:37 Potassium 3.8 mmol/L (3.5-5.1) 05/16/17 07:37 Chloride 99 mmol/L (98-107) 05/16/17 07:37 Carbon Dioxide 31 mmol/L (22-30) H 05/16/17 07:37 Anion Gap 9 mmol/L 05/16/17 07:37 BUN 43 mg/dL (7-17) H 05/16/17 07:37 Creatinine 0.66 mg/dL (0.52-1.04) 05/16/17 07:37 Est GFR (MDRD) Af Amer >60 (>60 ml/min/1.73 sqM) 05/16/17 07:37 Est GFR (MDRD) Non-Af >60 (>60 ml/min/1.73 sqM) 05/16/17 07:37 Glucose 102 mg/dL (74-99) H 05/16/17 07:37 POC Glucose (mg/dL) 206 mg/dL (75-99) H 05/16/17 20:03 POC Glu Temporary Help Agency Referral Clerk ID Dominique Alejandro 05/16/17 20:[address] Glu mg/dL 108 mg/dL 05/12/17 07:20 Hemoglobin A1c 5.4 % (4.2-6.1) 05/12/17 07:20 Calcium 8.0 mg/dL (8.4-10.2) L 05/16/17 07:37 Ionized Calcium Sherine 4.2 mg/dL (4.5-5.3) L 05/16/17 10:31 Phosphorus 4.6 mg/dL (2.5-4.5) H 05/02/17 02:30 Magnesium 1.7 mg/dL (1.6-2.3) 05/03/17 07:15 Total Bilirubin 0.7 mg/dL (0.2-1.3) 05/16/17 07:37 AST 28 U/L (14-36) 05/16/17 07:37 ALT 46 U/L (9-52) 05/16/17 07:37 Alkaline Phosphatase 92 U/L (38-126) 05/16/17 07:37 Total Creatine Kinase 90 U/L (30-135) 05/02/17 02:30 CK-MB (CK-2) 4.0 ng/mL (0.0-2.4) H* 05/02/17 02:30 CK-MB (CK-2) Rel Index 4.4 05/02/17 02:30 Troponin I 0.020 ng/mL (0.000-0.034) 05/02/17 02:30 NT-Pro-B Natriuret Pep 8080 pg/mL 05/02/17 02:30 Total Protein 5.3 g/dL (6.3-8.2) L 05/16/17 07:37 Albumin 3.2 g/dL (3.5-5.0) L 05/16/17 07:37 Vitamin D 25-Hydroxy 11.5 ng/mL (30.0-100.0) L 05/16/17 10:31 PTH Intact 143.8 pg/mL (14.0-72.0) H 05/16/17 10:31 Urine Color Yellow 05/02/17 23:05 Urine Appearance Clear (Clear) 05/02/17 23:05 Urine pH 6.5 (5.0-8.0) 05/02/17 23:05 Ur Specific [place] 1.012 (1.001-1.035) 05/02/17 23:05 Urine Protein Trace (Negative) H 05/02/17 23:05 Urine Glucose (UA) Negative (Negative) 05/02/17 23:05 Urine Ketones Negative (Negative) 05/02/17 23:05 Urine Blood Trace (Negative) H 05/02/17 23:05 Urine Nitrite Negative (Negative) 05/02/17 23:05 Urine Bilirubin Negative (Negative) 05/02/17 23:05 Urine Urobilinogen <2.0 mg/dL (<2.0) 05/02/17 23:05 Ur Leukocyte Esterase Negative (Negative) 05/02/17 23:05 Urine RBC 7 /hpf (0-5) H 05/02/17 23:05 Urine WBC 1 /hpf (0-5) 05/02/17 23:05 Ur Squamous Epith Cells <1 /hpf (0-4) 05/02/17 23:05 Hyaline Casts 101 /lpf (0-2) H 05/02/17 23:05 Urine Mucus Rare /hpf (None) H 05/02/17 23:05 Fluid Source Pleural 05/05/17 16:15 Fluid Color Yellow 05/05/17 16:15 Fluid Appearance Clear 05/05/17 16:15 Fluid RBC 152 /uL 05/05/17 16:15 Fluid Nucleated Cells 33 /uL 05/05/17 16:15 Fluid Polynuclear WBCs 13 % 05/05/17 16:15 Fluid Mononuclear WBCs 87 % 05/05/17 16:15 Body Fluid Glucose Source Pleural Fluid 05/05/17 16:15 Fluid Glucose 159 mg/dL 05/05/17 16:15 Body Fluid Protein Source Pleural Fluid 05/05/17 16:15 Fluid Total Protein 1289.0 mg/dL 05/05/17 16:15 Body Fluid LDH Source Pleural Fluid 05/05/17 16:15 Fluid LDH 105 U/L 05/05/17 16:15 Urine Legionella Ag Not detected (Not detected) 05/02/17 23:05 Mycoplasma pneumon IgG 2.82 INDEX (<=0.90) H 05/03/17 07:15 Mycoplasma pneumon IgM 0.46 INDEX (<=0.90) 05/03/17 07:15 Blood Type O Positive 05/15/17 11:01 Blood Type Recheck No 05/15/17 11:01 Antibody Screen NEGATIVE 05/15/17 11:01 Crossmatch See Detail 05/15/17 11:01 Spec Expiration Date 05/18/2017 - 2301 05/15/17 11:01 Microbiology 05/05/17 16:15 Pleural Fluid Fungal Culture - Preliminary 05/05/17 16:15 Pleural Fluid Gram Stain - Final 05/05/17 16:15 Pleural Fluid Body Fluid Culture - Final 05/05/17 18:00 Sputum Gram Stain - Final 05/05/17 18:00 Sputum Sputum Culture - Final Corynebacterium striatum 05/02/17 02:30 Blood Blood Culture - Final No Growth after 144 hours 05/05/17 16:15 Pleural Fluid Acid Fast Bacilli Smear - Final 05/05/17 16:15 Pleural Fluid Acid Fast Bacilli Culture - Preliminary 05/02/17 23:05 Urine,Voided Urine Culture - Final Assessment and Plan (1) COPD (chronic obstructive pulmonary disease) Status: Acute (2) Afib Status: Acute (3) Pleural effusion Narrative/Plan: 57-year-old female who has advanced COPD that is oxygen and inhaled steroid dependent, but continues to smoke. Presents to Hospital feeling increasing shortness of breath. Was associated with increasing amounts of discomfort to her right lower chest especially posterior. Chest ray and ultrasound reveal evidence of an increasing effusion to that area. Potentially will have a thoracentesis. Prior cultures have been negative. No history of MRSA. Given her complex history currently be treating with piperacillin tazobactam and Levaquin until we have further data. Blood cultures are negative so far. Sputum cultures negative so far. Legionella has come back as negative Mycoplasma is positive for old disease nothing acute Thoracentesis has occurred. Fluid is negative for infection but is an exudate is noted by the chemistry. She does feel symptomatically better since this. Has been seen by cardiothoracic surgery with no plans for surgery . Cytology is negative for malignancy from the thoracentesis. Radiology consult has been requested for the pigtail Pleur-evac catheter placement allowed improvement of breathing, may be removed tomorrow. . With current steroid therapy as well as the breathing treatments she is symptomatically improving. The patient does have a stage II area on the coccyx for which the Aquacel silver foam dressing is then applied. Advised to try to not always being is sitting up position to offload some pressure to her coccyx. Status: Acute Code(s): J90 - PLEURAL EFFUSION, NOT ELSEWHERE CLASSIFIED
[2017-05-16] MEDS: ATORVASTATIN 40 MG TAB PO SCH (21:17)
[2017-05-16] MEDS: traZODone HCL 50 MG TAB PO SCH (21:17)
[2017-05-16] MEDS: MONTELUKAST 10 MG TAB PO SCH (21:17)
--- NOTE | 2017-05-16 23:45 | PN ---
DATE OF SERVICE: 05/16/2017 This is a 57-year-old white female who has multiple chronic illnesses. She is known to have chronic obstructive pulmonary disease and chronic atrial fibrillation and chronic congestive heart failure and diabetes mellitus. She has low back pain. Patient was admitted to the hospital this time with right lower lobe pneumonia, right pleural effusion, and right pneumothorax. The patient was seen by Dr. Segun Hinds in consultation. Currently she is receiving IV antibiotics, updraft treatments and IV Solu-Medrol. The patient had a chest tube inserted for the pneumothorax and the tube is still in place. Overall the patient is getting more comfortable. She had severe anemia and her hemoglobin was 5.6. Patient was transfused 2 units of packed cells. The patient is feeling better today and her hemoglobin today is 8.6. Her pain is being controlled with Dilaudid and [place]. Dr. Hinds is planning to take the chest tube out, possibly tomorrow. Otherwise, patient's vital signs are stable. Still she is extremely weak. She has been placed back on ferrous sulfate. Overall prognosis is guarded. The diagnoses, prognosis and therapeutic plans were discussed in detail with the patient again. ISACC
[2017-05-17] MEDS: ALPRAZolam 0.5 MG TAB PO PRN ×2 (00:14→23:07)
[2017-05-17] MEDS: HYDROmorphone 1 MG/ML 1 ML SYRINGE IVP SCH (00:15)
[2017-05-17] MEDS: PIPERACILLIN-TAZOBACTAM 3.375 GM in DEXTROSE/WATER 1 50ML.BAG IVPB SCH ×4 (00:20→23:31)
[2017-05-17] MEDS: HYDROcodone/APAP 10-325MG 1 EACH TAB PO PRN ×4 (02:42→23:07)
[2017-05-17] MEDS: HYDROmorphone 1 MG/ML 1 ML SYRINGE IVP PRN ×3 (03:32→20:29)
[2017-05-17] MEDS: SODIUM CHLORIDE 0.9% 1,000 ML IV SCH ×3 (05:44→15:37)
[2017-05-17] MEDS: IPRATROPIUM-ALBUTEROL 3 ML NEB INHALATION SCH ×4 (07:19→19:42)
[2017-05-17] MEDS: BUDESONIDE 0.5 MG/2 ML NEBU INHALATION SCH ×2 (07:19→19:42)
[2017-05-17 07:20] LABS: Glucose,Whole Blood 110 mg/dL (75-99)
[2017-05-17] MEDS: INSULIN LISPRO (humaLOG) 300 UNIT/3 ML VIAL SQ SCH ×4 (08:40→21:09)
[2017-05-17] MEDS: FUROSEMIDE 40 MG TAB PO SCH ×2 (08:42→20:29)
[2017-05-17] MEDS: ENOXAPARIN 40 MG/0.4 ML SYRINGE SQ SCH ×2 (08:42→20:29)
[2017-05-17] MEDS: DOCUSATE 100 MG CAP PO SCH (08:42)
[2017-05-17] MEDS: FERROUS SULFATE 325 MG TAB PO SCH (08:42)
[2017-05-17] MEDS: methylPREDNISolone SOD SUCCI 40 MG/ML 1 ML VIAL IV SCH (08:43)
[2017-05-17] MEDS: DIGOXIN 125 MCG TAB PO SCH (08:43)
[2017-05-17] MEDS: guaiFENesin 600 MG TABLET.ER PO SCH ×2 (08:43→20:30)
[2017-05-17] MEDS: POTASSIUM CHLORIDE ER 10 MEQ TAB.ER.PRT PO SCH (08:43)
[2017-05-17 08:48] LABS: Anisocytosis Moderate; Basophils # (A) 0.1 k/uL (0-0.2); Basophils % (A) 0 %; Eosinophils # (A) 0.3 k/uL (0-0.7); Eosinophils % (A) 1 %; HCT 28.4 % (34.0-46.0); HDW 3.99; HGB 8.6 gm/dL (11.4-16.0); Hypochromasia Marked; Luc # (Auto) 0.34; Luc % (Auto) 2; Lymphocytes # (A) 3.4 k/uL (1.0-4.8); Lymphocytes % (A) 16 %; MCH 22.2 pg (25.0-35.0); MCHC 30.4 g/dL (31.0-37.0); MCV 73.1 fL (80.0-100.0); Mean Platelet Volume 7.3; Microcytosis Marked; Monocytes # (A) 1.1 k/uL (0-1.0); Monocytes % (A) 5 %; Neutrophils # (A) 15.7 k/uL (1.3-7.7); Neutrophils % (A) 75 %; Poikilocytosis Slight; RBC 3.89 m/uL (3.80-5.40); RDW 20.7 % (11.5-15.5); WBC 20.8 k/uL (3.8-10.6); WBC (Perox) 20.87
[2017-05-17 08:53] LABS: ALT 43 U/L (9-52); AST 29 U/L (14-36); Alkaline Phosphatase 91 U/L (38-126); Anion Gap 7 mmol/L; Blood Urea Nitrogen 43 mg/dL (7-17); Calcium 8.4 mg/dL (8.4-10.2); Carbon Dioxide 34 mmol/L (22-30); Chloride 96 mmol/L (98-107); Glucose 99 mg/dL (74-99); Non-African American GFR(MDRD) >60 (>60 ml/min/1.73 sqM); Phosphorous 2.9 mg/dL (2.5-4.5); Potassium 4.2 mmol/L (3.5-5.1); Sodium 137 mmol/L (137-145); Total Bilirubin 0.7 mg/dL (0.2-1.3); Total Protein 5.4 g/dL (6.3-8.2)
--- NOTE | 2017-05-17 10:18 | P.PN ---
Subjective Patient is seen in follow-up for hypocalcemia. Her calcium level did drop down to 6.4, however the corrected calcium was near 8. She did receive IV calcium yesterday and it is up-to-date 0.4 this morning. She is currently sitting up in bed. Denies chest pain or shortness of breath. Admits to good urine output. No vomiting or diarrhea. Vital signs are stable. General: The patient appeared well nourished and normally developed. HEENT: Head exam is unremarkable. Neck is without jugular venous distension. LUNGS: Lungs are clear to auscultation and percussion. Breath sounds decreased. HEART: Rate and Rhythm are regular. First and second heart sounds normal. No murmurs, rubs or gallops. ABDOMEN: Abdominal exam reveals normal bowel sounds. Non-tender and non- distended. No evidence of peritonitis. EXTREMITITES: No clubbing, cyanosis, or edema. Objective - Vital Signs Vital signs: Vital Signs Temp 98.4 F 05/17/17 08:19 Pulse 74 05/17/17 08:19 Resp 18 05/17/17 08:19 BP 113/68 05/17/17 08:19 Pulse Ox 100 05/17/17 08:19 Intake & Output 05/16/17 05/17/17 05/17/17 18:59 06:59 18:59 Intake Total 1512 830 Output Total 5230 4140 Balance -3718 -3310 Weight 55 kg 51 kg Intake: IV 732 Sodium Chloride 0.9% 1, 732 000 ml @ 100 mls/hr IV . Q10H MARY CARMEN Rx#:[id number] Oral 780 830 Output: Chest Tube Drainage 130 40 Chest Tube Right Lateral 130 40 Chest Urine 5100 4100 Uretheral ([place]) 1700 2000 Other: Voiding Method Indwelling Catheter Indwelling Catheter Indwelling Catheter - Labs CBC & Chem 7: 05/17/17 08:08 05/17/17 08:08 Labs: Abnormal Lab Results - Last 24 Hours (Table) 05/16/17 05/16/17 05/16/17 Range/Units 10:31 10:31 11:34 WBC (3.8-10.6) k/uL Hgb (11.4-16.0) gm/dL Hct (34.0-46.0) % MCV (80.0-100.0) fL MCH (25.0-35.0) pg MCHC (31.0-37.0) g/dL RDW (11.5-15.5) % Plt Count (150-450) k/uL Neutrophils # (1.3-7.7) k/uL Monocytes # (0-1.0) k/uL Chloride (98-107) mmol/L Carbon Dioxide (22-30) mmol/L BUN (7-17) mg/dL POC Glucose (mg/dL) 248 H (75-99) mg/dL Ionized Calcium Sherine 4.2 L (4.5-5.3) mg/dL Total Protein (6.3-8.2) g/dL Albumin (3.5-5.0) g/dL Vitamin D 25-Hydroxy 11.5 L (30.0-100.0) ng/mL PTH Intact 143.8 H (14.0-72.0) pg/mL 05/16/17 05/16/17 05/17/17 Range/Units 16:30 20:03 07:06 WBC (3.8-10.6) k/uL Hgb (11.4-16.0) gm/dL Hct (34.0-46.0) % MCV (80.0-100.0) fL MCH (25.0-35.0) pg MCHC (31.0-37.0) g/dL RDW (11.5-15.5) % Plt Count (150-450) k/uL Neutrophils # (1.3-7.7) k/uL Monocytes # (0-1.0) k/uL Chloride (98-107) mmol/L Carbon Dioxide (22-30) mmol/L BUN (7-17) mg/dL POC Glucose (mg/dL) 168 H 206 H 110 H (75-99) mg/dL Ionized Calcium Sherine (4.5-5.3) mg/dL Total Protein (6.3-8.2) g/dL Albumin (3.5-5.0) g/dL Vitamin D 25-Hydroxy (30.0-100.0) ng/mL PTH Intact (14.0-72.0) pg/mL 05/17/17 05/17/17 Range/Units 08:08 08:08 WBC 20.8 H (3.8-10.6) k/uL Hgb 8.6 L (11.4-16.0) gm/dL Hct 28.4 L (34.0-46.0) % MCV 73.1 L (80.0-100.0) fL MCH 22.2 L (25.0-35.0) pg MCHC 30.4 L (31.0-37.0) g/dL RDW 20.7 H (11.5-15.5) % Plt Count 136 L (150-450) k/uL Neutrophils # 15.7 H (1.3-7.7) k/uL Monocytes # 1.1 H (0-1.0) k/uL Chloride 96 L (98-107) mmol/L Carbon Dioxide 34 H (22-30) mmol/L BUN 43 H (7-17) mg/dL POC Glucose (mg/dL) (75-99) mg/dL Ionized Calcium Sherine (4.5-5.3) mg/dL Total Protein 5.4 L (6.3-8.2) g/dL Albumin 3.3 L (3.5-5.0) g/dL Vitamin D 25-Hydroxy (30.0-100.0) ng/mL PTH Intact (14.0-72.0) pg/mL Microbiology - Last 24 Hours (Table) 05/05/17 16:15 Fungal Culture - Preliminary Pleural Fluid Assessment and Plan Plan: Assessment: #1. Hypocalcemia. Calcium level was 6.4 and May 15 with an albumin level of 2.1. Her corrected calcium was near 8.0. She did receive IV calcium gluconate 2 g on May 15 and calcium level today is 8.4 and albumin level is 3.3. She is also maintained on Loop diuretics which can lead to urinary calcium wasting. Additionally she received blood transfusion on May 15 which can lead to hypocalcemia due to chelation from citrate. PTH was appropriately elevated. Vitamin D level noted to be low. Magnesium replete. #2. Right-sided pleural effusion status post thoracentesis and chest tube placement. #3. Acute anemia status post packed red blood cell transfusion. Hemoglobin 8.6 today. #4. Pneumonia. Sputum culture positive for Corynebacterium. Plan: Start Drisdol 50,000 units weekly. Follow-up 1,25 vitamin D3 level. Repeat electrolytes in the morning.
--- NOTE | 2017-05-17 11:31 | XR ---
EXAMINATION TYPE: XR chest 1V portable DATE OF EXAM: 05/17/2017 COMPARISON: Prior chest x-ray 05/16/2017 HISTORY: Status post chest tube removal TECHNIQUE: Single frontal view of the chest is obtained. FINDINGS: There is been interval removal of the pleural catheter on the right. Persistent abnormal i ncreased density is present at the right lung base. No evident pneumothorax. IMPRESSION: No evident complication status post chest tube removal.
[2017-05-17 11:45] LABS: Glucose,Whole Blood 183 mg/dL (75-99)
--- NOTE | 2017-05-17 12:13 | P.PN ---
Subjective 05/02/17 This is a 57-year-old female patient being seen, examined and evaluated. Patient is well-known to our services. This Patient comes in with complaints of shortness of breath that had been increasing over the last few days. The patient does have a significant medical history for CHF, COPD that is severe, chronic persistent asthma but severe, atrial fibrillation, renal insufficiency and liver disease. This patient has a known history for reoccurring pneumonia as well. Patient states she uses 4-5 L of supplemental oxygen at home at all times. Upon examination the patient's resting up in bed on 5 L of supplemental oxygen, she states she has shortness of breath with any minimal exertion as well as extensive conversation. Chest x-ray has been reviewed and shows an increasing right pleural effusion which is associated with atelectasis, possible pulmonary artery hypertension, and congestive heart failure. 05/03/17 upon examination today the patient's resting up in bed and continues to be on 5 L of supplemental oxygen. Patient continues to have shortness of breath with any minimal exertion and extensive conversation. Patient did undergo an ultrasound of the chest yesterday which revealed a right pleural effusion fluid pocket of 10.4 cm this has increased significantly since her last ultrasound of the chest which was done 02/08/2017 which showed a right pleural effusion pocket of 4.2 at that time. During that admission in January the effusion was too small to undergo a thoracentesis. Of note ,since its progression, the patient is a candidate to have the thoracentesis performed in regards to size. However the patient was on Coumadin for chronic A. fib and her INR yesterday was 2.9. Yesterday we discontinued the Coumadin and put the patient on Lovenox in preparation for thoracentesis. A repeat INR was performed today and is currently 3.6. We would like the patient's INR to be closer to 1.4 before we perform the thoracentesis. Repeat labs will be drawn tomorrow. 05/04/17 examination today the patient's resting up in bed and continues on 5 L of supplemental oxygen. Patient states she is a little less short of breath today than previously. However she still continues to have shortness of breath with exertion. Patient's INR today was 3.7, which is still too high to undergo a thoracentesis. Labs have been reviewed. We truly the increase in INR due to the patient being on Levaquin as a side effect. 05/05/17- upon examination today the patient is resting up in bed and continues on the 5 L of supplemental oxygen. The patient's INR today is 1.3 therefore we can go forth with the thoracentesis. The procedure as well as the risk and benefits have been discussed at length with the patient QUESTIONS have been answered. After the thoracentesis is completed the fluid will be sent for lab workup. The patient will be able to start back on her Coumadin tonight. The patient should continue with Lovenox until her INR is more than 1.8. Patient continues to have shortness of breath with exertion. 05/06/17- patient did undergo a thoracentesis yesterday. 1.6 L of clear yellow pleural fluid was removed. It was discovered on the post x-ray at the patient did have a 20% pneumothorax. The patient was asymptomatic at that time. The patient was to be watched closely overnight and have a repeat chest x-ray that evening which was stable and another one this morning which dates show a possible slight increase in the pneumothorax. CT of the chest without contrast was obtained and results are not readily available. We will consult cardiothoracic to follow the patient and interventional radiology to place a pigtail catheter. Upon examination the patient is resting up in bed and despite the pneumothorax the patient states her breathing is better today after having the fluid removed. Patient is still requiring 4-5 L of supplemental oxygen however she said her shortness of breath has decreased. Patient is afebrile no further complaints. 05/07/17 and 05/08/17, please refer to DR. JULIO Gao note, as he covered these days. 05/09/17-upon examination today the patient's resting up in bed on 5 L of supplemental oxygen. Chest x-rays have been reviewed and the patient still has a pneumothorax that has not improved, pneumothorax remains about 30%. Therefore the patient will ultimately require a chest tube placement by interventional radiology. Patient continues to feel short of breath and tight. Today she states she feels slightly worse than yesterday in regards to her breathing. We'll recheck her CBC CMP and PT/INR. Patient has had her Coumadin on hold since pneumothorax and she has been receiving Lovenox. 05/10/17- on examination today the patient has just came back from interventional radiology after pigtail chest tube insertion. There is approximately 300 ML's of serosanguineous drainage noted upon arrival and the pleural VAC has not been attached to suction yet at this time. Patient will be hooked up to wall suction. Patient states that this initially received the chest tube she had immediate relief in her shortness of breath which decreased significantly. Patient states she is breathing much better post procedure. Patient is noted to be sitting up in bed and continues on 5 L of supplemental oxygen. Labs and radiology reports have been reviewed. 05/11/17- upon examination today the patient is resting up in bed and states she feels better today. Patient continues on 5 L of supplemental oxygen. Patient still has her chest tube in and has had approximately 700 ML's of serosanguineous output total since it was inserted. Her appetite has improved slightly as well. Patient states she is much more comfortable today. She continues on IV Solu-Medrol, updrafts and antibiotics. 05/12/17- today the patient is seen resting in bed on 4-5 L of oxygen. The patient states that she continues to have a productive cough with congestion. She is breathing easier with less effort. Appetite continues to improve. Her chest tube shows an output of approximately 875 ML's total output. Continues to be hooked up to suction. States her appetite continues to wax and wane. Chest x-ray from today has been reviewed patient's hydropneumothorax has been improved and remains about 15%. 05/13/17-today the patient seen resting up in bed on 4-5 L of supplemental oxygen via nasal cannula. She continues to have a productive cough with congestion however she states this is slightly improved today. She continues to breathe easier with less effort. Currently she is eating. Her chest tube shows approximately a total of 1100 ML's of serosanguineous drainage. Coumadin is still currently on hold and she is utilizing Lovenox. Chest x-ray is pending. No further complaints no overnight events. She is utilizing her incentive spirometer and pulls volumes of 1750. We will decrease her steroids today. 05/14/17, patient seen and evaluated examined today she is complaining of some shortness of breath and congestion however not producing much sputum her chest x -ray from today has been reviewed very small residual pneumothorax and small effusions seen she has put out another 350 mL in the last 48 hours the pleural VAC in control is adequate chest tube is connected with the 20 cm water of section is doing IS regularly on 4-5 L oxygen with stable oxygenation 05/15/17, patient seen and evaluated examined care plan discussed with the nurse at length critical care time spent 35 minutes chest x-ray from today reviewed the laboratory data reviewed as well care plan discussed with the primary service, patient is complaining of some weakness and tiredness has been congested as well and slightly more short of breath however her chest x-ray looks much improved she had put out more than 300 mL and pleural VAC December chest x-ray from today reveal almost resolution of pneumothorax some reexpansion pulmonary edema in the right lower lobe versus right lower lobe pneumonia cannot be excluded she does have cough but no sputum is coming out she remains on 4 L oxygen, she is being planned for replacement of calcium transfusion of 2 unit packed RBC replacement of potassium and placement of new peripheral IVs antibiotics in the form of IV Zosyn is being started 05/16/17- upon examination today the patient is seen resting up in bed on 5 L of supplemental oxygen. Chest x-ray has been reviewed and does show improvement in the pneumothorax with some reexpansion pulmonary edema in the right lower lobe versus right lower lobe pneumonia cannot be excluded. Patient's electrolytes known to be off therefore nephrology will be consult it. Patient is also being seen by infectious disease and cardiology. Patient's pleural low back continues to be patent and draining serosanguineous fluids. The pleural VAC chamber was changed today at 6 AM. The patient is noted that have 70 ML out between 6 AM and 9 AM. Patient's hemoglobin is stable today at 8.6. No further signs of bleeding. Patient is using her incentive spirometer and pulling volumes of approximately thousand ML. 05/17/17 upon examination the patient is resting up in bed on [address] of [address] oxygen[address] Hinds did remove the chest tube without complication. Chest x-ray has been obtained postprocedure and shows no complication post chest tube removal, no pneumothorax. Patient has been hemodynamically stable. She is resting more comfortably. Hemoglobin remained stable at 8.6. She denies any pain or discomfort at this time. She continues to be followed by nephrology as well as infectious disease. Objective - Vital Signs Vital signs: Vital Signs Temp 98.4 F 05/17/17 08:19 Pulse 76 05/17/17 11:24 Resp 18 05/17/17 08:19 BP 113/68 05/17/17 08:19 Pulse Ox 100 05/17/17 08:19 Intake & Output 05/16/17 05/17/17 05/17/17 18:59 06:59 18:59 Intake Total 1512 830 Output Total 5230 4140 Balance -3718 -3310 Weight 55 kg 51 kg Intake: IV 732 Sodium Chloride 0.9% 1, 732 000 ml @ 100 mls/hr IV . Q10H [facility] Rx#:[id number] Oral 780 830 Output: Chest Tube Drainage 130 40 Chest Tube Right Lateral 130 40 Chest Urine 5100 4100 Uretheral ([place]) 1700 2000 Other: Voiding Method Indwelling Catheter Indwelling Catheter Indwelling Catheter - Exam GENERAL EXAM: Alert, cachectic, comfortable in no apparent distress. HEAD: Normocephalic. EYES: Normal reaction of pupils, equal size. NOSE: Clear with pink turbinates. THROAT: No erythema or exudates. NECK: No masses, no JVD. CHEST: No chest wall deformity. LUNGS: Poor air entry is present, scattered rhonchi as well as expiratory wheezes noted throughout. Right-sided pigtail chest tube has been removed dressing is in place. CVS: S1 and S2 normal with no audible mumurs, regular rhythm. ABDOMEN: No hepatosplenomegaly, normal bowel sounds, no guarding or rigidity. EXTREMITIES: Trace edema noted, pedal pulses palpable. SKIN: No rashes, dressing in place to coccyx wound CENTRAL NERVOUS SYSTEM: No focal deficits, tone is normal in all 4 extremities. - Labs CBC & Chem 7: 05/17/17 08:08 05/17/17 08:08 Labs: Abnormal Lab Results - Last 24 Hours (Table) 05/16/17 05/16/17 05/16/17 Range/Units 10:31 16:30 20:03 WBC (3.8-10.6) k/uL Hgb (11.4-16.0) gm/dL Hct (34.0-46.0) % MCV (80.0-100.0) fL MCH (25.0-35.0) pg MCHC (31.0-37.0) g/dL RDW (11.5-15.5) % Plt Count (150-450) k/uL Neutrophils # (1.3-7.7) k/uL Monocytes # (0-1.0) k/uL Chloride (98-107) mmol/L Carbon Dioxide (22-30) mmol/L BUN (7-17) mg/dL POC Glucose (mg/dL) 168 H 206 H (75-99) mg/dL Total Protein (6.3-8.2) g/dL Albumin (3.5-5.0) g/dL Vitamin D 25-Hydroxy 11.5 L (30.0-100.0) ng/mL PTH Intact 143.8 H (14.0-72.0) pg/mL 05/17/17 05/17/17 05/17/17 Range/Units 07:06 08:08 08:08 WBC 20.8 H (3.8-10.6) k/uL Hgb 8.6 L (11.4-16.0) gm/dL Hct 28.4 L (34.0-46.0) % MCV 73.1 L (80.0-100.0) fL MCH 22.2 L (25.0-35.0) pg MCHC 30.4 L (31.0-37.0) g/dL RDW 20.7 H (11.5-15.5) % Plt Count 136 L (150-450) k/uL Neutrophils # 15.7 H (1.3-7.7) k/uL Monocytes # 1.1 H (0-1.0) k/uL Chloride 96 L (98-107) mmol/L Carbon Dioxide 34 H (22-30) mmol/L BUN 43 H (7-17) mg/dL POC Glucose (mg/dL) 110 H (75-99) mg/dL Total Protein 5.4 L (6.3-8.2) g/dL Albumin 3.3 L (3.5-5.0) g/dL Vitamin D 25-Hydroxy (30.0-100.0) ng/mL PTH Intact (14.0-72.0) pg/mL 05/17/17 Range/Units 11:43 WBC (3.8-10.6) k/uL Hgb (11.4-16.0) gm/dL Hct (34.0-46.0) % MCV (80.0-100.0) fL MCH (25.0-35.0) pg MCHC (31.0-37.0) g/dL RDW (11.5-15.5) % Plt Count (150-450) k/uL Neutrophils # (1.3-7.7) k/uL Monocytes # (0-1.0) k/uL Chloride (98-107) mmol/L Carbon Dioxide (22-30) mmol/L BUN (7-17) mg/dL POC Glucose (mg/dL) 183 H (75-99) mg/dL Total Protein (6.3-8.2) g/dL Albumin (3.5-5.0) g/dL Vitamin D 25-Hydroxy (30.0-100.0) ng/mL PTH Intact (14.0-72.0) pg/mL Microbiology - Last 24 Hours (Table) 05/05/17 16:15 Fungal Culture - Preliminary Pleural Fluid Assessment and Plan Plan: Assessment Right-sided pneumothorax Right-sided pleural effusion with right sided pneumonia suspect mixed/gram- negative in nature Acute exacerbation of chronic obstructive pulmonary disease Acute on chronic hypoxic respiratory failure Congestive heart failure Probable pulmonary hypertension Atrial fibrillation Chronic anemia Severe protein calorie malnutrition Hypocalcemia Plan Medications have been reviewed and will be continued as ordered. Continue with IV antibiotics. Chest tube to wall suction, continue to monitor output. We will continue to monitor the pneumothorax. Repeat labs tomorrow. May restart Coumadin, d/c lovenox when INR is greater than 2. Pleural fluid has been sent for lab workup. Continue with Solu-Medrol and budesonide as well as Mucinex. Repeat labs in the morning. Cardiology on consult. Infectious disease on consult. Nephrology on consult. Continue with pulmonary hygiene, coughing and deep breathing exercises, and supportive care. Supplemental oxygen to maintain oxygen saturations of 92% or better. Continue nebulizer treatments. GI and DVT prophylaxis. Ensure 3 times a day with meals. We will continue to monitor labs/results and adjust treatment as necessary. Further recommendations pending. I performed an examination of the patient and discussed their management with the nurse practitioner. I have reviewed the nurse practitioner's note and agree with the documented findings and plan of care.
--- NOTE | 2017-05-17 12:14 | CDI ---
In responding to this query, please exercise your independent professional judgment. The [facility] Coding Staff and Clinical Documentation Specialists appreciate your assistance in clarifying documentation, maintaining compliance with coding guidelines, accurately documenting patients condition and capturing severity of illness. The fact that a question is asked does not imply that any particular answer is desired or expected. Communication forms are a method of clarifying documentation and are not made part of the Legal Health Record. Thank you in advance for your clarification. Last Revision, August 2015 Yolanda Diallo [address] [facility] [place] [address] Documentation Clarification Form Date: 05/17/2017 12:03:00 PM From: Lynette Evans RN, CCDS Admit Date: 05/02/2017 4:27:00 AM Patient Name: Mariah Loya Visit Number: [id number] Dr. Morales Richardson diagnosis of anemia lacks specificity to accurately reflect your patients severity of condition and clarification is needed. Patient history/risk factors: COPD, Chronic atrial Fib, advanced mitral stenosis, chronic anemia Clinical Indicators: Hemoglobin: 10.6/9.1/8.4/8.3/8.6/8.9/8.6 Hematocrit: 20.2/20/20.1/19.9/31.4/31.7/28.4 Treatment: 2 units PRBC's transfused Feosol 325 mg PO QD Vitamin K 10 MG PO QD x1 dose In order to capture the severity of condition, please clarify the type of anemia and etiology if known: Acute blood loss anemia Acute on chronic blood loss anemia Chronic blood loss anemia Iron deficiency anemia Drug induced anemia Anemia due to malignancy Nutritional anemia Anemia of chronic kidney disease Unable to determine Other, please specify Please document in your progress notes and discharge summary in order to capture severity of illness and risk of mortality. Include clinical findings that support your diagnosis. FYI: Press F11 to launch patient chart. ISACC
[2017-05-17] MEDS: ERGOCALCIFEROL 50,000 UNIT CAP PO SCH (13:01)
[2017-05-17] MEDS: ALPRAZolam 0.25 MG TAB PO PRN (14:26)
--- NOTE | 2017-05-17 16:57 | P.PCN ---
Date of Procedure: 05/17/17 Preoperative Diagnosis: Right pneumothorax, right pleural effusion, cardiomyopathy chronic systolic heart failure, mitral stenosis Postoperative Diagnosis: As above Procedure(s) Performed: Removal of right-sided chest tube Implants: Surgeon: Segun Hinds Estimated Blood Loss (ml): 0 Condition: stable Disposition: floor Indications for Procedure: As above Operative Findings: As below Description of Procedure: Patient prepared in usual fashion 80 around the chest U was thoroughly cleaned sutures were removed the pigtail catheter was cut and eventually removed in toto the area was again clean dry dressing were obtained post procedure chest x- ray report no recurrence of pneumothorax seen, patient tolerated procedure well no complications noted
[2017-05-17 17:24] LABS: Glucose,Whole Blood 269 mg/dL (75-99)
[2017-05-17] MEDS: ATORVASTATIN 40 MG TAB PO SCH (20:29)
[2017-05-17] MEDS: MONTELUKAST 10 MG TAB PO SCH (20:29)
[2017-05-17] MEDS: traZODone HCL 50 MG TAB PO SCH (20:30)
[2017-05-17 20:47] LABS: Glucose,Whole Blood 129 mg/dL (75-99)
[2017-05-18] MEDS: HYDROmorphone 1 MG/ML 1 ML SYRINGE IVP SCH (00:35)
[2017-05-18] MEDS: HYDROmorphone 1 MG/ML 1 ML SYRINGE IVP PRN ×3 (04:00→20:31)
[2017-05-18] MEDS: HYDROcodone/APAP 10-325MG 1 EACH TAB PO PRN ×3 (05:52→17:11)
[2017-05-18 06:52] LABS: Glucose,Whole Blood 120 mg/dL (75-99)
--- NOTE | 2017-05-18 07:35 | XR ---
EXAMINATION TYPE: XR chest 2V DATE OF EXAM: 05/18/2017 COMPARISON: Prior chest x-ray 05/17/2017 HISTORY: Pneumonia TECHNIQUE: Frontal and lateral views of the chest are obtained. FINDINGS: Pleural parenchymal changes show a similar appearance, abnormal increased attenuation pres ent along the major fissure, right middle and right lower lobe. The heart remains enlarged. Evidence of old granulomatous disease and possible underlying pulmonary artery hypertension, interstitial lung disease again noted. IMPRESSION: Similar to previous exam. Findings compatible with patient's history of pneumonia. No ev ident pneumothorax. Additional findings above.
[2017-05-18] MEDS: BUDESONIDE 0.5 MG/2 ML NEBU INHALATION SCH ×2 (08:08→20:35)
[2017-05-18] MEDS: IPRATROPIUM-ALBUTEROL 3 ML NEB INHALATION SCH ×4 (08:08→20:35)
[2017-05-18 08:51] LABS: Anisocytosis Moderate; Basophils # (A) 0.1 k/uL (0-0.2); Basophils % (A) 0 %; CH 21.4; CHCM 29.2; Eosinophils # (A) 0.3 k/uL (0-0.7); Eosinophils % (A) 1 %; HCT 28.7 % (34.0-46.0); HDW 3.73; HGB 8.5 gm/dL (11.4-16.0); Hypochromasia Marked; Luc % (Auto) 1; Lymphocytes # (A) 3.4 k/uL (1.0-4.8); Lymphocytes % (A) 15 %; MCH 21.7 pg (25.0-35.0); MCHC 29.7 g/dL (31.0-37.0); MCV 73.2 fL (80.0-100.0); Mean Platelet Volume 6.7; Microcytosis Marked; Monocytes # (A) 1.1 k/uL (0-1.0); Monocytes % (A) 5 %; Neutrophils # (A) 17.1 k/uL (1.3-7.7); Neutrophils % (A) 77 %; Poikilocytosis Slight; RBC 3.92 m/uL (3.80-5.40); RDW 20.8 % (11.5-15.5); WBC 22.2 k/uL (3.8-10.6); WBC (Perox) 22.71
[2017-05-18] MEDS: INSULIN LISPRO (humaLOG) 300 UNIT/3 ML VIAL SQ SCH ×4 (08:57→21:51)
[2017-05-18] MEDS: PIPERACILLIN-TAZOBACTAM 3.375 GM in DEXTROSE/WATER 1 50ML.BAG IVPB SCH ×2 (09:00→17:10)
[2017-05-18] MEDS: POTASSIUM CHLORIDE ER 10 MEQ TAB.ER.PRT PO SCH (09:00)
[2017-05-18] MEDS: FUROSEMIDE 40 MG TAB PO SCH ×2 (09:00→21:51)
[2017-05-18] MEDS: ENOXAPARIN 40 MG/0.4 ML SYRINGE SQ SCH (09:00)
[2017-05-18] MEDS: guaiFENesin 600 MG TABLET.ER PO SCH ×2 (09:01→21:51)
[2017-05-18] MEDS: DOCUSATE 100 MG CAP PO SCH (09:01)
[2017-05-18] MEDS: DIGOXIN 125 MCG TAB PO SCH (09:01)
[2017-05-18] MEDS: FERROUS SULFATE 325 MG TAB PO SCH (09:02)
[2017-05-18] MEDS: methylPREDNISolone SOD SUCCI 40 MG/ML 1 ML VIAL IV SCH (09:02)
[2017-05-18 09:07] LABS: ALT 46 U/L (9-52); AST 25 U/L (14-36); Alkaline Phosphatase 97 U/L (38-126); Anion Gap 10 mmol/L; Blood Urea Nitrogen 44 mg/dL (7-17); Calcium 8.6 mg/dL (8.4-10.2); Carbon Dioxide 35 mmol/L (22-30); Chloride 92 mmol/L (98-107); Glucose 163 mg/dL (74-99); Non-African American GFR(MDRD) >60 (>60 ml/min/1.73 sqM); Potassium 4.1 mmol/L (3.5-5.1); Sodium 137 mmol/L (137-145); Total Bilirubin 0.7 mg/dL (0.2-1.3); Total Protein 5.6 g/dL (6.3-8.2)
--- NOTE | 2017-05-18 09:09 | PN ---
DATE OF SERVICE: 05/17/2017 This is a 57-year-old white female who has multiple chronic ileus and says she is known to have chronic atrial fibrillation with severe mitral stenosis. She has had mitral valve surgery in the past and she is also known to have chronic obstructive coronary disease and diabetes, hypertensive cardiovascular disease and also she has chronic anemia due to blood loss. She has had previous GI bleeding in the past. She also has chronic anemia due to chronic disease and she has had a history of renal failure. Patient was admitted at this time because of severe shortness of breath and she was found to have right upper lobe pneumonia and pleural effusion and she had thoracentesis and she developed pneumothorax and chest tube was inserted. Dr. Hinds was following the patient for her lung problems and chest x-ray showed stable findings and Dr. Hinds took the chest tube out today. Her hemoglobin is now around 8.6 and she has received multiple transfusions during this hospitalization and she also apparently had acute on chronic anemia. Due to acute blood loss possibly from GI bleeding and will check her stool for occult blood and she is on Coumadin. She also has low back pain and she is receiving Dilaudid IV and Dwale on p.r.n. basis. She has had evaluation by cardiac surgeon in the past because of her comorbidities and chronic atrial fibrillation and congestive heart failure. The cardiac surgeon recommended continued medical management. The patient is also homeless now and manager social services is trying to make arrangements for discharge planning. Prognosis guarded. MTDD
[2017-05-18 11:10] LABS: Glucose,Whole Blood 190 mg/dL (75-99)
--- NOTE | 2017-05-18 12:22 | P.PN ---
Subjective 05/02/17 This is a 57-year-old female patient being seen, examined and evaluated. Patient is well-known to our services. This Patient comes in with complaints of shortness of breath that had been increasing over the last few days. The patient does have a significant medical history for CHF, COPD that is severe, chronic persistent asthma but severe, atrial fibrillation, renal insufficiency and liver disease. This patient has a known history for reoccurring pneumonia as well. Patient states she uses 4-5 L of supplemental oxygen at home at all times. Upon examination the patient's resting up in bed on 5 L of supplemental oxygen, she states she has shortness of breath with any minimal exertion as well as extensive conversation. Chest x-ray has been reviewed and shows an increasing right pleural effusion which is associated with atelectasis, possible pulmonary artery hypertension, and congestive heart failure. 05/03/17 upon examination today the patient's resting up in bed and continues to be on 5 L of supplemental oxygen. Patient continues to have shortness of breath with any minimal exertion and extensive conversation. Patient did undergo an ultrasound of the chest yesterday which revealed a right pleural effusion fluid pocket of 10.4 cm this has increased significantly since her last ultrasound of the chest which was done 02/08/2017 which showed a right pleural effusion pocket of 4.2 at that time. During that admission in January the effusion was too small to undergo a thoracentesis. Of note ,since its progression, the patient is a candidate to have the thoracentesis performed in regards to size. However the patient was on Coumadin for chronic A. fib and her INR yesterday was 2.9. Yesterday we discontinued the Coumadin and put the patient on Lovenox in preparation for thoracentesis. A repeat INR was performed today and is currently 3.6. We would like the patient's INR to be closer to 1.4 before we perform the thoracentesis. Repeat labs will be drawn tomorrow. 05/04/17 examination today the patient's resting up in bed and continues on 5 L of supplemental oxygen. Patient states she is a little less short of breath today than previously. However she still continues to have shortness of breath with exertion. Patient's INR today was 3.7, which is still too high to undergo a thoracentesis. Labs have been reviewed. We truly the increase in INR due to the patient being on Levaquin as a side effect. 05/05/17- upon examination today the patient is resting up in bed and continues on the 5 L of supplemental oxygen. The patient's INR today is 1.3 therefore we can go forth with the thoracentesis. The procedure as well as the risk and benefits have been discussed at length with the patient QUESTIONS have been answered. After the thoracentesis is completed the fluid will be sent for lab workup. The patient will be able to start back on her Coumadin tonight. The patient should continue with Lovenox until her INR is more than 1.8. Patient continues to have shortness of breath with exertion. 05/06/17- patient did undergo a thoracentesis yesterday. 1.6 L of clear yellow pleural fluid was removed. It was discovered on the post x-ray at the patient did have a 20% pneumothorax. The patient was asymptomatic at that time. The patient was to be watched closely overnight and have a repeat chest x-ray that evening which was stable and another one this morning which dates show a possible slight increase in the pneumothorax. CT of the chest without contrast was obtained and results are not readily available. We will consult cardiothoracic to follow the patient and interventional radiology to place a pigtail catheter. Upon examination the patient is resting up in bed and despite the pneumothorax the patient states her breathing is better today after having the fluid removed. Patient is still requiring 4-5 L of supplemental oxygen however she said her shortness of breath has decreased. Patient is afebrile no further complaints. 05/07/17 and 05/08/17, please refer to DR. JULIO Gao note, as he covered these days. 05/09/17-upon examination today the patient's resting up in bed on 5 L of supplemental oxygen. Chest x-rays have been reviewed and the patient still has a pneumothorax that has not improved, pneumothorax remains about 30%. Therefore the patient will ultimately require a chest tube placement by interventional radiology. Patient continues to feel short of breath and tight. Today she states she feels slightly worse than yesterday in regards to her breathing. We'll recheck her CBC CMP and PT/INR. Patient has had her Coumadin on hold since pneumothorax and she has been receiving Lovenox. 05/10/17- on examination today the patient has just came back from interventional radiology after pigtail chest tube insertion. There is approximately 300 ML's of serosanguineous drainage noted upon arrival and the pleural VAC has not been attached to suction yet at this time. Patient will be hooked up to wall suction. Patient states that this initially received the chest tube she had immediate relief in her shortness of breath which decreased significantly. Patient states she is breathing much better post procedure. Patient is noted to be sitting up in bed and continues on 5 L of supplemental oxygen. Labs and radiology reports have been reviewed. 05/11/17- upon examination today the patient is resting up in bed and states she feels better today. Patient continues on 5 L of supplemental oxygen. Patient still has her chest tube in and has had approximately 700 ML's of serosanguineous output total since it was inserted. Her appetite has improved slightly as well. Patient states she is much more comfortable today. She continues on IV Solu-Medrol, updrafts and antibiotics. 05/12/17- today the patient is seen resting in bed on 4-5 L of oxygen. The patient states that she continues to have a productive cough with congestion. She is breathing easier with less effort. Appetite continues to improve. Her chest tube shows an output of approximately 875 ML's total output. Continues to be hooked up to suction. States her appetite continues to wax and wane. Chest x-ray from today has been reviewed patient's hydropneumothorax has been improved and remains about 15%. 05/13/17-today the patient seen resting up in bed on 4-5 L of supplemental oxygen via nasal cannula. She continues to have a productive cough with congestion however she states this is slightly improved today. She continues to breathe easier with less effort. Currently she is eating. Her chest tube shows approximately a total of 1100 ML's of serosanguineous drainage. Coumadin is still currently on hold and she is utilizing Lovenox. Chest x-ray is pending. No further complaints no overnight events. She is utilizing her incentive spirometer and pulls volumes of 1750. We will decrease her steroids today. 05/14/17, patient seen and evaluated examined today she is complaining of some shortness of breath and congestion however not producing much sputum her chest x -ray from today has been reviewed very small residual pneumothorax and small effusions seen she has put out another 350 mL in the last 48 hours the pleural VAC in control is adequate chest tube is connected with the 20 cm water of section is doing IS regularly on 4-5 L oxygen with stable oxygenation 05/15/17, patient seen and evaluated examined care plan discussed with the nurse at length critical care time spent 35 minutes chest x-ray from today reviewed the laboratory data reviewed as well care plan discussed with the primary service, patient is complaining of some weakness and tiredness has been congested as well and slightly more short of breath however her chest x-ray looks much improved she had put out more than 300 mL and pleural VAC December chest x-ray from today reveal almost resolution of pneumothorax some reexpansion pulmonary edema in the right lower lobe versus right lower lobe pneumonia cannot be excluded she does have cough but no sputum is coming out she remains on 4 L oxygen, she is being planned for replacement of calcium transfusion of 2 unit packed RBC replacement of potassium and placement of new peripheral IVs antibiotics in the form of IV Zosyn is being started 05/16/17- upon examination today the patient is seen resting up in bed on 5 L of supplemental oxygen. Chest x-ray has been reviewed and does show improvement in the pneumothorax with some reexpansion pulmonary edema in the right lower lobe versus right lower lobe pneumonia cannot be excluded. Patient's electrolytes known to be off therefore nephrology will be consult it. Patient is also being seen by infectious disease and cardiology. Patient's pleural low back continues to be patent and draining serosanguineous fluids. The pleural VAC chamber was changed today at 6 AM. The patient is noted that have 70 ML out between 6 AM and 9 AM. Patient's hemoglobin is stable today at 8.6. No further signs of bleeding. Patient is using her incentive spirometer and pulling volumes of approximately thousand ML. 05/17/17 upon examination the patient is resting up in bed on [address] Hinds did remove the chest tube without complication. Chest x-ray has been obtained postprocedure and shows no complication post chest tube removal, no pneumothorax. Patient has been hemodynamically stable. She is resting more comfortably. Hemoglobin remained stable at 8.6. She denies any pain or discomfort at this time. She continues to be followed by nephrology as well as infectious disease. 05/18/17 upon examination today the patient's resting up in bed on 5 L of supplemental oxygen. Chest tube insertion site noted to have small amount of serosanguineous drainage on the dressing. Chest x-ray has been reviewed and is stable. Labs reviewed. Hemoglobin today is 8.5. Patient had no overnight events no further complaints. Objective - Vital Signs Vital signs: Vital Signs Temp 98.4 F 05/18/17 08:08 Pulse 78 05/18/17 12:11 Resp 20 05/18/17 11:44 BP 113/60 05/18/17 08:08 Pulse Ox 100 05/18/17 08:08 Intake & Output 05/17/17 05/18/17 05/18/17 18:59 06:59 18:59 Intake Total 130 410 Output Total 1400 4100 1200 Balance -1270 -3010 -1200 Weight 50 kg 50 kg Intake: IV 130 120 0.9 80 120 Piperacillin-Tazobactam 3 50 .375 gm In Dextrose/Water 1 50ml.bag @ 12.5 mls/hr IVPB Q8HR MARY CARMEN Rx#: [id number] Intake, IV Titration 50 Amount Piperacillin-Tazobactam 3 50 .375 gm In Dextrose/Water 1 50ml.bag @ 12.5 mls/hr IVPB Q8HR MARY CARMEN Rx#: [id number] Oral 240 Output: Urine 1400 4100 1200 Uretheral ([place]) 3600 Other: Voiding Method Indwelling Catheter Indwelling Catheter Indwelling Catheter # Bowel Movements 1 - Exam GENERAL EXAM: Alert, cachectic, comfortable in no apparent distress. HEAD: Normocephalic. EYES: Normal reaction of pupils, equal size. NOSE: Clear with pink turbinates. THROAT: No erythema or exudates. NECK: No masses, no JVD. CHEST: No chest wall deformity. LUNGS: Poor air entry is present, scattered rhonchi as well as expiratory wheezes noted throughout. Right-sided pigtail chest tube has been removed dressing is in place. CVS: S1 and S2 normal with no audible mumurs, regular rhythm. ABDOMEN: No hepatosplenomegaly, normal bowel sounds, no guarding or rigidity. EXTREMITIES: Trace edema noted, pedal pulses palpable. SKIN: No rashes, dressing in place to coccyx wound CENTRAL NERVOUS SYSTEM: No focal deficits, tone is normal in all 4 extremities. - Labs CBC & Chem 7: 05/18/17 08:18 05/18/17 08:18 Labs: Abnormal Lab Results - Last 24 Hours (Table) 05/17/17 05/17/17 05/18/17 Range/Units 17:19 20:45 06:51 WBC (3.8-10.6) k/uL Hgb (11.4-16.0) gm/dL Hct (34.0-46.0) % MCV (80.0-100.0) fL MCH (25.0-35.0) pg MCHC (31.0-37.0) g/dL RDW (11.5-15.5) % Plt Count (150-450) k/uL Neutrophils # (1.3-7.7) k/uL Monocytes # (0-1.0) k/uL Chloride (98-107) mmol/L Carbon Dioxide (22-30) mmol/L BUN (7-17) mg/dL Glucose (74-99) mg/dL POC Glucose (mg/dL) 269 H 129 H 120 H (75-99) mg/dL Total Protein (6.3-8.2) g/dL Albumin (3.5-5.0) g/dL 05/18/17 05/18/17 05/18/17 Range/Units 08:18 08:18 11:08 WBC 22.2 H (3.8-10.6) k/uL Hgb 8.5 L (11.4-16.0) gm/dL Hct 28.7 L (34.0-46.0) % MCV 73.2 L (80.0-100.0) fL MCH 21.7 L (25.0-35.0) pg MCHC 29.7 L (31.0-37.0) g/dL RDW 20.8 H (11.5-15.5) % Plt Count 141 L (150-450) k/uL Neutrophils # 17.1 H (1.3-7.7) k/uL Monocytes # 1.1 H (0-1.0) k/uL Chloride 92 L (98-107) mmol/L Carbon Dioxide 35 H (22-30) mmol/L BUN 44 H (7-17) mg/dL Glucose 163 H (74-99) mg/dL POC Glucose (mg/dL) 190 H (75-99) mg/dL Total Protein 5.6 L (6.3-8.2) g/dL Albumin 3.3 L (3.5-5.0) g/dL Microbiology - Last 24 Hours (Table) 05/05/17 16:15 Acid Fast Bacilli Smear - Final Pleural Fluid Acid Fast Bacilli Culture - Preliminary Assessment and Plan Plan: Assessment Right-sided pneumothorax Right-sided pleural effusion with right sided pneumonia suspect mixed/gram- negative in nature Acute exacerbation of chronic obstructive pulmonary disease Acute on chronic hypoxic respiratory failure Congestive heart failure Probable pulmonary hypertension Atrial fibrillation Chronic anemia Severe protein calorie malnutrition Hypocalcemia Plan Medications have been reviewed and will be continued as ordered. Continue with IV antibiotics. Repeat labs tomorrow. May restart Coumadin, d/c lovenox when INR is greater than 2. Pleural fluid has been sent for lab workup. Continue with Solu-Medrol and budesonide as well as Mucinex. Repeat labs in the morning. Cardiology on consult. Infectious disease on consult. Nephrology on consult. Continue with pulmonary hygiene, coughing and deep breathing exercises , and supportive care. Supplemental oxygen to maintain oxygen saturations of 92 % or better. Continue nebulizer treatments. GI and DVT prophylaxis. Ensure 3 times a day with meals. We will continue to monitor labs/results and adjust treatment as necessary. Further recommendations pending. I performed an examination of the patient and discussed their management with the nurse practitioner. I have reviewed the nurse practitioner's note and agree with the documented findings and plan of care.
[2017-05-18 15:34] LABS: INR 1.1 (<1.2); Prothrombin Time 10.8 sec (9.0-12.0)
[2017-05-18] MEDS: WARFARIN 2 MG TAB PO SCH (17:10)
[2017-05-18 17:19] LABS: Glucose,Whole Blood 168 mg/dL (75-99)
[2017-05-18 20:24] LABS: Glucose,Whole Blood 117 mg/dL (75-99)
--- NOTE | 2017-05-18 20:58 | P.PN ---
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 Became profoundly weak. Was also having increasing amounts of pain to the right lower side of her chest. Because the she presented to the emergency center. Telemetry was some steroids and respiratory treatments and this has helped her as well as pain medications. She has less short of breath at the moment and she wasn't admission. But still is quite miserable. She sitting upright sitting forward relates this gives her some relief of the discomfort she has in her right lower chest toward the back. She is still short of breath compared to her baseline. She has no hemoptysis but does have a mild cough at times. She is not having significant sputum Production. He is feeling slightly better since the thoracentesis. Had radiology place the pleural space evacuation which has been helpful. May come out tomorrow. she is discontent with pain medication, is instructed on importance of minimizing narcotic use with her pulmonary disease. Chest tube removed Objective - Vital Signs Vital signs: Vital Signs Temp 98.4 F 05/18/17 15:45 Pulse 88 05/18/17 20:36 Resp 18 05/18/17 15:45 BP 110/65 05/18/17 15:45 Pulse Ox 100 05/18/17 15:45 Intake & Output 05/18/17 05/18/17 05/19/17 06:59 18:59 06:59 Intake Total 410 Output Total 4100 2900 Balance -3690 -2900 Weight 50 kg 50 kg Intake: IV 120 0.9 120 Intake, IV Titration 50 Amount Piperacillin-Tazobactam 3 50 .375 gm In Dextrose/Water 1 50ml.bag @ 12.5 mls/hr IVPB Q8HR [facility] Rx#: [id number] Oral 240 Output: Urine 4100 2900 Uretheral ([place]) 3600 Other: Voiding Method Indwelling Catheter Indwelling Catheter # Bowel Movements 1 - Exam 57-year-old woman who looks much older than her stated age. She is chronically ill. HEENT: Anicteric conjunctiva are pink and moist nasal mucosa grossly intact without significant lesions, there is no thrush. Poor dentition Neck: The neck is supple without significant lymphadenopathy or thyromegaly. Lungs: Symmetrical air entry with wheezes scattered throughout the lung iqbal. Evidence of decreased breath sounds breath sounds to the right base. The extensive dullness and egophony to the right base has improved and chest tube is removed Heart: irregular no S3 loud S4 There is no significant murmur click or rub, PMI was nondisplaced. Abdomen: Positive bowel sounds soft and nontender without palpable masses or organomegaly. There was no guarding or rebound. Extremities: The extremities have just trace edema. She has no tenderness over the joints. Skin the patient has changes of diabetes her lower extremities however she has a difficulty with chronically picking at her skin and has innumerable lesions that healed over arms and legs at this time. None of them are open are grossly draining at this time is evidence of some erythema to the coccyx. With this the Aquacel silver dressing has been applied. It has the foam border. Neuro: She is awake alert oriented to person place and time and does not exhibit any acute gross focal sensory motor deficits - Labs CBC & Chem 7: 05/18/17 08:18 05/18/17 08:18 Labs: Abnormal Lab Results - Last 24 Hours (Table) 05/18/17 05/18/17 05/18/17 Range/Units 06:51 08:18 08:18 WBC 22.2 H (3.8-10.6) k/uL Hgb 8.5 L (11.4-16.0) gm/dL Hct 28.7 L (34.0-46.0) % MCV 73.2 L (80.0-100.0) fL MCH 21.7 L (25.0-35.0) pg MCHC 29.7 L (31.0-37.0) g/dL RDW 20.8 H (11.5-15.5) % Plt Count 141 L (150-450) k/uL Neutrophils # 17.1 H (1.3-7.7) k/uL Monocytes # 1.1 H (0-1.0) k/uL Chloride 92 L (98-107) mmol/L Carbon Dioxide 35 H (22-30) mmol/L BUN 44 H (7-17) mg/dL Glucose 163 H (74-99) mg/dL POC Glucose (mg/dL) 120 H (75-99) mg/dL Total Protein 5.6 L (6.3-8.2) g/dL Albumin 3.3 L (3.5-5.0) g/dL Stool Occult Blood (Negative) 05/18/17 05/18/17 05/18/17 Range/Units 11:08 14:20 17:17 WBC (3.8-10.6) k/uL Hgb (11.4-16.0) gm/dL Hct (34.0-46.0) % MCV (80.0-100.0) fL MCH (25.0-35.0) pg MCHC (31.0-37.0) g/dL RDW (11.5-15.5) % Plt Count (150-450) k/uL Neutrophils # (1.3-7.7) k/uL Monocytes # (0-1.0) k/uL Chloride (98-107) mmol/L Carbon Dioxide (22-30) mmol/L BUN (7-17) mg/dL Glucose (74-99) mg/dL POC Glucose (mg/dL) 190 H 168 H (75-99) mg/dL Total Protein (6.3-8.2) g/dL Albumin (3.5-5.0) g/dL Stool Occult Blood Positive H (Negative) 05/18/17 Range/Units 20:10 WBC (3.8-10.6) k/uL Hgb (11.4-16.0) gm/dL Hct (34.0-46.0) % MCV (80.0-100.0) fL MCH (25.0-35.0) pg MCHC (31.0-37.0) g/dL RDW (11.5-15.5) % Plt Count (150-450) k/uL Neutrophils # (1.3-7.7) k/uL Monocytes # (0-1.0) k/uL Chloride (98-107) mmol/L Carbon Dioxide (22-30) mmol/L BUN (7-17) mg/dL Glucose (74-99) mg/dL POC Glucose (mg/dL) 117 H (75-99) mg/dL Total Protein (6.3-8.2) g/dL Albumin (3.5-5.0) g/dL Stool Occult Blood (Negative) Microbiology - Last 24 Hours (Table) 05/05/17 16:15 Acid Fast Bacilli Smear - Final Pleural Fluid Acid Fast Bacilli Culture - Preliminary Laboratory Results WBC 22.2 k/uL (3.8-10.6) H 05/18/17 08:18 RBC 3.92 m/uL (3.80-5.40) 05/18/17 08:18 Hgb 8.5 gm/dL (11.4-16.0) L 05/18/17 08:18 Hct 28.7 % (34.0-46.0) L 05/18/17 08:18 MCV 73.2 fL (80.0-100.0) L 05/18/17 08:18 MCH 21.7 pg (25.0-35.0) L 05/18/17 08:18 MCHC 29.7 g/dL (31.0-37.0) L 05/18/17 08:18 RDW 20.8 % (11.5-15.5) H 05/18/17 08:18 Plt Count 141 k/uL (150-450) L 05/18/17 08:18 Neutrophils % 77 % 05/18/17 08:18 Lymphocytes % 15 % 05/18/17 08:18 Monocytes % 5 % 05/18/17 08:18 Eosinophils % 1 % 05/18/17 08:18 Basophils % 0 % 05/18/17 08:18 Neutrophils # 17.1 k/uL (1.3-7.7) H 05/18/17 08:18 Lymphocytes # 3.4 k/uL (1.0-4.8) 05/18/17 08:18 Monocytes # 1.1 k/uL (0-1.0) H 05/18/17 08:18 Eosinophils # 0.3 k/uL (0-0.7) 05/18/17 08:18 Basophils # 0.1 k/uL (0-0.2) 05/18/17 08:18 Hypochromasia Marked 05/18/17 08:18 Poikilocytosis Slight 05/18/17 08:18 Anisocytosis Moderate 05/18/17 08:18 Microcytosis Marked 05/18/17 08:18 PT 10.8 sec (9.0-12.0) 05/18/17 14:59 INR 1.1 (<1.2) 05/18/17 14:59 APTT 39.4 sec (22.0-30.0) H 05/02/17 02:30 D-Dimer 0.60 mg/L FEU (<0.60) H 05/02/17 02:30 Sodium 137 mmol/L (137-145) 05/18/17 08:18 Potassium 4.1 mmol/L (3.5-5.1) 05/18/17 08:18 Chloride 92 mmol/L (98-107) L 05/18/17 08:18 Carbon Dioxide 35 mmol/L (22-30) H 05/18/17 08:18 Anion Gap 10 mmol/L 05/18/17 08:18 BUN 44 mg/dL (7-17) H 05/18/17 08:18 Creatinine 0.65 mg/dL (0.52-1.04) 05/18/17 08:18 Est GFR (MDRD) Af Amer >60 (>60 ml/min/1.73 sqM) 05/18/17 08:18 Est GFR (MDRD) Non-Af >60 (>60 ml/min/1.73 sqM) 05/18/17 08:18 Glucose 163 mg/dL (74-99) H 05/18/17 08:18 POC Glucose (mg/dL) 117 mg/dL (75-99) H 05/18/17 20:10 POC Glu [employer] Kathy Mcnally 05/18/17 20:[address] Glu mg/dL 108 mg/dL 05/12/17 07:20 Hemoglobin A1c 5.4 % (4.2-6.1) 05/12/17 07:20 Calcium 8.6 mg/dL (8.4-10.2) 05/18/17 08:18 Ionized Calcium Sherine 4.2 mg/dL (4.5-5.3) L 05/16/17 10:31 Phosphorus 2.9 mg/dL (2.5-4.5) 05/17/17 08:08 Magnesium 2.0 mg/dL (1.6-2.3) 05/17/17 08:08 Total Bilirubin 0.7 mg/dL (0.2-1.3) 05/18/17 08:18 AST 25 U/L (14-36) 05/18/17 08:18 ALT 46 U/L (9-52) 05/18/17 08:18 Alkaline Phosphatase 97 U/L (38-126) 05/18/17 08:18 Total Creatine Kinase 90 U/L (30-135) 05/02/17 02:30 CK-MB (CK-2) 4.0 ng/mL (0.0-2.4) H* 05/02/17 02:30 CK-MB (CK-2) Rel Index 4.4 05/02/17 02:30 Troponin I 0.020 ng/mL (0.000-0.034) 05/02/17 02:30 NT-Pro-B Natriuret Pep 8080 pg/mL 05/02/17 02:30 Total Protein 5.6 g/dL (6.3-8.2) L 05/18/17 08:18 Albumin 3.3 g/dL (3.5-5.0) L 05/18/17 08:18 Vitamin D 25-Hydroxy 11.5 ng/mL (30.0-100.0) L 05/16/17 10:31 Vit D 1,25-Dihydroxy 28 pg/mL (20 - 79) 05/16/17 10:31 PTH Intact 143.8 pg/mL (14.0-72.0) H 05/16/17 10:31 Urine Color Yellow 05/02/17 23:05 Urine Appearance Clear (Clear) 05/02/17 23:05 Urine pH 6.5 (5.0-8.0) 05/02/17 23:05 Ur Specific [place] 1.012 (1.001-1.035) 05/02/17 23:05 Urine Protein Trace (Negative) H 05/02/17 23:05 Urine Glucose (UA) Negative (Negative) 05/02/17 23:05 Urine Ketones Negative (Negative) 05/02/17 23:05 Urine Blood Trace (Negative) H 05/02/17 23:05 Urine Nitrite Negative (Negative) 05/02/17 23:05 Urine Bilirubin Negative (Negative) 05/02/17 23:05 Urine Urobilinogen <2.0 mg/dL (<2.0) 05/02/17 23:05 Ur Leukocyte Esterase Negative (Negative) 05/02/17 23:05 Urine RBC 7 /hpf (0-5) H 05/02/17 23:05 Urine WBC 1 /hpf (0-5) 05/02/17 23:05 Ur Squamous Epith Cells <1 /hpf (0-4) 05/02/17 23:05 Hyaline Casts 101 /lpf (0-2) H 05/02/17 23:05 Urine Mucus Rare /hpf (None) H 05/02/17 23:05 Fluid Source Pleural 05/05/17 16:15 Fluid Color Yellow 05/05/17 16:15 Fluid Appearance Clear 05/05/17 16:15 Fluid RBC 152 /uL 05/05/17 16:15 Fluid Nucleated Cells 33 /uL 05/05/17 16:15 Fluid Polynuclear WBCs 13 % 05/05/17 16:15 Fluid Mononuclear WBCs 87 % 05/05/17 16:15 Body Fluid Glucose Source Pleural Fluid 05/05/17 16:15 Fluid Glucose 159 mg/dL 05/05/17 16:15 Body Fluid Protein Source Pleural Fluid 05/05/17 16:15 Fluid Total Protein 1289.0 mg/dL 05/05/17 16:15 Body Fluid LDH Source Pleural Fluid 05/05/17 16:15 Fluid LDH 105 U/L 05/05/17 16:15 Stool Occult Blood Positive (Negative) H 05/18/17 14:20 Urine Legionella Ag Not detected (Not detected) 05/02/17 23:05 Mycoplasma pneumon IgG 2.82 INDEX (<=0.90) H 05/03/17 07:15 Mycoplasma pneumon IgM 0.46 INDEX (<=0.90) 05/03/17 07:15 Blood Type O Positive 05/15/17 11:01 Blood Type Recheck No 05/15/17 11:01 Antibody Screen NEGATIVE 05/15/17 11:01 Crossmatch See Detail 05/15/17 11:01 Spec Expiration Date 05/18/2017 - 230005/15/17 11:01 Microbiology 05/05/17 16:15 Pleural Fluid Acid Fast Bacilli Smear - Final 05/05/17 16:15 Pleural Fluid Acid Fast Bacilli Culture - Preliminary 05/05/17 16:15 Pleural Fluid Fungal Culture - Preliminary 05/05/17 16:15 Pleural Fluid Gram Stain - Final 05/05/17 16:15 Pleural Fluid Body Fluid Culture - Final 05/05/17 18:00 Sputum Gram Stain - Final 05/05/17 18:00 Sputum Sputum Culture - Final Corynebacterium striatum 05/02/17 02:30 Blood Blood Culture - Final No Growth after 144 hours 05/02/17 23:05 Urine,Voided Urine Culture - Final Assessment and Plan (1) COPD (chronic obstructive pulmonary disease) Status: Acute (2) Afib Status: Acute (3) Pleural effusion Narrative/Plan: 57-year-old female who has advanced COPD that is oxygen and inhaled steroid dependent, but continues to smoke. Presents to Hospital feeling increasing shortness of breath. Was associated with increasing amounts of discomfort to her right lower chest especially posterior. Chest ray and ultrasound reveal evidence of an increasing effusion to that area. Potentially will have a thoracentesis. Prior cultures have been negative. No history of MRSA. Given her complex history currently be treating with piperacillin tazobactam and Levaquin plan 48 hours furhter Blood cultures are negative so far. Sputum cultures negative so far. Legionella has come back as negative Mycoplasma is positive for old disease nothing acute Thoracentesis has occurred. Fluid is negative for infection but is an exudate is noted by the chemistry. She does feel symptomatically better since this. Has been seen by cardiothoracic surgery with no plans for surgery . Cytology is negative for malignancy from the thoracentesis. Radiology consult has been requested for the pigtail Pleur-evac catheter placement allowed improvement of breathing, may be removed tomorrow. . With current steroid therapy as well as the breathing treatments she is symptomatically improving. The patient does have a stage II area on the coccyx for which the Aquacel silver foam dressing is then applied. Advised to try to not always being is sitting up position to offload some pressure to her coccyx. Status: Acute Code(s): J90 - PLEURAL EFFUSION, NOT ELSEWHERE CLASSIFIED
[2017-05-18] MEDS: ALPRAZolam 0.5 MG TAB PO PRN (21:51)
[2017-05-18] MEDS: MONTELUKAST 10 MG TAB PO SCH (21:51)
[2017-05-18] MEDS: traZODone HCL 50 MG TAB PO SCH ×2 (21:51→21:56)
[2017-05-18] MEDS: ATORVASTATIN 40 MG TAB PO SCH (21:51)
[2017-05-19] MEDS: PIPERACILLIN-TAZOBACTAM 3.375 GM in DEXTROSE/WATER 1 50ML.BAG IVPB SCH ×3 (00:04→16:00)
[2017-05-19] MEDS: HYDROmorphone 1 MG/ML 1 ML SYRINGE IVP SCH ×2 (00:04→21:33)
[2017-05-19] MEDS: ENOXAPARIN 40 MG/0.4 ML SYRINGE SQ SCH ×3 (01:36→21:30)
[2017-05-19] MEDS: HYDROmorphone 1 MG/ML 1 ML SYRINGE IVP PRN ×3 (02:32→18:08)
[2017-05-19 06:55] LABS: Glucose,Whole Blood 89 mg/dL (75-99)
[2017-05-19] MEDS: BUDESONIDE 0.5 MG/2 ML NEBU INHALATION SCH ×2 (07:18→19:06)
[2017-05-19] MEDS: IPRATROPIUM-ALBUTEROL 3 ML NEB INHALATION SCH ×4 (07:18→19:05)
[2017-05-19] MEDS: INSULIN LISPRO (humaLOG) 300 UNIT/3 ML VIAL SQ SCH ×4 (07:47→21:00)
[2017-05-19] MEDS: HYDROcodone/APAP 10-325MG 1 EACH TAB PO PRN ×3 (07:54→20:59)
[2017-05-19] MEDS: DOCUSATE 100 MG CAP PO SCH (07:58)
[2017-05-19] MEDS: DIGOXIN 125 MCG TAB PO SCH (07:58)
[2017-05-19 07:59] LABS: Anisocytosis Moderate; Basophils % (A) 0 %; CH 21.8; Eosinophils # (A) 0.2 k/uL (0-0.7); Eosinophils % (A) 1 %; HDW 3.62; HGB 7.8 gm/dL (11.4-16.0); Hypochromasia Marked; Luc # (Auto) 0.19; Luc % (Auto) 1; Lymphocytes # (A) 2.6 k/uL (1.0-4.8); Lymphocytes % (A) 15 %; MCH 21.9 pg (25.0-35.0); MCHC 30.2 g/dL (31.0-37.0); MCV 72.6 fL (80.0-100.0); Mean Platelet Volume 8.6; Microcytosis Marked; Monocytes # (A) 0.9 k/uL (0-1.0); Monocytes % (A) 5 %; Neutrophils # (A) 13.1 k/uL (1.3-7.7); Neutrophils % (A) 77 %; Poikilocytosis Slight; RBC 3.58 m/uL (3.80-5.40); RDW 21.1 % (11.5-15.5); WBC (Perox) 17.32
[2017-05-19] MEDS: FUROSEMIDE 40 MG TAB PO SCH ×2 (07:59→21:00)
[2017-05-19] MEDS: guaiFENesin 600 MG TABLET.ER PO SCH ×2 (07:59→21:00)
[2017-05-19] MEDS: POTASSIUM CHLORIDE ER 10 MEQ TAB.ER.PRT PO SCH (08:00)
[2017-05-19] MEDS: methylPREDNISolone SOD SUCCI 40 MG/ML 1 ML VIAL IV SCH (08:00)
[2017-05-19 08:05] LABS: INR 1.1 (<1.2); Prothrombin Time 10.7 sec (9.0-12.0)
[2017-05-19 08:16] LABS: ALT 43 U/L (9-52); AST 22 U/L (14-36); Alkaline Phosphatase 72 U/L (38-126); Anion Gap 5 mmol/L; Blood Urea Nitrogen 42 mg/dL (7-17); Calcium 8.7 mg/dL (8.4-10.2); Carbon Dioxide 39 mmol/L (22-30); Chloride 91 mmol/L (98-107); Glucose 67 mg/dL (74-99); Non-African American GFR(MDRD) >60 (>60 ml/min/1.73 sqM); Potassium 4.3 mmol/L (3.5-5.1); Sodium 135 mmol/L (137-145); Total Bilirubin 0.8 mg/dL (0.2-1.3); Total Protein 5.2 g/dL (6.3-8.2)
--- NOTE | 2017-05-19 08:55 | PN ---
DATE OF SERVICE: 05/18/2017 This is a 57-year-old white female who was admitted with severe shortness of breath and general weakness. She was found to have right lower lobe infiltrate and right pleural effusion and the patient was seen by Dr. Segun Hinds in consultation and she was started on IV Solu-Medrol, IV antibiotics and also updraft treatment. She also was found to have acute on chronic congestive heart failure. She has history of severe mitral stenosis and has had surgical treatment several years ago and even now patient has severe recurrent ( ) mitral stenosis and chronic congestive heart failure, chronic atrial fibrillation. Belt Sander also saw the patient in consultation and her overall cardiac status improved, but she continued to have severe shortness of breath and Dr. Hinds did a thoracentesis and removed about 1.6 L of pleural fluid and the patient developed pneumothorax then later she had a chest tube inserted by Dr. Hinds. The patient's overall condition improved and the chest tube was taken out yesterday and patient still continues to be stable, but extremely weak and short of breath. The follow-up chest x-ray shows stable without any significant change from the previous x-ray. The prognosis is guarded. Patient is also known to have diabetes mellitus and this is being controlled with NovoLog sliding scale. Her vital signs are otherwise stable. Prognosis guarded. MTDD
[2017-05-19 10:58] LABS: % Iron Saturation 10.4 % (20-50)
[2017-05-19 11:48] LABS: Glucose,Whole Blood 324 mg/dL (75-99)
[2017-05-19] MEDS: ALPRAZolam 0.25 MG TAB PO PRN (12:13)
[2017-05-19] MEDS: FERROUS SULFATE 325 MG TAB PO SCH (12:14)
--- NOTE | 2017-05-19 12:44 | P.PN ---
Subjective 05/02/17 This is a 57-year-old female patient being seen, examined and evaluated. Patient is well-known to our services. This Patient comes in with complaints of shortness of breath that had been increasing over the last few days. The patient does have a significant medical history for CHF, COPD that is severe, chronic persistent asthma but severe, atrial fibrillation, renal insufficiency and liver disease. This patient has a known history for reoccurring pneumonia as well. Patient states she uses 4-5 L of supplemental oxygen at home at all times. Upon examination the patient's resting up in bed on 5 L of supplemental oxygen, she states she has shortness of breath with any minimal exertion as well as extensive conversation. Chest x-ray has been reviewed and shows an increasing right pleural effusion which is associated with atelectasis, possible pulmonary artery hypertension, and congestive heart failure. 05/03/17 upon examination today the patient's resting up in bed and continues to be on 5 L of supplemental oxygen. Patient continues to have shortness of breath with any minimal exertion and extensive conversation. Patient did undergo an ultrasound of the chest yesterday which revealed a right pleural effusion fluid pocket of 10.4 cm this has increased significantly since her last ultrasound of the chest which was done 02/08/2017 which showed a right pleural effusion pocket of 4.2 at that time. During that admission in January the effusion was too small to undergo a thoracentesis. Of note ,since its progression, the patient is a candidate to have the thoracentesis performed in regards to size. However the patient was on Coumadin for chronic A. fib and her INR yesterday was 2.9. Yesterday we discontinued the Coumadin and put the patient on Lovenox in preparation for thoracentesis. A repeat INR was performed today and is currently 3.6. We would like the patient's INR to be closer to 1.4 before we perform the thoracentesis. Repeat labs will be drawn tomorrow. 05/04/17 examination today the patient's resting up in bed and continues on 5 L of supplemental oxygen. Patient states she is a little less short of breath today than previously. However she still continues to have shortness of breath with exertion. Patient's INR today was 3.7, which is still too high to undergo a thoracentesis. Labs have been reviewed. We truly the increase in INR due to the patient being on Levaquin as a side effect. 05/05/17- upon examination today the patient is resting up in bed and continues on the 5 L of supplemental oxygen. The patient's INR today is 1.3 therefore we can go forth with the thoracentesis. The procedure as well as the risk and benefits have been discussed at length with the patient QUESTIONS have been answered. After the thoracentesis is completed the fluid will be sent for lab workup. The patient will be able to start back on her Coumadin tonight. The patient should continue with Lovenox until her INR is more than 1.8. Patient continues to have shortness of breath with exertion. 05/06/17- patient did undergo a thoracentesis yesterday. 1.6 L of clear yellow pleural fluid was removed. It was discovered on the post x-ray at the patient did have a 20% pneumothorax. The patient was asymptomatic at that time. The patient was to be watched closely overnight and have a repeat chest x-ray that evening which was stable and another one this morning which dates show a possible slight increase in the pneumothorax. CT of the chest without contrast was obtained and results are not readily available. We will consult cardiothoracic to follow the patient and interventional radiology to place a pigtail catheter. Upon examination the patient is resting up in bed and despite the pneumothorax the patient states her breathing is better today after having the fluid removed. Patient is still requiring 4-5 L of supplemental oxygen however she said her shortness of breath has decreased. Patient is afebrile no further complaints. 05/07/17 and 05/08/17, please refer to DR. JULIO Gao note, as he covered these days. 05/09/17-upon examination today the patient's resting up in bed on 5 L of supplemental oxygen. Chest x-rays have been reviewed and the patient still has a pneumothorax that has not improved, pneumothorax remains about 30%. Therefore the patient will ultimately require a chest tube placement by interventional radiology. Patient continues to feel short of breath and tight. Today she states she feels slightly worse than yesterday in regards to her breathing. We'll recheck her CBC CMP and PT/INR. Patient has had her Coumadin on hold since pneumothorax and she has been receiving Lovenox. 05/10/17- on examination today the patient has just came back from interventional radiology after pigtail chest tube insertion. There is approximately 300 ML's of serosanguineous drainage noted upon arrival and the pleural VAC has not been attached to suction yet at this time. Patient will be hooked up to wall suction. Patient states that this initially received the chest tube she had immediate relief in her shortness of breath which decreased significantly. Patient states she is breathing much better post procedure. Patient is noted to be sitting up in bed and continues on 5 L of supplemental oxygen. Labs and radiology reports have been reviewed. 05/11/17- upon examination today the patient is resting up in bed and states she feels better today. Patient continues on 5 L of supplemental oxygen. Patient still has her chest tube in and has had approximately 700 ML's of serosanguineous output total since it was inserted. Her appetite has improved slightly as well. Patient states she is much more comfortable today. She continues on IV Solu-Medrol, updrafts and antibiotics. 05/12/17- today the patient is seen resting in bed on 4-5 L of oxygen. The patient states that she continues to have a productive cough with congestion. She is breathing easier with less effort. Appetite continues to improve. Her chest tube shows an output of approximately 875 ML's total output. Continues to be hooked up to suction. States her appetite continues to wax and wane. Chest x-ray from today has been reviewed patient's hydropneumothorax has been improved and remains about 15%. 05/13/17-today the patient seen resting up in bed on 4-5 L of supplemental oxygen via nasal cannula. She continues to have a productive cough with congestion however she states this is slightly improved today. She continues to breathe easier with less effort. Currently she is eating. Her chest tube shows approximately a total of 1100 ML's of serosanguineous drainage. Coumadin is still currently on hold and she is utilizing Lovenox. Chest x-ray is pending. No further complaints no overnight events. She is utilizing her incentive spirometer and pulls volumes of 1750. We will decrease her steroids today. 05/14/17, patient seen and evaluated examined today she is complaining of some shortness of breath and congestion however not producing much sputum her chest x -ray from today has been reviewed very small residual pneumothorax and small effusions seen she has put out another 350 mL in the last 48 hours the pleural VAC in control is adequate chest tube is connected with the 20 cm water of section is doing IS regularly on 4-5 L oxygen with stable oxygenation 05/15/17, patient seen and evaluated examined care plan discussed with the nurse at length critical care time spent 35 minutes chest x-ray from today reviewed the laboratory data reviewed as well care plan discussed with the primary service, patient is complaining of some weakness and tiredness has been congested as well and slightly more short of breath however her chest x-ray looks much improved she had put out more than 300 mL and pleural VAC December chest x-ray from today reveal almost resolution of pneumothorax some reexpansion pulmonary edema in the right lower lobe versus right lower lobe pneumonia cannot be excluded she does have cough but no sputum is coming out she remains on 4 L oxygen, she is being planned for replacement of calcium transfusion of 2 unit packed RBC replacement of potassium and placement of new peripheral IVs antibiotics in the form of IV Zosyn is being started 05/16/17- upon examination today the patient is seen resting up in bed on 5 L of supplemental oxygen. Chest x-ray has been reviewed and does show improvement in the pneumothorax with some reexpansion pulmonary edema in the right lower lobe versus right lower lobe pneumonia cannot be excluded. Patient's electrolytes known to be off therefore nephrology will be consult it. Patient is also being seen by infectious disease and cardiology. Patient's pleural low back continues to be patent and draining serosanguineous fluids. The pleural VAC chamber was changed today at 6 AM. The patient is noted that have 70 ML out between 6 AM and 9 AM. Patient's hemoglobin is stable today at 8.6. No further signs of bleeding. Patient is using her incentive spirometer and pulling volumes of approximately thousand ML. 05/17/17 upon examination the patient is resting up in bed on [address] of [address] oxygen[address] Hinds did remove the chest tube without complication. Chest x-ray has been obtained postprocedure and shows no complication post chest tube removal, no pneumothorax. Patient has been hemodynamically stable. She is resting more comfortably. Hemoglobin remained stable at 8.6. She denies any pain or discomfort at this time. She continues to be followed by nephrology as well as infectious disease. 05/18/17 upon examination today the patient's resting up in bed on 5 L of supplemental oxygen. Chest tube insertion site noted to have small amount of serosanguineous drainage on the dressing. Chest x-ray has been reviewed and is stable. Labs reviewed. Hemoglobin today is 8.5. Patient had no overnight events no further complaints. 05/19/17- patient is seen and examined today on rounds. Patient continues on 5 L of supplemental oxygen. Chest tube site clean and dry and intact no drainage noted. Patient continues to complain of some congestion however Mucinex is helping. Labs have been reviewed, hemoglobin 7.8 today. Coumadin was restarted yesterday, INR is 1.1. We can discontinue the Lovenox once INR is greater than 2. No overnight events. Objective - Vital Signs Vital signs: Vital Signs Temp 97.7 F 05/19/17 07:50 Pulse 96 05/19/17 11:25 Resp 18 05/19/17 07:50 BP 106/50 05/19/17 07:50 Pulse Ox 100 05/19/17 07:50 Intake & Output 05/18/17 05/19/17 05/19/17 18:59 06:59 18:59 Output Total 2900 1400 700 Balance -2900 -1400 -700 Weight 50 kg 48 kg 48 kg Output: Urine 2900 1400 700 Other: Voiding Method Indwelling Catheter Indwelling Catheter Indwelling Catheter # Voids 3 # Bowel Movements 1 - Exam GENERAL EXAM: Alert, cachectic, comfortable in no apparent distress. HEAD: Normocephalic. EYES: Normal reaction of pupils, equal size. NOSE: Clear with pink turbinates. THROAT: No erythema or exudates. NECK: No masses, no JVD. CHEST: No chest wall deformity. LUNGS: Poor air entry is present, scattered rhonchi as well as expiratory wheezes noted throughout. Right-sided pigtail chest tube has been removed dressing is in place. CVS: S1 and S2 normal with no audible mumurs, regular rhythm. ABDOMEN: No hepatosplenomegaly, normal bowel sounds, no guarding or rigidity. EXTREMITIES: Trace edema noted, pedal pulses palpable. SKIN: No rashes, dressing in place to coccyx wound CENTRAL NERVOUS SYSTEM: No focal deficits, tone is normal in all 4 extremities. - Labs CBC & Chem 7: 05/19/17 07:37 05/19/17 07:37 Labs: Abnormal Lab Results - Last 24 Hours (Table) 05/18/17 05/18/17 05/18/17 Range/Units 14:20 17:17 20:10 WBC (3.8-10.6) k/uL RBC (3.80-5.40) m/uL Hgb (11.4-16.0) gm/dL Hct (34.0-46.0) % MCV (80.0-100.0) fL MCH (25.0-35.0) pg MCHC (31.0-37.0) g/dL RDW (11.5-15.5) % Plt Count (150-450) k/uL Neutrophils # (1.3-7.7) k/uL Sodium (137-145) mmol/L Chloride (98-107) mmol/L Carbon Dioxide (22-30) mmol/L BUN (7-17) mg/dL Glucose (74-99) mg/dL POC Glucose (mg/dL) 168 H 117 H (75-99) mg/dL Iron (37-170) ug/dL % Saturation (20-50) % Total Protein (6.3-8.2) g/dL Albumin (3.5-5.0) g/dL Stool Occult Blood Positive H (Negative) 05/19/17 05/19/17 05/19/17 Range/Units 07:37 07:37 07:37 WBC 17.0 H (3.8-10.6) k/uL RBC 3.58 L (3.80-5.40) m/uL Hgb 7.8 L (11.4-16.0) gm/dL Hct 26.0 L (34.0-46.0) % MCV 72.6 L (80.0-100.0) fL MCH 21.9 L (25.0-35.0) pg MCHC 30.2 L (31.0-37.0) g/dL RDW 21.1 H (11.5-15.5) % Plt Count 140 L (150-450) k/uL Neutrophils # 13.1 H (1.3-7.7) k/uL Sodium 135 L (137-145) mmol/L Chloride 91 L (98-107) mmol/L Carbon Dioxide 39 H (22-30) mmol/L BUN 42 H (7-17) mg/dL Glucose 67 L (74-99) mg/dL POC Glucose (mg/dL) (75-99) mg/dL Iron 33 L (37-170) ug/dL % Saturation 10.4 L (20-50) % Total Protein 5.2 L (6.3-8.2) g/dL Albumin 3.1 L (3.5-5.0) g/dL Stool Occult Blood (Negative) 05/19/17 Range/Units 11:47 WBC (3.8-10.6) k/uL RBC (3.80-5.40) m/uL Hgb (11.4-16.0) gm/dL Hct (34.0-46.0) % MCV (80.0-100.0) fL MCH (25.0-35.0) pg MCHC (31.0-37.0) g/dL RDW (11.5-15.5) % Plt Count (150-450) k/uL Neutrophils # (1.3-7.7) k/uL Sodium (137-145) mmol/L Chloride (98-107) mmol/L Carbon Dioxide (22-30) mmol/L BUN (7-17) mg/dL Glucose (74-99) mg/dL POC Glucose (mg/dL) 324 H (75-99) mg/dL Iron (37-170) ug/dL % Saturation (20-50) % Total Protein (6.3-8.2) g/dL Albumin (3.5-5.0) g/dL Stool Occult Blood (Negative) Assessment and Plan Plan: Assessment Right-sided pneumothorax Right-sided pleural effusion with right sided pneumonia suspect mixed/gram- negative in nature Acute exacerbation of chronic obstructive pulmonary disease Acute on chronic hypoxic respiratory failure Congestive heart failure Probable pulmonary hypertension Atrial fibrillation Chronic anemia Severe protein calorie malnutrition Hypocalcemia Plan Medications have been reviewed and will be continued as ordered. Continue with IV antibiotics. Repeat labs tomorrow. Chest x-ray tomorrow. May restart Coumadin, d/c lovenox when INR is greater than 2. Pleural fluid has been sent for lab workup. Continue with Solu-Medrol and budesonide as well as Mucinex. Repeat labs in the morning. Cardiology on consult. Infectious disease on consult. Nephrology on consult. Continue with pulmonary hygiene, coughing and deep breathing exercises, and supportive care. Supplemental oxygen to maintain oxygen saturations of 92% or better. Continue nebulizer treatments. GI and DVT prophylaxis. Ensure 3 times a day with meals. We will continue to monitor labs/results and adjust treatment as necessary. Further recommendations pending. I performed an examination of the patient and discussed their management with the nurse practitioner. I have reviewed the nurse practitioner's note and agree with the documented findings and plan of care.
[2017-05-19] MEDS ORDERED: INSULIN LISPRO (humaLOG) 300 UNIT/3 ML VIAL SQ ONE (12:51)
[2017-05-19 16:59] LABS: Glucose,Whole Blood 114 mg/dL (75-99)
[2017-05-19] MEDS: WARFARIN 2 MG TAB PO SCH (17:36)
[2017-05-19 20:13] LABS: Glucose,Whole Blood 216 mg/dL (75-99)
[2017-05-19] MEDS: MONTELUKAST 10 MG TAB PO SCH (20:59)
[2017-05-19] MEDS: ALPRAZolam 0.5 MG TAB PO PRN ×2 (20:59→23:24)
[2017-05-19] MEDS: traZODone HCL 50 MG TAB PO SCH (20:59)
[2017-05-19] MEDS: ATORVASTATIN 40 MG TAB PO SCH (21:00)
--- NOTE | 2017-05-19 23:36 | PN ---
DATE OF SERVICE: 05/19/2017 This 57-year-old white female was admitted with severe shortness of breath and general weakness. She was found to have pneumonia. She is also known to have multiple other medical problems. She has chronic atrial fibrillation, chronic congestive heart failure, chronic obstructive pulmonary disease, diabetes mellitus and chronic anemia. She also was found to have pleural effusion. She was admitted to the hospital for further evaluation and treatment. The patient was started on IV antibiotics and updraft treatments, IV Solu-Medrol. Patient was seen and followed by Dr. Segun Hinds. Patient was also seen by [facility] in consultation. Patient has had severe anemia and has received a blood transfusion. Dr. Hinds did a thoracentesis and removed more than a liter of fluid. She also developed some pneumothorax and a chest tube was inserted. It was taken out 2 days ago. Patient's overall prognosis is guarded. She is still receiving IV antibiotics for pneumonia. Overall prognosis is guarded. The diagnosis, prognosis and therapeutic plans were discussed in detail with the patient today. As I am going to be out of town on vacation, Dr. Cain is going to cover me and see the patient for me and follow her during my absence. [facility]
[2017-05-20] MEDS: PIPERACILLIN-TAZOBACTAM 3.375 GM in DEXTROSE/WATER 1 50ML.BAG IVPB SCH ×4 (00:02→23:51)
[2017-05-20] MEDS: traZODone HCL 50 MG TAB PO SCH ×2 (00:03→22:01)
[2017-05-20] MEDS: HYDROmorphone 1 MG/ML 1 ML SYRINGE IVP PRN ×3 (02:49→18:04)
[2017-05-20] MEDS: HYDROcodone/APAP 10-325MG 1 EACH TAB PO PRN ×3 (03:48→19:56)
[2017-05-20] MEDS: ALPRAZolam 0.25 MG TAB PO PRN (03:49)
[2017-05-20 07:02] LABS: Glucose,Whole Blood 127 mg/dL (75-99)
[2017-05-20] MEDS: BUDESONIDE 0.5 MG/2 ML NEBU INHALATION SCH ×2 (07:32→19:10)
[2017-05-20] MEDS: IPRATROPIUM-ALBUTEROL 3 ML NEB INHALATION SCH ×4 (07:32→19:10)
--- NOTE | 2017-05-20 07:56 | XR ---
EXAMINATION TYPE: XR chest 2V DATE OF EXAM: 05/20/2017 HISTORY: shortness of breath. REFERENCE: Previous study dated 05/18/2017. FINDINGS: The heart is mildly enlarged. There are calcified granulomas at the left lung base. There i s worsening right basilar airspace disease. I suspect small effusions, greater on the right than the left. Lung volumes are prominent. IMPRESSION: 1. COPD. 2. EVIDENCE OF OLD GRANULOMATOUS DISEASE. 3. CARDIOMEGALY. 4. WORSENING RIGHT BASILAR AIRSPACE DISEASE AND A WORSENING RIGHT-SIDED EFFUSION.
--- NOTE | 2017-05-20 08:17 | P.PN ---
Subjective Patient is seen in follow-up for hypocalcemia. Her calcium level did drop down to 6.4, however the corrected calcium was near 8. She did receive 2 g of IV calcium and it was up to 8.7 as of yesterday. She is currently sitting up in bed. Denies chest pain or shortness of breath. Admits to good urine output. No vomiting or diarrhea. Vital signs are stable. General: The patient appeared well nourished and normally developed. HEENT: Head exam is unremarkable. Neck is without jugular venous distension. LUNGS: Lungs are clear to auscultation and percussion. Breath sounds decreased. HEART: Rate and Rhythm are regular. First and second heart sounds normal. No murmurs, rubs or gallops. ABDOMEN: Abdominal exam reveals normal bowel sounds. Non-tender and non- distended. No evidence of peritonitis. EXTREMITITES: No clubbing, cyanosis, or edema. Objective - Vital Signs Vital signs: Vital Signs Temp 97.7 F 05/20/17 07:00 Pulse 76 05/20/17 07:43 Resp 16 05/20/17 07:05 BP 109/59 05/20/17 07:00 Pulse Ox 100 05/20/17 07:34 Intake & Output 05/19/17 05/20/17 05/20/17 18:59 06:59 18:59 Intake Total 1870 1380 Output Total 1400 3000 Balance 470 -1620 Weight 48 kg Intake: IV 210 0.9 160 Piperacillin-Tazobactam 3 50 .375 gm In Dextrose/Water 1 50ml.bag @ 12.5 mls/hr IVPB Q8HR [facility] Rx#: [id number] Oral 1660 1380 Output: Urine 1400 3000 Uretheral ([place]) 3000 Other: Voiding Method Indwelling Catheter Indwelling Catheter Indwelling Catheter # Voids 0 0 # Bowel Movements 1 - Labs CBC & Chem 7: 05/19/17 07:37 05/19/17 07:37 Labs: Abnormal Lab Results - Last 24 Hours (Table) 05/19/17 05/19/17 05/19/17 Range/Units 07:37 07:37 11:47 Sodium 135 L (137-145) mmol/L Chloride 91 L (98-107) mmol/L Carbon Dioxide 39 H (22-30) mmol/L BUN 42 H (7-17) mg/dL Glucose 67 L (74-99) mg/dL POC Glucose (mg/dL) 324 H (75-99) mg/dL Iron 33 L (37-170) ug/dL % Saturation 10.4 L (20-50) % Total Protein 5.2 L (6.3-8.2) g/dL Albumin 3.1 L (3.5-5.0) g/dL 05/19/17 05/19/17 05/20/17 Range/Units 16:58 20:10 06:50 Sodium (137-145) mmol/L Chloride (98-107) mmol/L Carbon Dioxide (22-30) mmol/L BUN (7-17) mg/dL Glucose (74-99) mg/dL POC Glucose (mg/dL) 114 H 216 H 127 H (75-99) mg/dL Iron (37-170) ug/dL % Saturation (20-50) % Total Protein (6.3-8.2) g/dL Albumin (3.5-5.0) g/dL Assessment and Plan Plan: Assessment: #1. Hypocalcemia. Calcium level was 6.4 and May 15 with an albumin level of 2.1. Her corrected calcium was near 8.0. She did receive IV calcium gluconate 2 g on May 15 and calcium level as of yesterday was 8.7 and albumin level is 3.1. She is also maintained on Loop diuretics which can lead to urinary calcium wasting. Additionally she received blood transfusion on May 15 which can lead to hypocalcemia due to chelation from citrate. PTH was appropriately elevated. Vitamin D level noted to be low. Magnesium replete. 1,25-D3 level normal. #2. Right-sided pleural effusion status post thoracentesis and chest tube placement, maintained on Lasix 40 mg twice daily. #3. Acute anemia status post packed red blood cell transfusion. Hemoglobin 7.8 as of yesterday. Iron deficiency noted. #4. Pneumonia. Sputum culture positive for Corynebacterium. Plan: Continue Drisdol 50,000 units weekly. Further set 125 mg IV daily for 3 days. First dose today. Repeat electrolytes in the morning.
[2017-05-20 08:31] LABS: Anisocytosis Moderate; Basophils % (A) 0 %; CH 21.4; CHCM 29.7; Eosinophils # (A) 0.2 k/uL (0-0.7); Eosinophils % (A) 1 %; HCT 25.7 % (34.0-46.0); HDW 3.52; HGB 7.6 gm/dL (11.4-16.0); Hypochromasia Marked; Luc # (Auto) 0.24; Luc % (Auto) 2; Lymphocytes # (A) 2.8 k/uL (1.0-4.8); Lymphocytes % (A) 17 %; MCH 21.2 pg (25.0-35.0); MCHC 29.4 g/dL (31.0-37.0); MCV 72.2 fL (80.0-100.0); Mean Platelet Volume 6.9; Microcytosis Marked; Monocytes % (A) 6 %; Neutrophils # (A) 12.2 k/uL (1.3-7.7); Neutrophils % (A) 74 %; Poikilocytosis Slight; Prothrombin Time 10.4 sec (9.0-12.0); RBC 3.56 m/uL (3.80-5.40); RDW 20.4 % (11.5-15.5); WBC 16.5 k/uL (3.8-10.6); WBC (Perox) 16.96
[2017-05-20 08:35] LABS: Reticulocyte % 5.3 % (0.5-2.0)
[2017-05-20 08:43] LABS: ALT 38 U/L (9-52); AST 20 U/L (14-36); Alkaline Phosphatase 68 U/L (38-126); Blood Urea Nitrogen 45 mg/dL (7-17); Calcium 8.4 mg/dL (8.4-10.2); Chloride 90 mmol/L (98-107); Glucose 75 mg/dL (74-99); Magnesium 2.2 mg/dL (1.6-2.3); Non-African American GFR(MDRD) >60 (>60 ml/min/1.73 sqM); Sodium 136 mmol/L (137-145); Total Bilirubin 0.7 mg/dL (0.2-1.3); Total Protein 5.1 g/dL (6.3-8.2)
[2017-05-20] MEDS: INSULIN LISPRO (humaLOG) 300 UNIT/3 ML VIAL SQ SCH ×4 (08:46→22:02)
[2017-05-20] MEDS: DIGOXIN 125 MCG TAB PO SCH (08:50)
[2017-05-20] MEDS: methylPREDNISolone SOD SUCCI 40 MG/ML 1 ML VIAL IV SCH (08:51)
[2017-05-20] MEDS: FUROSEMIDE 40 MG TAB PO SCH ×2 (08:51→22:01)
[2017-05-20] MEDS: ENOXAPARIN 40 MG/0.4 ML SYRINGE SQ SCH ×2 (08:51→22:01)
[2017-05-20] MEDS: DOCUSATE 100 MG CAP PO SCH (08:51)
[2017-05-20] MEDS: guaiFENesin 600 MG TABLET.ER PO SCH ×2 (08:51→22:00)
[2017-05-20] MEDS: POTASSIUM CHLORIDE ER 10 MEQ TAB.ER.PRT PO SCH (08:52)
[2017-05-20 08:58] LABS: Anion Gap 5 mmol/L
[2017-05-20 08:59] LABS: Carbon Dioxide 41 mmol/L (22-30)
[2017-05-20 11:22] LABS: Glucose,Whole Blood 175 mg/dL (75-99)
[2017-05-20] MEDS: acetaZOLAMIDE 250 MG TAB PO SCH ×2 (12:08→22:01)
[2017-05-20] MEDS: FERROUS SULFATE 325 MG TAB PO SCH (12:09)
[2017-05-20] MEDS: SODIUM FERRIC GLUCONAT-SUCROSE 125 MG in SODIUM CHLORIDE 0.9% 100 ML IVPB SCH (12:17)
--- NOTE | 2017-05-20 14:04 | P.PN ---
Subjective 05/02/17 This is a 57-year-old female patient being seen, examined and evaluated. Patient is well-known to our services. This Patient comes in with complaints of shortness of breath that had been increasing over the last few days. The patient does have a significant medical history for CHF, COPD that is severe, chronic persistent asthma but severe, atrial fibrillation, renal insufficiency and liver disease. This patient has a known history for reoccurring pneumonia as well. Patient states she uses 4-5 L of supplemental oxygen at home at all times. Upon examination the patient's resting up in bed on 5 L of supplemental oxygen, she states she has shortness of breath with any minimal exertion as well as extensive conversation. Chest x-ray has been reviewed and shows an increasing right pleural effusion which is associated with atelectasis, possible pulmonary artery hypertension, and congestive heart failure. 05/03/17 upon examination today the patient's resting up in bed and continues to be on 5 L of supplemental oxygen. Patient continues to have shortness of breath with any minimal exertion and extensive conversation. Patient did undergo an ultrasound of the chest yesterday which revealed a right pleural effusion fluid pocket of 10.4 cm this has increased significantly since her last ultrasound of the chest which was done 02/08/2017 which showed a right pleural effusion pocket of 4.2 at that time. During that admission in January the effusion was too small to undergo a thoracentesis. Of note ,since its progression, the patient is a candidate to have the thoracentesis performed in regards to size. However the patient was on Coumadin for chronic A. fib and her INR yesterday was 2.9. Yesterday we discontinued the Coumadin and put the patient on Lovenox in preparation for thoracentesis. A repeat INR was performed today and is currently 3.6. We would like the patient's INR to be closer to 1.4 before we perform the thoracentesis. Repeat labs will be drawn tomorrow. 05/04/17 examination today the patient's resting up in bed and continues on 5 L of supplemental oxygen. Patient states she is a little less short of breath today than previously. However she still continues to have shortness of breath with exertion. Patient's INR today was 3.7, which is still too high to undergo a thoracentesis. Labs have been reviewed. We truly the increase in INR due to the patient being on Levaquin as a side effect. 05/05/17- upon examination today the patient is resting up in bed and continues on the 5 L of supplemental oxygen. The patient's INR today is 1.3 therefore we can go forth with the thoracentesis. The procedure as well as the risk and benefits have been discussed at length with the patient QUESTIONS have been answered. After the thoracentesis is completed the fluid will be sent for lab workup. The patient will be able to start back on her Coumadin tonight. The patient should continue with Lovenox until her INR is more than 1.8. Patient continues to have shortness of breath with exertion. 05/06/17- patient did undergo a thoracentesis yesterday. 1.6 L of clear yellow pleural fluid was removed. It was discovered on the post x-ray at the patient did have a 20% pneumothorax. The patient was asymptomatic at that time. The patient was to be watched closely overnight and have a repeat chest x-ray that evening which was stable and another one this morning which dates show a possible slight increase in the pneumothorax. CT of the chest without contrast was obtained and results are not readily available. We will consult cardiothoracic to follow the patient and interventional radiology to place a pigtail catheter. Upon examination the patient is resting up in bed and despite the pneumothorax the patient states her breathing is better today after having the fluid removed. Patient is still requiring 4-5 L of supplemental oxygen however she said her shortness of breath has decreased. Patient is afebrile no further complaints. 05/07/17 and 05/08/17, please refer to DR. JULIO Gao note, as he covered these days. 05/09/17-upon examination today the patient's resting up in bed on 5 L of supplemental oxygen. Chest x-rays have been reviewed and the patient still has a pneumothorax that has not improved, pneumothorax remains about 30%. Therefore the patient will ultimately require a chest tube placement by interventional radiology. Patient continues to feel short of breath and tight. Today she states she feels slightly worse than yesterday in regards to her breathing. We'll recheck her CBC CMP and PT/INR. Patient has had her Coumadin on hold since pneumothorax and she has been receiving Lovenox. 05/10/17- on examination today the patient has just came back from interventional radiology after pigtail chest tube insertion. There is approximately 300 ML's of serosanguineous drainage noted upon arrival and the pleural VAC has not been attached to suction yet at this time. Patient will be hooked up to wall suction. Patient states that this initially received the chest tube she had immediate relief in her shortness of breath which decreased significantly. Patient states she is breathing much better post procedure. Patient is noted to be sitting up in bed and continues on 5 L of supplemental oxygen. Labs and radiology reports have been reviewed. 05/11/17- upon examination today the patient is resting up in bed and states she feels better today. Patient continues on 5 L of supplemental oxygen. Patient still has her chest tube in and has had approximately 700 ML's of serosanguineous output total since it was inserted. Her appetite has improved slightly as well. Patient states she is much more comfortable today. She continues on IV Solu-Medrol, updrafts and antibiotics. 05/12/17- today the patient is seen resting in bed on 4-5 L of oxygen. The patient states that she continues to have a productive cough with congestion. She is breathing easier with less effort. Appetite continues to improve. Her chest tube shows an output of approximately 875 ML's total output. Continues to be hooked up to suction. States her appetite continues to wax and wane. Chest x-ray from today has been reviewed patient's hydropneumothorax has been improved and remains about 15%. 05/13/17-today the patient seen resting up in bed on 4-5 L of supplemental oxygen via nasal cannula. She continues to have a productive cough with congestion however she states this is slightly improved today. She continues to breathe easier with less effort. Currently she is eating. Her chest tube shows approximately a total of 1100 ML's of serosanguineous drainage. Coumadin is still currently on hold and she is utilizing Lovenox. Chest x-ray is pending. No further complaints no overnight events. She is utilizing her incentive spirometer and pulls volumes of 1750. We will decrease her steroids today. 05/14/17, patient seen and evaluated examined today she is complaining of some shortness of breath and congestion however not producing much sputum her chest x -ray from today has been reviewed very small residual pneumothorax and small effusions seen she has put out another 350 mL in the last 48 hours the pleural VAC in control is adequate chest tube is connected with the 20 cm water of section is doing IS regularly on 4-5 L oxygen with stable oxygenation 05/15/17, patient seen and evaluated examined care plan discussed with the nurse at length critical care time spent 35 minutes chest x-ray from today reviewed the laboratory data reviewed as well care plan discussed with the primary service, patient is complaining of some weakness and tiredness has been congested as well and slightly more short of breath however her chest x-ray looks much improved she had put out more than 300 mL and pleural VAC December chest x-ray from today reveal almost resolution of pneumothorax some reexpansion pulmonary edema in the right lower lobe versus right lower lobe pneumonia cannot be excluded she does have cough but no sputum is coming out she remains on 4 L oxygen, she is being planned for replacement of calcium transfusion of 2 unit packed RBC replacement of potassium and placement of new peripheral IVs antibiotics in the form of IV Zosyn is being started 05/16/17- upon examination today the patient is seen resting up in bed on 5 L of supplemental oxygen. Chest x-ray has been reviewed and does show improvement in the pneumothorax with some reexpansion pulmonary edema in the right lower lobe versus right lower lobe pneumonia cannot be excluded. Patient's electrolytes known to be off therefore nephrology will be consult it. Patient is also being seen by infectious disease and cardiology. Patient's pleural low back continues to be patent and draining serosanguineous fluids. The pleural VAC chamber was changed today at 6 AM. The patient is noted that have 70 ML out between 6 AM and 9 AM. Patient's hemoglobin is stable today at 8.6. No further signs of bleeding. Patient is using her incentive spirometer and pulling volumes of approximately thousand ML. 05/17/17 upon examination the patient is resting up in bed on [address] of [address] oxygen[address] Hinds did remove the chest tube without complication. Chest x-ray has been obtained postprocedure and shows no complication post chest tube removal, no pneumothorax. Patient has been hemodynamically stable. She is resting more comfortably. Hemoglobin remained stable at 8.6. She denies any pain or discomfort at this time. She continues to be followed by nephrology as well as infectious disease. 05/18/17 upon examination today the patient's resting up in bed on 5 L of supplemental oxygen. Chest tube insertion site noted to have small amount of serosanguineous drainage on the dressing. Chest x-ray has been reviewed and is stable. Labs reviewed. Hemoglobin today is 8.5. Patient had no overnight events no further complaints. 05/19/17- patient is seen and examined today on rounds. Patient continues on 5 L of supplemental oxygen. Chest tube site clean and dry and intact no drainage noted. Patient continues to complain of some congestion however Mucinex is helping. Labs have been reviewed, hemoglobin 7.8 today. Coumadin was restarted yesterday, INR is 1.1. We can discontinue the Lovenox once INR is greater than 2. No overnight events. 05/20/17- patient is being seen in examined and evaluated on rounds today. She continues on supplemental oxygen of 5 L via nasal cannula. Continues with shortness of breath with exertion. Congestion slightly improving. Hemoglobin today is 7.6 CO2 was noted to be 41. Chest x-ray and labs were reviewed. Patient does have a pleural effusion however we will try to medically manage it at this time we do not want to go forth with a thoracentesis at this point. Follow she is on consult and has adjusted medications due to alkalosis related to diuretic induced volume contraction. Patient was placed on Diamox 250 mg twice a day. Electrolytes monitored and being replaced per protocol. Objective - Vital Signs Vital signs: Vital Signs Temp 98.2 F 05/20/17 13:42 Pulse 72 05/20/17 13:42 Resp 16 05/20/17 13:42 BP 110/62 05/20/17 13:42 Pulse Ox 100 05/20/17 13:42 Intake & Output 05/19/17 05/20/17 05/20/17 18:59 06:59 18:59 Intake Total 1870 1380 Output Total 1400 3000 Balance 470 -1620 Weight 48 kg Intake: IV 210 0.9 160 Piperacillin-Tazobactam 3 50 .375 gm In Dextrose/Water 1 50ml.bag @ 12.5 mls/hr IVPB Q8HR MARY CARMEN Rx#: [id number] Oral 1660 1380 Output: Urine 1400 3000 Uretheral ([place]) 3000 Other: Voiding Method Indwelling Catheter Indwelling Catheter Indwelling Catheter # Voids 0 0 # Bowel Movements 1 - Exam GENERAL EXAM: Alert, cachectic, comfortable in no apparent distress. HEAD: Normocephalic. EYES: Normal reaction of pupils, equal size. NOSE: Clear with pink turbinates. THROAT: No erythema or exudates. NECK: No masses, no JVD. CHEST: No chest wall deformity. LUNGS: Poor air entry is present, scattered rhonchi as well as expiratory wheezes noted throughout. Right-sided pigtail chest tube has been removed dressing is in place. CVS: S1 and S2 normal with no audible mumurs, regular rhythm. ABDOMEN: No hepatosplenomegaly, normal bowel sounds, no guarding or rigidity. EXTREMITIES: Trace edema noted, pedal pulses palpable. SKIN: No rashes, dressing in place to coccyx wound CENTRAL NERVOUS SYSTEM: No focal deficits, tone is normal in all 4 extremities. - Labs CBC & Chem 7: 05/20/17 07:38 05/20/17 07:38 Labs: Abnormal Lab Results - Last 24 Hours (Table) 05/19/17 05/19/17 05/20/17 Range/Units 16:58 20:10 06:50 WBC (3.8-10.6) k/uL RBC (3.80-5.40) m/uL Hgb (11.4-16.0) gm/dL Hct (34.0-46.0) % MCV (80.0-100.0) fL MCH (25.0-35.0) pg MCHC (31.0-37.0) g/dL RDW (11.5-15.5) % Plt Count (150-450) k/uL Neutrophils # (1.3-7.7) k/uL Retic Count (0.5-2.0) % Sodium (137-145) mmol/L Chloride (98-107) mmol/L Carbon Dioxide (22-30) mmol/L BUN (7-17) mg/dL POC Glucose (mg/dL) 114 H 216 H 127 H (75-99) mg/dL Total Protein (6.3-8.2) g/dL Albumin (3.5-5.0) g/dL 05/20/17 05/20/17 05/20/17 Range/Units 07:38 07:38 07:38 WBC 16.5 H (3.8-10.6) k/uL RBC 3.56 L (3.80-5.40) m/uL Hgb 7.6 L (11.4-16.0) gm/dL Hct 25.7 L (34.0-46.0) % MCV 72.2 L (80.0-100.0) fL MCH 21.2 L (25.0-35.0) pg MCHC 29.4 L (31.0-37.0) g/dL RDW 20.4 H (11.5-15.5) % Plt Count 123 L (150-450) k/uL Neutrophils # 12.2 H (1.3-7.7) k/uL Retic Count 5.3 H (0.5-2.0) % Sodium 136 L (137-145) mmol/L Chloride 90 L (98-107) mmol/L Carbon Dioxide 41 H* (22-30) mmol/L BUN 45 H (7-17) mg/dL POC Glucose (mg/dL) (75-99) mg/dL Total Protein 5.1 L (6.3-8.2) g/dL Albumin 3.0 L (3.5-5.0) g/dL 05/20/ Range/Units 11:19 WBC (3.8-10.6) k/uL RBC (3.80-5.40) m/uL Hgb (11.4-16.0) gm/dL Hct (34.0-46.0) % MCV (80.0-100.0) fL MCH (25.0-35.0) pg MCHC (31.0-37.0) g/dL RDW (11.5-15.5) % Plt Count (150-450) k/uL Neutrophils # (1.3-7.7) k/uL Retic Count (0.5-2.0) % Sodium (137-145) mmol/L Chloride (98-107) mmol/L Carbon Dioxide (22-30) mmol/L BUN (7-17) mg/dL POC Glucose (mg/dL) 175 H (75-99) mg/dL Total Protein (6.3-8.2) g/dL Albumin (3.5-5.0) g/dL Assessment and Plan Plan: Assessment Right-sided pneumothorax Right-sided pleural effusion with right sided pneumonia suspect mixed/gram- negative in nature Acute exacerbation of chronic obstructive pulmonary disease Acute on chronic hypoxic respiratory failure Congestive heart failure Probable pulmonary hypertension Atrial fibrillation Chronic anemia Severe protein calorie malnutrition Hypocalcemia Plan Medications have been reviewed and will be continued as ordered. Continue with IV antibiotics. May restart Coumadin, d/c lovenox when INR is greater than 2. Pleural fluid has been sent for lab workup is negative so far. Continue with Solu-Medrol and budesonide as well as Mucinex. Repeat labs in the morning. Cardiology on consult. Infectious disease on consult. Nephrology on consult. Continue with pulmonary hygiene, coughing and deep breathing exercises, and supportive care. Supplemental oxygen to maintain oxygen saturations of 92% or better. Continue nebulizer treatments. GI and DVT prophylaxis. Ensure 3 times a day with meals. We will continue to monitor labs/results and adjust treatment as necessary. Further recommendations pending. I performed an examination of the patient and discussed their management with the nurse practitioner. I have reviewed the nurse practitioner's note and agree with the documented findings and plan of care.
[2017-05-20 16:59] LABS: Glucose,Whole Blood 230 mg/dL (75-99)
--- NOTE | 2017-05-20 17:31 | P.PN ---
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 Became profoundly weak. Was also having increasing amounts of pain to the right lower side of her chest. Because the she presented to the emergency center. Telemetry was some steroids and respiratory treatments and this has helped her as well as pain medications. She has less short of breath at the moment and she wasn't admission. But still is quite miserable. She sitting upright sitting forward relates this gives her some relief of the discomfort she has in her right lower chest toward the back. She is still short of breath compared to her baseline. She has no hemoptysis but does have a mild cough at times. She is not having significant sputum Production. He is feeling slightly better since the thoracentesis. Had radiology place the pleural space evacuation which has been helpful. May come out tomorrow. she is discontent with pain medication, is instructed on importance of minimizing narcotic use with her pulmonary disease. Chest tube removed Her oxygen is been turned down before she relates she is much more short of breath. Pulse ox is applied and is at 100%. The patient relates that she still feels short of breath. Objective - Vital Signs Vital signs: Vital Signs Temp 98 F 05/20/17 15:00 Pulse 97 05/20/17 15:35 Resp 16 05/20/17 15:00 BP 123/76 05/20/17 15:00 Pulse Ox 100 05/20/17 15:25 Intake & Output 05/19/17 05/20/17 05/20/17 18:59 06:59 18:59 Intake Total 1870 1380 150 Output Total 1400 3000 Balance 470 -1620 150 Weight 48 kg Intake: IV 210 150 0.9 160 Piperacillin-Tazobactam 3 50 50 .375 gm In Dextrose/Water 1 50ml.bag @ 12.5 mls/hr IVPB Q8HR MARY CARMEN Rx#: [id number] Sodium Ferric Gluconat- 100 Sucrose 125 mg In Sodium Chloride 0.9% 100 ml @ 100 mls/hr IVPB DAILY MARY CARMEN Rx#:[id number] Oral 1660 1380 Output: Urine 1400 3000 Uretheral ([place]os) 3000 Other: Voiding Method Indwelling Catheter Indwelling Catheter Indwelling Catheter # Voids 0 0 # Bowel Movements 1 - Exam 57-year-old woman who looks much older than her stated age. She is chronically ill. HEENT: Anicteric conjunctiva are pink and moist nasal mucosa grossly intact without significant lesions, there is no thrush. Poor dentition Neck: The neck is supple without significant lymphadenopathy or thyromegaly. Lungs: Symmetrical air entry with wheezes scattered throughout the lung iqbal. Evidence of decreased breath sounds breath sounds to the right base. The extensive dullness and egophony to the right base has improved and chest tube is removed Heart: irregular no S3 loud S4 There is no significant murmur click or rub, PMI was nondisplaced. Abdomen: Positive bowel sounds soft and nontender without palpable masses or organomegaly. There was no guarding or rebound. Extremities: The extremities have just trace edema. She has no tenderness over the joints. Skin the patient has changes of diabetes her lower extremities however she has a difficulty with chronically picking at her skin and has innumerable lesions that healed over arms and legs at this time. None of them are open are grossly draining at this time is evidence of some erythema to the coccyx. With this the Aquacel silver dressing has been applied. It has the foam border. Neuro: She is awake alert oriented to person place and time and does not exhibit any acute gross focal sensory motor deficits - Labs CBC & Chem 7: 05/20/17 07:38 05/20/17 07:38 Labs: Abnormal Lab Results - Last 24 Hours (Table) 05/19/17 05/20/17 05/20/17 Range/Units 20:10 06:50 07:38 WBC 16.5 H (3.8-10.6) k/uL RBC 3.56 L (3.80-5.40) m/uL Hgb 7.6 L (11.4-16.0) gm/dL Hct 25.7 L (34.0-46.0) % MCV 72.2 L (80.0-100.0) fL MCH 21.2 L (25.0-35.0) pg MCHC 29.4 L (31.0-37.0) g/dL RDW 20.4 H (11.5-15.5) % Plt Count 123 L (150-450) k/uL Neutrophils # 12.2 H (1.3-7.7) k/uL Retic Count (0.5-2.0) % Sodium (137-145) mmol/L Chloride (98-107) mmol/L Carbon Dioxide (22-30) mmol/L BUN (7-17) mg/dL POC Glucose (mg/dL) 216 H 127 H (75-99) mg/dL Total Protein (6.3-8.2) g/dL Albumin (3.5-5.0) g/dL 05/20/17 05/20/17 05/20/17 Range/Units 07:38 07:38 11:19 WBC (3.8-10.6) k/uL RBC (3.80-5.40) m/uL Hgb (11.4-16.0) gm/dL Hct (34.0-46.0) % MCV (80.0-100.0) fL MCH (25.0-35.0) pg MCHC (31.0-37.0) g/dL RDW (11.5-15.5) % Plt Count (150-450) k/uL Neutrophils # (1.3-7.7) k/uL Retic Count 5.3 H (0.5-2.0) % Sodium 136 L (137-145) mmol/L Chloride 90 L (98-107) mmol/L Carbon Dioxide 41 H* (22-30) mmol/L BUN 45 H (7-17) mg/dL POC Glucose (mg/dL) 175 H (75-99) mg/dL Total Protein 5.1 L (6.3-8.2) g/dL Albumin 3.0 L (3.5-5.0) g/dL 05/20/17 Range/Units 16:58 WBC (3.8-10.6) k/uL RBC (3.80-5.40) m/uL Hgb (11.4-16.0) gm/dL Hct (34.0-46.0) % MCV (80.0-100.0) fL MCH (25.0-35.0) pg MCHC (31.0-37.0) g/dL RDW (11.5-15.5) % Plt Count (150-450) k/uL Neutrophils # (1.3-7.7) k/uL Retic Count (0.5-2.0) % Sodium (137-145) mmol/L Chloride (98-107) mmol/L Carbon Dioxide (22-30) mmol/L BUN (7-17) mg/dL POC Glucose (mg/dL) 230 H (75-99) mg/dL Total Protein (6.3-8.2) g/dL Albumin (3.5-5.0) g/dL Laboratory Results WBC 16.5 k/uL (3.8-10.6) H 05/20/17 07:38 RBC 3.56 m/uL (3.80-5.40) L 05/20/17 07:38 Hgb 7.6 gm/dL (11.4-16.0) L 05/20/17 07:38 Hct 25.7 % (34.0-46.0) L 05/20/17 07:38 MCV 72.2 fL (80.0-100.0) L 05/20/17 07:38 MCH 21.2 pg (25.0-35.0) L 05/20/17 07:38 MCHC 29.4 g/dL (31.0-37.0) L 05/20/17 07:38 RDW 20.4 % (11.5-15.5) H 05/20/17 07:38 Plt Count 123 k/uL (150-450) L 05/20/17 07:38 Neutrophils % 74 % 05/20/17 07:38 Lymphocytes % 17 % 05/20/17 07:38 Monocytes % 6 % 05/20/17 07:38 Eosinophils % 1 % 05/20/17 07:38 Basophils % 0 % 05/20/17 07:38 Neutrophils # 12.2 k/uL (1.3-7.7) H 05/20/17 07:38 Lymphocytes # 2.8 k/uL (1.0-4.8) 05/20/17 07:38 Monocytes # 1.0 k/uL (0-1.0) 05/20/17 07:38 Eosinophils # 0.2 k/uL (0-0.7) 05/20/17 07:38 Basophils # 0.0 k/uL (0-0.2) 05/20/17 07:38 Hypochromasia Marked 05/20/17 07:38 Poikilocytosis Slight 05/20/17 07:38 Anisocytosis Moderate 05/20/17 07:38 Microcytosis Marked 05/20/17 07:38 Retic Count 5.3 % (0.5-2.0) H 05/20/17 07:38 PT 10.4 sec (9.0-12.0) 05/20/17 07:38 INR 1.0 (<1.2) 05/20/17 07:38 APTT 39.4 sec (22.0-30.0) H 05/02/17 02:30 D-Dimer 0.60 mg/L FEU (<0.60) H 05/02/17 02:30 Sodium 136 mmol/L (137-145) L 05/20/17 07:38 Potassium 4.0 mmol/L (3.5-5.1) 05/20/17 07:38 Chloride 90 mmol/L (98-107) L 05/20/17 07:38 Carbon Dioxide 41 mmol/L (22-30) H* 05/20/17 07:38 Anion Gap 5 mmol/L 05/20/17 07:38 BUN 45 mg/dL (7-17) H 05/20/17 07:38 Creatinine 0.85 mg/dL (0.52-1.04) 05/20/17 07:38 Est GFR (MDRD) Af Amer >60 (>60 ml/min/1.73 sqM) 05/20/17 07:38 Est GFR (MDRD) Non-Af >60 (>60 ml/min/1.73 sqM) 05/20/17 07:38 Glucose 75 mg/dL (74-99) 05/20/17 07:38 POC Glucose (mg/dL) 230 mg/dL (75-99) H 05/20/17 16:58 POC Glu Infant Toddler Lead Teacher PAULETTE Alfonso Fanny 05/20/17 16:[address] Glu mg/dL 108 mg/dL 05/12/17 07:20 Hemoglobin A1c 5.4 % (4.2-6.1) 05/12/17 07:20 Calcium 8.4 mg/dL (8.4-10.2) 05/20/17 07:38 Ionized Calcium Sherine 4.2 mg/dL (4.5-5.3) L 05/16/17 10:31 Phosphorus 2.9 mg/dL (2.5-4.5) 05/17/17 08:08 Magnesium 2.2 mg/dL (1.6-2.3) 05/20/17 07:38 Iron 33 ug/dL (37-170) L 05/19/17 07:37 TIBC 318 ug/dL (265-497) 05/19/17 07:37 % Saturation 10.4 % (20-50) L 05/19/17 07:37 Ferritin 149 ng/mL (11-264) 05/19/17 07:37 Total Bilirubin 0.7 mg/dL (0.2-1.3) 05/20/17 07:38 AST 20 U/L (14-36) 05/20/17 07:38 ALT 38 U/L (9-52) 05/20/17 07:38 Alkaline Phosphatase 68 U/L (38-126) 05/20/17 07:38 Total Creatine Kinase 90 U/L (30-135) 05/02/17 02:30 CK-MB (CK-2) 4.0 ng/mL (0.0-2.4) H* 05/02/17 02:30 CK-MB (CK-2) Rel Index 4.4 05/02/17 02:30 Troponin I 0.020 ng/mL (0.000-0.034) 05/02/17 02:30 NT-Pro-B Natriuret Pep 8080 pg/mL 05/02/17 02:30 Total Protein 5.1 g/dL (6.3-8.2) L 05/20/17 07:38 Albumin 3.0 g/dL (3.5-5.0) L 05/20/17 07:38 Vitamin D 25-Hydroxy 11.5 ng/mL (30.0-100.0) L 05/16/17 10:31 Vit D 1,25-Dihydroxy 28 pg/mL (20 - 79) 05/16/17 10:31 PTH Intact 143.8 pg/mL (14.0-72.0) H 05/16/17 10:31 Urine Color Yellow 05/02/17 23:05 Urine Appearance Clear (Clear) 05/02/17 23:05 Urine pH 6.5 (5.0-8.0) 05/02/17 23:05 Ur Specific Kittrell 1.012 (1.001-1.035) 05/02/17 23:05 Urine Protein Trace (Negative) H 05/02/17 23:05 Urine Glucose (UA) Negative (Negative) 05/02/17 23:05 Urine Ketones Negative (Negative) 05/02/17 23:05 Urine Blood Trace (Negative) H 05/02/17 23:05 Urine Nitrite Negative (Negative) 05/02/17 23:05 Urine Bilirubin Negative (Negative) 05/02/17 23:05 Urine Urobilinogen <2.0 mg/dL (<2.0) 05/02/17 23:05 Ur Leukocyte Esterase Negative (Negative) 05/02/17 23:05 Urine RBC 7 /hpf (0-5) H 05/02/17 23:05 Urine WBC 1 /hpf (0-5) 05/02/17 23:05 Ur Squamous Epith Cells <1 /hpf (0-4) 05/02/17 23:05 Hyaline Casts 101 /lpf (0-2) H 05/02/17 23:05 Urine Mucus Rare /hpf (None) H 05/02/17 23:05 Fluid Source Pleural 05/05/17 16:15 Fluid Color Yellow 05/05/17 16:15 Fluid Appearance Clear 05/05/17 16:15 Fluid RBC 152 /uL 05/05/17 16:15 Fluid Nucleated Cells 33 /uL 05/05/17 16:15 Fluid Polynuclear WBCs 13 % 05/05/17 16:15 Fluid Mononuclear WBCs 87 % 05/05/17 16:15 Body Fluid Glucose Source Pleural Fluid 05/05/17 16:15 Fluid Glucose 159 mg/dL 05/05/17 16:15 Body Fluid Protein Source Pleural Fluid 05/05/17 16:15 Fluid Total Protein 1289.0 mg/dL 05/05/17 16:15 Body Fluid LDH Source Pleural Fluid 05/05/17 16:15 Fluid LDH 105 U/L 05/05/17 16:15 Stool Occult Blood Positive (Negative) H 05/18/17 14:20 Urine Legionella Ag Not detected (Not detected) 05/02/17 23:05 Mycoplasma pneumon IgG 2.82 INDEX (<=0.90) H 05/03/17 07:15 Mycoplasma pneumon IgM 0.46 INDEX (<=0.90) 05/03/17 07:15 Blood Type O Positive 05/15/17 11:01 Blood Type Recheck No 05/15/17 11:01 Antibody Screen NEGATIVE 05/15/17 11:01 Crossmatch See Detail 05/15/17 11:01 Spec Expiration Date 05/18/2017 - 230005/15/17 11:01 Microbiology 05/05/17 16:15 Pleural Fluid Acid Fast Bacilli Smear - Final 05/05/17 16:15 Pleural Fluid Acid Fast Bacilli Culture - Preliminary 05/05/17 16:15 Pleural Fluid Fungal Culture - Preliminary 05/05/17 16:15 Pleural Fluid Gram Stain - Final 05/05/17 16:15 Pleural Fluid Body Fluid Culture - Final 05/05/17 18:00 Sputum Gram Stain - Final 05/05/17 18:00 Sputum Sputum Culture - Final Corynebacterium striatum 05/02/17 02:30 Blood Blood Culture - Final No Growth after 144 hours 05/02/17 23:05 Urine,Voided Urine Culture - Final Assessment and Plan (1) COPD (chronic obstructive pulmonary disease) Status: Acute (2) Afib Status: Acute (3) Pleural effusion Narrative/Plan: 57-year-old female who has advanced COPD that is oxygen and inhaled steroid dependent, but continues to smoke. Presents to Hospital feeling increasing shortness of breath. Was associated with increasing amounts of discomfort to her right lower chest especially posterior. Chest ray and ultrasound reveal evidence of an increasing effusion to that area. Potentially will have a thoracentesis. Prior cultures have been negative. No history of MRSA. Given her complex history currently be treating with piperacillin tazobactam and Levaquin plan 48 hours furhter Blood cultures are negative so far. Sputum cultures negative so far. Legionella has come back as negative Mycoplasma is positive for old disease nothing acute Thoracentesis has occurred. Fluid is negative for infection but is an exudate is noted by the chemistry. She does feel symptomatically better since this. Has been seen by cardiothoracic surgery with no plans for surgery . Cytology is negative for malignancy from the thoracentesis. Radiology consult has been requested for the pigtail Pleur-evac catheter placement allowed improvement of breathing, may be removed tomorrow. With current steroid therapy as well as the breathing treatments she was symptomatically improving. Nothing somewhat more poorly again. The patient does have a stage II area on the coccyx for which the Aquacel silver foam dressing is then applied. Advised to try to not always being is sitting up position to offload some pressure to her coccyx. At this time with her progressive disease would consider the possibility of a palliative care process. Status: Acute Code(s): J90 - PLEURAL EFFUSION, NOT ELSEWHERE CLASSIFIED
[2017-05-20] MEDS: WARFARIN 2 MG TAB PO SCH (17:56)
--- NOTE | 2017-05-20 19:56 | P.PN ---
Subjective There is a dictation on the first day of service 05/20/2017, Dr. Eubanks out of [facility], assigned me this patient for follow-up and treatment. This is Dr. Michelet Wiggins [facility] dictation on 05/20/2017 Patient seen evaluated and discussed with her her current problem. She stated that she has improvement since her admission to the hospital which was on May [address] Eubanks Patient went through several diseases i.e. leukocytosis, sepsis, followed by infectious disease. She has also underlying COPD hypoxemia right pleural effusion underwent thoracentesis on the right lower thorax by interventional radiology followed by pneumothorax. Patient also seen by nephrology as well for evaluation and treatment with the underlying indicator of the laboratory of hyperparathyroidism. Patient has positive stool for Hemoccult and she had severe anemia and the clear etiology is unclear, patient had the reticulocyte count elevated 5.3 with the possibility of blood loss and we will be consulting GI for evaluation and treatment. And we will be obtaining as well iron study as well evaluation of the calcium status. Patient through her hospitalization has been many of testing and she appeared to be improved, however her her hemoglobin was today 7.6 with hematocrit 26-25.7 and the platelet count 123 she has been seen by Dr. Raimundo Castellon infectious disease as well, and the PA for Dr. Segun Hinds. Patient seen evaluated and examined: Conjunctiva was pale, sclera 1 the nonicteric pupil was reactive negative oropharynx Neck was supple no JVD no thyromegaly no lymphadenopathy. Lungs was markedly improved from where she was admitted with with good aeration bilaterally and she had been on a steroid and respiratory therapy by Dr. Segun Hinds pulmonary and critical care. Heart she had history of rheumatic heart disease and she had surgery in the past and she was told no more surgery and with the severe mitral stenosis and the treatment only symptomatic. We don't have echocardiogram on the records we' ll request a report of the echocardiogram was done within the current 6 months to evaluate her left ventricular function especially with recurrent of her effusion on the right side. Abdomen is distended could not palpate liver or spleen but tympanitic on percussion no pain. Extremities no edema and positive pulses Skin: Pale level in color and patches of scattered deep pigmentation suspicious of vitamin D deficiency. She requested to have the Burgos catheter uncontrolled she goes home because she felt weak to get into the commode repeatedly or get to the bathroom repeatedly since admission which she is currently still present. Patient is conscious alert oriented able to communicate freely no lateralizing sign. Assessment: #1 leukocytosis, sepsis #2 positive Hemoccult of the stools and anemia 7.6 and the reticulocyte count 5.3 etiology unclear will consult GI for evaluation and treatment. #3 recent history of right thoracic thoracentesis for fluid accumulation bleed do not have data from that aspiration as protein or albumin protein the ratio or LDH. #4 underlying severe anemia, iron deficiency anemia with the possible associated with other deficiencies. #5 rule out vitamin C nicotinic acid and B12 deficiency. #6 rheumatic heart disease with a history of severe mitral stenosis however no echocardiogram on the record we'll try to obtain 1 done in the last 6 months to be on the chart. Plan: #1 we'll check laboratory on the iron saturation with the possibility of iron infusion depend on the diet #2 evaluation of underlying elevated PTH with the evaluation of the calcium and magnesium. #3 evaluation in there is underlying chronic kidney disease and will try to obtain any ultrasound of the kidney done in the past. Her new chest x-ray done today was indicating of reaccumulation of the fluid in the right hemithorax with the unclear etiology. Objective - Vital Signs Vital signs: Vital Signs Temp 98 F 05/20/17 15:00 Pulse 92 05/20/17 19:24 Resp 16 05/20/17 15:00 BP 123/76 05/20/17 15:00 Pulse Ox 100 05/20/17 15:25 Intake & Output 05/20/17 05/20/17 05/21/17 06:59 18:59 06:59 Intake Total 1380 150 Output Total 3000 1500 Balance -1620 -1350 Weight 48.5 kg Intake: IV 150 Piperacillin-Tazobactam 3 50 .375 gm In Dextrose/Water 1 50ml.bag @ 12.5 mls/hr IVPB Q8HR MARY CARMEN Rx#: [id number] Sodium Ferric Gluconat- 100 Sucrose 125 mg In Sodium Chloride 0.9% 100 ml @ 100 mls/hr IVPB DAILY MARY CARMEN Rx#:[id number] Oral 1380 Output: Urine 3000 1500 Uretheral (B[place]os) 3000 1500 Other: Voiding Method Indwelling Catheter Indwelling Catheter # Voids 0 # Bowel Movements 1 - Labs CBC & Chem 7: 05/20/17 07:38 05/20/17 07:38 Labs: Abnormal Lab Results - Last 24 Hours (Table) 05/19/17 05/20/17 05/20/17 Range/Units 20:10 06:50 07:38 WBC 16.5 H (3.8-10.6) k/uL RBC 3.56 L (3.80-5.40) m/uL Hgb 7.6 L (11.4-16.0) gm/dL Hct 25.7 L (34.0-46.0) % MCV 72.2 L (80.0-100.0) fL MCH 21.2 L (25.0-35.0) pg MCHC 29.4 L (31.0-37.0) g/dL RDW 20.4 H (11.5-15.5) % Plt Count 123 L (150-450) k/uL Neutrophils # 12.2 H (1.3-7.7) k/uL Retic Count (0.5-2.0) % Sodium (137-145) mmol/L Chloride (98-107) mmol/L Carbon Dioxide (22-30) mmol/L BUN (7-17) mg/dL POC Glucose (mg/dL) 216 H 127 H (75-99) mg/dL Total Protein (6.3-8.2) g/dL Albumin (3.5-5.0) g/dL 05/20/17 05/20/17 05/20/17 Range/Units 07:38 07:38 11:19 WBC (3.8-10.6) k/uL RBC (3.80-5.40) m/uL Hgb (11.4-16.0) gm/dL Hct (34.0-46.0) % MCV (80.0-100.0) fL MCH (25.0-35.0) pg MCHC (31.0-37.0) g/dL RDW (11.5-15.5) % Plt Count (150-450) k/uL Neutrophils # (1.3-7.7) k/uL Retic Count 5.3 H (0.5-2.0) % Sodium 136 L (137-145) mmol/L Chloride 90 L (98-107) mmol/L Carbon Dioxide 41 H* (22-30) mmol/L BUN 45 H (7-17) mg/dL POC Glucose (mg/dL) 175 H (75-99) mg/dL Total Protein 5.1 L (6.3-8.2) g/dL Albumin 3.0 L (3.5-5.0) g/dL 05/20/17 Range/Units 16:58 WBC (3.8-10.6) k/uL RBC (3.80-5.40) m/uL Hgb (11.4-16.0) gm/dL Hct (34.0-46.0) % MCV (80.0-100.0) fL MCH (25.0-35.0) pg MCHC (31.0-37.0) g/dL RDW (11.5-15.5) % Plt Count (150-450) k/uL Neutrophils # (1.3-7.7) k/uL Retic Count (0.5-2.0) % Sodium (137-145) mmol/L Chloride (98-107) mmol/L Carbon Dioxide (22-30) mmol/L BUN (7-17) mg/dL POC Glucose (mg/dL) 230 H (75-99) mg/dL Total Protein (6.3-8.2) g/dL Albumin (3.5-5.0) g/dL
[2017-05-20 20:04] LABS: Glucose,Whole Blood 164 mg/dL (75-99)
[2017-05-20] MEDS ORDERED: ALBUTEROL NEBULIZED 2.5 MG/3 ML INHALATION PRN (20:06)
[2017-05-20] MEDS: MONTELUKAST 10 MG TAB PO SCH (22:00)
[2017-05-20] MEDS: ALPRAZolam 0.5 MG TAB PO PRN (22:00)
[2017-05-20] MEDS: ATORVASTATIN 40 MG TAB PO SCH (22:00)
[2017-05-20] MEDS: HYDROmorphone 1 MG/ML 1 ML SYRINGE IVP SCH (22:30)
[2017-05-21] MEDS: HYDROmorphone 1 MG/ML 1 ML SYRINGE IVP PRN ×3 (02:37→20:30)
[2017-05-21] MEDS: BUDESONIDE 0.5 MG/2 ML NEBU INHALATION SCH ×2 (07:02→20:15)
[2017-05-21] MEDS: IPRATROPIUM-ALBUTEROL 3 ML NEB INHALATION SCH ×4 (07:02→20:15)
[2017-05-21 07:40] LABS: Anisocytosis Moderate; Basophils % (A) 0 %; CH 21.5; Eosinophils # (A) 0.1 k/uL (0-0.7); Eosinophils % (A) 1 %; HCT 25.8 % (34.0-46.0); HDW 3.48; HGB 7.7 gm/dL (11.4-16.0); Hypochromasia Marked; Luc # (Auto) 0.17; Luc % (Auto) 1; Lymphocytes # (A) 2.8 k/uL (1.0-4.8); Lymphocytes % (A) 19 %; MCH 22.1 pg (25.0-35.0); MCHC 29.8 g/dL (31.0-37.0); MCV 74.2 fL (80.0-100.0); Mean Platelet Volume 7.6; Microcytosis Moderate; Monocytes # (A) 0.7 k/uL (0-1.0); Monocytes % (A) 5 %; Neutrophils # (A) 10.4 k/uL (1.3-7.7); Neutrophils % (A) 73 %; Poikilocytosis Slight; RBC 3.48 m/uL (3.80-5.40); RDW 20.6 % (11.5-15.5); WBC 14.3 k/uL (3.8-10.6); WBC (Perox) 14.35
[2017-05-21 07:45] LABS: INR 1.1 (<1.2); Prothrombin Time 10.9 sec (9.0-12.0)
[2017-05-21 07:48] LABS: ALT 41 U/L (9-52); AST 25 U/L (14-36); Alkaline Phosphatase 86 U/L (38-126); Anion Gap 7 mmol/L; Blood Urea Nitrogen 40 mg/dL (7-17); Calcium 8.7 mg/dL (8.4-10.2); Carbon Dioxide 35 mmol/L (22-30); Chloride 93 mmol/L (98-107); Glucose 90 mg/dL (74-99); Magnesium 2.2 mg/dL (1.6-2.3); Non-African American GFR(MDRD) >60 (>60 ml/min/1.73 sqM); Potassium 3.7 mmol/L (3.5-5.1); Sodium 135 mmol/L (137-145); Total Bilirubin 0.7 mg/dL (0.2-1.3); Total Protein 5.6 g/dL (6.3-8.2)
[2017-05-21 07:55] LABS: Glucose,Whole Blood 115 mg/dL (75-99)
[2017-05-21] MEDS: HYDROcodone/APAP 10-325MG 1 EACH TAB PO PRN ×2 (07:56→14:24)
[2017-05-21] MEDS: INSULIN LISPRO (humaLOG) 300 UNIT/3 ML VIAL SQ SCH ×4 (07:57→22:20)
[2017-05-21] MEDS: acetaZOLAMIDE 250 MG TAB PO SCH ×2 (08:00→20:35)
[2017-05-21] MEDS: DIGOXIN 125 MCG TAB PO SCH (08:00)
[2017-05-21] MEDS: POTASSIUM CHLORIDE ER 10 MEQ TAB.ER.PRT PO SCH (08:00)
[2017-05-21] MEDS: DOCUSATE 100 MG CAP PO SCH (08:00)
[2017-05-21] MEDS: ENOXAPARIN 40 MG/0.4 ML SYRINGE SQ SCH ×2 (08:00→20:35)
[2017-05-21] MEDS: guaiFENesin 600 MG TABLET.ER PO SCH ×2 (08:00→20:35)
[2017-05-21] MEDS: methylPREDNISolone SOD SUCCI 40 MG/ML 1 ML VIAL IV SCH (08:00)
[2017-05-21] MEDS: FUROSEMIDE 40 MG TAB PO SCH ×2 (08:00→20:35)
[2017-05-21 08:24] LABS: Reticulocyte % 5.4 % (0.5-2.0)
[2017-05-21] MEDS: SODIUM FERRIC GLUCONAT-SUCROSE 125 MG in SODIUM CHLORIDE 0.9% 100 ML IVPB SCH (08:24)
--- NOTE | 2017-05-21 08:46 | PN ---
The patient is seen for follow-up for hypocalcemia. Serum calcium has improved which is at 8.7 mgDL. ( ) Vitamin D was low and she is maintained on supplementations. On examination, blood pressure is 127/66. Heart rate 88 per minute. She is afebrile Examination of the heart S1, and S2. Examination of the lungs bilateral breath sounds are heard. Abdomen is soft, nontender. Extremities of the lower extremities shows no significant edema. Labs reveal serum calcium 8.7. Sodium 135, potassium 3.7, serum creatinine 0.8. ASSESSMENT: 1. Hypocalcemia, multifactorial, ( ) associated with nutritional Vitamin D deficiency. Currently improved. PTH was appropriately elevated. 2. Anemia, status post packed RBC transfusion. 3. Pneumonia with sputum culture positive for ( ) bacterium. 4. Right pleural effusion with thoracentesis status post chest tube placement , currently maintained on Lasix. 5. Iron deficiency, started on IV iron. PLAN: Continue Vitamin D supplementation. Repeat labs periodically. MTDD
[2017-05-21] MEDS: PIPERACILLIN-TAZOBACTAM 3.375 GM in DEXTROSE/WATER 1 50ML.BAG IVPB SCH ×3 (09:05→23:23)
[2017-05-21 10:14] LABS: Iron 245 ug/dL (37-170)
[2017-05-21 10:24] LABS: % Iron Saturation 74.7 % (20-50); Total Iron Binding Capacity 328 ug/dL (265-497)
--- NOTE | 2017-05-21 11:00 | CONS ---
DATE OF SERVICE: 05/21/2017 REASON FOR CONSULTATION: Symptomatic anemia, hemoglobin of 7.8. HISTORY OF PRESENT ILLNESS: The patient is a 57-year-old white female with history of COPD, was admitted to the hospital with pneumonia, sepsis, right sided pleural effusion from which he underwent thoracentesis followed by chest tube placement for pneumothorax. her chest tube was removed about 3 days ago. We are consulted because of anemia and hemoglobin that has been gradually drifting down to 7.8 today. The patient denies any abdominal pain. She reports no nausea or vomiting. Denies any rectal bleeding or melena. She has history of A. fib and has been on Coumadin for several years. She recalls having a colonoscopy many years ago, which was normal. She denies any recent NSAID use. No prior history of peptic ulcer disease. Her breathing is much better . Past medical history is significant for COPD on home O2, history of A. fib on Coumadin, congestive heart failure, diabetes mellitus, hypertension, chronic renal insufficiency, mitral valve stenosis for which she had surgery many years ago. PAST SURGICAL HISTORY: Hysterectomy, mitral valve balloon valvuloplasty. HOME MEDICATIONS: 1. Gorham. 2. Combivent. 3. Digitek. 4. Ventolin. 5. Lasix. 6. Lipitor. 7. Singulair. 8. K-Dur. 9. Desyrel. 10. Coumadin. Allergies to ASPIRIN. SOCIAL HISTORY: History of smoking in the past. No alcohol use. FAMILY HISTORY: Father has dementia. Mother had MT and coronary artery disease. REVIEW OF SYSTEMS: CARDIOPULMONARY: She does complain of some shortness of breath. GENITOURINARY: No dysuria or hematuria. MUSCULOSKELETAL: Unremarkable. SKIN: Unremarkable. ENDOCRINE: Unremarkable. PSYCHIATRY: Unremarkable. NEUROLOGY: Unremarkable. ENT/VISION: Unremarkable. CONSTITUTIONAL: No recent weight loss. No fever, chills, night sweats. HEMATOLOGY: Unremarkable. On physical examination, she appears comfortable in no apparent distress. Vital signs are stable. Blood pressure is 130/82, pulse rate 88 and afebrile. HEENT EXAMINATION: Unremarkable. Conjunctivae are pink. Sclerae anicteric. Oral cavity no lesions. NECK: No JVD or lymph node enlargement. CHEST: Clear to auscultation. HEART: Regular rate and rhythm. ABDOMEN: Soft. Bowel sounds are positive. No organomegaly. EXTREMITIES: No pedal edema. SKIN: No rashes. NEURO: Alert and oriented x3. No focal deficits. LABS: From today, hemoglobin is 7.6, yesterday it was 7.6 and on May 19 it was 7.8. BUN is 40. Creatinine is 0.8. PT 10.9 with INR of 1.1. Hemoglobin 5 days ago was 9.3 grams/dL. IMPRESSION: 1. Microcytic anemia, but clinically no evidence of active ongoing bleeding, most likely anemia is multifocal, but possibility of iron deficiency anemia cannot be excluded given the microcytosis noted on the peripheral smear. 2. Chronic obstructive pulmonary disease on home oxygen. 3. Recent pleural effusion, status post thoracentesis followed by pneumothorax and subsequent chest tube placement that has been removed 3 days ago. 4. Sepsis, on broad-spectrum antibiotics, gradually improving. RECOMMENDATIONS: 1. Will obtain iron studies. 2. Since there is no active bleeding, I will not recommend any endoscopy intervention at the present time, but if we are dealing with iron deficiency basis on the iron indices, I will consider endoscopic workup on an outpatient basis. I discussed with the patient about the plan, she is agreeable to it. Thank you for this consultation. ISACC
[2017-05-21 11:03] LABS: Vitamin B12 443 pg/mL (239-931)
[2017-05-21] MEDS: FERROUS SULFATE 325 MG TAB PO SCH (11:31)
[2017-05-21 11:38] LABS: Glucose,Whole Blood 286 mg/dL (75-99)
--- NOTE | 2017-05-21 12:37 | P.PN ---
Subjective Principal diagnosis: 05/02/17 This is a 57-year-old female patient being seen, examined and evaluated. Patient is well-known to our services. This Patient comes in with complaints of shortness of breath that had been increasing over the last few days. The patient does have a significant medical history for CHF, COPD that is severe, chronic persistent asthma but severe, atrial fibrillation, renal insufficiency and liver disease. This patient has a known history for reoccurring pneumonia as well. Patient states she uses 4-5 L of supplemental oxygen at home at all times. Upon examination the patient's resting up in bed on 5 L of supplemental oxygen, she states she has shortness of breath with any minimal exertion as well as extensive conversation. Chest x-ray has been reviewed and shows an increasing right pleural effusion which is associated with atelectasis, possible pulmonary artery hypertension, and congestive heart failure. 05/03/17 upon examination today the patient's resting up in bed and continues to be on 5 L of supplemental oxygen. Patient continues to have shortness of breath with any minimal exertion and extensive conversation. Patient did undergo an ultrasound of the chest yesterday which revealed a right pleural effusion fluid pocket of 10.4 cm this has increased significantly since her last ultrasound of the chest which was done 02/08/2017 which showed a right pleural effusion pocket of 4.2 at that time. During that admission in January the effusion was too small to undergo a thoracentesis. Of note ,since its progression, the patient is a candidate to have the thoracentesis performed in regards to size. However the patient was on Coumadin for chronic A. fib and her INR yesterday was 2.9. Yesterday we discontinued the Coumadin and put the patient on Lovenox in preparation for thoracentesis. A repeat INR was performed today and is currently 3.6. We would like the patient's INR to be closer to 1.4 before we perform the thoracentesis. Repeat labs will be drawn tomorrow. 05/04/17 examination today the patient's resting up in bed and continues on 5 L of supplemental oxygen. Patient states she is a little less short of breath today than previously. However she still continues to have shortness of breath with exertion. Patient's INR today was 3.7, which is still too high to undergo a thoracentesis. Labs have been reviewed. We truly the increase in INR due to the patient being on Levaquin as a side effect. 05/05/17- upon examination today the patient is resting up in bed and continues on the 5 L of supplemental oxygen. The patient's INR today is 1.3 therefore we can go forth with the thoracentesis. The procedure as well as the risk and benefits have been discussed at length with the patient QUESTIONS have been answered. After the thoracentesis is completed the fluid will be sent for lab workup. The patient will be able to start back on her Coumadin tonight. The patient should continue with Lovenox until her INR is more than 1.8. Patient continues to have shortness of breath with exertion. 05/06/17- patient did undergo a thoracentesis yesterday. 1.6 L of clear yellow pleural fluid was removed. It was discovered on the post x-ray at the patient did have a 20% pneumothorax. The patient was asymptomatic at that time. The patient was to be watched closely overnight and have a repeat chest x-ray that evening which was stable and another one this morning which dates show a possible slight increase in the pneumothorax. CT of the chest without contrast was obtained and results are not readily available. We will consult cardiothoracic to follow the patient and interventional radiology to place a pigtail catheter. Upon examination the patient is resting up in bed and despite the pneumothorax the patient states her breathing is better today after having the fluid removed. Patient is still requiring 4-5 L of supplemental oxygen however she said her shortness of breath has decreased. Patient is afebrile no further complaints. 05/07/17 and 05/08/17, please refer to DR. JULIO Gao note, as he covered these days. 05/09/17-upon examination today the patient's resting up in bed on 5 L of supplemental oxygen. Chest x-rays have been reviewed and the patient still has a pneumothorax that has not improved, pneumothorax remains about 30%. Therefore the patient will ultimately require a chest tube placement by interventional radiology. Patient continues to feel short of breath and tight. Today she states she feels slightly worse than yesterday in regards to her breathing. We'll recheck her CBC CMP and PT/INR. Patient has had her Coumadin on hold since pneumothorax and she has been receiving Lovenox. 05/10/17- on examination today the patient has just came back from interventional radiology after pigtail chest tube insertion. There is approximately 300 ML's of serosanguineous drainage noted upon arrival and the pleural VAC has not been attached to suction yet at this time. Patient will be hooked up to wall suction. Patient states that this initially received the chest tube she had immediate relief in her shortness of breath which decreased significantly. Patient states she is breathing much better post procedure. Patient is noted to be sitting up in bed and continues on 5 L of supplemental oxygen. Labs and radiology reports have been reviewed. 05/11/17- upon examination today the patient is resting up in bed and states she feels better today. Patient continues on 5 L of supplemental oxygen. Patient still has her chest tube in and has had approximately 700 ML's of serosanguineous output total since it was inserted. Her appetite has improved slightly as well. Patient states she is much more comfortable today. She continues on IV Solu-Medrol, updrafts and antibiotics. 05/12/17- today the patient is seen resting in bed on 4-5 L of oxygen. The patient states that she continues to have a productive cough with congestion. She is breathing easier with less effort. Appetite continues to improve. Her chest tube shows an output of approximately 875 ML's total output. Continues to be hooked up to suction. States her appetite continues to wax and wane. Chest x-ray from today has been reviewed patient's hydropneumothorax has been improved and remains about 15%. 05/13/17-today the patient seen resting up in bed on 4-5 L of supplemental oxygen via nasal cannula. She continues to have a productive cough with congestion however she states this is slightly improved today. She continues to breathe easier with less effort. Currently she is eating. Her chest tube shows approximately a total of 1100 ML's of serosanguineous drainage. Coumadin is still currently on hold and she is utilizing Lovenox. Chest x-ray is pending. No further complaints no overnight events. She is utilizing her incentive spirometer and pulls volumes of 1750. We will decrease her steroids today. 05/14/17, patient seen and evaluated examined today she is complaining of some shortness of breath and congestion however not producing much sputum her chest x -ray from today has been reviewed very small residual pneumothorax and small effusions seen she has put out another 350 mL in the last 48 hours the pleural VAC in control is adequate chest tube is connected with the 20 cm water of section is doing IS regularly on 4-5 L oxygen with stable oxygenation 05/15/17, patient seen and evaluated examined care plan discussed with the nurse at length critical care time spent 35 minutes chest x-ray from today reviewed the laboratory data reviewed as well care plan discussed with the primary service, patient is complaining of some weakness and tiredness has been congested as well and slightly more short of breath however her chest x-ray looks much improved she had put out more than 300 mL and pleural VAC December chest x-ray from today reveal almost resolution of pneumothorax some reexpansion pulmonary edema in the right lower lobe versus right lower lobe pneumonia cannot be excluded she does have cough but no sputum is coming out she remains on 4 L oxygen, she is being planned for replacement of calcium transfusion of 2 unit packed RBC replacement of potassium and placement of new peripheral IVs antibiotics in the form of IV Zosyn is being started 05/16/17- upon examination today the patient is seen resting up in bed on 5 L of supplemental oxygen. Chest x-ray has been reviewed and does show improvement in the pneumothorax with some reexpansion pulmonary edema in the right lower lobe versus right lower lobe pneumonia cannot be excluded. Patient's electrolytes known to be off therefore nephrology will be consult it. Patient is also being seen by infectious disease and cardiology. Patient's pleural low back continues to be patent and draining serosanguineous fluids. The pleural VAC chamber was changed today at 6 AM. The patient is noted that have 70 ML out between 6 AM and 9 AM. Patient's hemoglobin is stable today at 8.6. No further signs of bleeding. Patient is using her incentive spirometer and pulling volumes of approximately thousand ML. 05/17/17 upon examination the patient is resting up in bed on [address] of supplemental oxygen[address] Hinds did remove the chest tube without complication. Chest x-ray has been obtained postprocedure and shows no complication post chest tube removal, no pneumothorax. Patient has been hemodynamically stable. She is resting more comfortably. Hemoglobin remained stable at 8.6. She denies any pain or discomfort at this time. She continues to be followed by nephrology as well as infectious disease. 05/18/17 upon examination today the patient's resting up in bed on 5 L of supplemental oxygen. Chest tube insertion site noted to have small amount of serosanguineous drainage on the dressing. Chest x-ray has been reviewed and is stable. Labs reviewed. Hemoglobin today is 8.5. Patient had no overnight events no further complaints. 05/19/17- patient is seen and examined today on rounds. Patient continues on 5 L of supplemental oxygen. Chest tube site clean and dry and intact no drainage noted. Patient continues to complain of some congestion however Mucinex is helping. Labs have been reviewed, hemoglobin 7.8 today. Coumadin was restarted yesterday, INR is 1.1. We can discontinue the Lovenox once INR is greater than 2. No overnight events. 05/20/17- patient is being seen in examined and evaluated on rounds today. She continues on supplemental oxygen of 5 L via nasal cannula. Continues with shortness of breath with exertion. Congestion slightly improving. Hemoglobin today is 7.6 CO2 was noted to be 41. Chest x-ray and labs were reviewed. Patient does have a pleural effusion however we will try to medically manage it at this time we do not want to go forth with a thoracentesis at this point. Follow she is on consult and has adjusted medications due to alkalosis related to diuretic induced volume contraction. Patient was placed on Diamox 250 mg twice a day. Electrolytes monitored and being replaced per protocol. 05/21/17 patient's seen and evaluated exam and on fifth floor remains on supplemental oxygen her CO2 was noted to be elevated likely related to multifactorial processes including hypercapnia as well as diuresis she is short of breath but overall stable no chest pain no cough or sputum production remains on broad-spectrum antibiotics patient has been resumed on Coumadin noted chest x-ray revealed reaccumulation of fluid on the right side but no hydropneumothorax has been seen no plans for thoracentesis at this point of time Objective - Vital Signs Vital signs: Vital Signs Temp 97.7 F 05/20/17 22:16 Pulse 86 05/21/17 11:24 Resp 18 05/21/17 08:36 BP 103/54 05/21/17 08:36 Pulse Ox 100 05/21/17 08:36 Intake & Output 05/20/17 05/21/17 05/21/17 18:59 06:59 18:59 Intake Total 150 610 Output Total 1500 Balance -1350 610 Intake: IV 150 130 0.9 80 Piperacillin-Tazobactam 3 50 50 .375 gm In Dextrose/Water 1 50ml.bag @ 12.5 mls/hr IVPB Q8HR [facility] Rx#: [id number] Sodium Ferric Gluconat- 100 Sucrose 125 mg In Sodium Chloride 0.9% 100 ml @ 100 mls/hr IVPB DAILY [facility] Rx#:[id number] Oral 480 Output: Urine 1500 Uretheral (Burgos) 1500 Other: Voiding Method Indwelling Catheter Indwelling Catheter Indwelling Catheter # Bowel Movements 1 - Exam GENERAL EXAM: Alert, cachectic, comfortable in no apparent distress. HEAD: Normocephalic. EYES: Normal reaction of pupils, equal size. NOSE: Clear with pink turbinates. THROAT: No erythema or exudates. NECK: No masses, no JVD. CHEST: No chest wall deformity. LUNGS: Poor air entry is present, scattered rhonchi as well as expiratory wheezes noted throughout. Right-sided pigtail chest tube has been removed dressing is in place. CVS: S1 and S2 normal with no audible mumurs, regular rhythm. ABDOMEN: No hepatosplenomegaly, normal bowel sounds, no guarding or rigidity. EXTREMITIES: Trace edema noted, pedal pulses palpable. SKIN: No rashes, dressing in place to coccyx wound CENTRAL NERVOUS SYSTEM: No focal deficits, tone is normal in all 4 extremities. - Labs CBC & Chem 7: 05/21/17 06:43 05/21/17 06:43 Labs: Abnormal Lab Results - Last 24 Hours (Table) 05/20/17 05/20/17 05/21/17 Range/Units 16:58 20:01 06:43 WBC 14.3 H (3.8-10.6) k/uL RBC 3.48 L (3.80-5.40) m/uL Hgb 7.7 L (11.4-16.0) gm/dL Hct 25.8 L (34.0-46.0) % MCV 74.2 L (80.0-100.0) fL MCH 22.1 L (25.0-35.0) pg MCHC 29.8 L (31.0-37.0) g/dL RDW 20.6 H (11.5-15.5) % Plt Count 142 L (150-450) k/uL Neutrophils # 10.4 H (1.3-7.7) k/uL Retic Count (0.5-2.0) % Sodium (137-145) mmol/L Chloride (98-107) mmol/L Carbon Dioxide (22-30) mmol/L BUN (7-17) mg/dL POC Glucose (mg/dL) 230 H 164 H (75-99) mg/dL Iron (37-170) ug/dL % Saturation (20-50) % Total Protein (6.3-8.2) g/dL Albumin (3.5-5.0) g/dL 05/21/17 05/21/17 05/21/17 Range/Units 06:43 06:43 07:34 WBC (3.8-10.6) k/uL RBC (3.80-5.40) m/uL Hgb (11.4-16.0) gm/dL Hct (34.0-46.0) % MCV (80.0-100.0) fL MCH (25.0-35.0) pg MCHC (31.0-37.0) g/dL RDW (11.5-15.5) % Plt Count (150-450) k/uL Neutrophils # (1.3-7.7) k/uL Retic Count 5.4 H (0.5-2.0) % Sodium 135 L (137-145) mmol/L Chloride 93 L (98-107) mmol/L Carbon Dioxide 35 H (22-30) mmol/L BUN 40 H (7-17) mg/dL POC Glucose (mg/dL) 115 H (75-99) mg/dL Iron 245 H (37-170) ug/dL % Saturation 74.7 H (20-50) % Total Protein 5.6 L (6.3-8.2) g/dL Albumin 3.4 L (3.5-5.0) g/dL 05/21/17 Range/Units 11:32 WBC (3.8-10.6) k/uL RBC (3.80-5.40) m/uL Hgb (11.4-16.0) gm/dL Hct (34.0-46.0) % MCV (80.0-100.0) fL MCH (25.0-35.0) pg MCHC (31.0-37.0) g/dL RDW (11.5-15.5) % Plt Count (150-450) k/uL Neutrophils # (1.3-7.7) k/uL Retic Count (0.5-2.0) % Sodium (137-145) mmol/L Chloride (98-107) mmol/L Carbon Dioxide (22-30) mmol/L BUN (7-17) mg/dL POC Glucose (mg/dL) 286 H (75-99) mg/dL Iron (37-170) ug/dL % Saturation (20-50) % Total Protein (6.3-8.2) g/dL Albumin (3.5-5.0) g/dL Assessment and Plan Plan: right-sided pleural effusion reaccumulation will monitor all observed Right-sided pneumothorax, resolved Right-sided pleural effusion with right sided pneumonia suspect mixed/gram- negative in nature, on broad-spectrum antibiotics Acute exacerbation of chronic obstructive pulmonary disease Acute on chronic hypoxic respiratory failure Congestive heart failure Probable pulmonary hypertension Atrial fibrillation Chronic anemia Severe protein calorie malnutrition Hypocalcemia Plan Medications have been reviewed and will be continued as ordered. Continue with IV antibiotics. May restart Coumadin, d/c lovenox when INR is greater than 2. Pleural fluid has been sent for lab workup is negative so far. Continue with Solu-Medrol and budesonide as well as Mucinex. Repeat labs in the morning. Cardiology on consult. Infectious disease on consult. Nephrology on consult. Continue with pulmonary hygiene, coughing and deep breathing exercises, and supportive care. Supplemental oxygen to maintain oxygen saturations of 92% or better. Continue nebulizer treatments. GI and DVT prophylaxis. Ensure 3 times a day with meals. We will continue to monitor labs/results and adjust treatment as necessary. Further recommendations pending. Time with Patient: Greater than 30
--- NOTE | 2017-05-21 13:10 | P.PN ---
Subjective This is a dictation on follow-up secondary of service, patient of Dr. Morales Eubanks and he requested me to follow the patient during his temporary absence. Date of service 05/21/2017. Patient seen evaluated discussed with her the current problem and extensive discussion in regard of her future discharge and working with the social service for home placement versus long-term alf placement, patient has been in the hospital with the frequent admission, with her chronic illness she will not result. Patient has history of rheumatic heart disease and had severe mitral stenosis without surgical intervention all with she will have pressure in the lung pulmonary hypertension as well as decompensation. 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 Her mitral valve gradient 47 with a mean 23 indicating severe mitral stenosis she has also tricuspid regurg severe and severe pulmonary hypertension or right ventricular systolic pressure measured at 70.10 mmHg. Trace aortic regurgitation patient understand and she could not have surgery but her recurrent symptoms with the effusion and repeated thoracentesis will be occurred due to her chronic illness. In regard of her anemia: Her hemoglobin is 7.7, hematocrit 25.8, her white count 14.3 which is improved. MCV 74.2 and RBCs 3.48 and the reticulocyte count 5.3 elevated, these finding indicating or suggestive of macrocytic hypochromic anemia, with a positive stool for Hemoccult, Dr. Tucker saw the patient today and her recommendation on the chart, the above result also indicating thrombocytopenia with the mild with decreased platelet 142. Her iron study did not support the and anemia of iron deficiency, serum iron 245 TIBC 328 iron saturation 74.7 which is elevated and serum ferritin 195. In regard of hypocalcemia, patient seen by nephrology Dr. Albarado and the patient found to be with hypocalcemia secondary to vitamin D deficiency and appropriate elevation of the PTH intact due to hypercalcemia as physiologic response. In regards of diabetes mellitus2 patient currently fluctuating with the blood sugar in the morning was 1:15 after breakfast and prior to lunch is increased to 286 which is response to the meal and will check her hemoglobin A1c. Patient has Burgos catheter, patient insisted to continue with the Burgos catheter in spite of the risk factor of infection, because her weakness and could not go to the bathroom fast enough. We tried to rationalize with her the having the Burgos catheter removed, Patient also seen by Dr. Castellon infectious disease. Patient had history of chest tube placement under CAT scan guided done by invasive radiology protocol for aspiration PLEURAL effusion and thoracentesis on the order of Dr. Segun Hinds.. Last chest x-ray indicating of reaccumulation with the probably associated of the severe mitral stenosis. Normal PT and INR, AST 25 a LT 41 alk phos 86. And vital sign indicating blood pressure 103/54 mean is 70 saturation 100% on 3 L respiratory rate 18 heart rate was 86 sinus. The vitamin deficiencies laboratory not available yet except for vitamin B12 which is normal 443. Physical exam today: Patient conscious alert oriented 3 able to understand the discussion and the had a chronic illness. HEENT was negative neck was supple no JVD Chest was increased anteroposterior diameter with underlying COPD no wheezes nor rhonchi's. Heart: Regular sinus rhythm with the underlying murmur on the heart 11/29. Abdomen positive bowel sound no tenderness no apparent organomegaly enlargement. Extremities no edema good perfusion of the lower extremities. Neurologically stable. Assessment: Multiple medical problem with the presence of acute on the top of chronic #1 chronic mitral valve disease with severe stenosis associated with complication with effusion and status post thoracentesis #2 ejection fraction is normal 55-60% however associated with severe pulmonary hypertension, left atrial enlargement which are dispels to a half severe tricuspid regurg as well as well as the severe right ventricular pressure which could be associated with diastolic dysfunction. #2 severe anemia with high iron saturation and normal serum ferritin and normal serum iron however it is macrocytic hypochromic. #3 COPD with carbon dioxide retention. #4 chronic pain. #5 history of pneumonia and sepsis currently on antibiotic with the improvement of the leukocytic count. #5 patient on a steroid currently the lung is clear and will plan for gradual decrease his steroid or asking the pulmonary to reevaluate. #6 diabetes mellitus2 and will check the hemoglobin A1c as well. Plan: Significant discussion and more than 30 minutes spent with the patient [id number] Discussion and regarding of her future plan and the chronic placement of a alf will be more advisable. Objective - Vital Signs Vital signs: Vital Signs Temp 97.7 F 05/20/17 22:16 Pulse 86 05/21/17 11:24 Resp 18 05/21/17 08:36 BP 103/54 05/21/17 08:36 Pulse Ox 100 05/21/17 08:36 Intake & Output 05/20/17 05/21/17 05/21/17 18:59 06:59 18:59 Intake Total 150 610 Output Total 1500 Balance -1350 610 Intake: IV 150 130 0.9 80 Piperacillin-Tazobactam 3 50 50 .375 gm In Dextrose/Water 1 50ml.bag @ 12.5 mls/hr IVPB Q8HR [facility] Rx#: [id number] Sodium Ferric Gluconat- 100 Sucrose 125 mg In Sodium Chloride 0.9% 100 ml @ 100 mls/hr IVPB DAILY [facility] Rx#:[id number] Oral 480 Output: Urine 1500 Uretheral (Burgos) 1500 Other: Voiding Method Indwelling Catheter Indwelling Catheter Indwelling Catheter # Bowel Movements 1 - Labs CBC & Chem 7: 05/21/17 06:43 05/21/17 06:43 Labs: Abnormal Lab Results - Last 24 Hours (Table) 05/20/17 05/20/17 05/21/17 Range/Units 16:58 20:01 06:43 WBC 14.3 H (3.8-10.6) k/uL RBC 3.48 L (3.80-5.40) m/uL Hgb 7.7 L (11.4-16.0) gm/dL Hct 25.8 L (34.0-46.0) % MCV 74.2 L (80.0-100.0) fL MCH 22.1 L (25.0-35.0) pg MCHC 29.8 L (31.0-37.0) g/dL RDW 20.6 H (11.5-15.5) % Plt Count 142 L (150-450) k/uL Neutrophils # 10.4 H (1.3-7.7) k/uL Retic Count (0.5-2.0) % Sodium (137-145) mmol/L Chloride (98-107) mmol/L Carbon Dioxide (22-30) mmol/L BUN (7-17) mg/dL POC Glucose (mg/dL) 230 H 164 H (75-99) mg/dL Iron (37-170) ug/dL % Saturation (20-50) % Total Protein (6.3-8.2) g/dL Albumin (3.5-5.0) g/dL 05/21/17 05/21/17 05/21/17 Range/Units 06:43 06:43 07:34 WBC (3.8-10.6) k/uL RBC (3.80-5.40) m/uL Hgb (11.4-16.0) gm/dL Hct (34.0-46.0) % MCV (80.0-100.0) fL MCH (25.0-35.0) pg MCHC (31.0-37.0) g/dL RDW (11.5-15.5) % Plt Count (150-450) k/uL Neutrophils # (1.3-7.7) k/uL Retic Count 5.4 H (0.5-2.0) % Sodium 135 L (137-145) mmol/L Chloride 93 L (98-107) mmol/L Carbon Dioxide 35 H (22-30) mmol/L BUN 40 H (7-17) mg/dL POC Glucose (mg/dL) 115 H (75-99) mg/dL Iron 245 H (37-170) ug/dL % Saturation 74.7 H (20-50) % Total Protein 5.6 L (6.3-8.2) g/dL Albumin 3.4 L (3.5-5.0) g/dL 05/21/17 Range/Units 11:32 WBC (3.8-10.6) k/uL RBC (3.80-5.40) m/uL Hgb (11.4-16.0) gm/dL Hct (34.0-46.0) % MCV (80.0-100.0) fL MCH (25.0-35.0) pg MCHC (31.0-37.0) g/dL RDW (11.5-15.5) % Plt Count (150-450) k/uL Neutrophils # (1.3-7.7) k/uL Retic Count (0.5-2.0) % Sodium (137-145) mmol/L Chloride (98-107) mmol/L Carbon Dioxide (22-30) mmol/L BUN (7-17) mg/dL POC Glucose (mg/dL) 286 H (75-99) mg/dL Iron (37-170) ug/dL % Saturation (20-50) % Total Protein (6.3-8.2) g/dL Albumin (3.5-5.0) g/dL
[2017-05-21] MEDS: ALPRAZolam 0.25 MG TAB PO PRN (14:24)
[2017-05-21 17:39] LABS: Glucose,Whole Blood 284 mg/dL (75-99)
[2017-05-21] MEDS: WARFARIN 2 MG TAB PO SCH (18:50)
[2017-05-21] MEDS: ATORVASTATIN 40 MG TAB PO SCH (20:35)
[2017-05-21] MEDS: MONTELUKAST 10 MG TAB PO SCH (20:35)
[2017-05-21] MEDS: traZODone HCL 50 MG TAB PO SCH (20:36)
[2017-05-21 21:57] LABS: Glucose,Whole Blood 82 mg/dL (75-99)
[2017-05-21] MEDS: HYDROmorphone 1 MG/ML 1 ML SYRINGE IVP SCH (23:46)
[2017-05-21] MEDS: ALPRAZolam 0.5 MG TAB PO PRN (23:51)
[2017-05-22] MEDS: HYDROcodone/APAP 10-325MG 1 EACH TAB PO PRN ×3 (02:24→15:07)
[2017-05-22] MEDS: HYDROmorphone 1 MG/ML 1 ML SYRINGE IVP PRN ×3 (04:39→20:57)
[2017-05-22] MEDS: BUDESONIDE 0.5 MG/2 ML NEBU INHALATION SCH ×2 (07:20→20:19)
[2017-05-22] MEDS: IPRATROPIUM-ALBUTEROL 3 ML NEB INHALATION SCH ×4 (07:20→20:19)
[2017-05-22 07:35] LABS: Anisocytosis Slight; Basophils % (A) 0 %; CHCM 28.2; Eosinophils # (A) 0.2 k/uL (0-0.7); Eosinophils % (A) 2 %; HCT 26.6 % (34.0-46.0); HDW 3.52; HGB 7.6 gm/dL (11.4-16.0); Hypochromasia Marked; Luc # (Auto) 0.26; Luc % (Auto) 2; Lymphocytes # (A) 3.1 k/uL (1.0-4.8); Lymphocytes % (A) 20 %; MCH 21.5 pg (25.0-35.0); MCHC 28.8 g/dL (31.0-37.0); MCV 74.7 fL (80.0-100.0); Microcytosis Moderate; Monocytes # (A) 0.7 k/uL (0-1.0); Monocytes % (A) 5 %; Neutrophils # (A) 11.2 k/uL (1.3-7.7); Neutrophils % (A) 72 %; Poikilocytosis Slight; RBC 3.56 m/uL (3.80-5.40); RDW 19.9 % (11.5-15.5); WBC 15.5 k/uL (3.8-10.6); WBC (Perox) 15.31
[2017-05-22 07:36] LABS: INR 1.2 (<1.2)
--- NOTE | 2017-05-22 07:42 | XR ---
EXAMINATION TYPE: XR chest w decubitus views DATE OF EXAM: 05/22/2017 COMPARISON: Prior chest x-ray 05/20/2017 HISTORY: Pleural effusion, abnormal chest x-ray TECHNIQUE: Frontal and lateral views of the chest are obtained with bilateral decubitus views. FINDINGS: Pleural parenchymal changes are stable. Heart remains enlarged. No evident pneumothorax. T here is no sizable pleural effusion evident. IMPRESSION: Similar findings, correlate for possible pneumonia.
[2017-05-22 07:54] LABS: Glucose,Whole Blood 122 mg/dL (75-99)
[2017-05-22 07:58] LABS: ALT 40 U/L (9-52); AST 24 U/L (14-36); Anion Gap 10 mmol/L; Blood Urea Nitrogen 36 mg/dL (7-17); Calcium 8.7 mg/dL (8.4-10.2); Carbon Dioxide 30 mmol/L (22-30); Chloride 98 mmol/L (98-107); Glucose 104 mg/dL (74-99); Non-African American GFR(MDRD) >60 (>60 ml/min/1.73 sqM); Sodium 138 mmol/L (137-145); Total Bilirubin 0.6 mg/dL (0.2-1.3); Total Protein 5.8 g/dL (6.3-8.2)
[2017-05-22 07:59] LABS: Alkaline Phosphatase 88 U/L (38-126)
[2017-05-22] MEDS: ENOXAPARIN 40 MG/0.4 ML SYRINGE SQ SCH (08:20)
[2017-05-22] MEDS: POTASSIUM CHLORIDE ER 10 MEQ TAB.ER.PRT PO SCH (08:20)
[2017-05-22] MEDS: guaiFENesin 600 MG TABLET.ER PO SCH ×2 (08:20→23:06)
[2017-05-22] MEDS: FUROSEMIDE 40 MG TAB PO SCH ×2 (08:20→23:06)
[2017-05-22] MEDS: methylPREDNISolone SOD SUCCI 40 MG/ML 1 ML VIAL IV SCH (08:20)
[2017-05-22] MEDS: acetaZOLAMIDE 250 MG TAB PO SCH ×2 (08:21→23:06)
[2017-05-22] MEDS: DOCUSATE 100 MG CAP PO SCH (08:21)
[2017-05-22] MEDS: DIGOXIN 125 MCG TAB PO SCH (08:21)
[2017-05-22] MEDS: INSULIN LISPRO (humaLOG) 300 UNIT/3 ML VIAL SQ SCH ×4 (08:21→23:08)
[2017-05-22] MEDS: SODIUM FERRIC GLUCONAT-SUCROSE 125 MG in SODIUM CHLORIDE 0.9% 100 ML IVPB SCH (09:03)
[2017-05-22] MEDS: PIPERACILLIN-TAZOBACTAM 3.375 GM in DEXTROSE/WATER 1 50ML.BAG IVPB SCH ×2 (10:16→16:40)
--- NOTE | 2017-05-22 10:19 | P.PN ---
Subjective Principal diagnosis: 05/02/17 This is a 57-year-old female patient being seen, examined and evaluated. Patient is well-known to our services. This Patient comes in with complaints of shortness of breath that had been increasing over the last few days. The patient does have a significant medical history for CHF, COPD that is severe, chronic persistent asthma but severe, atrial fibrillation, renal insufficiency and liver disease. This patient has a known history for reoccurring pneumonia as well. Patient states she uses 4-5 L of supplemental oxygen at home at all times. Upon examination the patient's resting up in bed on 5 L of supplemental oxygen, she states she has shortness of breath with any minimal exertion as well as extensive conversation. Chest x-ray has been reviewed and shows an increasing right pleural effusion which is associated with atelectasis, possible pulmonary artery hypertension, and congestive heart failure. 05/03/17 upon examination today the patient's resting up in bed and continues to be on 5 L of supplemental oxygen. Patient continues to have shortness of breath with any minimal exertion and extensive conversation. Patient did undergo an ultrasound of the chest yesterday which revealed a right pleural effusion fluid pocket of 10.4 cm this has increased significantly since her last ultrasound of the chest which was done 02/08/2017 which showed a right pleural effusion pocket of 4.2 at that time. During that admission in January the effusion was too small to undergo a thoracentesis. Of note ,since its progression, the patient is a candidate to have the thoracentesis performed in regards to size. However the patient was on Coumadin for chronic A. fib and her INR yesterday was 2.9. Yesterday we discontinued the Coumadin and put the patient on Lovenox in preparation for thoracentesis. A repeat INR was performed today and is currently 3.6. We would like the patient's INR to be closer to 1.4 before we perform the thoracentesis. Repeat labs will be drawn tomorrow. 05/04/17 examination today the patient's resting up in bed and continues on 5 L of supplemental oxygen. Patient states she is a little less short of breath today than previously. However she still continues to have shortness of breath with exertion. Patient's INR today was 3.7, which is still too high to undergo a thoracentesis. Labs have been reviewed. We truly the increase in INR due to the patient being on Levaquin as a side effect. 05/05/17- upon examination today the patient is resting up in bed and continues on the 5 L of supplemental oxygen. The patient's INR today is 1.3 therefore we can go forth with the thoracentesis. The procedure as well as the risk and benefits have been discussed at length with the patient QUESTIONS have been answered. After the thoracentesis is completed the fluid will be sent for lab workup. The patient will be able to start back on her Coumadin tonight. The patient should continue with Lovenox until her INR is more than 1.8. Patient continues to have shortness of breath with exertion. 05/06/17- patient did undergo a thoracentesis yesterday. 1.6 L of clear yellow pleural fluid was removed. It was discovered on the post x-ray at the patient did have a 20% pneumothorax. The patient was asymptomatic at that time. The patient was to be watched closely overnight and have a repeat chest x-ray that evening which was stable and another one this morning which dates show a possible slight increase in the pneumothorax. CT of the chest without contrast was obtained and results are not readily available. We will consult cardiothoracic to follow the patient and interventional radiology to place a pigtail catheter. Upon examination the patient is resting up in bed and despite the pneumothorax the patient states her breathing is better today after having the fluid removed. Patient is still requiring 4-5 L of supplemental oxygen however she said her shortness of breath has decreased. Patient is afebrile no further complaints. 05/07/17 and 05/08/17, please refer to DR. JULIO Gao note, as he covered these days. 05/09/17-upon examination today the patient's resting up in bed on 5 L of supplemental oxygen. Chest x-rays have been reviewed and the patient still has a pneumothorax that has not improved, pneumothorax remains about 30%. Therefore the patient will ultimately require a chest tube placement by interventional radiology. Patient continues to feel short of breath and tight. Today she states she feels slightly worse than yesterday in regards to her breathing. We'll recheck her CBC CMP and PT/INR. Patient has had her Coumadin on hold since pneumothorax and she has been receiving Lovenox. 05/10/17- on examination today the patient has just came back from interventional radiology after pigtail chest tube insertion. There is approximately 300 ML's of serosanguineous drainage noted upon arrival and the pleural VAC has not been attached to suction yet at this time. Patient will be hooked up to wall suction. Patient states that this initially received the chest tube she had immediate relief in her shortness of breath which decreased significantly. Patient states she is breathing much better post procedure. Patient is noted to be sitting up in bed and continues on 5 L of supplemental oxygen. Labs and radiology reports have been reviewed. 05/11/17- upon examination today the patient is resting up in bed and states she feels better today. Patient continues on 5 L of supplemental oxygen. Patient still has her chest tube in and has had approximately 700 ML's of serosanguineous output total since it was inserted. Her appetite has improved slightly as well. Patient states she is much more comfortable today. She continues on IV Solu-Medrol, updrafts and antibiotics. 05/12/17- today the patient is seen resting in bed on 4-5 L of oxygen. The patient states that she continues to have a productive cough with congestion. She is breathing easier with less effort. Appetite continues to improve. Her chest tube shows an output of approximately 875 ML's total output. Continues to be hooked up to suction. States her appetite continues to wax and wane. Chest x-ray from today has been reviewed patient's hydropneumothorax has been improved and remains about 15%. 05/13/17-today the patient seen resting up in bed on 4-5 L of supplemental oxygen via nasal cannula. She continues to have a productive cough with congestion however she states this is slightly improved today. She continues to breathe easier with less effort. Currently she is eating. Her chest tube shows approximately a total of 1100 ML's of serosanguineous drainage. Coumadin is still currently on hold and she is utilizing Lovenox. Chest x-ray is pending. No further complaints no overnight events. She is utilizing her incentive spirometer and pulls volumes of 1750. We will decrease her steroids today. 05/14/17, patient seen and evaluated examined today she is complaining of some shortness of breath and congestion however not producing much sputum her chest x -ray from today has been reviewed very small residual pneumothorax and small effusions seen she has put out another 350 mL in the last 48 hours the pleural VAC in control is adequate chest tube is connected with the 20 cm water of section is doing IS regularly on 4-5 L oxygen with stable oxygenation 05/15/17, patient seen and evaluated examined care plan discussed with the nurse at length critical care time spent 35 minutes chest x-ray from today reviewed the laboratory data reviewed as well care plan discussed with the primary service, patient is complaining of some weakness and tiredness has been congested as well and slightly more short of breath however her chest x-ray looks much improved she had put out more than 300 mL and pleural VAC December chest x-ray from today reveal almost resolution of pneumothorax some reexpansion pulmonary edema in the right lower lobe versus right lower lobe pneumonia cannot be excluded she does have cough but no sputum is coming out she remains on 4 L oxygen, she is being planned for replacement of calcium transfusion of 2 unit packed RBC replacement of potassium and placement of new peripheral IVs antibiotics in the form of IV Zosyn is being started 05/16/17- upon examination today the patient is seen resting up in bed on 5 L of supplemental oxygen. Chest x-ray has been reviewed and does show improvement in the pneumothorax with some reexpansion pulmonary edema in the right lower lobe versus right lower lobe pneumonia cannot be excluded. Patient's electrolytes known to be off therefore nephrology will be consult it. Patient is also being seen by infectious disease and cardiology. Patient's pleural low back continues to be patent and draining serosanguineous fluids. The pleural VAC chamber was changed today at 6 AM. The patient is noted that have 70 ML out between 6 AM and 9 AM. Patient's hemoglobin is stable today at 8.6. No further signs of bleeding. Patient is using her incentive spirometer and pulling volumes of approximately thousand ML. 05/17/17 upon examination the patient is resting up in bed on [address] Hinds did remove the chest tube without complication. Chest x-ray has been obtained postprocedure and shows no complication post chest tube removal, no pneumothorax. Patient has been hemodynamically stable. She is resting more comfortably. Hemoglobin remained stable at 8.6. She denies any pain or discomfort at this time. She continues to be followed by nephrology as well as infectious disease. 05/18/17 upon examination today the patient's resting up in bed on 5 L of supplemental oxygen. Chest tube insertion site noted to have small amount of serosanguineous drainage on the dressing. Chest x-ray has been reviewed and is stable. Labs reviewed. Hemoglobin today is 8.5. Patient had no overnight events no further complaints. 05/19/17- patient is seen and examined today on rounds. Patient continues on 5 L of supplemental oxygen. Chest tube site clean and dry and intact no drainage noted. Patient continues to complain of some congestion however Mucinex is helping. Labs have been reviewed, hemoglobin 7.8 today. Coumadin was restarted yesterday, INR is 1.1. We can discontinue the Lovenox once INR is greater than 2. No overnight events. 05/20/17- patient is being seen in examined and evaluated on rounds today. She continues on supplemental oxygen of 5 L via nasal cannula. Continues with shortness of breath with exertion. Congestion slightly improving. Hemoglobin today is 7.6 CO2 was noted to be 41. Chest x-ray and labs were reviewed. Patient does have a pleural effusion however we will try to medically manage it at this time we do not want to go forth with a thoracentesis at this point. Follow she is on consult and has adjusted medications due to alkalosis related to diuretic induced volume contraction. Patient was placed on Diamox 250 mg twice a day. Electrolytes monitored and being replaced per protocol. 05/21/17 patient's seen and evaluated exam and on fifth floor remains on supplemental oxygen her CO2 was noted to be elevated likely related to multifactorial processes including hypercapnia as well as diuresis she is short of breath but overall stable no chest pain no cough or sputum production remains on broad-spectrum antibiotics patient has been resumed on Coumadin noted chest x-ray revealed reaccumulation of fluid on the right side but no hydropneumothorax has been seen no plans for thoracentesis at this point of time , patient seen and evaluated exam and on fifth floor overall continued to be on supplemental oxygen her respiratory status overall is not much change from baseline get short of breath on activity and exertion denies any chest pain , chest x-ray from today reviewed no pleural effusion is present, basal atelectasis has been demonstrated again versus pneumonia, would recommend to continue deep breathing exercises incentive spirometry and empiric antibiotics Objective - Vital Signs Vital signs: Vital Signs Temp 97.9 F 05/21/17 22:54 Pulse 72 05/22/17 08:11 Resp 18 05/22/17 08:11 BP 116/63 05/22/17 08:11 Pulse Ox 100 05/22/17 08:11 Intake & Output 05/21/17 05/22/17 05/22/17 18:59 06:59 18:59 Intake Total 150 730 Output Total 3025 1999 Balance -6296 -8672 Weight 44.5 kg Intake: IV 150 Piperacillin-Tazobactam 3 50 .375 gm In Dextrose/Water 1 50ml.bag @ 12.5 mls/hr IVPB Q8HR MARY CARMEN Rx#: [id number] Sodium Ferric Gluconat- 100 Sucrose 125 mg In Sodium Chloride 0.9% 100 ml @ 100 mls/hr IVPB DAILY MARY CARMEN Rx#:[id number] Oral 730 Output: Urine 3025 1999 Uretheral ([place]) 3025 1999 Other: Voiding Method Indwelling Catheter Indwelling Catheter Indwelling Catheter - Exam GENERAL EXAM: Alert, cachectic, comfortable in no apparent distress. HEAD: Normocephalic. EYES: Normal reaction of pupils, equal size. NOSE: Clear with pink turbinates. THROAT: No erythema or exudates. NECK: No masses, no JVD. CHEST: No chest wall deformity. LUNGS: Poor air entry is present, scattered rhonchi as well as expiratory wheezes noted throughout. Right-sided pigtail chest tube has been removed dressing is in place. CVS: S1 and S2 normal with no audible mumurs, regular rhythm. ABDOMEN: No hepatosplenomegaly, normal bowel sounds, no guarding or rigidity. EXTREMITIES: Trace edema noted, pedal pulses palpable. SKIN: No rashes, dressing in place to coccyx wound CENTRAL NERVOUS SYSTEM: No focal deficits, tone is normal in all 4 extremities. - Labs CBC & Chem 7: 05/22/17 07:00 05/22/17 07:00 Labs: Abnormal Lab Results - Last 24 Hours (Table) 05/21/17 05/21/17 05/21/17 Range/Units 06:43 11:32 17:37 WBC (3.8-10.6) k/uL RBC (3.80-5.40) m/uL Hgb (11.4-16.0) gm/dL Hct (34.0-46.0) % MCV (80.0-100.0) fL MCH (25.0-35.0) pg MCHC (31.0-37.0) g/dL RDW (11.5-15.5) % Neutrophils # (1.3-7.7) k/uL INR (<1.2) BUN (7-17) mg/dL Glucose (74-99) mg/dL POC Glucose (mg/dL) 286 H 284 H (75-99) mg/dL Iron 245 H (37-170) ug/dL % Saturation 74.7 H (20-50) % Total Protein (6.3-8.2) g/dL Stool Occult Blood (Negative) 05/21/17 05/22/17 05/22/17 Range/Units 21:55 07:00 07:00 WBC 15.5 H (3.8-10.6) k/uL RBC 3.56 L (3.80-5.40) m/uL Hgb 7.6 L (11.4-16.0) gm/dL Hct 26.6 L (34.0-46.0) % MCV 74.7 L (80.0-100.0) fL MCH 21.5 L (25.0-35.0) pg MCHC 28.8 L (31.0-37.0) g/dL RDW 19.9 H (11.5-15.5) % Neutrophils # 11.2 H (1.3-7.7) k/uL INR 1.2 H (<1.2) BUN (7-17) mg/dL Glucose (74-99) mg/dL POC Glucose (mg/dL) (75-99) mg/dL Iron (37-170) ug/dL % Saturation (20-50) % Total Protein (6.3-8.2) g/dL Stool Occult Blood Positive H (Negative) 05/22/17 05/22/17 Range/Units 07:00 07:27 WBC (3.8-10.6) k/uL RBC (3.80-5.40) m/uL Hgb (11.4-16.0) gm/dL Hct (34.0-46.0) % MCV (80.0-100.0) fL MCH (25.0-35.0) pg MCHC (31.0-37.0) g/dL RDW (11.5-15.5) % Neutrophils # (1.3-7.7) k/uL INR (<1.2) BUN 36 H (7-17) mg/dL Glucose 104 H (74-99) mg/dL POC Glucose (mg/dL) 122 H (75-99) mg/dL Iron (37-170) ug/dL % Saturation (20-50) % Total Protein 5.8 L (6.3-8.2) g/dL Stool Occult Blood (Negative) Assessment and Plan Plan: right-sided pleural effusion reaccumulation will monitor all observed Right-sided pneumothorax, resolved Right-sided pleural effusion with right sided pneumonia suspect mixed/gram- negative in nature, on broad-spectrum antibiotics Acute exacerbation of chronic obstructive pulmonary disease Acute on chronic hypoxic respiratory failure Congestive heart failure Probable pulmonary hypertension Atrial fibrillation Chronic anemia Severe protein calorie malnutrition Hypocalcemia Plan Medications have been reviewed and will be continued as ordered. Continue with IV antibiotics. May restart Coumadin, d/c lovenox when INR is greater than 2. Pleural fluid has been sent for lab workup is negative so far. Continue with Solu-Medrol and budesonide as well as Mucinex. Repeat labs in the morning. Cardiology on consult. Infectious disease on consult. Nephrology on consult. Continue with pulmonary hygiene, coughing and deep breathing exercises, and supportive care. Supplemental oxygen to maintain oxygen saturations of 92% or better. Continue nebulizer treatments. GI and DVT prophylaxis. Ensure 3 times a day with meals. We will continue to monitor labs/results and adjust treatment as necessary. Further recommendations pending. Time with Patient: Greater than 30
--- NOTE | 2017-05-22 11:22 | PN ---
The patient is a 57 -year-old pleasant white female, admitted with pneumonia, pleural effusion, status post chest tube placement that has been removed three days ago. Since being in the hospital, she has been having gradual drop in her hemoglobin and hence we are consulted and she was evaluated yesterday. Clinically she does not have any evidence of active bleeding. She denies any abdominal pain. She reports no nausea or vomiting. Tolerating a diet very well. On physical examination, she appears comfortable. No apparent distress. Vital signs were stable. Blood pressure 116/63. Pulse 72. Temperature 98. HEENT examination unremarkable. Conjunctivae pink. Sclerae anicteric. Oral cavity no lesions. Neck no JVD or lymph node enlargement. Chest is clear to auscultation. Heart is regular rate and rhythm. Abdomen is soft. Nontender. Nondistended. Liver and spleen were not palpable. Bowel sounds were positive. No organomegaly. Extremities: No pedal edema. Skin: No rashes. Neurological: She is alert and oriented times three. No focal deficits. Labs done today: Hemoglobin 7.6. WBC 10.5. Platelets 167. Stool occult blood positive. Iron indices show serum iron 33. TIBC 1318, iron saturation 10.4% and Ferritin 195. IMPRESSION: 1. Microcytic anemia but iron indices does not reflect any iron deficiency. Most likely we are dealing with anemia of chronic disease. Currently her hemoglobin remains stable at 7.6 gmDL. 2. Pneumonia/pleural effusion status post chest tube placement that has been removed three days ago gradually improving. RECOMMENDATIONS: Since her hemoglobin is stable, I will not plan on any endoscopic intervention during this hospitalization. I did suggest to the patient that she follow up in the office following discharge from the hospital and we can plan on colonoscopy when she is more stable on an outpatient basis. At this time, we will sign off. Thank you for this consultation. [facility]
[2017-05-22 11:28] LABS: Glucose,Whole Blood 281 mg/dL (75-99)
[2017-05-22] MEDS ORDERED: methylPREDNISolone SOD SUCCI 40 MG/ML 1 ML VIAL IV STA (11:34)
--- NOTE | 2017-05-22 12:15 | P.PN ---
Subjective Dictation by Dr. Ant Wiggins [facility] date of service 05/22/2017. Patient of Dr. Eubanks. Discussed with the patient and her the current illness and the need for long-term long term. However the decision is hers and his. Patient received iron infusion per Dr. Albarado. Her hemoglobin today still no change. EKG indicating atrial fibrillation, subtherapeutic anticoagulation. Despite that patient on Lovenox as well as 2 mg of Coumadin and antibiotic still subtherapeutic. We'll increase her warfarin to 5 mg every afternoon and discontinue the Lovenox. Patient has long days during her presence in the hospital on the steroid which cause increased white count and and close suspicious of infection which and the culture was negative. We will DC the Solu-Medrol and start prednisone. We'll DC the Burgos catheter and obtain bladder scan every 6 hour when necessary. We'll obtain computed tomography scan of the chest and abdomen with the underlying history of positive stool for Hemoccult and also seen by gastroenterology. Patient discussed with her the future planning for discharge Her vital signs stable pressure 116/63 with a mean 80, nasal cannula 3 L and she is 100% saturation her pulse rate is 72 and she is afebrile. Patient appeared older than his stated age. No change of the physical examination today, she is pale HEENT was negative and skin has area of depigmentation. The neck was supple no JVD. Chest is increased anteroposterior diameter history of right pleural effusion. Status post thoracentesis with the results no infection. Admitted with possibility of recurrent pneumonia on antibiotic, chest x-ray with decubitus was not conclusive I did reviewed by myself and appeared to be fibrosis more than pneumonitis or atelectasis with the shortness of breath of minimal exertion. Heart presence of murmur with cardiomegaly and she has underlying mitral stenosis as well as tricuspid regurg. Abdomen mild distention and vague discomfort and unclear issue of the history of rectal bleeding. Extremities no edema however she has been on Lasix 40 mg twice a day because of the effusion. Her renal function currently stable with the estimated glomerular filtration rate for non- more than 60 indicating the possibility of kidney disease only restricted to stage II or stage I. Assessment: #1 multiple medical problem #2 pulmonary fibrosis #3 COPD and severe persistent asthma steroid dependent with chronic leukocytosis #4 chronic pain syndrome and narcotic dependent. #5 severe exertion dyspnea associated with severe mitral stenosis #6 frequent urination with the patient requested to keep the Burgos catheter on admission and subsequently however today will discontinue the Burgos catheter with the use of bladder scan Plan: Refer to the order and changing HER medication has been placed in the computer by myself. #2 we will be obtaining computed tomography scan without contrast of the chest and or for further evaluation and plan for discharge home in 24-48 hours. It depend on the patient request for long term long-term or going home with the help of the social work specialist is patient had difficulties to be going home because no place to live. Objective - Vital Signs Vital signs: Vital Signs Temp 97.9 F 05/21/17 22:54 Pulse 72 05/22/17 11:39 Resp 18 05/22/17 08:11 BP 116/63 05/22/17 08:11 Pulse Ox 100 05/22/17 08:11 Intake & Output 05/21/17 05/22/17 05/22/17 18:59 06:59 18:59 Intake Total 150 730 Output Total 3025 1999 Balance -2875 -1270 Weight 44.5 kg Intake: IV 150 Piperacillin-Tazobactam 3 50 .375 gm In Dextrose/Water 1 50ml.bag @ 12.5 mls/hr IVPB Q8HR MARY CARMEN Rx#: [id number] Sodium Ferric Gluconat- 100 Sucrose 125 mg In Sodium Chloride 0.9% 100 ml @ 100 mls/hr IVPB DAILY MARY CARMEN Rx#:[id number] Oral 730 Output: Urine 3025 1999 Uretheral (Burgos) 3025 1999 Other: Voiding Method Indwelling Catheter Indwelling Catheter Indwelling Catheter - Labs CBC & Chem 7: 05/22/17 07:00 05/22/17 07:00 Labs: Abnormal Lab Results - Last 24 Hours (Table) 05/21/17 05/21/17 05/22/17 Range/Units 17:37 21:55 07:00 WBC 15.5 H (3.8-10.6) k/uL RBC 3.56 L (3.80-5.40) m/uL Hgb 7.6 L (11.4-16.0) gm/dL Hct 26.6 L (34.0-46.0) % MCV 74.7 L (80.0-100.0) fL MCH 21.5 L (25.0-35.0) pg MCHC 28.8 L (31.0-37.0) g/dL RDW 19.9 H (11.5-15.5) % Neutrophils # 11.2 H (1.3-7.7) k/uL INR (<1.2) BUN (7-17) mg/dL Glucose (74-99) mg/dL POC Glucose (mg/dL) 284 H (75-99) mg/dL Total Protein (6.3-8.2) g/dL Stool Occult Blood Positive H (Negative) 05/22/17 05/22/17 05/22/17 Range/Units 07:00 07:00 07:27 WBC (3.8-10.6) k/uL RBC (3.80-5.40) m/uL Hgb (11.4-16.0) gm/dL Hct (34.0-46.0) % MCV (80.0-100.0) fL MCH (25.0-35.0) pg MCHC (31.0-37.0) g/dL RDW (11.5-15.5) % Neutrophils # (1.3-7.7) k/uL INR 1.2 H (<1.2) BUN 36 H (7-17) mg/dL Glucose 104 H (74-99) mg/dL POC Glucose (mg/dL) 122 H (75-99) mg/dL Total Protein 5.8 L (6.3-8.2) g/dL Stool Occult Blood (Negative) 05/22/17 Range/Units 11:26 WBC (3.8-10.6) k/uL RBC (3.80-5.40) m/uL Hgb (11.4-16.0) gm/dL Hct (34.0-46.0) % MCV (80.0-100.0) fL MCH (25.0-35.0) pg MCHC (31.0-37.0) g/dL RDW (11.5-15.5) % Neutrophils # (1.3-7.7) k/uL INR (<1.2) BUN (7-17) mg/dL Glucose (74-99) mg/dL POC Glucose (mg/dL) 281 H (75-99) mg/dL Total Protein (6.3-8.2) g/dL Stool Occult Blood (Negative)
[2017-05-22] MEDS: FERROUS SULFATE 325 MG TAB PO SCH (12:39)
[2017-05-22] MEDS: ALPRAZolam 0.25 MG TAB PO PRN (13:14)
[2017-05-22 17:31] LABS: Glucose,Whole Blood 202 mg/dL (75-99)
[2017-05-22] MEDS: WARFARIN 5 MG TAB PO SCH (17:41)
[2017-05-22 20:40] LABS: Glucose,Whole Blood 236 mg/dL (75-99)
[2017-05-22] MEDS: MONTELUKAST 10 MG TAB PO SCH (23:06)
[2017-05-22] MEDS: traZODone HCL 50 MG TAB PO SCH (23:06)
[2017-05-22] MEDS: ATORVASTATIN 40 MG TAB PO SCH (23:06)
[2017-05-22] MEDS: ALPRAZolam 0.5 MG TAB PO PRN (23:34)
[2017-05-22] MEDS: HYDROmorphone 1 MG/ML 1 ML SYRINGE IVP SCH (23:34)
[2017-05-23] MEDS: PIPERACILLIN-TAZOBACTAM 3.375 GM in DEXTROSE/WATER 1 50ML.BAG IVPB SCH ×3 (00:56→15:21)
[2017-05-23 00:57] LABS: Glucose,Whole Blood 89 mg/dL (75-99)
[2017-05-23] MEDS: HYDROcodone/APAP 10-325MG 1 EACH TAB PO PRN ×3 (01:24→16:24)
[2017-05-23] MEDS: HYDROmorphone 1 MG/ML 1 ML SYRINGE IVP PRN ×3 (05:39→21:20)
[2017-05-23] MEDS: BUDESONIDE 0.5 MG/2 ML NEBU INHALATION SCH ×2 (07:18→20:08)
[2017-05-23] MEDS: IPRATROPIUM-ALBUTEROL 3 ML NEB INHALATION SCH ×4 (07:18→20:08)
[2017-05-23 07:34] LABS: INR 1.5 (<1.2); Prothrombin Time 14.2 sec (9.0-12.0)
[2017-05-23 07:43] LABS: Glucose,Whole Blood 128 mg/dL (75-99)
[2017-05-23 07:43] LABS: ALT 42 U/L (9-52); AST 22 U/L (14-36); Alkaline Phosphatase 85 U/L (38-126); Anion Gap 9 mmol/L; Blood Urea Nitrogen 43 mg/dL (7-17); Calcium 8.8 mg/dL (8.4-10.2); Carbon Dioxide 29 mmol/L (22-30); Chloride 98 mmol/L (98-107); Glucose 91 mg/dL (74-99); Non-African American GFR(MDRD) >60 (>60 ml/min/1.73 sqM); Potassium 3.6 mmol/L (3.5-5.1); Sodium 136 mmol/L (137-145); Total Bilirubin 0.6 mg/dL (0.2-1.3); Total Protein 5.7 g/dL (6.3-8.2)
[2017-05-23] MEDS: predniSONE 20 MG TAB PO SCH (07:49)
[2017-05-23] MEDS: DIGOXIN 125 MCG TAB PO SCH (07:51)
[2017-05-23] MEDS: POTASSIUM CHLORIDE ER 10 MEQ TAB.ER.PRT PO SCH (07:51)
[2017-05-23] MEDS: acetaZOLAMIDE 250 MG TAB PO SCH (07:51)
[2017-05-23] MEDS: guaiFENesin 600 MG TABLET.ER PO SCH ×2 (07:51→20:33)
[2017-05-23] MEDS: FUROSEMIDE 40 MG TAB PO SCH ×2 (07:51→20:33)
[2017-05-23] MEDS: DOCUSATE 100 MG CAP PO SCH (07:51)
[2017-05-23] MEDS: INSULIN LISPRO (humaLOG) 300 UNIT/3 ML VIAL SQ SCH ×4 (07:52→20:33)
[2017-05-23 07:56] LABS: Anisocytosis Slight; Basophils % (A) 0 %; CH 20.8; CHCM 27.7; Eosinophils # (A) 0.1 k/uL (0-0.7); Eosinophils % (A) 1 %; HCT 24.2 % (34.0-46.0); HDW 3.53; Hypochromasia Marked; Luc # (Auto) 0.27; Luc % (Auto) 1; Lymphocytes # (A) 2.6 k/uL (1.0-4.8); Lymphocytes % (A) 13 %; MCH 21.6 pg (25.0-35.0); MCHC 28.7 g/dL (31.0-37.0); MCV 75.3 fL (80.0-100.0); Mean Platelet Volume 7.4; Microcytosis Moderate; Monocytes # (A) 0.8 k/uL (0-1.0); Monocytes % (A) 4 %; Neutrophils # (A) 15.7 k/uL (1.3-7.7); Neutrophils % (A) 81 %; Poikilocytosis Slight; RBC 3.22 m/uL (3.80-5.40); RDW 19.8 % (11.5-15.5); WBC 19.5 k/uL (3.8-10.6); WBC (Perox) 19.22
[2017-05-23] MEDS: SODIUM FERRIC GLUCONAT-SUCROSE 125 MG in SODIUM CHLORIDE 0.9% 100 ML IVPB SCH (08:29)
--- NOTE | 2017-05-23 09:09 | CT ---
EXAMINATION TYPE: CT chest abdomen wo con DATE OF EXAM: 05/23/2017 COMPARISON: CT thorax dated 05/06/2017. CT abdomen dated 09/06/2016. HISTORY: Weakness and generalized pain. Pulmonary fibrosis and melena or hematochezia. CT DLP: 550 mGycm Automated exposure control for dose reduction was used. FINDINGS: Lack of intravenous contrast limits the evaluation. CHEST: A subsolid 7.5 mm nodule is seen within the right upper lobe on series 4 image 24. The central solid nodular component measures 2 mm and surrounding groundglass measures up to 7 mm. Cylindrical b ronchiectasis is seen within the right middle lobe with focal pleural thickening, loculated portion o f the small right pleural effusion and a distal wedge-shaped focal consolidation. Focal reticulonodular tree-in-bud opacities are seen within the posterior basilar segment of the left lower lobe as well as to a lesser degree within the subpleural and more central right lower lobe on series 4 image 49 through 55. At the superior aspect of a pleural parenchymal scar within the left lo wer lobe there is an elongated density containing fluid centrally measuring up to 2.0 cm. This may re present a loculated component of fluid versus less likely central necrosis within an elongated pulmon ab lesion. Punctate right middle lobe calcified granuloma and 2 mm noncalcified right lower lobe pul monary nodule are present. Scattered areas of subsegmental atelectasis are seen dependently. Pleural thickening along the left major fissure is seen from prior rib fracture. No sequela of pulmonary fibr osis is seen on CT. Few scattered blebs are noted. Main pulmonary artery is enlarged measuring up to 4.1 cm, mitral may represent underlying pulmonary a rterial hypertension. There is right atrial enlargement and engorgement of the inferior vena cava/hep atic vessels which may relate to underlying right heart failure. Coronary artery calcifications and m itral annulus calcifications are noted as well as left ventricular apical calcification, likely relat ed to prior infarct/aneurysm sequela of prior pericarditis. Rib deformity of the left lateral aspect of rib 5 is seen from prior fracture. No suspicious osseous lesion. ABDOMEN: There is a cirrhotic morphology of the liver with a nodular contour. Residual linear area of hypoatte nuation within the anterior spleen and calcifications likely represent sequela of infarct. A moderate amount of stool seen within the colon. The unenhanced adrenal glands, kidneys, and pancreas are kayla sly unremarkable. Few punctate calculi are seen within the gallbladder lumen dependently. Calcific at heromatous changes are seen of the visualized abdominal aorta and its branches. Punctate foci of subc utaneous air and subcutaneous nodules of the anterior abdominal wall may relate to injection sites. D egree of anasarca has decreased from the prior examination. Mild degenerative changes are appreciated of the visualized thoracolumbar spine. IMPRESSION: 1. RESOLUTION OF THE PREVIOUSLY SEEN RIGHT PNEUMOTHORAX WITH RESIDUAL RIGHT MIDDLE LOBE FOCAL OPACITY , WHICH MAY REPRESENT ATELECTASIS OR INFECTIOUS ETIOLOGY IN THE APPROPRIATE CLINICAL SETTING. 2. BIBASILAR RETICULAR TREE-IN-BUD OPACITIES, MOST COMMONLY RELATING TO BRONCHIOLITIS OF INFLAMMATORY OR INFECTIOUS ETIOLOGY. 3. SMALL RIGHT PLEURAL EFFUSION AND LIKELY LOCULATED TRACE LEFT PLEURAL EFFUSION AT THE SUPERIOR ASPE CT OF A PLEURAL PARENCHYMAL SCAR. 4. ENLARGEMENT OF THE MAIN PULMONARY ARTERY, WHICH MAY CLINICALLY CORRELATE WITH PULMONARY ARTERIAL HYPERTENSION. 5. FINDINGS SUGGESTIVE OF RIGHT HEART FAILURE. 6. MODERATE AMOUNT OF RETAINED STOOL WITH NO OBSTRUCTIVE PROCESS. 7. CIRRHOTIC MORPHOLOGY OF THE LIVER. 8. SPLENIC FINDINGS MOST LIKELY RELATING TO SEQUELA OF PRIOR INFARCTS.
--- NOTE | 2017-05-23 09:21 | P.PN ---
Subjective Patient is seen in follow-up for hypocalcemia. Her calcium level did drop down to 6.4, however the corrected calcium was near 8. Calcium level has been stable the last few days with no evidence of hypocalcemia. She is currently sitting up in bed. Denies chest pain or shortness of breath. Admits to good urine output. No vomiting or diarrhea. She was noted to be alkalotic and was started on Diamox. Her bicarb level is down to 29 today. Vital signs are stable. General: The patient appeared well nourished and normally developed. HEENT: Head exam is unremarkable. Neck is without jugular venous distension. LUNGS: Lungs are clear to auscultation and percussion. Breath sounds decreased. HEART: Rate and Rhythm are regular. First and second heart sounds normal. No murmurs, rubs or gallops. ABDOMEN: Abdominal exam reveals normal bowel sounds. Non-tender and non- distended. No evidence of peritonitis. EXTREMITITES: No clubbing, cyanosis, or edema. Objective - Vital Signs Vital signs: Vital Signs Temp 97.1 F L 05/23/17 07:20 Pulse 88 05/23/17 07:30 Resp 18 05/23/17 07:20 BP 114/61 05/23/17 07:20 Pulse Ox 100 05/23/17 07:20 Intake & Output 05/22/17 05/23/17 05/23/17 18:59 06:59 18:59 Intake Total 1730 Output Total 1000 Balance -1000 1730 Weight 44 kg Intake: IV 180 0.9 80 Piperacillin-Tazobactam 3 100 .375 gm In Dextrose/Water 1 50ml.bag @ 12.5 mls/hr IVPB Q8HR MARY CARMEN Rx#: [id number] Oral 1550 Output: Urine 1000 Uretheral (Burgos) 1000 Other: Voiding Method Indwelling Catheter Bedside Commode # Voids 5 # Bowel Movements 1 - Labs CBC & Chem 7: 05/23/17 06:58 05/23/17 06:58 Labs: Abnormal Lab Results - Last 24 Hours (Table) 05/21/17 05/22/17 05/22/17 Range/Units 06:43 11:26 17:30 WBC (3.8-10.6) k/uL RBC (3.80-5.40) m/uL Hgb (11.4-16.0) gm/dL Hct (34.0-46.0) % MCV (80.0-100.0) fL MCH (25.0-35.0) pg MCHC (31.0-37.0) g/dL RDW (11.5-15.5) % Neutrophils # (1.3-7.7) k/uL PT (9.0-12.0) sec INR (<1.2) Sodium (137-145) mmol/L BUN (7-17) mg/dL POC Glucose (mg/dL) 281 H 202 H (75-99) mg/dL Total Protein (6.3-8.2) g/dL Vitamin D 25-Hydroxy 26.7 L (30.0-100.0) ng/mL 05/22/17 05/23/17 05/23/17 Range/Units 20:38 06:58 06:58 WBC 19.5 H (3.8-10.6) k/uL RBC 3.22 L (3.80-5.40) m/uL Hgb 7.0 L* (11.4-16.0) gm/dL Hct 24.2 L (34.0-46.0) % MCV 75.3 L (80.0-100.0) fL MCH 21.6 L (25.0-35.0) pg MCHC 28.7 L (31.0-37.0) g/dL RDW 19.8 H (11.5-15.5) % Neutrophils # 15.7 H (1.3-7.7) k/uL PT 14.2 H (9.0-12.0) sec INR 1.5 H (<1.2) Sodium (137-145) mmol/L BUN (7-17) mg/dL POC Glucose (mg/dL) 236 H (75-99) mg/dL Total Protein (6.3-8.2) g/dL Vitamin D 25-Hydroxy (30.0-100.0) ng/mL 05/23/17 05/23/17 Range/Units 06:58 07:14 WBC (3.8-10.6) k/uL RBC (3.80-5.40) m/uL Hgb (11.4-16.0) gm/dL Hct (34.0-46.0) % MCV (80.0-100.0) fL MCH (25.0-35.0) pg MCHC (31.0-37.0) g/dL RDW (11.5-15.5) % Neutrophils # (1.3-7.7) k/uL PT (9.0-12.0) sec INR (<1.2) Sodium 136 L (137-145) mmol/L BUN 43 H (7-17) mg/dL POC Glucose (mg/dL) 128 H (75-99) mg/dL Total Protein 5.7 L (6.3-8.2) g/dL Vitamin D 25-Hydroxy (30.0-100.0) ng/mL Assessment and Plan Plan: Assessment: #1. Hypocalcemia. Calcium level was 6.4 and May 15 with an albumin level of 2.1. Her corrected calcium was near 8.0. She did receive IV calcium gluconate 2 g on May 15 and calcium level as of yesterday was 8.7 and albumin level is 3.1. She is also maintained on Loop diuretics which can lead to urinary calcium wasting. Additionally she received blood transfusion on May 15 which can lead to hypocalcemia due to chelation from citrate. PTH was appropriately elevated. Vitamin D level noted to be low. Magnesium replete. 1,25-D3 level normal. #2. Right-sided pleural effusion status post thoracentesis and chest tube placement, maintained on Lasix 40 mg twice daily. #3. Acute anemia status post packed red blood cell transfusion. Hemoglobin 7.0 today. Iron deficiency noted - status post 3 doses of IV iron. #4. Pneumonia. Sputum culture positive for Corynebacterium. #5. Metabolic alkalosis secondary to diuretic induced volume contraction. Improved. Plan: Continue Drisdol 50,000 units weekly. Repeat electrolytes in the morning. Discontinue Diamox.
[2017-05-23 10:59] LABS: Digoxin 1.2 ng/mL
--- NOTE | 2017-05-23 11:39 | P.PN ---
Subjective 05/02/17 This is a 57-year-old female patient being seen, examined and evaluated. Patient is well-known to our services. This Patient comes in with complaints of shortness of breath that had been increasing over the last few days. The patient does have a significant medical history for CHF, COPD that is severe, chronic persistent asthma but severe, atrial fibrillation, renal insufficiency and liver disease. This patient has a known history for reoccurring pneumonia as well. Patient states she uses 4-5 L of supplemental oxygen at home at all times. Upon examination the patient's resting up in bed on 5 L of supplemental oxygen, she states she has shortness of breath with any minimal exertion as well as extensive conversation. Chest x-ray has been reviewed and shows an increasing right pleural effusion which is associated with atelectasis, possible pulmonary artery hypertension, and congestive heart failure. 05/03/17 upon examination today the patient's resting up in bed and continues to be on 5 L of supplemental oxygen. Patient continues to have shortness of breath with any minimal exertion and extensive conversation. Patient did undergo an ultrasound of the chest yesterday which revealed a right pleural effusion fluid pocket of 10.4 cm this has increased significantly since her last ultrasound of the chest which was done 02/08/2017 which showed a right pleural effusion pocket of 4.2 at that time. During that admission in January the effusion was too small to undergo a thoracentesis. Of note ,since its progression, the patient is a candidate to have the thoracentesis performed in regards to size. However the patient was on Coumadin for chronic A. fib and her INR yesterday was 2.9. Yesterday we discontinued the Coumadin and put the patient on Lovenox in preparation for thoracentesis. A repeat INR was performed today and is currently 3.6. We would like the patient's INR to be closer to 1.4 before we perform the thoracentesis. Repeat labs will be drawn tomorrow. 05/04/17 examination today the patient's resting up in bed and continues on 5 L of supplemental oxygen. Patient states she is a little less short of breath today than previously. However she still continues to have shortness of breath with exertion. Patient's INR today was 3.7, which is still too high to undergo a thoracentesis. Labs have been reviewed. We truly the increase in INR due to the patient being on Levaquin as a side effect. 05/05/17- upon examination today the patient is resting up in bed and continues on the 5 L of supplemental oxygen. The patient's INR today is 1.3 therefore we can go forth with the thoracentesis. The procedure as well as the risk and benefits have been discussed at length with the patient QUESTIONS have been answered. After the thoracentesis is completed the fluid will be sent for lab workup. The patient will be able to start back on her Coumadin tonight. The patient should continue with Lovenox until her INR is more than 1.8. Patient continues to have shortness of breath with exertion. 05/06/17- patient did undergo a thoracentesis yesterday. 1.6 L of clear yellow pleural fluid was removed. It was discovered on the post x-ray at the patient did have a 20% pneumothorax. The patient was asymptomatic at that time. The patient was to be watched closely overnight and have a repeat chest x-ray that evening which was stable and another one this morning which dates show a possible slight increase in the pneumothorax. CT of the chest without contrast was obtained and results are not readily available. We will consult cardiothoracic to follow the patient and interventional radiology to place a pigtail catheter. Upon examination the patient is resting up in bed and despite the pneumothorax the patient states her breathing is better today after having the fluid removed. Patient is still requiring 4-5 L of supplemental oxygen however she said her shortness of breath has decreased. Patient is afebrile no further complaints. 05/07/17 and 05/08/17, please refer to DR. JULIO Gao note, as he covered these days. 05/09/17-upon examination today the patient's resting up in bed on 5 L of supplemental oxygen. Chest x-rays have been reviewed and the patient still has a pneumothorax that has not improved, pneumothorax remains about 30%. Therefore the patient will ultimately require a chest tube placement by interventional radiology. Patient continues to feel short of breath and tight. Today she states she feels slightly worse than yesterday in regards to her breathing. We'll recheck her CBC CMP and PT/INR. Patient has had her Coumadin on hold since pneumothorax and she has been receiving Lovenox. 05/10/17- on examination today the patient has just came back from interventional radiology after pigtail chest tube insertion. There is approximately 300 ML's of serosanguineous drainage noted upon arrival and the pleural VAC has not been attached to suction yet at this time. Patient will be hooked up to wall suction. Patient states that this initially received the chest tube she had immediate relief in her shortness of breath which decreased significantly. Patient states she is breathing much better post procedure. Patient is noted to be sitting up in bed and continues on 5 L of supplemental oxygen. Labs and radiology reports have been reviewed. 05/11/17- upon examination today the patient is resting up in bed and states she feels better today. Patient continues on 5 L of supplemental oxygen. Patient still has her chest tube in and has had approximately 700 ML's of serosanguineous output total since it was inserted. Her appetite has improved slightly as well. Patient states she is much more comfortable today. She continues on IV Solu-Medrol, updrafts and antibiotics. 05/12/17- today the patient is seen resting in bed on 4-5 L of oxygen. The patient states that she continues to have a productive cough with congestion. She is breathing easier with less effort. Appetite continues to improve. Her chest tube shows an output of approximately 875 ML's total output. Continues to be hooked up to suction. States her appetite continues to wax and wane. Chest x-ray from today has been reviewed patient's hydropneumothorax has been improved and remains about 15%. 05/13/17-today the patient seen resting up in bed on 4-5 L of supplemental oxygen via nasal cannula. She continues to have a productive cough with congestion however she states this is slightly improved today. She continues to breathe easier with less effort. Currently she is eating. Her chest tube shows approximately a total of 1100 ML's of serosanguineous drainage. Coumadin is still currently on hold and she is utilizing Lovenox. Chest x-ray is pending. No further complaints no overnight events. She is utilizing her incentive spirometer and pulls volumes of 1750. We will decrease her steroids today. 05/14/17, patient seen and evaluated examined today she is complaining of some shortness of breath and congestion however not producing much sputum her chest x -ray from today has been reviewed very small residual pneumothorax and small effusions seen she has put out another 350 mL in the last 48 hours the pleural VAC in control is adequate chest tube is connected with the 20 cm water of section is doing IS regularly on 4-5 L oxygen with stable oxygenation 05/15/17, patient seen and evaluated examined care plan discussed with the nurse at length critical care time spent 35 minutes chest x-ray from today reviewed the laboratory data reviewed as well care plan discussed with the primary service, patient is complaining of some weakness and tiredness has been congested as well and slightly more short of breath however her chest x-ray looks much improved she had put out more than 300 mL and pleural VAC December chest x-ray from today reveal almost resolution of pneumothorax some reexpansion pulmonary edema in the right lower lobe versus right lower lobe pneumonia cannot be excluded she does have cough but no sputum is coming out she remains on 4 L oxygen, she is being planned for replacement of calcium transfusion of 2 unit packed RBC replacement of potassium and placement of new peripheral IVs antibiotics in the form of IV Zosyn is being started 05/16/17- upon examination today the patient is seen resting up in bed on 5 L of supplemental oxygen. Chest x-ray has been reviewed and does show improvement in the pneumothorax with some reexpansion pulmonary edema in the right lower lobe versus right lower lobe pneumonia cannot be excluded. Patient's electrolytes known to be off therefore nephrology will be consult it. Patient is also being seen by infectious disease and cardiology. Patient's pleural low back continues to be patent and draining serosanguineous fluids. The pleural VAC chamber was changed today at 6 AM. The patient is noted that have 70 ML out between 6 AM and 9 AM. Patient's hemoglobin is stable today at 8.6. No further signs of bleeding. Patient is using her incentive spirometer and pulling volumes of approximately thousand ML. 05/17/17 upon examination the patient is resting up in bed on [address] of [address] oxygen[address] Hinds did remove the chest tube without complication. Chest x-ray has been obtained postprocedure and shows no complication post chest tube removal, no pneumothorax. Patient has been hemodynamically stable. She is resting more comfortably. Hemoglobin remained stable at 8.6. She denies any pain or discomfort at this time. She continues to be followed by nephrology as well as infectious disease. 05/18/17 upon examination today the patient's resting up in bed on 5 L of supplemental oxygen. Chest tube insertion site noted to have small amount of serosanguineous drainage on the dressing. Chest x-ray has been reviewed and is stable. Labs reviewed. Hemoglobin today is 8.5. Patient had no overnight events no further complaints. 05/19/17- patient is seen and examined today on rounds. Patient continues on 5 L of supplemental oxygen. Chest tube site clean and dry and intact no drainage noted. Patient continues to complain of some congestion however Mucinex is helping. Labs have been reviewed, hemoglobin 7.8 today. Coumadin was restarted yesterday, INR is 1.1. We can discontinue the Lovenox once INR is greater than 2. No overnight events. 05/20/17- patient is being seen in examined and evaluated on rounds today. She continues on supplemental oxygen of 5 L via nasal cannula. Continues with shortness of breath with exertion. Congestion slightly improving. Hemoglobin today is 7.6 CO2 was noted to be 41. Chest x-ray and labs were reviewed. Patient does have a pleural effusion however we will try to medically manage it at this time we do not want to go forth with a thoracentesis at this point. Follow she is on consult and has adjusted medications due to alkalosis related to diuretic induced volume contraction. Patient was placed on Diamox 250 mg twice a day. Electrolytes monitored and being replaced per protocol. 05/21/17 patient's seen and evaluated exam and on fifth floor remains on supplemental oxygen her CO2 was noted to be elevated likely related to multifactorial processes including hypercapnia as well as diuresis she is short of breath but overall stable no chest pain no cough or sputum production remains on broad-spectrum antibiotics patient has been resumed on Coumadin noted chest x-ray revealed reaccumulation of fluid on the right side but no hydropneumothorax has been seen no plans for thoracentesis at this point of time 05/22/17, patient seen and evaluated exam and on fifth floor overall continued to be on supplemental oxygen her respiratory status overall is not much change from baseline get short of breath on activity and exertion denies any chest pain , chest x-ray from today reviewed no pleural effusion is present, basal atelectasis has been demonstrated again versus pneumonia, would recommend to continue deep breathing exercises incentive spirometry and empiric antibiotics 05/23/17 is being seen in evaluated and examined today on rounds. Patient continues on 3-4 L of supplemental oxygen today. She continues to have shortness of breath with activity or exertion. Patient's labs have been reviewed for the day the patient is noted to have a hemoglobin of 7.0. The patient is getting 1 unit of packed red blood cells for transfusion. No overt signs and symptoms of bleeding noted. Patient states she feels tired and weak today. Continues to have mild cough and congestion. Objective - Vital Signs Vital signs: Vital Signs Temp 97.1 F L 05/23/17 07:20 Pulse 76 05/23/17 11:05 Resp 18 05/23/17 07:20 BP 114/61 05/23/17 07:20 Pulse Ox 100 05/23/17 07:20 Intake & Output 05/22/17 05/23/17 05/23/17 18:59 06:59 18:59 Intake Total 1730 0 Output Total 1000 Balance -1000 1730 0 Weight 44 kg Intake: IV 180 0.9 80 Piperacillin-Tazobactam 3 100 .375 gm In Dextrose/Water 1 50ml.bag @ 12.5 mls/hr IVPB Q8HR MARY CARMEN Rx#: [id number] Oral 1550 Blood Product 0 Rc Pheresis As-3 Unit 0 [id number] Output: Urine 1000 Uretheral ([place]) 1000 Other: Voiding Method Indwelling Catheter Bedside Commode # Voids 5 # Bowel Movements 1 - Exam GENERAL EXAM: Alert, cachectic, comfortable in no apparent distress. HEAD: Normocephalic. EYES: Normal reaction of pupils, equal size. NOSE: Clear with pink turbinates. THROAT: No erythema or exudates. NECK: No masses, no JVD. CHEST: No chest wall deformity. LUNGS: Poor air entry is present, scattered rhonchi as well as expiratory wheezes noted throughout. Right-sided pigtail chest tube has been removed dressing is in place. CVS: S1 and S2 normal with no audible mumurs, regular rhythm. ABDOMEN: No hepatosplenomegaly, normal bowel sounds, no guarding or rigidity. EXTREMITIES: Trace edema noted, pedal pulses palpable. SKIN: No rashes, dressing in place to coccyx wound CENTRAL NERVOUS SYSTEM: No focal deficits, tone is normal in all 4 extremities. - Labs CBC & Chem 7: 05/23/17 06:58 05/23/17 06:58 Labs: Abnormal Lab Results - Last 24 Hours (Table) 05/21/17 05/22/17 05/22/17 Range/Units 06:43 17:30 20:38 WBC (3.8-10.6) k/uL RBC (3.80-5.40) m/uL Hgb (11.4-16.0) gm/dL Hct (34.0-46.0) % MCV (80.0-100.0) fL MCH (25.0-35.0) pg MCHC (31.0-37.0) g/dL RDW (11.5-15.5) % Neutrophils # (1.3-7.7) k/uL PT (9.0-12.0) sec INR (<1.2) Sodium (137-145) mmol/L BUN (7-17) mg/dL POC Glucose (mg/dL) 202 H 236 H (75-99) mg/dL Total Protein (6.3-8.2) g/dL Vitamin D 25-Hydroxy 26.7 L (30.0-100.0) ng/mL Crossmatch 05/23/17 05/23/17 05/23/17 Range/Units 06:58 06:58 06:58 WBC 19.5 H (3.8-10.6) k/uL RBC 3.22 L (3.80-5.40) m/uL Hgb 7.0 L* (11.4-16.0) gm/dL Hct 24.2 L (34.0-46.0) % MCV 75.3 L (80.0-100.0) fL MCH 21.6 L (25.0-35.0) pg MCHC 28.7 L (31.0-37.0) g/dL RDW 19.8 H (11.5-15.5) % Neutrophils # 15.7 H (1.3-7.7) k/uL PT 14.2 H (9.0-12.0) sec INR 1.5 H (<1.2) Sodium 136 L (137-145) mmol/L BUN 43 H (7-17) mg/dL POC Glucose (mg/dL) (75-99) mg/dL Total Protein 5.7 L (6.3-8.2) g/dL Vitamin D 25-Hydroxy (30.0-100.0) ng/mL Crossmatch 05/23/17 05/23/17 Range/Units 07:14 09:00 WBC (3.8-10.6) k/uL RBC (3.80-5.40) m/uL Hgb (11.4-16.0) gm/dL Hct (34.0-46.0) % MCV (80.0-100.0) fL MCH (25.0-35.0) pg MCHC (31.0-37.0) g/dL RDW (11.5-15.5) % Neutrophils # (1.3-7.7) k/uL PT (9.0-12.0) sec INR (<1.2) Sodium (137-145) mmol/L BUN (7-17) mg/dL POC Glucose (mg/dL) 128 H (75-99) mg/dL Total Protein (6.3-8.2) g/dL Vitamin D 25-Hydroxy (30.0-100.0) ng/mL Crossmatch See Detail Microbiology - Last 24 Hours (Table) 05/05/17 16:15 Fungal Culture - Preliminary Pleural Fluid Assessment and Plan Plan: Assessment Right-sided pneumothorax Right-sided pleural effusion with right sided pneumonia suspect mixed/gram- negative in nature Acute exacerbation of chronic obstructive pulmonary disease Acute on chronic hypoxic respiratory failure Congestive heart failure Probable pulmonary hypertension Atrial fibrillation Chronic anemia Severe protein calorie malnutrition Hypocalcemia Plan Patient currently getting 1 unit of packed red blood cells transfusion. Medications have been reviewed and will be continued as ordered. Continue with IV antibiotics. Pleural fluid has been sent for lab workup is negative so far. Continue with Solu-Medrol and budesonide as well as Mucinex. Repeat labs in the morning. Cardiology on consult. Infectious disease on consult. Nephrology on consult. Continue with pulmonary hygiene, coughing and deep breathing exercises, and supportive care. Supplemental oxygen to maintain oxygen saturations of 92% or better. Continue nebulizer treatments. GI and DVT prophylaxis. Ensure 3 times a day with meals. We will continue to monitor labs/results and adjust treatment as necessary. Further recommendations pending. I performed an examination of the patient and discussed their management with the nurse practitioner. I have reviewed the nurse practitioner's note and agree with the documented findings and plan of care.
[2017-05-23 11:57] LABS: Glucose,Whole Blood 266 mg/dL (75-99)
[2017-05-23 12:15] LABS: Vitamin D, 1, 25-Dihydroxy 22 pg/mL (20 - 79)
[2017-05-23] MEDS: FERROUS SULFATE 325 MG TAB PO SCH (12:43)
--- NOTE | 2017-05-23 13:54 | P.PN ---
Subjective There is a dictation by [facility], date of service 05/23 2017[address] Attending physician Dr. Morales Eubanks. Please copy to Dr. Eubanks. Patient seen evaluated today discussed with her the plan. Her vital sign temperature 98.4 pulse 81 respiratory rate 16 and her blood pressure 108/70 over 54 with a mean pressure is 72 her oxygenation 100% on 3 L. Exam: Conscious alert oriented 3 no new events. Her HEENT was negative neck was supple chest was clear on auscultation and percussion with the underlying rhonchi's on the right lower lobe. Patient had a computed tomography scan of the chest with the underlying bronchiectasis and bronchiolitis and she is on IV antibiotic. Also found that pulmonary artery was enlarged with the underlying pulmonary hypertension and also the CT of the abdomen was documented cirrhosis of the liver with history of bursitis. On the heart: Atrial fibrillation chronically present with the underlying severe tricuspid regurg and mitral stenosis associated with the recurrent congestive heart failure and pulmonary edema as which is not present at this time however she had a pleural effusion underwent aspiration. Abdomen soft positive bowel sounds with history of apparent of liver cirrhosis and ascites. Extremities no edema and positive pulses. Neurologically stable. Laboratory Her white count is 19.5 with a hemoglobin 7 and despite that she has transfusion of iron infusion her nephrology and her hemoglobin dropped down, we' ll transfuse her 1 units of packed RBCs and we will be consulting hematology oncology, Dr. Agudelo if he is in town or Dr. Campbell or for evaluation and treatment if his available treatment. At [place] fibrillation her Coumadin increased to 5 mg and her pro time is 14.2 and INR 1.5 today. History of hypercalcemia secondary to vitamin D with the appropriate elevation of the PTH. Her renal function indicating more than 60 estimated glomerular filtration rate. Hyperglycemia normal hemoglobin A1c as checked on 05/02 and 05/12 with no evidence of a chronic diabetes with only hyperglycemia secondary to steroid and currently patient changing to her steroid from IV to oral. Result of vitamin D deficiency is not available as well as a vitamin D 25- hydroxy and vitamin D1 25 hydroxy level and as well as PTH level as B1 and B12. Assessment: Waiting for the infectious disease for decision for the treatment of with the antibiotic with the prolonged use of IV antibiotic and the also waiting for the opinion of the hematology oncology and regarding of her anemia with the normal iron study and also patient received iron was still hemoglobin is dropped to 7 and despite that she also taken iron supplementation. Multiple multifactorial problem as mentioned above and will continue the current treatment. Plan with the obtaining of the hematology oncology opinion and if any further action needed as well as the infectious disease and the pulmonary patient may be discharged home, discussed yesterday in detail the long-term snf arrange however patient currently denied and she wants to seek living with her in a different apartment. Which has been the problem since admission Objective - Vital Signs Vital signs: Vital Signs Temp 98.4 F 05/23/17 12:15 Pulse 81 05/23/17 12:15 Resp 16 05/23/17 12:15 BP 108/54 05/23/17 12:15 Pulse Ox 100 05/23/17 12:15 Intake & Output 05/22/17 05/23/17 05/23/17 18:59 06:59 18:59 Intake Total 1730 0 Output Total 1000 Balance -1000 1730 0 Weight 44 kg Intake: IV 180 0.9 80 Piperacillin-Tazobactam 3 100 .375 gm In Dextrose/Water 1 50ml.bag @ 12.5 mls/hr IVPB Q8HR MARY CARMEN Rx#: [id number] Oral 1550 Blood Product 0 Rc Pheresis As-3 Unit 0 [id number] Output: Urine 1000 Uretheral ([place]) 1000 Other: Voiding Method Indwelling Catheter Bedside Commode # Voids 5 # Bowel Movements 1 - Labs CBC & Chem 7: 05/23/17 06:58 05/23/17 06:58 Labs: Abnormal Lab Results - Last 24 Hours (Table) 05/21/17 05/22/17 05/22/17 Range/Units 06:43 17:30 20:38 WBC (3.8-10.6) k/uL RBC (3.80-5.40) m/uL Hgb (11.4-16.0) gm/dL Hct (34.0-46.0) % MCV (80.0-100.0) fL MCH (25.0-35.0) pg MCHC (31.0-37.0) g/dL RDW (11.5-15.5) % Neutrophils # (1.3-7.7) k/uL PT (9.0-12.0) sec INR (<1.2) Sodium (137-145) mmol/L BUN (7-17) mg/dL POC Glucose (mg/dL) 202 H 236 H (75-99) mg/dL Total Protein (6.3-8.2) g/dL Vitamin D 25-Hydroxy 26.7 L (30.0-100.0) ng/mL Crossmatch 05/23/17 05/23/17 05/23/17 Range/Units 06:58 06:58 06:58 WBC 19.5 H (3.8-10.6) k/uL RBC 3.22 L (3.80-5.40) m/uL Hgb 7.0 L* (11.4-16.0) gm/dL Hct 24.2 L (34.0-46.0) % MCV 75.3 L (80.0-100.0) fL MCH 21.6 L (25.0-35.0) pg MCHC 28.7 L (31.0-37.0) g/dL RDW 19.8 H (11.5-15.5) % Neutrophils # 15.7 H (1.3-7.7) k/uL PT 14.2 H (9.0-12.0) sec INR 1.5 H (<1.2) Sodium 136 L (137-145) mmol/L BUN 43 H (7-17) mg/dL POC Glucose (mg/dL) (75-99) mg/dL Total Protein 5.7 L (6.3-8.2) g/dL Vitamin D 25-Hydroxy (30.0-100.0) ng/mL Crossmatch 05/23/17 05/23/17 05/23/17 Range/Units 07:14 09:00 11:55 WBC (3.8-10.6) k/uL RBC (3.80-5.40) m/uL Hgb (11.4-16.0) gm/dL Hct (34.0-46.0) % MCV (80.0-100.0) fL MCH (25.0-35.0) pg MCHC (31.0-37.0) g/dL RDW (11.5-15.5) % Neutrophils # (1.3-7.7) k/uL PT (9.0-12.0) sec INR (<1.2) Sodium (137-145) mmol/L BUN (7-17) mg/dL POC Glucose (mg/dL) 128 H 266 H (75-99) mg/dL Total Protein (6.3-8.2) g/dL Vitamin D 25-Hydroxy (30.0-100.0) ng/mL Crossmatch See Detail Microbiology - Last 24 Hours (Table) 05/05/17 16:15 Fungal Culture - Preliminary Pleural Fluid
[2017-05-23 14:18] VITALS: BMI 15.2
[2017-05-23 17:38] LABS: Glucose,Whole Blood 206 mg/dL (75-99)
[2017-05-23] MEDS: WARFARIN 5 MG TAB PO SCH (18:01)
--- NOTE | 2017-05-23 19:49 | P.PN ---
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 Became profoundly weak. Was also having increasing amounts of pain to the right lower side of her chest. Because the she presented to the emergency center. Telemetry was some steroids and respiratory treatments and this has helped her as well as pain medications. She has less short of breath at the moment and she wasn't admission. But still is quite miserable. She sitting upright sitting forward relates this gives her some relief of the discomfort she has in her right lower chest toward the back. She is still short of breath compared to her baseline. She has no hemoptysis but does have a mild cough at times. She is not having significant sputum Production. He is feeling slightly better since the thoracentesis. Had radiology place the pleural space evacuation which has been helpful. . she is discontent with pain medication, is instructed on importance of minimizing narcotic use with her pulmonary disease. After removal of the pleural space tube she's been doing relatively well Feels a bit better today. Short of breath. Is agreeing to go to rehab. Objective - Vital Signs Vital signs: Vital Signs Temp 97.6 F 05/23/17 15:00 Pulse 72 05/23/17 15:23 Resp 16 05/23/17 15:00 BP 119/54 05/23/17 15:00 Pulse Ox 100 05/23/17 15:00 Intake & Output 05/23/17 05/23/17 05/24/17 06:59 18:59 06:59 Intake Total 1730 310 Balance 1730 310 Weight 44 kg 44 kg Intake: IV 180 0.9 80 Piperacillin-Tazobactam 3 100 .375 gm In Dextrose/Water 1 50ml.bag @ 12.5 mls/hr IVPB Q8HR [facility] Rx#: [id number] Oral 1550 Blood Product 310 Rc Pheresis As-3 Unit 310 [id number] Other: Voiding Method Bedside Commode Bedside Commode # Voids 5 3 # Bowel Movements 1 - Exam 57-year-old woman who looks much older than her stated age. She is chronically ill. HEENT: Anicteric conjunctiva are pink and moist nasal mucosa grossly intact without significant lesions, there is no thrush. Poor dentition Neck: The neck is supple without significant lymphadenopathy or thyromegaly. Lungs: Symmetrical air entry with wheezes scattered throughout the lung iqbal. Evidence of decreased breath sounds breath sounds to the right base. The extensive dullness and egophony to the right base has improved after the chest tube had been placed, now removed Heart: irregular no S3 loud S4 There is no significant murmur click or rub, PMI was nondisplaced. Abdomen: Positive bowel sounds soft and nontender without palpable masses or organomegaly. There was no guarding or rebound. Extremities: The extremities have just trace edema. She has no tenderness over the joints. Skin the patient has changes of diabetes her lower extremities however she has a difficulty with chronically picking at her skin and has innumerable lesions that healed over arms and legs at this time. None of them are open are grossly draining at this time is evidence of some erythema to the coccyx. With this the Aquacel silver dressing has been applied. It has the foam border. Neuro: She is awake alert oriented to person place and time and does not exhibit any acute gross focal sensory motor deficits - Labs CBC & Chem 7: 05/23/17 06:58 05/23/17 06:58 Labs: Abnormal Lab Results - Last 24 Hours (Table) 05/21/17 05/22/17 05/23/17 Range/Units 06:43 20:38 06:58 WBC (3.8-10.6) k/uL RBC (3.80-5.40) m/uL Hgb (11.4-16.0) gm/dL Hct (34.0-46.0) % MCV (80.0-100.0) fL MCH (25.0-35.0) pg MCHC (31.0-37.0) g/dL RDW (11.5-15.5) % Neutrophils # (1.3-7.7) k/uL PT 14.2 H (9.0-12.0) sec INR 1.5 H (<1.2) Sodium (137-145) mmol/L BUN (7-17) mg/dL POC Glucose (mg/dL) 236 H (75-99) mg/dL Total Protein (6.3-8.2) g/dL Vitamin D 25-Hydroxy 26.7 L (30.0-100.0) ng/mL Crossmatch 05/23/17 05/23/17 05/23/17 Range/Units 06:58 06:58 07:14 WBC 19.5 H (3.8-10.6) k/uL RBC 3.22 L (3.80-5.40) m/uL Hgb 7.0 L* (11.4-16.0) gm/dL Hct 24.2 L (34.0-46.0) % MCV 75.3 L (80.0-100.0) fL MCH 21.6 L (25.0-35.0) pg MCHC 28.7 L (31.0-37.0) g/dL RDW 19.8 H (11.5-15.5) % Neutrophils # 15.7 H (1.3-7.7) k/uL PT (9.0-12.0) sec INR (<1.2) Sodium 136 L (137-145) mmol/L BUN 43 H (7-17) mg/dL POC Glucose (mg/dL) 128 H (75-99) mg/dL Total Protein 5.7 L (6.3-8.2) g/dL Vitamin D 25-Hydroxy (30.0-100.0) ng/mL Crossmatch 05/23/17 05/23/17 05/23/17 Range/Units 09:00 11:55 17:33 WBC (3.8-10.6) k/uL RBC (3.80-5.40) m/uL Hgb (11.4-16.0) gm/dL Hct (34.0-46.0) % MCV (80.0-100.0) fL MCH (25.0-35.0) pg MCHC (31.0-37.0) g/dL RDW (11.5-15.5) % Neutrophils # (1.3-7.7) k/uL PT (9.0-12.0) sec INR (<1.2) Sodium (137-145) mmol/L BUN (7-17) mg/dL POC Glucose (mg/dL) 266 H 206 H (75-99) mg/dL Total Protein (6.3-8.2) g/dL Vitamin D 25-Hydroxy (30.0-100.0) ng/mL Crossmatch See Detail Microbiology - Last 24 Hours (Table) 05/05/17 16:15 Fungal Culture - Preliminary Pleural Fluid Laboratory Results WBC 19.5 k/uL (3.8-10.6) H 05/23/17 06:58 RBC 3.22 m/uL (3.80-5.40) L 05/23/17 06:58 Hgb 7.0 gm/dL (11.4-16.0) L* 05/23/17 06:58 Hct 24.2 % (34.0-46.0) L 05/23/17 06:58 MCV 75.3 fL (80.0-100.0) L 05/23/17 06:58 MCH 21.6 pg (25.0-35.0) L 05/23/17 06:58 MCHC 28.7 g/dL (31.0-37.0) L 05/23/17 06:58 RDW 19.8 % (11.5-15.5) H 05/23/17 06:58 Plt Count 170 k/uL (150-450) 05/23/17 06:58 Neutrophils % 81 % 05/23/17 06:58 Lymphocytes % 13 % 05/23/17 06:58 Monocytes % 4 % 05/23/17 06:58 Eosinophils % 1 % 05/23/17 06:58 Basophils % 0 % 05/23/17 06:58 Neutrophils # 15.7 k/uL (1.3-7.7) H 05/23/17 06:58 Lymphocytes # 2.6 k/uL (1.0-4.8) 05/23/17 06:58 Monocytes # 0.8 k/uL (0-1.0) 05/23/17 06:58 Eosinophils # 0.1 k/uL (0-0.7) 05/23/17 06:58 Basophils # 0.0 k/uL (0-0.2) 05/23/17 06:58 Hypochromasia Marked 05/23/17 06:58 Poikilocytosis Slight 05/23/17 06:58 Anisocytosis Slight 05/23/17 06:58 Microcytosis Moderate 05/23/17 06:58 Retic Count 5.4 % (0.5-2.0) H 05/21/17 06:43 PT 14.2 sec (9.0-12.0) H 05/23/17 06:58 INR 1.5 (<1.2) H 05/23/17 06:58 APTT 39.4 sec (22.0-30.0) H 05/02/17 02:30 D-Dimer 0.60 mg/L FEU (<0.60) H 05/02/17 02:30 Sodium 136 mmol/L (137-145) L 05/23/17 06:58 Potassium 3.6 mmol/L (3.5-5.1) 05/23/17 06:58 Chloride 98 mmol/L (98-107) 05/23/17 06:58 Carbon Dioxide 29 mmol/L (22-30) 05/23/17 06:58 Anion Gap 9 mmol/L 05/23/17 06:58 BUN 43 mg/dL (7-17) H 05/23/17 06:58 Creatinine 0.82 mg/dL (0.52-1.04) 05/23/17 06:58 Est GFR (MDRD) Af Amer >60 (>60 ml/min/1.73 sqM) 05/23/17 06:58 Est GFR (MDRD) Non-Af >60 (>60 ml/min/1.73 sqM) 05/23/17 06:58 Glucose 91 mg/dL (74-99) 05/23/17 06:58 POC Glucose (mg/dL) 206 mg/dL (75-99) H 05/23/17 17:33 POC Glu [employer] PAULETTE Renetta Hartmann 05/23/17 17:[address] Glu mg/dL 108 mg/dL 05/12/17 07:20 Hemoglobin A1c 5.4 % (4.2-6.1) 05/12/17 07:20 Calcium 8.8 mg/dL (8.4-10.2) 05/23/17 06:58 Ionized Calcium Sherine 4.2 mg/dL (4.5-5.3) L 05/16/17 10:31 Phosphorus 2.9 mg/dL (2.5-4.5) 05/17/17 08:08 Magnesium 2.2 mg/dL (1.6-2.3) 05/21/17 06:43 Iron 245 ug/dL (37-170) H 05/21/17 06:43 TIBC 328 ug/dL (265-497) 05/21/17 06:43 % Saturation 74.7 % (20-50) H 05/21/17 06:43 Ferritin 195 ng/mL (11-264) 05/21/17 06:43 Total Bilirubin 0.6 mg/dL (0.2-1.3) 05/23/17 06:58 AST 22 U/L (14-36) 05/23/17 06:58 ALT 42 U/L (9-52) 05/23/17 06:58 Alkaline Phosphatase 85 U/L (38-126) 05/23/17 06:58 Total Creatine Kinase 90 U/L (30-135) 05/02/17 02:30 CK-MB (CK-2) 4.0 ng/mL (0.0-2.4) H* 05/02/17 02:30 CK-MB (CK-2) Rel Index 4.4 05/02/17 02:30 Troponin I 0.020 ng/mL (0.000-0.034) 05/02/17 02:30 NT-Pro-B Natriuret Pep 8080 pg/mL 05/02/17 02:30 Total Protein 5.7 g/dL (6.3-8.2) L 05/23/17 06:58 Albumin 3.5 g/dL (3.5-5.0) 05/23/17 06:58 Vitamin B1 64 ug/L (38-122) 05/21/17 06:43 Vitamin B12 443 pg/mL (239-931) 05/21/17 06:43 Vitamin C Cancelled 05/21/17 06:43 Vitamin D 25-Hydroxy 26.7 ng/mL (30.0-100.0) L 05/21/17 06:43 Vit D 1,25-Dihydroxy 22 pg/mL (20 - 79) 05/21/17 06:43 PTH Intact 55.0 pg/mL (14.0-72.0) 05/21/17 06:43 Urine Color Yellow 05/02/17 23:05 Urine Appearance Clear (Clear) 05/02/17 23:05 Urine pH 6.5 (5.0-8.0) 05/02/17 23:05 Ur Specific [place] 1.012 (1.001-1.035) 05/02/17 23:05 Urine Protein Trace (Negative) H 05/02/17 23:05 Urine Glucose (UA) Negative (Negative) 05/02/17 23:05 Urine Ketones Negative (Negative) 05/02/17 23:05 Urine Blood Trace (Negative) H 05/02/17 23:05 Urine Nitrite Negative (Negative) 05/02/17 23:05 Urine Bilirubin Negative (Negative) 05/02/17 23:05 Urine Urobilinogen <2.0 mg/dL (<2.0) 05/02/17 23:05 Ur Leukocyte Esterase Negative (Negative) 05/02/17 23:05 Urine RBC 7 /hpf (0-5) H 05/02/17 23:05 Urine WBC 1 /hpf (0-5) 05/02/17 23:05 Ur Squamous Epith Cells <1 /hpf (0-4) 05/02/17 23:05 Hyaline Casts 101 /lpf (0-2) H 05/02/17 23:05 Urine Mucus Rare /hpf (None) H 05/02/17 23:05 Fluid Source Pleural 05/05/17 16:15 Fluid Color Yellow 05/05/17 16:15 Fluid Appearance Clear 05/05/17 16:15 Fluid RBC 152 /uL 05/05/17 16:15 Fluid Nucleated Cells 33 /uL 05/05/17 16:15 Fluid Polynuclear WBCs 13 % 05/05/17 16:15 Fluid Mononuclear WBCs 87 % 05/05/17 16:15 Body Fluid Glucose Source Pleural Fluid 05/05/17 16:15 Fluid Glucose 159 mg/dL 05/05/17 16:15 Body Fluid Protein Source Pleural Fluid 05/05/17 16:15 Fluid Total Protein 1289.0 mg/dL 05/05/17 16:15 Body Fluid LDH Source Pleural Fluid 05/05/17 16:15 Fluid LDH 105 U/L 05/05/17 16:15 Stool Occult Blood Positive (Negative) H 05/21/17 21:55 Digoxin 1.2 ng/mL 05/23/17 06:58 Urine Legionella Ag Not detected (Not detected) 05/02/17 23:05 Mycoplasma pneumon IgG 2.82 INDEX (<=0.90) H 05/03/17 07:15 Mycoplasma pneumon IgM 0.46 INDEX (<=0.90) 05/03/17 07:15 Blood Type O Positive 05/23/17 09:00 Blood Type Recheck No 05/23/17 09:00 Antibody Screen NEGATIVE 05/23/17 09:00 Crossmatch See Detail 05/23/17 09:00 Spec Expiration Date 05/26/2017 - 23005/23/17 09:00 Microbiology 05/05/17 16:15 Pleural Fluid Fungal Culture - Preliminary 05/05/17 16:15 Pleural Fluid Acid Fast Bacilli Smear - Final 05/05/17 16:15 Pleural Fluid Acid Fast Bacilli Culture - Preliminary 05/05/17 16:15 Pleural Fluid Gram Stain - Final 05/05/17 16:15 Pleural Fluid Body Fluid Culture - Final 05/05/17 18:00 Sputum Gram Stain - Final 05/05/17 18:00 Sputum Sputum Culture - Final Corynebacterium striatum 05/02/17 02:30 Blood Blood Culture - Final No Growth after 144 hours 05/02/17 23:05 Urine,Voided Urine Culture - Final Assessment and Plan (1) COPD (chronic obstructive pulmonary disease) Status: Acute (2) Afib Status: Acute (3) Pleural effusion Narrative/Plan: 57-year-old female who has advanced COPD that is oxygen and inhaled steroid dependent, but continues to smoke. Presents to Hospital feeling increasing shortness of breath. Was associated with increasing amounts of discomfort to her right lower chest especially posterior. Chest ray and ultrasound reveal evidence of an increasing effusion to that area. Potentially will have a thoracentesis. Prior cultures have been negative. No history of MRSA. Given her complex history currently be treating with piperacillin tazobactam and Levaquin Blood cultures are negative so far. Sputum cultures negative so far. Legionella has come back as negative Mycoplasma is positive for old disease nothing acute Thoracentesis has occurred. Fluid is negative for infection but is an exudate is noted by the chemistry. She does feel symptomatically better since this. Has been seen by cardiothoracic surgery with no plans for surgery . Cytology is negative for malignancy from the thoracentesis. Radiology consult has been requested for the pigtail Pleur-evac catheter placement allowed improvement of breathing, may be removed tomorrow. With current steroid therapy as well as the breathing treatments she was symptomatically improving. Nothing somewhat more poorly again. The patient does have a stage II area on the coccyx for which the Aquacel silver foam dressing is then applied. Advised to try to not always being is sitting up position to offload some pressure to her coccyx. At this time with her progressive disease would consider the possibility of a palliative care process. Seems to be willing to go to rehab. Has already completed a multiweek course of antibiotic therapy. We'll transition to oral antibiotic today. Status: Acute Code(s): J90 - PLEURAL EFFUSION, NOT ELSEWHERE CLASSIFIED
[2017-05-23] MEDS: CEFUROXIME 250 MG TAB PO SCH (20:32)
[2017-05-23] MEDS: ATORVASTATIN 40 MG TAB PO SCH (20:33)
[2017-05-23] MEDS: MONTELUKAST 10 MG TAB PO SCH (20:33)
[2017-05-23 20:49] LABS: Glucose,Whole Blood 220 mg/dL (75-99)
[2017-05-23 22:35] LABS: Glucose,Whole Blood 61 mg/dL (75-99)
[2017-05-23 22:40] LABS: Glucose,Whole Blood 80 mg/dL (75-99)
[2017-05-24] MEDS: ALPRAZolam 0.5 MG TAB PO PRN (00:08)
[2017-05-24] MEDS: HYDROmorphone 1 MG/ML 1 ML SYRINGE IVP SCH (00:12)
[2017-05-24] MEDS: traZODone HCL 50 MG TAB PO SCH (00:27)
[2017-05-24] MEDS: HYDROmorphone 1 MG/ML 1 ML SYRINGE IVP PRN ×3 (05:54→22:17)
[2017-05-24 07:45] LABS: Glucose,Whole Blood 97 mg/dL (75-99)
[2017-05-24] MEDS: IPRATROPIUM-ALBUTEROL 3 ML NEB INHALATION SCH ×4 (07:47→19:09)
[2017-05-24] MEDS: BUDESONIDE 0.5 MG/2 ML NEBU INHALATION SCH ×2 (07:47→19:09)
[2017-05-24] MEDS: INSULIN LISPRO (humaLOG) 300 UNIT/3 ML VIAL SQ SCH ×4 (07:56→20:32)
[2017-05-24 08:05] LABS: INR 2.3 (<1.2); Prothrombin Time 22.5 sec (9.0-12.0)
[2017-05-24 08:14] LABS: Anion Gap 8 mmol/L; Blood Urea Nitrogen 36 mg/dL (7-17); Calcium 8.7 mg/dL (8.4-10.2); Carbon Dioxide 31 mmol/L (22-30); Chloride 100 mmol/L (98-107); Glucose 77 mg/dL (74-99); Non-African American GFR(MDRD) >60 (>60 ml/min/1.73 sqM); Potassium 3.9 mmol/L (3.5-5.1); Sodium 139 mmol/L (137-145)
[2017-05-24 08:43] LABS: Anisocytosis Slight; CH 21.8; CHCM 29.3; HCT 27.8 % (34.0-46.0); HDW 4.08; HGB 8.2 gm/dL (11.4-16.0); Hypochromasia Marked; MCH 22.2 pg (25.0-35.0); MCHC 29.6 g/dL (31.0-37.0); MCV 74.8 fL (80.0-100.0); Mean Platelet Volume 7.4; Microcytosis Moderate; Poikilocytosis Moderate; RBC 3.71 m/uL (3.80-5.40); RDW 19.9 % (11.5-15.5)
[2017-05-24] MEDS: CEFUROXIME 250 MG TAB PO SCH ×2 (09:17→20:32)
[2017-05-24] MEDS: HYDROcodone/APAP 10-325MG 1 EACH TAB PO PRN ×2 (09:17→16:39)
[2017-05-24] MEDS: DOCUSATE 100 MG CAP PO SCH (09:18)
[2017-05-24] MEDS: DIGOXIN 125 MCG TAB PO SCH (09:18)
[2017-05-24] MEDS: guaiFENesin 600 MG TABLET.ER PO SCH ×2 (09:19→20:32)
[2017-05-24] MEDS: FUROSEMIDE 40 MG TAB PO SCH ×2 (09:19→20:32)
[2017-05-24] MEDS: POTASSIUM CHLORIDE ER 10 MEQ TAB.ER.PRT PO SCH (09:19)
[2017-05-24] MEDS: predniSONE 20 MG TAB PO SCH (09:20)
[2017-05-24 10:16] LABS: Add Differential Manual Differential
[2017-05-24 10:22] LABS: Myelocytes % 0.5 %; Nucleated Red Blood Cells 5 /100 WBC (0-0); Total Cells Counted 200
[2017-05-24 10:23] LABS: WBC 15.7 k/uL (3.8-10.6)
[2017-05-24 10:27] LABS: Basophilic Stippling Present; Ovalocytes Present; Polychromasia Present; Target Cells Present; Tear Drop Cells Present
--- NOTE | 2017-05-24 11:01 | P.PN ---
Subjective 05/02/17 This is a 57-year-old female patient being seen, examined and evaluated. Patient is well-known to our services. This Patient comes in with complaints of shortness of breath that had been increasing over the last few days. The patient does have a significant medical history for CHF, COPD that is severe, chronic persistent asthma but severe, atrial fibrillation, renal insufficiency and liver disease. This patient has a known history for reoccurring pneumonia as well. Patient states she uses 4-5 L of supplemental oxygen at home at all times. Upon examination the patient's resting up in bed on 5 L of supplemental oxygen, she states she has shortness of breath with any minimal exertion as well as extensive conversation. Chest x-ray has been reviewed and shows an increasing right pleural effusion which is associated with atelectasis, possible pulmonary artery hypertension, and congestive heart failure. 05/03/17 upon examination today the patient's resting up in bed and continues to be on 5 L of supplemental oxygen. Patient continues to have shortness of breath with any minimal exertion and extensive conversation. Patient did undergo an ultrasound of the chest yesterday which revealed a right pleural effusion fluid pocket of 10.4 cm this has increased significantly since her last ultrasound of the chest which was done 02/08/2017 which showed a right pleural effusion pocket of 4.2 at that time. During that admission in January the effusion was too small to undergo a thoracentesis. Of note ,since its progression, the patient is a candidate to have the thoracentesis performed in regards to size. However the patient was on Coumadin for chronic A. fib and her INR yesterday was 2.9. Yesterday we discontinued the Coumadin and put the patient on Lovenox in preparation for thoracentesis. A repeat INR was performed today and is currently 3.6. We would like the patient's INR to be closer to 1.4 before we perform the thoracentesis. Repeat labs will be drawn tomorrow. 05/04/17 examination today the patient's resting up in bed and continues on 5 L of supplemental oxygen. Patient states she is a little less short of breath today than previously. However she still continues to have shortness of breath with exertion. Patient's INR today was 3.7, which is still too high to undergo a thoracentesis. Labs have been reviewed. We truly the increase in INR due to the patient being on Levaquin as a side effect. 05/05/17- upon examination today the patient is resting up in bed and continues on the 5 L of supplemental oxygen. The patient's INR today is 1.3 therefore we can go forth with the thoracentesis. The procedure as well as the risk and benefits have been discussed at length with the patient QUESTIONS have been answered. After the thoracentesis is completed the fluid will be sent for lab workup. The patient will be able to start back on her Coumadin tonight. The patient should continue with Lovenox until her INR is more than 1.8. Patient continues to have shortness of breath with exertion. 05/06/17- patient did undergo a thoracentesis yesterday. 1.6 L of clear yellow pleural fluid was removed. It was discovered on the post x-ray at the patient did have a 20% pneumothorax. The patient was asymptomatic at that time. The patient was to be watched closely overnight and have a repeat chest x-ray that evening which was stable and another one this morning which dates show a possible slight increase in the pneumothorax. CT of the chest without contrast was obtained and results are not readily available. We will consult cardiothoracic to follow the patient and interventional radiology to place a pigtail catheter. Upon examination the patient is resting up in bed and despite the pneumothorax the patient states her breathing is better today after having the fluid removed. Patient is still requiring 4-5 L of supplemental oxygen however she said her shortness of breath has decreased. Patient is afebrile no further complaints. 05/07/17 and 05/08/17, please refer to DR. JULIO Gao note, as he covered these days. 05/09/17-upon examination today the patient's resting up in bed on 5 L of supplemental oxygen. Chest x-rays have been reviewed and the patient still has a pneumothorax that has not improved, pneumothorax remains about 30%. Therefore the patient will ultimately require a chest tube placement by interventional radiology. Patient continues to feel short of breath and tight. Today she states she feels slightly worse than yesterday in regards to her breathing. We'll recheck her CBC CMP and PT/INR. Patient has had her Coumadin on hold since pneumothorax and she has been receiving Lovenox. 05/10/17- on examination today the patient has just came back from interventional radiology after pigtail chest tube insertion. There is approximately 300 ML's of serosanguineous drainage noted upon arrival and the pleural VAC has not been attached to suction yet at this time. Patient will be hooked up to wall suction. Patient states that this initially received the chest tube she had immediate relief in her shortness of breath which decreased significantly. Patient states she is breathing much better post procedure. Patient is noted to be sitting up in bed and continues on 5 L of supplemental oxygen. Labs and radiology reports have been reviewed. 05/11/17- upon examination today the patient is resting up in bed and states she feels better today. Patient continues on 5 L of supplemental oxygen. Patient still has her chest tube in and has had approximately 700 ML's of serosanguineous output total since it was inserted. Her appetite has improved slightly as well. Patient states she is much more comfortable today. She continues on IV Solu-Medrol, updrafts and antibiotics. 05/12/17- today the patient is seen resting in bed on 4-5 L of oxygen. The patient states that she continues to have a productive cough with congestion. She is breathing easier with less effort. Appetite continues to improve. Her chest tube shows an output of approximately 875 ML's total output. Continues to be hooked up to suction. States her appetite continues to wax and wane. Chest x-ray from today has been reviewed patient's hydropneumothorax has been improved and remains about 15%. 05/13/17-today the patient seen resting up in bed on 4-5 L of supplemental oxygen via nasal cannula. She continues to have a productive cough with congestion however she states this is slightly improved today. She continues to breathe easier with less effort. Currently she is eating. Her chest tube shows approximately a total of 1100 ML's of serosanguineous drainage. Coumadin is still currently on hold and she is utilizing Lovenox. Chest x-ray is pending. No further complaints no overnight events. She is utilizing her incentive spirometer and pulls volumes of 1750. We will decrease her steroids today. 05/14/17, patient seen and evaluated examined today she is complaining of some shortness of breath and congestion however not producing much sputum her chest x -ray from today has been reviewed very small residual pneumothorax and small effusions seen she has put out another 350 mL in the last 48 hours the pleural VAC in control is adequate chest tube is connected with the 20 cm water of section is doing IS regularly on 4-5 L oxygen with stable oxygenation 05/15/17, patient seen and evaluated examined care plan discussed with the nurse at length critical care time spent 35 minutes chest x-ray from today reviewed the laboratory data reviewed as well care plan discussed with the primary service, patient is complaining of some weakness and tiredness has been congested as well and slightly more short of breath however her chest x-ray looks much improved she had put out more than 300 mL and pleural VAC December chest x-ray from today reveal almost resolution of pneumothorax some reexpansion pulmonary edema in the right lower lobe versus right lower lobe pneumonia cannot be excluded she does have cough but no sputum is coming out she remains on 4 L oxygen, she is being planned for replacement of calcium transfusion of 2 unit packed RBC replacement of potassium and placement of new peripheral IVs antibiotics in the form of IV Zosyn is being started 05/16/17- upon examination today the patient is seen resting up in bed on 5 L of supplemental oxygen. Chest x-ray has been reviewed and does show improvement in the pneumothorax with some reexpansion pulmonary edema in the right lower lobe versus right lower lobe pneumonia cannot be excluded. Patient's electrolytes known to be off therefore nephrology will be consult it. Patient is also being seen by infectious disease and cardiology. Patient's pleural low back continues to be patent and draining serosanguineous fluids. The pleural VAC chamber was changed today at 6 AM. The patient is noted that have 70 ML out between 6 AM and 9 AM. Patient's hemoglobin is stable today at 8.6. No further signs of bleeding. Patient is using her incentive spirometer and pulling volumes of approximately thousand ML. 05/17/17 upon examination the patient is resting up in bed on [address] of [address] oxygen[address] Hinds did remove the chest tube without complication. Chest x-ray has been obtained postprocedure and shows no complication post chest tube removal, no pneumothorax. Patient has been hemodynamically stable. She is resting more comfortably. Hemoglobin remained stable at 8.6. She denies any pain or discomfort at this time. She continues to be followed by nephrology as well as infectious disease. 05/18/17 upon examination today the patient's resting up in bed on 5 L of supplemental oxygen. Chest tube insertion site noted to have small amount of serosanguineous drainage on the dressing. Chest x-ray has been reviewed and is stable. Labs reviewed. Hemoglobin today is 8.5. Patient had no overnight events no further complaints. 05/19/17- patient is seen and examined today on rounds. Patient continues on 5 L of supplemental oxygen. Chest tube site clean and dry and intact no drainage noted. Patient continues to complain of some congestion however Mucinex is helping. Labs have been reviewed, hemoglobin 7.8 today. Coumadin was restarted yesterday, INR is 1.1. We can discontinue the Lovenox once INR is greater than 2. No overnight events. 05/20/17- patient is being seen in examined and evaluated on rounds today. She continues on supplemental oxygen of 5 L via nasal cannula. Continues with shortness of breath with exertion. Congestion slightly improving. Hemoglobin today is 7.6 CO2 was noted to be 41. Chest x-ray and labs were reviewed. Patient does have a pleural effusion however we will try to medically manage it at this time we do not want to go forth with a thoracentesis at this point. Follow she is on consult and has adjusted medications due to alkalosis related to diuretic induced volume contraction. Patient was placed on Diamox 250 mg twice a day. Electrolytes monitored and being replaced per protocol. 05/21/17 patient's seen and evaluated exam and on fifth floor remains on supplemental oxygen her CO2 was noted to be elevated likely related to multifactorial processes including hypercapnia as well as diuresis she is short of breath but overall stable no chest pain no cough or sputum production remains on broad-spectrum antibiotics patient has been resumed on Coumadin noted chest x-ray revealed reaccumulation of fluid on the right side but no hydropneumothorax has been seen no plans for thoracentesis at this point of time 05/22/17, patient seen and evaluated exam and on fifth floor overall continued to be on supplemental oxygen her respiratory status overall is not much change from baseline get short of breath on activity and exertion denies any chest pain , chest x-ray from today reviewed no pleural effusion is present, basal atelectasis has been demonstrated again versus pneumonia, would recommend to continue deep breathing exercises incentive spirometry and empiric antibiotics 05/23/17 is being seen in evaluated and examined today on rounds. Patient continues on 3-4 L of supplemental oxygen today. She continues to have shortness of breath with activity or exertion. Patient's labs have been reviewed for the day the patient is noted to have a hemoglobin of 7.0. The patient is getting 1 unit of packed red blood cells for transfusion. No overt signs and symptoms of bleeding noted. Patient states she feels tired and weak today. Continues to have mild cough and congestion. 05/24/17 - patient is being seen and examined and evaluated today on rounds. She continues to have shortness breath with exertion or any minimal activity. Continues on 3-4 L of supplemental oxygen. Today her hemoglobin has improved to 8.2, status post blood transfusion yesterday. Patient will be started on oral antibiotics today per infectious disease. She was also switched to oral steroids yesterday as well. Rehab facility and/or palliative care has been suggested. Her Lovenox has also been discontinued now that her INR is 2.3. Objective - Vital Signs Vital signs: Vital Signs Temp 97.9 F 05/23/17 22:48 Pulse 73 05/24/17 08:41 Resp 18 05/24/17 08:41 BP 113/61 05/24/17 08:41 Pulse Ox 100 05/24/17 08:41 Intake & Output 05/23/17 05/24/17 05/24/17 18:59 06:59 18:59 Intake Total 310 900 440 Balance 310 900 440 Weight 44 kg 43.5 kg 43.5 kg Intake: IV 320 0.9 320 Oral 580 440 Blood Product 310 Rc Pheresis As-3 Unit 310 [id number] Other: Voiding Method Bedside Commode Bedside Commode Bedside Commode # Voids 3 4 - Exam GENERAL EXAM: Alert, cachectic, comfortable in no apparent distress. HEAD: Normocephalic. EYES: Normal reaction of pupils, equal size. NOSE: Clear with pink turbinates. THROAT: No erythema or exudates. NECK: No masses, no JVD. CHEST: No chest wall deformity. LUNGS: Poor air entry is present, scattered rhonchi as well as expiratory wheezes noted throughout. Right-sided pigtail chest tube has been removed dressing is in place. CVS: S1 and S2 normal with no audible mumurs, regular rhythm. ABDOMEN: No hepatosplenomegaly, normal bowel sounds, no guarding or rigidity. EXTREMITIES: Trace edema noted, pedal pulses palpable. SKIN: No rashes, dressing in place to coccyx wound CENTRAL NERVOUS SYSTEM: No focal deficits, tone is normal in all 4 extremities. - Labs CBC & Chem 7: 05/24/17 07:27 05/24/17 07:27 Labs: Abnormal Lab Results - Last 24 Hours (Table) 05/23/17 05/23/17 05/23/17 Range/Units 09:00 11:55 17:33 WBC (3.8-10.6) k/uL RBC (3.80-5.40) m/uL Hgb (11.4-16.0) gm/dL Hct (34.0-46.0) % MCV (80.0-100.0) fL MCH (25.0-35.0) pg MCHC (31.0-37.0) g/dL RDW (11.5-15.5) % Neutrophils # (Manual) (1.3-7.7) k/uL Nucleated RBCs (0-0) /100 WBC PT (9.0-12.0) sec INR (<1.2) Carbon Dioxide (22-30) mmol/L BUN (7-17) mg/dL POC Glucose (mg/dL) 266 H 206 H (75-99) mg/dL Crossmatch See Detail 05/23/17 05/23/17 05/24/17 Range/Units 20:17 22:22 07:27 WBC (3.8-10.6) k/uL RBC (3.80-5.40) m/uL Hgb (11.4-16.0) gm/dL Hct (34.0-46.0) % MCV (80.0-100.0) fL MCH (25.0-35.0) pg MCHC (31.0-37.0) g/dL RDW (11.5-15.5) % Neutrophils # (Manual) (1.3-7.7) k/uL Nucleated RBCs (0-0) /100 WBC PT 22.5 H (9.0-12.0) sec INR 2.3 H (<1.2) Carbon Dioxide (22-30) mmol/L BUN (7-17) mg/dL POC Glucose (mg/dL) 220 H 61 L (75-99) mg/dL Crossmatch 05/24/17 05/24/17 Range/Units 07:27 07:27 WBC 15.7 H (3.8-10.6) k/uL RBC 3.71 L (3.80-5.40) m/uL Hgb 8.2 L (11.4-16.0) gm/dL Hct 27.8 L (34.0-46.0) % MCV 74.8 L (80.0-100.0) fL MCH 22.2 L (25.0-35.0) pg MCHC 29.6 L (31.0-37.0) g/dL RDW 19.9 H (11.5-15.5) % Neutrophils # (Manual) 11.3 H (1.3-7.7) k/uL Nucleated RBCs 5 H (0-0) /100 WBC PT (9.0-12.0) sec INR (<1.2) Carbon Dioxide 31 H (22-30) mmol/L BUN 36 H (7-17) mg/dL POC Glucose (mg/dL) (75-99) mg/dL Crossmatch Microbiology - Last 24 Hours (Table) 05/05/17 16:15 Acid Fast Bacilli Smear - Final Pleural Fluid Acid Fast Bacilli Culture - Preliminary 05/05/17 16:15 Fungal Culture - Preliminary Pleural Fluid Assessment and Plan Plan: Assessment Right-sided pneumothorax Right-sided pleural effusion with right sided pneumonia suspect mixed/gram- negative in nature Acute exacerbation of chronic obstructive pulmonary disease Acute on chronic hypoxic respiratory failure Congestive heart failure Probable pulmonary hypertension Atrial fibrillation Chronic anemia Severe protein calorie malnutrition Hypocalcemia Plan Patient should consider rehab facility and/or palliative care/hospice due to her multiple comorbidities and end-stage COPD Medications have been reviewed and will be continued as ordered. Continue with IV antibiotics. Pleural fluid has been sent for lab workup is negative so far. Continue with Solu-Medrol and budesonide as well as Mucinex. Repeat labs in the morning. Cardiology on consult. Infectious disease on consult. Nephrology on consult. Continue with pulmonary hygiene, coughing and deep breathing exercises, and supportive care. Supplemental oxygen to maintain oxygen saturations of 92% or better. Continue nebulizer treatments. GI and DVT prophylaxis. Ensure 3 times a day with meals. We will continue to monitor labs/results and adjust treatment as necessary. Further recommendations pending. I performed an examination of the patient and discussed their management with the nurse practitioner. I have reviewed the nurse practitioner's note and agree with the documented findings and plan of care.
[2017-05-24 11:17] LABS: Glucose,Whole Blood 134 mg/dL (75-99)
[2017-05-24] MEDS: FERROUS SULFATE 325 MG TAB PO SCH (13:14)
[2017-05-24] MEDS: ERGOCALCIFEROL 50,000 UNIT CAP PO SCH (13:14)
--- NOTE | 2017-05-24 13:50 | P.PN ---
Subjective This dictation by Dr. Ant Wiggins [facility], date of service 05/24/2017. Attending physician Dr. Morales Eubanks. Patient seen and evaluated discussed with her and her and her daughter. Vital sign blood pressure 113/61 mean blood pressure 78 pulse ox is 100% on 3 L her pulse rate 76-72 irregular irregularity with at [place] fibrillation her respiratory rate 18/m nonlabored. Laboratory: WBC 15.7 hemoglobin 8.2 platelet count 182. PT 22.5 and INR 2.3 patient therapeutic on anticoagulation Coumadin/warfarin will change her Coumadin to 2 mg which has been as outpatient discussed with the nursing staff in detail. Currently we are waiting for hematology oncology evaluation and treatment if needed with the underlying history of severe anemia, her iron studies was normal however nephrology started her on iron transfusion or infusion, still her hemoglobin dropped to 7 with no effective iron and patient had one units of packed RBCs, her estimated glomerular filtration rate for non- more than 60 and patient had hypocalcemia secondary to vitamin D deficiency her PTH normalized with the vitamin D. Her blood sugar significantly improved after we change it to oral steroid and we will be decreasing the steroid subsequently the oral prednisone after we did a computed tomography scan of the abdomen as well as a chest without contrast. Dr. Raimundo Castellon infectious disease able to change her to oral Ceftin by mouth and discontinued the IV antibiotic after prolonged treatment with antibiotic. Her blood sugar was 77 this morning patient had previously hemoglobin A1c twice during her current admission and was indicating no evidence of diabetes mellitus On exam: HEENT negative, neck was supple no lymphadenopathy Chest increased anteroposterior diameter with the underlying atelectasis of the right lower lobe with possible fibrosis and bronchiectasis cylindrical. At [place] fibrillation with controlled ventricular response. Abdomen soft positive bowel sounds no tenderness in the 4 quadrants with the history by CAT scan liver cirrhosis. Extremities no edema and positive pulses and ambulatory. [place] catheter has been removed and patient inability to urinate. Her calcium improved to 8.7 at this time. Patient assessment: #1 underlying anemia unclear etiology was normal iron studies as well as received iron transfusion as well as transfused 1 unit of RBCs, consultation with hematology oncology requested however the did not see the patient in yet. #2 history of chronic infection with the COPD and asthma. And found to be having of bronchiectasis and atelectasis #3 hyperglycemia with no evidence of diabetes mellitus secondary to high doses of steroids. #4 at [place] fibrillation currently controlled ventricular response on anticoagulation adjusted the dose of Coumadin. #5 history of hypocalcemia secondary to vitamin D deficiency which is normalized at this time next #6 history of chronic kidney disease however currently her glomerular filtration rate more than 60 with the possibility of chronic kidney disease stage II or 1 and that's not affecting her blood for anemia. Plan we'll decrease the steroid #2 the antibiotic change it to oral #3 waiting for hematology oncology for evaluation and treatment if needed with the plan for discharge patient tomorrow home she refused fpc retirement next #4 we'll adjust the warfarin to 2 mg once daily at p.m. 8 PM thank you Objective - Vital Signs Vital signs: Vital Signs Temp 97.9 F 05/23/17 22:48 Pulse 76 05/24/17 11:23 Resp 18 05/24/17 08:41 BP 113/61 05/24/17 08:41 Pulse Ox 100 05/24/17 08:41 Intake & Output 05/23/17 05/24/17 05/24/17 18:59 06:59 18:59 Intake Total 310 900 440 Balance 310 900 440 Weight 44 kg 43.5 kg 43.5 kg Intake: IV 320 0.9 320 Oral 580 440 Blood Product 310 Rc Pheresis As-3 Unit 310 [id number] Other: Voiding Method Bedside Commode Bedside Commode Bedside Commode # Voids 3 4 - Labs CBC & Chem 7: 05/24/17 07:27 05/24/17 07:27 Labs: Abnormal Lab Results - Last 24 Hours (Table) 05/23/17 05/23/17 05/23/17 Range/Units 09:00 17:33 20:17 WBC (3.8-10.6) k/uL RBC (3.80-5.40) m/uL Hgb (11.4-16.0) gm/dL Hct (34.0-46.0) % MCV (80.0-100.0) fL MCH (25.0-35.0) pg MCHC (31.0-37.0) g/dL RDW (11.5-15.5) % Neutrophils # (Manual) (1.3-7.7) k/uL Nucleated RBCs (0-0) /100 WBC PT (9.0-12.0) sec INR (<1.2) Carbon Dioxide (22-30) mmol/L BUN (7-17) mg/dL POC Glucose (mg/dL) 206 H 220 H (75-99) mg/dL Crossmatch See Detail 05/23/17 05/24/17 05/24/17 Range/Units 22:22 07:27 07:27 WBC (3.8-10.6) k/uL RBC (3.80-5.40) m/uL Hgb (11.4-16.0) gm/dL Hct (34.0-46.0) % MCV (80.0-100.0) fL MCH (25.0-35.0) pg MCHC (31.0-37.0) g/dL RDW (11.5-15.5) % Neutrophils # (Manual) (1.3-7.7) k/uL Nucleated RBCs (0-0) /100 WBC PT 22.5 H (9.0-12.0) sec INR 2.3 H (<1.2) Carbon Dioxide 31 H (22-30) mmol/L BUN 36 H (7-17) mg/dL POC Glucose (mg/dL) 61 L (75-99) mg/dL Crossmatch 05/24/17 05/24/17 Range/Units 07:27 11:07 WBC 15.7 H (3.8-10.6) k/uL RBC 3.71 L (3.80-5.40) m/uL Hgb 8.2 L (11.4-16.0) gm/dL Hct 27.8 L (34.0-46.0) % MCV 74.8 L (80.0-100.0) fL MCH 22.2 L (25.0-35.0) pg MCHC 29.6 L (31.0-37.0) g/dL RDW 19.9 H (11.5-15.5) % Neutrophils # (Manual) 11.3 H (1.3-7.7) k/uL Nucleated RBCs 5 H (0-0) /100 WBC PT (9.0-12.0) sec INR (<1.2) Carbon Dioxide (22-30) mmol/L BUN (7-17) mg/dL POC Glucose (mg/dL) 134 H (75-99) mg/dL Crossmatch Microbiology - Last 24 Hours (Table) 05/05/17 16:15 Acid Fast Bacilli Smear - Final Pleural Fluid Acid Fast Bacilli Culture - Preliminary 05/05/17 16:15 Fungal Culture - Preliminary Pleural Fluid
[2017-05-24] MEDS: ALPRAZolam 0.25 MG TAB PO PRN (14:15)
--- NOTE | 2017-05-24 16:59 | P.CONS ---
History of Present Illness - Reason for Consult Consult date: 05/24/17 anemia Requesting physician: Frank Cain - Chief Complaint SOB - History of Present Illness Ms. Loya is a very pleasant 57 year old female pt with a complicated hospitalization including admit to ICU, sepsis and chest tube for pleural effusion. We have been asked to see pt in regards to anemia. Pt states she has "always been anemic", she is not sure if she has ever had a transfusion before, she thinks she used to take oral iron, she has had infusions of iron. She denies recent hematemesis, black or bloody stool, she is not aware of any bleeding. She was not able to confirm or deny liver disease but she states she used to drink a lot. Medical record reviewed. Pt was seen in Aug 2016 for anemia and thrombocytopenia felt to be related to anticoagulation and acute episode of bleeding and splenic sequestration secondary to liver cirrhosis respectively. Pt had EGD and colonoscopy at that time that showed some oozing of blood at the distal esophagus, no evidence of malignancy, biopsies from esophagis were negative. Review of Systems All systems: negative Constitutional: Reports as per HPI Past Medical History Past Medical History: Atrial Fibrillation, Asthma, Heart Failure, COPD, Diabetes Mellitus, GERD/Reflux, Liver Disease, Pneumonia, Renal Disease, Respiratory Disorder, Skin Disorder Additional Past Medical History / Comment(s): Severe mitral valve stenosis and severe tricuspid valve regurgitation, O2 at 5L/NC ATC, current decub lower back per pt, UTI with sepsis, anemia, elevated liver enzymes in the past, chronic renal dx, Afib and has had RVR in past, chronic back pain. History of Any Multi-Drug Resistant Organisms: VRE Year Discovered:: 10/25/16 MDRO Source:: Urine Past Surgical History: Hysterectomy Additional Past Surgical History / Comment(s): 2 mitral valve balloon valvuloplasty, colonoscopy, PICC line insertion (since removed). Past Anesthesia/Blood Transfusion Reactions: No Reported Reaction Additional Past Anesthesia/Blood Transfusion Reaction / Comm: Pt has received blood in past without reaction. Additional Psychological History / Comment(s): aleksandr. Lives with adult daughter and her spouse. Has nebulizer and glucose monitor. no experience or international travel. No animal exposures. Positive tobacco use. No current alcohol or injection drug use Smoking Status: Current every day smoker - Past Family History Father Family Medical History: Dementia Additional Family Medical History / Comment(s): Father is in his 80's Mother Family Medical History: Myocardial Infarction (PR) Additional Family Medical History / Comment(s): valve disorder. Mother of a PR in her 30's Medications and Allergies Home Medications Medication Instructions Recorded Confirmed Type HYDROcodone/APAP 10-325MG [[place] 1 tab PO Q8H PRN 05/19/15 05/02/17 History 10-325] Ipratropium/Albuterol Sulfate 1 puff INHALATION RT-QID PRN 05/19/15 05/02/17 History [Combivent Respimat Inhaler] Albuterol Nebulized [Ventolin 2.5 mg INHALATION RT-QID PRN 02/01/17 05/02/17 History Nebulized] Digoxin [Digitek] 125 mcg PO DAILY 02/01/17 05/02/17 History Atorvastatin [Lipitor] 40 mg PO HS 05/02/17 05/02/17 History Furosemide [Lasix] 40 mg PO BID 05/02/17 05/02/17 History Montelukast [Singulair] 10 mg PO HS 05/02/17 05/02/17 History Potassium Chloride ER [K-Dur 10] 10 meq PO DAILY 05/02/17 05/02/17 History Warfarin [Coumadin] 2 mg PO HS 05/02/17 05/02/17 History traZODone HCL [Desyrel] 50 mg PO HS 05/02/17 05/02/17 History Allergies Allergy/AdvReac Type Severity Reaction Status Date / Time aspirin Allergy Unknown Verified 05/02/17 08:20 Physical Exam Vitals: Vital Signs Temp Pulse Pulse Resp BP BP Pulse Ox 05/24/17 15:28 79 18 119/61 100 05/24/17 15:23 95 05/24/17 15:11 94 05/24/17 11:23 76 05/24/17 11:14 72 05/24/17 08:41 73 18 113/61 100 05/24/17 08:00 73 18 05/24/17 07:55 76 05/24/17 07:49 74 05/24/17 00:00 83 16 05/23/17 22:48 97.9 F 83 16 133/68 100 05/23/17 20:43 114/62 05/23/17 20:34 73 05/23/17 20:12 73 100 Intake and Output 05/24/17 05/24/17 05/24/17 06:59 14:59 22:59 Intake Total 740 1420 Balance 740 1420 Intake: IV 160 0.9 160 Oral 580 1420 Other: Voiding Method Bedside Commode Bedside Commode # Voids 4 Weight 43.5 kg 43.5 kg Patient Weight 05/25/17 06:59 Weight 43.5 kg - Constitutional General appearance: cooperative, disheveled, mild distress, thin - EENT Eyes: anicteric sclerae, EOMI, poor dentition - Neck Neck: no lymphadenopathy - Respiratory Respiratory: bilateral: diminished, wheezing (scattered) - Cardiovascular Rhythm: irregularly irregular Abnormal Heart Sounds: systolic murmur, diastolic murmur leg Peripheral Edema: bilateral: None - Gastrointestinal General gastrointestinal: no absent bowel sounds, no decreased bowel sounds, no distended, hepatomegaly, no hyperactive bowel sounds, normal bowel sounds, no organomegaly, no rigid, scaphoid, soft, no splenomegaly, no tenderness, no umbilical hernia, no ventral hernia - Integumentary Integumentary: pale - Neurologic Neurologic: CNII-XII intact - Musculoskeletal Musculoskeletal: generalized weakness - Psychiatric Psychiatric: A&O x's 3, appropriate affect Results CBC & Chem 7: 05/24/17 07:27 05/24/17 07:27 Labs: Abnormal Lab Results - Last 24 Hours (Table) 05/23/17 05/23/17 05/23/17 Range/Units 17:33 20:17 22:22 WBC (3.8-10.6) k/uL RBC (3.80-5.40) m/uL Hgb (11.4-16.0) gm/dL Hct (34.0-46.0) % MCV (80.0-100.0) fL MCH (25.0-35.0) pg MCHC (31.0-37.0) g/dL RDW (11.5-15.5) % Neutrophils # (Manual) (1.3-7.7) k/uL Nucleated RBCs (0-0) /100 WBC PT (9.0-12.0) sec INR (<1.2) Carbon Dioxide (22-30) mmol/L BUN (7-17) mg/dL POC Glucose (mg/dL) 206 H 220 H 61 L (75-99) mg/dL 05/24/17 05/24/17 05/24/17 Range/Units 07:27 07:27 07:27 WBC 15.7 H (3.8-10.6) k/uL RBC 3.71 L (3.80-5.40) m/uL Hgb 8.2 L (11.4-16.0) gm/dL Hct 27.8 L (34.0-46.0) % MCV 74.8 L (80.0-100.0) fL MCH 22.2 L (25.0-35.0) pg MCHC 29.6 L (31.0-37.0) g/dL RDW 19.9 H (11.5-15.5) % Neutrophils # (Manual) 11.3 H (1.3-7.7) k/uL Nucleated RBCs 5 H (0-0) /100 WBC PT 22.5 H (9.0-12.0) sec INR 2.3 H (<1.2) Carbon Dioxide 31 H (22-30) mmol/L BUN 36 H (7-17) mg/dL POC Glucose (mg/dL) (75-99) mg/dL 05/24/17 Range/Units 11:07 WBC (3.8-10.6) k/uL RBC (3.80-5.40) m/uL Hgb (11.4-16.0) gm/dL Hct (34.0-46.0) % MCV (80.0-100.0) fL MCH (25.0-35.0) pg MCHC (31.0-37.0) g/dL RDW (11.5-15.5) % Neutrophils # (Manual) (1.3-7.7) k/uL Nucleated RBCs (0-0) /100 WBC PT (9.0-12.0) sec INR (<1.2) Carbon Dioxide (22-30) mmol/L BUN (7-17) mg/dL POC Glucose (mg/dL) 134 H (75-99) mg/dL Microbiology - Last 24 Hours (Table) 05/05/17 16:15 Acid Fast Bacilli Smear - Final Pleural Fluid Acid Fast Bacilli Culture - Preliminary Comments: Pleural fluid path report reviewed CT scan - abdomen: report reviewed CT scan - chest: report reviewed Assessment and Plan (1) Microcytic hypochromic anemia Narrative/Plan: Likely a multi-factorial condition. Pt likely has GI blood losses from anticoagulation. She has history of ETOH abuse that has likely damaged her bone marrow, then additional insult of sepsis has taxed her marrow and ability produce RBCs. Reticulocyte count has been ordered. Labs that have drawn have been evaluated, no paraproteinemia or vitamin deficiency noted. Recommend cont monitoring of Hgb, transfuse to keep Hgb >7. Pt has been seen by GI with plans for outpatient endoscopy. Pt should follow with PCP for routine CBC monitoring Will follow labs and make further recommendations as appropriate. Status: Chronic
[2017-05-24 17:27] LABS: Glucose,Whole Blood 238 mg/dL (75-99)
[2017-05-24] MEDS ORDERED: WARFARIN 2 MG TAB PO SCH (18:00)
[2017-05-24 20:16] LABS: Glucose,Whole Blood 260 mg/dL (75-99)
[2017-05-24] MEDS: ATORVASTATIN 40 MG TAB PO SCH (20:32)
[2017-05-24] MEDS: MONTELUKAST 10 MG TAB PO SCH (20:32)
[2017-05-24 22:41] VITALS: TEMP 97.6
[2017-05-25] MEDS: ALPRAZolam 0.5 MG TAB PO PRN (00:38)
[2017-05-25] MEDS: HYDROmorphone 1 MG/ML 1 ML SYRINGE IVP SCH (00:39)
[2017-05-25] MEDS: traZODone HCL 50 MG TAB PO SCH (01:40)
[2017-05-25] MEDS: IPRATROPIUM-ALBUTEROL 3 ML NEB INHALATION SCH ×3 (07:13→15:26)
[2017-05-25] MEDS: BUDESONIDE 0.5 MG/2 ML NEBU INHALATION SCH (07:13)
[2017-05-25] MEDS: HYDROmorphone 1 MG/ML 1 ML SYRINGE IVP PRN (07:19)
[2017-05-25 07:31] LABS: Glucose,Whole Blood 115 mg/dL (75-99)
[2017-05-25] MEDS: INSULIN LISPRO (humaLOG) 300 UNIT/3 ML VIAL SQ SCH ×2 (08:09→12:38)
[2017-05-25] MEDS: POTASSIUM CHLORIDE ER 10 MEQ TAB.ER.PRT PO SCH (08:12)
[2017-05-25] MEDS: FUROSEMIDE 40 MG TAB PO SCH (08:12)
[2017-05-25] MEDS: DIGOXIN 125 MCG TAB PO SCH (08:12)
[2017-05-25] MEDS: guaiFENesin 600 MG TABLET.ER PO SCH (08:12)
[2017-05-25] MEDS: DOCUSATE 100 MG CAP PO SCH (08:12)
[2017-05-25] MEDS: CEFUROXIME 250 MG TAB PO SCH (08:12)
[2017-05-25] MEDS: predniSONE 20 MG TAB PO SCH (08:17)
[2017-05-25 08:20] VITALS: BP 129/73; RESP 18
[2017-05-25] MEDS ORDERED: predniSONE 10 MG TAB PO SCH (09:00)
[2017-05-25 09:18] LABS: Anisocytosis Moderate; Basophils % (A) 0 %; CH 22.4; CHCM 30.1; Eosinophils # (A) 0.1 k/uL (0-0.7); Eosinophils % (A) 1 %; HDW 4.01; HGB 8.4 gm/dL (11.4-16.0); Hypochromasia Marked; Luc # (Auto) 0.14; Luc % (Auto) 1; Lymphocytes % (A) 12 %; MCH 21.7 pg (25.0-35.0); MCV 74.8 fL (80.0-100.0); Mean Platelet Volume 7.7; Microcytosis Moderate; Monocytes # (A) 0.8 k/uL (0-1.0); Monocytes % (A) 5 %; Neutrophils # (A) 13.2 k/uL (1.3-7.7); Neutrophils % (A) 82 %; Poikilocytosis Moderate; RBC 3.88 m/uL (3.80-5.40); WBC 16.1 k/uL (3.8-10.6); WBC (Perox) 17.35
[2017-05-25 09:21] LABS: INR 2.2 (<1.2); Prothrombin Time 20.9 sec (9.0-12.0)
[2017-05-25 09:25] LABS: Reticulocyte % 4.7 % (0.5-2.0)
--- NOTE | 2017-05-25 11:34 | P.PN ---
Subjective 05/02/17 This is a 57-year-old female patient being seen, examined and evaluated. Patient is well-known to our services. This Patient comes in with complaints of shortness of breath that had been increasing over the last few days. The patient does have a significant medical history for CHF, COPD that is severe, chronic persistent asthma but severe, atrial fibrillation, renal insufficiency and liver disease. This patient has a known history for reoccurring pneumonia as well. Patient states she uses 4-5 L of supplemental oxygen at home at all times. Upon examination the patient's resting up in bed on 5 L of supplemental oxygen, she states she has shortness of breath with any minimal exertion as well as extensive conversation. Chest x-ray has been reviewed and shows an increasing right pleural effusion which is associated with atelectasis, possible pulmonary artery hypertension, and congestive heart failure. 05/03/17 upon examination today the patient's resting up in bed and continues to be on 5 L of supplemental oxygen. Patient continues to have shortness of breath with any minimal exertion and extensive conversation. Patient did undergo an ultrasound of the chest yesterday which revealed a right pleural effusion fluid pocket of 10.4 cm this has increased significantly since her last ultrasound of the chest which was done 02/08/2017 which showed a right pleural effusion pocket of 4.2 at that time. During that admission in January the effusion was too small to undergo a thoracentesis. Of note ,since its progression, the patient is a candidate to have the thoracentesis performed in regards to size. However the patient was on Coumadin for chronic A. fib and her INR yesterday was 2.9. Yesterday we discontinued the Coumadin and put the patient on Lovenox in preparation for thoracentesis. A repeat INR was performed today and is currently 3.6. We would like the patient's INR to be closer to 1.4 before we perform the thoracentesis. Repeat labs will be drawn tomorrow. 05/04/17 examination today the patient's resting up in bed and continues on 5 L of supplemental oxygen. Patient states she is a little less short of breath today than previously. However she still continues to have shortness of breath with exertion. Patient's INR today was 3.7, which is still too high to undergo a thoracentesis. Labs have been reviewed. We truly the increase in INR due to the patient being on Levaquin as a side effect. 05/05/17- upon examination today the patient is resting up in bed and continues on the 5 L of supplemental oxygen. The patient's INR today is 1.3 therefore we can go forth with the thoracentesis. The procedure as well as the risk and benefits have been discussed at length with the patient QUESTIONS have been answered. After the thoracentesis is completed the fluid will be sent for lab workup. The patient will be able to start back on her Coumadin tonight. The patient should continue with Lovenox until her INR is more than 1.8. Patient continues to have shortness of breath with exertion. 05/06/17- patient did undergo a thoracentesis yesterday. 1.6 L of clear yellow pleural fluid was removed. It was discovered on the post x-ray at the patient did have a 20% pneumothorax. The patient was asymptomatic at that time. The patient was to be watched closely overnight and have a repeat chest x-ray that evening which was stable and another one this morning which dates show a possible slight increase in the pneumothorax. CT of the chest without contrast was obtained and results are not readily available. We will consult cardiothoracic to follow the patient and interventional radiology to place a pigtail catheter. Upon examination the patient is resting up in bed and despite the pneumothorax the patient states her breathing is better today after having the fluid removed. Patient is still requiring 4-5 L of supplemental oxygen however she said her shortness of breath has decreased. Patient is afebrile no further complaints. 05/07/17 and 05/08/17, please refer to DR. JULIO Gao note, as he covered these days. 05/09/17-upon examination today the patient's resting up in bed on 5 L of supplemental oxygen. Chest x-rays have been reviewed and the patient still has a pneumothorax that has not improved, pneumothorax remains about 30%. Therefore the patient will ultimately require a chest tube placement by interventional radiology. Patient continues to feel short of breath and tight. Today she states she feels slightly worse than yesterday in regards to her breathing. We'll recheck her CBC CMP and PT/INR. Patient has had her Coumadin on hold since pneumothorax and she has been receiving Lovenox. 05/10/17- on examination today the patient has just came back from interventional radiology after pigtail chest tube insertion. There is approximately 300 ML's of serosanguineous drainage noted upon arrival and the pleural VAC has not been attached to suction yet at this time. Patient will be hooked up to wall suction. Patient states that this initially received the chest tube she had immediate relief in her shortness of breath which decreased significantly. Patient states she is breathing much better post procedure. Patient is noted to be sitting up in bed and continues on 5 L of supplemental oxygen. Labs and radiology reports have been reviewed. 05/11/17- upon examination today the patient is resting up in bed and states she feels better today. Patient continues on 5 L of supplemental oxygen. Patient still has her chest tube in and has had approximately 700 ML's of serosanguineous output total since it was inserted. Her appetite has improved slightly as well. Patient states she is much more comfortable today. She continues on IV Solu-Medrol, updrafts and antibiotics. 05/12/17- today the patient is seen resting in bed on 4-5 L of oxygen. The patient states that she continues to have a productive cough with congestion. She is breathing easier with less effort. Appetite continues to improve. Her chest tube shows an output of approximately 875 ML's total output. Continues to be hooked up to suction. States her appetite continues to wax and wane. Chest x-ray from today has been reviewed patient's hydropneumothorax has been improved and remains about 15%. 05/13/17-today the patient seen resting up in bed on 4-5 L of supplemental oxygen via nasal cannula. She continues to have a productive cough with congestion however she states this is slightly improved today. She continues to breathe easier with less effort. Currently she is eating. Her chest tube shows approximately a total of 1100 ML's of serosanguineous drainage. Coumadin is still currently on hold and she is utilizing Lovenox. Chest x-ray is pending. No further complaints no overnight events. She is utilizing her incentive spirometer and pulls volumes of 1750. We will decrease her steroids today. 05/14/17, patient seen and evaluated examined today she is complaining of some shortness of breath and congestion however not producing much sputum her chest x -ray from today has been reviewed very small residual pneumothorax and small effusions seen she has put out another 350 mL in the last 48 hours the pleural VAC in control is adequate chest tube is connected with the 20 cm water of section is doing IS regularly on 4-5 L oxygen with stable oxygenation 05/15/17, patient seen and evaluated examined care plan discussed with the nurse at length critical care time spent 35 minutes chest x-ray from today reviewed the laboratory data reviewed as well care plan discussed with the primary service, patient is complaining of some weakness and tiredness has been congested as well and slightly more short of breath however her chest x-ray looks much improved she had put out more than 300 mL and pleural VAC December chest x-ray from today reveal almost resolution of pneumothorax some reexpansion pulmonary edema in the right lower lobe versus right lower lobe pneumonia cannot be excluded she does have cough but no sputum is coming out she remains on 4 L oxygen, she is being planned for replacement of calcium transfusion of 2 unit packed RBC replacement of potassium and placement of new peripheral IVs antibiotics in the form of IV Zosyn is being started 05/16/17- upon examination today the patient is seen resting up in bed on 5 L of supplemental oxygen. Chest x-ray has been reviewed and does show improvement in the pneumothorax with some reexpansion pulmonary edema in the right lower lobe versus right lower lobe pneumonia cannot be excluded. Patient's electrolytes known to be off therefore nephrology will be consult it. Patient is also being seen by infectious disease and cardiology. Patient's pleural low back continues to be patent and draining serosanguineous fluids. The pleural VAC chamber was changed today at 6 AM. The patient is noted that have 70 ML out between 6 AM and 9 AM. Patient's hemoglobin is stable today at 8.6. No further signs of bleeding. Patient is using her incentive spirometer and pulling volumes of approximately thousand ML. 05/17/17 upon examination the patient is resting up in bed on [address] Hinds did remove the chest tube without complication. Chest x-ray has been obtained postprocedure and shows no complication post chest tube removal, no pneumothorax. Patient has been hemodynamically stable. She is resting more comfortably. Hemoglobin remained stable at 8.6. She denies any pain or discomfort at this time. She continues to be followed by nephrology as well as infectious disease. 05/18/17 upon examination today the patient's resting up in bed on 5 L of supplemental oxygen. Chest tube insertion site noted to have small amount of serosanguineous drainage on the dressing. Chest x-ray has been reviewed and is stable. Labs reviewed. Hemoglobin today is 8.5. Patient had no overnight events no further complaints. 05/19/17- patient is seen and examined today on rounds. Patient continues on 5 L of supplemental oxygen. Chest tube site clean and dry and intact no drainage noted. Patient continues to complain of some congestion however Mucinex is helping. Labs have been reviewed, hemoglobin 7.8 today. Coumadin was restarted yesterday, INR is 1.1. We can discontinue the Lovenox once INR is greater than 2. No overnight events. 05/20/17- patient is being seen in examined and evaluated on rounds today. She continues on supplemental oxygen of 5 L via nasal cannula. Continues with shortness of breath with exertion. Congestion slightly improving. Hemoglobin today is 7.6 CO2 was noted to be 41. Chest x-ray and labs were reviewed. Patient does have a pleural effusion however we will try to medically manage it at this time we do not want to go forth with a thoracentesis at this point. Follow she is on consult and has adjusted medications due to alkalosis related to diuretic induced volume contraction. Patient was placed on Diamox 250 mg twice a day. Electrolytes monitored and being replaced per protocol. 05/21/17 patient's seen and evaluated exam and on fifth floor remains on supplemental oxygen her CO2 was noted to be elevated likely related to multifactorial processes including hypercapnia as well as diuresis she is short of breath but overall stable no chest pain no cough or sputum production remains on broad-spectrum antibiotics patient has been resumed on Coumadin noted chest x-ray revealed reaccumulation of fluid on the right side but no hydropneumothorax has been seen no plans for thoracentesis at this point of time 05/22/17, patient seen and evaluated exam and on fifth floor overall continued to be on supplemental oxygen her respiratory status overall is not much change from baseline get short of breath on activity and exertion denies any chest pain , chest x-ray from today reviewed no pleural effusion is present, basal atelectasis has been demonstrated again versus pneumonia, would recommend to continue deep breathing exercises incentive spirometry and empiric antibiotics 05/23/17 is being seen in evaluated and examined today on rounds. Patient continues on 3-4 L of supplemental oxygen today. She continues to have shortness of breath with activity or exertion. Patient's labs have been reviewed for the day the patient is noted to have a hemoglobin of 7.0. The patient is getting 1 unit of packed red blood cells for transfusion. No overt signs and symptoms of bleeding noted. Patient states she feels tired and weak today. Continues to have mild cough and congestion. 05/24/17 - patient is being seen and examined and evaluated today on rounds. She continues to have shortness breath with exertion or any minimal activity. Continues on 3-4 L of supplemental oxygen. Today her hemoglobin has improved to 8.2, status post blood transfusion yesterday. Patient will be started on oral antibiotics today per infectious disease. She was also switched to oral steroids yesterday as well. Rehab facility and/or palliative care has been suggested. Her Lovenox has also been discontinued now that her INR is 2.3. 05/25/17- Patient is being seen examined and evaluated today on rounds. Patient continues to have shortness of breath with exertion and minimal activity. Continues on 3-4 L of supplemental oxygen. Patient is preparing for discharge today. Hemoglobin is around to be stable at 8.4 today, INR is 2.2. Patient is declining to go to a rehab facility she is also declining home care at this time. Objective - Vital Signs Vital signs: Vital Signs Temp 97.6 F 05/25/17 07:00 Pulse 92 05/25/17 11:11 Resp 18 05/25/17 08:00 BP 129/73 05/25/17 07:00 Pulse Ox 100 05/25/17 07:00 Intake & Output 05/24/17 05/25/17 05/25/17 18:59 06:59 18:59 Intake Total 1420 1240 1600 Output Total 700 Balance 720 1240 1600 Weight 43.5 kg 43 kg 43 kg Intake: IV 160 0.9 160 Oral 1420 1080 1600 Output: Urine 700 Other: Voiding Method Bedside Commode Bedside Commode Bedside Commode # Voids 1 5 # Bowel Movements 1 1 1 - Exam GENERAL EXAM: Alert, cachectic, comfortable in no apparent distress. HEAD: Normocephalic. EYES: Normal reaction of pupils, equal size. NOSE: Clear with pink turbinates. THROAT: No erythema or exudates. NECK: No masses, no JVD. CHEST: No chest wall deformity. LUNGS: Poor air entry is present, scattered rhonchi as well as expiratory wheezes noted throughout. Right-sided pigtail chest tube has been removed dressing is in place. CVS: S1 and S2 normal with no audible mumurs, regular rhythm. ABDOMEN: No hepatosplenomegaly, normal bowel sounds, no guarding or rigidity. EXTREMITIES: Trace edema noted, pedal pulses palpable. SKIN: No rashes, dressing in place to coccyx wound CENTRAL NERVOUS SYSTEM: No focal deficits, tone is normal in all 4 extremities. - Labs CBC & Chem 7: 05/25/17 08:06 05/24/17 07:27 Labs: Abnormal Lab Results - Last 24 Hours (Table) 05/24/17 05/24/17 05/24/17 Range/Units 11:07 17:17 20:12 WBC (3.8-10.6) k/uL Hgb (11.4-16.0) gm/dL Hct (34.0-46.0) % MCV (80.0-100.0) fL MCH (25.0-35.0) pg MCHC (31.0-37.0) g/dL RDW (11.5-15.5) % Neutrophils # (1.3-7.7) k/uL Retic Count (0.5-2.0) % PT (9.0-12.0) sec INR (<1.2) POC Glucose (mg/dL) 134 H 238 H 260 H (75-99) mg/dL 05/25/17 05/25/17 05/25/17 Range/Units 06:57 08:06 08:06 WBC 16.1 H (3.8-10.6) k/uL Hgb 8.4 L (11.4-16.0) gm/dL Hct 29.0 L (34.0-46.0) % MCV 74.8 L (80.0-100.0) fL MCH 21.7 L (25.0-35.0) pg MCHC 29.0 L (31.0-37.0) g/dL RDW 21.0 H (11.5-15.5) % Neutrophils # 13.2 H (1.3-7.7) k/uL Retic Count (0.5-2.0) % PT 20.9 H (9.0-12.0) sec INR 2.2 H (<1.2) POC Glucose (mg/dL) 115 H (75-99) mg/dL 05/25/17 Range/Units 08:06 WBC (3.8-10.6) k/uL Hgb (11.4-16.0) gm/dL Hct (34.0-46.0) % MCV (80.0-100.0) fL MCH (25.0-35.0) pg MCHC (31.0-37.0) g/dL RDW (11.5-15.5) % Neutrophils # (1.3-7.7) k/uL Retic Count 4.7 H (0.5-2.0) % PT (9.0-12.0) sec INR (<1.2) POC Glucose (mg/dL) (75-99) mg/dL Assessment and Plan Plan: Assessment Right-sided pneumothorax Right-sided pleural effusion with right sided pneumonia suspect mixed/gram- negative in nature Acute exacerbation of chronic obstructive pulmonary disease Acute on chronic hypoxic respiratory failure Congestive heart failure Probable pulmonary hypertension Atrial fibrillation Chronic anemia Severe protein calorie malnutrition Hypocalcemia Plan Patient could be discharged from a pulmonary standpoint in the near future. Patient should consider rehab facility and/or palliative care/hospice due to her multiple comorbidities and end-stage COPD. Patient continues to decline rehab facility and/or home care. Medications have been reviewed and will be continued as ordered. Continue with IV antibiotics. Steroids and budesonide as well as Mucinex. Repeat labs in the morning. Cardiology on consult. Infectious disease on consult. Nephrology on consult. Continue with pulmonary hygiene, coughing and deep breathing exercises, and supportive care. Supplemental oxygen to maintain oxygen saturations of 92% or better. Continue nebulizer treatments. GI and DVT prophylaxis. Ensure 3 times a day with meals. We will continue to monitor labs/results and adjust treatment as necessary. Further recommendations pending. I performed an examination of the patient and discussed their management with the nurse practitioner. I have reviewed the nurse practitioner's note and agree with the documented findings and plan of care.
[2017-05-25 11:53] LABS: Glucose,Whole Blood 274 mg/dL (75-99)
[2017-05-25] MEDS: HYDROcodone/APAP 10-325MG 1 EACH TAB PO PRN (12:37)
[2017-05-25] MEDS: FERROUS SULFATE 325 MG TAB PO SCH (12:37)
--- NOTE | 2017-05-25 13:41 | P.DS ---
Providers Date of admission: 05/02/17 04:27 Attending physician: Frank Cain Consults: 05/02/17 09:00 Consult Physician Routine Consulting Provider: Segun Hinds Consult Reason/Comments: pneumonia, copd Do you want consulting provider notified?: Yes 05/02/17 10:13 Consult Physician Routine Consulting Provider: Colette Vasquez Consult Reason/Comments: Pulmonary Hypertension/CHF Do you want consulting provider notified?: Already Contacted 05/02/17 13:33 Consult Physician Routine Consulting Provider: Raimundo Castellon Consult Reason/Comments: pressure injury to coccyx Do you want consulting provider notified?: Yes 05/06/17 08:49 Consult Physician Stat Consulting Provider: Peter Romano Consult Reason/Comments: pneumothorax Do you want consulting provider notified?: Yes 05/15/17 10:52 Consult Physician Stat Consulting Provider: Annie Albarado Consult Reason/Comments: calcium level of 6.4 Do you want consulting provider notified?: Already Contacted 05/23/17 08:53 Consult Physician Routine Consulting Provider: Glen Agudelo Consult Reason/Comments: anemia Do you want consulting provider notified?: Yes Primary care physician: Morales Eubanks This is the discharge summary dictated by Dr. Ant M.D. [facility] in the temporary absence of Dr. Morales Eubanks is a PCP and attending. Patient will be following with Dr. Eubanks on his return from vacation. Date of service 05/25/2017 discharge. Date of admission 05/02/[address] Morales Eubanks. Consulting physician: Dr. Winn/Manish Vasquez, Dr. Segun Hinds pulmonary. Dr. Naik cement cardiology Dr.Foud Roamno cardiac surgeon and thoracic surgeon Dr. Albarado/Dr. Rene nephrology. Dr.kvita cummings gastroenterology. glen Davis hematology oncology Diagnosis: #1 COPD shortness of breath right pleural effusion. #2 status post thoracentesis with the obtaining sero-sanguinous fluid [address] Segun Hinds #3 status post chest tube on 05/10/2017 for loculated pneumothorax by cross country truck driver Dr. Raimundo Story. It resolved. #4 steroid dependent COPD and severe persistent asthma. With the possibility of underlying fibrosis, bronchiectasis was documented by the computed tomography scan of the chest. #5 severe mitral stenosis nonoperable, severe tricuspid regurg, pulmonary hypertension severe. #6 hyperglycemia with normal hemoglobin A1c secondary to steroid currently stable. #7 history of liver cirrhosis, recovery of her platelet with a history of AVM and varicocele with the possibility of trickling of GI bleeding. Recommendation of hematology oncology to follow-up with the CBC only and with the recommendation of GI no farther treatment and to follow as outpatient with the gastroenterology. #8 patient transfused 1 unit of packed RBCs and also treated of iron infusion. Nephrology. #9 leukocytosis persistent on antibiotic with the underlying steroid dependent as well as bronchiectasis. #10 history of hypocalcemia and elevated ETH recovered with the treatment of vitamin D2 50,000 once a week. #11 atrial fibrillation currently controlled ventricular response, chronic on anticoagulation with the current on discharge PT INR is therapeutic INR 2.2. #12 chronic pain syndrome with muscular aching and asthenia. #13 chronic respiratory failure on oxygen dependent. #14 macrocytic hypochromic anemia with the positive stool for Hemoccult seen by the gastroenterology. Initial presentation to the emergency room with the shortness of breath respiratory failure pleural effusion on the right sided Patient has recurrent admission to the hospital admitted initially under care of Dr. Eubanks is her PCP subsequently he transferred the care for my self to follow the patient as he out of the state. As patient seen and evaluated and laboratory was obtained and a computed tomography scan discussion with his several physician consulting physician and adjusting her medication. Patient has also social problem and they tried to discharge her earlier in April however there is no place to live and she refused to go to shelter with the social welfare research worker and discharge planning has been working for helping the patient. [id number] exam on discharge: She is awake alert oriented 3. No confusion and no agitation her pain is has been controlled well with the current medication. Vital sign today her blood pressure 129/73 mean pressure 91, temperature 90.7, pulse 68, respiratory rate 16 nonlabored, she is on oxygen 3 L 100%. HEENT negative Neck supple no JVD no thyromegaly no lymphadenopathy trachea midline. Chest appreciated bilaterally with the minimum rhonchi's on the right lower lobe the area of loculation of fluid which has been aspirated and patient feeling well Heart irregular irregularity disease with atrial fibrillation compensated with the underlying severe mitral stenosis. Abdomen soft positive bowel sounds no palpable masses with history of liver cirrhosis as well as a CAT scan of the abdomen indicating highly possible prior to that as well as a discussion with Dr. Agudelo hematology oncology indicating that he did see the patient in the past and she had at that time liver cirrhosis with the probability of alcohol intake in the past. Extremities no edema positive pulses and able to ambulate. Assessment and plan: Patient stable general condition to be discharged today, her blood sugar today 1 :15 in a.m. Her white count is 16.1 and gradually improving, Dr. Raimundo Castellon infectious disease left her the antibiotic Ceftin 500 mg twice a day for 14 days. Patient will follow with Dr. Morales Eubanks on his return, follow-up was the gastroenterology as well and hematology oncology. Patient will be on the Coumadin pro time and in INR and has been followed by cardiology to be checked the PT and INR. Current INR is 2.2 which is therapeutic on 2 mg. Patient will be discharged with a visiting nurse and medication patient has a nebulizer at home and will continue the inhalation therapy. Reviewed her medication as well as her RN zhanna did review the medication with the patient as well. Time spent 1 hour. Plan - Discharge Summary New Discharge Prescriptions: New Cefuroxime Axetil [Ceftin] 500 mg PO BID #28 tab No Action HYDROcodone/APAP 10-325MG [[place] 10-325] 1 tab PO Q8H PRN PRN Reason: Pain Ipratropium/Albuterol Sulfate [Combivent Respimat Inhaler] 1 puff INHALATION RT-QID PRN PRN Reason: Shortness Of Breath Albuterol Nebulized [Ventolin Nebulized] 2.5 mg INHALATION RT-QID PRN PRN Reason: Shortness Of Breath Digoxin [Digitek] 125 mcg PO DAILY Warfarin [Coumadin] 2 mg PO HS Montelukast [Singulair] 10 mg PO HS Furosemide [Lasix] 40 mg PO BID traZODone HCL [Desyrel] 50 mg PO HS Potassium Chloride ER [K-Dur 10] 10 meq PO DAILY Atorvastatin [Lipitor] 40 mg PO HS Discharge Medication List HYDROcodone/APAP 10-325MG [[place] 10-325] 1 tab PO Q8H PRN 05/19/15 [History] Ipratropium/Albuterol Sulfate [Combivent Respimat Inhaler] 1 puff INHALATION RT- QID PRN 05/19/15 [History] Albuterol Nebulized [Ventolin Nebulized] 2.5 mg INHALATION RT-QID PRN 02/01/17 [ History] Digoxin [Digitek] 125 mcg PO DAILY 02/01/17 [History] Atorvastatin [Lipitor] 40 mg PO HS 05/02/17 [History] Furosemide [Lasix] 40 mg PO BID 05/02/17 [History] Montelukast [Singulair] 10 mg PO HS 05/02/17 [History] Potassium Chloride ER [K-Dur 10] 10 meq PO DAILY 05/02/17 [History] Warfarin [Coumadin] 2 mg PO HS 05/02/17 [History] traZODone HCL [Desyrel] 50 mg PO HS 05/02/17 [History] Cefuroxime Axetil [Ceftin] 500 mg PO BID #28 tab 05/25/17 [Rx] Follow up Appointment(s)/Referral(s): Morales Eubanks MD [Primary Care Provider] - 1 Week ( office is closed.patient will have to call and schedule own appt.) Manuela Cummings MD [STAFF PHYSICIAN] - 06/13/17 1:00 pm Segun Hinds MD [STAFF PHYSICIAN] - 1 Week ( office is closed on wednesdays.patient will have to call and schedule own appt) Discharge Disposition: HOME WITH HOME HEALTH SERVICES
[2017-05-25 15:36] VITALS: PULSE 93
[2017-05-26] MEDS ORDERED: predniSONE 20 MG TAB PO SCH (09:00)
[2017-05-27 07:30] LABS: Nicotinamide 25 ng/mL; Nicotinic Acid None Detected; Nicotinuric Acid None Detected
== END 2017-05-25 17:16 | disposition home health service (06) | DRG 291 ==
LOC: EC 02:04 → 4MS4W 04:27 → 5MS5E 07:01
PROVIDERS: ADMIT Internal Medicine; ATTEND Internal Medicine
PROC: 0W9930Z Drainage of Right Pleural Cavity with Drainage Device, Percutaneous Approach (ICD-10-PCS; principal; 2017-05-05)
PROC: 0W993ZZ Drainage of Right Pleural Cavity, Percutaneous Approach (ICD-10-PCS; 2017-05-10)
PROC: 0WP9X0Z Removal of Drainage Device from Right Pleural Cavity, External Approach (ICD-10-PCS; 2017-05-17)
DX: I13.0 Hypertensive heart and chronic kidney disease with heart failure and stage 1 through stage 4 chronic kidney disease, or unspecified chronic kidney disease (principal); E43 Unspecified severe protein-calorie malnutrition; J96.21 Acute and chronic respiratory failure with hypoxia; A41.9 Sepsis, unspecified organism; J15.6 Pneumonia due to other Gram-negative bacteria; E87.4 Mixed disorder of acid-base balance; L89.152 Pressure ulcer of sacral region, stage 2; I42.9 Cardiomyopathy, unspecified; I50.43 Acute on chronic combined systolic (congestive) and diastolic (congestive) heart failure; F11.20 Opioid dependence, uncomplicated; J44.0 Chronic obstructive pulmonary disease with (acute) lower respiratory infection; J44.1 Chronic obstructive pulmonary disease with (acute) exacerbation; J93.9 Pneumothorax, unspecified; J98.11 Atelectasis; D69.6 Thrombocytopenia, unspecified; E11.22 Type 2 diabetes mellitus with diabetic chronic kidney disease; I27.2 Other secondary pulmonary hypertension; E83.51 Hypocalcemia; D50.9 Iron deficiency anemia, unspecified; D63.8 Anemia in other chronic diseases classified elsewhere; E21.3 Hyperparathyroidism, unspecified; E55.9 Vitamin D deficiency, unspecified; E78.5 Hyperlipidemia, unspecified; E87.6 Hypokalemia; F17.200 Nicotine dependence, unspecified, uncomplicated; G89.4 Chronic pain syndrome; I08.3 Combined rheumatic disorders of mitral, aortic and tricuspid valves; I48.2 Chronic atrial fibrillation; J45.50 Severe persistent asthma, uncomplicated; J84.10 Pulmonary fibrosis, unspecified; K21.9 Gastro-esophageal reflux disease without esophagitis; K74.60 Unspecified cirrhosis of liver; N18.9 Chronic kidney disease, unspecified; T50.2X5A Adverse effect of carbonic-anhydrase inhibitors, benzothiadiazides and other diuretics, initial encounter; Z59.0 Homelessness; Z79.01 Long term (current) use of anticoagulants; Z79.4 Long term (current) use of insulin; Z79.52 Long term (current) use of systemic steroids; Z79.899 Other long term (current) drug therapy; Z81.8 Family history of other mental and behavioral disorders; Z82.49 Family history of ischemic heart disease and other diseases of the circulatory system; Z87.01 Personal history of pneumonia (recurrent); Z99.81 Dependence on supplemental oxygen; Z88.6 Allergy status to analgesic agent
CPT/HCPCS: 32551; 36415; 71010; 71020; 71035; 71250; 74150; 76604; 77012; 80048; 80053; 80162; 81001; 82180; 82272; 82306; 82330; 82550; 82553; 82607; 82652; 82728; 82945; 83036; 83540; 83550; 83615; 83735; 83880; 83970; 84100; 84157; 84207; 84425; 84484; 84591; 85025; 85027; 85045; 85379; 85610; 85730; 86738; 86850; 86900; 86901; 86920; 87040; 87070; 87086; 87102; 87116; 87205; 87206; 87449; 88108; 88305; 89050; 93005; 94640; 94760

== ENCOUNTER 2017-06-05 16:15 | Inpatient (IN) | payer OTHER ==
[2017-06-05] MEDS ORDERED: methylPREDNISolone SOD SUCCI 125 MG/2 ML VIAL IV STA (16:27)
--- NOTE | 2017-06-05 16:37 | ED ---
General Adult HPI - General Chief complaint: Shortness of Breath Stated complaint: diff breathing Time Seen by Provider: 06/05/17 16:15 Source: EMS, RN notes reviewed Mode of arrival: EMS Limitations: no limitations - History of Present Illness Initial comments: This is a 57-year-old female presents emergency Department stating she has a past medical history significant for significant valvular disease and her heart atrial fibrillation and COPD. Patient states she continues to smoke. Patient states about 3 days ago started having some shortness of breath in about 2 days ago she started coughing and coughing up sputum. Patient states her shortness of breath has increased to the point where she thought she needed to come to the hospital. Patient denies any fever chills that she has felt warm but she did not take temperature. Patient states she has some chest pain with coughing but has no chest pain currently. Patient states breathing treatments have helped but the shortness of breath returns quicker and critical over the last couple of days per patient denies any abdominal pain patient denies nausea vomiting or diarrhea. Patient denies headache patient denies numbness or weakness patient denies any lightheadedness dizziness or near syncopal episode. - Related Data Home Medications Medication Instructions Recorded Confirmed ALPRAZolam [Xanax] 0.25 mg PO BID PRN 06/05/17 06/05/17 Digoxin [Digitek] 125 mcg PO QAM 06/05/17 06/05/17 Docusate [Colace] 200 mg PO QAM 06/05/17 06/05/17 Ergocalciferol [Vitamin D2 50,000 unit PO WE 06/05/17 06/05/17 (DRISDOL)] Potassium Chloride ER [K-Dur 10] 10 meq PO QAM 06/05/17 06/05/17 Previous Rx's Medication Instructions Recorded Albuterol Nebulized [Ventolin 2.5 mg INHALATION RT-QID PRN #1 neb 05/25/17 Nebulized] Atorvastatin [Lipitor] 40 mg PO HS #30 05/25/17 Ferrous Sulfate [Iron (65 MG 325 mg PO W/LUNCH #30 tab 05/25/17 Elemental)] Furosemide [Lasix] 40 mg PO BID #60 05/25/17 HYDROcodone/APAP 10-325MG [[place] 1 tab PO Q8H PRN #45 tab 05/25/17 10-325] Ipratropium/Albuterol Sulfate 1 puff INHALATION RT-QID PRN #120 05/25/17 [Combivent Respimat Inhaler] ampul Montelukast [Singulair] 10 mg PO HS #30 05/25/17 Warfarin [Coumadin] 2 mg PO HS #30 05/25/17 predniSONE 20 mg PO DAILY #14 tab 05/25/17 traZODone HCL [Desyrel] 50 mg PO HS #30 05/25/17 Allergies Allergy/AdvReac Type Severity Reaction Status Date / Time No Known Allergies Allergy Verified 06/05/17 17:27 Review of Systems ROS Statement: Those systems with pertinent positive or pertinent negative responses have been documented in the HPI. ROS Other: All systems not noted in ROS Statement are negative. Past Medical History Past Medical History: Atrial Fibrillation, Asthma, Heart Failure, COPD, Diabetes Mellitus, GERD/Reflux, Liver Disease, Pneumonia, Renal Disease, Respiratory Disorder, Skin Disorder Additional Past Medical History / Comment(s): Severe mitral valve stenosis and severe tricuspid valve regurgitation, O2 at 5L/NC ATC, current decub lower back per pt, UTI with sepsis, anemia, elevated liver enzymes in the past, chronic renal dx, Afib and has had RVR in past, chronic back pain. History of Any Multi-Drug Resistant Organisms: VRE Date of last positivie culture/infection: 10/25/16 MDRO Source:: Urine Past Surgical History: Hysterectomy Additional Past Surgical History / Comment(s): 2 mitral valve balloon valvuloplasty, colonoscopy, PICC line insertion (since removed). Past Anesthesia/Blood Transfusion Reactions: No Reported Reaction Additional Past Anesthesia/Blood Transfusion Reaction / Comment(s): Pt has received blood in past without reaction. Past Psychological History: Anxiety Smoking Status: Current every day smoker Past Alcohol Use History: None Reported Past Drug Use History: None Reported - Past Family History Father Family Medical History: Dementia Additional Family Medical History / Comment(s): Father is in his 80's Mother Family Medical History: Myocardial Infarction ([place]) Additional Family Medical History / Comment(s): valve disorder. Mother of a [place] in her 30's General Exam - General Exam Comments Initial Comments: GENERAL: Patient is well-developed and well-nourished. Patient is nontoxic and well- hydrated and is in moderate distress. ENT: Neck is soft and supple. No significant lymphadenopathy is noted. Oropharynx is clear. Moist mucous membranes. Neck has full range of motion without eliciting any pain. EYES: The sclera were anicteric and conjunctiva were pink and moist. Extraocular movements were intact and pupils were equal round and reactive to light. Eyelids were unremarkable. PULMONARY: Patient has crackles bilaterally worse on the right than the left an extra wheezing. CARDIOVASCULAR: There is a regular rate and rhythm without any murmurs gallops or rubs. ABDOMEN: Soft and nontender with normal bowel sounds. No palpable organomegaly was noted. There is no palpable pulsatile mass. SKIN: Patient's legs have chronic color changes to the distal legs very dusky red color patient states is chronic. NEUROLOGIC: Patient is alert and oriented x3. Cranial nerves II through XII are grossly intact. Motor and sensory are also intact. Normal speech, volume and content. Symmetrical smile. MUSCULOSKELETAL: Normal extremities with adequate strength and full range of motion. No lower extremity swelling or edema. No calf tenderness. LYMPHATICS: No significant lymphadenopathy is noted PSYCHIATRIC: Normal psychiatric evaluation. Normal interpersonal interactions appears functionally intact in deals appropriately with others. No signs of depression. No signs of anxiety. Limitations: no limitations Course Vital Signs 06/05/17 06/05/17 06/05/17 16:16 17:23 18:00 Temperature 98 F Pulse Rate 82 93 97 Respiratory 25 H 20 20 Rate Blood Pressure 143/66 152/68 142/77 O2 Sat by Pulse 100 100 100 Oximetry 06/05/17 19:00 Temperature Pulse Rate 91 Respiratory 20 Rate Blood Pressure 152/68 O2 Sat by Pulse 100 Oximetry Medical Decision Making - Medical Decision Making EKG shows atrial fibrillation at a rate of 87 bpm QRS is 88 QT interval 338 QTC is 46 per patient does have some ST segment depression in precordial leads is also seen to a lesser degree in previous EKGs. Chest x-ray showed no acute abnormality.. patient received a breathing treatment and solu-medrol while in the emergency department. I reevaluated the patient she stated she felt considerably better. I spoke to the primary medical care doctor admitted the patient wrote admitting orders continued the breathing treatments and steroids on the floor. - Lab Data Result diagrams: 06/05/17 16:27 06/05/17 16:27 Lab Results 06/05/17 06/05/17 06/05/17 Range/Units 16:27 16:27 16:27 WBC 8.4 (3.8-10.6) k/uL RBC 4.93 (3.80-5.40) m/uL Hgb 10.5 L (11.4-16.0) gm/dL Hct 35.7 (34.0-46.0) % MCV 72.3 L (80.0-100.0) fL MCH 21.3 L (25.0-35.0) pg MCHC 29.4 L (31.0-37.0) g/dL RDW 17.5 H (11.5-15.5) % Plt Count 312 (150-450) k/uL Neutrophils % 82 % Lymphocytes % 14 % Monocytes % 2 % Eosinophils % 1 % Basophils % 0 % Neutrophils # 6.9 (1.3-7.7) k/uL Lymphocytes # 1.2 (1.0-4.8) k/uL Monocytes # 0.2 (0-1.0) k/uL Eosinophils # 0.1 (0-0.7) k/uL Basophils # 0.0 (0-0.2) k/uL Hypochromasia Marked Poikilocytosis Slight Anisocytosis Slight Microcytosis Moderate PT (9.0-12.0) sec INR (<1.2) APTT (22.0-30.0) sec Sodium 135 L (137-145) mmol/L Potassium 4.5 (3.5-5.1) mmol/L Chloride 97 L (98-107) mmol/L Carbon Dioxide 27 (22-30) mmol/L Anion Gap 11 mmol/L BUN 11 (7-17) mg/dL Creatinine 0.60 (0.52-1.04) mg/dL Est GFR (MDRD) Af Amer >60 (>60 ml/min/1.73 sqM) Est GFR (MDRD) Non-Af >60 (>60 ml/min/1.73 sqM) Glucose 145 H (74-99) mg/dL Plasma Lactic Acid Agustin (0.7-2.0) mmol/L Calcium 9.4 (8.4-10.2) mg/dL Magnesium 1.7 (1.6-2.3) mg/dL Total Bilirubin 1.1 (0.2-1.3) mg/dL AST 33 (14-36) U/L ALT 37 (9-52) U/L Alkaline Phosphatase 73 (38-126) U/L Total Creatine Kinase 44 (30-135) U/L CK-MB (CK-2) 3.8 H* (0.0-2.4) ng/mL CK-MB (CK-2) Rel Index 8.6 Troponin I 0.052 H* (0.000-0.034) ng/mL NT-Pro-B Natriuret Pep pg/mL Total Protein 6.3 (6.3-8.2) g/dL Albumin 3.8 (3.5-5.0) g/dL 06/05/17 06/05/17 06/05/17 Range/Units 16:27 16:27 16:27 WBC (3.8-10.6) k/uL RBC (3.80-5.40) m/uL Hgb (11.4-16.0) gm/dL Hct (34.0-46.0) % MCV (80.0-100.0) fL MCH (25.0-35.0) pg MCHC (31.0-37.0) g/dL RDW (11.5-15.5) % Plt Count (150-450) k/uL Neutrophils % % Lymphocytes % % Monocytes % % Eosinophils % % Basophils % % Neutrophils # (1.3-7.7) k/uL Lymphocytes # (1.0-4.8) k/uL Monocytes # (0-1.0) k/uL Eosinophils # (0-0.7) k/uL Basophils # (0-0.2) k/uL Hypochromasia Poikilocytosis Anisocytosis Microcytosis PT 12.8 H (9.0-12.0) sec INR 1.3 H (<1.2) APTT 27.3 (22.0-30.0) sec Sodium (137-145) mmol/L Potassium (3.5-5.1) mmol/L Chloride (98-107) mmol/L Carbon Dioxide (22-30) mmol/L Anion Gap mmol/L BUN (7-17) mg/dL Creatinine (0.52-1.04) mg/dL Est GFR (MDRD) Af Amer (>60 ml/min/1.73 sqM) Est GFR (MDRD) Non-Af (>60 ml/min/1.73 sqM) Glucose (74-99) mg/dL Plasma Lactic Acid Agustin 2.9 H* (0.7-2.0) mmol/L Calcium (8.4-10.2) mg/dL Magnesium (1.6-2.3) mg/dL Total Bilirubin (0.2-1.3) mg/dL AST (14-36) U/L ALT (9-52) U/L Alkaline Phosphatase (38-126) U/L Total Creatine Kinase (30-135) U/L CK-MB (CK-2) (0.0-2.4) ng/mL CK-MB (CK-2) Rel Index Troponin I (0.000-0.034) ng/mL NT-Pro-B Natriuret Pep 3990 pg/mL Total Protein (6.3-8.2) g/dL Albumin (3.5-5.0) g/dL Critical Care Time Critical Care Time: Yes Total Critical Care Time: 35 Disposition Clinical Impression: Acute bronchitis with COPD Disposition: ADMITTED IP TO THIS HOSP Referrals: Morales Eubanks MD [Primary Care Provider] - 1-2 days Time of Disposition: 19:07
[2017-06-05 16:45] LABS: Anisocytosis Slight; Basophils % (A) 0 %; CHCM 29.2; Eosinophils # (A) 0.1 k/uL (0-0.7); Eosinophils % (A) 1 %; HCT 35.7 % (34.0-46.0); HDW 3.75; HGB 10.5 gm/dL (11.4-16.0); Hypochromasia Marked; Luc # (Auto) 0.07; Luc % (Auto) 1; Lymphocytes # (A) 1.2 k/uL (1.0-4.8); Lymphocytes % (A) 14 %; MCH 21.3 pg (25.0-35.0); MCHC 29.4 g/dL (31.0-37.0); MCV 72.3 fL (80.0-100.0); Microcytosis Moderate; Monocytes # (A) 0.2 k/uL (0-1.0); Monocytes % (A) 2 %; Neutrophils # (A) 6.9 k/uL (1.3-7.7); Neutrophils % (A) 82 %; Poikilocytosis Slight; RBC 4.93 m/uL (3.80-5.40); RDW 17.5 % (11.5-15.5); WBC 8.4 k/uL (3.8-10.6); WBC (Perox) 8.27
[2017-06-05 16:52] LABS: INR 1.3 (<1.2); Partial Thromboplastin Time 27.3 sec (22.0-30.0); Prothrombin Time 12.8 sec (9.0-12.0)
--- NOTE | 2017-06-05 16:52 | XR ---
EXAMINATION TYPE: XR chest 2V DATE OF EXAM: 06/05/2017 COMPARISON: May 22, 2017. HISTORY: Shortness of breath TECHNIQUE: Frontal and lateral views of the chest are obtained. FINDINGS: There is a small to moderate right-sided pleural effusion which is relatively stable. Ther e is also an opacity in the lateral aspect of the right midlung which is also relatively stable. The cardiac silhouette is mildly enlarged and stable. There is mineralized focus overlying the patient's left breast which is also stable. There is no pneumothorax or left-sided pleural effusion. IMPRESSION: No significant change in appearance of the chest.
[2017-06-05 16:58] LABS: ALT 37 U/L (9-52); AST 33 U/L (14-36); Alkaline Phosphatase 73 U/L (38-126); Anion Gap 11 mmol/L; Blood Urea Nitrogen 11 mg/dL (7-17); Calcium 9.4 mg/dL (8.4-10.2); Carbon Dioxide 27 mmol/L (22-30); Chloride 97 mmol/L (98-107); Glucose 145 mg/dL (74-99); Magnesium 1.7 mg/dL (1.6-2.3); Non-African American GFR(MDRD) >60 (>60 ml/min/1.73 sqM); Potassium 4.5 mmol/L (3.5-5.1); Sodium 135 mmol/L (137-145); Total Bilirubin 1.1 mg/dL (0.2-1.3); Total Protein 6.3 g/dL (6.3-8.2)
[2017-06-05] MEDS ORDERED: SODIUM CHLORIDE 0.9% 500 ML IV ONE (16:59)
[2017-06-05] MEDS ORDERED: SODIUM CHLORIDE 0.9% 1,000 ML IV STA (16:59)
[2017-06-05 17:13] LABS: Creatine Kinase MB 3.8 ng/mL (0.0-2.4); Troponin I 0.052 ng/mL (0.000-0.034)
[2017-06-05] MEDS ORDERED: LEVOFLOXACIN 750MG-D5W PMX 750 MG in DEXTROSE/WATER 1 150ML.BAG IVPB STA (17:38)
[2017-06-05] MEDS ORDERED: HYDROmorphone 1 MG/ML 1 ML SYRINGE IVP STA ×2 (17:58→21:11)
[2017-06-05] MEDS ORDERED: IPRATROPIUM-ALBUTEROL 3 ML NEB INHALATION STA (19:07)
[2017-06-05] MEDS: LEVOFLOXACIN 750MG-D5W PMX 750 MG in DEXTROSE/WATER 1 150ML.BAG IVPB SCH (19:15)
[2017-06-05] MEDS ORDERED: ALBUTEROL NEBULIZED 2.5 MG/3 ML INHALATION PRN (21:28)
[2017-06-05] MEDS: ALPRAZolam 0.25 MG TAB PO PRN (22:42)
[2017-06-06] MEDS: methylPREDNISolone SOD SUCCI 125 MG/2 ML VIAL IV SCH ×5 (01:13→23:22)
[2017-06-06] MEDS: HYDROcodone/APAP 10-325MG 1 EACH TAB PO PRN ×2 (06:36→15:09)
[2017-06-06] MEDS: IPRATROPIUM-ALBUTEROL 3 ML NEB INHALATION PRN ×4 (08:56→21:15)
[2017-06-06] MEDS: DIGOXIN 125 MCG TAB PO SCH (12:52)
[2017-06-06] MEDS: DOCUSATE 100 MG CAP PO SCH (12:53)
[2017-06-06] MEDS: HYDROmorphone 1 MG/ML 1 ML SYRINGE IVP PRN ×3 (12:55→22:43)
--- NOTE | 2017-06-06 16:41 | P.CNPUL ---
History of Present Illness Consult date: 06/06/17 Requesting physician: Morales Eubanks Reason for consult: dyspnea Chief complaint: Shortness of breath, cough, congestion History of present illness: This is a very pleasant 57-year-old female patient who follows with Dr. Eubanks as her primary care physician. She has a history of atrophic relation, chronic obstructive pulmonary disease, chronic and ongoing tobacco dependence, chronic hypoxic respiratory failure utilizing oxygen at 5 L/m [id number] 7 diabetes mellitus, or heart disease with previous valvuloplasty, chronic renal disease, liver disease. He was recently here in April 2017 with worsening shortness of breath and moderate right pleural effusion. She had undergone a pigtail catheter placement for the same. Pathology of which was negative for malignancy. She presented here again yesterday with complaints of increasing shortness of breath cough and congestion. No chills or night sweats. No chest pain. Her chest x-ray showed no significant change compared to previous on . There is some small right-sided pleural effusion along with opacity in the right lung base. Is seen today in consultation on the selective care unit. She is awake and alert in no acute distress. She states she does still have dyspnea on minimal exertion. No productive cough. His been afebrile. Maintain O2 saturations up to 100% on 3 L/m per nasal cannula. She's been hemodynamically stable. No leukocytosis. Plasma lactic acid level was 3.5 proBNP 3990. Small troponin leak. Review of Systems 14 point review of system was conducted. All negative other than as mentioned in HPI. Past Medical History Past Medical History: Atrial Fibrillation, Asthma, Heart Failure, COPD, Diabetes Mellitus, GERD/Reflux, Liver Disease, Pneumonia, Renal Disease, Respiratory Disorder, Skin Disorder Additional Past Medical History / Comment(s): Pt recently admitted to [facility] on 08/09 with COPD/R pleural effusion with thoracentesis/pneumo with chest tube. O ther hx: Severe mitral valve stenosis and severe tricuspid valve regurgitation, pulmonary HTN, , O2 at 3L/NC ATC, current decub buttock per pt, UTI with sepsis, anemia, elevated liver enzymes in the past per past meical record, chronic renal dx per past medical record, Afib and has had RVR in past, chronic back pain/L shoulder and L elbow pain, hypocalcemia. History of Any Multi-Drug Resistant Organisms: VRE Date of last positivie culture/infection: 10/25/16 MDRO Source:: Urine Past Surgical History: Hysterectomy Additional Past Surgical History / Comment(s): 2 mitral valve balloon valvuloplasty, colonoscopy, PICC line insertion (since removed). Past Anesthesia/Blood Transfusion Reactions: No Reported Reaction Additional Past Anesthesia/Blood Transfusion Reaction / Comment(s): Pt has received blood in past without reaction. Smoking Status: Current every day smoker - Past Family History Father Family Medical History: Dementia Additional Family Medical History / Comment(s): Father is in his 80's Mother Family Medical History: Myocardial Infarction ([place]) Additional Family Medical History / Comment(s): valve disorder. Mother of a [place] in her 30's Medications and Allergies Home Medications Medication Instructions Recorded Confirmed Type ALPRAZolam [Xanax] 0.25 mg PO BID PRN 06/05/17 06/05/17 History Digoxin [Digitek] 125 mcg PO QAM 06/05/17 06/05/17 History Docusate [Colace] 200 mg PO QAM 06/05/17 06/05/17 History Ergocalciferol [Vitamin D2 50,000 unit PO WE 06/05/17 06/05/17 History (DRISDOL)] Potassium Chloride ER [K-Dur 10] 10 meq PO QAM 06/05/17 06/05/17 History Allergies Allergy/AdvReac Type Severity Reaction Status Date / Time No Known Allergies Allergy Verified 06/05/17 17:27 Physical Exam Vitals: Vital Signs Temp Pulse Pulse Resp BP BP Pulse Ox 06/06/17 16:17 84 06/06/17 16:03 84 06/06/17 14:33 97.0 F L 85 16 132/64 100 06/06/17 13:59 68 16 138/68 99 06/06/17 12:57 98.5 F 84 18 136/71 100 06/06/17 12:18 92 06/06/17 12:03 81 06/06/17 09:05 83 06/06/17 09:00 98.1 F 72 16 131/68 99 06/06/17 08:55 74 06/06/17 06:23 97.5 F L 61 18 128/67 97 06/06/17 04:17 65 16 138/67 100 06/06/17 03:21 70 18 126/68 96 06/06/17 02:13 71 18 134/77 100 06/06/17 01:13 68 18 134/60 100 06/06/17 00:30 75 18 128/59 100 06/05/17 22:43 98.1 F 103 H 18 125/66 100 06/05/17 22:02 76 20 140/85 100 06/05/17 21:16 96 18 117/68 06/05/17 20:13 104 H 18 120/90 100 06/05/17 19:56 104 H 06/05/17 19:45 112 H 06/05/17 19:12 99.3 F 90 20 124/75 99 06/05/17 19:00 91 20 152/68 100 06/05/17 18:00 97 20 142/77 100 06/05/17 17:23 93 20 152/68 100 Intake and Output 06/06/17 06/06/17 06/06/17 06:59 14:59 22:59 Other: Voiding Method Toilet GENERAL EXAM: Frail, cachectic. Alert, fairly comfortable in no apparent distress. HEAD: Normocephalic. EYES: Normal reaction of pupils, equal size. NOSE: Clear with pink turbinates. THROAT: No erythema or exudates. NECK: No masses, no JVD. CHEST: No chest wall deformity. LUNGS: Equal air entry with crackles in the right posterior base, wheeze. Diminished throughout.. CVS: S1 and S2 normal with no audible murmurs, regular rhythm. ABDOMEN: No hepatosplenomegaly, normal bowel sounds, no guarding or rigidity. SPINE: No scoliosis or deformity SKIN: No areas of ecchymosis, thin. CENTRAL NERVOUS SYSTEM: No focal deficits, tone is normal in all 4 extremities. Sturman is: There is no peripheral edema. No clubbing, no cyanosis. Peripheral pulses are intact. Results - Laboratory Findings CBC and BMP: 06/05/17 16:27 06/05/17 16:27 PT/INR, D-dimer PT 12.8 sec (9.0-12.0) H 06/05/17 16:27 INR 1.3 (<1.2) H 06/05/17 16:27 Abnormal lab findings: Abnormal Labs 06/05/17 06/05/17 06/05/17 16:27 16:27 16:27 Hgb 10.5 L MCV 72.3 L MCH 21.3 L MCHC 29.4 L RDW 17.5 H PT INR Sodium 135 L Chloride 97 L Glucose 145 H Plasma Lactic Acid Agustin CK-MB (CK-2) 3.8 H* Troponin I 0.052 H* 06/05/17 06/05/17 06/05/17 16:27 16:27 20:09 Hgb MCV MCH MCHC RDW PT 12.8 H INR 1.3 H Sodium Chloride Glucose Plasma Lactic Acid Agustin 2.9 H* 3.5 H* CK-MB (CK-2) Troponin I 06/06/17 06/06/17 09:59 14:21 Hgb MCV MCH MCHC RDW PT INR Sodium Chloride Glucose Plasma Lactic Acid Agustin 3.3 H* 5.4 H* CK-MB (CK-2) Troponin I - Diagnostic Findings Chest x-ray: image reviewed Assessment and Plan Plan: Impression: #1 Acute exacerbation of chronic obstructive pulmonary disease, complicated by purulent tracheobronchitis. Suspect resolving right lower lobe pneumonia with previous pleural effusion requiring pigtail catheter insertion and drainage improved compared to previous. #2 Chronic and Ongoing Tobacco Dependence. #3 Acute on chronic hypoxic respiratory failure secondary to above, utilizes home oxygen. #4 Atrial fibrillation, anticoagulated with warfarin, subtherapeutic. #5 History of chronic renal failure. #6 History of liver disease. #7 History of valvular heart disease status post valvuloplasty. #8 Acute on chronic anemia. #9 Anorexia/cachexia syndrome. #10 Poor overall functional performance based on the above-mentioned multiple comorbidities. Plan: The patient was seen and evaluated by Dr. Jolly. Her chest x-ray and labs are reviewed. We'll go ahead and treat her for COPD exacerbation. He remains on bronchodilators and IV Solu-Medrol. Will add Pulmicort and Perforomist inhalations twice a day. She is on empiric antibiotics in the form of Levaquin. She is educated regarding the importance of complete smoking cessation. NicoDerm patch will be offered. Dr. Hinds will follow the patient the rest of her duration starting tomorrow. Time with Patient: Greater than 30
[2017-06-06] MEDS: NICOTINE 14MG/24HR PATCH TRANSDERM SCH (18:32)
[2017-06-06] MEDS: LEVOFLOXACIN 750MG-D5W PMX 750 MG in DEXTROSE/WATER 1 150ML.BAG IVPB SCH (18:32)
--- NOTE | 2017-06-06 19:54 | HP ---
DATE OF SERVICE: 06/06/2017 Patient is in the ER hold. Room has not been assigned yet. CHIEF COMPLAINT: Severe increasing shortness of breath and general weakness. This is a 57-year-old white female who has multiple chronic medical problems. Patient has a history of chronic congestive heart failure and chronic obstructive pulmonary disease. Patient has been hospitalized several times in the past with congestive heart failure, pneumonia and pleural effusions. Patient was discharged home about a week ago after treating her for pleural effusion, pneumothorax, pneumonia and acute on chronic congestive heart failure. Since discharge, the patient was doing okay until 2 or 3 days ago; she started having increasing shortness of breath and she also had a cough with expectoration. She denied any chest pain or fever or chills. In the emergency room, chest x-ray did not show any changes from the previous x-ray, but the patient was having severe shortness of breath and she was admitted to the hospital for further evaluation and treatment. Her WBC count is within normal limits. Hemoglobin 10. Sodium 135, potassium 4.5. BUN 11, creatinine 0.60. Glucose 145. CK-MB 3.8. Troponin 0.052. Lactic acid 2.9. BNP 3990. Patient was admitted to the hospital for further evaluation and treatment with the diagnosis of COPD with acute bronchitis and acute exacerbation. Her past medical history reveals that she, as mentioned before, has very severe mitral stenosis. She has had mitral valvuloplasty 2 times in the past. Patient has chronic congestive heart failure and chronic atrial fibrillation and chronic obstructive pulmonary disease, diabetes mellitus, chronic anemia. Her current medications include: 1. Xanax 0.25 mg p.o. t.i.d. p.r.n. 2. Digoxin 125 mcg daily. 3. Colace 200 mg p.o. daily. 4. Vitamin D daily. 5. Albuterol inhaler p.r.n. 6. Lipitor 40 mg p.o. daily. 7. Ferrous sulfate 325 mg daily. 8. Lasix 40 mg b.i.d. 9. Combivent inhaler 2 puffs q.i.d. 10. Singulair 10 mg p.o. daily at bedtime. 11. Coumadin 2 mg p.o. daily. 12. Prednisone 20 mg p.o. daily. 13. Trazodone 50 mg p.o. daily at bedtime. She has had a hysterectomy in the past. ALLERGIES: NO KNOWN DRUG ALLERGIES. She smokes less than half a pack of cigarettes per day. Family history reveals a history of dementia in the family. REVIEW OF SYSTEMS: Patient denies any headache. Appetite has been poor lately. She denies any chest pain. She has severe cough and shortness of breath. She has no abdominal pain. She has no polyuria or dysuria. She has no neurological symptoms. Physical examination reveals a 57-year-old white female, moderately nourished, chronically ill-looking. She is alert and oriented. There is no jaundice. There is no generalized lymphadenopathy. There are no bruises. Temperature 98, pulse 82 per minute, blood pressure 152/68, respiration ( ) per minute, pulse ox with nasal oxygen 100%. EXAMINATION OF THE ENT: Negative. Neck is supple. ( ) are distant. Heart is in atrial fibrillation with controlled ventricular rate. Lungs reveal bilateral scattered rhonchi and a few basilar rales. ABDOMEN: Soft and non-tender. There is no mass palpable. Examination of the lower extremities reveals minor bilateral pitting edema. Neurologic examination does not reveal any localizing signs. IMPRESSION: 1. Acute bronchitis. 2. Chronic obstructive pulmonary disease with acute exacerbation. 3. Chronic congestive heart failure, combined systolic and diastolic. 4. Chronic atrial fibrillation. 5. Severe mitral stenosis, status post mitral valvuloplasty in the past. 6. Chronic anemia of chronic disease. 7. History of diabetes mellitus. PLAN: Patient will be admitted to the hospital. Will start her on IV antibiotics , updraft treatments and IV Solu-Medrol. Will get pulmonology consultation from Dr. Hinds. Will also get cardiology consultation. Prognosis guarded. The diagnoses , prognosis and therapeutic plans were discussed in detail with the patient. ISACC
[2017-06-06] MEDS: ATORVASTATIN 40 MG TAB PO SCH (20:34)
[2017-06-06] MEDS ORDERED: IV VANCOMYCIN PER PHARMACY 1 EACH MISC MISCELLANE PRN (20:51)
--- NOTE | 2017-06-06 20:51 | P.CONS ---
History of Present Illness - Reason for Consult Consult date: 06/06/17 - Chief Complaint Shortness of breath - History of Present Illness 57-year-old female who appears to be much older than her stated age, has gold stage IV COPD that is oxygen and inhaled steroid dependent presents to hospital with increasing shortness of breath cough minimal sputum production. Sudden worsening of the shortness of breath. Presented to the with profound weakness and shortness of breath. Denies fever chills or sweats. No productive cough. Review of Systems HEENT:Denies headache or acute visual change. Denies sinus or mouth discomforts. Denies neck stiffness or pain. Denies significant oral cavity pain. Denies difficulty on swallowing. Lungs: Persistent shortness of breath with cough no hemoptysis but positive serum production above her baseline Cardiovascular: Denies chest pain, chest wall pain, orthopnea, or syncope but has dyspnea on exertion Gastrointestinal:Denies nausea, vomiting, diarrhea, constipation, hematemesis, melena, hematochezia. No no significant change of bowel habit noticed. Musculoskeletal: denies significant myalgias or arthralgias. No new joint swelling. Denies new back pain. Skin: Denies new rash or lesions. No new ulcers or wounds are related.. Neuro: Denies headache or visual change. Became very weak and had some confusion which is improving. Psychiatric: Chronic anxiety Endocrine: Fatigue and has had some weight loss Past Medical History Past Medical History: Atrial Fibrillation, Asthma, Heart Failure, COPD, Diabetes Mellitus, GERD/Reflux, Liver Disease, Pneumonia, Renal Disease, Respiratory Disorder, Skin Disorder Additional Past Medical History / Comment(s): Pt recently admitted to [facility] on 08/09 with COPD/R pleural effusion with thoracentesis/pneumo with chest tube. O ther hx: Severe mitral valve stenosis and severe tricuspid valve regurgitation, pulmonary HTN, , O2 at 3L/NC ATC, current decub buttock per pt, UTI with sepsis, anemia, elevated liver enzymes in the past per past meical record, chronic renal dx per past medical record, Afib and has had RVR in past, chronic back pain/L shoulder and L elbow pain, hypocalcemia. History of Any Multi-Drug Resistant Organisms: VRE Year Discovered:: 10/25/16 MDRO Source:: Urine Past Surgical History: Hysterectomy Additional Past Surgical History / Comment(s): 2 mitral valve balloon valvuloplasty, colonoscopy, PICC line insertion (since removed). Past Anesthesia/Blood Transfusion Reactions: No Reported Reaction Additional Past Anesthesia/Blood Transfusion Reaction / Comm: Pt has received blood in past without reaction. Additional Psychological History / Comment(s): Single. Lives with adult daughter and her spouse. Has nebulizer and glucose monitor. no experience or international travel. No animal exposures. Positive tobacco use. No current alcohol or injection drug use Smoking Status: Current every day smoker - Past Family History Father Family Medical History: Dementia Additional Family Medical History / Comment(s): Father is in his 80's Mother Family Medical History: Myocardial Infarction ([place]) Additional Family Medical History / Comment(s): valve disorder. Mother of a [place] in her 30's Medications and Allergies Home Medications and Allergies Comment(s): Current Medications Hydrocodone Bitart/Acetaminophen (Bowers 10) 1 each PO Q8H PRN PRN Reason: Pain Last Admin: 06/06/17 15:09 Dose: 1 each Albuterol/Ipratropium (Duoneb 0.5 Mg-3 Mg/3 Ml Soln) 3 ml INHALATION RT-Q4H PRN PRN Reason: Shortness Of Breath Or Wheezing Last Admin: 06/06/17 16:03 Dose: 3 ml Alprazolam (Xanax) 0.25 mg PO BID PRN PRN Reason: Anxiety/Insomnia Last Admin: 06/05/17 22:42 Dose: 0.25 mg Atorvastatin Calcium (Lipitor) 40 mg PO [facility] Last Admin: 06/06/17 20:34 Dose: 40 mg Budesonide (Pulmicort) 1 mg INHALATION RT-BID [facility] Digoxin (Lanoxin) 125 mcg PO QAM [facility] Last Admin: 06/06/17 12:52 Dose: 125 mcg Docusate Sodium (Colace) 200 mg PO QAM [facility] Last Admin: 06/06/17 12:53 Dose: 200 mg Ergocalciferol (Vitamin D2) 50,000 unit PO We@0900 [facility] Formoterol Fumarate (Perforomist) 20 mcg INHALATION RT-BID [facility] Hydromorphone HCl (Dilaudid) 1 mg IVP Q4HR PRN PRN Reason: Pain Last Admin: 06/06/17 17:48 Dose: 1 mg Levofloxacin 750 mg/ IV (Solution) 150 mls @ 100 mls/hr IVPB Q24H [facility] Last Admin: 06/06/17 18:32 Dose: 100 mls/hr Methylprednisolone Sodium Succinate (Solu-Medrol) 60 mg IV Q6HR [facility] Last Admin: 06/06/17 18:32 Dose: 60 mg Nicotine (Habitrol 14mg/24hr Patch) 1 patch TRANSDERM DAILY@1600 [facility] Last Admin: 06/06/17 18:32 Dose: Not Given Home Medications Medication Instructions Recorded Confirmed Type ALPRAZolam [Xanax] 0.25 mg PO BID PRN 06/05/17 06/05/17 History Digoxin [Digitek] 125 mcg PO QAM 06/05/17 06/05/17 History Docusate [Colace] 200 mg PO QAM 06/05/17 06/05/17 History Ergocalciferol [Vitamin D2 50,000 unit PO WE 06/05/17 06/05/17 History (DRISDOL)] Potassium Chloride ER [K-Dur 10] 10 meq PO QAM 06/05/17 06/05/17 History Allergies Allergy/AdvReac Type Severity Reaction Status Date / Time No Known Allergies Allergy Verified 06/05/17 17:27 Physical Exam Vitals: Vital Signs Temp Pulse Pulse Resp BP BP Pulse Ox 06/06/17 16:17 84 06/06/17 16:03 84 06/06/17 14:33 97.0 F L 85 16 132/64 100 06/06/17 13:59 68 16 138/68 99 06/06/17 12:57 98.5 F 84 18 136/71 100 06/06/17 12:18 92 06/06/17 12:03 81 06/06/17 09:05 83 06/06/17 09:00 98.1 F 72 16 131/68 99 06/06/17 08:55 74 06/06/17 06:23 97.5 F L 61 18 128/67 97 06/06/17 04:17 65 16 138/67 100 06/06/17 03:21 70 18 126/68 96 06/06/17 02:13 71 18 134/77 100 06/06/17 01:13 68 18 134/60 100 06/06/17 00:30 75 18 128/59 100 06/05/17 22:43 98.1 F 103 H 18 125/66 100 06/05/17 22:02 76 20 140/85 100 06/05/17 21:16 96 18 117/68 Intake and Output 06/06/17 06/06/17 06/06/17 06:59 14:59 22:59 Intake Total 180 Balance 180 Intake: Oral 180 Other: Voiding Method Toilet 57-year-old woman who looks much older than her stated age. She is chronically ill. HEENT: Anicteric conjunctiva are pink and moist nasal mucosa grossly intact without significant lesions, there is no thrush. Poor dentition Neck: The neck is supple without significant lymphadenopathy or thyromegaly. Lungs: Symmetrical air entry with wheezes scattered throughout the lung iqbal. no dullness of egophony Heart: irregular no S3 loud S4 There is no significant murmur click or rub, PMI was nondisplaced. Abdomen: Positive bowel sounds soft and nontender without palpable masses or organomegaly. There was no guarding or rebound. Extremities: The extremities have just trace edema. She has no tenderness over the joints. Skin the patient has changes of diabetes her lower extremities however she has a difficulty with chronically picking at her skin and has innumerable lesions that healed over arms and legs at this time. None of them are open are grossly draining at this time is evidence of some erythema to the coccyx. With this the Aquacel silver dressing has been applied. It has the foam border. Neuro: She is awake alert oriented to person place and time and does not exhibit any acute gross focal sensory motor deficits Results CBC & Chem 7: 06/05/17 16:27 06/05/17 16:27 Labs: Abnormal Lab Results - Last 24 Hours (Table) 06/06/17 06/06/17 Range/Units 09:59 14:21 Plasma Lactic Acid Agustin 3.3 H* 5.4 H* (0.7-2.0) mmol/L Microbiology - Last 24 Hours (Table) 06/05/17 16:27 Blood Culture Gram Stain - Preliminary Blood 06/05/17 16:27 Blood Culture - Final Blood Laboratory Results WBC 8.4 k/uL (3.8-10.6) 06/05/17 16:27 RBC 4.93 m/uL (3.80-5.40) 06/05/17 16:27 Hgb 10.5 gm/dL (11.4-16.0) L 06/05/17 16: Hct 35.7 % (34.0-46.0) 06/05/17 16: MCV 72.3 fL (80.0-100.0) L 06/05/17 16:27 MCH 21.3 pg (25.0-35.0) L 06/05/17 16: MCHC 29.4 g/dL (31.0-37.0) L 06/05/17 16: RDW 17.5 % (11.5-15.5) H 06/05/17 16:27 Plt Count 312 k/uL (150-450) 06/05/17 16: Neutrophils % 82 % 06/05/17 16: Lymphocytes % 14 % 06/05/17 16:27 Monocytes % 2 % 06/05/17 16: Eosinophils % 1 % 06/05/17 16: Basophils % 0 % 06/05/17 16: Neutrophils # 6.9 k/uL (1.3-7.7) 06/05/17 16: Lymphocytes # 1.2 k/uL (1.0-4.8) 06/05/17 16: Monocytes # 0.2 k/uL (0-1.0) 06/05/17 16:27 Eosinophils # 0.1 k/uL (0-0.7) 06/05/17 16:27 Basophils # 0.0 k/uL (0-0.2) 06/05/17 16:27 Hypochromasia Marked 06/05/17 16:27 Poikilocytosis Slight 06/05/17 16:27 Anisocytosis Slight 06/05/17 16:27 Microcytosis Moderate 06/05/17 16:27 PT 12.8 sec (9.0-12.0) H 06/05/17 16: INR 1.3 (<1.2) H 06/05/17 16: APTT 27.3 sec (22.0-30.0) 06/05/17 16:27 Sodium 135 mmol/L (137-145) L 06/05/17 16: Potassium 4.5 mmol/L (3.5-5.1) 06/05/17 16:27 Chloride 97 mmol/L (98-107) L 06/05/17 16:27 Carbon Dioxide 27 mmol/L (22-30) 06/05/17 16:27 Anion Gap 11 mmol/L 06/05/17 16:27 BUN 11 mg/dL (7-17) 06/05/17 16:27 Creatinine 0.60 mg/dL (0.52-1.04) 06/05/17 16:27 Est GFR (MDRD) Af Amer >60 (>60 ml/min/1.73 sqM) 06/05/17 16:27 Est GFR (MDRD) Non-Af >60 (>60 ml/min/1.73 sqM) 06/05/17 16:27 Glucose 145 mg/dL (74-99) H 06/05/17 16:27 Lactic Ac Sepsis Rflx Y 06/06/17 10:36 Plasma Lactic Acid Agustin 5.4 mmol/L (0.7-2.0) H* 06/06/17 14:21 Calcium 9.4 mg/dL (8.4-10.2) 06/05/17 16:27 Magnesium 1.7 mg/dL (1.6-2.3) 06/05/17 16:27 Total Bilirubin 1.1 mg/dL (0.2-1.3) 06/05/17 16:27 AST 33 U/L (14-36) 06/05/17 16:27 ALT 37 U/L (9-52) 06/05/17 16:27 Alkaline Phosphatase 73 U/L (38-126) 06/05/17 16:27 Total Creatine Kinase 44 U/L (30-135) 06/05/17 16:27 CK-MB (CK-2) 3.8 ng/mL (0.0-2.4) H* 06/05/17 16:27 CK-MB (CK-2) Rel Index 8.6 06/05/17 16:27 Troponin I 0.052 ng/mL (0.000-0.034) H* 06/05/17 16:27 NT-Pro-B Natriuret Pep 3990 pg/mL 06/05/17 16:27 Total Protein 6.3 g/dL (6.3-8.2) 06/05/17 16:27 Albumin 3.8 g/dL (3.5-5.0) 06/05/17 16:27 Microbiology 06/05/17 16:27 Blood Blood Culture Gram Stain - Preliminary 06/05/17 16:27 Blood Blood Culture - Final Assessment and Plan (1) Decompensated COPD with exacerbation (chronic obstructive pulmonary disease) Status: Acute (2) Bacteremia due to Gram-positive bacteria Narrative/Plan: 57-year-old female who has advanced COPD that is oxygen and inhaled steroid dependent was recently hospitalized for several weeks with significant complications of her lung disease. She developed pneumonia as well as significant effusion. She also had a pneumothorax. After drainage and chest tube placement she finally improved. There was plans for her to go to extended care but she went to the outpatient home setting instead. She was doing relatively well. She however is a smoker and is exposed to smokers. He now has another exacerbation of her COPD. She presents to Hospital feeling very poorly. She however is rapidly improving with systemic steroids and respiratory treatments and oxygen therapy. Does not feel as poorly as she did with her last admission. Admission workup was initiated and there is no positive blood culture. Antibiotic therapy will be levofloxacin has started vancomycin will be added until we have further data. Unclear if the blood cultures a contamination or related to her recent significant illness. She's really is at risk for profound underlying illness. Improve protein intake is encouraged. Needs ongoing smoking cessation help. Status: Acute
[2017-06-06] MEDS: FORMOTEROL FUMARATE 20 MCG/2 ML NEBU INHALATION SCH (21:15)
[2017-06-06] MEDS: BUDESONIDE 1 MG/2 ML NEBU INHALATION SCH (21:16)
[2017-06-06] MEDS ORDERED: VANCOMYCIN 1,250 MG in SODIUM CHLORIDE 0.9% 250 ML IVPB ONE (21:30)
[2017-06-06] MEDS: ALPRAZolam 0.25 MG TAB PO PRN (23:20)
[2017-06-07] MEDS: traZODone HCL 50 MG TAB PO PRN ×2 (01:25→22:16)
[2017-06-07] MEDS: HYDROcodone/APAP 10-325MG 1 EACH TAB PO PRN ×3 (02:23→19:34)
[2017-06-07] MEDS: HYDROmorphone 1 MG/ML 1 ML SYRINGE IVP PRN ×5 (03:39→19:30)
[2017-06-07] MEDS: VANCOMYCIN 1,000 MG in SODIUM CHLORIDE 0.9% 250 ML IVPB SCH ×3 (05:00→19:37)
[2017-06-07 05:28] LABS: Glucose,Whole Blood 174 mg/dL (75-99)
[2017-06-07] MEDS: methylPREDNISolone SOD SUCCI 125 MG/2 ML VIAL IV SCH ×3 (06:05→17:30)
[2017-06-07] MEDS: INSULIN LISPRO (humaLOG) 300 UNIT/3 ML VIAL SQ SCH ×4 (06:06→22:12)
[2017-06-07 07:29] LABS: INR 1.4 (<1.2); Prothrombin Time 13.3 sec (9.0-12.0)
[2017-06-07] MEDS: POTASSIUM CHLORIDE ER 10 MEQ TAB.ER.PRT PO SCH (08:07)
[2017-06-07] MEDS: FUROSEMIDE 40 MG TAB PO SCH ×2 (08:07→19:37)
[2017-06-07] MEDS: DIGOXIN 125 MCG TAB PO SCH (08:07)
[2017-06-07] MEDS: DOCUSATE 100 MG CAP PO SCH (08:07)
[2017-06-07] MEDS: BUDESONIDE 1 MG/2 ML NEBU INHALATION SCH ×2 (08:18→20:20)
[2017-06-07] MEDS: FORMOTEROL FUMARATE 20 MCG/2 ML NEBU INHALATION SCH ×2 (08:19→20:22)
[2017-06-07] MEDS: IPRATROPIUM-ALBUTEROL 3 ML NEB INHALATION PRN ×4 (08:19→20:20)
--- NOTE | 2017-06-07 10:04 | CDI ---
In responding to this query, please exercise your independent professional judgment. The [facility] Coding Staff and Clinical Documentation Specialists appreciate your assistance in clarifying documentation, maintaining compliance with coding guidelines, accurately documenting patients condition and capturing severity of illness. The fact that a question is asked does not imply that any particular answer is desired or expected. Communication forms are a method of clarifying documentation and are not made part of the Legal Health Record. Thank you in advance for your clarification. Last Revision, August 2015 Yolanda Diallo [address] [place] [address] Documentation Clarification Form Date: 06/07/2017 9:54:00 AM From: Lynette Evans RN, CCDS Admit Date: 06/05/2017 7:07:00 PM Patient Name: Mariah Loya Visit Number: [id number] Dr. Morales Eubanks Anorexia/Cachexia syndrome is documented in the Pulmonary Consult . History/Risk Factors: COPD, DM, GERD, Liver Disease, Acute on Chronic respiratory failure, chronic renal disease Clinical Indicators: 06/06 Pulmonary Consult: General exam: "Frail, cachectic." Labs: Albumin: 3.8 Total Protein: 6.3 Current BMI:16 Insufficient energy intake: Severe COPD with home O2 and severe SOB Treatment: Dietary Consult: Not ordered Supplements/TPN: none ordered- regular Diet Lab monitoring: on admission In your professional opinion, can you please clarify if these findings signify one of the following conditions? Mild Protein-Calorie Malnutrition Moderate Protein-Calorie Malnutrition Severe Protein-Calorie Malnutrition Other condition, please specify Unable to determine Please document in your progress notes and discharge summary in order to capture severity of illness and risk of mortality. Include clinical findings that support your diagnosis. FYI: Press F11 to launch patient chart. Place X here if this finding has no clinical significance, is not applicable or if you are not able to provide any additional documentation. ISACC
--- NOTE | 2017-06-07 11:16 | P.CRDCN ---
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 Patient was just recently in the hospital with bilateral pleural effusions and discharged home on May 25. EKG on arrival here showed atrial fibrillation with a controlled ventricular response and nonspecific ST-T wave changes. Chest x-ray reveals small to moderate right sided pleural effusion. Blood pressure on arrival 128/75 with a heart rate in the 80s, temperature 90.7. White blood cell count 8.4, hemoglobin 10.5, platelet count 312, sodium 135, potassium 4.5, BUN 11, creatinine 0.6. BNP level 3990, troponin 0.052. Patient was initiated on IV antibiotics in the emergency room. Cardiology consultation was requested on this admission because of abnormal troponins. Abnormal troponins not consistent with acute coronary syndrome, they have been also been abnormal in the past, likely secondary to oxygen supply and demand mismatch. Past Medical History Past Medical History: Atrial Fibrillation, Asthma, Heart Failure, COPD, Diabetes Mellitus, GERD/Reflux, Liver Disease, Pneumonia, Renal Disease, Respiratory Disorder, Skin Disorder Additional Past Medical History / Comment(s): Pt recently admitted to [facility] on 08/09 with COPD/R pleural effusion with thoracentesis/pneumo with chest tube. O ther hx: Severe mitral valve stenosis and severe tricuspid valve regurgitation, pulmonary HTN, , O2 at 3L/NC ATC, current decub buttock per pt, UTI with sepsis, anemia, elevated liver enzymes in the past per past meical record, chronic renal dx per past medical record, Afib and has had RVR in past, chronic back pain/L shoulder and L elbow pain, hypocalcemia. History of Any Multi-Drug Resistant Organisms: VRE Date of last positivie culture/infection: 10/25/16 MDRO Source:: Urine Past Surgical History: Hysterectomy Additional Past Surgical History / Comment(s): 2 mitral valve balloon valvuloplasty, colonoscopy, PICC line insertion (since removed). Past Anesthesia/Blood Transfusion Reactions: No Reported Reaction Additional Past Anesthesia/Blood Transfusion Reaction / Comment(s): Pt has received blood in past without reaction. Additional Psychological History / Comment(s): Single. Lives with adult daughter and her spouse. Has nebulizer and glucose monitor. no experience or international travel. No animal exposures. Positive tobacco use. No current alcohol or injection drug use Smoking Status: Current every day smoker - Past Family History Father Family Medical History: Dementia Additional Family Medical History / Comment(s): Father is in his 80's Mother Family Medical History: Myocardial Infarction (GA) Additional Family Medical History / Comment(s): valve disorder. Mother of a GA in her 30's Medications and Allergies Home Medications Medication Instructions Recorded Confirmed Type ALPRAZolam [Xanax] 0.25 mg PO BID PRN 06/05/17 06/05/17 History Digoxin [Digitek] 125 mcg PO QAM 06/05/17 06/05/17 History Docusate [Colace] 200 mg PO QAM 06/05/17 06/05/17 History Ergocalciferol [Vitamin D2 50,000 unit PO WE 06/05/17 06/05/17 History (DRISDOL)] Potassium Chloride ER [K-Dur 10] 10 meq PO QAM 06/05/17 06/05/17 History Allergies Allergy/AdvReac Type Severity Reaction Status Date / Time No Known Allergies Allergy Verified 06/05/17 17:27 Physical Exam Vitals: Vital Signs Temp Pulse Pulse Resp BP BP Pulse Ox 06/07/17 08:45 84 06/07/17 08:33 88 06/07/17 08:32 88 06/07/17 08:22 88 98 06/07/17 08:00 97.0 F L 80 16 129/75 100 06/07/17 04:00 97.8 F 100 17 128/75 100 06/07/17 00:00 97.9 F 97 16 135/71 99 06/06/17 21:43 98 06/06/17 21:29 84 06/06/17 21:28 84 06/06/17 21:16 82 06/06/17 20:00 97.8 F 98 17 125/70 100 06/06/17 16:17 84 06/06/17 16:03 84 06/06/17 14:33 97.0 F L 85 16 132/64 100 06/06/17 13:59 68 16 138/68 99 06/06/17 12:57 98.5 F 84 18 136/71 100 06/06/17 12:18 92 06/06/17 12:03 81 Intake and Output 06/06/17 06/07/17 06/07/17 22:59 06:59 14:59 Intake Total 910 340 Output Total 450 250 Balance 460 -250 340 Intake: Intake, IV Titration 250 250 Amount Vancomycin 1,000 mg In 250 Sodium Chloride 0.9% 250 ml @ 125 mls/hr IVPB Q8H [facility] Rx#:[id number] Vancomycin 1,250 mg In 250 Sodium Chloride 0.9% 250 ml @ 125 mls/hr IVPB ONCE ONE Rx#:[id number] Oral 660 90 Output: Urine 450 250 Other: Voiding Method Toilet Toilet Toilet # Voids 2 2 Weight 46.4 kg PHYSICAL EXAMINATION: HEENT: [Head is atraumatic, normocephalic. Pupils equal, round. Neck is supple. There is no elevated jugular venous pressure.] HEART EXAMINATION: Heart S1 and S2 irregularly irregular a systolic murmur is heard at the apex, diastolic murmur also heard. CHEST EXAMINATION: Lungs reveal decreased air exchange throughout with scattered expiratory wheezes, diminished air entry to bilateral bases. ABDOMEN: [ Soft, nontender. Bowel sounds are heard. No organomegaly noted]. EXTREMITIES:[ 2+ peripheral pulses with no evidence of peripheral edema and no calf tenderness noted]. NEUROLOGIC [patient is awake, alert and oriented -3.] . Results 06/05/17 16:27 06/05/17 16:27 Coagulation 06/07/17 Range/Units 06:43 PT 13.3 H (9.0-12.0) sec Current Medications Generic Name Dose Route Start Last Admin Trade Name Freq PRN Reason Stop Dose Admin Hydrocodone Bitart/Acetaminophen 1 each 06/06/17 06:26 06/07/17 10:50 [place] 10 PO 1 each Q8H PRN Administration Pain Albuterol/Ipratropium 3 ml 06/05/17 19:07 06/07/17 08:19 Duoneb 0.5 Mg-3 Mg/3 Ml Soln INHALATION 3 ml RT-Q4H PRN Administration Shortness Of Breath Or Wheezing Alprazolam 0.25 mg 06/05/17 21:28 06/06/17 23:20 Xanax PO 0.25 mg BID PRN Administration Anxiety/Insomnia Atorvastatin Calcium 40 mg 06/06/17 21:00 06/06/17 20:34 Lipitor PO 40 mg HS MARY CARMEN Administration Budesonide 1 mg 06/06/17 20:00 06/07/17 08:18 Pulmicort INHALATION 1 mg RT-BID MARY CARMEN Administration Digoxin 125 mcg 06/06/17 09:00 06/07/17 08:07 Lanoxin PO 125 mcg QAM MARY CARMEN Administration Docusate Sodium 200 mg 06/06/17 09:00 06/07/17 08:07 Colace PO 200 mg QAM MARY CARMEN Administration Ergocalciferol 50,000 unit 06/08/17 09:00 Vitamin D2 PO We@0900 MARY CARMEN Ferrous Sulfate 325 mg 06/07/17 12:30 Feosol PO W/LUNCH MARY CARMEN Formoterol Fumarate 20 mcg 06/06/17 20:00 06/07/17 08:19 Perforomist INHALATION 20 mcg RT-BID MARY CARMEN Administration Furosemide 40 mg 06/07/17 09:00 06/07/17 08:07 Lasix PO 40 mg BID MARY CARMEN Administration Hydromorphone HCl 1 mg 06/06/17 12:35 06/07/17 08:05 Dilaudid IVP 1 mg Q4HR PRN Administration Pain Levofloxacin 750 mg/ IV 150 mls @ 100 mls/hr 06/05/17 17:45 06/06/17 18:32 Solution IVPB 100 mls/hr Q24H MARY CARMEN Administration Vancomycin HCl 1,000 mg/ 250 mls @ 125 mls/hr 06/07/17 05:00 06/07/17 05:00 Sodium Chloride IVPB 125 mls/hr Q8H MARY CARMEN Administration Insulin Human Lispro 0 unit 06/07/17 07:30 06/07/17 06:06 Humalog SQ 2 unit ACHS MARY CARMEN Administration Protocol Methylprednisolone Sodium Succinate 60 mg 06/06/17 00:00 06/07/17 06:05 Solu-Medrol IV 60 mg Q6HR MARY CARMEN Administration Miscellaneous Information 0 each 06/08/17 04:00 Vancomycin Trough Due MISCELLANE 06/08/17 04:01 DIRECTED ONE Nicotine 1 patch 06/06/17 16:45 06/06/17 18:32 Habitrol 14mg/24hr Patch TRANSDERM Not Given DAILY@1600 MARY CARMEN Potassium Chloride 10 meq 06/07/17 09:00 06/07/17 08:07 K-Dur 10 PO 10 meq QAM MARY CARMEN Administration Trazodone HCl 50 mg 06/07/17 00:50 06/07/17 01:25 Desyrel PO 50 mg HS PRN Administration Insomnia Warfarin Sodium 2 mg 06/07/17 18:00 Coumadin PO DAILY@1800 MARY CARMEN Intake and Output 06/06/17 06/07/17 06/07/17 22:59 06:59 14:59 Intake Total 910 340 Output Total 450 250 Balance 460 -250 340 Intake: Intake, IV Titration 250 250 Amount Vancomycin 1,000 mg In 250 Sodium Chloride 0.9% 250 ml @ 125 mls/hr IVPB Q8H [facility] Rx#:[id number] Vancomycin 1,250 mg In 250 Sodium Chloride 0.9% 250 ml @ 125 mls/hr IVPB ONCE ONE Rx#:[id number] Oral 660 90 Output: Urine 450 250 Other: Voiding Method Toilet Toilet Toilet # Voids 2 2 Weight 46.4 kg 06/05/17 16:27 06/05/17 16:27 EKG Interpretations (text) EKG on admission showed atrial fibrillation with a controlled ventricular response and nonspecific ST-T wave changes Assessment and Plan Plan: Assessment and plan #1 acute exacerbation of COPD complicated by possible tracheobronchitis and right-sided pleural effusion. #2 nicotine dependence #3 chronic persistent atrial fibrillation #4 chronic renal failure #5 history of liver disease #6 rheumatic mitral valve disease, mitral stenosis status post mitral valvoplasty #7 acute on chronic anemia #8 anorexia/cachexia syndrome #9 CHRONIC pleural effusion status post recent pigtail catheter insertion and drainage #10 abnormal troponins, not consistent with acute coronary syndrome, likely secondary to oxygen supply and demand mismatch. Plan We will repeat an echocardiogram with Doppler study. Patient does not appear to be in any overt congestive heart failure at this time, we will continue oral diuretics. Continue Coumadin to maintain an INR in the range of 2-2.5. DNP note has been reviewed, I agree with a documented findings and plan of care. Patient was seen and examined.
[2017-06-07] MEDS: FERROUS SULFATE 325 MG TAB PO SCH (12:17)
[2017-06-07 12:30] LABS: Glucose,Whole Blood 281 mg/dL (75-99)
--- NOTE | 2017-06-07 12:47 | P.PN ---
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 Patient was just recently in the hospital with bilateral pleural effusions and discharged home on May 25. EKG on arrival here showed atrial fibrillation with a controlled ventricular response and nonspecific ST-T wave changes. Chest x-ray reveals small to moderate right sided pleural effusion. Blood pressure on arrival 128/75 with a heart rate in the 80s, temperature 90.7. White blood cell count 8.4, hemoglobin 10.5, platelet count 312, sodium 135, potassium 4.5, BUN 11, creatinine 0.6. BNP level 3990, troponin 0.052. Patient was initiated on IV antibiotics in the emergency room mouth also initiated on breathing treatments, she is feeling slightly better with less short of breath denies any cough or sputum production Objective - Vital Signs Vital signs: Vital Signs Temp 97.0 F L 06/07/17 08:00 Pulse 84 06/07/17 11:54 Resp 20 06/07/17 11:24 BP 117/82 06/07/17 11:23 Pulse Ox 97 06/07/17 11:23 Intake & Output 06/06/17 06/07/17 06/07/17 18:59 06:59 18:59 Intake Total 180 730 340 Output Total 700 300 Balance 180 30 40 Weight 46.4 kg Intake: Intake, IV Titration 250 250 Amount Vancomycin 1,000 mg In 250 Sodium Chloride 0.9% 250 ml @ 125 mls/hr IVPB Q8H [facility] Rx#:[id number] Vancomycin 1,250 mg In 250 Sodium Chloride 0.9% 250 ml @ 125 mls/hr IVPB ONCE ONE Rx#:[id number] Oral 180 480 90 Output: Urine 700 300 Other: Voiding Method Toilet Toilet Toilet # Voids 2 1 HEENT: [Head is atraumatic, normocephalic. Pupils equal, round. Neck is supple. Neck veins are prominent but There is no elevated jugular venous pressure.] HEART EXAMINATION: Heart S1 and S2 irregularly irregular a systolic murmur is heard at the apex, diastolic murmur also heard. CHEST EXAMINATION: Lungs reveal decreased air exchange throughout with scattered expiratory wheezes, diminished air entry to bilateral bases. ABDOMEN: [ Soft, nontender. Bowel sounds are heard. No organomegaly noted]. EXTREMITIES:[ 2+ peripheral pulses with no evidence of peripheral edema and no calf tenderness noted]. NEUROLOGIC [patient is awake, alert and oriented -3.] - Labs CBC & Chem 7: 06/05/17 16:27 06/05/17 16:27 Labs: Abnormal Lab Results - Last 24 Hours (Table) 06/06/17 06/07/17 06/07/17 Range/Units 14:21 05:27 06:43 PT 13.3 H (9.0-12.0) sec INR 1.4 H (<1.2) POC Glucose (mg/dL) 174 H (75-99) mg/dL Plasma Lactic Acid Agustin 5.4 H* (0.7-2.0) mmol/L 06/07/17 Range/Units 12:18 PT (9.0-12.0) sec INR (<1.2) POC Glucose (mg/dL) 281 H (75-99) mg/dL Plasma Lactic Acid Agustin (0.7-2.0) mmol/L Microbiology - Last 24 Hours (Table) 06/05/17 16:27 Blood Culture Gram Stain - Preliminary Blood Blood Culture - Preliminary Coagulase Negative Staph 06/05/17 16:27 Blood Culture - Final Blood Assessment and Plan Plan: #1 acute exacerbation of COPD complicated by possible tracheobronchitis and right-sided pleural effusion. #2 nicotine dependence #3 chronic persistent atrial fibrillation #4 chronic renal failure #5 history of liver disease #6 rheumatic mitral valve disease, mitral stenosis status post mitral valvoplasty #7 acute on chronic anemia #8 anorexia/cachexia syndrome #9 CHRONIC pleural effusion status post recent pigtail catheter insertion and drainage #10 abnormal troponins, not consistent with acute coronary syndrome, likely secondary to oxygen supply and demand mismatch. Plan is to continue breathing treatments and steroids and antibiotic antibiotics no plans for thoracentesis will continue gentle diuresis moderate clinical port course closely Time with Patient: Greater than 30
[2017-06-07] MEDS: NICOTINE 14MG/24HR PATCH TRANSDERM SCH (15:17)
--- NOTE | 2017-06-07 16:14 | PN ---
DATE OF SERVICE: 06/07/17 This is a 57 -year-old white female with multiple chronic illness and she has chronic obstructive pulmonary disease and has had recurrent hospitalizations for pneumonia, pleural effusion and acute exacerbation of COPD. Also she has chronic atrial fibrillation and chronic congestive heart failure. She has very advanced mitral stenosis and has had two mitral valvuloplasties in the past. She has been anemic and possibly due to chronic illness. The patient was brought to the emergency room this time with progressive shortness of breath and she was admitted to the hospital with a diagnosis of COPD with acute exacerbation, acute ( ) and congestive heart failure and chronic atrial fibrillation. The patient is currently receiving IV antibiotics and treatment. She was seen by Dr. Hinds in consultation and he is following the patient. The patient was also seen by [facility] and her blood cultures showed bacteremia involving gram positive cocci. Today the patient seemed to show some clinical improvement but still getting IV antibiotics and updraft treatments. We will continue current medications. Diagnosis, prognosis and therapeutic plans were discussed in detail with the patient today. Overall prognosis is guarded. MTDD
[2017-06-07 17:15] LABS: Glucose,Whole Blood 195 mg/dL (75-99)
[2017-06-07] MEDS: LEVOFLOXACIN 750 MG TAB PO SCH (17:30)
[2017-06-07] MEDS: WARFARIN 2 MG TAB PO SCH (17:30)
[2017-06-07] MEDS: ATORVASTATIN 40 MG TAB PO SCH (19:37)
[2017-06-07] MEDS ORDERED: traZODone HCL 50 MG TAB PO SCH (21:00)
[2017-06-07 21:17] LABS: Glucose,Whole Blood 157 mg/dL (75-99)
[2017-06-07] MEDS: ALPRAZolam 0.25 MG TAB PO PRN (22:15)
[2017-06-08] MEDS: HYDROmorphone 1 MG/ML 1 ML SYRINGE IVP PRN ×6 (00:02→20:15)
[2017-06-08] MEDS: methylPREDNISolone SOD SUCCI 125 MG/2 ML VIAL IV SCH ×5 (00:03→23:26)
[2017-06-08 03:54] LABS: Anion Gap 9 mmol/L; Blood Urea Nitrogen 21 mg/dL (7-17); Calcium 9.3 mg/dL (8.4-10.2); Carbon Dioxide 30 mmol/L (22-30); Chloride 95 mmol/L (98-107); Glucose 170 mg/dL (74-99); Non-African American GFR(MDRD) >60 (>60 ml/min/1.73 sqM); Potassium 4.4 mmol/L (3.5-5.1); Sodium 134 mmol/L (137-145)
[2017-06-08] MEDS ORDERED: VANCOMYCIN TROUGH DUE 1 EACH MISC MISCELLANE ONE (04:00)
[2017-06-08] MEDS: HYDROcodone/APAP 10-325MG 1 EACH TAB PO PRN ×3 (04:18→20:37)
[2017-06-08] MEDS: VANCOMYCIN 1,000 MG in SODIUM CHLORIDE 0.9% 250 ML IVPB SCH ×3 (04:46→20:37)
[2017-06-08 05:54] LABS: Glucose,Whole Blood 210 mg/dL (75-99)
[2017-06-08] MEDS: INSULIN LISPRO (humaLOG) 300 UNIT/3 ML VIAL SQ SCH ×4 (06:09→22:16)
[2017-06-08] MEDS: IPRATROPIUM-ALBUTEROL 3 ML NEB INHALATION PRN ×4 (07:53→19:47)
[2017-06-08] MEDS: FORMOTEROL FUMARATE 20 MCG/2 ML NEBU INHALATION SCH ×2 (07:53→19:47)
[2017-06-08] MEDS: BUDESONIDE 1 MG/2 ML NEBU INHALATION SCH ×2 (07:53→19:47)
[2017-06-08] MEDS: FUROSEMIDE 40 MG TAB PO SCH ×2 (08:40→20:37)
[2017-06-08] MEDS: DOCUSATE 100 MG CAP PO SCH (08:40)
[2017-06-08] MEDS: POTASSIUM CHLORIDE ER 10 MEQ TAB.ER.PRT PO SCH (08:40)
[2017-06-08] MEDS: FERROUS SULFATE 325 MG TAB PO SCH (08:41)
[2017-06-08] MEDS: ERGOCALCIFEROL 50,000 UNIT CAP PO SCH (08:41)
[2017-06-08] MEDS: DIGOXIN 125 MCG TAB PO SCH (08:42)
[2017-06-08] MEDS ORDERED: FUROSEMIDE 10 MG/ML 4 ML VIAL IV STA (11:36)
--- NOTE | 2017-06-08 11:39 | P.PN ---
Subjective Interval history. Patient is being seen evaluated and examined today on the selective care unit. Currently the patient's resting up in bed on 4 L of supplemental oxygen. She continues to complain of shortness of breath on and off with exertion. Patient does have a cough that is congested with yellow- green sputum. Patient recently had a thoracentesis on her last hospitalization with bilateral pleural effusions as well as a chest tube. She was discharged and was doing better however she came back to the emergency room on 06/05/2017 for progressive increase in shortness of breath. She has been stable on IV antibiotics and scheduled breathing treatments. Patient states her breathing is slightly better today than admission. She has been afebrile. No overnight events. Labs and reports of been reviewed Objective - Vital Signs Vital signs: Vital Signs Temp 97.1 F L 06/08/17 08:00 Pulse 84 06/08/17 08:14 Resp 18 06/08/17 08:00 BP 125/71 06/08/17 08:00 Pulse Ox 100 06/08/17 08:00 Intake & Output 06/07/17 06/08/17 06/08/17 18:59 06:59 18:59 Intake Total 562 1220 240 Output Total 300 Balance 262 1220 240 Weight 46.4 kg 47.3 kg Intake: Intake, IV Titration 250 500 Amount Vancomycin 1,000 mg In 250 500 Sodium Chloride 0.9% 250 ml @ 125 mls/hr IVPB Q8H [facility] Rx#:[id number] Oral 312 720 240 Output: Urine 300 Other: Voiding Method Toilet Toilet Toilet # Voids 1 2 - Exam GENERAL EXAM: Alert, comfortable in no apparent distress. HEAD: Normocephalic. EYES: Normal reaction of pupils, equal size. NOSE: Clear with pink turbinates. THROAT: No erythema or exudates. NECK: No masses, no JVD. CHEST: No chest wall deformity. LUNGS: Poor air entry bilaterally, scattered expiratory wheezing noted. Bases diminished. CVS: S1 and S2 normal with no audible mumurs, regular rhythm. ABDOMEN: No hepatosplenomegaly, normal bowel sounds, no guarding or rigidity. EXTREMITIES: No edema noted, pedal pulses palpable. SKIN: No rashes CENTRAL NERVOUS SYSTEM: No focal deficits, tone is normal in all 4 extremities. - Labs CBC & Chem 7: 06/05/17 16:27 06/08/17 03:35 Labs: Abnormal Lab Results - Last 24 Hours (Table) 06/07/17 06/07/17 06/07/17 Range/Units 12:18 16:57 21:15 Sodium (137-145) mmol/L Chloride (98-107) mmol/L BUN (7-17) mg/dL Glucose (74-99) mg/dL POC Glucose (mg/dL) 281 H 195 H 157 H (75-99) mg/dL Vancomycin Trough ug/mL 06/08/17 06/08/17 06/08/17 Range/Units 03:35 03:35 05:53 Sodium 134 L (137-145) mmol/L Chloride 95 L (98-107) mmol/L BUN 21 H (7-17) mg/dL Glucose 170 H (74-99) mg/dL POC Glucose (mg/dL) 210 H (75-99) mg/dL Vancomycin Trough 33.2 H* ug/mL Microbiology - Last 24 Hours (Table) 06/07/17 06:43 Blood Culture - Preliminary Blood No Growth after 24 hours 06/05/17 16:27 Blood Culture Gram Stain - Final Blood Blood Culture - Final Coagulase Negative Staph Assessment and Plan Plan: Assessment 1 acute exacerbation of COPD complicated by possible tracheobronchitis and right -sided pleural effusion. #2 nicotine addiction #3 chronic persistent atrial fibrillation #4 chronic renal failure #5 history of liver disease #6 rheumatic mitral valve disease, mitral stenosis status post mitral valvoplasty #7 acute on chronic anemia #8 anorexia/cachexia syndrome #9 CHRONIC pleural effusion status post recent pigtail catheter insertion and drainage #10 abnormal troponins, not consistent with acute coronary syndrome, likely secondary to oxygen supply and demand mismatch. Plan Medications have been reviewed and will be continued as ordered. No plans for thoracentesis at this time. Continue with pulmonary hygiene, coughing and deep breathing exercises, and supportive care. Supplemental oxygen to maintain oxygen saturations of 92% or better. Continue nebulizer treatments. GI and DVT prophylaxis. We will continue to monitor labs/results and adjust treatment as necessary. Further recommendations pending. I performed an examination of the patient and discussed their management with the nurse practitioner. I have reviewed the nurse practitioner's note and agree with the documented findings and plan of care.
--- NOTE | 2017-06-08 11:45 | P.PN ---
Subjective Principal diagnosis: Shortness of breath and productive cough. 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 Patient was just recently in the hospital with bilateral pleural effusions and discharged home on May 25. EKG on arrival here showed atrial fibrillation with a controlled ventricular response and nonspecific ST-T wave changes. Chest x-ray reveals small to moderate right sided pleural effusion. Blood pressure on arrival 128/75 with a heart rate in the 80s, temperature 90.7. White blood cell count 8.4, hemoglobin 10.5, platelet count 312, sodium 135, potassium 4.5, BUN 11, creatinine 0.6. BNP level 3990, troponin 0.052. Patient was initiated on IV antibiotics in the emergency room. Cardiology consultation was requested on this admission because of abnormal troponins. Abnormal troponins not consistent with acute coronary syndrome, they have been also been abnormal in the past, likely secondary to oxygen supply and demand mismatch. Patient was seen and examined this morning, she states overall she is feeling much better today. Continues to have cough but much less productive. She does state that earlier this morning she felt more congested than she did yesterday. On exam, patient does have some fine rales noted to the bases along with her wheezing. We will give her a one-time dose of IV Lasix today. Blood pressure 124/70 with a heart rate in the 80s. Sodium 134, potassium 4.4, BUN 21, creatinine 0.7. Objective - Vital Signs Vital signs: Vital Signs Temp 97.1 F L 06/08/17 08:00 Pulse 84 06/08/17 08:14 Resp 18 06/08/17 08:00 BP 125/71 06/08/17 08:00 Pulse Ox 100 06/08/17 08:00 Intake & Output 06/07/17 06/08/17 06/08/17 18:59 06:59 18:59 Intake Total 562 1220 240 Output Total 300 Balance 262 1220 240 Weight 46.4 kg 47.3 kg Intake: Intake, IV Titration 250 500 Amount Vancomycin 1,000 mg In 250 500 Sodium Chloride 0.9% 250 ml @ 125 mls/hr IVPB Q8H [facility] Rx#:[id number] Oral 312 720 240 Output: Urine 300 Other: Voiding Method Toilet Toilet Toilet # Voids 1 2 - Exam PHYSICAL EXAMINATION: HEENT: Head is atraumatic, normocephalic. Pupils equal, round. Neck is supple. There is no elevated jugular venous pressure. HEART EXAMINATION: Heart S1 and S2 irregularly irregular a systolic murmur is heard CHEST EXAMINATION: Lungs reveal decreased air exchange throughout with scattered wheezing, fine rales heard at bilateral bases. ABDOMEN: Soft, nontender. Bowel sounds are heard. No organomegaly noted. EXTREMITIES: 2+ peripheral pulses with no evidence of peripheral edema and no calf tenderness noted. NEUROLOGIC patient is awake, alert and oriented -3. . - Labs CBC & Chem 7: 06/05/17 16:27 06/08/17 03:35 Labs: Abnormal Lab Results - Last 24 Hours (Table) 06/07/17 06/07/17 06/07/17 Range/Units 12:18 16:57 21:15 Sodium (137-145) mmol/L Chloride (98-107) mmol/L BUN (7-17) mg/dL Glucose (74-99) mg/dL POC Glucose (mg/dL) 281 H 195 H 157 H (75-99) mg/dL Vancomycin Trough ug/mL 06/08/17 06/08/17 06/08/17 Range/Units 03:35 03:35 05:53 Sodium 134 L (137-145) mmol/L Chloride 95 L (98-107) mmol/L BUN 21 H (7-17) mg/dL Glucose 170 H (74-99) mg/dL POC Glucose (mg/dL) 210 H (75-99) mg/dL Vancomycin Trough 33.2 H* ug/mL Microbiology - Last 24 Hours (Table) 06/07/17 06:43 Blood Culture - Preliminary Blood No Growth after 24 hours 06/05/17 16:27 Blood Culture Gram Stain - Final Blood Blood Culture - Final Coagulase Negative Staph Assessment and Plan Plan: Assessment and plan #1 acute exacerbation of COPD complicated by possible tracheobronchitis and right-sided pleural effusion. #2 nicotine dependence #3 chronic persistent atrial fibrillation #4 chronic renal failure #5 history of liver disease #6 rheumatic mitral valve disease, mitral stenosis status post mitral valvoplasty #7 acute on chronic anemia #8 anorexia/cachexia syndrome #9 CHRONIC pleural effusion status post recent pigtail catheter insertion and drainage #10 abnormal troponins, not consistent with acute coronary syndrome, likely secondary to oxygen supply and demand mismatch. Plan A repeat echocardiogram with Doppler study was performed, results are yet pending. We will give the patient one time dose of IV Lasix, monitor intake and output along with daily weights. Continue current medications. DNP note has been reviewed, I agree with a documented findings and plan of care. Patient was seen and examined.
[2017-06-08 11:46] LABS: Glucose,Whole Blood 273 mg/dL (75-99)
[2017-06-08] MEDS: NICOTINE 14MG/24HR PATCH TRANSDERM SCH (11:58)
[2017-06-08 16:44] LABS: Glucose,Whole Blood 209 mg/dL (75-99)
[2017-06-08] MEDS: WARFARIN 2 MG TAB PO SCH (17:17)
[2017-06-08] MEDS: LEVOFLOXACIN 750 MG TAB PO SCH (17:17)
[2017-06-08] MEDS ORDERED: FUROSEMIDE 10 MG/ML 2 ML VIAL IV STA (19:59)
[2017-06-08] MEDS: ATORVASTATIN 40 MG TAB PO SCH (20:37)
[2017-06-08] MEDS: guaiFENesin 600 MG TABLET.ER PO SCH (20:37)
--- NOTE | 2017-06-08 20:46 | ECHOF ---
Referral Reason:sob MEASUREMENTS -------- HEIGHT: 170.2 cm WEIGHT: 46.3 kg BP: 129/75 IVSd: 1.3 cm (0.6 - 1.1) LVIDd: 3.5 cm (3.9 - 5.3) LVPWd: 0.9 cm (0.6 - 1.1) IVSs: 1.4 cm LVIDs: 3.1 cm LVPWs: 1.0 cm LA Diam: 3.7 cm (2.7 - 3.8) LAESV Index (A-L): 73.46 ml/m Ao Diam: 2.1 cm (2.0 - 3.7) AV Cusp: 1.2 cm (1.5 - 2.6) LA Diam: 3.6 cm (2.7 - 3.8) MV EXCURSION: 16.356 mm (> 18.000) MV EF SLOPE: 21 mm/s (70 - 150) EPSS: 0.3 cm MV E Juan José: 0.64 m/s MV DecT: 218 ms MV A Juan José: 0.44 m/s MV E/A Ratio: 1.47 RAP: 5.00 mmHg RVSP: 70.36 mmHg FINDINGS -------- Undetermined rhythm. This was a technically adequate study. There is mild concentric left ventricular hypertrophy. Overall left ventricular systolic function is low-normal with, an EF between 50 - 55 %. The right ventricle is normal in size. The right ventricular septal wall is flattened in diastole and systole which is consistent with right ventricular volume and pressure overload. LA is severely dilated >40 ml/m2 The right atrial size is normal. There is mild aortic valve sclerosis. There is mild aortic regurgitation. Rheumatic appearing mitral valve with thickening and tethering of the leaflet tips. The mitral valve leaflets are moderately thickened. The peak and mean MV gradients are 38.69mmHg 16.08mmHg as measured by doppler. [id number] mitral stenosis. Severe tricuspid regurgitation present. There is moderate pulmonary hypertension. The right ventricular systolic pressure, as measured by Doppler, is 70.36mmHg. Trace/mild (physiologic) pulmonic regurgitation. The aortic root size is normal. There is no pericardial effusion. CONCLUSIONS -------- 1. There is mild concentric left ventricular hypertrophy. 2. Trace/mild (physiologic) pulmonic regurgitation. 3. There is no pericardial effusion. 4. Overall left ventricular systolic function is low-normal with, an EF between 50 - 55 %. 5. LA is severely dilated >40 ml/m2 6. There is mild aortic valve sclerosis. 7. The peak and mean MV gradients are 38.69mmHg 16.08mmHg as measured by doppler. 8. Jjvguede-[id number] mitral stenosis. 9. Severe tricuspid regurgitation present. 10. There is moderate pulmonary hypertension. 11. The right ventricular systolic pressure, as measured by Doppler, is 70.36mmHg. AUDIO DIRECTOR: Usha Trevino RDCS
[2017-06-08 20:49] LABS: Glucose,Whole Blood 150 mg/dL (75-99)
[2017-06-09] MEDS: ALPRAZolam 0.25 MG TAB PO PRN (00:16)
[2017-06-09] MEDS: HYDROmorphone 1 MG/ML 1 ML SYRINGE IVP PRN ×6 (00:16→20:40)
[2017-06-09] MEDS ORDERED: VANCOMYCIN TROUGH DUE 1 EACH MISC MISCELLANE ONE (04:00)
[2017-06-09] MEDS: HYDROcodone/APAP 10-325MG 1 EACH TAB PO PRN ×3 (04:30→20:40)
[2017-06-09 04:38] LABS: INR 1.9 (<1.2); Prothrombin Time 17.9 sec (9.0-12.0)
[2017-06-09 04:39] LABS: Anion Gap 9 mmol/L; Blood Urea Nitrogen 27 mg/dL (7-17); Calcium 9.4 mg/dL (8.4-10.2); Carbon Dioxide 35 mmol/L (22-30); Chloride 90 mmol/L (98-107); Glucose 217 mg/dL (74-99); Non-African American GFR(MDRD) >60 (>60 ml/min/1.73 sqM); Sodium 134 mmol/L (137-145)
[2017-06-09] MEDS: VANCOMYCIN 1,000 MG in SODIUM CHLORIDE 0.9% 250 ML IVPB SCH (05:05)
[2017-06-09 05:54] LABS: Glucose,Whole Blood 279 mg/dL (75-99)
[2017-06-09] MEDS: INSULIN LISPRO (humaLOG) 300 UNIT/3 ML VIAL SQ SCH ×4 (06:41→20:47)
[2017-06-09] MEDS: methylPREDNISolone SOD SUCCI 125 MG/2 ML VIAL IV SCH ×3 (06:41→17:34)
[2017-06-09] MEDS: FUROSEMIDE 40 MG TAB PO SCH ×2 (07:48→20:41)
[2017-06-09] MEDS: DOCUSATE 100 MG CAP PO SCH (07:48)
[2017-06-09] MEDS: guaiFENesin 600 MG TABLET.ER PO SCH ×2 (07:49→20:41)
[2017-06-09] MEDS: DIGOXIN 125 MCG TAB PO SCH (07:49)
[2017-06-09] MEDS: POTASSIUM CHLORIDE ER 10 MEQ TAB.ER.PRT PO SCH (07:49)
[2017-06-09] MEDS: BUDESONIDE 1 MG/2 ML NEBU INHALATION SCH ×2 (09:04→19:53)
[2017-06-09] MEDS: IPRATROPIUM-ALBUTEROL 3 ML NEB INHALATION PRN ×4 (09:04→19:53)
[2017-06-09] MEDS: FORMOTEROL FUMARATE 20 MCG/2 ML NEBU INHALATION SCH ×2 (09:04→19:53)
[2017-06-09 11:33] LABS: Glucose,Whole Blood 217 mg/dL (75-99)
--- NOTE | 2017-06-09 11:41 | P.PN ---
Subjective Interval history. 06/08/17- Patient is being seen evaluated and examined today on the selective care unit. Currently the patient's resting up in bed on 4 L of supplemental oxygen. She continues to complain of shortness of breath on and off with exertion. Patient does have a cough that is congested with yellow-green sputum. Patient recently had a thoracentesis on her last hospitalization with bilateral pleural effusions as well as a chest tube. She was discharged and was doing better however she came back to the emergency room on 06/05/2017 for progressive increase in shortness of breath. She has been stable on IV antibiotics and scheduled breathing treatments. Patient states her breathing is slightly better today than admission. She has been afebrile. No overnight events. Labs and reports of been reviewed 06/09/17 patient is being seen examined and evaluated today on rounds and the selective care unit. The patient continues to rest up in bed on 4 L of supplemental oxygen. She states that her shortness of breath with exertion is still persistent. She states she does have a congested cough however the secretions are very thick and she has a hard time bringing them up. She is on Mucinex. Cardiology is also following with the patient. She has been afebrile today and overnight events. All labs and reports have been reviewed. Patient did have an echo on June 07 which did show an ejection fraction of 50-55% she had moderate pulmonary hypertension right ventricular systolic pressure was measured at 70.36 mmHg. Patient did receive a 1 time dose of Lasix yesterday with good urine output. Objective - Vital Signs Vital signs: Vital Signs Temp 96.8 F L 06/09/17 07:51 Pulse 88 06/09/17 09:30 Resp 18 06/09/17 07:51 BP 105/63 06/09/17 07:51 Pulse Ox 100 06/09/17 07:51 Intake & Output 06/08/17 06/09/17 06/09/17 18:59 06:59 18:59 Intake Total 1016 250 180 Output Total 1250 1600 300 Balance -234 -1350 -120 Weight 45.9 kg Intake: IV 250 Vancomycin 1,000 mg In 250 Sodium Chloride 0.9% 250 ml @ 125 mls/hr IVPB Q8H [facility] Rx#:[id number] Oral 1016 180 Output: Urine 1250 1600 300 Other: Voiding Method Toilet Toilet # Voids 1 1 - Exam GENERAL EXAM: Alert, comfortable in no apparent distress. HEAD: Normocephalic. EYES: Normal reaction of pupils, equal size. NOSE: Clear with pink turbinates. THROAT: No erythema or exudates. NECK: No masses, no JVD. CHEST: No chest wall deformity. LUNGS: Poor air entry bilaterally, scattered expiratory wheezing noted. Bases diminished. CVS: S1 and S2 normal with no audible mumurs, regular rhythm. ABDOMEN: No hepatosplenomegaly, normal bowel sounds, no guarding or rigidity. EXTREMITIES: No edema noted, pedal pulses palpable. SKIN: No rashes CENTRAL NERVOUS SYSTEM: No focal deficits, tone is normal in all 4 extremities. - Labs CBC & Chem 7: 06/05/17 16:27 06/09/17 04:09 Labs: Abnormal Lab Results - Last 24 Hours (Table) 06/08/17 06/08/17 06/08/17 Range/Units 11:35 16:42 20:46 PT (9.0-12.0) sec INR (<1.2) Sodium (137-145) mmol/L Chloride (98-107) mmol/L Carbon Dioxide (22-30) mmol/L BUN (7-17) mg/dL Glucose (74-99) mg/dL POC Glucose (mg/dL) 273 H 209 H 150 H (75-99) mg/dL Vancomycin Trough ug/mL 06/09/17 06/09/17 06/09/17 Range/Units 04:09 04:09 04:09 PT 17.9 H (9.0-12.0) sec INR 1.9 H (<1.2) Sodium 134 L (137-145) mmol/L Chloride 90 L (98-107) mmol/L Carbon Dioxide 35 H (22-30) mmol/L BUN 27 H (7-17) mg/dL Glucose 217 H (74-99) mg/dL POC Glucose (mg/dL) (75-99) mg/dL Vancomycin Trough 36.8 H* ug/mL 06/09/17 06/09/17 Range/Units 05:50 11:32 PT (9.0-12.0) sec INR (<1.2) Sodium (137-145) mmol/L Chloride (98-107) mmol/L Carbon Dioxide (22-30) mmol/L BUN (7-17) mg/dL Glucose (74-99) mg/dL POC Glucose (mg/dL) 279 H 217 H (75-99) mg/dL Vancomycin Trough ug/mL Microbiology - Last 24 Hours (Table) 06/07/17 06:43 Blood Culture - Preliminary Blood No Growth after 48 hours Assessment and Plan Plan: Assessment 1 acute exacerbation of COPD complicated by possible tracheobronchitis and right -sided pleural effusion. #2 nicotine addiction #3 chronic persistent atrial fibrillation #4 chronic renal failure #5 history of liver disease #6 rheumatic mitral valve disease, mitral stenosis status post mitral valvoplasty #7 acute on chronic anemia #8 anorexia/cachexia syndrome #9 CHRONIC pleural effusion status post recent pigtail catheter insertion and drainage #10 abnormal troponins, not consistent with acute coronary syndrome, likely secondary to oxygen supply and demand mismatch. Plan Medications have been reviewed and will be continued as ordered. All labs and reports have been reviewed. Echo reviewed. No plans for thoracentesis at this time. Continue with pulmonary hygiene, coughing and deep breathing exercises, and supportive care. Supplemental oxygen to maintain oxygen saturations of 92% or better. Continue nebulizer treatments. GI and DVT prophylaxis. Cardiology also on consult and appreciate recommendations. We will continue to monitor labs/results and adjust treatment as necessary. Further recommendations pending. I performed an examination of the patient and discussed their management with the nurse practitioner. I have reviewed the nurse practitioner's note and agree with the documented findings and plan of care.
--- NOTE | 2017-06-09 11:56 | P.PN ---
Subjective Principal diagnosis: Shortness of breath and productive cough. 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 Patient was just recently in the hospital with bilateral pleural effusions and discharged home on May 25. EKG on arrival here showed atrial fibrillation with a controlled ventricular response and nonspecific ST-T wave changes. Chest x-ray reveals small to moderate right sided pleural effusion. Blood pressure on arrival 128/75 with a heart rate in the 80s, temperature 90.7. White blood cell count 8.4, hemoglobin 10.5, platelet count 312, sodium 135, potassium 4.5, BUN 11, creatinine 0.6. BNP level 3990, troponin 0.052. Patient was initiated on IV antibiotics in the emergency room. Cardiology consultation was requested on this admission because of abnormal troponins. Abnormal troponins not consistent with acute coronary syndrome, they have been also been abnormal in the past, likely secondary to oxygen supply and demand mismatch. Patient was seen and examined this morning, she states overall she is feeling much better today. Continues to have cough but much less productive. She does state that earlier this morning she felt more congested than she did yesterday. On exam, patient does have some fine rales noted to the bases along with her wheezing. We will give her a one-time dose of IV Lasix today. Blood pressure 124/70 with a heart rate in the 80s. Sodium 134, potassium 4.4, BUN 21, creatinine 0.7. 06/09/2017 Seen and examined this morning, overall feeling much better. She continues to have a productive cough, however states not as much is coming out as previously. She did diurese well with the IV Lasix yesterday. BUN 27, creatinine 0.8, potassium 4.0, INR 1.9 today. Objective - Vital Signs Vital signs: Vital Signs Temp 96.8 F L 06/09/17 07:51 Pulse 88 06/09/17 09:30 Resp 18 06/09/17 07:51 BP 105/63 06/09/17 07:51 Pulse Ox 100 06/09/17 07:51 Intake & Output 06/08/17 06/09/17 06/09/17 18:59 06:59 18:59 Intake Total 1016 250 180 Output Total 1250 1600 300 Balance -234 -1350 -120 Weight 45.9 kg Intake: IV 250 Vancomycin 1,000 mg In 250 Sodium Chloride 0.9% 250 ml @ 125 mls/hr IVPB Q8H [facility] Rx#:[id number] Oral 1016 180 Output: Urine 1250 1600 300 Other: Voiding Method Toilet Toilet # Voids 1 1 - Exam PHYSICAL EXAMINATION: HEENT: Head is atraumatic, normocephalic. Pupils equal, round. Neck is supple. There is no elevated jugular venous pressure. HEART EXAMINATION: Heart S1 and S2 irregularly irregular a systolic murmur is heard CHEST EXAMINATION: Lungs reveal decreased air exchange throughout with scattered wheezing, fine rales heard at bilateral bases. ABDOMEN: Soft, nontender. Bowel sounds are heard. No organomegaly noted. EXTREMITIES: 2+ peripheral pulses with no evidence of peripheral edema and no calf tenderness noted. NEUROLOGIC patient is awake, alert and oriented -3. . - Labs CBC & Chem 7: 06/05/17 16:27 06/09/17 04:09 Labs: Abnormal Lab Results - Last 24 Hours (Table) 06/08/17 06/08/17 06/09/17 Range/Units 16:42 20:46 04:09 PT (9.0-12.0) sec INR (<1.2) Sodium 134 L (137-145) mmol/L Chloride 90 L (98-107) mmol/L Carbon Dioxide 35 H (22-30) mmol/L BUN 27 H (7-17) mg/dL Glucose 217 H (74-99) mg/dL POC Glucose (mg/dL) 209 H 150 H (75-99) mg/dL Vancomycin Trough ug/mL 06/09/17 06/09/17 06/09/17 Range/Units 04:09 04:09 05:50 PT 17.9 H (9.0-12.0) sec INR 1.9 H (<1.2) Sodium (137-145) mmol/L Chloride (98-107) mmol/L Carbon Dioxide (22-30) mmol/L BUN (7-17) mg/dL Glucose (74-99) mg/dL POC Glucose (mg/dL) 279 H (75-99) mg/dL Vancomycin Trough 36.8 H* ug/mL 06/09/17 Range/Units 11:32 PT (9.0-12.0) sec INR (<1.2) Sodium (137-145) mmol/L Chloride (98-107) mmol/L Carbon Dioxide (22-30) mmol/L BUN (7-17) mg/dL Glucose (74-99) mg/dL POC Glucose (mg/dL) 217 H (75-99) mg/dL Vancomycin Trough ug/mL Microbiology - Last 24 Hours (Table) 06/07/17 06:43 Blood Culture - Preliminary Blood No Growth after 48 hours Assessment and Plan Plan: Assessment and plan #1 acute exacerbation of COPD complicated by possible tracheobronchitis and right-sided pleural effusion. #2 nicotine dependence #3 chronic persistent atrial fibrillation #4 chronic renal failure #5 history of liver disease #6 rheumatic mitral valve disease, mitral stenosis status post mitral valvoplasty #7 acute on chronic anemia #8 anorexia/cachexia syndrome #9 CHRONIC pleural effusion status post recent pigtail catheter insertion and drainage #10 abnormal troponins, not consistent with acute coronary syndrome, likely secondary to oxygen supply and demand mismatch. Plan From cardiology's perspective, we'll continue current medications including Lasix 40 mg by mouth twice a day. DNP note has been reviewed, I agree with a documented findings and plan of care. Patient was seen and examined.
[2017-06-09] MEDS: FERROUS SULFATE 325 MG TAB PO SCH (12:11)
[2017-06-09] MEDS: NICOTINE 14MG/24HR PATCH TRANSDERM SCH (13:28)
[2017-06-09] MEDS: PANTOPRAZOLE 40 MG TABLET PO SCH (15:06)
[2017-06-09 17:33] LABS: Glucose,Whole Blood 220 mg/dL (75-99)
[2017-06-09] MEDS: LEVOFLOXACIN 750 MG TAB PO SCH (17:34)
[2017-06-09] MEDS: WARFARIN 2 MG TAB PO SCH (17:34)
--- NOTE | 2017-06-09 18:01 | PN ---
DATE OF SERVICE: 06/08/2017 This is a 57-year-old white female who has multiple chronic illnesses and she is known to have a very severe mitral stenosis and she has had mitral valvuloplasty two times in the past. She was recently evaluated by cardiac surgeon and he recommended continued medical management. Her overall poor general condition makes her not qualified for a surgical procedure. The patient also has chronic atrial fibrillation and chronic congestive heart failure. She has chronic restrictive pulmonary disease and had multiple hospitalizations for acute exacerbation and pneumonia and recently pleural effusion and pneumothorax. Dr. Hinds is following the patient. The patient is admitted this time again with increasing shortness of breath and cough with expectoration. The patient has been started on IV antibiotics. Dr. Hinds has been consulted and he is following the patient. She also has chronic congestive heart failure and [facility] seeing the patient, they are following the patient. She is using nasal oxygen currently but is alert and oriented. She also has diabetes mellitus and being controlled with NovoLog sliding scale. Her vital signs have been stable. Her overall prognosis is guarded. We will continue current medications and when her condition becomes stable she will be discharged home with home health care. [facility]
--- NOTE | 2017-06-09 19:14 | PN ---
DATE OF SERVICE: 06/09/2017 This is a 57-year-old white female who was admitted with increasing shortness of breath and general weakness and cough, productive of yellowish sputum. Patient was admitted to the hospital for further evaluation and treatment and she has been started on IV antibiotics, updraft treatments and IV Solu-Medrol. Patient is also known to have diabetes mellitus, being controlled with NovoLog sliding scale. Patient has chronic atrial fibrillation, chronic advanced mitral stenosis and chronic congestive heart failure, chronic obstructive pulmonary disease. Patient is being seen by ( ). She is being followed by Dr. Segun Hinds in consultation. The patient has a recent history of pleural effusion and pneumothorax, but the pneumothorax has completely resolved. There is still some pleural effusion. Patient is using nasal oxygen constantly. Patient was also seen by [facility] in consultation, and they were following the patient. Overall prognosis is guarded. Patient has some improvement in her symptoms. She uses nasal oxygen constantly. Today patient is alert and oriented , but she has some increased shortness of breath, using nasal oxygen. She had received an extra dose of Lasix. She is also getting updraft treatment. Overall prognosis guarded. Diagnosis, prognosis and therapeutic plans were discussed in detail with the patient today. [facility]
[2017-06-09 20:28] LABS: Glucose,Whole Blood 195 mg/dL (75-99)
[2017-06-09] MEDS: ATORVASTATIN 40 MG TAB PO SCH (20:41)
[2017-06-09] MEDS ORDERED: VANCOMYCIN 750 MG in SODIUM CHLORIDE 0.9% 250 ML IVPB SCH (22:00)
[2017-06-09] MEDS: CLOTRIMAZOLE TROCHE 10 MG TROCHE MUCOUS MEM SCH (22:45)
--- NOTE | 2017-06-09 23:00 | P.PN ---
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 Sudden worsening of the shortness of breath. Presented to the with profound weakness and shortness of breath. Denies fever chills or sweats. No productive cough. Complains of some dry mouth and mild difficulty swallowing. Is jittery from her many medications. Difficulty sleeping. Objective - Vital Signs Vital signs: Vital Signs Temp 96.1 F L 06/09/17 16:00 Pulse 88 06/09/17 20:19 Resp 18 06/09/17 16:00 BP 150/84 06/09/17 16:00 Pulse Ox 100 06/09/17 16:00 Intake & Output 06/09/17 06/09/17 06/10/17 06:59 18:59 06:59 Intake Total 250 180 Output Total 1600 300 Balance -1350 -120 Weight 45.9 kg Intake: IV 250 Vancomycin 1,000 mg In 250 Sodium Chloride 0.9% 250 ml @ 125 mls/hr IVPB Q8H [facility] Rx#:[id number] Oral 180 Output: Urine 1600 300 Other: Voiding Method Toilet # Voids 1 - Exam 57-year-old woman who looks much older than her stated age. She is chronically ill. HEENT: Anicteric conjunctiva are pink and moist nasal mucosa grossly intact without significant lesions, there is no thrush. Poor dentition significant thrush Neck: The neck is supple without significant lymphadenopathy or thyromegaly. Lungs: Symmetrical air entry with wheezes scattered throughout the lung iqbal. no dullness of egophony Heart: irregular no S3 loud S4 There is no significant murmur click or rub, PMI was nondisplaced. Abdomen: Positive bowel sounds soft and nontender without palpable masses or organomegaly. There was no guarding or rebound. Extremities: The extremities have just trace edema. She has no tenderness over the joints. Skin the patient has changes of diabetes her lower extremities however she has a difficulty with chronically picking at her skin and has innumerable lesions that healed over arms and legs at this time. None of them are open are grossly draining at this time is evidence of some erythema to the coccyx. With this the Aquacel silver dressing has been applied. It has the foam border. Neuro: She is awake alert oriented to person place and time and does not exhibit any acute gross focal sensory motor deficits - Labs CBC & Chem 7: 06/05/17 16:27 06/09/17 04:09 Labs: Abnormal Lab Results - Last 24 Hours (Table) 06/09/17 06/09/17 06/09/17 Range/Units 04:09 04:09 04:09 PT 17.9 H (9.0-12.0) sec INR 1.9 H (<1.2) Sodium 134 L (137-145) mmol/L Chloride 90 L (98-107) mmol/L Carbon Dioxide 35 H (22-30) mmol/L BUN 27 H (7-17) mg/dL Glucose 217 H (74-99) mg/dL POC Glucose (mg/dL) (75-99) mg/dL Vancomycin Trough 36.8 H* ug/mL 06/09/17 06/09/17 06/09/17 Range/Units 05:50 11:32 17:31 PT (9.0-12.0) sec INR (<1.2) Sodium (137-145) mmol/L Chloride (98-107) mmol/L Carbon Dioxide (22-30) mmol/L BUN (7-17) mg/dL Glucose (74-99) mg/dL POC Glucose (mg/dL) 279 H 217 H 220 H (75-99) mg/dL Vancomycin Trough ug/mL 06/09/17 Range/Units 20:26 PT (9.0-12.0) sec INR (<1.2) Sodium (137-145) mmol/L Chloride (98-107) mmol/L Carbon Dioxide (22-30) mmol/L BUN (7-17) mg/dL Glucose (74-99) mg/dL POC Glucose (mg/dL) 195 H (75-99) mg/dL Vancomycin Trough ug/mL Microbiology - Last 24 Hours (Table) 06/07/17 06:43 Blood Culture - Preliminary Blood No Growth after 48 hours Laboratory Results WBC 8.4 k/uL (3.8-10.6) 06/05/17 16:27 RBC 4.93 m/uL (3.80-5.40) 06/05/17 16:27 Hgb 10.5 gm/dL (11.4-16.0) L 06/05/17 16:27 Hct 35.7 % (34.0-46.0) 06/05/17 16:27 MCV 72.3 fL (80.0-100.0) L 06/05/17 16:27 MCH 21.3 pg (25.0-35.0) L 06/05/17 16:27 MCHC 29.4 g/dL (31.0-37.0) L 06/05/17 16:27 RDW 17.5 % (11.5-15.5) H 06/05/17 16:27 Plt Count 312 k/uL (150-450) 06/05/17 16: Neutrophils % 82 % 06/05/17 16: Lymphocytes % 14 % 06/05/17 16:27 Monocytes % 2 % 06/05/17 16:27 Eosinophils % 1 % 06/05/17 16: Basophils % 0 % 06/05/17 16:27 Neutrophils # 6.9 k/uL (1.3-7.7) 06/05/17 16:27 Lymphocytes # 1.2 k/uL (1.0-4.8) 06/05/17 16:27 Monocytes # 0.2 k/uL (0-1.0) 06/05/17 16:27 Eosinophils # 0.1 k/uL (0-0.7) 06/05/17 16:27 Basophils # 0.0 k/uL (0-0.2) 06/05/17 16:27 Hypochromasia Marked 06/05/17 16:27 Poikilocytosis Slight 06/05/17 16:27 Anisocytosis Slight 06/05/17 16:27 Microcytosis Moderate 06/05/17 16:27 PT 17.9 sec (9.0-12.0) H 06/09/17 04:09 INR 1.9 (<1.2) H 06/09/17 04:09 APTT 27.3 sec (22.0-30.0) 06/05/17 16:27 Sodium 134 mmol/L (137-145) L 06/09/17 04:09 Potassium 4.0 mmol/L (3.5-5.1) 06/09/17 04:09 Chloride 90 mmol/L (98-107) L 06/09/17 04:09 Carbon Dioxide 35 mmol/L (22-30) H 06/09/17 04:09 Anion Gap 9 mmol/L 06/09/17 04:09 BUN 27 mg/dL (7-17) H 06/09/17 04:09 Creatinine 0.80 mg/dL (0.52-1.04) 06/09/17 04:09 Est GFR (MDRD) Af Amer >60 (>60 ml/min/1.73 sqM) 06/09/17 04:09 Est GFR (MDRD) Non-Af >60 (>60 ml/min/1.73 sqM) 06/09/17 04:09 Glucose 217 mg/dL (74-99) H 06/09/17 04:09 POC Glucose (mg/dL) 195 mg/dL (75-99) H 06/09/17 20:26 POC Glu Oil [employer] ID Luz Marina Grossman 06/09/17 20:26 Lactic Ac Sepsis Rflx Y 06/06/17 10:36 Plasma Lactic Acid Agustin 1.7 mmol/L (0.7-2.0) 06/08/17 03:35 Calcium 9.4 mg/dL (8.4-10.2) 06/09/17 04:09 Magnesium 1.7 mg/dL (1.6-2.3) 06/05/17 16:27 Total Bilirubin 1.1 mg/dL (0.2-1.3) 06/05/17 16:27 AST 33 U/L (14-36) 06/05/17 16:27 ALT 37 U/L (9-52) 06/05/17 16:27 Alkaline Phosphatase 73 U/L (38-126) 06/05/17 16:27 Total Creatine Kinase 44 U/L (30-135) 06/05/17 16:27 CK-MB (CK-2) 3.8 ng/mL (0.0-2.4) H* 06/05/17 16:27 CK-MB (CK-2) Rel Index 8.6 06/05/17 16:27 Troponin I 0.052 ng/mL (0.000-0.034) H* 06/05/17 16:27 NT-Pro-B Natriuret Pep 3990 pg/mL 06/05/17 16:27 Total Protein 6.3 g/dL (6.3-8.2) 06/05/17 16:27 Albumin 3.8 g/dL (3.5-5.0) 06/05/17 16:27 Vancomycin Trough 36.8 ug/mL H* 06/09/17 04:09 Microbiology 06/07/17 06:43 Blood Blood Culture - Preliminary No Growth after 48 hours 06/05/17 16:27 Blood Blood Culture Gram Stain - Final 06/05/17 16:27 Blood Blood Culture - Final Coagulase Negative Staph 06/05/17 16:27 Blood Blood Culture - Final Assessment and Plan (1) Decompensated COPD with exacerbation (chronic obstructive pulmonary disease) Status: Acute (2) Bacteremia due to Gram-positive bacteria Narrative/Plan: 57-year-old female who has advanced COPD that is oxygen and inhaled steroid dependent was recently hospitalized for several weeks with significant complications of her lung disease. She developed pneumonia as well as significant effusion. She also had a pneumothorax. After drainage and chest tube placement she finally improved. There was plans for her to go to extended care but she went to the outpatient home setting instead. She was doing relatively well. She however is a smoker and is exposed to smokers. He now has another exacerbation of her COPD. She presents to Hospital feeling very poorly. She however is rapidly improving with systemic steroids and respiratory treatments and oxygen therapy. Does not feel as poorly as she did with her last admission. Admission workup was initiated and there is no positive blood culture. Antibiotic therapy will be levofloxacin Vancomycin is discontinued with evidence of the possible culture with coagulase negative Staphylococcus, follow blood culture is negative Improve protein intake is encouraged. Needs ongoing smoking cessation help. Status: Acute
[2017-06-10] MEDS: methylPREDNISolone SOD SUCCI 125 MG/2 ML VIAL IV SCH ×5 (00:01→23:44)
[2017-06-10] MEDS: ALPRAZolam 0.25 MG TAB PO PRN (00:01)
[2017-06-10] MEDS: CLOTRIMAZOLE TROCHE 10 MG TROCHE MUCOUS MEM SCH ×6 (00:01→23:44)
[2017-06-10] MEDS: HYDROmorphone 1 MG/ML 1 ML SYRINGE IVP PRN ×6 (00:01→21:47)
[2017-06-10] MEDS: HYDROcodone/APAP 10-325MG 1 EACH TAB PO PRN ×3 (04:23→21:46)
[2017-06-10] MEDS: BUDESONIDE 1 MG/2 ML NEBU INHALATION SCH ×2 (06:54→20:31)
[2017-06-10] MEDS: FORMOTEROL FUMARATE 20 MCG/2 ML NEBU INHALATION SCH ×2 (06:54→20:31)
[2017-06-10] MEDS: IPRATROPIUM-ALBUTEROL 3 ML NEB INHALATION PRN ×4 (06:54→20:30)
[2017-06-10] MEDS: guaiFENesin 600 MG TABLET.ER PO SCH ×2 (08:04→21:48)
[2017-06-10] MEDS: DOCUSATE 100 MG CAP PO SCH (08:04)
[2017-06-10] MEDS: DIGOXIN 125 MCG TAB PO SCH (08:05)
[2017-06-10] MEDS: PANTOPRAZOLE 40 MG TABLET PO SCH (08:05)
[2017-06-10] MEDS: FUROSEMIDE 40 MG TAB PO SCH ×2 (08:05→21:49)
[2017-06-10] MEDS: POTASSIUM CHLORIDE ER 10 MEQ TAB.ER.PRT PO SCH (08:06)
[2017-06-10 08:08] LABS: Glucose,Whole Blood 198 mg/dL (75-99)
[2017-06-10] MEDS: INSULIN LISPRO (humaLOG) 300 UNIT/3 ML VIAL SQ SCH ×4 (08:12→21:49)
[2017-06-10 08:14] LABS: Anion Gap 9 mmol/L; Blood Urea Nitrogen 28 mg/dL (7-17); Calcium 9.1 mg/dL (8.4-10.2); Carbon Dioxide 36 mmol/L (22-30); Chloride 91 mmol/L (98-107); Glucose 169 mg/dL (74-99); Non-African American GFR(MDRD) >60 (>60 ml/min/1.73 sqM); Potassium 3.7 mmol/L (3.5-5.1); Sodium 136 mmol/L (137-145)
[2017-06-10 11:39] LABS: INR 1.6 (<1.2); Prothrombin Time 15.7 sec (9.0-12.0)
[2017-06-10 11:51] LABS: Glucose,Whole Blood 242 mg/dL (75-99)
[2017-06-10] MEDS: FERROUS SULFATE 325 MG TAB PO SCH (13:00)
--- NOTE | 2017-06-10 13:12 | P.PN ---
Subjective Interval history. 06/08/17- Patient is being seen evaluated and examined today on the selective care unit. Currently the patient's resting up in bed on 4 L of supplemental oxygen. She continues to complain of shortness of breath on and off with exertion. Patient does have a cough that is congested with yellow-green sputum. Patient recently had a thoracentesis on her last hospitalization with bilateral pleural effusions as well as a chest tube. She was discharged and was doing better however she came back to the emergency room on 06/05/2017 for progressive increase in shortness of breath. She has been stable on IV antibiotics and scheduled breathing treatments. Patient states her breathing is slightly better today than admission. She has been afebrile. No overnight events. Labs and reports of been reviewed 06/09/17 patient is being seen examined and evaluated today on rounds and the selective care unit. The patient continues to rest up in bed on 4 L of supplemental oxygen. She states that her shortness of breath with exertion is still persistent. She states she does have a congested cough however the secretions are very thick and she has a hard time bringing them up. She is on Mucinex. Cardiology is also following with the patient. She has been afebrile today and overnight events. All labs and reports have been reviewed. Patient did have an echo on June 07 which did show an ejection fraction of 50-55% she had moderate pulmonary hypertension right ventricular systolic pressure was measured at 70.36 mmHg. Patient did receive a 1 time dose of Lasix yesterday with good urine output. 06/10/17- patient is being seen examined and evaluated today on rounds on the fourth floor. She continues to rest up in bed on 4 L of supplemental oxygen. Persistent shortness of breath with exertion continues with cough and congestion , however is less severe today. The labs and reports have been reviewed. Patient is also being followed by cardiology and infectious disease. She is afebrile no overnight events. Objective - Vital Signs Vital signs: Vital Signs Temp 97.1 F L 06/10/17 07:00 Pulse 94 06/10/17 11:26 Resp 18 06/10/17 08:00 BP 141/76 06/10/17 07:00 Pulse Ox 100 06/10/17 07:00 Intake & Output 06/09/17 06/10/17 06/10/17 18:59 06:59 18:59 Intake Total 180 Output Total 300 Balance -120 Intake: Oral 180 Output: Urine 300 Other: Voiding Method Toilet # Voids 2 1 # Bowel Movements 1 - Exam GENERAL EXAM: Alert, comfortable in no apparent distress. HEAD: Normocephalic. EYES: Normal reaction of pupils, equal size. NOSE: Clear with pink turbinates. THROAT: No erythema or exudates. NECK: No masses, no JVD. CHEST: No chest wall deformity. LUNGS: Poor air entry bilaterally, scattered expiratory wheezing noted. Bases diminished. CVS: S1 and S2 normal with no audible mumurs, regular rhythm. ABDOMEN: No hepatosplenomegaly, normal bowel sounds, no guarding or rigidity. EXTREMITIES: No edema noted, pedal pulses palpable. SKIN: No rashes CENTRAL NERVOUS SYSTEM: No focal deficits, tone is normal in all 4 extremities. - Labs CBC & Chem 7: 06/05/17 16:27 06/10/17 07:29 Labs: Abnormal Lab Results - Last 24 Hours (Table) 06/09/17 06/09/17 06/10/17 Range/Units 17:31 20:26 07:29 PT (9.0-12.0) sec INR (<1.2) Sodium 136 L (137-145) mmol/L Chloride 91 L (98-107) mmol/L Carbon Dioxide 36 H (22-30) mmol/L BUN 28 H (7-17) mg/dL Glucose 169 H (74-99) mg/dL POC Glucose (mg/dL) 220 H 195 H (75-99) mg/dL 06/10/17 06/10/17 06/10/17 Range/Units 07:29 08:04 11:49 PT 15.7 H (9.0-12.0) sec INR 1.6 H (<1.2) Sodium (137-145) mmol/L Chloride (98-107) mmol/L Carbon Dioxide (22-30) mmol/L BUN (7-17) mg/dL Glucose (74-99) mg/dL POC Glucose (mg/dL) 198 H 242 H (75-99) mg/dL Microbiology - Last 24 Hours (Table) 06/07/17 06:43 Blood Culture - Preliminary Blood No Growth after 72 hours Assessment and Plan Plan: Assessment 1 acute exacerbation of COPD complicated by possible tracheobronchitis and right -sided pleural effusion. #2 nicotine addiction #3 chronic persistent atrial fibrillation #4 chronic renal failure #5 history of liver disease #6 rheumatic mitral valve disease, mitral stenosis status post mitral valvoplasty #7 acute on chronic anemia #8 anorexia/cachexia syndrome #9 CHRONIC pleural effusion status post recent pigtail catheter insertion and drainage #10 abnormal troponins, not consistent with acute coronary syndrome, likely secondary to oxygen supply and demand mismatch. Plan Medications have been reviewed and will be continued as ordered. All labs and reports have been reviewed. Echo reviewed. No plans for thoracentesis at this time. Repeat labs tomorrow. We will decrease her steroids today. Continue with pulmonary hygiene, coughing and deep breathing exercises, and supportive care. Supplemental oxygen to maintain oxygen saturations of 92% or better. Continue nebulizer treatments. GI and DVT prophylaxis. Cardiology also on consult and appreciate recommendations. We will continue to monitor labs/ results and adjust treatment as necessary. Further recommendations pending. I performed an examination of the patient and discussed their management with the nurse practitioner. I have reviewed the nurse practitioner's note and agree with the documented findings and plan of care.
[2017-06-10] MEDS: NICOTINE 14MG/24HR PATCH TRANSDERM SCH (15:18)
[2017-06-10] MEDS: MAGNESIUM HYDROXIDE 2,400 MG/10 ML CUP PO PRN (15:18)
--- NOTE | 2017-06-10 15:49 | PN ---
DATE OF SERVICE: 06/10/2017 This 57-year-old white female who was admitted to the hospital this time with increasing shortness of breath and cough with expectoration and she has multiple chronic comorbid illness and she is known to have chronic atrial fibrillation and severe mitral stenosis, chronic congestive heart failure, chronic obstructive pulmonary disease, diabetes mellitus, hypertensive cardiovascular disease and she has had multiple hospitalizations. Also, she is extremely weak. She was admitted this time with a diagnosis of COPD with acute exacerbation and acute bronchitis. The patient also had acute on chronic congestive heart failure. The patient was seen by Dr. Hinds in consultation. Recently the patient had pleural effusion and pneumothorax and the pneumothorax has completely resolved. The patient is currently on Levaquin and the patient was initially on vancomycin. She had a bacteremia from gram positive cocci. The patient was seen and followed by Dr. Castellon. The patient also has a history of anemia and has had transfusions in the past. The patient is clinically getting better, still using nasal oxygen constantly and she is extremely short of breath on exertion. We will continue current medications and chair and manager [place] are following the patient. When her condition becomes stable and better she will be discharged home with home health care. The prognosis is guarded. The diagnoses, prognosis and therapeutic plans were discussed in detail with the patient today. [facility]
[2017-06-10 16:55] LABS: Glucose,Whole Blood 284 mg/dL (75-99)
[2017-06-10] MEDS: LEVOFLOXACIN 750 MG TAB PO SCH (17:07)
[2017-06-10] MEDS: WARFARIN 2 MG TAB PO SCH (17:07)
[2017-06-10] MEDS ORDERED: BISACODYL 10 MG SUPP RECTAL STA (20:55)
[2017-06-10 21:03] LABS: Glucose,Whole Blood 173 mg/dL (75-99)
[2017-06-10] MEDS: ATORVASTATIN 40 MG TAB PO SCH (21:48)
[2017-06-11] MEDS: HYDROmorphone 1 MG/ML 1 ML SYRINGE IVP PRN ×6 (01:22→22:01)
[2017-06-11] MEDS: ALPRAZolam 0.25 MG TAB PO PRN ×3 (02:11→21:58)
[2017-06-11] MEDS: MAGNESIUM HYDROXIDE 2,400 MG/10 ML CUP PO PRN (02:20)
[2017-06-11] MEDS: IPRATROPIUM-ALBUTEROL 3 ML NEB INHALATION PRN ×5 (02:42→19:40)
[2017-06-11] MEDS: traZODone HCL 50 MG TAB PO PRN (03:09)
[2017-06-11] MEDS: CLOTRIMAZOLE TROCHE 10 MG TROCHE MUCOUS MEM SCH ×4 (06:06→21:58)
[2017-06-11 07:30] LABS: Glucose,Whole Blood 200 mg/dL (75-99)
[2017-06-11] MEDS: HYDROcodone/APAP 10-325MG 1 EACH TAB PO PRN ×2 (08:03→16:47)
[2017-06-11] MEDS: PANTOPRAZOLE 40 MG TABLET PO SCH (08:04)
[2017-06-11] MEDS: DOCUSATE 100 MG CAP PO SCH (08:04)
[2017-06-11] MEDS: methylPREDNISolone SOD SUCCI 125 MG/2 ML VIAL IV SCH ×2 (08:04→16:47)
[2017-06-11] MEDS: POTASSIUM CHLORIDE ER 10 MEQ TAB.ER.PRT PO SCH (08:04)
[2017-06-11] MEDS: DIGOXIN 125 MCG TAB PO SCH (08:04)
[2017-06-11] MEDS: INSULIN LISPRO (humaLOG) 300 UNIT/3 ML VIAL SQ SCH ×4 (08:04→22:00)
[2017-06-11] MEDS: guaiFENesin 600 MG TABLET.ER PO SCH ×2 (08:04→21:59)
[2017-06-11] MEDS: FUROSEMIDE 40 MG TAB PO SCH ×2 (08:04→21:59)
[2017-06-11] MEDS: FORMOTEROL FUMARATE 20 MCG/2 ML NEBU INHALATION SCH ×2 (08:30→19:40)
[2017-06-11] MEDS: BUDESONIDE 1 MG/2 ML NEBU INHALATION SCH ×2 (08:30→19:40)
[2017-06-11 08:40] LABS: Anisocytosis Slight; Basophils % (A) 0 %; CH 20.8; CHCM 28.6; Eosinophils % (A) 0 %; HCT 35.7 % (34.0-46.0); HDW 3.57; HGB 10.3 gm/dL (11.4-16.0); Hypochromasia Marked; Luc # (Auto) 0.14; Luc % (Auto) 1; Lymphocytes # (A) 0.9 k/uL (1.0-4.8); Lymphocytes % (A) 7 %; MCH 20.9 pg (25.0-35.0); MCHC 28.7 g/dL (31.0-37.0); MCV 72.8 fL (80.0-100.0); Mean Platelet Volume 6.7; Microcytosis Moderate; Monocytes # (A) 0.7 k/uL (0-1.0); Monocytes % (A) 5 %; Neutrophils # (A) 10.6 k/uL (1.3-7.7); Neutrophils % (A) 86 %; Poikilocytosis Slight; RBC 4.91 m/uL (3.80-5.40); RDW 17.2 % (11.5-15.5); WBC 12.4 k/uL (3.8-10.6); WBC (Perox) 12.45
[2017-06-11 08:56] LABS: Blood Urea Nitrogen 30 mg/dL (7-17); Calcium 9.2 mg/dL (8.4-10.2); Chloride 86 mmol/L (98-107); Glucose 179 mg/dL (74-99); Non-African American GFR(MDRD) >60 (>60 ml/min/1.73 sqM); Sodium 135 mmol/L (137-145)
[2017-06-11 09:04] LABS: Anion Gap 7 mmol/L
[2017-06-11 09:14] LABS: Carbon Dioxide 42 mmol/L (22-30)
[2017-06-11 09:34] VITALS: BMI 15.8
[2017-06-11 12:32] LABS: Glucose,Whole Blood 254 mg/dL (75-99)
[2017-06-11] MEDS: FERROUS SULFATE 325 MG TAB PO SCH (12:42)
--- NOTE | 2017-06-11 13:50 | PN ---
DATE OF SERVICE: 06/11/2017 This is a 57-year-old white female who was admitted with severe shortness of breath and general weakness and she also had severe productive cough. The patient was admitted with diagnosis of COPD with acute exacerbation and acute bronchitis. Patient has had several hospitalizations in the past with COPD and acute exacerbation and pneumonia, pleural effusion, pneumothorax and patient was recently discharged from the hospital after treatment of pleural effusion and pneumothorax. Apparently pneumothorax has completely resolved. The patient was started on IV antibiotics and Dr. Segun Hinds is following her for her pulmonary problems. She also has very severe mitral stenosis and chronic atrial fibrillation and chronic congestive heart failure. [facility] has been consulted and they are also following the patient. Apparently patient has a history of anemia and he has received multiple transfusions in the past, but today her hemoglobin seems to be around 10. Patient is still extremely short of breath and using nasal oxygen constantly. Otherwise, her vital signs are stable. Will gradually increase her activities and when her condition is stable we will discharge her home. The prognosis is guarded. The diagnosis, prognosis and therapeutic plans are discussed in detail with the patient today. IS[facility]
--- NOTE | 2017-06-11 14:20 | P.PN ---
Subjective Interval history. 06/08/17- Patient is being seen evaluated and examined today on the selective care unit. Currently the patient's resting up in bed on 4 L of supplemental oxygen. She continues to complain of shortness of breath on and off with exertion. Patient does have a cough that is congested with yellow-green sputum. Patient recently had a thoracentesis on her last hospitalization with bilateral pleural effusions as well as a chest tube. She was discharged and was doing better however she came back to the emergency room on 06/05/2017 for progressive increase in shortness of breath. She has been stable on IV antibiotics and scheduled breathing treatments. Patient states her breathing is slightly better today than admission. She has been afebrile. No overnight events. Labs and reports of been reviewed 06/09/17 patient is being seen examined and evaluated today on rounds and the selective care unit. The patient continues to rest up in bed on 4 L of supplemental oxygen. She states that her shortness of breath with exertion is still persistent. She states she does have a congested cough however the secretions are very thick and she has a hard time bringing them up. She is on Mucinex. Cardiology is also following with the patient. She has been afebrile today and overnight events. All labs and reports have been reviewed. Patient did have an echo on June 07 which did show an ejection fraction of 50-55% she had moderate pulmonary hypertension right ventricular systolic pressure was measured at 70.36 mmHg. Patient did receive a 1 time dose of Lasix yesterday with good urine output. 06/10/17- patient is being seen examined and evaluated today on rounds on the fourth floor. She continues to rest up in bed on 4 L of supplemental oxygen. Persistent shortness of breath with exertion continues with cough and congestion , however is less severe today. The labs and reports have been reviewed. Patient is also being followed by cardiology and infectious disease. She is afebrile no overnight events. 06/11/17- patient is seen and evaluated and examined today in the fourth floor. Who lives in reports have been reviewed the patient was noted to have critical CO2 level of 42 this morning. Patient will be placed on Diamox 250 mg twice a day for 7 days to help lower this level. Currently the patient is resting up in bed on 4 L of supplemental oxygen via nasal cannula continues to be short of breath with exertion and/or activity. Cough and congestion and remain. She is afebrile no overnight events. Objective - Vital Signs Vital signs: Vital Signs Temp 97.0 F L 06/11/17 07:00 Pulse 88 06/11/17 12:10 Resp 20 06/11/17 07:00 BP 134/72 06/11/17 07:00 Pulse Ox 97 06/11/17 07:00 Intake & Output 06/10/17 06/11/17 06/11/17 18:59 06:59 18:59 Intake Total 100 300 Output Total 1 Balance 99 300 Weight 45.9 kg Intake: Oral 100 300 Output: Stool 1 Other: Voiding Method Toilet # Voids 2 3 1 # Bowel Movements 1 - Exam GENERAL EXAM: Alert, comfortable in no apparent distress. HEAD: Normocephalic. EYES: Normal reaction of pupils, equal size. NOSE: Clear with pink turbinates. THROAT: No erythema or exudates. NECK: No masses, no JVD. CHEST: No chest wall deformity. LUNGS: Poor air entry bilaterally, scattered expiratory wheezing noted. Bases diminished. CVS: S1 and S2 normal with no audible mumurs, regular rhythm. ABDOMEN: No hepatosplenomegaly, normal bowel sounds, no guarding or rigidity. EXTREMITIES: No edema noted, pedal pulses palpable. SKIN: No rashes CENTRAL NERVOUS SYSTEM: No focal deficits, tone is normal in all 4 extremities. - Labs CBC & Chem 7: 06/11/17 07:57 06/11/17 07:57 Labs: Abnormal Lab Results - Last 24 Hours (Table) 06/10/17 06/10/17 06/11/17 Range/Units 16:51 20:58 07:13 WBC (3.8-10.6) k/uL Hgb (11.4-16.0) gm/dL MCV (80.0-100.0) fL MCH (25.0-35.0) pg MCHC (31.0-37.0) g/dL RDW (11.5-15.5) % Neutrophils # (1.3-7.7) k/uL Lymphocytes # (1.0-4.8) k/uL Sodium (137-145) mmol/L Chloride (98-107) mmol/L Carbon Dioxide (22-30) mmol/L BUN (7-17) mg/dL Glucose (74-99) mg/dL POC Glucose (mg/dL) 284 H 173 H 200 H (75-99) mg/dL 06/11/17 06/11/17 06/11/17 Range/Units 07:57 07:57 12:24 WBC 12.4 H (3.8-10.6) k/uL Hgb 10.3 L (11.4-16.0) gm/dL MCV 72.8 L (80.0-100.0) fL MCH 20.9 L (25.0-35.0) pg MCHC 28.7 L (31.0-37.0) g/dL RDW 17.2 H (11.5-15.5) % Neutrophils # 10.6 H (1.3-7.7) k/uL Lymphocytes # 0.9 L (1.0-4.8) k/uL Sodium 135 L (137-145) mmol/L Chloride 86 L (98-107) mmol/L Carbon Dioxide 42 H* (22-30) mmol/L BUN 30 H (7-17) mg/dL Glucose 179 H (74-99) mg/dL POC Glucose (mg/dL) 254 H (75-99) mg/dL Microbiology - Last 24 Hours (Table) 06/07/17 06:43 Blood Culture - Preliminary Blood No Growth after 96 hours Assessment and Plan Plan: Assessment 1 acute exacerbation of COPD complicated by possible tracheobronchitis and right -sided pleural effusion. #2 nicotine addiction #3 chronic persistent atrial fibrillation #4 chronic renal failure #5 history of liver disease #6 rheumatic mitral valve disease, mitral stenosis status post mitral valvoplasty #7 acute on chronic anemia #8 anorexia/cachexia syndrome #9 CHRONIC pleural effusion status post recent pigtail catheter insertion and drainage #10 abnormal troponins, not consistent with acute coronary syndrome, likely secondary to oxygen supply and demand mismatch. Plan Medications have been reviewed and will be continued as ordered. We will add Diamox 250 mg twice a day for 7 days to help with her CO2 level. All labs and reports have been reviewed. No plans for thoracentesis at this time. Repeat labs tomorrow. Continue with pulmonary hygiene, coughing and deep breathing exercises, and supportive care. Supplemental oxygen to maintain oxygen saturations of 92% or better. Continue nebulizer treatments. GI and DVT prophylaxis. Cardiology also on consult and appreciate recommendations. We will continue to monitor labs/results and adjust treatment as necessary. Further recommendations pending. I performed an examination of the patient and discussed their management with the nurse practitioner. I have reviewed the nurse practitioner's note and agree with the documented findings and plan of care.
[2017-06-11] MEDS: NICOTINE 14MG/24HR PATCH TRANSDERM SCH (16:45)
[2017-06-11] MEDS: LEVOFLOXACIN 750 MG TAB PO SCH (16:46)
[2017-06-11] MEDS: WARFARIN 2 MG TAB PO SCH (16:46)
[2017-06-11 17:20] LABS: Glucose,Whole Blood 251 mg/dL (75-99)
[2017-06-11 21:06] LABS: Glucose,Whole Blood 207 mg/dL (75-99)
[2017-06-11] MEDS: ATORVASTATIN 40 MG TAB PO SCH (21:59)
[2017-06-11] MEDS: acetaZOLAMIDE 250 MG TAB PO SCH (21:59)
[2017-06-12] MEDS: methylPREDNISolone SOD SUCCI 125 MG/2 ML VIAL IV SCH ×3 (00:24→12:44)
[2017-06-12] MEDS: CLOTRIMAZOLE TROCHE 10 MG TROCHE MUCOUS MEM SCH ×5 (00:24→20:43)
[2017-06-12] MEDS: HYDROcodone/APAP 10-325MG 1 EACH TAB PO PRN ×3 (01:15→18:49)
[2017-06-12] MEDS: HYDROmorphone 1 MG/ML 1 ML SYRINGE IVP PRN ×5 (02:18→20:43)
[2017-06-12] MEDS: IPRATROPIUM-ALBUTEROL 3 ML NEB INHALATION PRN ×5 (02:24→23:16)
[2017-06-12] MEDS: traZODone HCL 50 MG TAB PO PRN (03:18)
[2017-06-12 07:38] LABS: Glucose,Whole Blood 221 mg/dL (75-99)
[2017-06-12 09:12] LABS: Anion Gap 7 mmol/L; Blood Urea Nitrogen 35 mg/dL (7-17); Calcium 9.2 mg/dL (8.4-10.2); Carbon Dioxide 38 mmol/L (22-30); Chloride 90 mmol/L (98-107); Glucose 192 mg/dL (74-99); Non-African American GFR(MDRD) >60 (>60 ml/min/1.73 sqM); Potassium 4.3 mmol/L (3.5-5.1); Sodium 135 mmol/L (137-145)
[2017-06-12] MEDS: PANTOPRAZOLE 40 MG TABLET PO SCH (09:43)
[2017-06-12] MEDS: DIGOXIN 125 MCG TAB PO SCH (09:43)
[2017-06-12] MEDS: FUROSEMIDE 40 MG TAB PO SCH ×2 (09:43→20:42)
[2017-06-12] MEDS: POTASSIUM CHLORIDE ER 10 MEQ TAB.ER.PRT PO SCH (09:46)
[2017-06-12] MEDS: guaiFENesin 600 MG TABLET.ER PO SCH ×2 (09:46→20:41)
[2017-06-12] MEDS: acetaZOLAMIDE 250 MG TAB PO SCH ×2 (09:46→20:42)
[2017-06-12] MEDS: DOCUSATE 100 MG CAP PO SCH (09:46)
[2017-06-12] MEDS: INSULIN LISPRO (humaLOG) 300 UNIT/3 ML VIAL SQ SCH ×4 (09:50→21:46)
[2017-06-12] MEDS: FORMOTEROL FUMARATE 20 MCG/2 ML NEBU INHALATION SCH ×2 (11:09→19:20)
[2017-06-12] MEDS: BUDESONIDE 1 MG/2 ML NEBU INHALATION SCH ×2 (11:09→19:20)
[2017-06-12 12:04] LABS: Glucose,Whole Blood 200 mg/dL (75-99)
--- NOTE | 2017-06-12 12:20 | P.PN ---
Subjective Interval history. 06/08/17- Patient is being seen evaluated and examined today on the selective care unit. Currently the patient's resting up in bed on 4 L of supplemental oxygen. She continues to complain of shortness of breath on and off with exertion. Patient does have a cough that is congested with yellow-green sputum. Patient recently had a thoracentesis on her last hospitalization with bilateral pleural effusions as well as a chest tube. She was discharged and was doing better however she came back to the emergency room on 06/05/2017 for progressive increase in shortness of breath. She has been stable on IV antibiotics and scheduled breathing treatments. Patient states her breathing is slightly better today than admission. She has been afebrile. No overnight events. Labs and reports of been reviewed 06/09/17 patient is being seen examined and evaluated today on rounds and the selective care unit. The patient continues to rest up in bed on 4 L of supplemental oxygen. She states that her shortness of breath with exertion is still persistent. She states she does have a congested cough however the secretions are very thick and she has a hard time bringing them up. She is on Mucinex. Cardiology is also following with the patient. She has been afebrile today and overnight events. All labs and reports have been reviewed. Patient did have an echo on June 07 which did show an ejection fraction of 50-55% she had moderate pulmonary hypertension right ventricular systolic pressure was measured at 70.36 mmHg. Patient did receive a 1 time dose of Lasix yesterday with good urine output. 06/10/17- patient is being seen examined and evaluated today on rounds on the fourth floor. She continues to rest up in bed on 4 L of supplemental oxygen. Persistent shortness of breath with exertion continues with cough and congestion , however is less severe today. The labs and reports have been reviewed. Patient is also being followed by cardiology and infectious disease. She is afebrile no overnight events. 06/11/17- patient is seen and evaluated and examined today in the fourth floor. Who lives in reports have been reviewed the patient was noted to have critical CO2 level of 42 this morning. Patient will be placed on Diamox 250 mg twice a day for 7 days to help lower this level. Currently the patient is resting up in bed on 4 L of supplemental oxygen via nasal cannula continues to be short of breath with exertion and/or activity. Cough and congestion and remain. She is afebrile no overnight events. 06/12/17-patient is seen evaluated and examined today on the fourth floor. All labs and reports have been reviewed. Patient's CO2 level has decreased to 38 today. Patient states she feels slightly better at the time of exam the nation however her shortness of breath does come and go in waves. She does have shortness of breath with all activity. This is her baseline due to her poor prognosis and end-stage COPD. States her appetite waxes and wanes no further complaints. Objective - Vital Signs Vital signs: Vital Signs Temp 96.9 F L 06/12/17 07:00 Pulse 88 06/12/17 11:25 Resp 20 06/12/17 07:00 BP 114/75 06/12/17 07:00 Pulse Ox 99 06/12/17 07:00 Intake & Output 06/11/17 06/12/17 06/12/17 18:59 06:59 18:59 Intake Total 300 400 Balance 300 400 Weight 45.9 kg Intake: Oral 300 400 Other: # Voids 1 6 - Exam GENERAL EXAM: Alert, comfortable in no apparent distress. HEAD: Normocephalic. EYES: Normal reaction of pupils, equal size. NOSE: Clear with pink turbinates. THROAT: No erythema or exudates. NECK: No masses, no JVD. CHEST: No chest wall deformity. LUNGS: Poor air entry bilaterally, few scattered expiratory wheezing noted. Bases diminished. Overall improved, compared to yesterday CVS: S1 and S2 normal with no audible mumurs, regular rhythm. ABDOMEN: No hepatosplenomegaly, normal bowel sounds, no guarding or rigidity. EXTREMITIES: No edema noted, pedal pulses palpable. SKIN: No rashes CENTRAL NERVOUS SYSTEM: No focal deficits, tone is normal in all 4 extremities. - Labs CBC & Chem 7: 06/11/17 07:57 06/12/17 08:09 Labs: Abnormal Lab Results - Last 24 Hours (Table) 06/11/17 06/11/17 06/11/17 Range/Units 12:24 17:10 21:04 Sodium (137-145) mmol/L Chloride (98-107) mmol/L Carbon Dioxide (22-30) mmol/L BUN (7-17) mg/dL Glucose (74-99) mg/dL POC Glucose (mg/dL) 254 H 251 H 207 H (75-99) mg/dL 06/12/17 06/12/17 06/12/17 Range/Units 07:20 08:09 12:00 Sodium 135 L (137-145) mmol/L Chloride 90 L (98-107) mmol/L Carbon Dioxide 38 H (22-30) mmol/L BUN 35 H (7-17) mg/dL Glucose 192 H (74-99) mg/dL POC Glucose (mg/dL) 221 H 200 H (75-99) mg/dL Microbiology - Last 24 Hours (Table) 06/07/17 06:43 Blood Culture - Preliminary Blood No Growth after 120 hours Assessment and Plan Plan: Assessment 1 acute exacerbation of COPD complicated by possible tracheobronchitis and right -sided pleural effusion. #2 nicotine addiction #3 chronic persistent atrial fibrillation #4 chronic renal failure #5 history of liver disease #6 rheumatic mitral valve disease, mitral stenosis status post mitral valvoplasty #7 acute on chronic anemia #8 anorexia/cachexia syndrome #9 CHRONIC pleural effusion status post recent pigtail catheter insertion and drainage #10 abnormal troponins, not consistent with acute coronary syndrome, likely secondary to oxygen supply and demand mismatch. Plan Medications have been reviewed and will be continued as ordered. HEENT pain Diamox 250 mg twice a day for 7 days to help with her CO2 level. Steroids have been decreased. All labs and reports have been reviewed. No plans for thoracentesis at this time. Repeat labs tomorrow. Continue with pulmonary hygiene, coughing and deep breathing exercises, and supportive care. Supplemental oxygen to maintain oxygen saturations of 92% or better. Continue nebulizer treatments. GI and DVT prophylaxis. Cardiology also on consult and appreciate recommendations. We will continue to monitor labs/results and adjust treatment as necessary. Further recommendations pending. I performed an examination of the patient and discussed their management with the nurse practitioner. I have reviewed the nurse practitioner's note and agree with the documented findings and plan of care.
--- NOTE | 2017-06-12 13:35 | PN ---
This is a 57-year-old white female who was admitted with severe shortness of breath and productive cough and patient was admitted with diagnosis of chronic obstructive pulmonary disease with acute exacerbation and acute bronchitis. The patient was seen by Dr. Hinds in consultation and she has been getting updraft treatments, IV Solu-Medrol and IV antibiotics and she is also know to have chronic congestive heart failure, chronic atrial fibrillation and severe mitral stenosis as well as diabetes mellitus and hypertensive cardiovascular disease. Also she has chronic anemia. She has received blood transfusions in the past. Currently, the patient is getting stable and she is still extremely short of breath and using nasal oxygen constantly. She is having some oral candidiasis, which is now getting better with Mycostatin oral suspension and will place her on Diflucan 100 mg p.o. daily for 10 days. Her vital signs are stable, but she is extremely weak. Her hemoglobin has come up to 10. Prognosis is guarded. Will have social welfare clerk make arrangements for discharge arrangements. [facility]
[2017-06-12] MEDS: FLUCONAZOLE 100 MG TAB PO SCH (13:53)
[2017-06-12] MEDS: MAGNESIUM HYDROXIDE 2,400 MG/10 ML CUP PO PRN (13:53)
[2017-06-12] MEDS: FERROUS SULFATE 325 MG TAB PO SCH (13:54)
[2017-06-12] MEDS: NICOTINE 14MG/24HR PATCH TRANSDERM SCH (16:21)
[2017-06-12] MEDS: ALPRAZolam 0.25 MG TAB PO PRN ×2 (16:31→23:41)
[2017-06-12 17:17] LABS: Glucose,Whole Blood 224 mg/dL (75-99)
[2017-06-12] MEDS: WARFARIN 2 MG TAB PO SCH (18:47)
[2017-06-12] MEDS: LEVOFLOXACIN 750 MG TAB PO SCH (18:47)
[2017-06-12] MEDS: ATORVASTATIN 40 MG TAB PO SCH (20:40)
[2017-06-12 21:28] LABS: Glucose,Whole Blood 210 mg/dL (75-99)
[2017-06-13] MEDS: methylPREDNISolone SOD SUCCI 125 MG/2 ML VIAL IV SCH (00:03)
[2017-06-13] MEDS: CLOTRIMAZOLE TROCHE 10 MG TROCHE MUCOUS MEM SCH ×5 (00:03→21:03)
[2017-06-13] MEDS: HYDROmorphone 1 MG/ML 1 ML SYRINGE IVP PRN ×6 (00:44→21:02)
[2017-06-13] MEDS: HYDROcodone/APAP 10-325MG 1 EACH TAB PO PRN ×3 (01:55→21:02)
[2017-06-13] MEDS: traZODone HCL 50 MG TAB PO PRN (01:56)
[2017-06-13 07:22] LABS: Glucose,Whole Blood 115 mg/dL (75-99)
[2017-06-13] MEDS: FORMOTEROL FUMARATE 20 MCG/2 ML NEBU INHALATION SCH ×2 (07:23→19:32)
[2017-06-13] MEDS: IPRATROPIUM-ALBUTEROL 3 ML NEB INHALATION PRN ×4 (07:23→19:32)
[2017-06-13] MEDS: BUDESONIDE 1 MG/2 ML NEBU INHALATION SCH ×2 (07:23→19:32)
[2017-06-13] MEDS: ALPRAZolam 0.25 MG TAB PO PRN ×2 (07:52→16:03)
[2017-06-13 08:14] LABS: Anisocytosis Slight; Basophils # (A) 0.1 k/uL (0-0.2); Basophils % (A) 0 %; CH 21.2; CHCM 28.4; Eosinophils % (A) 0 %; HCT 35.1 % (34.0-46.0); HDW 3.44; HGB 9.7 gm/dL (11.4-16.0); Hypochromasia Marked; Luc % (Auto) 1; Lymphocytes # (A) 2.6 k/uL (1.0-4.8); Lymphocytes % (A) 17 %; MCH 20.6 pg (25.0-35.0); MCHC 27.6 g/dL (31.0-37.0); MCV 74.8 fL (80.0-100.0); Mean Platelet Volume 7.1; Microcytosis Moderate; Monocytes % (A) 6 %; Neutrophils # (A) 11.5 k/uL (1.3-7.7); Neutrophils % (A) 75 %; Poikilocytosis Slight; RBC 4.69 m/uL (3.80-5.40); RDW 17.8 % (11.5-15.5); WBC 15.4 k/uL (3.8-10.6); WBC (Perox) 16.62
[2017-06-13] MEDS: INSULIN LISPRO (humaLOG) 300 UNIT/3 ML VIAL SQ SCH ×4 (08:27→22:12)
[2017-06-13 08:30] LABS: ALT 49 U/L (9-52); AST 33 U/L (14-36); Alkaline Phosphatase 90 U/L (38-126); Anion Gap 6 mmol/L; Blood Urea Nitrogen 37 mg/dL (7-17); Calcium 8.7 mg/dL (8.4-10.2); Carbon Dioxide 37 mmol/L (22-30); Chloride 94 mmol/L (98-107); Glucose 81 mg/dL (74-99); Non-African American GFR(MDRD) 60 (>60 ml/min/1.73 sqM); Potassium 4.4 mmol/L (3.5-5.1); Sodium 137 mmol/L (137-145); Total Bilirubin 0.4 mg/dL (0.2-1.3); Total Protein 5.4 g/dL (6.3-8.2)
[2017-06-13] MEDS: methylPREDNISolone SOD SUCCI 40 MG/ML 1 ML VIAL IV SCH ×2 (09:05→21:04)
[2017-06-13] MEDS: DOCUSATE 100 MG CAP PO SCH (09:05)
[2017-06-13] MEDS: guaiFENesin 600 MG TABLET.ER PO SCH ×2 (09:06→21:04)
[2017-06-13] MEDS: POTASSIUM CHLORIDE ER 10 MEQ TAB.ER.PRT PO SCH (09:06)
[2017-06-13] MEDS: acetaZOLAMIDE 250 MG TAB PO SCH ×2 (09:07→21:03)
[2017-06-13] MEDS: FUROSEMIDE 40 MG TAB PO SCH ×2 (09:07→21:04)
[2017-06-13] MEDS: PANTOPRAZOLE 40 MG TABLET PO SCH (09:07)
[2017-06-13] MEDS: DIGOXIN 125 MCG TAB PO SCH (09:07)
[2017-06-13] MEDS: FLUCONAZOLE 100 MG TAB PO SCH (09:07)
--- NOTE | 2017-06-13 11:24 | P.PN ---
Subjective Interval history. 06/08/17- Patient is being seen evaluated and examined today on the selective care unit. Currently the patient's resting up in bed on 4 L of supplemental oxygen. She continues to complain of shortness of breath on and off with exertion. Patient does have a cough that is congested with yellow-green sputum. Patient recently had a thoracentesis on her last hospitalization with bilateral pleural effusions as well as a chest tube. She was discharged and was doing better however she came back to the emergency room on 06/05/2017 for progressive increase in shortness of breath. She has been stable on IV antibiotics and scheduled breathing treatments. Patient states her breathing is slightly better today than admission. She has been afebrile. No overnight events. Labs and reports of been reviewed 06/09/17 patient is being seen examined and evaluated today on rounds and the selective care unit. The patient continues to rest up in bed on 4 L of supplemental oxygen. She states that her shortness of breath with exertion is still persistent. She states she does have a congested cough however the secretions are very thick and she has a hard time bringing them up. She is on Mucinex. Cardiology is also following with the patient. She has been afebrile today and overnight events. All labs and reports have been reviewed. Patient did have an echo on June 07 which did show an ejection fraction of 50-55% she had moderate pulmonary hypertension right ventricular systolic pressure was measured at 70.36 mmHg. Patient did receive a 1 time dose of Lasix yesterday with good urine output. 06/10/17- patient is being seen examined and evaluated today on rounds on the fourth floor. She continues to rest up in bed on 4 L of supplemental oxygen. Persistent shortness of breath with exertion continues with cough and congestion , however is less severe today. The labs and reports have been reviewed. Patient is also being followed by cardiology and infectious disease. She is afebrile no overnight events. 06/11/17- patient is seen and evaluated and examined today in the fourth floor. Who lives in reports have been reviewed the patient was noted to have critical CO2 level of 42 this morning. Patient will be placed on Diamox 250 mg twice a day for 7 days to help lower this level. Currently the patient is resting up in bed on 4 L of supplemental oxygen via nasal cannula continues to be short of breath with exertion and/or activity. Cough and congestion and remain. She is afebrile no overnight events. 06/12/17-patient is seen evaluated and examined today on the fourth floor. All labs and reports have been reviewed. Patient's CO2 level has decreased to 38 today. Patient states she feels slightly better at the time of exam the nation however her shortness of breath does come and go in waves. She does have shortness of breath with all activity. This is her baseline due to her poor prognosis and end-stage COPD. States her appetite waxes and wanes no further complaints. 06/13/17- she has been seen examined and evaluated today on the fourth floor. All labs and reports have been reviewed. CO2 level is currently at 37 she continues on Diamox. Patient is resting up in bed on 4 L of supplemental oxygen via nasal cannula. Persistent shortness of breath with exertion and/or activity cough and congestion remain and are unchanged. She is afebrile, no overnight events. Objective - Vital Signs Vital signs: Vital Signs Temp 96.8 F L 06/13/17 07:00 Pulse 84 06/13/17 11:10 Resp 18 06/13/17 08:00 BP 102/52 06/13/17 07:00 Pulse Ox 100 06/13/17 07:00 Intake & Output 06/12/17 06/13/17 06/13/17 18:59 06:59 18:59 Intake Total 800 800 Output Total 3 Balance 797 800 Weight 45.9 kg 45.9 kg Intake: Oral 800 800 Output: Stool 3 Other: Voiding Method Toilet Toilet Toilet # Voids 2 3 - Exam GENERAL EXAM: Alert, comfortable in no apparent distress. HEAD: Normocephalic. EYES: Normal reaction of pupils, equal size. NOSE: Clear with pink turbinates. THROAT: No erythema or exudates. NECK: No masses, no JVD. CHEST: No chest wall deformity. LUNGS: Poor air entry bilaterally, few scattered expiratory wheezing noted. Bases diminished. Overall improved, compared to yesterday CVS: S1 and S2 normal with no audible mumurs, regular rhythm. ABDOMEN: No hepatosplenomegaly, normal bowel sounds, no guarding or rigidity. EXTREMITIES: No edema noted, pedal pulses palpable. SKIN: No rashes CENTRAL NERVOUS SYSTEM: No focal deficits, tone is normal in all 4 extremities. - Labs CBC & Chem 7: 06/13/17 07:13 06/13/17 07:13 Labs: Abnormal Lab Results - Last 24 Hours (Table) 06/12/17 06/12/17 06/12/17 Range/Units 12:00 17:06 21:22 WBC (3.8-10.6) k/uL Hgb (11.4-16.0) gm/dL MCV (80.0-100.0) fL MCH (25.0-35.0) pg MCHC (31.0-37.0) g/dL RDW (11.5-15.5) % Neutrophils # (1.3-7.7) k/uL Chloride (98-107) mmol/L Carbon Dioxide (22-30) mmol/L BUN (7-17) mg/dL POC Glucose (mg/dL) 200 H 224 H 210 H (75-99) mg/dL Total Protein (6.3-8.2) g/dL Albumin (3.5-5.0) g/dL 06/13/17 06/13/17 06/13/17 Range/Units 07:13 07:13 07:19 WBC 15.4 H (3.8-10.6) k/uL Hgb 9.7 L (11.4-16.0) gm/dL MCV 74.8 L (80.0-100.0) fL MCH 20.6 L (25.0-35.0) pg MCHC 27.6 L (31.0-37.0) g/dL RDW 17.8 H (11.5-15.5) % Neutrophils # 11.5 H (1.3-7.7) k/uL Chloride 94 L (98-107) mmol/L Carbon Dioxide 37 H (22-30) mmol/L BUN 37 H (7-17) mg/dL POC Glucose (mg/dL) 115 H (75-99) mg/dL Total Protein 5.4 L (6.3-8.2) g/dL Albumin 3.4 L (3.5-5.0) g/dL Microbiology - Last 24 Hours (Table) 06/07/17 06:43 Blood Culture - Final Blood No Growth after 144 hours Assessment and Plan Plan: Assessment 1 acute exacerbation of COPD complicated by possible tracheobronchitis and right -sided pleural effusion. #2 nicotine addiction #3 chronic persistent atrial fibrillation #4 chronic renal failure #5 history of liver disease #6 rheumatic mitral valve disease, mitral stenosis status post mitral valvoplasty #7 acute on chronic anemia #8 anorexia/cachexia syndrome #9 CHRONIC pleural effusion status post recent pigtail catheter insertion and drainage #10 abnormal troponins, not consistent with acute coronary syndrome, likely secondary to oxygen supply and demand mismatch. Plan Patient's prognosis remains highly guarded, due to her multiple chronic comorbidities. Medications have been reviewed and will be continued as ordered. We did add Diamox 250 mg twice a day for 7 days to help with her CO2 level. Steroids have been decreased. All labs and reports have been reviewed. No plans for thoracentesis at this time. Repeat labs tomorrow. Continue with pulmonary hygiene, coughing and deep breathing exercises, and supportive care. Supplemental oxygen to maintain oxygen saturations of 92% or better. Continue nebulizer treatments. GI and DVT prophylaxis. Cardiology also on consult and appreciate recommendations. We will continue to monitor labs/results and adjust treatment as necessary. Further recommendations pending. I performed an examination of the patient and discussed their management with the nurse practitioner. I have reviewed the nurse practitioner's note and agree with the documented findings and plan of care.
--- NOTE | 2017-06-13 12:00 | CDI ---
In responding to this query, please exercise your independent professional judgment. The [facility] Coding Staff and Clinical Documentation Specialists appreciate your assistance in clarifying documentation, maintaining compliance with coding guidelines, accurately documenting patients condition and capturing severity of illness. The fact that a question is asked does not imply that any particular answer is desired or expected. Communication forms are a method of clarifying documentation and are not made part of the Legal Health Record. Thank you in advance for your clarification. Last Revision, August 2015 Yolanda Diallo [address] [place] [address] Documentation Clarification Form 2nd Request- Please Document Response in Progress Notes Date: 06/07/2017 9:54:00 AM From: Lynette Evans RN, CCDS Admit Date: 06/05/2017 7:07:00 PM Patient Name: Mariah Loya Visit Number: [id number] Dr. Morales Eubanks Anorexia/Cachexia syndrome is documented in the Pulmonary Consult . History/Risk Factors: COPD, DM, GERD, Liver Disease, Acute on Chronic respiratory failure, chronic renal disease Clinical Indicators: 06/06 Pulmonary Consult: General exam: "Frail, cachectic." Labs: Albumin: 3.8 Total Protein: 6.3 Current BMI:16 Insufficient energy intake: Severe COPD with home O2 and severe SOB Treatment: Dietary Consult: Not ordered Supplements/TPN: none ordered- regular Diet Lab monitoring: on admission In your professional opinion, can you please clarify if these findings signify one of the following conditions? Mild Protein-Calorie Malnutrition Moderate Protein-Calorie Malnutrition Severe Protein-Calorie Malnutrition Other condition, please specify Unable to determine Please document in your progress notes and discharge summary in order to capture severity of illness and risk of mortality. Include clinical findings that support your diagnosis. FYI: Press F11 to launch patient chart. Place X here if this finding has no clinical significance, is not applicable or if you are not able to provide any additional documentation. [facility]
[2017-06-13] MEDS: FERROUS SULFATE 325 MG TAB PO SCH (12:03)
[2017-06-13 12:37] LABS: Glucose,Whole Blood 193 mg/dL (75-99)
[2017-06-13 17:02] LABS: Glucose,Whole Blood 344 mg/dL (75-99)
[2017-06-13] MEDS: NICOTINE 14MG/24HR PATCH TRANSDERM SCH ×2 (17:09→17:30)
[2017-06-13] MEDS: WARFARIN 2 MG TAB PO SCH (17:10)
[2017-06-13] MEDS: LEVOFLOXACIN 750 MG TAB PO SCH (17:10)
[2017-06-13 17:59] LABS: INR 2.7 (<1.2); Prothrombin Time 26.5 sec (9.0-12.0)
[2017-06-13] MEDS: ATORVASTATIN 40 MG TAB PO SCH (21:04)
[2017-06-13 22:03] LABS: Glucose,Whole Blood 133 mg/dL (75-99)
[2017-06-14] MEDS: ALPRAZolam 0.25 MG TAB PO PRN ×3 (00:07→22:43)
[2017-06-14] MEDS: CLOTRIMAZOLE TROCHE 10 MG TROCHE MUCOUS MEM SCH ×6 (00:07→23:34)
[2017-06-14] MEDS: HYDROmorphone 1 MG/ML 1 ML SYRINGE IVP PRN ×5 (01:19→22:39)
[2017-06-14] MEDS: HYDROcodone/APAP 10-325MG 1 EACH TAB PO PRN ×3 (05:05→20:49)
--- NOTE | 2017-06-14 05:43 | PN ---
DATE OF SERVICE: 06/13/2017 This 57-year-old white female who has multiple chronic illness. She is known to have chronic obstructive pulmonary disease and she was admitted at this time with acute exacerbation and pneumonia. The patient also is known to have chronic congestive heart failure with severe mitral stenosis. She has had 2 times mitral valvuloplasty in the past. Patient also is known to have diabetes mellitus, chronic anemia and hypertensive cardiovascular disease, chronic atrial fibrillation. Patient was seen by Dr. Segun Hinds in consultation and currently she is receiving updraft treatments, IV Solu-Medrol and antibiotics. Patient was also seen by Dr. Castellon in consultation because she has had some bacteremia. The patient is also being followed by [facility]. The patient has some improvement in her symptoms. She is still extremely weak and extremely short of breath using nasal oxygen constantly. She has episodes of respiratory distress. Her vital signs otherwise stable. Her hemoglobin today is 9.7. She has received multiple blood transfusions in the past. Social service is making arrangements for her discharge. Prognosis guarded. The diagnosis, prognosis and therapeutic plans were discussed in detail with the patient and also with her today. [facility]ACC
[2017-06-14 07:23] LABS: Glucose,Whole Blood 189 mg/dL (75-99)
[2017-06-14] MEDS: FORMOTEROL FUMARATE 20 MCG/2 ML NEBU INHALATION SCH ×2 (08:02→19:41)
[2017-06-14] MEDS: BUDESONIDE 1 MG/2 ML NEBU INHALATION SCH ×2 (08:02→19:41)
[2017-06-14 08:11] LABS: Anisocytosis Slight; Basophils # (A) 0.1 k/uL (0-0.2); Basophils % (A) 0 %; CH 20.5; CHCM 27.7; Eosinophils % (A) 0 %; HCT 34.3 % (34.0-46.0); HDW 3.35; HGB 9.6 gm/dL (11.4-16.0); Hypochromasia Marked; Luc # (Auto) 0.15; Luc % (Auto) 1; Lymphocytes # (A) 1.2 k/uL (1.0-4.8); Lymphocytes % (A) 8 %; MCH 20.8 pg (25.0-35.0); MCHC 28.1 g/dL (31.0-37.0); MCV 74.1 fL (80.0-100.0); Mean Platelet Volume 6.5; Microcytosis Moderate; Monocytes # (A) 0.7 k/uL (0-1.0); Monocytes % (A) 4 %; Neutrophils # (A) 13.9 k/uL (1.3-7.7); Neutrophils % (A) 87 %; RBC 4.62 m/uL (3.80-5.40); RDW 17.2 % (11.5-15.5); WBC (Perox) 15.77
[2017-06-14 08:18] LABS: INR 3.3 (<1.2); Prothrombin Time 31.8 sec (9.0-12.0)
[2017-06-14 08:21] LABS: AST 28 U/L (14-36); Alkaline Phosphatase 101 U/L (38-126); Anion Gap 9 mmol/L; Blood Urea Nitrogen 37 mg/dL (7-17); Calcium 8.6 mg/dL (8.4-10.2); Carbon Dioxide 30 mmol/L (22-30); Chloride 96 mmol/L (98-107); Glucose 210 mg/dL (74-99); Non-African American GFR(MDRD) >60 (>60 ml/min/1.73 sqM); Potassium 4.2 mmol/L (3.5-5.1); Sodium 135 mmol/L (137-145); Total Bilirubin 0.4 mg/dL (0.2-1.3); Total Protein 5.4 g/dL (6.3-8.2)
[2017-06-14 08:28] LABS: ALT 43 U/L (9-52)
[2017-06-14] MEDS: INSULIN LISPRO (humaLOG) 300 UNIT/3 ML VIAL SQ SCH ×4 (08:59→20:51)
[2017-06-14] MEDS: DIGOXIN 125 MCG TAB PO SCH (09:00)
[2017-06-14] MEDS: DOCUSATE 100 MG CAP PO SCH (09:00)
[2017-06-14] MEDS: acetaZOLAMIDE 250 MG TAB PO SCH ×2 (09:00→20:50)
[2017-06-14] MEDS: methylPREDNISolone SOD SUCCI 40 MG/ML 1 ML VIAL IV SCH (09:01)
[2017-06-14] MEDS: POTASSIUM CHLORIDE ER 10 MEQ TAB.ER.PRT PO SCH (09:01)
[2017-06-14] MEDS: FUROSEMIDE 40 MG TAB PO SCH ×2 (09:01→20:50)
[2017-06-14] MEDS: PANTOPRAZOLE 40 MG TABLET PO SCH (09:01)
[2017-06-14] MEDS: guaiFENesin 600 MG TABLET.ER PO SCH ×2 (09:01→20:50)
[2017-06-14] MEDS: FLUCONAZOLE 100 MG TAB PO SCH (09:01)
--- NOTE | 2017-06-14 09:53 | P.PN ---
Subjective Principal diagnosis: Patient is doing well breathing comfortably on supplemental oxygen no obvious hemodynamic distress is present would recommend to DC the Solu-Medrol changed to oral prednisone was tapered to bring it to baseline of 10 mg Interval history. 06/08/17- Patient is being seen evaluated and examined today on the selective care unit. Currently the patient's resting up in bed on 4 L of supplemental oxygen. She continues to complain of shortness of breath on and off with exertion. Patient does have a cough that is congested with yellow-green sputum. Patient recently had a thoracentesis on her last hospitalization with bilateral pleural effusions as well as a chest tube. She was discharged and was doing better however she came back to the emergency room on 06/05/2017 for progressive increase in shortness of breath. She has been stable on IV antibiotics and scheduled breathing treatments. Patient states her breathing is slightly better today than admission. She has been afebrile. No overnight events. Labs and reports of been reviewed 06/09/17 patient is being seen examined and evaluated today on rounds and the selective care unit. The patient continues to rest up in bed on 4 L of supplemental oxygen. She states that her shortness of breath with exertion is still persistent. She states she does have a congested cough however the secretions are very thick and she has a hard time bringing them up. She is on Mucinex. Cardiology is also following with the patient. She has been afebrile today and overnight events. All labs and reports have been reviewed. Patient did have an echo on June 07 which did show an ejection fraction of 50-55% she had moderate pulmonary hypertension right ventricular systolic pressure was measured at 70.36 mmHg. Patient did receive a 1 time dose of Lasix yesterday with good urine output. 06/10/17- patient is being seen examined and evaluated today on rounds on the fourth floor. She continues to rest up in bed on 4 L of supplemental oxygen. Persistent shortness of breath with exertion continues with cough and congestion , however is less severe today. The labs and reports have been reviewed. Patient is also being followed by cardiology and infectious disease. She is afebrile no overnight events. 06/11/17- patient is seen and evaluated and examined today in the fourth floor. Who lives in reports have been reviewed the patient was noted to have critical CO2 level of 42 this morning. Patient will be placed on Diamox 250 mg twice a day for 7 days to help lower this level. Currently the patient is resting up in bed on 4 L of supplemental oxygen via nasal cannula continues to be short of breath with exertion and/or activity. Cough and congestion and remain. She is afebrile no overnight events. 06/12/17-patient is seen evaluated and examined today on the fourth floor. All labs and reports have been reviewed. Patient's CO2 level has decreased to 38 today. Patient states she feels slightly better at the time of exam the nation however her shortness of breath does come and go in waves. She does have shortness of breath with all activity. This is her baseline due to her poor prognosis and end-stage COPD. States her appetite waxes and wanes no further complaints. 06/13/17- she has been seen examined and evaluated today on the fourth floor. All labs and reports have been reviewed. CO2 level is currently at 37 she continues on Diamox. Patient is resting up in bed on 4 L of supplemental oxygen via nasal cannula. Persistent shortness of breath with exertion and/or activity cough and congestion remain and are unchanged. She is afebrile, no overnight events. Objective - Vital Signs Vital signs: Vital Signs Temp 97.6 F 06/14/17 07:00 Pulse 90 06/14/17 08:30 Resp 20 06/14/17 07:00 BP 118/65 06/14/17 07:00 Pulse Ox 99 06/14/17 07:00 Intake & Output 06/13/17 06/14/17 06/14/17 18:59 06:59 18:59 Intake Total 1200 Output Total 301 Balance -301 1200 Weight 45.9 kg Intake: Oral 1200 Output: Urine 300 Stool 1 Other: Voiding Method Toilet # Voids 2 4 # Bowel Movements 1 - Exam GENERAL EXAM: Alert, comfortable in no apparent distress. HEAD: Normocephalic. EYES: Normal reaction of pupils, equal size. NOSE: Clear with pink turbinates. THROAT: No erythema or exudates. NECK: No masses, no JVD. CHEST: No chest wall deformity. LUNGS: Poor air entry bilaterally, few scattered expiratory wheezing noted. Bases diminished. Overall improved, compared to yesterday CVS: S1 and S2 normal with no audible mumurs, regular rhythm. ABDOMEN: No hepatosplenomegaly, normal bowel sounds, no guarding or rigidity. EXTREMITIES: No edema noted, pedal pulses palpable. SKIN: No rashes CENTRAL NERVOUS SYSTEM: No focal deficits, tone is normal in all 4 extremities. - Labs CBC & Chem 7: 06/14/17 07:38 06/14/17 07:38 Labs: Abnormal Lab Results - Last 24 Hours (Table) 06/13/17 06/13/17 06/13/17 Range/Units 12:30 16:53 17:13 WBC (3.8-10.6) k/uL Hgb (11.4-16.0) gm/dL MCV (80.0-100.0) fL MCH (25.0-35.0) pg MCHC (31.0-37.0) g/dL RDW (11.5-15.5) % Neutrophils # (1.3-7.7) k/uL PT 26.5 H (9.0-12.0) sec INR 2.7 H (<1.2) Sodium (137-145) mmol/L Chloride (98-107) mmol/L BUN (7-17) mg/dL Glucose (74-99) mg/dL POC Glucose (mg/dL) 193 H 344 H (75-99) mg/dL Total Protein (6.3-8.2) g/dL Albumin (3.5-5.0) g/dL 06/13/17 06/14/17 06/14/17 Range/Units 21:49 06:42 07:38 WBC 16.0 H (3.8-10.6) k/uL Hgb 9.6 L (11.4-16.0) gm/dL MCV 74.1 L (80.0-100.0) fL MCH 20.8 L (25.0-35.0) pg MCHC 28.1 L (31.0-37.0) g/dL RDW 17.2 H (11.5-15.5) % Neutrophils # 13.9 H (1.3-7.7) k/uL PT (9.0-12.0) sec INR (<1.2) Sodium (137-145) mmol/L Ch[place]ide (98-107) mmol/L BUN (7-17) mg/dL Glucose (74-99) mg/dL POC Glucose (mg/dL) 133 H 189 H (75-99) mg/dL Total Protein (6.3-8.2) g/dL Albumin (3.5-5.0) g/dL 06/14/17 06/14/17 Range/Units 07:38 07:38 WBC (3.8-10.6) k/uL Hgb (11.4-16.0) gm/dL MCV (80.0-100.0) fL MCH (25.0-35.0) pg MCHC (31.0-37.0) g/dL RDW (11.5-15.5) % Neutrophils # (1.3-7.7) k/uL PT 31.8 H (9.0-12.0) sec INR 3.3 H (<1.2) Sodium 135 L (137-145) mmol/L Chloride 96 L (98-107) mmol/L BUN 37 H (7-17) mg/dL Glucose 210 H (74-99) mg/dL POC Glucose (mg/dL) (75-99) mg/dL Total Protein 5.4 L (6.3-8.2) g/dL Albumin 3.4 L (3.5-5.0) g/dL Microbiology - Last 24 Hours (Table) 06/07/17 06:43 Blood Culture - Final Blood No Growth after 144 hours Assessment and Plan Plan: Assessment 1 acute exacerbation of COPD complicated by possible tracheobronchitis and right -sided pleural effusion. #2 nicotine addiction #3 chronic persistent atrial fibrillation #4 chronic renal failure #5 history of liver disease #6 rheumatic mitral valve disease, mitral stenosis status post mitral valvoplasty #7 acute on chronic anemia #8 anorexia/cachexia syndrome #9 CHRONIC pleural effusion status post recent pigtail catheter insertion and drainage #10 abnormal troponins, not consistent with acute coronary syndrome, likely secondary to oxygen supply and demand mismatch. Plan Patient's prognosis remains highly guarded, due to her multiple chronic comorbidities. Medications have been reviewed and will be continued as ordered. We did add Diamox 250 mg twice a day for 7 days to help with her CO2 level. Steroids have been decreased. All labs and reports have been reviewed. No plans for thoracentesis at this time. Repeat labs tomorrow. Continue with pulmonary hygiene, coughing and deep breathing exercises, and supportive care. Supplemental oxygen to maintain oxygen saturations of 92% or better. Continue nebulizer treatments. GI and DVT prophylaxis. Cardiology also on consult and appreciate recommendations. We will continue to monitor labs/results and adjust treatment as necessary. Further recommendations pending. Time with Patient: Greater than 30
[2017-06-14] MEDS: FERROUS SULFATE 325 MG TAB PO SCH (11:20)
[2017-06-14 12:25] LABS: Glucose,Whole Blood 126 mg/dL (75-99)
[2017-06-14] MEDS: NICOTINE 14MG/24HR PATCH TRANSDERM SCH (14:50)
[2017-06-14] MEDS ORDERED: HYDROmorphone 1 MG/ML 1 ML SYRINGE IVP PRN (14:56)
[2017-06-14] MEDS: IPRATROPIUM-ALBUTEROL 3 ML NEB INHALATION PRN ×2 (15:12→19:41)
[2017-06-14] MEDS: WARFARIN 2 MG TAB PO SCH (16:38)
[2017-06-14 17:36] LABS: Glucose,Whole Blood 216 mg/dL (75-99)
[2017-06-14] MEDS: LEVOFLOXACIN 750 MG TAB PO SCH (17:38)
[2017-06-14 20:47] LABS: Glucose,Whole Blood 399 mg/dL (75-99)
[2017-06-14] MEDS: MAGNESIUM HYDROXIDE 2,400 MG/10 ML CUP PO PRN (20:49)
[2017-06-14] MEDS: ATORVASTATIN 40 MG TAB PO SCH (20:50)
[2017-06-15] MEDS: HYDROcodone/APAP 10-325MG 1 EACH TAB PO PRN ×2 (03:40→09:55)
[2017-06-15] MEDS: HYDROmorphone 1 MG/ML 1 ML SYRINGE IVP PRN ×3 (06:18→22:44)
[2017-06-15] MEDS: CLOTRIMAZOLE TROCHE 10 MG TROCHE MUCOUS MEM SCH ×4 (06:18→22:03)
[2017-06-15] MEDS: FORMOTEROL FUMARATE 20 MCG/2 ML NEBU INHALATION SCH ×2 (07:35→20:03)
[2017-06-15] MEDS: BUDESONIDE 1 MG/2 ML NEBU INHALATION SCH ×2 (07:36→20:03)
[2017-06-15] MEDS: IPRATROPIUM-ALBUTEROL 3 ML NEB INHALATION PRN ×4 (07:36→20:03)
[2017-06-15 07:46] LABS: Glucose,Whole Blood 133 mg/dL (75-99)
[2017-06-15] MEDS: INSULIN LISPRO (humaLOG) 300 UNIT/3 ML VIAL SQ SCH ×4 (08:09→21:56)
[2017-06-15 09:05] LABS: Anisocytosis Slight; Basophils # (A) 0.1 k/uL (0-0.2); Basophils % (A) 0 %; CH 21.3; CHCM 28.5; Eosinophils % (A) 0 %; HCT 36.4 % (34.0-46.0); HDW 3.42; HGB 10.1 gm/dL (11.4-16.0); Hypochromasia Marked; Luc # (Auto) 0.22; Luc % (Auto) 1; Lymphocytes # (A) 3.5 k/uL (1.0-4.8); Lymphocytes % (A) 20 %; MCH 20.6 pg (25.0-35.0); MCHC 27.7 g/dL (31.0-37.0); MCV 74.6 fL (80.0-100.0); Mean Platelet Volume 7.3; Microcytosis Moderate; Monocytes # (A) 0.9 k/uL (0-1.0); Monocytes % (A) 5 %; Neutrophils # (A) 12.6 k/uL (1.3-7.7); Neutrophils % (A) 73 %; Poikilocytosis Slight; RBC 4.87 m/uL (3.80-5.40); WBC 17.2 k/uL (3.8-10.6); WBC (Perox) 18.11
[2017-06-15 09:15] LABS: INR 2.6 (<1.2)
[2017-06-15] MEDS: guaiFENesin 600 MG TABLET.ER PO SCH ×2 (09:55→22:04)
[2017-06-15] MEDS: ALPRAZolam 0.25 MG TAB PO PRN (09:55)
[2017-06-15] MEDS: FUROSEMIDE 40 MG TAB PO SCH ×2 (09:55→22:04)
[2017-06-15] MEDS: ERGOCALCIFEROL 50,000 UNIT CAP PO SCH (09:55)
[2017-06-15] MEDS: PANTOPRAZOLE 40 MG TABLET PO SCH (09:56)
[2017-06-15] MEDS: predniSONE 20 MG TAB PO SCH (09:56)
[2017-06-15] MEDS: DIGOXIN 125 MCG TAB PO SCH (09:56)
[2017-06-15] MEDS: DOCUSATE 100 MG CAP PO SCH (09:56)
[2017-06-15] MEDS: POTASSIUM CHLORIDE ER 10 MEQ TAB.ER.PRT PO SCH (09:56)
[2017-06-15] MEDS: FLUCONAZOLE 100 MG TAB PO SCH (09:56)
[2017-06-15] MEDS: acetaZOLAMIDE 250 MG TAB PO SCH ×2 (09:56→22:03)
[2017-06-15 10:09] LABS: ALT 44 U/L (9-52); AST 30 U/L (14-36); Alkaline Phosphatase 125 U/L (38-126); Anion Gap 7 mmol/L; Blood Urea Nitrogen 36 mg/dL (7-17); Carbon Dioxide 30 mmol/L (22-30); Chloride 99 mmol/L (98-107); Glucose 145 mg/dL (74-99); Non-African American GFR(MDRD) >60 (>60 ml/min/1.73 sqM); Sodium 136 mmol/L (137-145); Total Bilirubin 0.4 mg/dL (0.2-1.3); Total Protein 5.6 g/dL (6.3-8.2)
[2017-06-15] MEDS: MAGNESIUM HYDROXIDE 2,400 MG/10 ML CUP PO PRN (11:46)
[2017-06-15] MEDS: FERROUS SULFATE 325 MG TAB PO SCH (11:47)
[2017-06-15 12:40] LABS: Glucose,Whole Blood 234 mg/dL (75-99)
[2017-06-15] MEDS ORDERED: BISACODYL 10 MG SUPP RECTAL STA (14:15)
[2017-06-15] MEDS: NICOTINE 14MG/24HR PATCH TRANSDERM SCH (15:42)
[2017-06-15 17:32] LABS: Glucose,Whole Blood 203 mg/dL (75-99)
[2017-06-15] MEDS: LEVOFLOXACIN 750 MG TAB PO SCH (17:57)
[2017-06-15] MEDS: WARFARIN 2 MG TAB PO SCH (17:58)
[2017-06-15 21:23] LABS: Glucose,Whole Blood 312 mg/dL (75-99)
[2017-06-15] MEDS: ATORVASTATIN 40 MG TAB PO SCH (22:03)
[2017-06-16] MEDS: ALPRAZolam 0.25 MG TAB PO PRN ×2 (00:35→08:28)
[2017-06-16] MEDS: CLOTRIMAZOLE TROCHE 10 MG TROCHE MUCOUS MEM SCH ×5 (00:35→21:10)
[2017-06-16] MEDS: HYDROmorphone 1 MG/ML 1 ML SYRINGE IVP PRN ×3 (06:16→18:46)
[2017-06-16] MEDS: HYDROcodone/APAP 10-325MG 1 EACH TAB PO PRN ×3 (06:20→18:47)
[2017-06-16 07:20] LABS: Glucose,Whole Blood 267 mg/dL (75-99)
--- NOTE | 2017-06-16 07:42 | PN ---
DATE OF SERVICE: 06/15/17 This is a 57-year-old white female who has multiple chronic illness and she was admitted to the hospital this time with increasing shortness of breath and was found to have COPD with acute exacerbation and pneumonia and the patient was started on IV antibiotics and updraft treatments, IV Solu Medrol and was seen by Dr. Segun Hinds in consultation. The patient is also known to have chronic atrial fibrillation, severe mitral stenosis and chronic congestive heart failure and diabetes mellitus and anemia. The patient has received several blood transfusions in the past and the patients diabetes is being controlled with NovoLog sliding scale. The patient was also seen and being followed by cardiology associates. Overall her general condition clinically improved but she is still extremely weak and using nasal oxygen constantly. Arrangements are being made for her to be discharged with home health care and social service is trying to make the arrangements. Vital signs are stable. She is currently receiving pain medication Dilaudid and [place]. We will cut down the Dilaudid and continue her on [place] so that she will be able to go home with [place] alone. Overall prognosis guarded. Apparently she is homeless now and she is planning to go to a friends house. That makes it more difficult to make the discharge arrangements. I have discussed this with the casework manager and she is going to discuss with the social media intern. ISACC
--- NOTE | 2017-06-16 07:52 | PN ---
This is a 57-year-old white female who was admitted with increasing shortness of breath and cough and was diagnoses with COPD with acute exacerbation and pneumonia. The patient was treated with IV antibiotics and updraft treatments, IV Solu Medrol and was found to have bacteremia. She was also seen by Dr. Castellon in consultation and Dr. Segun Hinds was following her for lung problems. She was seen by [facility] in consultation because she has chronic congestive heart failure, chronic atrial fibrillation and severe mitral stenosis. Her symptoms have improved but she still is extremely weak and using nasal oxygen constantly and she apparently psychosocial rehabilitation counselor and network planner are making arrangements for discharge. However, the patient does not have her own home to go when discharged but psychosocial rehabilitation counselor is trying to see if she can be discharged to a rehab unit. Otherwise, she is symptom-armas she has improved. Her pain being controlled with Dilaudid and [place]. The patient has chronic low back pain. Overall prognosis guarded. MTDD
[2017-06-16 08:16] LABS: Anisocytosis Slight; Basophils # (A) 0.1 k/uL (0-0.2); Basophils % (A) 0 %; CH 20.5; CHCM 28.5; Eosinophils % (A) 0 %; HCT 34.7 % (34.0-46.0); HGB 10.1 gm/dL (11.4-16.0); Hypochromasia Marked; INR 2.3 (<1.2); Luc # (Auto) 0.26; Luc % (Auto) 1; Lymphocytes # (A) 2.2 k/uL (1.0-4.8); Lymphocytes % (A) 11 %; MCHC 29.1 g/dL (31.0-37.0); MCV 72.1 fL (80.0-100.0); Mean Platelet Volume 6.9; Microcytosis Moderate; Monocytes # (A) 1.1 k/uL (0-1.0); Monocytes % (A) 6 %; Neutrophils # (A) 15.6 k/uL (1.3-7.7); Neutrophils % (A) 81 %; Poikilocytosis Slight; Prothrombin Time 21.8 sec (9.0-12.0); RBC 4.82 m/uL (3.80-5.40); RDW 17.3 % (11.5-15.5); WBC 19.2 k/uL (3.8-10.6)
[2017-06-16] MEDS: FORMOTEROL FUMARATE 20 MCG/2 ML NEBU INHALATION SCH ×2 (08:19→20:14)
[2017-06-16] MEDS: IPRATROPIUM-ALBUTEROL 3 ML NEB INHALATION PRN ×4 (08:19→20:14)
[2017-06-16] MEDS: BUDESONIDE 1 MG/2 ML NEBU INHALATION SCH ×2 (08:19→20:14)
[2017-06-16] MEDS: guaiFENesin 600 MG TABLET.ER PO SCH ×2 (08:24→22:10)
[2017-06-16] MEDS: DIGOXIN 125 MCG TAB PO SCH (08:24)
[2017-06-16] MEDS: FUROSEMIDE 40 MG TAB PO SCH ×2 (08:25→21:09)
[2017-06-16] MEDS: acetaZOLAMIDE 250 MG TAB PO SCH ×2 (08:25→21:09)
[2017-06-16] MEDS: FLUCONAZOLE 100 MG TAB PO SCH (08:25)
[2017-06-16] MEDS: PANTOPRAZOLE 40 MG TABLET PO SCH (08:26)
[2017-06-16] MEDS: DOCUSATE 100 MG CAP PO SCH (08:26)
[2017-06-16] MEDS: INSULIN LISPRO (humaLOG) 300 UNIT/3 ML VIAL SQ SCH ×4 (08:26→21:11)
[2017-06-16] MEDS: POTASSIUM CHLORIDE ER 10 MEQ TAB.ER.PRT PO SCH (08:26)
[2017-06-16] MEDS: predniSONE 20 MG TAB PO SCH (08:26)
[2017-06-16 08:49] LABS: ALT 38 U/L (9-52); AST 29 U/L (14-36); Alkaline Phosphatase 98 U/L (38-126); Anion Gap 9 mmol/L; Blood Urea Nitrogen 36 mg/dL (7-17); Calcium 8.5 mg/dL (8.4-10.2); Carbon Dioxide 25 mmol/L (22-30); Chloride 102 mmol/L (98-107); Glucose 233 mg/dL (74-99); Non-African American GFR(MDRD) >60 (>60 ml/min/1.73 sqM); Potassium 4.5 mmol/L (3.5-5.1); Sodium 136 mmol/L (137-145); Total Bilirubin 0.4 mg/dL (0.2-1.3); Total Protein 5.6 g/dL (6.3-8.2)
--- NOTE | 2017-06-16 10:04 | P.PN ---
Subjective Principal diagnosis: Patient is doing well breathing comfortably on supplemental oxygen no obvious hemodynamic distress is present would recommend to DC the Solu-Medrol changed to oral prednisone was tapered to bring it to baseline of 10 mg Interval history. 06/08/17- Patient is being seen evaluated and examined today on the selective care unit. Currently the patient's resting up in bed on 4 L of supplemental oxygen. She continues to complain of shortness of breath on and off with exertion. Patient does have a cough that is congested with yellow-green sputum. Patient recently had a thoracentesis on her last hospitalization with bilateral pleural effusions as well as a chest tube. She was discharged and was doing better however she came back to the emergency room on 06/05/2017 for progressive increase in shortness of breath. She has been stable on IV antibiotics and scheduled breathing treatments. Patient states her breathing is slightly better today than admission. She has been afebrile. No overnight events. Labs and reports of been reviewed 06/09/17 patient is being seen examined and evaluated today on rounds and the selective care unit. The patient continues to rest up in bed on 4 L of supplemental oxygen. She states that her shortness of breath with exertion is still persistent. She states she does have a congested cough however the secretions are very thick and she has a hard time bringing them up. She is on Mucinex. Cardiology is also following with the patient. She has been afebrile today and overnight events. All labs and reports have been reviewed. Patient did have an echo on June 07 which did show an ejection fraction of 50-55% she had moderate pulmonary hypertension right ventricular systolic pressure was measured at 70.36 mmHg. Patient did receive a 1 time dose of Lasix yesterday with good urine output. 06/10/17- patient is being seen examined and evaluated today on rounds on the fourth floor. She continues to rest up in bed on 4 L of supplemental oxygen. Persistent shortness of breath with exertion continues with cough and congestion , however is less severe today. The labs and reports have been reviewed. Patient is also being followed by cardiology and infectious disease. She is afebrile no overnight events. 06/11/17- patient is seen and evaluated and examined today in the fourth floor. Who lives in reports have been reviewed the patient was noted to have critical CO2 level of 42 this morning. Patient will be placed on Diamox 250 mg twice a day for 7 days to help lower this level. Currently the patient is resting up in bed on 4 L of supplemental oxygen via nasal cannula continues to be short of breath with exertion and/or activity. Cough and congestion and remain. She is afebrile no overnight events. 06/12/17-patient is seen evaluated and examined today on the fourth floor. All labs and reports have been reviewed. Patient's CO2 level has decreased to 38 today. Patient states she feels slightly better at the time of exam the nation however her shortness of breath does come and go in waves. She does have shortness of breath with all activity. This is her baseline due to her poor prognosis and end-stage COPD. States her appetite waxes and wanes no further complaints. 06/13/17- she has been seen examined and evaluated today on the fourth floor. All labs and reports have been reviewed. CO2 level is currently at 37 she continues on Diamox. Patient is resting up in bed on 4 L of supplemental oxygen via nasal cannula. Persistent shortness of breath with exertion and/or activity cough and congestion remain and are unchanged. She is afebrile, no overnight events. Objective - Vital Signs Vital signs: Vital Signs Temp 97.0 F L 06/16/17 07:00 Pulse 96 06/16/17 08:38 Resp 18 06/16/17 07:00 BP 114/53 06/16/17 07:00 Pulse Ox 100 06/16/17 07:00 Intake & Output 06/15/17 06/16/17 06/16/17 18:59 06:59 18:59 Intake Total 650 Output Total 302 Balance 348 Weight 45.9 kg Intake: Oral 650 Output: Urine 300 Stool 2 Other: Voiding Method Toilet # Voids 3 4 # Bowel Movements 1 - Exam GENERAL EXAM: Alert, comfortable in no apparent distress. HEAD: Normocephalic. EYES: Normal reaction of pupils, equal size. NOSE: Clear with pink turbinates. THROAT: No erythema or exudates. NECK: No masses, no JVD. CHEST: No chest wall deformity. LUNGS: Poor air entry bilaterally, few scattered expiratory wheezing noted. Bases diminished. Overall improved, compared to yesterday CVS: S1 and S2 normal with no audible mumurs, regular rhythm. ABDOMEN: No hepatosplenomegaly, normal bowel sounds, no guarding or rigidity. EXTREMITIES: No edema noted, pedal pulses palpable. SKIN: No rashes CENTRAL NERVOUS SYSTEM: No focal deficits, tone is normal in all 4 extremities. - Labs CBC & Chem 7: 06/16/17 07:42 06/16/17 07:42 Labs: Abnormal Lab Results - Last 24 Hours (Table) 06/15/17 06/15/17 06/15/17 Range/Units 08:27 12:38 17:16 WBC (3.8-10.6) k/uL Hgb (11.4-16.0) gm/dL MCV (80.0-100.0) fL MCH (25.0-35.0) pg MCHC (31.0-37.0) g/dL RDW (11.5-15.5) % Neutrophils # (1.3-7.7) k/uL Monocytes # (0-1.0) k/uL PT (9.0-12.0) sec INR (<1.2) Sodium 136 L (137-145) mmol/L BUN 36 H (7-17) mg/dL Glucose 145 H (74-99) mg/dL POC Glucose (mg/dL) 234 H 203 H (75-99) mg/dL Total Protein 5.6 L (6.3-8.2) g/dL 06/15/17 06/16/17 06/16/17 Range/Units 21:19 07:17 07:42 WBC 19.2 H (3.8-10.6) k/uL Hgb 10.1 L (11.4-16.0) gm/dL MCV 72.1 L (80.0-100.0) fL MCH 21.0 L (25.0-35.0) pg MCHC 29.1 L (31.0-37.0) g/dL RDW 17.3 H (11.5-15.5) % Neutrophils # 15.6 H (1.3-7.7) k/uL Monocytes # 1.1 H (0-1.0) k/uL PT (9.0-12.0) sec INR (<1.2) Sodium (137-145) mmol/L BUN (7-17) mg/dL Glucose (74-99) mg/dL POC Glucose (mg/dL) 312 H 267 H (75-99) mg/dL Total Protein (6.3-8.2) g/dL 06/16/17 06/16/17 Range/Units 07:42 07:42 WBC (3.8-10.6) k/uL Hgb (11.4-16.0) gm/dL MCV (80.0-100.0) fL MCH (25.0-35.0) pg MCHC (31.0-37.0) g/dL RDW (11.5-15.5) % Neutrophils # (1.3-7.7) k/uL Monocytes # (0-1.0) k/uL PT 21.8 H (9.0-12.0) sec INR 2.3 H (<1.2) Sodium 136 L (137-145) mmol/L BUN 36 H (7-17) mg/dL Glucose 233 H (74-99) mg/dL POC Glucose (mg/dL) (75-99) mg/dL Total Protein 5.6 L (6.3-8.2) g/dL Assessment and Plan Plan: Assessment 1 acute exacerbation of COPD complicated by possible tracheobronchitis and right -sided pleural effusion. #2 nicotine addiction #3 chronic persistent atrial fibrillation #4 chronic renal failure #5 history of liver disease #6 rheumatic mitral valve disease, mitral stenosis status post mitral valvoplasty #7 acute on chronic anemia #8 anorexia/cachexia syndrome #9 CHRONIC pleural effusion status post recent pigtail catheter insertion and drainage #10 abnormal troponins, not consistent with acute coronary syndrome, likely secondary to oxygen supply and demand mismatch. Plan Patient's prognosis remains highly guarded, due to her multiple chronic comorbidities. Medications have been reviewed and will be continued as ordered. We did add Diamox 250 mg twice a day for 7 days to help with her CO2 level. Steroids have been decreased. All labs and reports have been reviewed. No plans for thoracentesis at this time. Repeat labs tomorrow. Continue with pulmonary hygiene, coughing and deep breathing exercises, and supportive care. Supplemental oxygen to maintain oxygen saturations of 92% or better. Continue nebulizer treatments. GI and DVT prophylaxis. Cardiology also on consult and appreciate recommendations. We will continue to monitor labs/results and adjust treatment as necessary. Further recommendations pending.
[2017-06-16 12:40] LABS: Glucose,Whole Blood 169 mg/dL (75-99)
[2017-06-16] MEDS: FERROUS SULFATE 325 MG TAB PO SCH (13:04)
[2017-06-16] MEDS: WARFARIN 2 MG TAB PO SCH (16:47)
[2017-06-16] MEDS: LEVOFLOXACIN 750 MG TAB PO SCH (16:48)
[2017-06-16] MEDS: NICOTINE 14MG/24HR PATCH TRANSDERM SCH (16:48)
[2017-06-16 17:07] LABS: Glucose,Whole Blood 329 mg/dL (75-99)
[2017-06-16 21:04] LABS: Glucose,Whole Blood 125 mg/dL (75-99)
[2017-06-16] MEDS: ATORVASTATIN 40 MG TAB PO SCH (21:09)
--- NOTE | 2017-06-16 22:46 | PN ---
DATE OF SERVICE: 06/16/2017 This is a 57-year-old white female who was admitted with COPD with acute exacerbation and pneumonia. Patient has long-standing history of COPD. She has had several hospitalizations for pneumonia. She is also known to have chronic congestive heart failure and very serious mitral stenosis and chronic atrial fibrillation. She has had mitral valvuloplasty 2 times in the past. She has been evaluated by cardiac surgeons. Because of her severe multiple comorbidities , she was recommended continued medical treatment. She was not a candidate for any cardiac surgery. Patient was started on IV antibiotics, updraft treatments and IV Solu-Medrol. She was seen and followed by aws architect Dr. Segun Hinds. Patient also was seen by [facility] in consultation and they have been following the patient. Dr. Castellon saw the patient with regard to her pneumonia. Also she has had bacteremia. Currently patient has clinically improved but is still extremely weak and short of breath. She is using nasal oxygen constantly. She also has chronic anemia, wherefore she has received multiple transfusions in the past and she is also on ferrous sulfate. Today her hemoglobin is 10.1. Patient was recommended to go to a rehab unit, either in [facility] or [facility], upon discharge because her home condition is not good enough for her to be staying there because she needs help from visiting nurse and home health care. Patient has no home to go when discharged. She is going to stay in a friend's house in the basement, but patient is interested in going there when discharged. She refuses to go to a long-term rehab unit ( ) and patient is not getting any IV medications. She is mostly on oral medications. She has been getting some physical therapy, but she is still extremely weak. The patient is going to be discharged tomorrow. We will send her home with home health care if she is at the above. Prognosis guarded. MTDD
[2017-06-17] MEDS: CLOTRIMAZOLE TROCHE 10 MG TROCHE MUCOUS MEM SCH ×6 (00:24→23:35)
[2017-06-17] MEDS: HYDROmorphone 1 MG/ML 1 ML SYRINGE IVP PRN ×2 (01:06→07:05)
[2017-06-17] MEDS: HYDROcodone/APAP 10-325MG 1 EACH TAB PO PRN ×2 (02:06→08:33)
[2017-06-17] MEDS: ALPRAZolam 0.25 MG TAB PO PRN ×2 (02:07→08:34)
[2017-06-17 07:42] LABS: Glucose,Whole Blood 147 mg/dL (75-99)
[2017-06-17] MEDS: DOCUSATE 100 MG CAP PO SCH (08:31)
[2017-06-17] MEDS: PANTOPRAZOLE 40 MG TABLET PO SCH (08:31)
[2017-06-17] MEDS: guaiFENesin 600 MG TABLET.ER PO SCH ×2 (08:32→20:15)
[2017-06-17] MEDS: FUROSEMIDE 40 MG TAB PO SCH ×2 (08:32→20:15)
[2017-06-17] MEDS: predniSONE 10 MG TAB PO SCH (08:32)
[2017-06-17] MEDS: acetaZOLAMIDE 250 MG TAB PO SCH ×2 (08:32→20:15)
[2017-06-17] MEDS: POTASSIUM CHLORIDE ER 10 MEQ TAB.ER.PRT PO SCH (08:32)
[2017-06-17] MEDS: DIGOXIN 125 MCG TAB PO SCH (08:32)
[2017-06-17] MEDS: FLUCONAZOLE 100 MG TAB PO SCH (08:33)
[2017-06-17] MEDS: INSULIN LISPRO (humaLOG) 300 UNIT/3 ML VIAL SQ SCH ×4 (08:38→22:01)
[2017-06-17] MEDS: FORMOTEROL FUMARATE 20 MCG/2 ML NEBU INHALATION SCH ×2 (08:43→20:03)
[2017-06-17] MEDS: IPRATROPIUM-ALBUTEROL 3 ML NEB INHALATION PRN ×2 (08:43→20:03)
[2017-06-17] MEDS: BUDESONIDE 1 MG/2 ML NEBU INHALATION SCH ×2 (08:43→20:03)
[2017-06-17 08:53] LABS: INR 3.2 (<1.2); Prothrombin Time 31.3 sec (9.0-12.0)
[2017-06-17 09:04] LABS: Anisocytosis Slight; CH 21.2; CHCM 28.6; HCT 38.5 % (34.0-46.0); HDW 3.38; HGB 10.8 gm/dL (11.4-16.0); Hypochromasia Marked; Immature Gran Flag Slight; MCH 20.8 pg (25.0-35.0); MCV 74.2 fL (80.0-100.0); Mean Platelet Volume 7.2; Microcytosis Moderate; RBC 5.19 m/uL (3.80-5.40); RDW 18.2 % (11.5-15.5); WBC (Perox) 24.21
[2017-06-17 09:15] LABS: ALT 43 U/L (9-52); AST 30 U/L (14-36); Alkaline Phosphatase 86 U/L (38-126); Anion Gap 10 mmol/L; Blood Urea Nitrogen 34 mg/dL (7-17); Calcium 8.9 mg/dL (8.4-10.2); Carbon Dioxide 29 mmol/L (22-30); Chloride 101 mmol/L (98-107); Glucose 118 mg/dL (74-99); Non-African American GFR(MDRD) >60 (>60 ml/min/1.73 sqM); Sodium 140 mmol/L (137-145); Total Bilirubin 0.5 mg/dL (0.2-1.3); Total Protein 6.2 g/dL (6.3-8.2)
[2017-06-17 10:39] LABS: Add Differential Manual Differential
[2017-06-17 10:40] LABS: Band Neutrophils % 2 %; Metamyelocytes % 1 %; Myelocytes % 1 %; Nucleated Red Blood Cells 1 /100 WBC (0-0); Total Cells Counted 100
[2017-06-17 10:41] LABS: Manual Review Performed; WBC 23.3 k/uL (3.8-10.6)
[2017-06-17] MEDS: FERROUS SULFATE 325 MG TAB PO SCH (12:00)
[2017-06-17] MEDS: oxyCODONE-APAP 10-325MG 1 EACH TAB PO PRN ×3 (12:02→23:35)
[2017-06-17 12:13] LABS: Glucose,Whole Blood 189 mg/dL (75-99)
[2017-06-17 17:21] LABS: Glucose,Whole Blood 390 mg/dL (75-99)
[2017-06-17] MEDS: NICOTINE 14MG/24HR PATCH TRANSDERM SCH ×2 (17:40→17:43)
[2017-06-17] MEDS: LEVOFLOXACIN 750 MG TAB PO SCH (17:40)
[2017-06-17] MEDS: WARFARIN 2 MG TAB PO SCH (17:40)
[2017-06-17] MEDS: ATORVASTATIN 40 MG TAB PO SCH (20:15)
[2017-06-17 20:53] LABS: Glucose,Whole Blood 121 mg/dL (75-99)
[2017-06-18] MEDS: ALPRAZolam 0.25 MG TAB PO PRN (00:09)
[2017-06-18] MEDS: traZODone HCL 50 MG TAB PO PRN (01:38)
[2017-06-18] MEDS: oxyCODONE-APAP 10-325MG 1 EACH TAB PO PRN ×2 (05:39→11:24)
[2017-06-18] MEDS: CLOTRIMAZOLE TROCHE 10 MG TROCHE MUCOUS MEM SCH ×2 (05:40→11:24)
[2017-06-18 07:37] LABS: INR 3.2 (<1.2); Prothrombin Time 31.5 sec (9.0-12.0)
[2017-06-18 07:38] LABS: Glucose,Whole Blood 114 mg/dL (75-99)
[2017-06-18 07:51] VITALS: BP 95/53; RESP 22; TEMP 97.7
--- NOTE | 2017-06-18 08:03 | PN ---
DATE OF SERVICE: 06/17/2017 This 57-year-old white female who was admitted with chronic obstructive pulmonary disease with acute exacerbation and pneumonia. Patient also has multiple other chronic comorbidities. She has chronic congestive heart failure , chronic atrial fibrillation, diabetes mellitus, and severe mitral stenosis chronic low back pain. The patient was evaluated by cardiac surgeon and recommended that she be continued on medical management because she is not a suitable candidate for surgical treatment of mitral stenosis. Patient has had ( ) in the past. The patient currently has improved clinically, but she is extremely weak and still using nasal oxygen constantly. Patient is going to be discharged home, but patient does not have her own home and is going to be staying with a parent in the basement of that home. Patient wants to stay one more day in the hospital because the arrangements have not been completed and she probably will be discharged tomorrow and patient also wants to change the pain medications from [place] to Percocet and that Percocet has been more effective in controlling her pain. So we will discontinue [place] and Dilaudid today and will place her on Percocet one q.6h p.r.n. Patients is going to make the arrangements for her to be going home tomorrow. Prognosis still guarded. According to the plan the patient will be discharged home tomorrow. ISACC
[2017-06-18] MEDS: INSULIN LISPRO (humaLOG) 300 UNIT/3 ML VIAL SQ SCH ×2 (08:14→12:25)
[2017-06-18] MEDS: acetaZOLAMIDE 250 MG TAB PO SCH (08:16)
[2017-06-18] MEDS: FUROSEMIDE 40 MG TAB PO SCH (08:16)
[2017-06-18] MEDS: PANTOPRAZOLE 40 MG TABLET PO SCH (08:16)
[2017-06-18] MEDS: POTASSIUM CHLORIDE ER 10 MEQ TAB.ER.PRT PO SCH (08:16)
[2017-06-18] MEDS: DOCUSATE 100 MG CAP PO SCH (08:17)
[2017-06-18] MEDS: predniSONE 10 MG TAB PO SCH (08:17)
[2017-06-18] MEDS: DIGOXIN 125 MCG TAB PO SCH (08:18)
[2017-06-18] MEDS: FLUCONAZOLE 100 MG TAB PO SCH (08:18)
[2017-06-18] MEDS: guaiFENesin 600 MG TABLET.ER PO SCH (08:18)
[2017-06-18] MEDS: BUDESONIDE 1 MG/2 ML NEBU INHALATION SCH (08:55)
[2017-06-18] MEDS: IPRATROPIUM-ALBUTEROL 3 ML NEB INHALATION PRN ×2 (08:55→13:53)
[2017-06-18] MEDS: FORMOTEROL FUMARATE 20 MCG/2 ML NEBU INHALATION SCH (08:55)
[2017-06-18] MEDS: FERROUS SULFATE 325 MG TAB PO SCH (11:24)
[2017-06-18 11:56] LABS: Glucose,Whole Blood 306 mg/dL (75-99)
[2017-06-18 13:57] VITALS: PULSE 80
--- NOTE | 2017-06-18 22:04 | PN ---
DATE OF SERVICE: 06/17/2017 Ms. Loya is seen, evaluated and examined. Her steroids are being tapered down. Continued on breathing treatment. She is overall in good spirits. Gets short of breath, however, on activity and exertion. Her last set of vitals include blood pressure is 95/53, respiratory rate 22, pulse 77, temperature 97.7, saturation 100% on 4 liters oxygen. HEENT: Otherwise unremarkable except prominent neck veins. No bruits present. LUNGS: Bilateral good air entry with very fine expiratory rhonchi. HEART: Irregularly irregular. S1/S2 audible. 2/6 LV systolic murmur is present. ABDOMEN: Soft. No rebound or rigidity. EXTREMITIES: Trace edema. NEUROLOGIC: Otherwise awake and alert. Labs reviewed. Medications reviewed as well. Glucose is 121, however, in the morning was 390. IMPRESSION: 1. Severe chronic obstructive pulmonary disease and emphysema with chronic persistent asthma acute exacerbation, better under control. Would recommend to taper down the prednisone to bring it to baseline of 10 daily. 2. Severe degree of mitral valve disease and mitral stenosis, being monitored and observed. Patient is not a surgical candidate. 3. Chronic renal failure. 4. Chronic atrial fibrillation. 5. Anemia of chronic disease. 6. Cachexia, anorexia and protein-calorie malnourishment. PLAN: As above. Continue supportive care. Other issues include pleural effusion. Would recommend to monitor and observe. No plans for aggressive intervention in that regard. Will follow. MTDD
== END 2017-06-18 15:31 | disposition home or self-care (01) | DRG 190 ==
LOC: EC 16:15 → 6SEL 19:07 → 4MS4W 06-09 15:36
PROVIDERS: ADMIT Internal Medicine; ATTEND Internal Medicine
DX: J44.1 Chronic obstructive pulmonary disease with (acute) exacerbation (principal); J18.9 Pneumonia, unspecified organism; J96.11 Chronic respiratory failure with hypoxia; I13.0 Hypertensive heart and chronic kidney disease with heart failure and stage 1 through stage 4 chronic kidney disease, or unspecified chronic kidney disease; E46 Unspecified protein-calorie malnutrition; R64 Cachexia; R78.81 Bacteremia; I27.2 Other secondary pulmonary hypertension; B37.0 Candidal stomatitis; I50.42 Chronic combined systolic (congestive) and diastolic (congestive) heart failure; I48.1 Persistent atrial fibrillation; Z68.1 Body mass index [BMI] 19.9 or less, adult; J44.0 Chronic obstructive pulmonary disease with (acute) lower respiratory infection; E11.22 Type 2 diabetes mellitus with diabetic chronic kidney disease; I48.2 Chronic atrial fibrillation; N18.9 Chronic kidney disease, unspecified; I05.0 Rheumatic mitral stenosis; D63.8 Anemia in other chronic diseases classified elsewhere; B95.7 Other staphylococcus as the cause of diseases classified elsewhere; I36.1 Nonrheumatic tricuspid (valve) insufficiency; R13.10 Dysphagia, unspecified; G89.29 Other chronic pain; K21.9 Gastro-esophageal reflux disease without esophagitis; F41.9 Anxiety disorder, unspecified; R68.2 Dry mouth, unspecified; G47.9 Sleep disorder, unspecified; R53.1 Weakness; R74.8 Abnormal levels of other serum enzymes; M54.5 Low back pain; F17.210 Nicotine dependence, cigarettes, uncomplicated; Z90.710 Acquired absence of both cervix and uterus; Z79.899 Other long term (current) drug therapy; Z79.52 Long term (current) use of systemic steroids; Z82.49 Family history of ischemic heart disease and other diseases of the circulatory system; Z79.01 Long term (current) use of anticoagulants; Z59.0 Homelessness; Z71.3 Dietary counseling and surveillance; Z71.6 Tobacco abuse counseling; Z98.891 History of uterine scar from previous surgery; Z86.19 Personal history of other infectious and parasitic diseases; Z87.01 Personal history of pneumonia (recurrent); Z87.19 Personal history of other diseases of the digestive system; Z99.81 Dependence on supplemental oxygen; Z81.8 Family history of other mental and behavioral disorders; Z87.09 Personal history of other diseases of the respiratory system
CPT/HCPCS: 36415; 71020; 80048; 80053; 80162; 80202; 82550; 82553; 83605; 83735; 83880; 84484; 85025; 85610; 85730; 87040; 93005; 93306; 94640; 94760; 96361; 96365; 96366; 96375; 96376; 99291